=== PATIENT | male | born 1940 | race Caucasian/White ===

== ENCOUNTER 2023-04-16 10:44 | Outpatient (OUT) | payer MEDICARE, BC, SELFPAY ==
[2023-04-16 11:09] LABS: Basophils Absolute Auto 0.1 10^3/uL (0.0-0.1); Basophils Percent Auto 0.6 % (0.2-2.0); Eosinophils Absolute Auto 0.4 10^3/uL (0.0-0.7); Eosinophils Percent Auto 4.4 % (0.9-7.0); Hematocrit 34.5 % (42.0-54.0); Hemoglobin 11.3 g/dL (14.0-18.0); Immature Granulocytes Abs Auto 0.05 10^3/uL (0.00-0.03); Immature Granulocytes Pct Auto 0.5 % (0.0-0.5); Lymphocytes Absolute Auto 3.1 10^3/uL (1.2-3.8); Lymphocytes Percent Auto 30.6 % (20.5-60.0); Mean Corpuscular HGB Conc 32.8 g/dL (29.9-35.2); Mean Corpuscular Hemoglobin 31.2 pg (25.9-34.0); Mean Corpuscular Volume 95.3 fL (80.0-94.0); Mean Platelet Volume 9.3 fL (9.5-13.5); Monocytes Absolute Auto 0.6 10^3/uL (0.3-0.8); Monocytes Percent Auto 6.1 % (1.7-12.0); Neutrophils Absolute Auto 5.8 10^3/uL (1.4-6.5); Neutrophils Percent Auto 57.8 % (43.0-75.0); Platelet Count 235 10^3/uL (150-450); Red Blood Count 3.62 10^6/uL (4.70-6.10); Red Cell Distribution Width 14.6 % (11.0-15.0)
[2023-04-16 11:54] LABS: Alanine Aminotransferase 18 U/L (16-63); Albumin Globulin Ratio 0.7; Albumin Level 3.2 g/dL (3.4-5.0); Alkaline Phosphatase 63 U/L (46-116); Anion Gap 15.6; Aspartate Amino Transferase 12 U/L (15-37); BUN Creatinine Ratio 27.9; Bilirubin Total 0.1 mg/dL (0.2-1.0); Calcium 9.8 mg/dL (8.5-10.1); Carbon Dioxide 23.5 mmol/L (21.0-32.0); Chloride 106 mmol/L (98-107); Estimated GFR (African America 48 (>=60); Estimated GFR (Non-African Ame 40 (>=60); Globulin 4.8 g/dL; Glucose 153 mg/dL (74-106); Potassium 5.1 mmol/L (3.5-5.1); Sodium 140 mmol/L (136-145)
== END 2023-04-16 10:45 | disposition home or self-care (01) ==
LOC: LAB 10:50
PROVIDERS: PCP Family Medicine
DX: I95.89 Other hypotension (principal)
CPT/HCPCS: 36415; 80053; 85025

== ENCOUNTER 2023-06-11 11:27 | Outpatient (OUT) | payer MEDICARE, BC, SELFPAY ==
[2023-06-11 15:12] LABS: Prostate Specific Antigen Dx 0.69 ng/mL (<=4.00)
== END 2023-06-11 11:28 | disposition home or self-care (01) ==
LOC: LAB 11:31
PROVIDERS: PCP Family Medicine; Visit Provider Urology
DX: Z85.46 Personal history of malignant neoplasm of prostate (principal)
CPT/HCPCS: 36415; 84153

== ENCOUNTER 2023-06-11 11:34 | Outpatient (OUT) | payer MEDICARE, BC, SELFPAY ==
[2023-06-11 12:07] LABS: Basophils Absolute Auto 0.1 10^3/uL (0.0-0.1); Basophils Percent Auto 0.6 % (0.2-2.0); Eosinophils Absolute Auto 0.5 10^3/uL (0.0-0.7); Eosinophils Percent Auto 6.5 % (0.9-7.0); Hemoglobin 11.6 g/dL (14.0-18.0); Immature Granulocytes Abs Auto 0.03 10^3/uL (0.00-0.03); Immature Granulocytes Pct Auto 0.4 % (0.0-0.5); Lymphocytes Absolute Auto 2.7 10^3/uL (1.2-3.8); Lymphocytes Percent Auto 33.7 % (20.5-60.0); Mean Corpuscular HGB Conc 31.4 g/dL (29.9-35.2); Mean Corpuscular Hemoglobin 30.9 pg (25.9-34.0); Mean Corpuscular Volume 98.7 fL (80.0-94.0); Monocytes Absolute Auto 0.6 10^3/uL (0.3-0.8); Monocytes Percent Auto 7.7 % (1.7-12.0); Neutrophils Absolute Auto 4.1 10^3/uL (1.4-6.5); Neutrophils Percent Auto 51.1 % (43.0-75.0); Platelet Count 217 10^3/uL (150-450); Red Blood Count 3.75 10^6/uL (4.70-6.10); Red Cell Distribution Width 14.6 % (11.0-15.0)
[2023-06-11 12:38] LABS: Alanine Aminotransferase 21 U/L (16-63); Albumin Globulin Ratio 0.8; Albumin Level 3.6 g/dL (3.4-5.0); Alkaline Phosphatase 59 U/L (46-116); Anion Gap 14.2; Aspartate Amino Transferase 18 U/L (15-37); BUN Creatinine Ratio 29.3; Bilirubin Total 0.1 mg/dL (0.2-1.0); Calcium 9.7 mg/dL (8.5-10.1); Carbon Dioxide 26.1 mmol/L (21.0-32.0); Chloride 103 mmol/L (98-107); Estimated GFR (African America 42 (>=60); Estimated GFR (Non-African Ame 34 (>=60); Globulin 4.3 g/dL; Glucose 143 mg/dL (74-106); Potassium 5.3 mmol/L (3.5-5.1); Sodium 138 mmol/L (136-145); Total Protein 7.9 g/dL (6.4-8.2)
== END 2023-06-11 11:35 | disposition home or self-care (01) ==
PROVIDERS: PCP Family Medicine; Visit Provider Nurse Practitioner Acute Care
DX: I95.89 Other hypotension (principal); Z85.46 Personal history of malignant neoplasm of prostate
CPT/HCPCS: 36415; 80053; 84153; 85025

== ENCOUNTER 2023-08-21 09:57 | Outpatient (OUT) | payer MEDICARE, BC, SELFPAY ==
--- NOTE | 2023-08-21 10:06 | ECG_ITS ---
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
[2023-08-21 11:22] LABS: Basophils Percent Auto 0.5 % (0.2-2.0); Eosinophils Absolute Auto 0.4 10^3/uL (0.0-0.7); Eosinophils Percent Auto 5.1 % (0.9-7.0); Hematocrit 41.8 % (42.0-54.0); Hemoglobin 13.4 g/dL (14.0-18.0); Immature Granulocytes Abs Auto 0.02 10^3/uL (0.00-0.03); Immature Granulocytes Pct Auto 0.3 % (0.0-0.5); Lymphocytes Absolute Auto 2.5 10^3/uL (1.2-3.8); Lymphocytes Percent Auto 33.3 % (20.5-60.0); Mean Corpuscular HGB Conc 32.1 g/dL (29.9-35.2); Mean Corpuscular Hemoglobin 32.3 pg (25.9-34.0); Mean Corpuscular Volume 100.7 fL (80.0-94.0); Mean Platelet Volume 9.9 fL (9.5-13.5); Monocytes Absolute Auto 0.5 10^3/uL (0.3-0.8); Monocytes Percent Auto 6.2 % (1.7-12.0); Neutrophils Percent Auto 54.6 % (43.0-75.0); Platelet Count 191 10^3/uL (150-450); Red Blood Count 4.15 10^6/uL (4.70-6.10); Red Cell Distribution Width 13.3 % (11.0-15.0); White Blood Count 7.4 10^3/uL (4.0-11.0)
[2023-08-21 11:44] LABS: INR 0.99; Partial Thromboplastin Time 24.9 sec (22.3-36.2); Prothrombin Time 10.5 sec (9.0-11.6)
[2023-08-21 12:20] LABS: Anion Gap 14.3; BUN Creatinine Ratio 27.8; Calcium 9.9 mg/dL (8.5-10.1); Carbon Dioxide 24.9 mmol/L (21.0-32.0); Chloride 103 mmol/L (98-107); Estimated GFR (African America 37 (>=60); Estimated GFR (Non-African Ame 30 (>=60); Glucose 204 mg/dL (74-106); Potassium 5.2 mmol/L (3.5-5.1); Sodium 137 mmol/L (136-145)
== END 2023-08-21 09:58 | disposition home or self-care (01) ==
LOC: PST 09:59
PROVIDERS: PCP Family Medicine; Visit Provider Urology
DX: Z01.810 Encounter for preprocedural cardiovascular examination (principal); Z01.812 Encounter for preprocedural laboratory examination; Z85.46 Personal history of malignant neoplasm of prostate; K21.9 Gastro-esophageal reflux disease without esophagitis; E78.5 Hyperlipidemia, unspecified; N39.46 Mixed incontinence; I10 Essential (primary) hypertension; E11.9 Type 2 diabetes mellitus without complications; Z79.01 Long term (current) use of anticoagulants; I48.91 Unspecified atrial fibrillation; Z95.0 Presence of cardiac pacemaker
CPT/HCPCS: 80048; 84153; 85025; 85610; 85730; 93005

== ENCOUNTER 2023-08-21 10:20 | Outpatient (OUT) | payer MEDICARE, BC, SELFPAY ==
[2023-08-21 12:36] LABS: Prostate Specific Antigen Dx 0.98 ng/mL (<=4.00)
== END 2023-08-21 10:21 | disposition home or self-care (01) ==
LOC: LAB 10:22
PROVIDERS: PCP Family Medicine; Visit Provider Family Medicine
DX: Z85.46 Personal history of malignant neoplasm of prostate (principal)
CPT/HCPCS: 84153

== ENCOUNTER 2023-08-30 10:33 | Day surgery (SDC) | payer MEDICARE, BC, SELFPAY ==
[2023-08-21 10:59] VITALS: BP 128/81; PULSE 82; RESP 20; TEMP 36.2; O2SAT 97; BMI 25.2
[2023-08-30 11:14] LABS: Glucometer 308 mg/dL (74-106)
[2023-08-30 11:15] VITALS: BP 173/91; PULSE 85; RESP 18; TEMP 36.3; O2SAT 96
[2023-08-30] MEDS: INSULIN ASPART 300 UNIT/3 ML PEN SUBQ (11:43)
[2023-08-30] MEDS: LACTATED RINGER'S SOLUTION 1,000 ML 50 ML IV (11:50)
[2023-08-30 12:28] LABS: Glucometer 217 mg/dL (74-106)
[2023-08-30] MEDS: GENTAMICIN SULFATE 80 MG in 0.9 % SODIUM CHLORIDE 100 ML 204 MG IV (12:48)
[2023-08-30] MEDS: LIDOCAINE HCL 2% 400 MG/20 ML MDV 10 ML INJ (13:38)
[2023-08-30 13:58] VITALS: BP 200/105; PULSE 82; RESP 16; TEMP 36.3; O2SAT 97
--- NOTE | 2023-08-30 14:03 | P.URON_ITS ---
Urology Surgery Operative Note Operative Note Procedure Date: 08/30/23 Time Out Performed: yes Pre-op Diagnosis: total urinary incontinence Post-op Diagnosis: same as pre-op Procedures performed: #1. Cystoscopy. #2. Percutaneous placement of [address] [place] suprapubic tube#3. Urethral meatal dilation to [address] [place]. Anesthesia: MAC and local Primary Surgeon: Ozzy Webster Complications: non- Estimated blood loss (mL): 10 Findings: meatal stenosis. Specimens: none Drains: [address] [place] suprapubic tube Indications for Procedures: this gentleman has had a radical prostatectomy and radiation therapy. He has had total urinary incontinence for many years. He has had a chronic urethral Bland catheter. He then switched to a condom catheter. He is desirous for a suprapubic tube. All risks have been explained to him and he signed an informed consent for cystoscopy and percutaneous placement of suprapubic tube. Detailed description of Procedure: The patient was brought to the operating room and placed on the operating room table in the supine position. SCDs were placed on the lower extremities and turned on and functioning during the entire case. Timeout was done by all parties in the room. We all agreed upon the patient's identification and the planned procedures for this patient. Genn. anesthesia was then administered. The patient was then repositioned into the modified dorsal lithotomy position. All pressure points were satisfactorily padded. Genitalia and abdomen were sterilely prepped and draped in usual fashion.I started by attempting to pass a flexible cystoscope per urethra but was unable due to meatal stenosis. I then used Mary Grace sounds and dilated him up to 24 [address] [place]. I then passed the flexible cystoscope per urethra and into the bladder. The urethra was fairly unremarkable. Panendoscopy in the bladder showed no evidence of any tumors stones or foreign bodies or mucosal lesions. While the bladder was fully distended I palpated suprapubically retirement between the umbilicus and the pubic bone. This was right at the dome of the bladder. It was also right along his radical prostatectomy incision scar. I then injected 1 percent plain lidocaine in the skin creating a wheal and then deeper in the subcutaneous tissues. I then passed a spinal needle through the wheal and then deeply into the dome of the bladder while viewing this endoscopically. The needle was removed.I then used a 15 blade scalpel and made a 2 cm incision over this area. I then used a hemostat to bluntly dissect through the incision down to the bladder. I then removed the cystoscope and then passed a [place] tractor through the urethra and into the bladder. the jaws were then pushed anteriorly to the incision and I was able to palpate the [place] while placing an index finger through the suprapubic incision. I then used the Bovie cautery and cut down onto the [place]. The [place] then was protruding out of the bladder and out of the incision suprapubically. I then gained a purchase on the [address] [place] Bland catheter in the [place] jaws. I then brought the catheter into the bladder and released it in the bladder and then put 30 mL of fluid in the balloon and then removed the [place] tractor. I then passed the cystoscope back in the bladder and could see that the balloon of the suprapubic tube was r ight at the dome of the bladder as desired. The scope was then removed. I then turned my attention to the incision suprapubically. 3-0 Vicryl was used in an interruptted fashion to close the subcutaneous. 5-0 nylon was used in an interrupted fashion to close the skin. The tube was taped to the abdomen in a curvilinear fashion with silk tape. A sterile dressing was placed over the incision. The tube was connected to a leg bag and this was strapped to his thigh. He was then transferred to a [facility] bed and wheeled to PACU in stable condition.
[2023-08-30 14:04] LABS: Glucometer 182 mg/dL (74-106)
[2023-08-30 14:13] VITALS: BP 196/107; PULSE 79; RESP 16; O2SAT 96
--- NOTE | 2023-08-30 14:15 | PC.NURSE ---
DR RODRIGUEZ IS AWARE THAT THE BLOOD PRESSURE OF THIS PATINET IS ELEVATED. HE STATES IT HAS BEEN ELEVATED THROUGHOUT THE ENTIRE CASE.
== END 2023-08-30 14:41 | disposition home or self-care (01) ==
PROVIDERS: PCP Family Medicine; Visit Provider Urology
PROC: (CPT 51102; principal; 2023-08-30 11:40)
DX: N39.498 Other specified urinary incontinence (principal); Z90.79 Acquired absence of other genital organ(s); N35.911 Unspecified urethral stricture, male, meatal; I48.91 Unspecified atrial fibrillation; Z85.46 Personal history of malignant neoplasm of prostate; I10 Essential (primary) hypertension; E78.5 Hyperlipidemia, unspecified; E11.9 Type 2 diabetes mellitus without complications; K21.9 Gastro-esophageal reflux disease without esophagitis; Z87.442 Personal history of urinary calculi; Z87.440 Personal history of urinary (tract) infections; N39.46 Mixed incontinence; Z79.4 Long term (current) use of insulin; Z79.84 Long term (current) use of oral hypoglycemic drugs; Z79.899 Other long term (current) drug therapy
CPT/HCPCS: 51102; 52281; 36415; 82948; J2704

== ENCOUNTER 2023-09-06 13:42 | Observation (INO) | payer MEDICARE, BC, SELFPAY ==
[2023-09-06] VITALS (24 sets, daily range): BP systolic 109–164; BP diastolic 60–95; PULSE 79–106; RESP 13–27; TEMP 36.5–37.1; O2SAT 88–97; BMI 28.4; BMI 26.3
--- NOTE | 2023-09-06 13:56 | ED.ABDPAIN1 ---
HPI - Abdominal Pain General Chief Complaint: Abdominal Pain Stated Complaint: GENERAL WEAKNESS Time Seen by Provider: 09/06/23 13:47 Source: patient Mode of arrival: ambulance History of Present Illness HPI narrative: Patient BIBS from home for evaluation after he complained of abdominal pain for the last two days. He had a suprapubic catheter placed by Dr Webster on 08/30/23 and the dalton is draining yellow urine without clots or blood. No fever or vomiting. The patient was given Xanax before EMS brought him to our ED. According to the family, the patient is at his baseline mentation, with limited ability to answer questions. Related Data Home Medications Medication Instructions Recorded Confirmed alprazolam 1 mg tablet 1 mg PO TID 08/21/23 08/30/23 aspirin 81 mg tablet,delayed 81 mg PO DAILY 08/21/23 08/30/23 release (Adult Aspirin Regimen) calcium carbonate 600 mg-vitamin 1 tab PO DAILY 08/21/23 08/30/23 D3 5 mcg (200 unit) tablet cetirizine 10 mg tablet (All Day 10 mg PO DAILY PRN allergy symptoms 08/21/23 08/30/23 Allergy (cetirizine)) cilostazol 50 mg tablet 50 mg PO BID 08/21/23 08/30/23 citalopram 10 mg tablet 10 mg PO DAILY 08/21/23 08/30/23 diphenhydramine-acetaminophen 2 tab PO QPM 08/21/23 08/30/23 diphenoxylate-atropine 2.5 1 tab PO Q6H PRN diarrhea 08/21/23 08/30/23 mg-0.025 mg tablet (Lomotil) ferrous sulfate 325 mg (65 mg 325 mg PO BID 08/21/23 08/30/23 iron) tablet (Feosol) fluticasone propionate 50 2 spray intranasal Q12H 08/21/23 08/30/23 mcg/actuation nasal spray,suspension gabapentin 100 mg capsule 100 mg PO TID 08/21/23 08/30/23 insulin glargine 100 unit/mL (3 25 unit subcut DAILY 08/21/23 08/30/23 mL) subcutaneous pen (Lantus Solostar U-100 Insulin) insulin lispro 100 unit/mL 1 sliding scale dose subcut TID 08/21/23 08/30/23 subcutaneous pen (Humalog KwikPen (U-100) Insulin) lovastatin 40 mg tablet 40 mg PO DAILY 08/21/23 08/30/23 magnesium 250 mg tablet 250 mg PO BID 08/21/23 08/30/23 metformin 500 mg tablet,extended 1,000 mg PO DAILY 08/21/23 08/30/23 release 24 hr metoprolol succinate 25 mg 25 mg PO DAILY 08/21/23 08/21/23 tablet,extended release 24 hr midodrine 10 mg tablet 10 mg PO BID 08/21/23 08/30/23 mirtazapine 45 mg tablet 45 mg PO QPM 08/21/23 08/30/23 montelukast 10 mg tablet 10 mg PO DAILY 08/21/23 08/30/23 multivitamin (Daily Multi-Vitamin 1 tab PO DAILY 08/21/23 08/30/23 tablet) omeprazole 40 mg capsule,delayed 40 mg PO DAILY 08/21/23 08/30/23 release sodium zirconium cyclosilicate 5 g PO .Three times a week 08/21/23 gram oral powder packet (Evomail) Previous Rx's Medication Instructions Recorded nitrofurantoin 100 mg PO BID 5 days #10 caps 08/30/23 monohydrate/macrocrystals 100 mg capsule (Macrobid) Allergies Allergy/AdvReac Type Severity Reaction Status Date / Time amoxicillin [From Augmentin] Allergy Diarrhea Verified 08/21/23 10:27 canagliflozin [From Invokana] Allergy Unknown Verified 08/21/23 10:27 clavulanic acid Allergy Diarrhea Verified 08/21/23 10:27 [From Augmentin] hydroxyzine Allergy Anxiety Verified 08/21/23 10:27 levofloxacin Allergy joint pain Verified 08/21/23 10:27 mirabegron [From Myrbetriq] Allergy Unknown Verified 08/21/23 10:27 pioglitazone [From Actos] Allergy Abdominal Verified 08/21/23 10:27 Pain PFSH PFS Medical History (Updated 09/06/23 @ 15:07 by Akil White) Abnormal TRUS (transrectal ultrasound), prostate ?R93.89 - Abnormal findings on diagnostic imaging of other specified body structures (ICD-10) Amputation toe ?S98.139A - Complete traumatic amputation of one unspecified lesser toe, initial encounter (ICD-10) Anemia ?D64.9 - Anemia, unspecified (ICD-10) Arthritis ?M19.90 - Unspecified osteoarthritis, unspecified site (ICD-10) Asthma ?J45.909 - Unspecified asthma, uncomplicated (ICD-10) Atrial fibrillation ?I48.91 - Unspecified atrial fibrillation (ICD-10) Diabetes ?E11.9 - Type 2 diabetes mellitus without complications (ICD-10) Elevated PSA ?R97.20 - Elevated prostate specific antigen [PSA] (ICD-10) Glucosuria ?R81 - Glycosuria (ICD-10) H/O esophageal reflux ?Z87.19 - Personal history of other diseases of the digestive system (ICD-10) History of blood transfusion ?Z92.89 - Personal history of other medical treatment (ICD-10) Kidney stones ?N20.0 - Calculus of kidney (ICD-10) Mixed incontinence ?N39.46 - Mixed incontinence (ICD-10) Pacemaker ?Z95.0 - Presence of cardiac pacemaker (ICD-10) Pneumonia ?J18.9 - Pneumonia, unspecified organism (ICD-10) Prostate cancer ?C61 - Malignant neoplasm of prostate (ICD-10) Seasonal allergic rhinitis ?J30.2 - Other seasonal allergic rhinitis (ICD-10) Tremor ?R25.1 - Tremor, unspecified (ICD-10) Ulcer of gastric fundus ?K25.9 - Gastric ulcer, unspecified as acute or chronic, without hemorrhage or perforation (ICD-10) Urinary tract infection ?N39.0 - Urinary tract infection, site not specified (ICD-10) Surgical History (Updated 08/30/23 @ 11:53 by Gracie Cabral) H/O cataract extraction ?Z98.49 - Cataract extraction status, unspecified eye (ICD-10) H/O hand surgery ?Z98.890 - Other specified postprocedural states (ICD-10) H/O lithotripsy ?Z98.890 - Other specified postprocedural states (ICD-10) H/O prostate biopsy ?Z98.890 - Other specified postprocedural states (ICD-10) H/O radical prostatectomy ?Z90.79 - Acquired absence of other genital organ(s) (ICD-10) H/O wrist surgery ?Z98.890 - Other specified postprocedural states (ICD-10) History of arthroscopy of knee ?Z98.890 - Other specified postprocedural states (ICD-10) History of colonoscopy ?Z98.890 - Other specified postprocedural states (ICD-10) History of ear surgery ?Z98.890 - Other specified postprocedural states (ICD-10) History of esophagogastroduodenoscopy ?Z98.890 - Other specified postprocedural states (ICD-10) Family History (Updated 08/21/23 @ 10:37 by Le Mata NP) Other Alcoholism Family history of lung cancer Social History (Updated 08/21/23 @ 10:29 by Le Mata NP) Within the past year, how often did you have a drink containing alcohol: never Score interpretation: A score less than 4 is consistent with normal alcohol consumption. Smoking status: Never smoker Highest level of school completed/degree received: high school graduate Exam Constitutional Vital Signs, click to edit/add: Last Vital Signs Temp 98.8 F 09/06/23 13:45 Pulse 83 09/06/23 15:01 Resp 24 09/06/23 15:01 BP 137/85 09/06/23 15:01 Pulse Ox 97 09/06/23 15:01 O2 Del Method Room Air 09/06/23 13:45 Course Vital Signs Vital signs: Vital Signs Temperature 98.8 F 09/06/23 13:45 Pulse Rate 90 09/06/23 13:45 Respiratory Rate 14 09/06/23 13:45 Blood Pressure 137/86 09/06/23 13:45 Pulse Oximetry 94 L 09/06/23 13:45 Oxygen Delivery Method Room Air 09/06/23 13:45 Temperature 98.8 F 09/06/23 13:45 Pulse Rate 83 09/06/23 15:01 Respiratory Rate 24 09/06/23 15:01 Blood Pressure 137/85 09/06/23 15:01 Pulse Oximetry 97 09/06/23 15:01 Oxygen Delivery Method Room Air 09/06/23 13:45 MDM - Abdominal Pain MDM Narrative Medical decision making narrative: Peripheral IV established. Blood drawn and sent for testing. Urine also sent for testing. CT abd/pelvis obtained without IVC due to the patient's increased BUN/Cr and low GFR. During the patient's ED visits, his BUn and Cr have been steadily increasing. 04/16 = 46, 1.65. 06/11 = 55, 1.88. 08/21 = 58, 2.09. 09/06 = 63, 2.12. UA shows Leuk Est, large bacteria and marked WBC = acute UTI. Normal WBC and no left shift noted. Electrolytes normal. Patient given IV Rocephin and 1L NS IVF. UCx pending and his antibiotic therapy can be adjusted accordingly. CT abd/pelvis revealed left hydronephrosis and hydroureter with what could be either a recently passed stone or distal left ureteral inflammation, per radiologist. Case discussed with Dr Finney and due to the patient's worsening renal function, UTI and ureteral changes, the patient will be admitted on obs basis, [facility], Dr Finney's service.. Medical Records Attestation: I reviewed the patient's medical records. Lab Data Attestation: I reviewed the patient's lab results. Labs: Lab Results 09/06/23 Range/Units 14:02 WBC 9.8 (4.0-11.0) 10^3/uL RBC 3.70 L (4.70-6.10) 10^6/uL Hgb 11.7 L (14.0-18.0) g/dL Hct 37.1 L (42.0-54.0) % MCV 100.3 H (80.0-94.0) fL MCH 31.6 (25.9-34.0) pg MCHC 31.5 (29.9-35.2) g/dL RDW 13.4 (11.0-15.0) % Plt Count 208 (150-450) 10^3/uL MPV 9.8 (9.5-13.5) fL Neut % (Auto) 66.6 (43.0-75.0) % Lymph % (Auto) 21.6 (20.5-60.0) % [place] % (Auto) 5.0 (1.7-12.0) % Eos % (Auto) 5.9 (0.9-7.0) % Baso % (Auto) 0.6 (0.2-2.0) % Neut # (Auto) 6.5 (1.4-6.5) 10^3/uL Lymph # (Auto) 2.1 (1.2-3.8) 10^3/uL [place] # (Auto) 0.5 (0.3-0.8) 10^3/uL Eos # (Auto) 0.6 (0.0-0.7) 10^3/uL Baso # (Auto) 0.1 (0.0-0.1) 10^3/uL Abs Immat Gran (auto) 0.03 (0.00-0.03) 10^3/uL Imm/Tot Granulo (auto) 0.3 (0.0-0.5) % Sodium 139 (136-145) mmol/L Potassium 5.2 H (3.5-5.1) mmol/L Chloride 104 (98-107) mmol/L Carbon Dioxide 25.4 (21.0-32.0) mmol/L Anion Gap 14.8 BUN 63.0 H (7.0-18.0) mg/dL Creatinine 2.12 H (0.70-1.30) mg/dL Est GFR ( Amer) 36 L (>=60) Est GFR (Non-Af Amer) 30 L (>=60) BUN/Creatinine Ratio 29.7 Glucose 282 H (74-106) mg/dL Calcium 9.2 (8.5-10.1) mg/dL Total Bilirubin 0.2 (0.2-1.0) mg/dL AST 10 L (15-37) U/L ALT 17 (16-63) U/L Alkaline Phosphatase 57 (46-116) U/L Total Protein 7.3 (6.4-8.2) g/dL Albumin 3.0 L (3.4-5.0) g/dL Globulin 4.3 g/dL Albumin/Globulin Ratio 0.7 Urine Color Lt. yellow (YELLOW) Urine Clarity Sl cloudy (CLEAR) Urine pH 6.0 (5.0-9.0) Ur Specific [place] 1.015 (1.005-1.025) Urine Protein 30 A (NEG/TRACE) mg/dL Urine Glucose (UA) >=1000 A (NEGATIVE) mg/dL Urine Ketones Negative (NEGATIVE) mg/dL Urine Occult Blood Large A (NEGATIVE) Urine Nitrite Negative (NEGATIVE) Urine Bilirubin Negative (NEGATIVE) Urine Urobilinogen 0.2 (0.2-1.0) EU/dL Ur Leukocyte Esterase Moderate A (NEGATIVE) Urine RBC 50-75 A (0-2) #/HPF Urine WBC 20-50 A (NONE SEEN) #/HPF Ur Squamous Epith Cells Rare (NONE/RARE) #/LPF Urine Crystals None seen (None Seen) #/HPF Urine Bacteria Large A (NONE SEEN) #/HPF Urine Casts None seen (NONE SEEN) #/LPF Urine Mucus None seen (NONE SEEN) Ur Culture Indicated? Yes Imaging Data CT scan - abdomen: Radiologist's impression: Patient Name: RALPH GARG MRN: [facility]:[id number] date: 1940 Sex: M Assigned Patient Location: ER Current Patient Location: ER Accession/Order Number: [id number] Exam Date: 09/06/2023 14:15 Report Date: 09/06/2023 14:48 At the request of: AKIL WHITE Procedure: CT abdomen pelvis wo con EXAM: CT ABDOMEN AND PELVIS WITHOUT CONTRAST HISTORY: generalized abdominal pain abdominal pain for one week. COMPARISON: None. TECHNIQUE: Computed tomography of the abdomen and pelvis was performed without intravenous contrast with a renal stone protocol. Coronal and sagittal reformations were obtained. Dose reduction: mA and/or kV are adjusted by automated exposure control software based on patient size. FINDINGS: There is diffuse cortical thinning and scarring of both kidneys. There are renal cysts bilaterally, largest is a predominantly exophytic cyst off the lower pole left kidney at 6.2 cm. There is a hyperdense cyst at the lateral right kidney interpolar region measuring 1.8 cm. Smaller hyperdense and simple cysts are noted. There are 2 nonobstructing stones in the left kidney, the larger stone at the lower pole measuring 8 x 6 mm. There is mild left hydroureteronephrosis, with dilated ureter to the ureterovesicular junction, without ureteral calculus seen. There is no hydronephrosis on the right. There is a suprapubic catheter decompressing the diffusely thick-walled and mildly inflamed bladder. There is no stones seen within the bladder lumen. Prostate gland is atrophic or surgically absent. Soft tissue structures are suboptimally evaluated without intravenous contrast. Liver and spleen size are normal. Minimal wall thickening with possible minimal stranding of the nondistended gallbladder. No radiopaque gallstones or biliary ductal dilatation. Mildly atrophic pancreas, otherwise normal. Adrenal glands are normal. There is a small amount of oral contrast, fluid, and gas within the stomach. There is a small periampullary duodenal diverticulum. Small bowel is normal. There is a moderate to large volume of stool throughout the colon, with large stool ball in the rectum measuring approximately 6 cm. No significant diverticular disease. There is a normal appendix (image 94 series 3). There is no free fluid. No mesenteric inflammation or free air. There is atherosclerosis of the abdominal aorta and branch vessels. No abdominal aortic aneurysm. Tiny fat-containing bilateral inguinal hernias. There are degenerative changes throughout the spine, with slight retrolisthesis of L3 on L4 and minimal grade 1 anterolisthesis of L4 on L5. No compression fracture or acute osseous abnormality. IMPRESSION: 1. Normal appendix. 2. Negative for bowel obstruction. Large stool ball in the rectum, with moderate to large stool burden; correlate for any symptoms of constipation. No focal bowel inflammation or significant diverticular disease. 3. Suprapubic catheter decompressing the bladder with bladder wall thickening and inflammation reflecting cystitis/bladder infection. No bladder stone identified. 4. Atrophic kidneys with scarring and bilateral renal simple cysts and complicated/hemorrhagic cysts. There is mild left hydroureteronephrosis with dilated ureters seen to the left ureterovesicular junction. No ureteral calculus visualized, and findings could be due to recent passage of a stone from the left side or inflammatory stricture at the left ureterovesicular junction given appearance of the bladder. No hydronephrosis or ureteral calculus on the right. 5. Nondistended gallbladder with subtle gallbladder wall thickening and possible minimal stranding that could be artifactual from lack of distention but correlate for any right upper quadrant symptoms. Follow-up gallbladder ultrasound if clinically indicated. No biliary ductal dilatation. Mildly atrophic pancreas otherwise normal. 6. No free fluid, mesenteric inflammation, or free air. Electronically authenticated by: MARIBEL TRAVIS Date: 09/06/2023 14:48 ECG Data Attestation: ?I have reviewed the pertinent ECG results. Interpretation: EKG interpretation: Emergency Department physician interpretation. wide qrs with what appear to be pacer spikes in leads I, III, aVR, aVL, aVF. Rate 99bpm, regular rhythm. Discharge Plan Discharge Chief Complaint: Abdominal Pain Clinical Impression: Acute renal injury, Hydroureteronephrosis, Acute UTI Patient Disposition: Admitted as Observation Time of Disposition Decision: 15:06 Prescriptions / Home Meds: No Action alprazolam 1 mg tablet 1 mg PO TID cilostazol 50 mg tablet 50 mg PO BID citalopram 10 mg tablet 10 mg PO DAILY fluticasone propionate 50 mcg/actuation spray,suspension 2 spray INTRANASAL Q12H gabapentin 100 mg capsule 100 mg PO TID insulin glargine [Lantus Solostar U-100 Insulin] 100 unit/mL (3 mL) insulin pen 25 unit SUBCUT DAILY insulin lispro [Humalog KwikPen Insulin] 100 unit/mL insulin pen 1 sliding scale dose SUBCUT TID lovastatin 40 mg tablet 40 mg PO DAILY metformin 500 mg tablet extended release 24 hr 1,000 mg PO DAILY metoprolol succinate 25 mg tablet extended release 24 hr 25 mg PO DAILY midodrine 10 mg tablet 10 mg PO BID mirtazapine 45 mg tablet 45 mg PO QPM montelukast 10 mg tablet 10 mg PO DAILY omeprazole 40 mg capsule,delayed release(DR/EC) 40 mg PO DAILY Lokelma 5 gram powder in packet PO .Three times a week ferrous sulfate [Feosol] 325 mg (65 mg iron) tablet 325 mg PO BID aspirin [Adult Aspirin Regimen] 81 mg tablet,delayed release (DR/EC) 81 mg PO DAILY calcium carbonate-vitamin D3 600 mg-5 mcg (200 unit) tablet 1 tab PO DAILY cetirizine [All Day Allergy (cetirizine)] 10 mg tablet 10 mg PO DAILY PRN (Reason: allergy symptoms) magnesium 250 mg tablet 250 mg PO BID multivitamin [Daily Multi-Vitamin] Tablet 1 tab PO DAILY diphenhydramine-acetaminophen [Tylenol PM Extra Strength] 2 tab PO QPM diphenoxylate-atropine [Lomotil] 2.5-0.025 mg tablet 1 tab PO Q6H PRN (Reason: diarrhea) nitrofurantoin monohyd/m-cryst [Macrobid] 100 mg capsule 100 mg PO BID 5 Days Qty: 10 0RF Rx Instructions: must administer with a meal/food Additional Instructions: dr finney, obs, medsurg Referrals: Seb Finney MD [Primary Care Provider] - 1 week
[2023-09-06 14:08] LABS: Basophils Absolute Auto 0.1 10^3/uL (0.0-0.1); Basophils Percent Auto 0.6 % (0.2-2.0); Eosinophils Absolute Auto 0.6 10^3/uL (0.0-0.7); Eosinophils Percent Auto 5.9 % (0.9-7.0); Hematocrit 37.1 % (42.0-54.0); Hemoglobin 11.7 g/dL (14.0-18.0); Immature Granulocytes Abs Auto 0.03 10^3/uL (0.00-0.03); Immature Granulocytes Pct Auto 0.3 % (0.0-0.5); Lymphocytes Absolute Auto 2.1 10^3/uL (1.2-3.8); Lymphocytes Percent Auto 21.6 % (20.5-60.0); Mean Corpuscular HGB Conc 31.5 g/dL (29.9-35.2); Mean Corpuscular Hemoglobin 31.6 pg (25.9-34.0); Mean Corpuscular Volume 100.3 fL (80.0-94.0); Mean Platelet Volume 9.8 fL (9.5-13.5); Monocytes Absolute Auto 0.5 10^3/uL (0.3-0.8); Neutrophils Absolute Auto 6.5 10^3/uL (1.4-6.5); Neutrophils Percent Auto 66.6 % (43.0-75.0); Platelet Count 208 10^3/uL (150-450); Red Cell Distribution Width 13.4 % (11.0-15.0); White Blood Count 9.8 10^3/uL (4.0-11.0)
--- NOTE | 2023-09-06 14:13 | ECG_ITS ---
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: : 1940 Requested By: FARZAD DODSON Order Number: [id number] Reading MD: FARZAD DODSON Measurements Intervals [place] Rate: 99 P: 43 CA: 132 QRS: -83 QRSD: 128 T: 61 QT: 396 QTc: 452 Interpretive Statements 1100 Sinus rhythm 1470 with occasional supraventricular premature complexes 3332 Anterolateral myocardial infarction, probably recent 3434 Septal myocardial infarction, age undetermined 3634 Inferior myocardial infarction, age undetermined 9150 abnormal ECG Compared to ECG 08/21/2023 10:50:31 Myocardial infarct finding now present Ventricular-paced complex(es) or rhythm no longer present Electronically Signed On 09-08-2023 6:56:23 EST by FARZAD DODSON
[2023-09-06 14:17] LABS: Bilirubin Urine NEGATIVE (NEGATIVE); Blood Urine LARGE (NEGATIVE); Clarity Urine SL CLOUDY (CLEAR); Color Urine LT. YELLOW (YELLOW); Glucose Urine UA >=1000 mg/dL (NEGATIVE); Ketones Urine NEGATIVE (NEGATIVE); Leukocyte Esterase Urine MODERATE (NEGATIVE); Nitrite Urine NEGATIVE (NEGATIVE); Protein Urine 30 mg/dL (NEG/TRACE); Specific Gravity Urine 1.015 (1.005-1.025); Urobilinogen Urine 0.2 EU/dL (0.2-1.0)
[2023-09-06 14:19] LABS: Urine Microscopic Indicated YES
[2023-09-06 14:28] LABS: Alanine Aminotransferase 17 U/L (16-63); Albumin Globulin Ratio 0.7; Alkaline Phosphatase 57 U/L (46-116); Anion Gap 14.8; Aspartate Amino Transferase 10 U/L (15-37); BUN Creatinine Ratio 29.7; Bilirubin Total 0.2 mg/dL (0.2-1.0); Calcium 9.2 mg/dL (8.5-10.1); Carbon Dioxide 25.4 mmol/L (21.0-32.0); Chloride 104 mmol/L (98-107); Estimated GFR (African America 36 (>=60); Estimated GFR (Non-African Ame 30 (>=60); Globulin 4.3 g/dL; Glucose 282 mg/dL (74-106); Potassium 5.2 mmol/L (3.5-5.1); Sodium 139 mmol/L (136-145); Total Protein 7.3 g/dL (6.4-8.2)
[2023-09-06 14:29] LABS: Bacteria Urine LARGE #/HPF (NONE SEEN); Cast Seen? NONE SEEN #/LPF (NONE SEEN); Crystals Seen? None Seen #/HPF (None Seen); Mucus Urine NONE SEEN (NONE SEEN); RBC Urine 50-75 #/HPF (0-2); Squamous Epithelial Cell Urine RARE #/LPF (NONE/RARE); Urine Culture Indicated YES; WBC Urine 20-50 #/HPF (NONE SEEN)
[2023-09-06] MEDS: 0.9 % SODIUM CHLORIDE 1,000 ML 1000 ML IV (14:49)
[2023-09-06] MEDS: CEFTRIAXONE 1,000 MG in 0.9 % SODIUM CHLORIDE 50 ML 100 MG IV (14:49)
[2023-09-06] MEDS: HYDROMORPHONE HCL 0.5 MG/0.5 ML SYRINGE IV (17:17)
[2023-09-06 17:50] LABS: Lactate/Lactic Acid 1.8 mmol/L (0.4-2.0)
[2023-09-06 17:55] LABS: Basophils Absolute Auto 0.1 10^3/uL (0.0-0.1); Basophils Percent Auto 0.5 % (0.2-2.0); Eosinophils Absolute Auto 0.8 10^3/uL (0.0-0.7); Eosinophils Percent Auto 7.4 % (0.9-7.0); Hemoglobin 11.3 g/dL (14.0-18.0); Immature Granulocytes Abs Auto 0.03 10^3/uL (0.00-0.03); Immature Granulocytes Pct Auto 0.3 % (0.0-0.5); Lymphocytes Absolute Auto 2.5 10^3/uL (1.2-3.8); Lymphocytes Percent Auto 24.8 % (20.5-60.0); Mean Corpuscular HGB Conc 31.4 g/dL (29.9-35.2); Mean Corpuscular Hemoglobin 31.4 pg (25.9-34.0); Mean Platelet Volume 9.9 fL (9.5-13.5); Monocytes Absolute Auto 0.6 10^3/uL (0.3-0.8); Monocytes Percent Auto 5.9 % (1.7-12.0); Neutrophils Absolute Auto 6.2 10^3/uL (1.4-6.5); Neutrophils Percent Auto 61.1 % (43.0-75.0); Platelet Count 205 10^3/uL (150-450); Red Cell Distribution Width 13.2 % (11.0-15.0); White Blood Count 10.2 10^3/uL (4.0-11.0)
[2023-09-06 18:03] LABS: Alanine Aminotransferase 15 U/L (16-63); Albumin Globulin Ratio 0.7; Albumin Level 2.9 g/dL (3.4-5.0); Alkaline Phosphatase 57 U/L (46-116); Anion Gap 14.2; Aspartate Amino Transferase 10 U/L (15-37); BUN Creatinine Ratio 30.1; Bilirubin Total 0.2 mg/dL (0.2-1.0); Carbon Dioxide 27.1 mmol/L (21.0-32.0); Chloride 106 mmol/L (98-107); Estimated GFR (African America 40 (>=60); Estimated GFR (Non-African Ame 33 (>=60); Globulin 4.2 g/dL; Glucose 206 mg/dL (74-106); Potassium 5.3 mmol/L (3.5-5.1); Sodium 142 mmol/L (136-145); Total Protein 7.1 g/dL (6.4-8.2)
[2023-09-06] MEDS: LACTATED RINGER'S SOLUTION 1,000 ML 100 ML IV (18:17)
[2023-09-06] MEDS: CIPROFLOXACIN IN 5 % DEXTROSE 400 MG/200 ML PIGGYBACK 200 MG IV (20:22)
[2023-09-06] MEDS: FERROUS SULFATE 325 MG TABLET PO (20:22)
[2023-09-06] MEDS: MAGNESIUM OXIDE 400 MG TABLET PO (20:23)
[2023-09-06] MEDS: CILOSTAZOL 100 MG TABLET 50 MG PO (20:23)
[2023-09-06] MEDS: MIRTAZAPINE 15 MG TABLET 45 MG PO (20:23)
[2023-09-06 20:31] LABS: Glucometer 331 mg/dL (74-106)
[2023-09-06] MEDS: GABAPENTIN 100 MG CAPSULE PO (22:19)
[2023-09-06] MEDS: ATORVASTATIN CALCIUM 20 MG TABLET PO (22:19)
[2023-09-06] MEDS: ALPRAZOLAM 1 MG TABLET 2 MG PO (22:19)
[2023-09-06] MEDS: INSULIN ASPART 300 UNIT/3 ML PEN SUBQ (22:27)
[2023-09-07] VITALS (13 sets, daily range): BP systolic 99–161; BP diastolic 62–90; PULSE 86–97; RESP 18; TEMP 36.6–36.7; O2SAT 90–95
[2023-09-07] MEDS: LACTATED RINGER'S SOLUTION 1,000 ML 100 ML IV ×2 (04:19→14:18)
[2023-09-07] MEDS: ALPRAZOLAM 1 MG TABLET 2 MG PO ×3 (05:25→20:54)
[2023-09-07] MEDS: GABAPENTIN 100 MG CAPSULE PO ×3 (05:26→20:49)
[2023-09-07 07:22] LABS: Basophils Percent Auto 0.5 % (0.2-2.0); Eosinophils Absolute Auto 0.7 10^3/uL (0.0-0.7); Eosinophils Percent Auto 8.2 % (0.9-7.0); Hematocrit 31.7 % (42.0-54.0); Hemoglobin 10.3 g/dL (14.0-18.0); Immature Granulocytes Abs Auto 0.02 10^3/uL (0.00-0.03); Immature Granulocytes Pct Auto 0.2 % (0.0-0.5); Lymphocytes Absolute Auto 2.4 10^3/uL (1.2-3.8); Lymphocytes Percent Auto 28.9 % (20.5-60.0); Mean Corpuscular HGB Conc 32.5 g/dL (29.9-35.2); Mean Corpuscular Hemoglobin 32.5 pg (25.9-34.0); Mean Platelet Volume 9.4 fL (9.5-13.5); Monocytes Absolute Auto 0.6 10^3/uL (0.3-0.8); Monocytes Percent Auto 7.6 % (1.7-12.0); Neutrophils Absolute Auto 4.5 10^3/uL (1.4-6.5); Neutrophils Percent Auto 54.6 % (43.0-75.0); Platelet Count 168 10^3/uL (150-450); Red Blood Count 3.17 10^6/uL (4.70-6.10); Red Cell Distribution Width 13.3 % (11.0-15.0); White Blood Count 8.2 10^3/uL (4.0-11.0)
--- NOTE | 2023-09-07 07:24 | P.HP_ITS ---
H&P: HPI History of Present Illness Chief complaint: GENERAL WEAKNESS Renal Injury UTI Hydronephesis Narrative: Patient with recent suprapubic catheter placement had increasing abdominal pain. In ER found to have acute UTI. CT scan did not show any significant abnormality. With leukocytosis and acute kidney injury and uncontrolled hypertension patient was admitted to the hospital in observation status Review of Systems ROS Constitutional Denies: fever or chills Ears, nose, mouth, and throat Denies: throat pain Cardiovascular Denies: chest pain Respiratory Denies: shortness of breath Gastrointestinal Reports: abdominal pain and nausea Musculoskeletal Reports: back pain Neurological Denies: headache [facility] Medical History (Updated 09/06/23 @ 15:07 by Kel Ya) Abnormal TRUS (transrectal ultrasound), prostate ?R93.89 - Abnormal findings on diagnostic imaging of other specified body structures (ICD-10) Amputation toe ?S98.139A - Complete traumatic amputation of one unspecified lesser toe, initial encounter (ICD-10) Anemia ?D64.9 - Anemia, unspecified (ICD-10) Arthritis ?M19.90 - Unspecified osteoarthritis, unspecified site (ICD-10) Asthma ?J45.909 - Unspecified asthma, uncomplicated (ICD-10) Atrial fibrillation ?I48.91 - Unspecified atrial fibrillation (ICD-10) Diabetes ?E11.9 - Type 2 diabetes mellitus without complications (ICD-10) Elevated PSA ?R97.20 - Elevated prostate specific antigen [PSA] (ICD-10) Glucosuria ?R81 - Glycosuria (ICD-10) H/O esophageal reflux ?Z87.19 - Personal history of other diseases of the digestive system (ICD-10) History of blood transfusion ?Z92.89 - Personal history of other medical treatment (ICD-10) Kidney stones ?N20.0 - Calculus of kidney (ICD-10) Mixed incontinence ?N39.46 - Mixed incontinence (ICD-10) Pacemaker ?Z95.0 - Presence of cardiac pacemaker (ICD-10) Pneumonia ?J18.9 - Pneumonia, unspecified organism (ICD-10) Prostate cancer ?C61 - Malignant neoplasm of prostate (ICD-10) Seasonal allergic rhinitis ?J30.2 - Other seasonal allergic rhinitis (ICD-10) Tremor ?R25.1 - Tremor, unspecified (ICD-10) Ulcer of gastric fundus ?K25.9 - Gastric ulcer, unspecified as acute or chronic, without hemorrhage or perforation (ICD-10) Urinary tract infection ?N39.0 - Urinary tract infection, site not specified (ICD-10) Surgical History (Updated 08/30/23 @ 11:53 by Gracie Cabral) H/O cataract extraction ?Z98.49 - Cataract extraction status, unspecified eye (ICD-10) H/O hand surgery ?Z98.890 - Other specified postprocedural states (ICD-10) H/O lithotripsy ?Z98.890 - Other specified postprocedural states (ICD-10) H/O prostate biopsy ?Z98.890 - Other specified postprocedural states (ICD-10) H/O radical prostatectomy ?Z90.79 - Acquired absence of other genital organ(s) (ICD-10) H/O wrist surgery ?Z98.890 - Other specified postprocedural states (ICD-10) History of arthroscopy of knee ?Z98.890 - Other specified postprocedural states (ICD-10) History of colonoscopy ?Z98.890 - Other specified postprocedural states (ICD-10) History of ear surgery ?Z98.890 - Other specified postprocedural states (ICD-10) History of esophagogastroduodenoscopy ?Z98.890 - Other specified postprocedural states (ICD-10) Family History (Updated 08/21/23 @ 10:37 by Le Mata NP) Other Alcoholism Family history of lung cancer Social History (Updated 08/21/23 @ 10:29 by Le Mata NP) Within the past year, how often did you have a drink containing alcohol: never Score interpretation: A score less than 4 is consistent with normal alcohol consumption. Smoking status: Never smoker Highest level of school completed/degree received: high school graduate Do you think of yourself as: straight/heterosexual Gender Identity: male Meds Home Medications and Allergies Home Medications Medication Instructions Recorded Confirmed Type alprazolam 1 mg tablet 2 mg PO TID 08/21/23 09/06/23 History aspirin 81 mg tablet,delayed 81 mg PO DAILY 08/21/23 09/06/23 History release (Adult Aspirin Regimen) calcium carbonate 600 mg-vitamin 2 tab PO DAILY 08/21/23 09/06/23 History D3 5 mcg (200 unit) tablet cetirizine 10 mg tablet (All Day 10 mg PO DAILY PRN allergy symptoms 08/21/23 09/06/23 History Allergy (cetirizine)) cilostazol 50 mg tablet 50 mg PO BID 08/21/23 09/06/23 History diphenhydramine-acetaminophen 2 tab PO QPM 08/21/23 09/06/23 History diphenoxylate-atropine 2.5 1 tab PO Q6H PRN diarrhea 08/21/23 09/06/23 History mg-0.025 mg tablet (Lomotil) ferrous sulfate 325 mg (65 mg 325 mg PO BID 08/21/23 09/06/23 History iron) tablet (Feosol) fluticasone propionate 50 2 spray intranasal Q12H 08/21/23 09/06/23 History mcg/actuation nasal spray,suspension gabapentin 100 mg capsule 100 mg PO TID 08/21/23 09/06/23 History insulin glargine 100 unit/mL (3 25 unit subcut DAILY 08/21/23 09/06/23 History mL) subcutaneous pen (Lantus Solostar U-100 Insulin) insulin lispro 100 unit/mL 1 sliding scale dose subcut TID 08/21/23 09/06/23 History subcutaneous pen (Humalog KwikPen (U-100) Insulin) lovastatin 40 mg tablet 80 mg PO DAILY 08/21/23 09/06/23 History magnesium 250 mg tablet 250 mg PO BID 08/21/23 09/06/23 History metformin 500 mg tablet,extended 1,000 mg PO DAILY 08/21/23 09/06/23 History release 24 hr metoprolol succinate 25 mg 25 mg PO DAILY 08/21/23 09/06/23 History tablet,extended release 24 hr midodrine 10 mg tablet 10 mg PO BID 08/21/23 09/06/23 History mirtazapine 45 mg tablet 45 mg PO QPM 08/21/23 09/06/23 History montelukast 10 mg tablet 10 mg PO DAILY 08/21/23 09/06/23 History multivitamin (Daily Multi-Vitamin 1 tab PO DAILY 08/21/23 09/06/23 History tablet) omeprazole 40 mg capsule,delayed 40 mg PO DAILY 08/21/23 09/06/23 History release sodium zirconium cyclosilicate 5 5 g PO .4 times weekly 08/21/23 09/06/23 History gram oral powder packet (Lokelma) citalopram 20 mg tablet (Celexa) 20 mg PO DAILY 09/06/23 09/06/23 History Allergies Allergy/AdvReac Type Severity Reaction Status Date / Time amoxicillin [From Augmentin] Allergy Diarrhea Verified 08/21/23 10:27 canagliflozin [From Invokana] Allergy Unknown Verified 08/21/23 10:27 clavulanic acid Allergy Diarrhea Verified 08/21/23 10:27 [From Augmentin] hydroxyzine Allergy Anxiety Verified 08/21/23 10:27 levofloxacin Allergy joint pain Verified 08/21/23 10:27 mirabegron [From Myrbetriq] Allergy Unknown Verified 08/21/23 10:27 pioglitazone [From Actos] Allergy Abdominal Verified 08/21/23 10:27 Pain Exam Constitutional Vital Signs, click to edit/add: Last Vital Signs Temp 98.1 F 09/07/23 05:50 Pulse 97 H 09/07/23 05:50 Resp 18 09/07/23 05:50 BP 114/68 09/07/23 05:50 Pulse Ox 94 L 09/07/23 06:21 O2 Del Method Nasal Cannula 09/07/23 06:21 O2 Flow Rate 1 09/07/23 06:21 Documenting provider has reviewed patient's vital signs: yes Common normals: no apparent distress HENMT Common normals: normocephalic and head/scalp atraumatic Chest Common normals: inspection of chest normal Respiratory Common normals: normal respiratory effort, no use of accessory muscles and clear to auscultation bilaterally (Distant breath sounds) Cardio Rate: tachycardic Rhythm: abnormal rhythm GI Common normals: Normal to inspection, nondistended, normoactive bowel sounds present (Abdomen soft, nontender, did not palpate near surgical site ) Results Labs Labs: Short CBC 09/06/23 09/06/23 09/07/23 Range/Units 14:02 17:41 07:15 WBC 9.8 10.2 8.2 (4.0-11.0) 10^3/uL Hgb 11.7 L 11.3 L 10.3 L (14.0-18.0) g/dL Hct 37.1 L 36.0 L 31.7 L (42.0-54.0) % Plt Count 208 205 168 (150-450) 10^3/uL BMP 09/06/23 09/06/23 14:02 17:41 Sodium 139 142 Potassium 5.2 H 5.3 H Chloride 104 106 Carbon Dioxide 25.4 27.1 BUN 63.0 H 59.0 H Creatinine 2.12 H 1.96 H Glucose 282 H 206 H Calcium 9.2 9.0 Liver Function 09/06/23 09/06/23 Range/Units 14:02 17:41 Total Bilirubin 0.2 0.2 (0.2-1.0) mg/dL AST 10 L 10 L (15-37) U/L ALT 17 15 L (16-63) U/L Alkaline Phosphatase 57 57 (46-116) U/L Albumin 3.0 L 2.9 L (3.4-5.0) g/dL Urine 09/06/23 Range/Units 14:02 Urine Color Lt. yellow (YELLOW) Urine Clarity Sl cloudy (CLEAR) Urine pH 6.0 (5.0-9.0) Ur Specific [place] 1.015 (1.005-1.025) Urine Protein 30 A (NEG/TRACE) mg/dL Urine Glucose (UA) >=1000 A (NEGATIVE) mg/dL Assessment and Plan Assessment and Plan (1) Acute renal injury: (2) Hydroureteronephrosis: (3) Acute UTI: (4) Atrial fibrillation: (5) Diabetes: Plan Severe abdominal pain requiring narcotic administration IV to control pain. Secondary to acute UTI and recent suprapubic catheter placement. Labs from this morning are still pending. Culture will return tomorrow. Maintain current IV antibiotics Acute kidney injury-continue with fluid resuscitation. Check on labs later this morning. Hyperkalemia-patient not taking supplemental potassium is likely related to his acute kidney injury. Serial labs pending Constipation noted on CT scan-try MiraLAX Acute hypoxia-possibly related to narcotic medications, will check chest x-ray for possible fluid overload Atrial fibrillation-rate fairly well controlled with metoprolol Diabetes mellitus-continue with home medications plus insulin sliding scale. GERD-continue his home medications Depression with anxiety-continue with home medications Hypomagnesemia-check levels continue supplementation Low back pain with peripheral neuropathy-continue with home medications Patient currently observation status-May need inpatient status depending on lab results from this morning. Discussed possible rehab. We will have physical therapy evaluate patient's ability to be rehabed, consult to social welfare administrator. May benefit from more intensive home medical care
--- NOTE | 2023-09-07 07:36 | XR_ITS ---
[address] [address] Patient Name: RALPH GARG MRN: [id number] date: 1940 Sex: M Assigned Patient Location: [place] Current Patient Location: [place] Accession/Order Number: [id number] Exam Date: 09/07/2023 07:54 Report Date: 09/07/2023 08:46 At the request of: FARZAD DODSON Procedure: XR chest 1V EXAMINATION: XR chest 1V HISTORY: acute hypoxia COMPARISON: 02/09/2023 TECHNIQUE: AP portable erect FINDINGS: LUNGS: Low lung volumes. Mild left basilar infiltrate obscuring the hemidiaphragm. Mild right midlung infiltrate with thickening of minor fissure VASCULATURE: No increased pulmonary vasculature. PLEURA: No pneumothorax, effusion, or pleural thickening. CARDIAC: No cardiomegaly or cardiac silhouette abnormality. MEDIASTINUM: No visible mass or adenopathy. Left bipolar pacemaker BONES: No fracture or visible bone lesion. Degenerative changes of the shoulders OTHER: Negative. XR/XR chest 1V IMPRESSION: Mild right mid lung and left basilar infiltrates Electronically authenticated by: KORI KERR Date: 09/07/2023 08:46
[2023-09-07 07:37] LABS: Anion Gap 13.4; BUN Creatinine Ratio 27.4; Calcium 8.8 mg/dL (8.5-10.1); Carbon Dioxide 26.7 mmol/L (21.0-32.0); Chloride 107 mmol/L (98-107); Estimated GFR (African America 41 (>=60); Estimated GFR (Non-African Ame 34 (>=60); Glucose 197 mg/dL (74-106); Potassium 5.1 mmol/L (3.5-5.1); Sodium 142 mmol/L (136-145)
[2023-09-07 07:58] LABS: Magnesium 1.8 mg/dL (1.8-2.4)
[2023-09-07] MEDS: CIPROFLOXACIN IN 5 % DEXTROSE 400 MG/200 ML PIGGYBACK 200 MG IV (09:36)
[2023-09-07] MEDS: FLUTICASONE PROPIONATE 50 MCG NASAL SPRAY 2 SPRAY NS (09:37)
[2023-09-07] MEDS: POLYETHYLENE GLYCOL 3350 17 GM POWDER PACKET PO (09:37)
[2023-09-07] MEDS: INSULIN DETEMIR 300 UNIT/3 ML INSULN.PEN 25 UNIT SUBQ (09:37)
[2023-09-07] MEDS: METOPROLOL SUCCINATE 25 MG TAB.ER.24H PO (09:38)
[2023-09-07] MEDS: ASPIRIN 81 MG TABLET.DR PO (09:38)
[2023-09-07] MEDS: CALCIUM CARBONATE 600 MG/VITAMIN D3 400 IU TABLET 1 TAB PO (09:38)
[2023-09-07] MEDS: MAGNESIUM OXIDE 400 MG TABLET PO ×2 (09:38→20:51)
[2023-09-07] MEDS: CITALOPRAM HYDROBROMIDE 20 MG TABLET PO ×2 (09:38→09:39)
[2023-09-07] MEDS: FERROUS SULFATE 325 MG TABLET PO ×2 (09:38→20:51)
[2023-09-07] MEDS: OMEPRAZOLE 40 MG CAPSULE.DR PO (09:38)
[2023-09-07] MEDS: MONTELUKAST SODIUM 10 MG TABLET PO (09:38)
[2023-09-07] MEDS: HYOSCYAMINE SULFATE 0.125 MG TAB.SUBL SL (09:38)
[2023-09-07] MEDS: CILOSTAZOL 100 MG TABLET 50 MG PO ×2 (09:38→20:50)
[2023-09-07] MEDS: MULTIVITAMIN TABLET 1 TAB PO (09:39)
[2023-09-07] MEDS: MIDODRINE HCL 5 MG TABLET 10 MG PO (09:40)
--- NOTE | 2023-09-07 09:41 | CM.NOTE ---
Discussed with pt and family regarding discharge planning. Pt is Medicare and does not meet for 3 day inpt stay. Pt and family verbalize understanding of out of pocket costs. Pt and family interested in looking into alf. Pt and family requesting [facility] for AL or intermediate project manager. Called and spoke with Pamela and referral sent. Hu will meet with family to discuss options. Family will update Case Management after meeting with Hu.
--- NOTE | 2023-09-07 09:46 | CM.NOTE ---
Medicare Outpatient Observation Notice discussed with pt and family, both verbalize understanding and sign paper. Original given to pt and copy placed on chart.
[2023-09-07 11:11] LABS: Glucometer 357 mg/dL (74-106)
[2023-09-07] MEDS: SODIUM ZIRCONIUM CYCLOSILICATE 10 GM POWD.PACK 5 GM PO (11:32)
[2023-09-07] MEDS: INSULIN ASPART 300 UNIT/3 ML PEN SUBQ ×2 (11:33→21:26)
--- NOTE | 2023-09-07 12:02 | CM.NOTE ---
Family are meeting with Hu for tour of [facility] today around 4:00 regarding discharge planning.
--- NOTE | 2023-09-07 13:52 | CM.NOTE ---
Messaged Dr. Walton regarding family plan and possible [place] at discharge.
--- NOTE | 2023-09-07 15:34 | NUTR.NU ---
Pt w/MST score of 1 d/t diminished appetite. He ordered a light breakfast of cereal, milk, toast, and applesauce; lunch of fish, potatoes, green beans, milk, and fruit. Appetite appears to be improving; will continue to follow PRN.
[2023-09-07 17:37] LABS: Glucometer 117 mg/dL (74-106)
[2023-09-07] MEDS: CIPROFLOXACIN IN 5 % DEXTROSE 400 MG/200 ML PIGGYBACK 150 MG IV (20:48)
[2023-09-07] MEDS: DIPHENHYDRAMINE HCL 25 MG CAPSULE PO (20:49)
[2023-09-07] MEDS: MIRTAZAPINE 15 MG TABLET 45 MG PO (20:49)
[2023-09-07] MEDS: ATORVASTATIN CALCIUM 20 MG TABLET PO (20:50)
[2023-09-07 21:09] LABS: Glucometer 359 mg/dL (74-106)
[2023-09-08] MEDS: LACTATED RINGER'S SOLUTION 1,000 ML 100 ML IV (00:18)
[2023-09-08 04:15] VITALS: BP 123/76; PULSE 100; RESP 18; TEMP 36.7; O2SAT 90
[2023-09-08 04:45] VITALS: O2SAT 91
[2023-09-08] MEDS: ALPRAZOLAM 1 MG TABLET 2 MG PO (04:48)
[2023-09-08] MEDS: GABAPENTIN 100 MG CAPSULE PO (04:49)
[2023-09-08 05:02] LABS: Basophils Absolute Auto 0.1 10^3/uL (0.0-0.1); Basophils Percent Auto 0.6 % (0.2-2.0); Eosinophils Absolute Auto 0.6 10^3/uL (0.0-0.7); Eosinophils Percent Auto 6.8 % (0.9-7.0); Hematocrit 32.9 % (42.0-54.0); Hemoglobin 10.2 g/dL (14.0-18.0); Immature Granulocytes Abs Auto 0.04 10^3/uL (0.00-0.03); Immature Granulocytes Pct Auto 0.5 % (0.0-0.5); Lymphocytes Absolute Auto 2.6 10^3/uL (1.2-3.8); Lymphocytes Percent Auto 32.3 % (20.5-60.0); Mean Corpuscular Hemoglobin 31.3 pg (25.9-34.0); Mean Corpuscular Volume 100.9 fL (80.0-94.0); Mean Platelet Volume 9.9 fL (9.5-13.5); Monocytes Absolute Auto 0.7 10^3/uL (0.3-0.8); Monocytes Percent Auto 8.3 % (1.7-12.0); Neutrophils Absolute Auto 4.1 10^3/uL (1.4-6.5); Neutrophils Percent Auto 51.5 % (43.0-75.0); Platelet Count 187 10^3/uL (150-450); Red Blood Count 3.26 10^6/uL (4.70-6.10); Red Cell Distribution Width 13.3 % (11.0-15.0); White Blood Count 8.1 10^3/uL (4.0-11.0)
[2023-09-08 05:57] LABS: Anion Gap 11.9; BUN Creatinine Ratio 23.6; Calcium 9.2 mg/dL (8.5-10.1); Carbon Dioxide 27.8 mmol/L (21.0-32.0); Chloride 107 mmol/L (98-107); Estimated GFR (African America 45 (>=60); Estimated GFR (Non-African Ame 37 (>=60); Glucose 125 mg/dL (74-106); Potassium 4.7 mmol/L (3.5-5.1); Sodium 142 mmol/L (136-145)
[2023-09-08 06:14] LABS: Magnesium 1.7 mg/dL (1.8-2.4)
[2023-09-08] MEDS: MULTIVITAMIN TABLET 1 TAB PO (08:42)
[2023-09-08] MEDS: MAGNESIUM OXIDE 400 MG TABLET PO (08:42)
[2023-09-08] MEDS: CITALOPRAM HYDROBROMIDE 20 MG TABLET PO (08:42)
[2023-09-08] MEDS: HYOSCYAMINE SULFATE 0.125 MG TAB.SUBL SL (08:42)
[2023-09-08] MEDS: ASPIRIN 81 MG TABLET.DR PO (08:42)
[2023-09-08] MEDS: CALCIUM CARBONATE 600 MG/VITAMIN D3 400 IU TABLET 1 TAB PO (08:42)
[2023-09-08] MEDS: METOPROLOL SUCCINATE 25 MG TAB.ER.24H PO (08:42)
[2023-09-08] MEDS: OMEPRAZOLE 40 MG CAPSULE.DR PO (08:42)
[2023-09-08] MEDS: MONTELUKAST SODIUM 10 MG TABLET PO (08:42)
[2023-09-08] MEDS: CILOSTAZOL 100 MG TABLET 50 MG PO (08:42)
[2023-09-08] MEDS: FERROUS SULFATE 325 MG TABLET PO (08:42)
[2023-09-08] MEDS: CIPROFLOXACIN IN 5 % DEXTROSE 400 MG/200 ML PIGGYBACK 200 MG IV (08:42)
[2023-09-08] MEDS: MIDODRINE HCL 5 MG TABLET 10 MG PO (08:44)
[2023-09-08] MEDS: FLUTICASONE PROPIONATE 50 MCG NASAL SPRAY 2 SPRAY NS (08:45)
[2023-09-08] MEDS: INSULIN DETEMIR 300 UNIT/3 ML INSULN.PEN 25 UNIT SUBQ (08:45)
--- NOTE | 2023-09-08 09:56 | P.DS_ITS ---
DS: Providers Provider Date of admission: 09/06/23 15:51 Primary care physician: Seb Dodson MD Consults: 09/06/23 17:18 Occupational Therapy Eval and Treat Routine Reason for consultation: Only if needed for Rehab Has provider been notified: No Physical Therapy Eval and Treat Routine Reason for consultation: Eval and Treat Has provider been notified: No 09/07/23 07:16 Consult to Service Technician Copier Routine Reason for consult:: Senior Living Other reason:: Did explain to him is harder to get into rehab since needs to be rehabable DS: Diagnosis Discharge Diagnosis (1) Acute renal injury: (2) Hydroureteronephrosis: (3) Acute UTI: (4) Atrial fibrillation: (5) Diabetes: Plan Severe abdominal pain requiring narcotic administration IV to control pain. Acute kidney injury-continue with fluid resuscitation. Hyperkalemia Constipation noted on CT scan Acute hypoxia-possibly related to narcotic medications, Atrial fibrillation- Diabetes mellitus GERD Depression with anxiety Hypomagnesemia Low back pain with peripheral neuropathy DS: Summary Hospital Course Hospital Course: Pt admitted with severe abd pain posgt suprapubic catherterplacment -= CT without issue except possible recent passed stone . Work up found to have pseudomonas uTI - sensitivities pending - he feels improved today. Back to his baseline pain., Pt still weak, could benefit from rehab, family willing to continue to work iwht him at home. Follow up on cx results tomorrow. do not need to see in office as is difficult to get out of the house. [email or web address] seed list, d/c condition stable Status at Discharge Overall status at discharge: patient is not back to baseline Time Spent with Patient Time attestation: Total time spent providing and/or coordinating discharge services: Exam Constitutional Vital Signs, click to edit/add: Last Vital Signs Temp 98.0 F 09/08/23 04:15 Pulse 100 H 09/08/23 04:15 Resp 18 09/08/23 04:15 BP 123/76 09/08/23 04:15 Pulse Ox 91 L 09/08/23 04:45 O2 Del Method Room Air 09/08/23 04:45 O2 Flow Rate 1 09/07/23 06:21 Documenting provider has reviewed patient's vital signs: yes Common normals: no apparent distress [facility] Common normals: normocephalic and head/scalp atraumatic Chest Common normals: inspection of chest normal Respiratory Common normals: normal respiratory effort, no use of accessory muscles and clear to auscultation bilaterally (Distant breath sounds) Cardio Rate: tachycardic Rhythm: abnormal rhythm GI Common normals: Normal to inspection, nondistended, normoactive bowel sounds present (Abdomen soft, nontender, did not palpate near surgical site ) DS: Data Data Completed and Pending Labs on day of discharge: Labs from last 24 hours 09/08/23 09/07/23 09/07/23 04:33 21:07 17:35 WBC 8.1 RBC 3.26 L Hgb 10.2 L Hct 32.9 L MCV 100.9 H MCH 31.3 MCHC 31.0 RDW 13.3 Plt Count 187 MPV 9.9 Neut % (Auto) 51.5 Lymph % (Auto) 32.3 [place] % (Auto) 8.3 Eos % (Auto) 6.8 Baso % (Auto) 0.6 Neut # (Auto) 4.1 Lymph # (Auto) 2.6 [place] # (Auto) 0.7 Eos # (Auto) 0.6 Baso # (Auto) 0.1 Abs Immat Gran (auto) 0.04 H Imm/Tot Granulo (auto) 0.5 Sodium 142 Potassium 4.7 Chloride 107 Carbon Dioxide 27.8 Anion Gap 11.9 BUN 41.0 H Creatinine 1.74 H Est GFR ( Amer) 45 L Est GFR (Non-Af Amer) 37 L BUN/Creatinine Ratio 23.6 Glucose 125 H Calcium 9.2 Magnesium 1.7 L NT-Pro-B Natriuret Pep 1357.0 POC Glucose 359 H 117 H 09/07/23 11:10 WBC RBC Hgb Hct MCV MCH MCHC RDW Plt Count MPV Neut % (Auto) Lymph % (Auto) [place] % (Auto) Eos % (Auto) Baso % (Auto) Neut # (Auto) Lymph # (Auto) [place] # (Auto) Eos # (Auto) Baso # (Auto) Abs Immat Gran (auto) Imm/Tot Granulo (auto) Sodium Potassium Chloride Carbon Dioxide Anion Gap BUN Creatinine Est GFR ( Amer) Est GFR (Non-Af Amer) BUN/Creatinine Ratio Glucose Calcium Magnesium NT-Pro-B Natriuret Pep POC Glucose 357 H Discharge Plan Discharge Disposition: Home, Self-Care Discharge Medications: New citalopram 20 mg Tablet 20 mg PO DAILY Qty: 60 11RF ciprofloxacin HCl [Cipro] 500 mg tablet 500 mg PO BID Qty: 20 1RF Continued alprazolam 1 mg tablet 2 mg PO TID Patient Comments: Medication has been increased to 2mg per family by DR DODSON cilostazol 50 mg tablet 50 mg PO BID fluticasone propionate 50 mcg/actuation spray,suspension 2 spray INTRANASAL Q12H gabapentin 100 mg capsule 100 mg PO TID insulin glargine [Lantus Solostar U-100 Insulin] 100 unit/mL (3 mL) insulin pen 25 unit SUBCUT DAILY insulin lispro [Humalog KwikPen Insulin] 100 unit/mL insulin pen 1 sliding scale dose SUBCUT TID lovastatin 40 mg tablet 80 mg PO DAILY Rx Instructions: PER RETAIL FILL HX LAST FILLED 07/18/23 #180 FOR A 90 DAY SUPPLY metformin 500 mg tablet extended release 24 hr 1,000 mg PO DAILY metoprolol succinate 25 mg tablet extended release 24 hr 25 mg PO DAILY midodrine 10 mg tablet 10 mg PO BID mirtazapine 45 mg tablet 45 mg PO QPM montelukast 10 mg tablet 10 mg PO DAILY omeprazole 40 mg capsule,delayed release(DR/EC) 40 mg PO DAILY Lokelma 5 gram powder in packet 5 g PO .4 times weekly Patient Comments: Sunday ferrous sulfate [Feosol] 325 mg (65 mg iron) tablet 325 mg PO BID aspirin [Adult Aspirin Regimen] 81 mg tablet,delayed release (DR/EC) 81 mg PO DAILY Patient Comments: Patient states he takes 325 coated ASA calcium carbonate-vitamin D3 600 mg-5 mcg (200 unit) tablet 2 tab PO DAILY cetirizine [All Day Allergy (cetirizine)] 10 mg tablet 10 mg PO DAILY PRN (Reason: allergy symptoms) magnesium 250 mg tablet 250 mg PO BID multivitamin [Daily Multi-Vitamin] Tablet 1 tab PO DAILY diphenhydramine-acetaminophen [Tylenol PM Extra Strength] 2 tab PO QPM diphenoxylate-atropine [Lomotil] 2.5-0.025 mg tablet 1 tab PO Q6H PRN (Reason: diarrhea) citalopram [Celexa] 20 mg tablet 20 mg PO DAILY Activity: increase activity as tolerated Diet: advance to your usual diet Patient Instructions: Ciprofloxacin (By mouth), Citalopram (By mouth), Acute Kidney Injury (DC), Urinary Tract Infection in Men (DC) Forms: Portal Instructions Referrals: Seb Dodson MD [Primary Care Provider] - 1 week Follow Up Appointments: Please schedule follow up with Dr. Dodson for within one week [phone]
--- NOTE | 2023-09-08 10:24 | PT.DAILY ---
Physical Therapy Daily Note PT Daily Note/Assess Start: 09/08/23 10:21 Freq: Status: Active Protocol: Document 09/08/23 10:21 MAZIN (Rec: 09/08/23 10:24 MAZIN [id number]) Physical Therapy Daily Note/Assessment Time In/Time Out Time In 09:42 Time Out 09:55 Pain In Pain N/A Pain Out Pain N/A Subjective Subjective Pt supine upon arrival. Agrees to PT. Denies pain currently. Therapeutic Exercise Time Therapeutic Exercise Minutes (minutes) 3 Therapeutic Exercise Units 0 Therapeutic Exercise Treatment Therapeutic Exercise Treatment Seated AP, LAQ, marches and add squeezes 10x ea to improve LE strength/mobility. Therapeutic Activity Time Therapeutic Activity Minutes (minutes) 8 Therapeutic Activity Units 1 Therapeutic Activity Treatment Bed Mobility Ability Minimum Assist Chair Transfer Ability Contact Guard Assist Therapeutic Activity Comments Supine>sit Ke to advance upper body to sit EOB. Sit> stand to RW CGA. Pt amb 116' with RW, SBA with short step length noticed. Pt returned to room to BS chair upon completion. Seated ex complete in BS chair - increased time to complete seated ex as pt is apprehensive about catheter moving with ex. Pt remains in BS chair with call light in reach and needs met. Total Physical Therapy Time Total Therapy Minutes 11 Total Physical Therapy Units 1 Summary Daily Note Summary Increased distance with gait today using RW. Pt reports min fatigue upon completion and denies pain.
[2023-09-08 11:13] LABS: Glucometer 334 mg/dL (74-106)
--- NOTE | 2023-09-10 14:53 | CM.DCFOLLOWU ---
Person spoke with: Ockeezyn-n-cit pt's caregiver How are you feeling? He is doing much better How is your pain? No pain Did you understand your discharge instructions? Yes Do you have any questions about your discharge instructions? No Were you given any prescriptions at discharge? Yes Were you able to get your prescriptions filled? Yes Do you understand how to take your medications as ordered? Yes Do you have any questions about your follow up appointment and do you plan to keep your follow up appointment? We see Dr. Tim's on Wed Is there anything else that you would like to discuss? Not at this time Questions/Comments/Concerns/Other:
== END 2023-09-08 11:57 | disposition home or self-care (01) ==
LOC: ER 15:07 → MS 15:57
PROVIDERS: Admitting Provider Family Medicine; Emergency Provider Emergency Medicine; PCP Family Medicine; Visit Provider Family Medicine
DX: N13.6 Pyonephrosis (principal); N17.9 Acute kidney failure, unspecified; J45.909 Unspecified asthma, uncomplicated; I48.91 Unspecified atrial fibrillation; N39.46 Mixed incontinence; Z87.442 Personal history of urinary calculi; Z87.01 Personal history of pneumonia (recurrent); C61 Malignant neoplasm of prostate; Z79.82 Long term (current) use of aspirin; Z79.4 Long term (current) use of insulin; Z79.84 Long term (current) use of oral hypoglycemic drugs; R10.9 Unspecified abdominal pain; E87.5 Hyperkalemia; K59.00 Constipation, unspecified; R09.02 Hypoxemia; K21.9 Gastro-esophageal reflux disease without esophagitis; F41.8 Other specified anxiety disorders; E83.42 Hypomagnesemia; E11.42 Type 2 diabetes mellitus with diabetic polyneuropathy; M54.50 Low back pain, unspecified; N99.89 Other postprocedural complications and disorders of genitourinary system; B96.5 Pseudomonas (aeruginosa) (mallei) (pseudomallei) as the cause of diseases classified elsewhere
CPT/HCPCS: 36415; 71045; 74176; 80048; 80053; 81001; 82948; 83605; 83735; 83880; 85025; 87086; 87186; 93005; 94667; 94761; 96365; 96366; 96367; 96375; 97161; 97165; 97530; 99285; G0378; J1170

== ENCOUNTER 2023-09-11 11:57 | Inpatient (IN) | payer MEDICARE, BC, SELFPAY ==
[2023-09-11] VITALS (25 sets, daily range): BP systolic 108–170; BP diastolic 69–94; PULSE 93–105; RESP 13–23; TEMP 36.4–36.7; O2SAT 93–100; BMI 24.4; BMI 25.5
--- NOTE | 2023-09-11 12:15 | XR_ITS ---
The [address] [address] Patient Name: RALPH GARG MRN: [id number] date: 1940 Sex: M Assigned Patient Location: ER Current Patient Location: ER Accession/Order Number: [id number] Exam Date: 09/11/2023 12:22 Report Date: 09/11/2023 12:52 At the request of: AKIL WHITE Procedure: XR chest 1V EXAM: XR chest 1V HISTORY: Tachycardia. COMPARISON: Portable chest radiograph dated 09/07/2023. TECHNIQUE: AP erect portable chest radiograph performed. FINDINGS: Stable left subclavian pacemaker with leads overlying the right atrium and the right ventricle. The trachea is midline. The cardiac silhouette is upper limits normal size and stable. There is stable mild atheromatous calcification at the aortic arch. There are low lung volumes. There is mild elevation of the right hemidiaphragm which is stable compared to the previous examination. There is no consolidation or infiltrates. There is no pleural effusion or pulmonary vascular congestion. There is no pneumothorax. There is no acute osseous abnormality. The bony structures are osteopenic. Stable narrowing of the right acromiohumeral interval suggesting rotator cuff degeneration and/or tearing. There are stable degenerative changes at the right shoulder. XR/XR chest 1V IMPRESSION: There is no acute cardiopulmonary process. Electronically authenticated by: INDIGO ROSE Date: 09/11/2023 12:52
--- NOTE | 2023-09-11 12:15 | ECG_ITS ---
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
[2023-09-11 12:39] LABS: Basophils Absolute Auto 0.1 10^3/uL (0.0-0.1); Basophils Percent Auto 0.5 % (0.2-2.0); Eosinophils Absolute Auto 0.4 10^3/uL (0.0-0.7); Eosinophils Percent Auto 3.8 % (0.9-7.0); Hematocrit 35.5 % (42.0-54.0); Hemoglobin 11.5 g/dL (14.0-18.0); Immature Granulocytes Abs Auto 0.04 10^3/uL (0.00-0.03); Immature Granulocytes Pct Auto 0.4 % (0.0-0.5); Lymphocytes Absolute Auto 2.1 10^3/uL (1.2-3.8); Lymphocytes Percent Auto 19.3 % (20.5-60.0); Mean Corpuscular HGB Conc 32.4 g/dL (29.9-35.2); Mean Corpuscular Hemoglobin 31.7 pg (25.9-34.0); Mean Corpuscular Volume 97.8 fL (80.0-94.0); Mean Platelet Volume 9.6 fL (9.5-13.5); Monocytes Absolute Auto 0.5 10^3/uL (0.3-0.8); Monocytes Percent Auto 4.1 % (1.7-12.0); Neutrophils Percent Auto 71.9 % (43.0-75.0); Platelet Count 230 10^3/uL (150-450); Red Blood Count 3.63 10^6/uL (4.70-6.10); Red Cell Distribution Width 13.4 % (11.0-15.0); White Blood Count 11.1 10^3/uL (4.0-11.0)
[2023-09-11] MEDS: 0.9 % SODIUM CHLORIDE 1,000 ML 999 ML IV (12:39)
[2023-09-11 12:55] LABS: D Dimer 2.27 mg/L FEU (<=0.59)
[2023-09-11 13:09] LABS: Alanine Aminotransferase 25 U/L (16-63); Albumin Globulin Ratio 0.7; Albumin Level 2.9 g/dL (3.4-5.0); Alkaline Phosphatase 56 U/L (46-116); Anion Gap 12.8; Aspartate Amino Transferase 19 U/L (15-37); BUN Creatinine Ratio 23.2; Bilirubin Total 0.2 mg/dL (0.2-1.0); Calcium 9.4 mg/dL (8.5-10.1); Carbon Dioxide 26.9 mmol/L (21.0-32.0); Chloride 102 mmol/L (98-107); Estimated GFR (African America 35 (>=60); Estimated GFR (Non-African Ame 29 (>=60); Globulin 4.3 g/dL; Glucose 244 mg/dL (74-106); Potassium 4.7 mmol/L (3.5-5.1); Sodium 137 mmol/L (136-145); Total Protein 7.2 g/dL (6.4-8.2); Troponin I High Sensitivity 9.6 pg/mL (4.0-76.1)
--- NOTE | 2023-09-11 13:57 | ED_ITS ---
HPI - General Adult General Chief complaint: Arrhythmia/Palpitations Stated complaint: FAST HEART RATE Time Seen by Provider: 09/11/23 12:05 Source: family Mode of arrival: Wheelchair History of Present Illness HPI narrative: Patient sent in from Dr. Walton's office after Dr. Walton from the patient to be tachycardic with a heart rate in the 120s and hypotensive in his office today. On August 30 the patient underwent suprapubic catheter placement by the urology group at [facility]. He then return to the emergency department about a week later complaining of pain at the site and discolored urine from his suprapubic catheter. He was found to have acute urinary tract infection and started on ciprofloxacin. Urine culture showed pseudomonas which was pansensitive and the patient was continued on Cipro. He now presents with decreased appetite, decreased oral intake for the last several days, continue to complain of pain at the catheter site. He is supposed to see urology tomorrow about his catheter. Dr. Walton would like the patient admitted after initial evaluation is completed. Related Data Home Medications Medication Instructions Recorded Confirmed alprazolam 1 mg tablet 2 mg PO TID 08/21/23 09/11/23 aspirin 81 mg tablet,delayed 81 mg PO DAILY 08/21/23 09/11/23 release (Adult Aspirin Regimen) calcium carbonate 600 mg-vitamin 2 tab PO DAILY 08/21/23 09/11/23 D3 5 mcg (200 unit) tablet cetirizine 10 mg tablet (All Day 10 mg PO DAILY PRN allergy symptoms 08/21/23 09/11/23 Allergy (cetirizine)) cilostazol 50 mg tablet 50 mg PO BID 08/21/23 09/11/23 diphenhydramine-acetaminophen 2 tab PO QPM 08/21/23 09/11/23 diphenoxylate-atropine 2.5 1 tab PO Q6H PRN diarrhea 08/21/23 09/11/23 mg-0.025 mg tablet (Lomotil) ferrous sulfate 325 mg (65 mg 325 mg PO BID 08/21/23 09/11/23 iron) tablet (Feosol) fluticasone propionate 50 2 spray intranasal Q12H 08/21/23 09/11/23 mcg/actuation nasal spray,suspension gabapentin 100 mg capsule 100 mg PO TID 08/21/23 09/11/23 insulin glargine 100 unit/mL (3 25 unit subcut DAILY 08/21/23 09/11/23 mL) subcutaneous pen (Lantus Solostar U-100 Insulin) insulin lispro 100 unit/mL 1 sliding scale dose subcut TID 08/21/23 09/11/23 subcutaneous pen (Humalog KwikPen (U-100) Insulin) lovastatin 40 mg tablet 80 mg PO DAILY 08/21/23 09/11/23 magnesium 250 mg tablet 250 mg PO BID 08/21/23 09/11/23 metformin 500 mg tablet,extended 1,000 mg PO DAILY 08/21/23 09/11/23 release 24 hr metoprolol succinate 25 mg 25 mg PO DAILY 08/21/23 09/11/23 tablet,extended release 24 hr midodrine 10 mg tablet 10 mg PO BID 08/21/23 09/11/23 mirtazapine 45 mg tablet 45 mg PO QPM 08/21/23 09/11/23 montelukast 10 mg tablet 10 mg PO DAILY 08/21/23 09/11/23 multivitamin (Daily Multi-Vitamin 1 tab PO DAILY 08/21/23 09/11/23 tablet) omeprazole 40 mg capsule,delayed 40 mg PO DAILY 08/21/23 09/11/23 release sodium zirconium cyclosilicate 5 5 g PO .4 times weekly 08/21/23 09/11/23 gram oral powder packet (kelnm) citalopram 20 mg tablet (Celexa) 20 mg PO DAILY 09/06/23 09/11/23 Previous Rx's Medication Instructions Recorded ciprofloxacin HCl 500 mg tablet 500 mg PO BID #20 tabs 09/08/23 (Cipro) citalopram 20 mg tablet 20 mg PO DAILY #60 tabs 09/08/23 Allergies Allergy/AdvReac Type Severity Reaction Status Date / Time amoxicillin [From Augmentin] Allergy Diarrhea Verified 08/21/23 10:27 canagliflozin [From Invokana] Allergy Unknown Verified 08/21/23 10:27 clavulanic acid Allergy Diarrhea Verified 08/21/23 10:27 [From Augmentin] hydroxyzine Allergy Anxiety Verified 08/21/23 10:27 levofloxacin Allergy joint pain Verified 08/21/23 10:27 mirabegron [From Myrbetriq] Allergy Unknown Verified 08/21/23 10:27 pioglitazone [From Actos] Allergy Abdominal Verified 08/21/23 10:27 Pain PFSH PFS Medical History (Updated 09/11/23 @ 14:08 by Kel Ya) Abnormal TRUS (transrectal ultrasound), prostate ?R93.89 - Abnormal findings on diagnostic imaging of other specified body structures (ICD-10) Amputation toe ?S98.139A - Complete traumatic amputation of one unspecified lesser toe, initial encounter (ICD-10) Anemia ?D64.9 - Anemia, unspecified (ICD-10) Arthritis ?M19.90 - Unspecified osteoarthritis, unspecified site (ICD-10) Asthma ?J45.909 - Unspecified asthma, uncomplicated (ICD-10) Atrial fibrillation ?I48.91 - Unspecified atrial fibrillation (ICD-10) Diabetes ?E11.9 - Type 2 diabetes mellitus without complications (ICD-10) Elevated PSA ?R97.20 - Elevated prostate specific antigen [PSA] (ICD-10) Glucosuria ?R81 - Glycosuria (ICD-10) H/O esophageal reflux ?Z87.19 - Personal history of other diseases of the digestive system (ICD-10) History of blood transfusion ?Z92.89 - Personal history of other medical treatment (ICD-10) Kidney stones ?N20.0 - Calculus of kidney (ICD-10) Mixed incontinence ?N39.46 - Mixed incontinence (ICD-10) Pacemaker ?Z95.0 - Presence of cardiac pacemaker (ICD-10) Pneumonia ?J18.9 - Pneumonia, unspecified organism (ICD-10) Prostate cancer ?C61 - Malignant neoplasm of prostate (ICD-10) Seasonal allergic rhinitis ?J30.2 - Other seasonal allergic rhinitis (ICD-10) Tremor ?R25.1 - Tremor, unspecified (ICD-10) Ulcer of gastric fundus ?K25.9 - Gastric ulcer, unspecified as acute or chronic, without hemorrhage or perforation (ICD-10) Urinary tract infection ?N39.0 - Urinary tract infection, site not specified (ICD-10) Surgical History (Updated 08/30/23 @ 11:53 by Gracie Cabral) H/O cataract extraction ?Z98.49 - Cataract extraction status, unspecified eye (ICD-10) H/O hand surgery ?Z98.890 - Other specified postprocedural states (ICD-10) H/O lithotripsy ?Z98.890 - Other specified postprocedural states (ICD-10) H/O prostate biopsy ?Z98.890 - Other specified postprocedural states (ICD-10) H/O radical prostatectomy ?Z90.79 - Acquired absence of other genital organ(s) (ICD-10) H/O wrist surgery ?Z98.890 - Other specified postprocedural states (ICD-10) History of arthroscopy of knee ?Z98.890 - Other specified postprocedural states (ICD-10) History of colonoscopy ?Z98.890 - Other specified postprocedural states (ICD-10) History of ear surgery ?Z98.890 - Other specified postprocedural states (ICD-10) History of esophagogastroduodenoscopy ?Z98.890 - Other specified postprocedural states (ICD-10) Family History (Updated 08/21/23 @ 10:37 by Le Mata NP) Other Alcoholism Family history of lung cancer Social History (Updated 08/21/23 @ 10:29 by Le Mata NP) Within the past year, how often did you have a drink containing alcohol: never Score interpretation: A score less than 4 is consistent with normal alcohol consumption. Smoking status: Never smoker Highest level of school completed/degree received: high school graduate Do you think of yourself as: straight/heterosexual Gender Identity: male Exam Narrative Exam Narrative: Nurses notes and vital signs reviewed and patient is not hypoxic. afebrile General: Well-appearing and in no apparent distress. Skin: Warm, dry, no pallor noted. Head: Normocephalic, atraumatic. Neck: Supple, non-tender. no meningismuss Eye: Pupils are equal, round and EOMI. No scleral icterus. Ears, Nose, Mouth, and Throat: Oral mucosa is dry Cardiovascular: tachycardia. Respiratory: No accessory muscle use or respiratory distress. Lungs are clear to auscultation, no wheezing, rales or rhonchi Back: No CVA tenderness Musculoskeletal: normal ROM, no calf or popliteal tenderness, no lower extremity edema/swelling. there are two areas of skin break in the anterior right lower leg that are erythematous. Size of erythema has increased since onset two days ago - family member showed me pictures of what look like before. GI: Abdomen is soft, non-distended. Normal bowel sounds. the suprapubic catheter site has some erythema and tenderness. I do not see any purulent discharge. No additional abdominal tenderness to palpation. No rebound, guarding, or rigidity noted. the urine draining from the catheter is cloudy Neurological: A&O x4. No cranial nerve dysfunction observed. Moves all extremities but does so weakly. Sensation intact. Psychiatric: Cooperative and interactive. Constitutional Vital Signs, click to edit/add: Last Vital Signs Temp 97.7 F 09/11/23 12:10 Pulse 93 H 09/11/23 13:30 Resp 14 09/11/23 13:30 BP 157/94 H 09/11/23 13:45 Pulse Ox 97 09/11/23 13:41 O2 Del Method Room Air 09/11/23 12:10 Course Vital Signs Vital signs: Vital Signs Temperature 97.7 F 09/11/23 12:10 Pulse Rate 101 H 09/11/23 12:10 Respiratory Rate 20 09/11/23 12:10 Blood Pressure 111/76 09/11/23 12:10 Pulse Oximetry 100 09/11/23 12:10 Oxygen Delivery Method Room Air 09/11/23 12:10 Temperature 97.7 F 09/11/23 12:10 Pulse Rate 93 H 09/11/23 13:30 Respiratory Rate 14 09/11/23 13:30 Blood Pressure 157/94 H 09/11/23 13:45 Pulse Oximetry 97 09/11/23 13:41 Oxygen Delivery Method Room Air 09/11/23 12:10 Medical Decision Making [facility] Narrative Medical decision making narrative: white blood cell count is minimally elevated at 11.1. No left shift is noted. Flexion electrolytes are normal. Urine creatinine are elevated just slightly above the patient's baseline at 51 & 2.2. Covid swab negative. Urine once again checked and culture is pending. Talked with the patient and family. The patient is not able to perform a ctivities of daily living at home. He is not eating and drinking appropriately. I have concerns he may not be taking his medicine as prescribed including his antibiotic. I talked to the patient's primary care provider. Dr. Walton will admit this patient for further evaluation, treatment and testing. He did receive normal saline IV fluid in the emergency department and talked with Dr. Walton about possibly adding another antibiotic. He will determine that when the patient gets to the floor. I expect urology would also be consulted since the patient is complaining of pain associated with the suprapubic catheter site. Medical Records Medical records reviewed: Yes I reviewed the patient's medical records Medical records narrative: I saw the patient last week and reviewed the urine culture result, as detailed above. Lab Data Lab results reviewed: Yes I reviewed the patient's lab results Labs: Lab Results 09/11/23 Range/Units 12:31 WBC 11.1 H (4.0-11.0) 10^3/uL RBC 3.63 L (4.70-6.10) 10^6/uL Hgb 11.5 L (14.0-18.0) g/dL Hct 35.5 L (42.0-54.0) % MCV 97.8 H (80.0-94.0) fL MCH 31.7 (25.9-34.0) pg MCHC 32.4 (29.9-35.2) g/dL RDW 13.4 (11.0-15.0) % Plt Count 230 (150-450) 10^3/uL MPV 9.6 (9.5-13.5) fL Neut % (Auto) 71.9 (43.0-75.0) % Lymph % (Auto) 19.3 L (20.5-60.0) % [place] % (Auto) 4.1 (1.7-12.0) % Eos % (Auto) 3.8 (0.9-7.0) % Baso % (Auto) 0.5 (0.2-2.0) % Neut # (Auto) 8.0 H (1.4-6.5) 10^3/uL Lymph # (Auto) 2.1 (1.2-3.8) 10^3/uL [place] # (Auto) 0.5 (0.3-0.8) 10^3/uL Eos # (Auto) 0.4 (0.0-0.7) 10^3/uL Baso # (Auto) 0.1 (0.0-0.1) 10^3/uL Abs Immat Gran (auto) 0.04 H (0.00-0.03) 10^3/uL Imm/Tot Granulo (auto) 0.4 (0.0-0.5) % D-Dimer 2.27 H* (<=0.59) mg/L FEU Sodium 137 (136-145) mmol/L Potassium 4.7 (3.5-5.1) mmol/L Chloride 102 (98-107) mmol/L Carbon Dioxide 26.9 (21.0-32.0) mmol/L Anion Gap 12.8 BUN 51.0 H (7.0-18.0) mg/dL Creatinine 2.20 H (0.70-1.30) mg/dL Est GFR ( Amer) 35 L (>=60) Est GFR (Non-Af Amer) 29 L (>=60) BUN/Creatinine Ratio 23.2 Glucose 244 H (74-106) mg/dL Calcium 9.4 (8.5-10.1) mg/dL Total Bilirubin 0.2 (0.2-1.0) mg/dL AST 19 (15-37) U/L ALT 25 (16-63) U/L Alkaline Phosphatase 56 (46-116) U/L Troponin I High Sens 9.6 (4.0-76.1) pg/mL NT-Pro-B Natriuret Pep 1169.0 (<=1800.0) pg/mL Total Protein 7.2 (6.4-8.2) g/dL Albumin 2.9 L (3.4-5.0) g/dL Globulin 4.3 g/dL Albumin/Globulin Ratio 0.7 ECG Data Attestation: I personally reviewed and interpreted this ECG as follows: Interpretation: EKG interpretation: Emergency Department physician interpretation. Wide complex tachycardia at 104bpm. Non-specific ST-T changes with widened QRS complex & pacer spikes. Discharge Plan Discharge Chief Complaint: Arrhythmia/Palpitations Clinical Impression: Acute renal injury, Adult failure to thrive, Dehydration Patient Disposition: Admitted As Inpatient Time of Disposition Decision: 14:08
[2023-09-11 14:00] LABS: SARS-CoV-2 Ag NEGATIVE (NEGATIVE)
[2023-09-11 14:14] LABS: Bilirubin Urine NEGATIVE (NEGATIVE); Blood Urine LARGE (NEGATIVE); Color Urine LT. YELLOW (YELLOW); Glucose Urine UA 250 mg/dL (NEGATIVE); Ketones Urine NEGATIVE (NEGATIVE); Leukocyte Esterase Urine TRACE (NEGATIVE); Nitrite Urine NEGATIVE (NEGATIVE); Protein Urine 100 mg/dL (NEG/TRACE); Specific Gravity Urine 1.015 (1.005-1.025); Urine Microscopic Indicated YES; Urobilinogen Urine 0.2 EU/dL (0.2-1.0); pH Urine 6.5 (5.0-9.0)
[2023-09-11 14:20] LABS: Bacteria Urine NONE SEEN #/HPF (NONE SEEN); Cast Seen? NONE SEEN #/LPF (NONE SEEN); Clarity Urine SLIGHTLY CLOUDY (CLEAR); Crystals Seen? None Seen #/HPF (None Seen); Mucus Urine NONE SEEN (NONE SEEN); Squamous Epithelial Cell Urine NONE SEEN #/LPF (NONE/RARE); Urine Culture Indicated NO; WBC Urine 0-2 #/HPF (NONE SEEN)
--- NOTE | 2023-09-11 15:00 | P.HP_ITS ---
H&P: HPI History of Present Illness Chief complaint: FAST HEART RATE Narrative: Patient was seen and evaluated in the office. In office very difficult to ambulate secondary to weakness. Tachycardia in the 120s. Not eating well recently. Recommended transfer to ER for further evaluation. In ER found to have significant dehydration. Elevation has been in creatinine from his baseline. Leukocytosis as well. Recent diagnosis of acute UTI. Patient was admitted for workup and treatment of same. That being failed outpatient treatment of acute UTI secondary to suprapubic catheter placement complicated by diabetes Review of Systems ROS Status of ROS 10 or more systems reviewed and unremarkable except as noted in history and below [facility] Medical History (Updated 09/12/23 @ 00:00 by ) Abnormal TRUS (transrectal ultrasound), prostate ?R93.89 - Abnormal findings on diagnostic imaging of other specified body structures (ICD-10) Acute renal injury ?N17.9 - Acute kidney failure, unspecified (ICD-10) Acute UTI ?N39.0 - Urinary tract infection, site not specified (ICD-10) Amputation toe ?S98.139A - Complete traumatic amputation of one unspecified lesser toe, initial encounter (ICD-10) Anemia ?D64.9 - Anemia, unspecified (ICD-10) Arthritis ?M19.90 - Unspecified osteoarthritis, unspecified site (ICD-10) Asthma ?J45.909 - Unspecified asthma, uncomplicated (ICD-10) Atrial fibrillation ?I48.91 - Unspecified atrial fibrillation (ICD-10) Diabetes ?E11.9 - Type 2 diabetes mellitus without complications (ICD-10) Elevated PSA ?R97.20 - Elevated prostate specific antigen [PSA] (ICD-10) Glucosuria ?R81 - Glycosuria (ICD-10) H/O esophageal reflux ?Z87.19 - Personal history of other diseases of the digestive system (ICD-10) History of blood transfusion ?Z92.89 - Personal history of other medical treatment (ICD-10) Hydroureteronephrosis ?N13.30 - Unspecified hydronephrosis (ICD-10) Kidney stones ?N20.0 - Calculus of kidney (ICD-10) Mixed incontinence ?N39.46 - Mixed incontinence (ICD-10) Pacemaker ?Z95.0 - Presence of cardiac pacemaker (ICD-10) Pneumonia ?J18.9 - Pneumonia, unspecified organism (ICD-10) Prostate cancer ?C61 - Malignant neoplasm of prostate (ICD-10) Seasonal allergic rhinitis ?J30.2 - Other seasonal allergic rhinitis (ICD-10) Tremor ?R25.1 - Tremor, unspecified (ICD-10) Ulcer of gastric fundus ?K25.9 - Gastric ulcer, unspecified as acute or chronic, without hemorrhage or perforation (ICD-10) Urinary tract infection ?N39.0 - Urinary tract infection, site not specified (ICD-10) Surgical History (Updated 08/30/23 @ 11:53 by Gracie Cabral) H/O cataract extraction ?Z98.49 - Cataract extraction status, unspecified eye (ICD-10) H/O hand surgery ?Z98.890 - Other specified postprocedural states (ICD-10) H/O lithotripsy ?Z98.890 - Other specified postprocedural states (ICD-10) H/O prostate biopsy ?Z98.890 - Other specified postprocedural states (ICD-10) H/O radical prostatectomy ?Z90.79 - Acquired absence of other genital organ(s) (ICD-10) H/O wrist surgery ?Z98.890 - Other specified postprocedural states (ICD-10) History of arthroscopy of knee ?Z98.890 - Other specified postprocedural states (ICD-10) History of colonoscopy ?Z98.890 - Other specified postprocedural states (ICD-10) History of ear surgery ?Z98.890 - Other specified postprocedural states (ICD-10) History of esophagogastroduodenoscopy ?Z98.890 - Other specified postprocedural states (ICD-10) Family History (Updated 08/21/23 @ 10:37 by Le Mata NP) Other Alcoholism Family history of lung cancer Social History (Updated 09/11/23 @ 14:56 by Renetta Brewster) Within the past year, how often did you have a drink containing alcohol: never Score interpretation: A score less than 4 is consistent with normal alcohol consumption. Smoking status: Never smoker Non-prescribed substance use: denies use Highest level of school completed/degree received: high school graduate Are you now , , , , never or living with a partner: living with partner Do you think of yourself as: straight/heterosexual Gender Identity: male Meds Home Medications and Allergies Home Medications Medication Instructions Recorded Confirmed Type alprazolam 1 mg tablet 2 mg PO TID 08/21/23 09/11/23 History calcium carbonate 600 mg-vitamin 2 tab PO DAILY 08/21/23 09/11/23 History D3 5 mcg (200 unit) tablet cetirizine 10 mg tablet (All Day 10 mg PO .lunch PRN allergy 08/21/23 09/11/23 History Allergy (cetirizine)) symptoms cilostazol 50 mg tablet 50 mg PO BID 08/21/23 09/11/23 History diphenhydramine-acetaminophen 2 tab PO QPM 08/21/23 09/11/23 History diphenoxylate-atropine 2.5 1 tab PO Q6H PRN diarrhea 08/21/23 09/11/23 History mg-0.025 mg tablet (Lomotil) ferrous sulfate 325 mg (65 mg 325 mg PO BID 08/21/23 09/11/23 History iron) tablet (Feosol) fluticasone propionate 50 2 spray intranasal Q12H 08/21/23 09/11/23 History mcg/actuation nasal spray,suspension gabapentin 100 mg capsule 100 mg PO TID 08/21/23 09/11/23 History insulin glargine 100 unit/mL (3 25 unit subcut DAILY 08/21/23 09/11/23 History mL) subcutaneous pen (Lantus Solostar U-100 Insulin) insulin lispro 100 unit/mL 1 sliding scale dose subcut TID 08/21/23 09/11/23 History subcutaneous pen (Humalog KwikPen (U-100) Insulin) lovastatin 40 mg tablet 80 mg PO DAILY 08/21/23 09/11/23 History magnesium 250 mg tablet 250 mg PO BID 08/21/23 09/11/23 History metformin 500 mg tablet,extended 1,000 mg PO DAILY 08/21/23 09/11/23 History release 24 hr metoprolol succinate 25 mg 25 mg PO DAILY 08/21/23 09/11/23 History tablet,extended release 24 hr midodrine 10 mg tablet 10 mg PO BID 08/21/23 09/11/23 History mirtazapine 45 mg tablet 45 mg PO QPM 08/21/23 09/11/23 History montelukast 10 mg tablet 10 mg PO DAILY 08/21/23 09/11/23 History multivitamin (Daily Multi-Vitamin 1 tab PO DAILY 08/21/23 09/11/23 History tablet) omeprazole 40 mg capsule,delayed 40 mg PO DAILY 08/21/23 09/11/23 History release sodium zirconium cyclosilicate 5 5 g PO .4 times weekly 08/21/23 09/11/23 History gram oral powder packet (Lokelma) citalopram 20 mg tablet (Celexa) 20 mg PO DAILY 09/06/23 09/11/23 History ciprofloxacin HCl 500 mg tablet 500 mg PO BID #20 tabs 09/08/23 09/11/23 Rx (Cipro) aspirin 325 mg tablet,delayed 325 mg PO DAILY 09/11/23 09/11/23 History release colesevelam 625 mg tablet 1,250 mg PO DAILY 09/11/23 09/11/23 History furosemide 20 mg tablet 20 mg PO DAILY PRN edema 09/11/23 09/11/23 History tramadol 100 mg tablet 100 mg PO Q6H PRN pain 09/11/23 09/11/23 History Allergies Allergy/AdvReac Type Severity Reaction Status Date / Time amoxicillin [From Augmentin] Allergy Diarrhea Verified 08/21/23 10:27 canagliflozin [From Invokana] Allergy Unknown Verified 08/21/23 10:27 clavulanic acid Allergy Diarrhea Verified 08/21/23 10:27 [From Augmentin] hydroxyzine Allergy Anxiety Verified 08/21/23 10:27 levofloxacin Allergy joint pain Verified 08/21/23 10:27 mirabegron [From Myrbetriq] Allergy Unknown Verified 08/21/23 10:27 pioglitazone [From Actos] Allergy Abdominal Verified 08/21/23 10:27 Pain Exam Constitutional Vital Signs, click to edit/add: Last Vital Signs Temp 97.7 F 09/12/23 04:08 Pulse 93 H 09/12/23 07:59 Resp 16 09/12/23 04:08 BP 111/71 09/12/23 04:08 Pulse Ox 93 L 09/12/23 04:17 O2 Del Method Room Air 09/12/23 04:17 Documenting provider has reviewed patient's vital signs: yes Common normals: apparent distress General appearance: in distress, lethargic and frail appearing [facility] Common normals: oral mucous membranes not moist (Very dry mucous membranes) Respiratory Common normals: normal respiratory effort Cardio Common normals: regular rhythm Rate: tachycardic GI Common normals: Normal to inspection, nondistended, normoactive bowel sounds present (Prepubic catheter stitch in place.) Neuro Common normals: oriented x3; gait abnormal (EXTR weakness with severe difficulty ambulating) Results Labs Labs: Short CBC 09/11/23 09/12/23 Range/Units 12:31 05:04 WBC 11.1 H 8.0 (4.0-11.0) 10^3/uL Hgb 11.5 L 9.9 L (14.0-18.0) g/dL Hct 35.5 L 31.2 L (42.0-54.0) % Plt Count 230 207 (150-450) 10^3/uL BMP 09/11/23 09/12/23 12:31 05:04 Sodium 137 141 Potassium 4.7 4.4 Chloride 102 107 Carbon Dioxide 26.9 26.4 BUN 51.0 H 41.0 H Creatinine 2.20 H 1.82 H Glucose 244 H 92 Calcium 9.4 8.8 Liver Function 09/11/23 09/12/23 Range/Units 12:31 05:04 Total Bilirubin 0.2 0.2 (0.2-1.0) mg/dL AST 19 17 (15-37) U/L ALT 25 23 (16-63) U/L Alkaline Phosphatase 56 47 (46-116) U/L Albumin 2.9 L 2.4 L (3.4-5.0) g/dL Urine 09/11/23 Range/Units 14:10 Urine Color Lt. yellow (YELLOW) Urine Clarity Slightly cloudy A (CLEAR) Urine pH 6.5 (5.0-9.0) Ur Specific [place] 1.015 (1.005-1.025) Urine Protein 100 A (NEG/TRACE) mg/dL Urine Glucose (UA) 250 A (NEGATIVE) mg/dL Assessment and Plan Assessment and Plan (1) Dehydration: (2) Acute UTI: Plan Sinus tachycardia, uncontrolled hypertension, leukocytosis, acute kidney injury secondary to acute UTI with failed outpatient treatment. Significant dehydration. This is resulted in sepsis. Gentle IV hydration. History of heart failure. IV antibiotics based on previous urine culture. Will repeat urine culture as well. Blood cultures pending. Acute kidney injury-secondary to dehydration-secondary to above-continue with IV hydration. Diabetes mellitus complicating the above picture. Insulin sliding scale. Suprapubic catheter placed secondary to obstruction-suprapubic catheter likely because of the infection. Diabetic peripheral neuropathy continue with home medication Hypomagnesemia check on levels Orthostatic hypotension continue with medication Depression with anxiety-continue with medication With recurrence of his symptoms patient could benefit from a rehabilitation stay. Will see how the next 3 to 4 days goes. Likely that length of time to resolve this infection. Unable to improve it as an outpatient.
[2023-09-11 16:04] LABS: SARS-CoV-2 NAA NOT DETECTED (NOT DETECTE)
[2023-09-11 17:47] LABS: Glucometer 153 mg/dL (74-106)
[2023-09-11] MEDS: 0.9 % SODIUM CHLORIDE 1,000 ML 1000 ML IV (18:46)
--- NOTE | 2023-09-11 19:35 | PC.NURSE ---
dressing changed to suprapubic catheter. sutures intact. small amount of drainage noted. last dressing change was dated for 09/08
[2023-09-11 20:28] LABS: Glucometer 212 mg/dL (74-106)
[2023-09-11] MEDS: LACTATED RINGER'S SOLUTION 1,000 ML 100 ML IV (21:39)
[2023-09-11] MEDS: INSULIN ASPART 300 UNIT/3 ML PEN SUBQ (21:40)
[2023-09-11] MEDS: L. ACIDOPHILUS/L.BULGARICUS 1 PACKET GRAN.PACK PO (21:40)
[2023-09-11] MEDS: FLUTICASONE PROPIONATE 50 MCG NASAL SPRAY 2 SPRAY NS (21:40)
[2023-09-11] MEDS: GLUCERNA 1.5 CAL 237 ML LIQUID PO (21:40)
[2023-09-11] MEDS: PROSTAT 15 GM PROTEIN/100 CAL 30 ML LIQUID PACKET PO (21:41)
[2023-09-11] MEDS: MAGNESIUM OXIDE 400 MG TABLET PO (21:42)
[2023-09-11] MEDS: MIRTAZAPINE 15 MG TABLET 45 MG PO (21:42)
[2023-09-11] MEDS: CILOSTAZOL 100 MG TABLET 50 MG PO (21:42)
[2023-09-11] MEDS: LEVOFLOXACIN IN DEXTROSE 5 % 750 MG/150 ML IV.SOLN 100 MG IV (21:42)
[2023-09-11] MEDS: FERROUS SULFATE 325 MG TABLET PO (21:42)
[2023-09-11] MEDS: DIPHENHYDRAMINE HCL 25 MG CAPSULE 50 MG PO (21:43)
[2023-09-11] MEDS: GABAPENTIN 100 MG CAPSULE PO (21:43)
[2023-09-11] MEDS: ACETAMINOPHEN 325 MG TABLET 650 MG PO (21:43)
[2023-09-11] MEDS: ALPRAZOLAM 1 MG TABLET 2 MG PO (21:49)
[2023-09-12] VITALS (18 sets, daily range): BP systolic 111–155; BP diastolic 71–92; PULSE 92–106; RESP 16–20; TEMP 36.5–36.8; O2SAT 90–94; BMI 25.5
[2023-09-12] MEDS: MIDODRINE HCL 5 MG TABLET 10 MG PO (05:33)
[2023-09-12] MEDS: GABAPENTIN 100 MG CAPSULE PO ×3 (05:33→21:18)
[2023-09-12] MEDS: OMEPRAZOLE 40 MG CAPSULE.DR PO (05:34)
[2023-09-12] MEDS: ALPRAZOLAM 1 MG TABLET 2 MG PO ×3 (05:34→21:17)
[2023-09-12 05:39] LABS: Basophils Percent Auto 0.5 % (0.2-2.0); Eosinophils Absolute Auto 0.6 10^3/uL (0.0-0.7); Eosinophils Percent Auto 7.6 % (0.9-7.0); Hematocrit 31.2 % (42.0-54.0); Hemoglobin 9.9 g/dL (14.0-18.0); Immature Granulocytes Abs Auto 0.02 10^3/uL (0.00-0.03); Immature Granulocytes Pct Auto 0.3 % (0.0-0.5); Lymphocytes Absolute Auto 2.6 10^3/uL (1.2-3.8); Lymphocytes Percent Auto 32.2 % (20.5-60.0); Mean Corpuscular HGB Conc 31.7 g/dL (29.9-35.2); Mean Corpuscular Hemoglobin 31.3 pg (25.9-34.0); Mean Corpuscular Volume 98.7 fL (80.0-94.0); Mean Platelet Volume 9.7 fL (9.5-13.5); Monocytes Absolute Auto 0.6 10^3/uL (0.3-0.8); Monocytes Percent Auto 6.9 % (1.7-12.0); Neutrophils Absolute Auto 4.2 10^3/uL (1.4-6.5); Neutrophils Percent Auto 52.5 % (43.0-75.0); Platelet Count 207 10^3/uL (150-450); Red Blood Count 3.16 10^6/uL (4.70-6.10); Red Cell Distribution Width 13.4 % (11.0-15.0)
[2023-09-12 06:16] LABS: Alanine Aminotransferase 23 U/L (16-63); Albumin Globulin Ratio 0.6; Albumin Level 2.4 g/dL (3.4-5.0); Alkaline Phosphatase 47 U/L (46-116); Aspartate Amino Transferase 17 U/L (15-37); BUN Creatinine Ratio 22.5; Bilirubin Total 0.2 mg/dL (0.2-1.0); Calcium 8.8 mg/dL (8.5-10.1); Carbon Dioxide 26.4 mmol/L (21.0-32.0); Chloride 107 mmol/L (98-107); Estimated GFR (African America 43 (>=60); Estimated GFR (Non-African Ame 36 (>=60); Globulin 3.8 g/dL; Glucose 92 mg/dL (74-106); Magnesium 1.6 mg/dL (1.8-2.4); Potassium 4.4 mmol/L (3.5-5.1); Sodium 141 mmol/L (136-145); Total Protein 6.2 g/dL (6.4-8.2)
--- NOTE | 2023-09-12 08:56 | P.PN_ITS ---
Exam Constitutional Vital Signs, click to edit/add: Last Vital Signs Temp 97.7 F 09/12/23 04:08 Pulse 93 H 09/12/23 07:59 Resp 16 09/12/23 04:08 BP 111/71 09/12/23 04:08 Pulse Ox 93 L 09/12/23 04:17 O2 Del Method Room Air 09/12/23 04:17 Progress Note: Objective Labs Labs: Short CBC 09/11/23 09/12/23 Range/Units 12:31 05:04 WBC 11.1 H 8.0 (4.0-11.0) 10^3/uL Hgb 11.5 L 9.9 L (14.0-18.0) g/dL Hct 35.5 L 31.2 L (42.0-54.0) % Plt Count 230 207 (150-450) 10^3/uL BMP 09/11/23 09/12/23 12:31 05:04 Sodium 137 141 Potassium 4.7 4.4 Chloride 102 107 Carbon Dioxide 26.9 26.4 BUN 51.0 H 41.0 H Creatinine 2.20 H 1.82 H Glucose 244 H 92 Calcium 9.4 8.8 Liver Function 09/11/23 09/12/23 Range/Units 12:31 05:04 Total Bilirubin 0.2 0.2 (0.2-1.0) mg/dL AST 19 17 (15-37) U/L ALT 25 23 (16-63) U/L Alkaline Phosphatase 56 47 (46-116) U/L Albumin 2.9 L 2.4 L (3.4-5.0) g/dL Urine 09/11/23 Range/Units 14:10 Urine Color Lt. yellow (YELLOW) Urine Clarity Slightly cloudy A (CLEAR) Urine pH 6.5 (5.0-9.0) Ur Specific [place] 1.015 (1.005-1.025) Urine Protein 100 A (NEG/TRACE) mg/dL Urine Glucose (UA) 250 A (NEGATIVE) mg/dL Progress Note: A&P Assessment and Plan (1) Acute UTI: (2) Dehydration: Plan Sinus tachycardia, uncontrolled hypertension, leukocytosis, acute kidney injury secondary to acute UTI with failed outpatient treatment. Significant dehydration. This is resulted in sepsis (tachycardica, leukocytosis, known source of infection). Cut back on fluids somewhat. Check in cultures later today, likely not return until tomorrow. Acute kidney injury-secondary to dehydration-improved Diabetes mellitus complicating the above picture. Insulin sliding scale. Continue to adjust as necessary Suprapubic catheter placed secondary to obstruction-suprapubic catheter the cause of the infection. Diabetic peripheral neuropathy continue with home medication Iron deficiency anemia secondary to poor p.o. intake-continue to monitor daily. Check occult blood if hemoglobin drops Hypomagnesemia check on levels Orthostatic hypotension continue with medication Depression with anxiety-continue with medication With recurrence of his symptoms patient could benefit from a rehabilitation stay. Will see how the next 3 to 4 days goes. Likely that length of time to resolve this infection. Unable to improve it as an outpatient.
--- NOTE | 2023-09-12 09:20 | CM.NOTE ---
Rounds made with Dr. Walton. No plan for discharge today.
--- NOTE | 2023-09-12 09:21 | CM.NOTE ---
Important Message from Medicare reviewed with Ester [id number]. Signed copy to Mr. Ferreira and copy to chart.
[2023-09-12] MEDS: LACTATED RINGER'S SOLUTION 1,000 ML 60 ML IV (10:10)
[2023-09-12] MEDS: POLYETHYLENE GLYCOL 3350 17 GM POWDER PACKET PO (10:11)
[2023-09-12] MEDS: PROSTAT 15 GM PROTEIN/100 CAL 30 ML LIQUID PACKET PO ×2 (10:11→21:19)
[2023-09-12] MEDS: GLUCERNA 1.5 CAL 237 ML LIQUID PO (10:11)
[2023-09-12] MEDS: SODIUM ZIRCONIUM CYCLOSILICATE 10 GM POWD.PACK 5 GM PO (10:12)
[2023-09-12] MEDS: FLUTICASONE PROPIONATE 50 MCG NASAL SPRAY 2 SPRAY NS ×2 (10:14→21:19)
[2023-09-12] MEDS: MONTELUKAST SODIUM 10 MG TABLET PO (10:15)
[2023-09-12] MEDS: METOPROLOL SUCCINATE 25 MG TAB.ER.24H PO (10:15)
[2023-09-12] MEDS: MULTIVITAMIN TABLET 1 TAB PO (10:15)
[2023-09-12] MEDS: METFORMIN HCL 500 MG TAB.ER.24H 1000 MG PO (10:16)
[2023-09-12] MEDS: MAGNESIUM OXIDE 400 MG TABLET PO ×2 (10:16→21:17)
[2023-09-12] MEDS: FERROUS SULFATE 325 MG TABLET PO ×2 (10:16→21:18)
[2023-09-12] MEDS: CALCIUM CARBONATE 600 MG/VITAMIN D3 400 IU TABLET 2 TAB PO (10:17)
[2023-09-12] MEDS: CILOSTAZOL 100 MG TABLET 50 MG PO ×2 (10:17→21:17)
[2023-09-12] MEDS: ASPIRIN 325 MG TABLET.DR PO (10:18)
[2023-09-12] MEDS: ATORVASTATIN CALCIUM 20 MG TABLET PO (10:18)
[2023-09-12] MEDS: CITALOPRAM HYDROBROMIDE 20 MG TABLET PO (10:18)
[2023-09-12] MEDS: INSULIN DETEMIR 300 UNIT/3 ML INSULN.PEN 25 UNIT SUBQ (10:26)
[2023-09-12 11:09] LABS: Glucometer 248 mg/dL (74-106)
[2023-09-12] MEDS: INSULIN ASPART 300 UNIT/3 ML PEN SUBQ ×3 (12:31→21:20)
--- NOTE | 2023-09-12 14:29 | PC.NURSE ---
sutures x 3 removed from suprapubic catheter insertion site. Area around site reddened with scant purulent drng noted prior to removal of sutures. Drain sponge appiled around catheter, with 2x2 applied at suture removal site due to small bleeding noted. pt tolerates well with no complaints of discomfort
--- NOTE | 2023-09-12 15:30 | CM.NOTE ---
Discussed with pt regarding PT recommendations for skilled therapy. Pt in agreement and requests [facility]. Spoke with Hu at [facility] and they are able to accept pt. Talked with pt and daughter to update.
--- NOTE | 2023-09-12 15:36 | CM.NOTE ---
Clinical has been faxed to [facility].
[2023-09-12 16:23] LABS: Glucometer 202 mg/dL (74-106)
[2023-09-12 18:43] LABS: Occult Blood Negative
[2023-09-12 20:12] LABS: Glucometer 148 mg/dL (74-106)
[2023-09-12] MEDS: MIRTAZAPINE 15 MG TABLET 45 MG PO (21:17)
[2023-09-12] MEDS: L. ACIDOPHILUS/L.BULGARICUS 1 PACKET GRAN.PACK PO (21:17)
[2023-09-12] MEDS: DIPHENHYDRAMINE HCL 25 MG CAPSULE 50 MG PO (21:18)
[2023-09-12] MEDS: ACETAMINOPHEN 325 MG TABLET 650 MG PO (21:18)
[2023-09-13] VITALS (17 sets, daily range): BP systolic 125–147; BP diastolic 71–82; PULSE 79–105; RESP 16–18; TEMP 36.3–36.6; O2SAT 90–94
[2023-09-13] MEDS: LACTATED RINGER'S SOLUTION 1,000 ML 60 ML IV (01:54)
[2023-09-13 05:11] LABS: Basophils Absolute Auto 0.1 10^3/uL (0.0-0.1); Basophils Percent Auto 0.8 % (0.2-2.0); Eosinophils Absolute Auto 0.7 10^3/uL (0.0-0.7); Hemoglobin 10.2 g/dL (14.0-18.0); Immature Granulocytes Abs Auto 0.03 10^3/uL (0.00-0.03); Immature Granulocytes Pct Auto 0.4 % (0.0-0.5); Lymphocytes Absolute Auto 2.7 10^3/uL (1.2-3.8); Lymphocytes Percent Auto 33.3 % (20.5-60.0); Mean Corpuscular HGB Conc 31.9 g/dL (29.9-35.2); Mean Corpuscular Hemoglobin 31.8 pg (25.9-34.0); Mean Corpuscular Volume 99.7 fL (80.0-94.0); Mean Platelet Volume 9.7 fL (9.5-13.5); Monocytes Absolute Auto 0.6 10^3/uL (0.3-0.8); Monocytes Percent Auto 7.1 % (1.7-12.0); Neutrophils Percent Auto 49.4 % (43.0-75.0); Platelet Count 200 10^3/uL (150-450); Red Blood Count 3.21 10^6/uL (4.70-6.10); Red Cell Distribution Width 13.4 % (11.0-15.0)
[2023-09-13 05:42] LABS: Alanine Aminotransferase 22 U/L (16-63); Albumin Globulin Ratio 0.7; Albumin Level 2.5 g/dL (3.4-5.0); Alkaline Phosphatase 48 U/L (46-116); Anion Gap 8.9; Aspartate Amino Transferase 20 U/L (15-37); BUN Creatinine Ratio 24.3; Bilirubin Total 0.2 mg/dL (0.2-1.0); Calcium 9.5 mg/dL (8.5-10.1); Chloride 108 mmol/L (98-107); Estimated GFR (African America 45 (>=60); Estimated GFR (Non-African Ame 37 (>=60); Globulin 3.8 g/dL; Glucose 140 mg/dL (74-106); Magnesium 1.8 mg/dL (1.8-2.4); Potassium 4.9 mmol/L (3.5-5.1); Sodium 141 mmol/L (136-145); Total Protein 6.3 g/dL (6.4-8.2)
[2023-09-13] MEDS: OMEPRAZOLE 40 MG CAPSULE.DR PO (05:51)
[2023-09-13] MEDS: GABAPENTIN 100 MG CAPSULE PO ×3 (05:51→21:43)
[2023-09-13] MEDS: ALPRAZOLAM 1 MG TABLET 2 MG PO ×3 (05:51→21:42)
[2023-09-13] MEDS: ASPIRIN 325 MG TABLET.DR PO (09:35)
[2023-09-13] MEDS: MONTELUKAST SODIUM 10 MG TABLET PO (09:35)
[2023-09-13] MEDS: CILOSTAZOL 100 MG TABLET 50 MG PO ×2 (09:35→20:32)
[2023-09-13] MEDS: PROSTAT 15 GM PROTEIN/100 CAL 30 ML LIQUID PACKET PO ×2 (09:35→20:33)
[2023-09-13] MEDS: CALCIUM CARBONATE 600 MG/VITAMIN D3 400 IU TABLET 2 TAB PO (09:35)
[2023-09-13] MEDS: POLYETHYLENE GLYCOL 3350 17 GM POWDER PACKET PO (09:35)
[2023-09-13] MEDS: GLUCERNA 1.5 CAL 237 ML LIQUID PO (09:36)
[2023-09-13] MEDS: CITALOPRAM HYDROBROMIDE 20 MG TABLET PO (09:36)
[2023-09-13] MEDS: MULTIVITAMIN TABLET 1 TAB PO (09:36)
[2023-09-13] MEDS: METFORMIN HCL 500 MG TAB.ER.24H 1000 MG PO (09:36)
[2023-09-13] MEDS: METOPROLOL SUCCINATE 25 MG TAB.ER.24H PO (09:36)
[2023-09-13] MEDS: MAGNESIUM OXIDE 400 MG TABLET PO ×2 (09:36→20:32)
[2023-09-13] MEDS: ATORVASTATIN CALCIUM 20 MG TABLET PO (09:36)
[2023-09-13] MEDS: FERROUS SULFATE 325 MG TABLET PO ×2 (09:36→20:33)
[2023-09-13] MEDS: L. ACIDOPHILUS/L.BULGARICUS 1 PACKET GRAN.PACK PO ×2 (09:36→20:32)
[2023-09-13] MEDS: INSULIN DETEMIR 300 UNIT/3 ML INSULN.PEN 25 UNIT SUBQ (09:37)
[2023-09-13] MEDS: FLUTICASONE PROPIONATE 50 MCG NASAL SPRAY 2 SPRAY NS ×2 (09:37→20:33)
[2023-09-13 11:11] LABS: Glucometer 281 mg/dL (74-106)
--- NOTE | 2023-09-13 11:13 | P.PN_ITS ---
Progress Note: Subjective Subjective Interval history: In chair eating breakfast. Looks improved from previous day Exam Constitutional Vital Signs, click to edit/add: Last Vital Signs Temp 97.5 F L 09/13/23 04:39 Pulse 105 H 09/13/23 09:56 Resp 16 09/13/23 04:39 BP 140/75 09/13/23 05:31 Pulse Ox 90 L 09/13/23 05:37 O2 Del Method Room Air 09/13/23 05:37 Documenting provider has reviewed patient's vital signs: yes Common normals: apparent distress General appearance: in distress, lethargic and frail appearing [facility] Common normals: oral mucous membranes not moist (Very dry mucous membranes) Respiratory Common normals: normal respiratory effort Cardio Common normals: regular rhythm Rate: tachycardic GI Common normals: Normal to inspection, nondistended, normoactive bowel sounds present (Prepubic catheter stitch in place.) Neuro Common normals: oriented x3; gait abnormal (EXTR weakness with severe difficulty ambulating) Progress Note: Objective Labs Labs: Short CBC 09/13/23 Range/Units 04:40 WBC 8.0 (4.0-11.0) 10^3/uL Hgb 10.2 L (14.0-18.0) g/dL Hct 32.0 L (42.0-54.0) % Plt Count 200 (150-450) 10^3/uL BMP 09/13/23 04:40 Sodium 141 Potassium 4.9 Chloride 108 H Carbon Dioxide 29.0 BUN 43.0 H Creatinine 1.77 H Glucose 140 H Calcium 9.5 Liver Function 09/13/23 Range/Units 04:40 Total Bilirubin 0.2 (0.2-1.0) mg/dL AST 20 (15-37) U/L ALT 22 (16-63) U/L Alkaline Phosphatase 48 (46-116) U/L Albumin 2.5 L (3.4-5.0) g/dL Progress Note: A&P Assessment and Plan (1) Acute UTI: (2) Dehydration: Plan On admission with sinus tachycardia, uncontrolled hypertension, leukocytosis, acute kidney injury secondary to acute UTI with failed outpatient treatment. Significant dehydration. This is resulted in sepsis (tachycardica, leukocytosis, known source of infection). Continue with current antibiotics based on sensitivities. Saline lock is his increased p.o. intake Acute kidney injury-secondary to dehydration-improved Diabetes mellitus complicating the above picture. Insulin sliding scale. Continue to adjust as necessary Suprapubic catheter placed secondary to obstruction-suprapubic catheter the cause of the infection. Diabetic peripheral neuropathy continue with home medication Iron deficiency anemia secondary to poor p.o. intake-continue to monitor daily. Check occult blood if hemoglobin drops negative occult blood Hypomagnesemia-stable Orthostatic hypotension continue with medication Depression with anxiety-continue with medication With recurrence of his symptoms patient could benefit from a rehabilitation stay. Will see how the next 3 to 4 days goes. Likely that length of time to resolve this infection. Unable to improve it as an outpatient.
[2023-09-13] MEDS: INSULIN ASPART 300 UNIT/3 ML PEN SUBQ ×3 (12:15→21:45)
[2023-09-13 16:47] LABS: Glucometer 213 mg/dL (74-106)
[2023-09-13] MEDS: LEVOFLOXACIN IN DEXTROSE 5 % 750 MG/150 ML IV.SOLN 100 MG IV (20:34)
[2023-09-13 21:40] LABS: Glucometer 225 mg/dL (74-106)
[2023-09-13] MEDS: DIPHENHYDRAMINE HCL 25 MG CAPSULE 50 MG PO (21:42)
[2023-09-13] MEDS: ACETAMINOPHEN 325 MG TABLET 650 MG PO (21:43)
[2023-09-13] MEDS: MIRTAZAPINE 15 MG TABLET 45 MG PO (21:43)
[2023-09-14] VITALS (12 sets, daily range): BP systolic 148; BP diastolic 80; PULSE 82–101; RESP 16–18; TEMP 36.8; O2SAT 92
[2023-09-14 05:11] LABS: Basophils Absolute Auto 0.1 10^3/uL (0.0-0.1); Basophils Percent Auto 0.6 % (0.2-2.0); Eosinophils Absolute Auto 0.8 10^3/uL (0.0-0.7); Eosinophils Percent Auto 7.8 % (0.9-7.0); Hematocrit 34.1 % (42.0-54.0); Hemoglobin 10.7 g/dL (14.0-18.0); Immature Granulocytes Abs Auto 0.04 10^3/uL (0.00-0.03); Immature Granulocytes Pct Auto 0.4 % (0.0-0.5); Lymphocytes Absolute Auto 2.3 10^3/uL (1.2-3.8); Lymphocytes Percent Auto 23.5 % (20.5-60.0); Mean Corpuscular HGB Conc 31.4 g/dL (29.9-35.2); Mean Corpuscular Hemoglobin 31.5 pg (25.9-34.0); Mean Corpuscular Volume 100.3 fL (80.0-94.0); Mean Platelet Volume 9.7 fL (9.5-13.5); Monocytes Absolute Auto 0.7 10^3/uL (0.3-0.8); Neutrophils Absolute Auto 5.9 10^3/uL (1.4-6.5); Neutrophils Percent Auto 60.7 % (43.0-75.0); Platelet Count 207 10^3/uL (150-450); Red Cell Distribution Width 13.4 % (11.0-15.0); White Blood Count 9.7 10^3/uL (4.0-11.0)
[2023-09-14 05:37] LABS: Alanine Aminotransferase 25 U/L (16-63); Albumin Level 2.6 g/dL (3.4-5.0); Alkaline Phosphatase 50 U/L (46-116); Anion Gap 10.8; Aspartate Amino Transferase 19 U/L (15-37); BUN Creatinine Ratio 26.5; Bilirubin Total 0.1 mg/dL (0.2-1.0); Calcium 9.6 mg/dL (8.5-10.1); Carbon Dioxide 30.2 mmol/L (21.0-32.0); Chloride 105 mmol/L (98-107); Estimated GFR (African America 47 (>=60); Estimated GFR (Non-African Ame 38 (>=60); Glucose 124 mg/dL (74-106); Magnesium 1.7 mg/dL (1.8-2.4); Sodium 141 mmol/L (136-145); Total Protein 6.6 g/dL (6.4-8.2)
[2023-09-14 05:38] LABS: Albumin Globulin Ratio 0.7
[2023-09-14] MEDS: OMEPRAZOLE 40 MG CAPSULE.DR PO (05:49)
[2023-09-14] MEDS: GABAPENTIN 100 MG CAPSULE PO (05:49)
[2023-09-14] MEDS: ALPRAZOLAM 1 MG TABLET 2 MG PO (05:49)
--- NOTE | 2023-09-14 08:13 | CM.NOTE ---
Rounds made with Dr. Walton. Plan for discharge to [facility]. Mr. Ferreira in agreement.
--- NOTE | 2023-09-14 08:21 | P.DS_ITS ---
DS: Providers Provider Date of admission: 09/11/23 13:30 Primary care physician: Seb Dodson MD Consults: 09/11/23 Consult to Dietitian Routine Reason For Exam: poor appetite/oral intake Reason for consultation: poor appetite/oral intake 09/11/23 17:28 Consult to Publication Manager Routine Has provider been notified: No Reason for consult:: [facility] 09/11/23 17:29 Occupational Therapy Eval and Treat Routine Reason for consultation: Only if needed for Rehab Has provider been notified: No Physical Therapy Eval and Treat Routine Reason for consultation: Eval and Treat Has provider been notified: No DS: Diagnosis Discharge Diagnosis (1) Acute UTI: (2) Dehydration: (3) Arthritis: (4) Anxiety: Plan On admission with sinus tachycardia, uncontrolled hypertension, leukocytosis, acute kidney injury secondary to acute UTI with failed outpatient treatment. Significant dehydration. This is resulted in sepsis (tachycardica, leukocytosis, known source of infection). Continue with current antibiotics based on sensitivities. Saline lock is his increased p.o. intake Acute kidney injury-secondary to dehydration-improved Diabetes mellitus complicating the above picture. Insulin sliding scale. C ontinue to adjust as necessary Suprapubic catheter placed secondary to obstruction-suprapubic catheter the cause of the infection. Diabetic peripheral neuropathy continue with home medication Iron deficiency anemia secondary to poor p.o. intake-continue to monitor daily. Check occult blood if hemoglobin drops negative occult blood Hypomagnesemia-stable Orthostatic hypotension continue with medication Depression with anxiety-continue with medication With recurrence of his symptoms patient could benefit from a rehabilitation stay. Will see how the next 3 to 4 days goes. Likely that length of time to resolve this infection. Unable to improve it as an outpatient. DS: Summary Hospital Course Hospital Course: On admission with sinus tachycardia, uncontrolled hypertension, leukocytosis, acute kidney injury secondary to acute UTI with failed outpatient treatment. Si gnificant dehydration. This is resulted in sepsis (tachycardica, leukocytosis, known source of infection). Continue with current antibiotics based on sensitivities. Patient given IV antibiotics and IV fluids. His BUN and creatinine are improving. Probably back to baseline creatinine of 1.7. Still with significant weakness. Recommended rehab. Repeat sensitivities on the repeat culture should be back later today or tomorrow. I will follow-up on those. Medications see list. Transfer patient to rehab facility today. Where I will continue to monitor patient Time Spent with Patient Time attestation: Total time spent providing and/or coordinating discharge services: Exam Constitutional Vital Signs, click to edit/add: Last Vital Signs Temp 98.2 F 09/14/23 05:54 Pulse 84 09/14/23 07:58 Resp 18 09/14/23 05:54 BP 148/80 H 09/14/23 05:54 Pulse Ox 92 L 09/14/23 05:54 O2 Del Method Room Air 09/14/23 05:54 Documenting provider has reviewed patient's vital signs: yes Common normals: apparent distress General appearance: in distress, lethargic and frail appearing [facility] Common normals: oral mucous membranes not moist (Very dry mucous membranes) Respiratory Common normals: normal respiratory effort Cardio Common normals: regular rhythm Rate: tachycardic GI Common normals: Normal to inspection, nondistended, normoactive bowel sounds present (Prepubic catheter stitch in place.) Neuro Common normals: oriented x3; gait abnormal (EXTR weakness with severe difficulty ambulating) DS: Data Data Completed and Pending Labs on day of discharge: Labs from last 24 hours 09/14/23 09/13/23 09/13/23 04:43 21:39 16:46 WBC 9.7 RBC 3.40 L Hgb 10.7 L Hct 34.1 L MCV 100.3 H MCH 31.5 MCHC 31.4 RDW 13.4 Plt Count 207 MPV 9.7 Neut % (Auto) 60.7 Lymph % (Auto) 23.5 [place] % (Auto) 7.0 Eos % (Auto) 7.8 H Baso % (Auto) 0.6 Neut # (Auto) 5.9 Lymph # (Auto) 2.3 [place] # (Auto) 0.7 Eos # (Auto) 0.8 H Baso # (Auto) 0.1 Abs Immat Gran (auto) 0.04 H Imm/Tot Granulo (auto) 0.4 Sodium 141 Potassium 5.0 Chloride 105 Carbon Dioxide 30.2 Anion Gap 10.8 BUN 45.0 H Creatinine 1.70 H Est GFR ( Amer) 47 L Est GFR (Non-Af Amer) 38 L BUN/Creatinine Ratio 26.5 Glucose 124 H Calcium 9.6 Magnesium 1.7 L Total Bilirubin 0.1 L AST 19 ALT 25 Alkaline Phosphatase 50 NT-Pro-B Natriuret Pep 1384.0 Total Protein 6.6 Albumin 2.6 L Globulin 4.0 Albumin/Globulin Ratio 0.7 POC Glucose 225 H 213 H 09/13/23 11:10 WBC RBC Hgb Hct MCV MCH MCHC RDW Plt Count MPV Neut % (Auto) Lymph % (Auto) [place] % (Auto) Eos % (Auto) Baso % (Auto) Neut # (Auto) Lymph # (Auto) [place] # (Auto) Eos # (Auto) Baso # (Auto) Abs Immat Gran (auto) Imm/Tot Granulo (auto) Sodium Potassium Chloride Carbon Dioxide Anion Gap BUN Creatinine Est GFR ( Amer) Est GFR (Non-Af Amer) BUN/Creatinine Ratio Glucose Calcium Magnesium Total Bilirubin AST ALT Alkaline Phosphatase NT-Pro-B Natriuret Pep Total Protein Albumin Globulin Albumin/Globulin Ratio POC Glucose 281 H Discharge Plan Discharge Disposition: Xfer SNF Discharge Medications: New tramadol 100 mg tablet 100 mg PO Q6H PRN (Reason: pain) Qty: 120 0RF gabapentin 100 mg capsule 100 mg PO Q8H Qty: 90 3RF alprazolam 2 mg tablet 2 mg PO TID PRN (Reason: anxiety) Qty: 90 3RF Continued cilostazol 50 mg tablet 50 mg PO BID fluticasone propionate 50 mcg/actuation spray,suspension 2 spray INTRANASAL Q12H insulin glargine [Lantus Solostar U-100 Insulin] 100 unit/mL (3 mL) insulin pen 25 unit SUBCUT DAILY insulin lispro [Humalog KwikPen Insulin] 100 unit/mL insulin pen 1 sliding scale dose SUBCUT TID lovastatin 40 mg tablet 80 mg PO DAILY Patient Comments: takes at supper Rx Instructions: PER RETAIL FILL HX LAST FILLED 07/18/23 #180 FOR A 90 DAY SUPPLY metformin 500 mg tablet extended release 24 hr 1,000 mg PO DAILY metoprolol succinate 25 mg tablet extended release 24 hr 25 mg PO DAILY Patient Comments: takes at supper midodrine 10 mg tablet 10 mg PO BID mirtazapine 45 mg tablet 45 mg PO QPM montelukast 10 mg tablet 10 mg PO DAILY Patient Comments: takes at lunch omeprazole 40 mg capsule,delayed release(DR/EC) 40 mg PO DAILY Lokelma 5 gram powder in packet 5 g PO .4 times weekly Patient Comments: Sunday ferrous sulfate [Feosol] 325 mg (65 mg iron) tablet 325 mg PO BID calcium carbonate-vitamin D3 600 mg-5 mcg (200 unit) tablet 2 tab PO DAILY cetirizine [All Day Allergy (cetirizine)] 10 mg tablet 10 mg PO .lunch PRN (Reason: allergy symptoms) magnesium 250 mg tablet 250 mg PO BID multivitamin [Daily Multi-Vitamin] Tablet 1 tab PO DAILY Patient Comments: takes at lunch diphenhydramine-acetaminophen [Tylenol PM Extra Strength] 2 tab PO QPM diphenoxylate-atropine [Lomotil] 2.5-0.025 mg tablet 1 tab PO Q6H PRN (Reason: diarrhea) colesevelam 625 mg tablet 1,250 mg PO DAILY Patient Comments: takes 1250 at breakfast, 625 at lunch and 625 at supper Rx Instructions: breakfast aspirin 325 mg tablet,delayed release (DR/EC) 325 mg PO DAILY citalopram [Celexa] 20 mg tablet 20 mg PO DAILY ciprofloxacin HCl [Cipro] 500 mg tablet 500 mg PO BID Qty: 20 1RF Patient Comments: started 09/08/23 for 10 days Discontinued alprazolam 1 mg tablet 2 mg PO TID Patient Comments: Medication has been increased to 2mg per family by DR DODSON gabapentin 100 mg capsule 100 mg PO TID furosemide 20 mg tablet 20 mg PO DAILY PRN (Reason: edema) tramadol 100 mg tablet 100 mg PO Q6H PRN (Reason: pain) Forms: Portal Instructions
[2023-09-14] MEDS: PROSTAT 15 GM PROTEIN/100 CAL 30 ML LIQUID PACKET PO (09:11)
[2023-09-14] MEDS: L. ACIDOPHILUS/L.BULGARICUS 1 PACKET GRAN.PACK PO (09:11)
[2023-09-14] MEDS: POLYETHYLENE GLYCOL 3350 17 GM POWDER PACKET PO (09:11)
--- NOTE | 2023-09-14 09:11 | CM.NOTE ---
Faxed discharge summary and medication list to [facility], called pt's family (Ester). Ester will transport pt at 1:00 to [facility]. Called Pamela for update and notified
[2023-09-14] MEDS: FLUTICASONE PROPIONATE 50 MCG NASAL SPRAY 2 SPRAY NS (09:12)
[2023-09-14] MEDS: GLUCERNA 1.5 CAL 237 ML LIQUID PO (09:12)
[2023-09-14] MEDS: INSULIN DETEMIR 300 UNIT/3 ML INSULN.PEN 25 UNIT SUBQ (09:12)
[2023-09-14] MEDS: MAGNESIUM OXIDE 400 MG TABLET PO (09:15)
[2023-09-14] MEDS: METFORMIN HCL 500 MG TAB.ER.24H 1000 MG PO (09:17)
[2023-09-14] MEDS: METOPROLOL SUCCINATE 25 MG TAB.ER.24H PO (09:18)
[2023-09-14] MEDS: MULTIVITAMIN TABLET 1 TAB PO (09:18)
[2023-09-14] MEDS: MONTELUKAST SODIUM 10 MG TABLET PO (09:18)
[2023-09-14] MEDS: CITALOPRAM HYDROBROMIDE 20 MG TABLET PO (09:19)
[2023-09-14] MEDS: ASPIRIN 325 MG TABLET.DR PO (09:19)
[2023-09-14] MEDS: FERROUS SULFATE 325 MG TABLET PO (09:19)
[2023-09-14] MEDS: CALCIUM CARBONATE 600 MG/VITAMIN D3 400 IU TABLET 2 TAB PO (09:19)
[2023-09-14] MEDS: ATORVASTATIN CALCIUM 20 MG TABLET PO (09:19)
[2023-09-14] MEDS: CILOSTAZOL 100 MG TABLET 50 MG PO (09:19)
[2023-09-14] MEDS: SODIUM ZIRCONIUM CYCLOSILICATE 10 GM POWD.PACK 5 GM PO (09:28)
--- NOTE | 2023-09-14 10:07 | CM.NOTE ---
Pt updated that daughter will transport him to [place] around 1:00.
--- NOTE | 2023-09-14 11:38 | CM.NOTE ---
2nd Notice for Important Message From Medicare discussed with pt, pt verbalizes understanding and denies any questions or concerns.
--- NOTE | 2023-09-19 16:40 | OT.DAILY ---
Occupational Therapy Daily Note OT Inpatient Daily Visit Note Start: 09/12/23 10:14 Freq: Status: Discharge Protocol: Document 09/14/23 12:48 [id number] (Rec: 09/14/23 13:52 [id number]) OT Visit Details Time In/Time Out Time In 12:48 Time Out 01:11 Pain In Pain Level 3 Pain Out Pain Level 3 Medical History Review Changes in medical history since last No visit Changes in medication since last visit No OT Treatment Plan Subjective Subjective Pt states he is feeling tired and had not eaten lunch before visit. Pt was agreeable to order his lunch. AAOx4. Objective Objective STS transfer from chair to standard walker, Min A. 3-5 VCs for hand placement and posture during transfer. No SOB, weakness, or fatigue after transfer. Ambulated to bathroom with CGA for LOB. Able to sit on commode with appropriate use of grab bars. Required 1-3 VCs for hand placement. Max A for donning LB garments. With prompting Pt demonstrates appropriate meal management with a normal thought process. Assessment Assessment Pt tolerated treatment well. He was talkative with appropriate social behaviors. Pt was willing to participate in ADL tasks. Denies change in pain. Pt was agreeable and cooperative with all tasks. Patient Education Patient Education Pt educated on safety during transfers. OT Billing Total Treatment Time Total treatment minutes 23 Total timed treatment Minutes 23 Die Maintenance Timed Codes Self-Detention Management minutes ( 23 minutes) Self-Detention Management units 2
--- NOTE | 2023-09-19 16:41 | OT.DAILY ---
Occupational Therapy Daily Note OT Inpatient Daily Visit Note Start: 09/12/23 10:14 Freq: Status: Discharge Protocol: Document 09/14/23 12:48 [id number] (Rec: 09/14/23 13:52 [id number]) OT Visit Details Time In/Time Out Time In 12:48 Time Out 01:11 Pain In Pain Level 3 Pain Out Pain Level 3 Medical History Review Changes in medical history since last No visit Changes in medication since last visit No OT Treatment Plan Subjective Subjective Pt states he is feeling tired and had not eaten lunch before visit. Pt was agreeable to order his lunch. AAOx4. Objective Objective STS transfer from chair to standard walker, Min A. 3-5 VCs for hand placement and posture during transfer. No SOB, weakness, or fatigue after transfer. Ambulated to bathroom with CGA for LOB. Able to sit on commode with appropriate use of grab bars. Required 1-3 VCs for hand placement. Max A for donning LB garments. With prompting Pt demonstrates appropriate meal management with a normal thought process. Assessment Assessment Pt tolerated treatment well. He was talkative with appropriate social behaviors. Pt was willing to participate in ADL tasks. Denies change in pain. Pt was agreeable and cooperative with all tasks. Patient Education Patient Education Pt educated on safety during transfers. OT Billing Total Treatment Time Total treatment minutes 23 Total timed treatment Minutes 23 Welt Rander Timed Codes Self-Assisted Management minutes ( 23 minutes) Self-Assisted Management units 2
== END 2023-09-14 13:28 | DRG 698 ==
LOC: ER 13:39 → MS 13:43
PROVIDERS: Admitting Provider Family Medicine; Emergency Provider Emergency Medicine; PCP Family Medicine; Visit Provider Family Medicine
DX: T83.518A Infection and inflammatory reaction due to other urinary catheter, initial encounter (principal); A41.9 Sepsis, unspecified organism; R65.20 Severe sepsis without septic shock; N17.9 Acute kidney failure, unspecified; N39.0 Urinary tract infection, site not specified; E86.0 Dehydration; J45.909 Unspecified asthma, uncomplicated; I48.91 Unspecified atrial fibrillation; N39.46 Mixed incontinence; Z87.442 Personal history of urinary calculi; Z87.01 Personal history of pneumonia (recurrent); C61 Malignant neoplasm of prostate; Z79.82 Long term (current) use of aspirin; Z79.4 Long term (current) use of insulin; Z79.84 Long term (current) use of oral hypoglycemic drugs; R10.9 Unspecified abdominal pain; E87.5 Hyperkalemia; K59.00 Constipation, unspecified; R09.02 Hypoxemia; K21.9 Gastro-esophageal reflux disease without esophagitis; F41.8 Other specified anxiety disorders; E83.42 Hypomagnesemia; E11.42 Type 2 diabetes mellitus with diabetic polyneuropathy; M54.50 Low back pain, unspecified; N99.89 Other postprocedural complications and disorders of genitourinary system; B96.5 Pseudomonas (aeruginosa) (mallei) (pseudomallei) as the cause of diseases classified elsewhere; R62.7 Adult failure to thrive; Z68.25 Body mass index [BMI] 25.0-25.9, adult; I95.1 Orthostatic hypotension; D50.9 Iron deficiency anemia, unspecified; M19.90 Unspecified osteoarthritis, unspecified site; Z95.0 Presence of cardiac pacemaker; Z90.79 Acquired absence of other genital organ(s); T83.84XA Pain due to genitourinary prosthetic devices, implants and grafts, initial encounter; Z79.899 Other long term (current) drug therapy
CPT/HCPCS: 36415; 71045; 74176; 80048; 80053; 81001; 82948; 83605; 83735; 83880; 84484; 85025; 85378; 87086; 87186; 87635; 87811; 93005; 94667; 94668; 94761; 96361; 96365; 96366; 96367; 96375; 97110; 97116; 97161; 97162; 97165; 97530; 97535; 99285; G0328; G0378; J1170

== ENCOUNTER 2023-10-06 18:52 | Observation (INO) | payer MEDICARE, BC, SELFPAY ==
[2023-10-06 18:55] VITALS: BP 99/65; PULSE 85; RESP 18; TEMP 36.5; O2SAT 96; BMI 25.1
[2023-10-06 19:06] VITALS: BP 102/64; PULSE 76; RESP 18; O2SAT 95
--- NOTE | 2023-10-06 19:15 | PC.NURSE ---
Skin tear to right elbow, area cleansed and covered with adaptic, telfa and kerlex.
--- NOTE | 2023-10-06 19:17 | CT_ITS ---
The [address] [address] Patient Name: RALPH GARG MRN: [id number] date: 1940 Sex: M Assigned Patient Location: ER Current Patient Location: ER Accession/Order Number: [id number] Exam Date: 10/06/2023 19:36 Report Date: 10/06/2023 20:14 At the request of: DANYA MOISE Procedure: CT cervical spine wo con EXAM: CT cervical spine wo con HISTORY: FALL, PAIN COMPARISON: Cervical spine CT 01/05/2023 TECHNIQUE: Axial CT imaging is performed. Sagittal and coronal reformatted/reconstructed sequencing was additionally performed. FINDINGS: Maintenance of the normal cervical lordosis. Vertebral body heights and alignments exhibit no fracture or listhesis. The dens and lateral masses of C1 are symmetric. Multilevel intervertebral disc space narrowing, endplate, uncovertebral and facet arthrosis. No prevertebral soft tissue edema. The visualized osseous skull base, mastoid air cells, airway and thoracic inlet are unremarkable. Atherosclerosis of the vascular structures. CT/CT cervical spine wo con IMPRESSION: No visualized acute abnormality Electronically authenticated by: KORI CASTILLO Date: 10/06/2023 20:14
--- NOTE | 2023-10-06 19:17 | ECG_ITS ---
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
--- NOTE | 2023-10-06 19:17 | CT_ITS ---
The [address] [address] Patient Name: RALPH GARG MRN: [id number] date: 1940 Sex: M Assigned Patient Location: ER Current Patient Location: ER Accession/Order Number: [id number] Exam Date: 10/06/2023 19:36 Report Date: 10/06/2023 20:30 At the request of: DANYA MOISE Procedure: CT head/brain wo con EXAM: CT head/brain wo con HISTORY: FALL, HEAD INJURY COMPARISON: CT brain 01/05/2023. TECHNIQUE: Axial CT scans through the head were obtained without IV contrast administration. Dose reduction techniques were achieved by using: automated exposure control and/or adjustment of mA and /or kV according to patient size and/or use of iterative reconstruction technique. FINDINGS: There is no evidence of acute intracranial hemorrhage or abnormal extra-axial fluid collection. No mass effect or midline shift is seen. There is no evidence of large acute territorial infarction. There is no hydrocephalus. Mild enlarged ventricles and sulci, consistent with age appropriate cerebral atrophy. Mild low-attenuation areas are present in supratentorial white matter, likely represents chronic microvascular ischemia. To the limit of CT, the posterior fossa appears unremarkable. No definite acute fracture is identified. Soft tissues are unremarkable. The visualized orbits show no abnormality. There is small air-fluid level within the right maxillary sinus, near complete opacification of bilateral frontal sinus, frontal recess and polypoid soft tissue filling the right ostiomeatal unit. There is complete opacification of right mastoid air cells. These findings have slightly improved since 01/05/2023. CT/CT head/brain wo con IMPRESSION: No CT evidence of acute intracranial abnormality. Mild chronic microvascular ischemia and involutional changes. Incidental note of small air-fluid level within the right maxillary sinus, consistent with acute sinusitis. Chronic sinusitis, as described. Complete opacification of right mastoid air cells, may represent mastoid effusion and/or mastoiditis. Electronically authenticated by: DIANA LANGU Date: 10/06/2023 20:30
--- NOTE | 2023-10-06 19:34 | ED.GENADUL1 ---
HPI - General Adult General Chief complaint: Fall Stated complaint: FALL Time Seen by Provider: 10/06/23 19:17 Source: patient Mode of arrival: ambulance History of Present Illness HPI narrative: 83-year-old male to the emergency department with chief complaint fall. He is reported in his mental status baseline. He ambulates with assistance devices. Today while transitioning he fell backwards and struck his head on the ground. No loss consciousness. She is not on any blood thinners. He sent to the emergency department for evaluation for fall. He denies any pain or injuries. He has no complaints and did not intend to seek care today. Related Data Home Medications Medication Instructions Recorded Confirmed calcium carbonate 600 mg-vitamin 2 tab PO DAILY 08/21/23 10/06/23 D3 5 mcg (200 unit) tablet cetirizine 10 mg tablet (All Day 10 mg PO .lunch PRN allergy 08/21/23 10/06/23 Allergy (cetirizine)) symptoms cilostazol 50 mg tablet 50 mg PO BID 08/21/23 10/06/23 diphenhydramine-acetaminophen 2 tab PO QPM 08/21/23 09/11/23 diphenoxylate-atropine 2.5 1 tab PO Q6H PRN diarrhea 08/21/23 09/11/23 mg-0.025 mg tablet (Lomotil) ferrous sulfate 325 mg (65 mg 325 mg PO BID 08/21/23 10/06/23 iron) tablet (Feosol) fluticasone propionate 50 2 spray intranasal Q12H 08/21/23 10/06/23 mcg/actuation nasal spray,suspension insulin glargine 100 unit/mL (3 25 unit subcut DAILY 08/21/23 10/06/23 mL) subcutaneous pen (Lantus Solostar U-100 Insulin) insulin lispro 100 unit/mL 1 sliding scale dose subcut TID 08/21/23 10/06/23 subcutaneous pen (Humalog KwikPen (U-100) Insulin) lovastatin 40 mg tablet 80 mg PO DAILY 08/21/23 10/06/23 magnesium 250 mg tablet 250 mg PO BID 08/21/23 09/11/23 metformin 500 mg tablet,extended 1,000 mg PO DAILY 08/21/23 10/06/23 release 24 hr metoprolol succinate 25 mg 25 mg PO DAILY 08/21/23 10/06/23 tablet,extended release 24 hr midodrine 10 mg tablet 10 mg PO BID 08/21/23 10/06/23 mirtazapine 45 mg tablet 45 mg PO QPM 08/21/23 10/06/23 montelukast 10 mg tablet 10 mg PO DAILY 08/21/23 10/06/23 multivitamin (Daily Multi-Vitamin 1 tab PO DAILY 08/21/23 10/06/23 tablet) omeprazole 40 mg capsule,delayed 40 mg PO DAILY 08/21/23 10/06/23 release sodium zirconium cyclosilicate 5 5 g PO .4 times weekly 08/21/23 10/06/23 gram oral powder packet (Lokelma) citalopram 20 mg tablet (Celexa) 20 mg PO DAILY 09/06/23 10/06/23 aspirin 325 mg tablet,delayed 325 mg PO DAILY 09/11/23 10/06/23 release colesevelam 625 mg tablet 1,250 mg PO DAILY 09/11/23 10/06/23 alprazolam 0.5 mg tablet mg 10/06/23 alprazolam 1 mg tablet 2 mg PO TID 10/06/23 10/06/23 Previous Rx's Medication Instructions Recorded ciprofloxacin HCl 500 mg tablet 500 mg PO BID #20 tabs 09/08/23 (Cipro) alprazolam 2 mg tablet 2 mg PO TID PRN anxiety #90 tabs 09/14/23 gabapentin 100 mg capsule 100 mg PO Q8H #90 caps 09/14/23 tramadol 100 mg tablet 100 mg PO Q6H PRN pain #120 tabs 09/14/23 Allergies Allergy/AdvReac Type Severity Reaction Status Date / Time amoxicillin [From Augmentin] Allergy Diarrhea Verified 10/06/23 19:37 canagliflozin [From Invokana] Allergy Unknown Verified 10/06/23 19:37 clavulanic acid Allergy Diarrhea Verified 10/06/23 19:37 [From Augmentin] hydroxyzine Allergy Anxiety Verified 10/06/23 19:37 levofloxacin Allergy joint pain Verified 10/06/23 19:37 mirabegron [From Myrbetriq] Allergy Unknown Verified 10/06/23 19:37 pioglitazone [From Actos] Allergy Abdominal Verified 10/06/23 19:37 Pain Review of Systems ROS Status of ROS 10 or more systems reviewed and unremarkable except as noted in history and below [facility] Medical History (Updated 10/06/23 @ 21:09 by Nicolas Camacho MD) Dehydration ?E86.0 - Dehydration (ICD-10) Adult failure to thrive ?R62.7 - Adult failure to thrive (ICD-10) Acute UTI ?N39.0 - Urinary tract infection, site not specified (ICD-10) Hydroureteronephrosis ?N13.30 - Unspecified hydronephrosis (ICD-10) Acute renal injury ?N17.9 - Acute kidney failure, unspecified (ICD-10) History of blood transfusion ?Z92.89 - Personal history of other medical treatment (ICD-10) Anemia ?D64.9 - Anemia, unspecified (ICD-10) Arthritis ?M19.90 - Unspecified osteoarthritis, unspecified site (ICD-10) Asthma ?J45.909 - Unspecified asthma, uncomplicated (ICD-10) Pneumonia ?J18.9 - Pneumonia, unspecified organism (ICD-10) Tremor ?R25.1 - Tremor, unspecified (ICD-10) Amputation toe ?S98.139A - Complete traumatic amputation of one unspecified lesser toe, initial encounter (ICD-10) Abnormal TRUS (transrectal ultrasound), prostate ?R93.89 - Abnormal findings on diagnostic imaging of other specified body structures (ICD-10) Elevated PSA ?R97.20 - Elevated prostate specific antigen [PSA] (ICD-10) Urinary tract infection ?N39.0 - Urinary tract infection, site not specified (ICD-10) Ulcer of gastric fundus ?K25.9 - Gastric ulcer, unspecified as acute or chronic, without hemorrhage or perforation (ICD-10) Seasonal allergic rhinitis ?J30.2 - Other seasonal allergic rhinitis (ICD-10) Kidney stones ?N20.0 - Calculus of kidney (ICD-10) Glucosuria ?R81 - Glycosuria (ICD-10) H/O esophageal reflux ?Z87.19 - Personal history of other diseases of the digestive system (ICD-10) Diabetes ?E11.9 - Type 2 diabetes mellitus without complications (ICD-10) Atrial fibrillation ?I48.91 - Unspecified atrial fibrillation (ICD-10) Mixed incontinence ?N39.46 - Mixed incontinence (ICD-10) Prostate cancer ?C61 - Malignant neoplasm of prostate (ICD-10) Pacemaker ?Z95.0 - Presence of cardiac pacemaker (ICD-10) Surgical History (Updated 08/30/23 @ 11:53 by Gracie Cabral) History of esophagogastroduodenoscopy ?Z98.890 - Other specified postprocedural states (ICD-10) History of colonoscopy ?Z98.890 - Other specified postprocedural states (ICD-10) History of arthroscopy of knee ?Z98.890 - Other specified postprocedural states (ICD-10) History of ear surgery ?Z98.890 - Other specified postprocedural states (ICD-10) H/O hand surgery ?Z98.890 - Other specified postprocedural states (ICD-10) H/O wrist surgery ?Z98.890 - Other specified postprocedural states (ICD-10) H/O cataract extraction ?Z98.49 - Cataract extraction status, unspecified eye (ICD-10) H/O prostate biopsy ?Z98.890 - Other specified postprocedural states (ICD-10) H/O lithotripsy ?Z98.890 - Other specified postprocedural states (ICD-10) H/O radical prostatectomy ?Z90.79 - Acquired absence of other genital organ(s) (ICD-10) Family History (Updated 08/21/23 @ 10:37 by Le Mata NP) Other Alcoholism Family history of lung cancer Social History (Updated 09/11/23 @ 14:56 by Renetta Brewster) Within the past year, how often did you have a drink containing alcohol: never Score interpretation: A score less than 4 is consistent with normal alcohol consumption. Smoking status: Never smoker Non-prescribed substance use: denies use Highest level of school completed/degree received: high school graduate Are you now , , , , never or living with a partner: living with partner Do you think of yourself as: straight/heterosexual Gender Identity: male Exam Narrative Exam Narrative: Primary Survey Airway Intact Lung sounds clear and equal bilaterally Pulses full and equal to femoral, radial, and dorsalis pedis bilaterally Heart regular rate and rhythm Skin warm, dry, pink GCS 14 CONFUSED Movement and sensation intact to all extremities Patient Fully Exposed. Skin tear to right elbow, no traumatic injuries otherwise. Secondary Survey General: GCS 14; Alert, SITUATIONAL CONFUSION HEENT: Head atraumatic; Facial bones stable; Eyes normal inspection, Pupils round, 4-2mm blt; No evidence of oropharyngeal trauma; No blood in the nares or septal hematoma; Tympanic Membranes intact, no hemotympanum or drainage Neck: Normal inspection; C-collar in place; No tracheal deviation; No JVD Resp: Normal breath sounds, no wheeze or crackles; No chest wall tenderness, crepitus, or subcutaneous emphysema; No visible evidence of chest wall trauma; Chest rise symmetric; No respiratory distress Heart: Heart rate and rhythm regular; Carotid, radial, femoral, dorsalis pedis pulses +2 and equal bilaterally; No Murmurs Abdomen: Soft; Non-tender No ecchymosis or visible wounds to abdominal wall; No distention, guarding, rigidity, or rebound; Pelvis stable, no pain on compression MSK: All major joints with normal ROM. No deformities. No bony tenderness. No tenderness or step-offs to palpation of thoracic or lumbar spine; No ecchymosis or wounds to upper or lower back. Neuro: Alert and oriented; Sensation intact and symmetric bilaterally; muscle strengths symmetric bilaterally in the upper and lower extremities. Skin: Color normal; No rash; Warm; Dry Constitutional Vital Signs, click to edit/add: Last Vital Signs Temp 97.7 F 10/06/23 18:55 Pulse 84 10/06/23 20:12 Resp 18 10/06/23 20:12 BP 134/81 10/06/23 20:12 Pulse Ox 96 10/06/23 20:12 Course Vital Signs Vital signs: Vital Signs Temperature 97.7 F 10/06/23 18:55 Pulse Rate 85 10/06/23 18:55 Respiratory Rate 18 10/06/23 18:55 Blood Pressure 99/65 10/06/23 18:55 Pulse Oximetry 96 10/06/23 18:55 Temperature 97.7 F 10/06/23 18:55 Pulse Rate 84 10/06/23 20:12 Respiratory Rate 18 10/06/23 20:12 Blood Pressure 134/81 10/06/23 20:12 Pulse Oximetry 96 10/06/23 20:12 Medical Decision Making MDM Narrative Medical decision making narrative: Well-appearing 83-year-old male to the emergency Department chief complaint fall. Vital stable, the patient is afebrile. He is at his stated mental status baseline from halfway. Skin tear to the right elbow otherwise no evidence traumatic injuries. CT head and cervical spine are ordered as he cannot be ruled out by clinical decision rules alone. Basic labs. Patient agrees with this plan. CT head: Negative CT C-spine: Negative Labwork reviewed and noted. He does have acute kidney injury today with a creatinine of 3.01, baseline appears to be 1.7. BUN/creatinine ratio suggests dehydration which correlates with his clinical appearance. He also has a mild hyperkalemia. He is hyperglycemic in the snow nonfasting diabetic although severely at three seventy-seven. Does not appear to be in DKA With normal CO2 and no ketones in the urine. Urinalysis is consistent with urinary tract infection. Fluids were given for his dehydration/THOMAS. Rocephin is given for his urinary tract infection. He has mild hyperkalemia at 5.7. Lokelma is given. There are no EKG changes. Case will be discussed with the hospitalist for admission. Medical Records Medical records reviewed: Yes I reviewed the patient's medical records Lab Data Lab results reviewed: Yes I reviewed the patient's lab results Labs: Lab Results 10/06/23 10/06/23 Range/Units 19:30 19:32 WBC 7.7 (4.0-11.0) 10^3/uL RBC 3.57 L (4.70-6.10) 10^6/uL Hgb 11.3 L (14.0-18.0) g/dL Hct 35.6 L (42.0-54.0) % MCV 99.7 H (80.0-94.0) fL MCH 31.7 (25.9-34.0) pg MCHC 31.7 (29.9-35.2) g/dL RDW 13.5 (11.0-15.0) % Plt Count 225 (150-450) 10^3/uL MPV 9.9 (9.5-13.5) fL Neut % (Auto) 87.5 H (43.0-75.0) % Lymph % (Auto) 7.1 L (20.5-60.0) % [place] % (Auto) 4.5 (1.7-12.0) % Eos % (Auto) 0.0 L (0.9-7.0) % Baso % (Auto) 0.1 L (0.2-2.0) % Neut # (Auto) 6.8 H (1.4-6.5) 10^3/uL Lymph # (Auto) 0.6 L (1.2-3.8) 10^3/uL [place] # (Auto) 0.4 (0.3-0.8) 10^3/uL Eos # (Auto) 0.0 (0.0-0.7) 10^3/uL Baso # (Auto) 0.0 (0.0-0.1) 10^3/uL Abs Immat Gran (auto) 0.06 H (0.00-0.03) 10^3/uL Imm/Tot Granulo (auto) 0.8 H (0.0-0.5) % Sodium 133 L (136-145) mmol/L Potassium 5.7 H (3.5-5.1) mmol/L Chloride 100 (98-107) mmol/L Carbon Dioxide 26.0 (21.0-32.0) mmol/L Anion Gap 12.7 BUN 95.0 H* (7.0-18.0) mg/dL Creatinine 3.01 H (0.70-1.30) mg/dL Est GFR ( Amer) 24 L (>=60) Est GFR (Non-Af Amer) 20 L (>=60) BUN/Creatinine Ratio 31.6 Glucose 377 H (74-106) mg/dL Calcium 8.5 (8.5-10.1) mg/dL Total Bilirubin 0.2 (0.2-1.0) mg/dL AST 10 L (15-37) U/L ALT 18 (16-63) U/L Alkaline Phosphatase 50 (46-116) U/L Total Protein 7.1 (6.4-8.2) g/dL Albumin 3.0 L (3.4-5.0) g/dL Globulin 4.1 g/dL Albumin/Globulin Ratio 0.7 Urine Color Lt. yellow (YELLOW) Urine Clarity Clear (CLEAR) Urine pH 6.0 (5.0-9.0) Ur Specific [place] 1.015 (1.005-1.025) Urine Protein 30 A (NEG/TRACE) mg/dL Urine Glucose (UA) >=1000 A (NEGATIVE) mg/dL Urine Ketones Negative (NEGATIVE) mg/dL Urine Occult Blood Small A (NEGATIVE) Urine Nitrite Negative (NEGATIVE) Urine Bilirubin Negative (NEGATIVE) Urine Urobilinogen 0.2 (0.2-1.0) EU/dL Ur Leukocyte Esterase Small A (NEGATIVE) Urine RBC 0-2 (0-2) #/HPF Urine WBC 2-5 A (NONE SEEN) #/HPF Ur Squamous Epith Cells Few A (NONE/RARE) #/LPF Urine Crystals Seen A (None Seen) #/HPF Uric Acid Crystals Rare Urine Bacteria Large A (NONE SEEN) #/HPF Urine Casts None seen (NONE SEEN) #/LPF Urine Mucus None seen (NONE SEEN) Urine Yeast Seen A (NONE SEEN) Ur Culture Indicated? Yes ECG Data Attestation: I personally reviewed and interpreted this ECG as follows: (Normal sinus rhythm at a rate of seventy-six. QTc four sixty-two. No ischemic pattern.) Critical Care Time Critical Care Time Attestation: Critical Care Procedure Note Authorized and Performed by: Nicolas Camacho DO Total critical care time: 32 min Due to a high probability of clinically significant, life threatening deterioration, the patient required my highest level of preparedness to intervene emergently and I personally spent this critical care time directly and personally managing the patient. This critical care time included obtaining a history; examining the patient; pulse oximetry; ordering and review of studies; arranging urgent treatment with development of a management plan; evaluation of patient's response to treatment; frequent reassessment; and, discussions with other providers. This critical care time was performed to assess and manage the high probability of imminent, life-threatening deterioration that could result in multi-organ failure. It was exclusive of separately billable procedures and treating other patients and teaching time. Please see MDM section and the rest of the note for further information on patient assessment and treatment. Discharge Plan Discharge Chief Complaint: Fall Clinical Impression: THOMAS (acute kidney injury), Acute hyperglycemia, Weakness, Acute UTI, Acute hyperkalemia Fall Qualifiers: Encounter type: initial encounter Qualified Code(s): W19.XXXA - Unspecified fall, initial encounter Patient Disposition: Admitted As Inpatient Time of Disposition Decision: 21:09 Condition: Fair Prescriptions / Home Meds: No Action cilostazol 50 mg tablet 50 mg PO BID fluticasone propionate 50 mcg/actuation spray,suspension 2 spray INTRANASAL Q12H insulin glargine [Lantus Solostar U-100 Insulin] 100 unit/mL (3 mL) insulin pen 25 unit SUBCUT DAILY insulin lispro [Humalog KwikPen Insulin] 100 unit/mL insulin pen 1 sliding scale dose SUBCUT TID lovastatin 40 mg tablet 80 mg PO DAILY Patient Comments: takes at supper Rx Instructions: PER RETAIL FILL HX LAST FILLED 07/18/23 #180 FOR A 90 DAY SUPPLY metformin 500 mg tablet extended release 24 hr 1,000 mg PO DAILY metoprolol succinate 25 mg tablet extended release 24 hr 25 mg PO DAILY Patient Comments: takes at supper midodrine 10 mg tablet 10 mg PO BID mirtazapine 45 mg tablet 45 mg PO QPM montelukast 10 mg tablet 10 mg PO DAILY Patient Comments: takes at lunch omeprazole 40 mg capsule,delayed release(DR/EC) 40 mg PO DAILY Lokelma 5 gram powder in packet 5 g PO .4 times weekly Patient Comments: Sunday ferrous sulfate [Feosol] 325 mg (65 mg iron) tablet 325 mg PO BID calcium carbonate-vitamin D3 600 mg-5 mcg (200 unit) tablet 2 tab PO DAILY cetirizine [All Day Allergy (cetirizine)] 10 mg tablet 10 mg PO .lunch PRN (Reason: allergy symptoms) magnesium 250 mg tablet 250 mg PO BID multivitamin [Daily Multi-Vitamin] Tablet 1 tab PO DAILY Patient Comments: takes at lunch diphenhydramine-acetaminophen [Tylenol PM Extra Strength] 2 tab PO QPM diphenoxylate-atropine [Lomotil] 2.5-0.025 mg tablet 1 tab PO Q6H PRN (Reason: diarrhea) colesevelam 625 mg tablet 1,250 mg PO DAILY Patient Comments: takes 1250 at breakfast, 625 at lunch and 625 at supper Rx Instructions: breakfast aspirin 325 mg tablet,delayed release (DR/EC) 325 mg PO DAILY tramadol 100 mg tablet 100 mg PO Q6H PRN (Reason: pain) Qty: 120 0RF gabapentin 100 mg capsule 100 mg PO Q8H Qty: 90 3RF alprazolam 2 mg tablet 2 mg PO TID PRN (Reason: anxiety) Qty: 90 3RF citalopram [Celexa] 20 mg tablet 20 mg PO DAILY ciprofloxacin HCl [Cipro] 500 mg tablet 500 mg PO BID Qty: 20 1RF Patient Comments: started 09/08/23 for 10 days alprazolam 1 mg tablet 2 mg PO TID alprazolam 0.5 mg tablet Referrals: Seb Walton MD [Primary Care Provider] - 1 week
[2023-10-06 19:41] LABS: Bilirubin Urine NEGATIVE (NEGATIVE); Blood Urine SMALL (NEGATIVE); Clarity Urine CLEAR (CLEAR); Color Urine LT. YELLOW (YELLOW); Glucose Urine UA >=1000 mg/dL (NEGATIVE); Ketones Urine NEGATIVE (NEGATIVE); Leukocyte Esterase Urine SMALL (NEGATIVE); Nitrite Urine NEGATIVE (NEGATIVE); Protein Urine 30 mg/dL (NEG/TRACE); Specific Gravity Urine 1.015 (1.005-1.025); Urine Microscopic Indicated YES; Urobilinogen Urine 0.2 EU/dL (0.2-1.0)
[2023-10-06 19:42] LABS: Basophils Percent Auto 0.1 % (0.2-2.0); Hematocrit 35.6 % (42.0-54.0); Hemoglobin 11.3 g/dL (14.0-18.0); Immature Granulocytes Abs Auto 0.06 10^3/uL (0.00-0.03); Immature Granulocytes Pct Auto 0.8 % (0.0-0.5); Lymphocytes Absolute Auto 0.6 10^3/uL (1.2-3.8); Lymphocytes Percent Auto 7.1 % (20.5-60.0); Mean Corpuscular HGB Conc 31.7 g/dL (29.9-35.2); Mean Corpuscular Hemoglobin 31.7 pg (25.9-34.0); Mean Corpuscular Volume 99.7 fL (80.0-94.0); Mean Platelet Volume 9.9 fL (9.5-13.5); Monocytes Absolute Auto 0.4 10^3/uL (0.3-0.8); Monocytes Percent Auto 4.5 % (1.7-12.0); Neutrophils Absolute Auto 6.8 10^3/uL (1.4-6.5); Neutrophils Percent Auto 87.5 % (43.0-75.0); Platelet Count 225 10^3/uL (150-450); Red Blood Count 3.57 10^6/uL (4.70-6.10); Red Cell Distribution Width 13.5 % (11.0-15.0); White Blood Count 7.7 10^3/uL (4.0-11.0)
[2023-10-06 19:52] LABS: Bacteria Urine LARGE #/HPF (NONE SEEN); Mucus Urine NONE SEEN (NONE SEEN); RBC Urine 0-2 #/HPF (0-2); Squamous Epithelial Cell Urine FEW #/LPF (NONE/RARE)
[2023-10-06 19:53] LABS: Cast Seen? NONE SEEN #/LPF (NONE SEEN); Crystals Seen? Seen #/HPF (None Seen); Uric Acid Crystals Urine RARE; Urine Culture Indicated YES
[2023-10-06 19:57] LABS: Alanine Aminotransferase 18 U/L (16-63); Albumin Globulin Ratio 0.7; Alkaline Phosphatase 50 U/L (46-116); Anion Gap 12.7; Aspartate Amino Transferase 10 U/L (15-37); BUN Creatinine Ratio 31.6; Bilirubin Total 0.2 mg/dL (0.2-1.0); Calcium 8.5 mg/dL (8.5-10.1); Chloride 100 mmol/L (98-107); Estimated GFR (African America 24 (>=60); Estimated GFR (Non-African Ame 20 (>=60); Globulin 4.1 g/dL; Glucose 377 mg/dL (74-106); Potassium 5.7 mmol/L (3.5-5.1); Sodium 133 mmol/L (136-145); Total Protein 7.1 g/dL (6.4-8.2)
[2023-10-06 20:12] VITALS: BP 134/81; PULSE 84; RESP 18; O2SAT 96
[2023-10-06] MEDS: 0.9 % SODIUM CHLORIDE 1,000 ML 999 ML IV (20:35)
[2023-10-06] MEDS: INSULIN REGULAR 300 UNITS/3 ML 10 UNIT SUBQ (21:11)
[2023-10-06] MEDS: CEFTRIAXONE 1,000 MG in 0.9 % SODIUM CHLORIDE 50 ML 100 MG IV (22:22)
[2023-10-06 23:01] VITALS: BP 151/103; BP 152/103; PULSE 70; PULSE 85; RESP 18; RESP 20; TEMP 36.8; O2SAT 94; O2SAT 95; BMI 23.9
--- NOTE | 2023-10-07 03:24 | PC.NURSE ---
pt has repeatedly pulled out multiple IVs at this time that were ultrasound started. pt uncooperative with restart at this time, will attempt again once pt agreeable
[2023-10-07] MEDS: SODIUM ZIRCONIUM CYCLOSILICATE 10 GM POWD.PACK PO ×2 (05:10→09:08)
[2023-10-07 05:37] LABS: Alanine Aminotransferase <6 U/L (16-63); Albumin Globulin Ratio 0.7; Albumin Level 3.1 g/dL (3.4-5.0); Alkaline Phosphatase 49 U/L (46-116); Anion Gap 12.8; Aspartate Amino Transferase 9 U/L (15-37); BUN Creatinine Ratio 35.2; Bilirubin Total 0.2 mg/dL (0.2-1.0); Calcium 8.7 mg/dL (8.5-10.1); Carbon Dioxide 26.5 mmol/L (21.0-32.0); Chloride 103 mmol/L (98-107); Estimated GFR (African America 33 (>=60); Estimated GFR (Non-African Ame 28 (>=60); Globulin 4.2 g/dL; Glucose 119 mg/dL (74-106); Magnesium 2.8 mg/dL (1.8-2.4); Potassium 5.3 mmol/L (3.5-5.1); Sodium 137 mmol/L (136-145); Total Protein 7.3 g/dL (6.4-8.2)
--- NOTE | 2023-10-07 05:41 | W.PM.TELEPN ---
Progress Note: Subjective Subjective Interval history: CC: Fall HPI: 83 y/o Male who presents from [facility] for evaluation of fall. patient with baseline memory issues limiting history intake.he had about 3 falls this year he reports, he ambulates with a walker, and yesterday while transitioning he fell backwards and per reports struck his head to the ground. he denies any headaches, or focal weakness, denies seizures, denies LOC, sent to the ER for evaluation. reports he has a suprapubic catheter and occasional UTI's, denies fevers, but reports chills. in the ER, he is afebrile, labs remarkable for bacteruria and elevated Creatinine from baseline. rocephin and fluids given. Past medical/surgical history: limited due to underlying memory impairment ( CKD, DM type II, HTN, PVD, IBS-D) Social history: no smoking or ethanol use. FHx: N/A ROS: negative except for HPI Home medications: reviewed and reconciled, in chart Allergies: Multiple (likely side effects than true allergies) Physical Exam: Gen: lying in bed, in no distress, AO x 2 HEENT: NC/AT, EOMI, neck tilted right CVS: no edema, distant heart sounds Lungs: bilateral air entry, normal respiratory effort Ext: right elbow skin tear, Left upper extremity immobilized Neuro: moves all extremities, follows simple commands Exam Constitutional Vital Signs, click to edit/add: Last Vital Signs Temp 98.2 F 10/06/23 23:01 Pulse 85 10/06/23 23:01 Resp 18 10/06/23 23:01 BP 151/103 H 10/06/23 23:01 Pulse Ox 94 L 10/06/23 23:01 O2 Del Method Room Air 10/06/23 23:01 Progress Note: Objective Labs Labs: Short CBC 10/06/23 Range/Units 19:32 WBC 7.7 (4.0-11.0) 10^3/uL Hgb 11.3 L (14.0-18.0) g/dL Hct 35.6 L (42.0-54.0) % Plt Count 225 (150-450) 10^3/uL BMP 10/06/23 19:32 Sodium 133 L Potassium 5.7 H Chloride 100 Carbon Dioxide 26.0 BUN 95.0 H* Creatinine 3.01 H Glucose 377 H Calcium 8.5 Liver Function 10/06/23 Range/Units 19:32 Total Bilirubin 0.2 (0.2-1.0) mg/dL AST 10 L (15-37) U/L ALT 18 (16-63) U/L Alkaline Phosphatase 50 (46-116) U/L Albumin 3.0 L (3.4-5.0) g/dL Urine 10/06/23 Range/Units 19:30 Urine Color Lt. yellow (YELLOW) Urine Clarity Clear (CLEAR) Urine pH 6.0 (5.0-9.0) Ur Specific [place] 1.015 (1.005-1.025) Urine Protein 30 A (NEG/TRACE) mg/dL Urine Glucose (UA) >=1000 A (NEGATIVE) mg/dL Progress Note: A&P Assessment and Plan (1) Acute hyperkalemia: Assessment and Plan: - schedule lokelma, low K diet - Recheck K level - telemetry (2) Fall: Assessment and Plan: - PT/OT evaluation - fall precautions Qualifiers: Encounter type: initial encounter Qualified Code(s): W19.XXXA - Unspecified fall, initial encounter (3) Acute UTI: Assessment and Plan: - previous culture, pansensitive pseudomonas - DC Rocephin, Give zosyn, - check urine culture - attempt to exchange catheter (4) Weakness: Assessment and Plan: -likely due to above - check TSH, B12, folate - optimize nutritional status (5) Acute hyperglycemia: Assessment and Plan: order home insulin regimen, A1c level, SSI coverage (6) THOMAS (acute kidney injury): Assessment and Plan: IVF's, check REnal US, avoid nephrotoxic agents, renally dose medications Plan per above DVT ppx- Lovenox Full Code Discussed with ER doctor, bedside nurse Disposition- back to [facility] when medically stable As the provider of this telehealth evaluation, requested by the evaluating physician, I attest that i introduced myself to the patient, provided my credentials, and determined that telemedicine via a real time 2 way interactive audio and video platform is an appropriate and effective means of the patients treatment team. I reviewed the patient chart, and discussed with patient treatment team. the virtual encounter took place from [place]. approximately 25 minutes. Telemedicine Attestation Telemedicine Attestation I conducted this encounter from [[place]] via secure live, [id number] video conference with the patient, located at [facility] with [nursing staff team]. Prior to the interview, the risks and benefits of telemedicine were discussed with the patient and verbal consent was obtained.
[2023-10-07 06:00] VITALS: BP 167/83; PULSE 69; RESP 16; TEMP 36.6; O2SAT 98
[2023-10-07 06:25] LABS: Creatine Kinase 25 U/L (39-308)
[2023-10-07] MEDS: ALPRAZOLAM 1 MG TABLET 2 MG PO (06:42)
--- NOTE | 2023-10-07 07:04 | PC.NURSE ---
tele-hospitalist placed transfer order; however the patient is not transferring. The RN talked to the telehospitalist on the phone to clarify the order. Tele-hospitalist said the patient is not transferring, but he could not delete the order because it would delete all the orders. He placed a miscellaneous order to cancel the transfer order.
[2023-10-07] MEDS: METOPROLOL SUCCINATE 25 MG TAB.ER.24H PO (09:07)
[2023-10-07] MEDS: CILOSTAZOL 100 MG TABLET 50 MG PO (09:07)
[2023-10-07] MEDS: ATORVASTATIN CALCIUM 20 MG TABLET PO (09:07)
[2023-10-07] MEDS: ASPIRIN 325 MG TABLET.DR PO (09:07)
[2023-10-07] MEDS: MIDODRINE HCL 5 MG TABLET 10 MG PO (09:07)
[2023-10-07] MEDS: CITALOPRAM HYDROBROMIDE 20 MG TABLET PO (09:07)
--- NOTE | 2023-10-07 09:16 | P.HP_ITS ---
H&P: HPI History of Present Illness Chief complaint: FALL Narrative: Patient well-known to me from office care as well as following him at the nursing. [facility]. Was sent out to ER secondary to swelling, ER evaluation showed nothing remarkable other than acute kidney injury secondary to dehydration. Secondary to hyperglycemia. Patient was admitted to observation for workup and treatment of same Review of Systems ROS Status of ROS 10 or more systems reviewed and unremark able except as noted in history and below [facility] Medical History (Updated 10/06/23 @ 21:09 by Nicolas Camacho MD) Dehydration ?E86.0 - Dehydration (ICD-10) Adult failure to thrive ?R62.7 - Adult failure to thrive (ICD-10) Acute UTI ?N39.0 - Urinary tract infection, site not specified (ICD-10) Hydroureteronephrosis ?N13.30 - Unspecified hydronephrosis (ICD-10) Acute renal injury ?N17.9 - Acute kidney failure, unspecified (ICD-10) History of blood transfusion ?Z92.89 - Personal history of other medical treatment (ICD-10) Anemia ?D64.9 - Anemia, unspecified (ICD-10) Arthritis ?M19.90 - Unspecified osteoarthritis, unspecified site (ICD-10) Asthma ?J45.909 - Unspecified asthma, uncomplicated (ICD-10) Pneumonia ?J18.9 - Pneumonia, unspecified organism (ICD-10) Tremor ?R25.1 - Tremor, unspecified (ICD-10) Amputation toe ?S98.139A - Complete traumatic amputation of one unspecified lesser toe, initial encounter (ICD-10) Abnormal TRUS (transrectal ultrasound), prostate ?R93.89 - Abnormal findings on diagnostic imaging of other specified body structures (ICD-10) Elevated PSA ?R97.20 - Elevated prostate specific antigen [PSA] (ICD-10) Urinary tract infection ?N39.0 - Urinary tract infection, site not specified (ICD-10) Ulcer of gastric fundus ?K25.9 - Gastric ulcer, unspecified as acute or chronic, without hemorrhage or perforation (ICD-10) Seasonal allergic rhinitis ?J30.2 - Other seasonal allergic rhinitis (ICD-10) Kidney stones ?N20.0 - Calculus of kidney (ICD-10) Glucosuria ?R81 - Glycosuria (ICD-10) H/O esophageal reflux ?Z87.19 - Personal history of other diseases of the digestive system (ICD-10) Diabetes ?E11.9 - Type 2 diabetes mellitus without complications (ICD-10) Atrial fibrillation ?I48.91 - Unspecified atrial fibrillation (ICD-10) Mixed incontinence ?N39.46 - Mixed incontinence (ICD-10) Prostate cancer ?C61 - Malignant neoplasm of prostate (ICD-10) Pacemaker ?Z95.0 - Presence of cardiac pacemaker (ICD-10) Surgical History (Updated 08/30/23 @ 11:53 by Gracie Cabral) History of esophagogastroduodenoscopy ?Z98.890 - Other specified postprocedural states (ICD-10) History of colonoscopy ?Z98.890 - Other specified postprocedural states (ICD-10) History of arthroscopy of knee ?Z98.890 - Other specified postprocedural states (ICD-10) History of ear surgery ?Z98.890 - Other specified postprocedural states (ICD-10) H/O hand surgery ?Z98.890 - Other specified postprocedural states (ICD-10) H/O wrist surgery ?Z98.890 - Other specified postprocedural states (ICD-10) H/O cataract extraction ?Z98.49 - Cataract extraction status, unspecified eye (ICD-10) H/O prostate biopsy ?Z98.890 - Other specified postprocedural states (ICD-10) H/O lithotripsy ?Z98.890 - Other specified postprocedural states (ICD-10) H/O radical prostatectomy ?Z90.79 - Acquired absence of other genital organ(s) (ICD-10) Family History (Updated 08/21/23 @ 10:37 by Le Mata NP) Other Alcoholism Family history of lung cancer Social History (Updated 09/11/23 @ 14:56 by Renetta Brewster) Within the past year, how often did you have a drink containing alcohol: never Score interpretation: A score less than 4 is consistent with normal alcohol consumption. Smoking status: Never smoker Non-prescribed substance use: denies use Highest level of school completed/degree received: high school graduate Are you now , , , , never or living with a partner: living with partner Do you think of yourself as: straight/heterosexual Gender Identity: male Meds Home Medications and Allergies Home Medications Medication Instructions Recorded Confirmed Type calcium carbonate 600 mg-vitamin 2 tab PO DAILY 08/21/23 10/06/23 History D3 5 mcg (200 unit) tablet cetirizine 10 mg tablet (All Day 10 mg PO .lunch PRN allergy 08/21/23 10/06/23 History Allergy (cetirizine)) symptoms cilostazol 50 mg tablet 50 mg PO BID 08/21/23 10/06/23 History diphenhydramine-acetaminophen 2 tab PO QPM PRN sleep 08/21/23 10/07/23 History ferrous sulfate 325 mg (65 mg 325 mg PO BID 08/21/23 10/06/23 History iron) tablet (Feosol) fluticasone propionate 50 2 spray intranasal Q12H 08/21/23 10/06/23 History mcg/actuation nasal spray,suspension insulin glargine 100 unit/mL (3 25 unit subcut DAILY 08/21/23 10/06/23 History mL) subcutaneous pen (Lantus Solostar U-100 Insulin) insulin lispro 100 unit/mL 1 sliding scale dose subcut TID 08/21/23 10/06/23 History subcutaneous pen (Humalog KwikPen (U-100) Insulin) lovastatin 40 mg tablet 80 mg PO DAILY 08/21/23 10/06/23 History magnesium 250 mg tablet 250 mg PO BID 08/21/23 10/06/23 History metformin 500 mg tablet,extended 1,000 mg PO DAILY 08/21/23 10/06/23 History release 24 hr metoprolol succinate 25 mg 25 mg PO DAILY 08/21/23 10/06/23 History tablet,extended release 24 hr midodrine 10 mg tablet 10 mg PO BID 08/21/23 10/06/23 History mirtazapine 45 mg tablet 45 mg PO QPM 08/21/23 10/06/23 History montelukast 10 mg tablet 10 mg PO DAILY 08/21/23 10/06/23 History multivitamin (Daily Multi-Vitamin 1 tab PO DAILY 08/21/23 10/06/23 History tablet) omeprazole 40 mg capsule,delayed 40 mg PO DAILY 08/21/23 10/06/23 History release sodium zirconium cyclosilicate 5 5 g PO .4 times weekly 08/21/23 10/06/23 History gram oral powder packet (Lokelma) citalopram 20 mg tablet (Celexa) 20 mg PO DAILY 09/06/23 10/06/23 History aspirin 325 mg tablet,delayed 325 mg PO DAILY 09/11/23 10/06/23 History release colesevelam 625 mg tablet 1,250 mg PO DAILY 09/11/23 10/06/23 History gabapentin 100 mg capsule 100 mg PO Q8H #90 caps 09/14/23 10/06/23 Rx tramadol 100 mg tablet 100 mg PO Q6H PRN pain #120 tabs 09/14/23 10/06/23 Rx alprazolam 1 mg tablet 1 mg PO TID 10/06/23 10/07/23 History nirmatrelvir 150 mg-ritonavir 100 See Rx Instructions PO .COMPLEX 10/06/23 10/06/23 History mg tablets in a dose pack (Paxlovid) colesevelam 625 mg tablet 625 mg PO BID 10/07/23 10/07/23 History Allergies Allergy/AdvReac Type Severity Reaction Status Date / Time amoxicillin [From Augmentin] Allergy Diarrhea Verified 10/06/23 19:37 canagliflozin [From Invokana] Allergy Unknown Verified 10/06/23 19:37 clavulanic acid Allergy Diarrhea Verified 10/06/23 19:37 [From Augmentin] hydroxyzine Allergy Anxiety Verified 10/06/23 19:37 levofloxacin Allergy joint pain Verified 10/06/23 19:37 mirabegron [From Myrbetriq] Allergy Unknown Verified 10/06/23 19:37 pioglitazone [From Actos] Allergy Abdominal Verified 10/06/23 19:37 Pain Exam Constitutional Vital Signs, click to edit/add: Last Vital Signs Temp 97.8 F 10/07/23 06:00 Pulse 69 10/07/23 06:00 Resp 16 10/07/23 06:00 BP 167/83 H 10/07/23 06:00 Pulse Ox 98 10/07/23 06:00 O2 Del Method Room Air 10/07/23 06:00 HENMT Common normals: oral mucous membranes not moist Chest Common normals: inspection of chest normal Respiratory Common normals: normal respiratory effort and no use of accessory muscles Cardio Common normals: regular rate and regular rhythm GI Common normals: Normal to inspection, nondistended, normoactive bowel sounds present (Suprapubic catheter) Results Labs Labs: Short CBC 10/06/23 Range/Units 19:32 WBC 7.7 (4.0-11.0) 10^3/uL Hgb 11.3 L (14.0-18.0) g/dL Hct 35.6 L (42.0-54.0) % Plt Count 225 (150-450) 10^3/uL BMP 10/06/23 10/07/23 19:32 04:00 Sodium 133 L 137 Potassium 5.7 H 5.3 H Chloride 100 103 Carbon Dioxide 26.0 26.5 BUN 95.0 H* 80.0 H* Creatinine 3.01 H 2.27 H Glucose 377 H 119 H Calcium 8.5 8.7 Cardiac Enzymes 10/07/23 Range/Units 04:00 Total Creatine Kinase 25 L (39-308) U/L Liver Function 10/06/23 10/07/23 Range/Units 19:32 04:00 Total Bilirubin 0.2 0.2 (0.2-1.0) mg/dL AST 10 L 9 L (15-37) U/L ALT 18 <6 L (16-63) U/L Alkaline Phosphatase 50 49 (46-116) U/L Albumin 3.0 L 3.1 L (3.4-5.0) g/dL Urine 10/06/23 Range/Units 19:30 Urine Color Lt. yellow (YELLOW) Urine Clarity Clear (CLEAR) Urine pH 6.0 (5.0-9.0) Ur Specific Adrian 1.015 (1.005-1.025) Urine Protein 30 A (NEG/TRACE) mg/dL Urine Glucose (UA) >=1000 A (NEGATIVE) mg/dL Assessment and Plan Assessment and Plan (1) Acute hyperkalemia: (2) Fall: Qualifiers: Encounter type: initial encounter Qualified Code(s): W19.XXXA - Unspecified fall, initial encounter (3) Acute UTI: (4) Weakness: (5) Acute hyperglycemia: (6) THOMAS (acute kidney injury): Plan Status post fall secondary to acute kidney injury and dehydration with resulting hyper tension uncontrolled as well as tachycardia, hyperkalemia, hypermagnesemia, uncontrolled diabetes mellitus-IV fluids, in the past fluid bolus seems to resolve his issue. Just does not take in enough fluids at [facility]. If improved later today assuming IV access can be obtained he could [facility]. Possible acute UTI-based on previous sensitivities will change antibiotics, Pseudomonas on previous Acute kidney injury-this is 2 times normal-IV fluids as outlined above Iron deficiency anemia monitor daily Hyperkalemia-improving, continue to monitor fluid resuscitation likely to improve Uncontrolled diabetes mellitus-insulin sliding scale Hypomagnesemia-DC supplementation and monitor daily Maintain patient observation, if able to be obtain IV access and can give IV fluids he can be transferred back to the rehab facility today. Otherwise may meet inpatient criteria secondary to all the above Urinary Catheter Management Urinary Catheter Management Suprapubic: Cath placed during this visit: no
[2023-10-07] MEDS: OMEPRAZOLE 40 MG CAPSULE.DR PO (10:43)
[2023-10-07] MEDS: FLUTICASONE PROPIONATE 50 MCG NASAL SPRAY 2 SPRAY NS (10:43)
[2023-10-07] MEDS: GABAPENTIN 100 MG CAPSULE PO ×2 (10:44→14:43)
[2023-10-07] MEDS: METFORMIN HCL 500 MG TAB.ER.24H 1000 MG PO (10:44)
[2023-10-07 11:03] LABS: Glucometer 321 mg/dL (74-106)
[2023-10-07] MEDS: CIPROFLOXACIN IN 5 % DEXTROSE 400 MG/200 ML PIGGYBACK 200 MG IV (11:15)
[2023-10-07] MEDS: 0.9 % SODIUM CHLORIDE 1,000 ML 1000 ML IV (11:16)
[2023-10-07] MEDS: INSULIN ASPART 300 UNIT/3 ML PEN SUBQ (12:16)
[2023-10-07 14:00] VITALS: BP 129/76; PULSE 80; RESP 18; TEMP 35.8; O2SAT 96
[2023-10-07] MEDS: ALPRAZOLAM 1 MG TABLET PO (14:43)
== END 2023-10-07 14:25 ==
LOC: ER 22:50 → MS 10-07 12:41
PROVIDERS: Internal Medicine; Admitting Provider Family Medicine; Emergency Provider Student in an Organized Health Care Education/Training Program; PCP Family Medicine; Visit Provider Family Medicine
DX: N17.9 Acute kidney failure, unspecified (principal); E86.0 Dehydration; E11.65 Type 2 diabetes mellitus with hyperglycemia; T83.510A Infection and inflammatory reaction due to cystostomy catheter, initial encounter; N39.0 Urinary tract infection, site not specified; E87.5 Hyperkalemia; D50.9 Iron deficiency anemia, unspecified; R53.1 Weakness; E83.42 Hypomagnesemia; I48.91 Unspecified atrial fibrillation; I13.0 Hypertensive heart and chronic kidney disease with heart failure and stage 1 through stage 4 chronic kidney disease, or unspecified chronic kidney disease; E11.22 Type 2 diabetes mellitus with diabetic chronic kidney disease; N18.30 Chronic kidney disease, stage 3 unspecified; E11.40 Type 2 diabetes mellitus with diabetic neuropathy, unspecified; I73.9 Peripheral vascular disease, unspecified; K21.9 Gastro-esophageal reflux disease without esophagitis; I50.9 Heart failure, unspecified; S51.011A Laceration without foreign body of right elbow, initial encounter; W19.XXXA Unspecified fall, initial encounter; J45.909 Unspecified asthma, uncomplicated; M47.812 Spondylosis without myelopathy or radiculopathy, cervical region; K58.0 Irritable bowel syndrome with diarrhea; B96.5 Pseudomonas (aeruginosa) (mallei) (pseudomallei) as the cause of diseases classified elsewhere; B95.2 Enterococcus as the cause of diseases classified elsewhere; Z87.01 Personal history of pneumonia (recurrent); Z89.429 Acquired absence of other toe(s), unspecified side; Z87.442 Personal history of urinary calculi; Z95.0 Presence of cardiac pacemaker; Z85.46 Personal history of malignant neoplasm of prostate; Z90.79 Acquired absence of other genital organ(s); Z98.49 Cataract extraction status, unspecified eye; Z98.890 Other specified postprocedural states; Z79.899 Other long term (current) drug therapy; Z96.0 Presence of urogenital implants; Z79.4 Long term (current) use of insulin; Z79.84 Long term (current) use of oral hypoglycemic drugs; Z79.82 Long term (current) use of aspirin; Z86.16 Personal history of COVID-19
CPT/HCPCS: 36415; 70450; 72125; 80053; 81001; 82306; 82550; 82607; 82746; 82948; 83735; 85025; 87086; 87150; 87186; 93005; 96365; 96366; 99285; G0378; Q3014

== ENCOUNTER 2023-10-10 10:05 | Inpatient (IN) | payer MEDICARE, BC, SELFPAY ==
[2023-10-10] VITALS (126 sets, daily range): BP systolic 49–198; BP diastolic 33–172; PULSE 80–121; RESP 14–34; TEMP 36.6–37.3; O2SAT 75–100; BMI 29.9; BMI 23.3
--- NOTE | 2023-10-10 10:08 | ED_ITS ---
HPI - General Adult General Chief complaint: Altered Mental Status Stated complaint: UTI, CONFUSION, COVID+ Time Seen by Provider: 10/10/23 10:07 History of Present Illness HPI narrative: Patient is a 83-year-old male who is presenting to the Emergency Room with chief complaint of shortness of breath, difficulty breathing, change in mental status, dehydration, low blood pressure. Patient has his eyes closed but will open them to name. Patient will answer in one or 2 word answers, patient is following commands. GCS of 13, 1 for eyes closed, 1 for speech ( which could be secondary to dry mouth) patient is moaning when IV is trying to be established and ABG. Patient has a suprapubic catheter. Per PCP, Dr. Walton, patient has a very resistant urinary tract infection. Patient is a full code. Patient blood sugar was normal. Patient arrives hypotensive. Minimal information was obtained from the patient, a lot of the review of systems is obtained from EMS along with report from nursing facility. Patient has a pacemaker/defibrillator. Through chart review, patient's PCP is Dr. Walton, patient has past medical history of chronic urinary tract infection with suprapubic catheter, chronic kidney disease, congestive heart failure, type 2 diabetes, spinal stenosis, . All systems are negative except as noted/marked. All systems reviewed and otherwise negative. . Nurses note and vital signs reviewed and patient is not hypoxic. General: The patient appears Moderate distress secondary to probable sepsis, hypoxia.. Patient is resting uncomfortably on cart. Patient is toxic, lethargic. Skin: Warm, dry, no pallor noted. There is no rash noted. No petechiae, purpura. Head: Normocephalic, atraumatic Eye: Normal conjunctiva, no drainage, EOMI. PERRL Ears, Nose, Mouth, and Throat: oral mucosa is Very dry. Cardiovascular: tachycardia paced Rate and Rhythm, no murmur, gallop, rub. Respiratory: Patient is in Mild distress, no accessory muscle use, lungs are clear to auscultation, no wheezing, rales or rhonchi Back: non-tender, no CVA tenderness bilaterally to percussion. No CT LS midline pain GI: soft, no tenderness to palpation, no masses appreciated. No rebound, guarding, or rigidity noted. No flank pain bilateral, No distention Musculoskeletal: Patient has full range of motion of all of the extremities, no motor, sensory, or focal neurological deficits, Patient is sluggish secondary to difficulty breathing, lethargic, probably toxic. Patient has a leg bag to his left leg, urine looks clear. Nursing staff sitting at smells foul. Neurological: A&O x1, Patient is speaking in one or 2 words; GCS Psychiatric: Cooperative, Patient is following commands. Related Data Home Medications Medication Instructions Recorded Confirmed calcium carbonate 600 mg-vitamin 2 tab PO DAILY 08/21/23 10/10/23 D3 5 mcg (200 unit) tablet cetirizine 10 mg tablet (All Day 10 mg PO .lunch PRN allergy 08/21/23 10/10/23 Allergy (cetirizine)) symptoms cilostazol 50 mg tablet 50 mg PO BID 08/21/23 10/10/23 diphenhydramine-acetaminophen 2 tab PO QPM PRN sleep 08/21/23 10/10/23 ferrous sulfate 325 mg (65 mg 325 mg PO BID 08/21/23 10/10/23 iron) tablet (Feosol) fluticasone propionate 50 2 spray intranasal Q12H 08/21/23 10/10/23 mcg/actuation nasal spray,suspension insulin glargine 100 unit/mL (3 25 unit subcut DAILY 08/21/23 10/10/23 mL) subcutaneous pen (Lantus Solostar U-100 Insulin) insulin lispro 100 unit/mL 1 sliding scale dose subcut TID 08/21/23 10/10/23 subcutaneous pen (Humalog KwikPen (U-100) Insulin) lovastatin 40 mg tablet 80 mg PO DAILY 08/21/23 10/10/23 metformin 500 mg tablet,extended 1,000 mg PO DAILY 08/21/23 10/10/23 release 24 hr metoprolol succinate 25 mg 25 mg PO DAILY 08/21/23 10/10/23 tablet,extended release 24 hr midodrine 10 mg tablet 10 mg PO BID 08/21/23 10/10/23 mirtazapine 45 mg tablet 45 mg PO QPM 08/21/23 10/10/23 montelukast 10 mg tablet 10 mg PO DAILY 08/21/23 10/10/23 multivitamin (Daily Multi-Vitamin 1 tab PO DAILY 10/31/23 12/20/23 tablet) omeprazole 40 mg capsule,delayed 40 mg PO DAILY 08/21/23 10/10/23 release sodium zirconium cyclosilicate 5 5 g PO .4 times weekly 08/21/23 10/10/23 gram oral powder packet (Lokelma) citalopram 20 mg tablet (Celexa) 20 mg PO DAILY 09/06/23 10/10/23 aspirin 325 mg tablet,delayed 325 mg PO DAILY 09/11/23 10/10/23 release colesevelam 625 mg tablet 1,250 mg PO DAILY 09/11/23 10/10/23 alprazolam 1 mg tablet 1 mg PO TID 10/06/23 10/10/23 nirmatrelvir 150 mg-ritonavir 100 See Rx Instructions PO .COMPLEX 10/06/23 10/10/23 mg tablets in a dose pack (Paxlovid) ondansetron 4 mg disintegrating 4 mg translingual Q6H 10/10/23 10/10/23 tablet Previous Rx's Medication Instructions Recorded gabapentin 100 mg capsule 100 mg PO Q8H #90 caps 09/14/23 tramadol 100 mg tablet 100 mg PO Q6H PRN pain #120 tabs 09/14/23 Allergies Allergy/AdvReac Type Severity Reaction Status Date / Time amoxicillin [From Augmentin] Allergy Diarrhea Verified 10/06/23 19:37 canagliflozin [From Invokana] Allergy Unknown Verified 10/06/23 19:37 clavulanic acid Allergy Diarrhea Verified 10/06/23 19:37 [From Augmentin] hydroxyzine Allergy Anxiety Verified 10/06/23 19:37 levofloxacin Allergy joint pain Verified 10/06/23 19:37 mirabegron [From Myrbetriq] Allergy Unknown Verified 10/06/23 19:37 pioglitazone [From Actos] Allergy Abdominal Verified 10/06/23 19:37 Pain PFSH PFSH Medical History (Updated 10/10/23 @ 13:53 by Jose Aguilar MD) Dehydration ?E86.0 - Dehydration (ICD-10) Adult failure to thrive ?R62.7 - Adult failure to thrive (ICD-10) Acute UTI ?N39.0 - Urinary tract infection, site not specified (ICD-10) Hydroureteronephrosis ?N13.30 - Unspecified hydronephrosis (ICD-10) Acute renal injury ?N17.9 - Acute kidney failure, unspecified (ICD-10) History of blood transfusion ?Z92.89 - Personal history of other medical treatment (ICD-10) Anemia ?D64.9 - Anemia, unspecified (ICD-10) Arthritis ?M19.90 - Unspecified osteoarthritis, unspecified site (ICD-10) Asthma ?J45.909 - Unspecified asthma, uncomplicated (ICD-10) Pneumonia ?J18.9 - Pneumonia, unspecified organism (ICD-10) Tremor ?R25.1 - Tremor, unspecified (ICD-10) Amputation toe ?S98.139A - Complete traumatic amputation of one unspecified lesser toe, initial encounter (ICD-10) Abnormal TRUS (transrectal ultrasound), prostate ?R93.89 - Abnormal findings on diagnostic imaging of other specified body structures (ICD-10) Elevated PSA ?R97.20 - Elevated prostate specific antigen [PSA] (ICD-10) Urinary tract infection ?N39.0 - Urinary tract infection, site not specified (ICD-10) Ulcer of gastric fundus ?K25.9 - Gastric ulcer, unspecified as acute or chronic, without hemorrhage or perforation (ICD-10) Seasonal allergic rhinitis ?J30.2 - Other seasonal allergic rhinitis (ICD-10) Kidney stones ?N20.0 - Calculus of kidney (ICD-10) Glucosuria ?R81 - Glycosuria (ICD-10) H/O esophageal reflux ?Z87.19 - Personal history of other diseases of the digestive system (ICD-10) Diabetes ?E11.9 - Type 2 diabetes mellitus without complications (ICD-10) Atrial fibrillation ?I48.91 - Unspecified atrial fibrillation (ICD-10) Mixed incontinence ?N39.46 - Mixed incontinence (ICD-10) Prostate cancer ?C61 - Malignant neoplasm of prostate (ICD-10) Pacemaker ?Z95.0 - Presence of cardiac pacemaker (ICD-10) Surgical History (Updated 08/30/23 @ 11:53 by Gracie Cabral) History of esophagogastroduodenoscopy ?Z98.890 - Other specified postprocedural states (ICD-10) History of colonoscopy ?Z98.890 - Other specified postprocedural states (ICD-10) History of arthroscopy of knee ?Z98.890 - Other specified postprocedural states (ICD-10) History of ear surgery ?Z98.890 - Other specified postprocedural states (ICD-10) H/O hand surgery ?Z98.890 - Other specified postprocedural states (ICD-10) H/O wrist surgery ?Z98.890 - Other specified postprocedural states (ICD-10) H/O cataract extraction ?Z98.49 - Cataract extraction status, unspecified eye (ICD-10) H/O prostate biopsy ?Z98.890 - Other specified postprocedural states (ICD-10) H/O lithotripsy ?Z98.890 - Other specified postprocedural states (ICD-10) H/O radical prostatectomy ?Z90.79 - Acquired absence of other genital organ(s) (ICD-10) Family History (Updated 08/21/23 @ 10:37 by Le Mata NP) Other Alcoholism Family history of lung cancer Social History (Updated 09/11/23 @ 14:56 by Renetta Brewster) Within the past year, how often did you have a drink containing alcohol: never Score interpretation: A score less than 4 is consistent with normal alcohol consumption. Smoking status: Former smoker Non-prescribed substance use: denies use Highest level of school completed/degree received: high school graduate Are you now , , , , never or living with a partner: living with partner Do you think of yourself as: straight/heterosexual Gender Identity: male Exam Constitutional Vital Signs, click to edit/add: Last Vital Signs Temp 99.1 F 10/10/23 10:15 Pulse 104 H 10/10/23 13:00 Resp 17 10/10/23 13:00 BP 122/60 10/10/23 13:02 Pulse Ox 92 L 10/10/23 13:00 O2 Del Method Nonrebreather 10/10/23 12:33 O2 Flow Rate 6 10/10/23 10:57 Course Vital Signs Vital signs: Vital Signs Temperature 99.1 F 10/10/23 10:15 Pulse Rate 120 H 10/10/23 10:15 Respiratory Rate 26 H 10/10/23 10:15 Blood Pressure 92/60 10/10/23 10:15 Pulse Oximetry 91 L 10/10/23 10:15 Oxygen Delivery Method Nasal Cannula, Nonrebreather 10/10/23 10:15 Oxygen Delivery Flow Rate 15 10/10/23 10:15 Temperature 99.1 F 10/10/23 10:15 Pulse Rate 104 H 10/10/23 13:00 Respiratory Rate 17 10/10/23 13:00 Blood Pressure 122/60 10/10/23 13:02 Pulse Oximetry 92 L 10/10/23 13:00 Oxygen Delivery Method Nonrebreather 10/10/23 12:33 Oxygen Delivery Flow Rate 6 10/10/23 10:57 Medical Decision Making MDM Narrative Medical decision making narrative: Patient was admitted to the hospital on October 06, 2023 and patient was discharged on summer. There is been a significant amount of time spent with this patient And family. Patient initial chest x-ray showed some haziness to the right lower lobe, no significant effusion, no significant infiltrate noted. Patient's EKG was tachycardic, paced rhythm. Patient's Was initially given 2 DuoNeb breathing treatments along with an ABG. Patient's ABG was within normal limits. Patient was given 2 L of lactated Ringer's which helped significantly with patient's mentation, and initially was helping with his blood pressure as well. Sepsis workup has been initiated. Patient has chronic kidney disease, patient's BUN and creatinine were 77/3.2. Patient has been given IV fluids for this. Patient troponin showed no acute findings. A copy of the CTA of the chest was given to patient and family. Patient and family understand his lab testing, CTA testing, IV antibiotics, IV pressors, and vapotherm. 1230 Patient was on a 15 L nonrebreather,Patient was becoming more hypoxic in the low to mid 80s. The vapotherm has been started. I had a 10 minute discussion with patient's son and at bedside, along with Ester who is patient's [id number] who is the power of civil attorney. Ultimately patient does not want to be intubated, but they do want CPR, defibrillation and IV medication to help if needed. I had a lengthy conversation with them stating that typically if somebody is in cardiac arrest, they would need to be intubated or have aggressive breathing measures done with this as well. Patient is agreeing to BiPAP or CPAP, [id number] if needed during resuscitative efforts. This was agreed upon by patient, power of civil attorney [id number] Ester, and son. Dr. Walton is aware of this discussion. Family is not ready to say no to any type of effort of chest compressions, IV medication or defibrillation. They also mention the patient blood pressure normally runs low With systolic in the 90s/50s over 100s/60s. Patient is currently on IV Levophed, along with Zyvox, Zosyn, and IV fluids are being given. Patient is critical, family is aware of this. Patient does not want to be on a ventilator. Critical care time 55 minutes exclusive from separate billable procedures that were performed. The following was considered in the determination of critical care but not limited to the level of medical decision making, intensive cardiac and/or respiratory monitoring, frequent vital sign monitoring, evaluation of laboratory studies, evaluation of radiographic studies, oxygen monitoring, and constant monitoring and speaking to family at bedside. For discussions of the telephone with Dr. Walton, lengthy conversation with family at bedside. Lab Data Labs: Lab Results 10/10/23 10/10/23 10/10/23 Range/Units 10:11 10:20 10:33 WBC 9.9 (4.0-11.0) 10^3/uL RBC 3.63 L (4.70-6.10) 10^6/uL Hgb 11.4 L (14.0-18.0) g/dL Hct 35.8 L (42.0-54.0) % MCV 98.6 H (80.0-94.0) fL MCH 31.4 (25.9-34.0) pg MCHC 31.8 (29.9-35.2) g/dL RDW 13.6 (11.0-15.0) % Plt Count 185 (150-450) 10^3/uL MPV 11.2 (9.5-13.5) fL Neut % (Auto) 87.1 H (43.0-75.0) % Lymph % (Auto) 9.0 L (20.5-60.0) % [place] % (Auto) 3.3 (1.7-12.0) % Eos % (Auto) 0.0 L (0.9-7.0) % Baso % (Auto) 0.1 L (0.2-2.0) % Neut # (Auto) 8.7 H (1.4-6.5) 10^3/uL Lymph # (Auto) 0.9 L (1.2-3.8) 10^3/uL [place] # (Auto) 0.3 (0.3-0.8) 10^3/uL Eos # (Auto) 0.0 (0.0-0.7) 10^3/uL Baso # (Auto) 0.0 (0.0-0.1) 10^3/uL Abs Immat Gran (auto) 0.05 H (0.00-0.03) 10^3/uL Imm/Tot Granulo (auto) 0.5 (0.0-0.5) % PT 10.9 (9.0-11.6) sec INR 1.03 ABG pH (7.350-7.450) ABG pCO2 (35.0-45.0) mmHg ABG pO2 (80.0-100.0) mmHg ABG HCO3 (22.0-26.0) mmol/L ABG O2 Saturation % ABG Base Excess (-2.0-2.0) mmol/L Ronald Test (POSITIVE) O2 Liters/Min FiO2 % Sodium 139 (136-145) mmol/L Potassium 5.0 (3.5-5.1) mmol/L Chloride 104 (98-107) mmol/L Carbon Dioxide 23.9 (21.0-32.0) mmol/L Anion Gap 16.1 BUN 76.0 H* (7.0-18.0) mg/dL Creatinine 3.27 H (0.70-1.30) mg/dL Est GFR ( Amer) 22 L (>=60) Est GFR (Non-Af Amer) 18 L (>=60) BUN/Creatinine Ratio 23.2 Glucose 176 H (74-106) mg/dL Lactate 1.6 (0.4-2.0) mmol/L Calcium 8.8 (8.5-10.1) mg/dL Magnesium 2.0 (1.8-2.4) mg/dL Total Bilirubin 0.3 (0.2-1.0) mg/dL AST 14 L (15-37) U/L ALT 13 L (16-63) U/L Alkaline Phosphatase 51 (46-116) U/L Troponin I High Sens 17.1 (4.0-76.1) pg/mL NT-Pro-B Natriuret Pep 3200.0 H* (<=1800.0) pg/mL Total Protein 6.1 L (6.4-8.2) g/dL Albumin 2.0 L (3.4-5.0) g/dL Globulin 4.1 g/dL Albumin/Globulin Ratio 0.5 Procalcitonin 2.95 H (0.00-0.50) ng/mL Urine Color Yellow (YELLOW) Urine Clarity Cloudy A (CLEAR) Urine pH 5.5 (5.0-9.0) Ur Specific [place] 1.025 (1.005-1.025) Urine Protein 30 A (NEG/TRACE) mg/dL Urine Glucose (UA) Negative (NEGATIVE) mg/dL Urine Ketones Trace A (NEGATIVE) mg/dL Urine Occult Blood Large A (NEGATIVE) Urine Nitrite Negative (NEGATIVE) Urine Bilirubin Negative (NEGATIVE) Urine Urobilinogen 0.2 (0.2-1.0) EU/dL Ur Leukocyte Esterase Small A (NEGATIVE) Urine RBC 2-5 A (0-2) #/HPF Urine WBC 2-5 A (NONE SEEN) #/HPF Ur Squamous Epith Cells Rare (NONE/RARE) #/LPF Urine Crystals Seen A (None Seen) #/HPF Amorphous Sediment Few Urine Bacteria Large A (NONE SEEN) #/HPF Urine Casts None seen (NONE SEEN) #/LPF Urine Mucus None seen (NONE SEEN) Urine Yeast Seen A (NONE SEEN) POC Glucose 183 H (74-106) mg/dL 10/10/23 Range/Units 10:51 WBC (4.0-11.0) 10^3/uL RBC (4.70-6.10) 10^6/uL Hgb (14.0-18.0) g/dL Hct (42.0-54.0) % MCV (80.0-94.0) fL MCH (25.9-34.0) pg MCHC (29.9-35.2) g/dL RDW (11.0-15.0) % Plt Count (150-450) 10^3/uL MPV (9.5-13.5) fL Neut % (Auto) (43.0-75.0) % Lymph % (Auto) (20.5-60.0) % [place] % (Auto) (1.7-12.0) % Eos % (Auto) (0.9-7.0) % Baso % (Auto) (0.2-2.0) % Neut # (Auto) (1.4-6.5) 10^3/uL Lymph # (Auto) (1.2-3.8) 10^3/uL [place] # (Auto) (0.3-0.8) 10^3/uL Eos # (Auto) (0.0-0.7) 10^3/uL Baso # (Auto) (0.0-0.1) 10^3/uL Abs Immat Gran (auto) (0.00-0.03) 10^3/uL Imm/Tot Granulo (auto) (0.0-0.5) % PT (9.0-11.6) sec INR ABG pH 7.353 (7.350-7.450) ABG pCO2 39.6 (35.0-45.0) mmHg ABG pO2 82.8 (80.0-100.0) mmHg ABG HCO3 22.0 (22.0-26.0) mmol/L ABG O2 Saturation 96.9 % ABG Base Excess -3.6 L (-2.0-2.0) mmol/L Ronald Test Pos (POSITIVE) O2 Liters/Min 15 FiO2 100 % Sodium (136-145) mmol/L Potassium (3.5-5.1) mmol/L Chloride (98-107) mmol/L Carbon Dioxide (21.0-32.0) mmol/L Anion Gap BUN (7.0-18.0) mg/dL Creatinine (0.70-1.30) mg/dL Est GFR ( Amer) (>=60) Est GFR (Non-Af Amer) (>=60) BUN/Creatinine Ratio Glucose (74-106) mg/dL Lactate (0.4-2.0) mmol/L Calcium (8.5-10.1) mg/dL Magnesium (1.8-2.4) mg/dL Total Bilirubin (0.2-1.0) mg/dL AST (15-37) U/L ALT (16-63) U/L Alkaline Phosphatase (46-116) U/L Troponin I High Sens (4.0-76.1) pg/mL NT-Pro-B Natriuret Pep (<=1800.0) pg/mL Total Protein (6.4-8.2) g/dL Albumin (3.4-5.0) g/dL Globulin g/dL Albumin/Globulin Ratio Procalcitonin (0.00-0.50) ng/mL Urine Color (YELLOW) Urine Clarity (CLEAR) Urine pH (5.0-9.0) Ur Specific [place] (1.005-1.025) Urine Protein (NEG/TRACE) mg/dL Urine Glucose (UA) (NEGATIVE) mg/dL Urine Ketones (NEGATIVE) mg/dL Urine Occult Blood (NEGATIVE) Urine Nitrite (NEGATIVE) Urine Bilirubin (NEGATIVE) Urine Urobilinogen (0.2-1.0) EU/dL Ur Leukocyte Esterase (NEGATIVE) Urine RBC (0-2) #/HPF Urine WBC (NONE SEEN) #/HPF Ur Squamous Epith Cells (NONE/RARE) #/LPF Urine Crystals (None Seen) #/HPF Amorphous Sediment Urine Bacteria (NONE SEEN) #/HPF Urine Casts (NONE SEEN) #/LPF Urine Mucus (NONE SEEN) Urine Yeast (NONE SEEN) POC Glucose (74-106) mg/dL ECG Data Attestation: I personally reviewed and interpreted this ECG as follows: (EKG interpretation. Paced rhythm at 120 beats a minute. Left axis deviation. When compared to EKG on 10/06/2023, patient has similar EKG changes today when compared to EKG on 10/06/2023) Discharge Plan Discharge Chief Complaint: Altered Mental Status Clinical Impression: Hypoxia, Weakness, Hypotension, Acute respiratory distress, Bilateral pneumonia, Pulmonary edema, Counseling regarding end of life decision making, De hydration, Chronic kidney disease, Chronic UTI Patient Disposition: Admitted As Inpatient Discharge Date/Time: 10/10/23 13:32
--- NOTE | 2023-10-10 10:11 | ECG_ITS ---
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
--- NOTE | 2023-10-10 10:13 | CT_ITS ---
[address] [address] Patient Name: RALPH GARG MRN: [id number] date: 1940 Sex: M Assigned Patient Location: ER Current Patient Location: ER Accession/Order Number: [id number] Exam Date: 10/10/2023 11:20 Report Date: 10/10/2023 11:55 At the request of: SUDHIR RAINES Procedure: CT angio chest EXAM: CT angio chest HISTORY: sob COMPARISON: 10/10/2023 TECHNIQUE: Axial CT images were obtained of the chest with intravenous contrast in the pulmonary arterial phase. Multiplanar, MIP and 3D reconstructions were performed. CHEST FINDINGS: Lungs/Pleura: Large consolidative opacities present dependently in the lung turner bilaterally. Debris/mucus is present in the distal airways. No pleural effusion or pneumothorax. Pulmonary Arteries: No evidence of pulmonary embolus. Cardiovascular: The heart is enlarged. There is a left chest ICD with leads in the right atrium and ventricle. The aorta is unremarkable. Pericardium: No effusion. Mediastinum: Unremarkable. Lymph Nodes: No lymph node enlargement by CT size criteria. Bones: No acute osseous abnormality. Soft tissues: Unremarkable. Upper Abdomen: Unremarkable. CT/CT angio chest IMPRESSION: 1. No pulmonary embolus identified. 2. Large consolidative opacities dependently in both lung turner, possibly due to pneumonia or aspiration. 3. Cardiomegaly with a left chest ICD. Electronically authenticated by: JANET EDMONDSON Date: 10/10/2023 11:55
--- OUTSIDE RECORDS SUMMARY | 2023-10-10 10:30 | XMS_ITS | CCD ---
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 Name Role Phone ILEANA RIMA Referring Unavailable HOY, FARZAD M Primary Care Unavailable ILEANA, RIMA Referring Unavailable HOY, FARZAD M Primary Care Unavailable NASH OMALLEY Referring Unavailable HOY, FARZAD M Primary Care Unavailable ILEANA, RIMA Referring Unavailable HOY, FARZAD M Primary Care Unavailable NASH OMALLEY Referring Unavailable HOY, FARZAD M Primary Care Unavailable VIDAL, KHASE A Referring Unavailable HOY, FARZAD M Primary Care Unavailable VIDAL, KHASE A Referring Unavailable HOY, FARZAD M Primary Care Unavailable VIDAL, KHASE A Referring Unavailable HOY, FARZAD M Primary Care Unavailable VIDAL, KHASE A Referring Unavailable HOY, FARZAD M Primary Care Unavailable VIDAL, KHASE A Referring Unavailable HOY, FARZAD M Primary Care Unavailable VIDAL, KHASE A Referring Unavailable HOY, FARZAD M Primary Care Unavailable VIDAL, KHASE A Referring Unavailable HOY, FARZAD M Primary Care Unavailable VIDAL, KHASE A Referring Unavailable HOY, FARZAD M Primary Care Unavailable VIDAL, KHASE A Referring Unavailable HOY, FARZAD M Primary Care Unavailable VIDAL, KHASE A Referring Unavailable HOY, FARZAD M Primary Care Unavailable VIDAL, KHASE A Referring Unavailable HOY, FARZAD M Primary Care Unavailable VIDAL, KHASE A Referring Unavailable HOY, FARZAD M Primary Care Unavailable VIDAL, KHASE A Referring Unavailable HOY, FARZAD M Primary Care Unavailable VIDAL, KHASE A Referring Unavailable HOY, FARZAD M Primary Care Unavailable VIDAL, KHASE A Referring Unavailable HOY, FARZAD M Primary Care Unavailable VIDAL, KHASE A Referring Unavailable HOY, FARZAD M Primary Care Unavailable VIDAL, KHASE A Referring Unavailable HOY, FARZAD M Primary Care Unavailable VIDAL, KHASE A Referring Unavailable HOY, FARZAD M Primary Care Unavailable VIDAL, KHASE A Referring Unavailable HOY, FARZAD M Primary Care Unavailable VIDAL, KHASE A Referring Unavailable HOY, FARZAD M Primary Care Unavailable Johnathany, Farzad Primary Care Physician WEST ., DR PANDA Attending Unavailable HOY ., DR PANDA Admitting Unavailable HOY ., DR PANDA Primary Care Unavailable HOY ., DR PANDA Consulting Unavailable KENT, DR KORI Murrell Consulting Unavailable NILA ., FARIDA Consulting Unavailable ROLANDA SHIELDS Consulting Unavailable LALA FERRERA Consulting Unavailable HOY ., DR PANDA Primary Care Unavailable NIA ROACH Consulting Unavailable MARKRAISA MCCULLOUGHINDA C Attending Unavailable MARK, NIA C Admitting Unavailable HOY ., DR PANDA Attending Unavailable HOY ., DR PANDA Admitting Unavailable HOY ., DR PANDA Primary Care Unavailable HOY ., DR PANDA Consulting Unavailable ZIEBER, DR VALENTÍN Velasquez Consulting Unavailable HOY ., DR PANDA Attending Unavailable HOY ., DR PANDA Admitting Unavailable HOY ., DR PANDA Primary Care Unavailable HOY ., DR PANDA Consulting Unavailable HOY ., DR PANDA Primary Care Unavailable MARK, NIA C Consulting Unavailable MARK, NIA C Attending Unavailable MARK, NIA C Admitting Unavailable ZIEBER, DR VALENTÍN Velasquez Consulting Unavailable HOY ., DR PANDA Primary Care Unavailable PAY ., DR PEGUERO Attending Unavailable PAY ., DR PEGUERO Admitting Unavailable PAY ., DR PEGUERO Consulting Unavailable DEBO, JANET Consulting Unavailable HOY ., DR PANDA Attending Unavailable HOY ., DR PANDA Admcadence Unavailable HOY ., DR PANDA Primary Care Unavailable HOY ., DR PANDA Consulting Unavailable HAY ., DR BARNARD Consulting Unavailable INDIGO MONTANO Consulting Unavailable HOY ., DR PANDA Attending Unavailable HOY ., DR PANDA Admcadence Unavailable HOY ., DR PANDA Primary Care Unavailable VIDAL, KHASE A Referring Unavailable HOY, FARZAD M Primary Care Unavailable VALENCIA WALSH Attending Unavailable Ozzy CONTEH Attending Unavailable Ozzy CONTEH Attending Unavailable CONTEH, Ozzy Velasquez Attending Unavailable CONTEHOzzy R Admitting Unavailable Ozzy CONTEH Attending Unavailable CONTEH, Ozzy R Referring Unavailable CONTEH, Ozzy R Attending Unavailable CONTEH, Ozzy R Attending Unavailable CONTEH, Ozzy R Attending Unavailable APLINGGINNY Attending Unavailable ALEXANDER, GEORGIE Attending Unavailable FELIX SOTO Attending Unavailable NIA ROACH Attending Unavailable UDAY CASTRO Referring Unavailable UDAY CASTRO Referring Unavailable ELYSE DENSON Attending Unavailable NIA ROACH Attending Unavailable MOELYSE MCCULLOUGH Attending Unavailable GEORGIE MUNOZ Attending Unavailable UDAY CASTRO Referring Unavailable Allergies Allergy Classification Reported Allergen(s) Allergy Type Date of Onset Reaction(s) Facility (7 sources) Amoxicillin; Translations: [amoxicillin] Drug Allergy Mild (qualifier value) [facility] (7 sources) Amoxicillin / Clavulanate; Translations: [amoxicillin-cla vulanate] Drug Allergy Diarrhea (finding) [facility] (8 sources) levoFLOXacin; Translations: [levofloxacin] Drug Allergy 8 Mild (qualifier value) [facility] (8 sources) pioglitazone; Translations: [pioglitazone] Drug Allergy 8 Mild (qualifier value) [facility] (1 source) Amoxicillin / Clavulanate Drug Allergy [facility] (2 sources) levoFLOXacin Drug Allergy 4 [facility] (1 source) pioglitazone Drug Allergy [facility] (1 source) hydrOXYzine; Translations: [HYDROXYZINE] Drug Allergy 3 [facility] (1 source) AMOXICILLIN-POT CLAVULANATE; Translations: [AMOXICILLIN-POT CLAVULANATE] Propensity to adverse reactions to drug (disorder) 8 [facility] Medications Current Medications Medication Drug Class(es) Dates Sig (Normalized) Sig (Original) Albuterol (5 sources) beta2-Adrenergic Agonist Start: 12-18-2022 albuterol Refills(s) 0 Start Date: 12/18/22 Status: Ordered ALPRAZolam 1 mg oral tablet (5 sources) Benzodiazepine Start: 12-18-2022 alprazolam 1 mg Tab Refills(s) 0 Start Date: 12/18/22 Status: Ordered aspirin 325 mg oral tablet (6 sources) Platelet Aggregation Inhibitor, Nonsteroidal Anti-inflammatory Drug Start: 12-12-2019 take 1 mg by mouth every four hours aspirin 325 mg Tab mg tab(s), Oral, q4hr, Refills(s) 0 Start Date: 12/12/19 Status: Ordered Lomotil (2 sources) Anticholinergic, Cholinergic Muscarinic Antagonist, Antidiarrheal Start: 12-11-2019 Lomotil Oral, QID, Refill(s) 0 Start Date: 12/11/19 Status: Ordered cilostazol 50 mg oral tablet (5 sources) Phosphodiesterase 3 Inhibitor Start: 12-18-2022 cilostazol 50 mg Tab Refills(s) 0 Start Date: 12/18/22 Status: Ordered citalopram 10 mg oral tablet (4 sources) Serotonin Reuptake Inhibitor Start: 06-18-2023 citalopram 10 mg Tab Refills(s) 0 Start Date: 06/18/23 Status: Ordered Welchol (6 sources) Bile Acid Sequestrant Start: 12-11-2019 Welchol Oral, Refills(s) 0 Start Date: 12/11/19 Status: Ordered fluticasone propionate 0.05 mg/actuat metered dose nasal spray (1 source) Corticosteroid Start: 12-11-2019 fluticasone 0.05 mg/inh Nasal Beatrice Nasal, Daily, Refill(s) 0 Start Date: 12/11/19 Status: Ordered fluticasone 0.05 mg/inh Nasal Beatrice (5 sources) Start: 12-11-2019 fluticasone 0.05 mg/inh Nasal Beatrice Nasal, Daily, Refill(s) 0 Start Date: 12/11/19 Status: Ordered furosemide 20 mg oral tablet (6 sources) Loop Diuretic Start: 12-11-2019 take 2 tablets by mouth once daily furosemide 20 mg Tab 40 mg = 2 tab(s), Oral, Daily, Refills(s) 0 Start Date: 12/11/19 Status: Ordered Start: 12-11-2019 take 1 mg by mouth once daily furosemide 20 mg Tab mg tab(s), Oral, Daily, Refills(s) 0 Start Date: 12/11/19 Status: Ordered gabapentin 100 mg oral capsule (5 sources) Anti-epileptic Agent Start: 12-18-2022 gabapentin 100 mg Cap Refills(s) 0 Start Date: 12/18/22 Status: Ordered Lantus (6 sources) Insulin Analog Start: 01-28-2021 Lantus SubCutaneous, Daily, Refills(s) 0 Start Date: 01/28/21 Status: Ordered Humalog (6 sources) Insulin Analog Start: 01-28-2021 Humalog SubCutaneous, Refills(s) 0 Start Date: 01/28/21 Status: Ordered Lovastatin (6 sources) HMG-CoA Reductase Inhibitor Start: 12-11-2019 lovastatin Oral, Refills(s) 0 Start Date: 12/11/19 Status: Ordered Magnesium Aspartate (6 sources) Start: 12-11-2019 take 1 mg by mouth twice daily magnesium aspartate mg, Oral, BID, Refills(s) 0 Start Date: 12/11/19 Status: Ordered metFORMIN (6 sources) Biguanide Start: 12-11-2019 metformin Oral, Refills(s) 0 Start Date: 12/11/19 Status: Ordered 24 hr metoprolol succinate 25 mg extended release oral tablet (6 sources) beta-Adrenergic Vilma Start: 12-11-2019 take 1 mg by mouth once daily metoprolol 25 mg ER Tab mg tab(s), Oral, Daily, Refills(s) 0 Start Date: 12/11/19 Status: Ordered midodrine hydrochloride 10 mg oral tablet (4 sources) alpha-Adrenergic Agonist Start: 06-18-2023 midodrine 10 mg oral tablet Refills(s) 0 Start Date: 06/18/23 Status: Ordered mirtazapine 45 mg oral tablet (5 sources) Start: 12-18-2022 mirtazapine 45 mg oral tablet Refills(s) 0 Start Date: 12/18/22 Status: Ordered montelukast 10 mg oral tablet (4 sources) Leukotriene Receptor Antagonist Start: 06-18-2023 montelukast 10 mg Tab Refills(s) 0 Start Date: 06/18/23 Status: Ordered Omeprazole (6 sources) Proton Pump Inhibitor Start: 12-11-2019 omeprazole Oral, Daily, Refills(s) 0 Start Date: 12/11/19 Status: Ordered Yupelri (1 source) Start: 12-18-2022 take 1 ug by inhalation once daily Yupelri mcg, Inhalation, Daily, Refills(s) 0 Start Date: 12/18/22 Status: Ordered Lokelma (5 sources) Start: 12-18-2022 Lokelma Oral, Refills(s) 0 Start Date: 12/18/22 Status: Ordered Super Calcium 600 + D3 400 (6 sources) Start: 12-12-2019 Super Calcium 600 + D3 400 Oral, BID, Refill(s) 0 Start Date: 12/12/19 Status: Ordered Tramadol (2 sources) Opioid Agonist Start: 12-11-2019 tramadol Oral, Refills(s) 0 Start Date: 12/11/19 Status: Ordered Vitamin D3 (2 sources) Start: 12-12-2019 Vitamin D3 Refills(s) 0 Start Date: 12/12/19 Status: Ordered Problems Active Problems Problem Classification Problem Date Documented Da te Episodic/Chronic Acute and unspecified renal failure (1 source) Acute kidney failure, unspecified; Translations: [ACUTE KIDNEY FAILURE UNSPECIFIED] Onset: 3 Episodic Calculus of urinary tract (20 sources) History of calculus of kidney; Translations: [Kidney stone] Onset: 3 08-06-2020 Episodic Cancer of prostate (6 sources) Malignant tumor of prostate 12-12-2019 Chronic Cancer of prostate (10 sources) History of malignant neoplasm of prostate; Translations: [Personal history of malignant neoplasm of prostate] Onset: 3 12-12-2019 Episodic Cardiac dysrhythmias (9 sources) Atrial fibrillation; Translations: [Unspecified atrial fibrillation] Onset: 3 12-11-2019 Chronic Chronic kidney disease (2 sources) Chronic kidney disease; Translations: [Chronic kidney disease, stage 3b] Onset: 3 Chronic ulcer of skin (2 sources) Non-pressure chronic ulcer of left heel and midfoot with unspecified severity; Translations: [Non-pressure chronic ulcer of other part of right foot with unspecified severity] Onset: 3 Chronic Conduction disorders (3 sources) Presence of cardiac pacemaker; Translations: [Encounter for adjustment and management of automatic implantable cardiac defibrillator] Onset: 3 Chronic Congestive heart failure; nonhypertensive (7 sources) Heart failure, unspecified; Translations: [Chronic systolic (congestive) heart failure] Onset: 3 Chronic Coronary atherosclerosis and other heart disease (2 sources) Atherosclerotic heart disease of eagle coronary artery without angina pectoris; Translations: [Atherosclerotic heart disease of eagle coronary artery without angina pectoris] Onset: 3 Chronic Deficiency and other anemia (1 source) Anemia in chronic kidney disease; Translations: [ANEMIA IN CHRONIC KIDNEY DISEASE] Onset: 3 Chronic Diabetes mellitus with complications (4 sources) Type 2 diabetes mellitus with diabetic chronic kidney disease; Translations: [Type 2 diabetes mellitus with diabetic polyneuropathy] Onset: 3 Chronic Diabetes mellitus without complication (7 sources) Type 2 diabetes mellitus; Translations: [Type 2 diabetes mellitus without complications] Onset: 3 12-11-2019 Chronic Diabetes mellitus without complication (6 sources) Glycosuria 12-11-2019 Episodic Disorders of lipid metabolism (9 sources) Hyperlipidemia; Translations: [Pure hypercholesterolemia, unspecified] Onset: 3 12-11-2019 Chronic E Codes: Fall (1 source) Fall on same level, unspecified, initial encounter; Translations: [FALL SAME LEVEL UNSPECIFIED INITIAL] Onset: 3 Episodic Esophageal disorders (6 sources) Gastroesophageal reflux disease 12-11-2019 Chronic Essential hypertension (7 sources) Hypertensive disorder; Translations: [Essential (primary) hypertension] Onset: 3 12-11-2019 Chronic Gastroduodenal ulcer (except hemorrhage) (6 sources) Gastric ulcer 12-11-2019 Chronic Genitourinary symptoms and ill-defined conditions (14 sources) Incontinence; Translations: [Male urinary stress incontinence] Onset: 3 08-06-2020 Chronic Genitourinary symptoms and ill-defined conditions (2 sources) Retention of urine; Translations: [Retention of urine, unspecified] Onset: 3 Episodic Hypertension with complications and secondary hypertension (1 source) Hypertensive heart and chronic kidney disease with heart failure and stage 1 through stage 4 chronic kidney disease, or unspecified chronic kidney disease; Translations: [HTN HRT CKD W/HF STAGE 1-4/UNS CKD] Onset: 3 Chronic Immunizations and screening for infectious disease (1 source) Encounter for immunization; Translations: [ENCOUNTER FOR IMMUNIZATION] Onset: 3 Episodic Malaise and fatigue (1 source) Weakness; Translations: [WEAKNESS] Onset: 3 Episodic Open wounds of extremities (1 source) Laceration without foreign body of left upper arm, initial encounter; Translations: [LACERATION W/O FB LT UP ARM INITIAL] Onset: 3 Episodic Other aftercare (1 source) terminal supervisor (current) use of aspirin; Translations: [DETENTION CURRENT USE OF ASPIRIN] Onset: 3 Episodic Other aftercare (1 source) terminal supervisor (current) use of insulin; Translations: [DETENTION CURRENT USE OF INSULIN] Onset: 3 Episodic Other aftercare (1 source) terminal supervisor (current) use of oral hypoglycemic drugs; Translations: [JAVA MANAGER USE ORAL HYPOGLYCEMIC DX] Onset: 3 Episodic Other aftercare (1 source) Other long term care social worker (current) drug therapy; Translations: [OTH JAVA MANAGER CURRENT DRUG THERAPY] Onset: 3 Episodic Other bone disease and musculoskeletal deformities (1 source) Acquired absence of other right toe(s); Translations: [ACQUIRED ABSENCE OTHER RIGHT TOES] Onset: 3 Episodic Other gastrointestinal disorders (2 sources) Personal history of other diseases of the digestive system; Translations: [Personal history of other diseases of the digestive system] Onset: 3 Episodic Other injuries and conditions due to external causes (1 source) Other specified injuries of head, initial encounter; Translations: [OTH SPEC INJURIES HEAD INITIAL ENC] Onset: 3 Episodic Other injuries and conditions due to external causes (1 source) History of falling; Translations: [HISTORY OF FALLING] Onset: 3 Episodic Other lower respiratory disease (1 source) Hypoxemia; Translations: [HYPOXEMIA] Onset: 3 Episodic Other lower respiratory disease (1 source) Wheezing; Translations: [WHEEZING] Onset: 3 Episodic Other lower respiratory disease (1 source) Shortness of breath; Translations: [SHORTNESS OF BREATH] Onset: 3 Episodic Other nervous system disorders (1 source) Other chronic pain; Translations: [OTHER CHRONIC PAIN] Onset: 3 Chronic Other nervous system disorders (2 sources) Other abnormalities of gait and mobility; Translations: [Other abnormalities of gait and mobility] Onset: 3 Episodic Other screening for suspected conditions (not mental disorders or infectious disease) (7 sources) Raised prostate specific antigen; Translations: [Other specified abnormal findings of blood chemistry] Onset: 3 12-12-2019 Episodic Other upper respiratory disease (6 sources) Rhinitis 12-11-2019 Chronic Pneumonia (except that caused by tuberculosis or sexually transmitted disease) (5 sources) Pneumonia, unspecified organism; Translations: [PNEUMONIA UNSPECIFIED ORGANISM] Onset: 3 Episodic Residual codes; unclassified (1 source) Acquired absence of other genital organ(s); Translations: [ACQUIRED ABSENCE OTH GENITAL ORGANS] Onset: 3 Episodic Septicemia (except in labor) (9 sources) Sepsis, unspecified organism; Translations: [Sepsis due to Methicillin susceptible Staphylococcus aureus] Onset: 3 Episodic Spondylosis; intervertebral disc disorders; other back problems (1 source) Cervicalgia; Translations: [CERVICALGIA] Onset: 3 Episodic Superficial injury; contusion (6 sources) Abrasion of lower back and pelvis, initial encounter; Translations: [Abrasion of nose, initial encounter] Onset: 3 Episodic Unclassified (1 source) CHRN KIDNEY DISEASE STG 3 UNSP; Translations: [CHRN KIDNEY DISEASE STG 3 UNSP] Onset: 3 Unclassified (1 source) CONTACT W/AND (SUSP) EXPOS COVID-19; Translations: [CONTACT W/AND (SUSP) EXPOS COVID-19] Onset: 3 Unclassified (3 sources) COUGH, UNSPECIFIED; Translations: [COUGH, UNSPECIFIED] Onset: 3 Urinary tract infections (7 sources) Urinary tract infectious disease; Translations: [Urinary tract infection, site not specified] Onset: 3 12-12-2019 Episodic Past or Other Problems Problem Classification Problem Date Documented Da te Episodic/Chronic Complications of surgical procedures or medical care (2 sources) Hypotension due to drugs; Translations: [Hypotension due to drugs] Onset: 04-16-2023 Episodic Other circulatory disease (2 sources) Other hypotension; Translations: [Other hypotension] Onset: 04-04-2023 Episodic Other circulatory disease (2 sources) Hypotension, unspecified; Translations: [Hypotension, unspecified] Onset: 03-28-2023 Episodic Other lower respiratory disease (4 sources) Other forms of dyspnea; Translations: [OTHER FORMS OF DYSPNEA] Onset: 05-09-2022 Episodic Syncope (2 sources) Syncope and collapse; Translations: [Syncope and collapse] Onset: 11-01-2022 Episodic Unclassified (1 source) COUGH, UNSPECIFIED; Translations: [COUGH, UNSPECIFIED] Onset: 12-05-2022 Results Test Name Value Interpretation Reference Range Facil ity Office Visiton 09-28-2023 Follow-up visit [id number] Kd Ferreira 1940 M Date Provider Department Center 09/28/2023 RodELYSE DENSON CARD [facility] Family History Problem Relation Age of Onset Cancer Father Alcohol abuse Father Family Status - Relation Status Age at Father Level of Service:67240 [place] OFFICE/OUTPATIENT ESTABLISHED HIGH MDM 40-54 MIN Normal [facility] Lab Reportson 09-25-2023 Lab Reports [id number] IFF Normal [facility] Ambulatory Visit Summaryon 1 11-25-2022 Ambulatory Visit Summary JOSE FERREIRA :1940 Visit Date:09/24/2023 Ambulatory Visit Instructions Your Diagnosis H/O prostate cancer Urinary retention History of kidney stones Your Care Team Attending Physician - Ozzy CONTEH MD Primary Care Physician - Farzad Dodson MD This Is Your Medications List Contact prescribing physician if questions or concerns albuterol alprazolam (alprazolam 1 mg Tab) aspirin (aspirin 325 mg Tab) calcium-vitamin D (Super Calcium 600 + D3 400) cilostazol (cilostazol 50 mg Tab) citalopram (citalopram 10 mg Tab) colesevelam (Welchol) fluticasone nasal (fluticasone 0.05 mg/inh Nasal Beatrice) furosemide (furosemide 20 mg Tab) gabapentin (gabapentin 100 mg Cap) insulin glargine (Lantus) insulin lispro (Humalog) lovastatin magnesium aspartate metformin metoprolol (metoprolol 25 mg ER Tab) midodrine (midodrine 10 mg oral tablet) mirtazapine (mirtazapine 45 mg oral tablet) montelukast (montelukast 10 mg Tab) omeprazole sodium zirconium cyclosilicate (Lokelma) Procedures Performed Cystostomy and insertion of suprapubic tube (08/30/2023), TRUS/BX (01/19/1999), CYSTO (11/15/1998), RADICAL RETROPUBIC PROSTATECTOMY W/ BPLND (11/15/1998), right ESWL (11/12/1998), right ESWL (10/01/1998), TRUS/BX (09/23/1996), Amputation of toe, Cardiac pacemaker, Cataract surgery, left ESWL, Procedure on wrist, Release of trigger finger, repair of eardrum, Trigger finger. Discharge Vitals Heart Rate (Peripheral) 60 Respiratory Rate 16 Blood Pressure 95/66 Height 185 cm Height 73 in Weight 81 kg Weight 178.2 lb BMI 23.67 What to do next You Need to Schedule the Following Appointments Follow Up with YADY SALCIDO, JUSTUS Shukla When: Where: [facility] [address] [place] [address] [phone] Medications What How Much When Instructions Unchanged albuterol Contact prescribing physician if questions or concerns Unchanged alprazolam (alprazolam 1 mg Tab) Contact prescribing physician if questions or concerns Unchanged aspirin (aspirin 325 mg Tab) By Mouth Every 4 hours Contact prescribing physician if questions or concerns Unchanged calcium-vitamin D (Super Calcium 600 + D3 400) By Mouth 2 times a day Contact prescribing physician if questions or concerns Unchanged cilostazol (cilostazol 50 mg Tab) Contact prescribing physician if questions or concerns Unchanged citalopram (citalopram 10 mg Tab) Contact prescribing physician if questions or concerns Unchanged colesevelam (Welchol) By Mouth Contact prescribing physician if questions or concerns Unchanged fluticasone nasal (fluticasone 0.05 mg/ inh Nasal Beatrice) Nasal Inhalation Every day Contact prescribing physician if questions or concerns Unchanged furosemide (furosemide 20 mg Tab) 2 Tablets By Mouth Every day Contact prescribing physician if questions or concerns Unchanged gabapentin (gabapentin 100 mg Cap) Contact prescribing physician if questions or concerns Unchanged insulin glargine (Lantus) Subcutaneous Every day Contact prescribing physician if questions or concerns Unchanged insulin lispro (Humalog) Subcutaneous Contact prescribing physician if questions or concerns Unchanged lovastatin By Mouth Contact prescribing physician if questions or concerns Unchanged magnesium aspartate By Mouth 2 times a day Contact prescribing physician if questions or concerns Unchanged metformin By Mouth Contact prescribing physician if questions or concerns Unchanged metoprolol (metoprolol 25 mg ER Tab) By Mouth Every day Contact prescribing physician if questions or concerns Unchanged midodrine (midodrine 10 mg oral tablet) Contact prescribing physician if questions or concerns Unchanged mirtazapine (mirtazapine 45 mg oral tablet) Contact prescribing physician if questions or concerns Unchanged montelukast (montelukast 10 mg Tab) Contact prescribing physician if questions or concerns Unchanged omeprazole By Mouth Every day Contact prescribing physician if questions or concerns Unchanged sodium zirconium cyclosilicate (Lokelma) By Mouth Contact prescribing physician if questions or concerns Medications and Immunizations Administered Given Lupron Depot 45 mg/6 months intramuscular injection, extended release, 45 mg, IntraMuscular. For: H/O prostate cancer Allergies Augmentin (Diarrhea) Pioglitazone Hydrochloride (Mild) amoxicillin (Mild) levoFLOXacin (Mild) Problems Ongoing - Any problem that you are currently receiving treatment for. Atrial fibrillation Diabetes type 2, controlled Esophageal reflux Glucosuria H/O prostate cancer History of kidney stones Hyperlipidemia Hypertension Kidney stone Kidney stones Mixed incontinence Rhinitis Stress incontinence, male Ulcer of gastric fundus Urinary retention Urinary tract infection Historical - Any problem that you are no longer receiving treatment for. Elevated PSA Prostat (more content not included)... Normal [facility] Home Recordson 09-24 [facility] Records [id number] Normal [facility] Patient Educationon 09-24-20 Patient Education Urology Suprapubic Catheter Replacement Suprapubic catheter replacement is a procedure to remove an old catheter and insert a new, clean catheter. A suprapubic catheter is a rubber tube that drains urine from the bladder into a collection bag outside the body. The catheter is inserted into the bladder through a small opening in the lower abdomen, near the center of the body, above the pubic bone (suprapubicarea). There is a tiny balloon filled with germ-free (sterile) water on the end of the catheter that is in the bladder. The balloon helps to keep the catheter in place. If you need to wear a catheter for a long period of time, you may be instructed to replace the catheter yourself. Usually, suprapubic catheters need to be replaced every 4?6 weeks, or as often as told by your health care provider. What are the risks? Generally, this is a safe procedure. However, problems may occur, including failure to get the catheter into the bladder. What happens before the procedure? ? You may have an exam or testing, including a blood or urine sample. ? Ask your health care provider what steps will be taken to help prevent infection. What happens during the procedure? ? You will lie on your back. ? The water from the balloon will be removed using a syringe. ? The catheter will be slowly removed. ? Lubricant will be applied to the end of the new catheter that will go into your bladder. ? The new catheter will be inserted through the opening in your abdomen. Your health care provider will slide the catheter into your bladder. ? Your health care provider will wait for some urine to start flowing through the catheter. When this happens, a syringe will be used to fill the balloon with sterile water. ? A collection bag will be attached to the end of the catheter. The procedure may vary among health care providers and hospitals. What can I expect after procedure? After the procedure, it is common to have: ? Some discomfort around the opening in your abdomen. Follow these instructions at home: Caring for the skin around the catheter Use a clean washcloth and soapy water to clean the skin around your catheter every day. Pat the area dry with a clean towel. ? Do not pull on the catheter. ? Do not use ointment or lotion on this area unless told by your health care provider. ? Check the skin around the catheter every day for signs of infection. Check for: ? Redness, swelling, or pain. ? Fluid or blood. ? Warmth. ? Pus or a bad smell. Caring for the catheter ? Clean the catheter with soap and water as often as told by your health care provider. ? Always make sure there are no twists or curls (kinks) in the catheter. ? As soon as you are able to move, you may use a leg bag to collect the urine. ? Make sure that the tubing is straight and without kinks. ? Wrap an ro bandage gently over the tubing and around your leg to minimize the risk of the bag getting pulled out. Emptying the collection bag Empty the large collection bag every 8 hours. Empty the small collection bag when it is about ? full. To empty your large or small collection bag, take the following steps: ? Always keep the bag below the level of the catheter. This keeps urine from flowing backward into the catheter. ? Hold the bag over the toilet or another container. Turn the valve (spigot) at the bottom of the bag to empty the urine. ? Do not touch the opening of the spigot. ? Do not let the opening touch the toilet or container. ? Close the spigot tightly when the bag is empty. Cleaning the collection bag ? Wash your hands with soap and water. If soap and water are not available, use hand cutter barrel drum. ? Disconnect the bag from the catheter and immediately attach a new bag to the catheter. ? Empty the used bag completely. ? Clean the used bag according to the customer marketing manager's instructions, or as told by your health care provider. ? Let the bag dry completely, and put it in a clean plastic bag before storing it. General instructions ? Always wash your hands before and after caring for your catheter and collection bag. Use soap and water. If soap and water are not available, use hand cutter barrel drum. ? Always make sure there are no leaks in the catheter or collection bag. ? Drink enough fluid to keep your urine pale yellow. ? If you were prescribed an antibiotic medicine, take it as told by your health care provider. Do not stop taking the antibiotic even if you start to feel better. ? Do not take baths, swim, or use a hot tub. ? Keep all follow-up visits as told by your health care provider. This is important. Contact a health care provider if: ? You leak urine. ? You have redness, swelling, or pain around your catheter opening. ? You have fluid or blood coming from your catheter opening. ? Your catheter opening feels warm to the touch. ? You have (more content not included)... Normal [facility] Urology Office/Clinic Noteon 09-24-2023 Urology Office/Clinic Note Chief Complaint hx of prostate cancer, SP tube change HPI Staff S/P Suprapubic Tube Placement done 08/30/23 Pt is here today for 6m PSA & Lupron Injection, as well as first S/P tube change. Last Lupron 07/2018 Authorization is not needed prior to Lupron due to pt having Traditional Medicare. DX: Hx of Prostate Cancer, Mixed Incontinence & Hx of Kidney Stones. PSA 08/21/23- 0.98 Pt was admitted to [facility] 09/11/23 due to Tachycardia. Post Op sutures removed at that time. History of Present Illness Tests reviewed: reviewed PSA I have reviewed the previous health record information and history for this patient from Dr. Conteh. I have reviewed and verified the staff HPI to be accurate for this encounter. Review of Systems PHQ Score Initial Depression Screen Score: 0 SCORE ROS - Provider Constitutional: denies weight loss, denies hot flashes. Eyes: denies eye problems. Gastrointestinal: denies nausea, denies vomiting. Cardiovascular: denies chest pain or angina. Integumentary: no dryness Musculoskeletal: denies musculoskeletal symptoms. ENMT: denies otolaryngeal symptoms. Respiratory: no shortness of breath. Heme/Lymph: denies easy bleeding tendency, denies easy bruising tendency. Psychiatric: no confusion, no anxiety. Genitourinary: See HPI. Physical Exam Vitals & Measurements HR: 60(Peripheral) RR: 16 BP: 95/66 HT: 73 in HT: 185 cm WT: 81 kg WT: 178.2 lb BMI: 23.67 General Appearance: alert, no distress, well nourished, well developed male. Genitourinary: normal scrotum, normal testes, normal urethra, normal epididymis, normal vas deferens/spermatic cord. Flank Pain: none. Bladder: nonpalpable. Assessment/Plan 1. H/O prostate cancer (Z85.46: Personal history of malignant neoplasm of prostate) PSA: 01/24/21 - 0.23 07/30/21 - 0.38 01/31/22 - 0.35 12/18/22 - 0.5 06/11/23 - 0.69 08/21/23 - 0.98 S/p radical prostatectomy 1998. Last Lupron 07/2018. Discussed recent PSA level which remains low. Has been increasing slightly over the last 2 yrs. Lupron 45 mgIM injection given today with no complications. Left glute. Pt. denies side effects at this time. 2. Urinary retention (R33.9: Retention of urine, unspecified) S/p SP tube placement 08/30/23. Had sutures removed 09/12/23 while inpatient at [facility] ER. Pt had SP tube 24FR changed IO today wo complications. Advised pt to leave tube taped to abdomen or secured underneath his briefs to help with drainage and to prevent from having tension on insertion site. States he drains his bag q1hr. Reports his nurse assists him with maintenance of his tube. 3. History of kidney stones (Z87.442: Personal history of urinary calculi) Denies any recent stone episodes. Follow-up With When Contact Information YADY SALCIDO, Ozzy Velasquez, [facility] [address], [place] [address] [phone] Additional Instructions: 3 wks Patient Education Suprapubic Catheter Replacement IAnne-Marie, personally scribed for Valencia Walsh PA-C on 09/24/2023 12:14:31. . Documentation recorded by the scribe, Anne-Marie Quinonez, accurately reflects the services(s) I performed and decisions made by me. Authenticated by Dr. Conteh on 09/24/2023 12:17:48. Problem List/Past Medical History Ongoing Atrial fibrillation Diabetes type 2, controlled Esophageal reflux Glucosuria H/O prostate cancer History of kidney stones Hyperlipidemia Hypertension Kidney stone Kidney stones Mixed incontinence Rhinitis Stress incontinence, male Ulcer of gastric fundus Urinary retention Urinary tract infection Historical Elevated PSA Prostate cancer Procedure/Surgical History Cystostomy and insertion of suprapubic tube (08/30/2023), TRUS/BX (01/19/1999), CYSTO (11/15/1998), RADICAL RETROPUBIC PROSTATECTOMY W/ BPLND (11/15/1998), right ESWL (11/12/1998), right ESWL (10/01/1998), TRUS/BX (09/23/1996), Amputation of toe, Cardiac pacemaker, Cataract surgery, left ESWL, Procedure on wrist, Release of trigger finger, repair of eardrum, Trigger finger. Medications albuterol alprazolam 1 mg Tab aspirin 325 mg Tab, Oral, q4hr cilostazol 50 mg Tab citalopram 10 mg Tab fluticasone 0.05 mg/inh Nasal Beatrice, Nasal, Daily furosemide 20 mg Tab, 40 mg= 2 tab(s), Oral, Daily gabapentin 100 mg Cap Humalog, SubCutaneous Lantus, SubCutaneous, Daily Lokelma, Oral lovastatin, Oral magnesium aspartate, Oral, BID metformin, Oral metoprolol 25 mg ER Tab, Oral, Daily midodrine 10 mg oral tablet mirtazapine 45 mg oral tablet montelukast 10 mg Tab omeprazole, Oral, Daily Super Calcium 600 + D3 400, Oral, BID Welchol, Oral Allergies Augmentin (Diarrhea) Pioglitazone Hydrochloride (Mild) amoxicillin (Mild) levoFLOXacin (Mild) Social History Tobacco Never (less than 100 in lifetime) Tobacco Use:. Never Smokeless Tobacco Use:. Household tobacco concerns: No. Yes, 11/ (more content not included)... Normal [facility] Comment on above: Result Comment: Elec tronically Signed By: Ozzy CONTEH MD\.br\Date and Time Signed: 09/24/23 12:17 EST\.br\Electronically Co-Signed By: Anne-Marie Quinonez\.br\Date and Time Co-Signed: 09/24/23 12:14 EST Operative Reporton Operative Report [id number] [facility] Lab Reportson 08-31-2023 Lab Reports [id number] IFF [facility] Lab Reports [id number] IFF [facility] Patient Educationon 08-27-20 Patient Education Urology Suprapubic Catheter Replacement Suprapubic catheter replacement is a procedure to remove an old catheter and insert a new, clean catheter. A suprapubic catheter is a rubber tube that drains urine from the bladder into a collection bag outside the body. The catheter is inserted into the bladder through a small opening in the lower abdomen, near the center of the body, above the pubic bone (suprapubicarea). There is a tiny balloon filled with germ-free (sterile) water on the end of the catheter that is in the bladder. The balloon helps to keep the catheter in place. If you need to wear a catheter for a long period of time, you may be instructed to replace the catheter yourself. Usually, suprapubic catheters need to be replaced every 4?6 weeks, or as often as told by your health care provider. What are the risks? Generally, this is a safe procedure. However, problems may occur, including failure to get the catheter into the bladder. What happens before the procedure? ? You may have an exam or testing, including a blood or urine sample. ? Ask your health care provider what steps will be taken to help prevent infection. What happens during the procedure? ? You will lie on your back. ? The water from the balloon will be removed using a syringe. ? The catheter will be slowly removed. ? Lubricant will be applied to the end of the new catheter that will go into your bladder. ? The new catheter will be inserted through the opening in your abdomen. Your health care provider will slide the catheter into your bladder. ? Your health care provider will wait for some urine to start flowing through the catheter. When this happens, a syringe will be used to fill the balloon with sterile water. ? A collection bag will be attached to the end of the catheter. The procedure may vary among health care providers and hospitals. What can I expect after procedure? After the procedure, it is common to have: ? Some discomfort around the opening in your abdomen. Follow these instructions at home: Caring for the skin around the catheter Use a clean washcloth and soapy water to clean the skin around your catheter every day. Pat the area dry with a clean towel. ? Do not pull on the catheter. ? Do not use ointment or lotion on this area unless told by your health care provider. ? Check the skin around the catheter every day for signs of infection. Check for: ? Redness, swelling, or pain. ? Fluid or blood. ? Warmth. ? Pus or a bad smell. Caring for the catheter ? Clean the catheter with soap and water as often as told by your health care provider. ? Always make sure there are no twists or curls (kinks) in the catheter. ? As soon as you are able to move, you may use a leg bag to collect the urine. ? Make sure that the tubing is straight and without kinks. ? Wrap an ro bandage gently over the tubing and around your leg to minimize the risk of the bag getting pulled out. Emptying the collection bag Empty the large collection bag every 8 hours. Empty the small collection bag when it is about ? full. To empty your large or small collection bag, take the following steps: ? Always keep the bag below the level of the catheter. This keeps urine from flowing backward into the catheter. ? Hold the bag over the toilet or another container. Turn the valve (spigot) at the bottom of the bag to empty the urine. ? Do not touch the opening of the spigot. ? Do not let the opening touch the toilet or container. ? Close the spigot tightly when the bag is empty. Cleaning the collection bag ? Wash your hands with soap and water. If soap and water are not available, use hand cutter barrel drum. ? Disconnect the bag from the catheter and immediately attach a new bag to the catheter. ? Empty the used bag completely. ? Clean the used bag according to the customer marketing manager's instructions, or as told by your health care provider. ? Let the bag dry completely, and put it in a clean plastic bag before storing it. General instructions ? Always wash your hands before and after caring for your catheter and collection bag. Use soap and water. If soap and water are not available, use hand cutter barrel drum. ? Always make sure there are no leaks in the catheter or collection bag. ? Drink enough fluid to keep your urine pale yellow. ? If you were prescribed an antibiotic medicine, take it as told by your health care provider. Do not stop taking the antibiotic even if you start to feel better. ? Do not take baths, swim, or use a hot tub. ? Keep all follow-up visits as told by your health care provider. This is important. Contact a health care provider if: ? You leak urine. ? You have redness, swelling, or pain around your catheter opening. ? You have fluid or blood coming from your catheter opening. ? Your catheter opening feels warm to the touch. ? You have (more content not included)... Normal [facility] Urology Office/Clinic Noteon 08-27-2023 Urology Office/Clinic Note Chief Complaint Discuss Upcoming S/P Tube Placement HPI Staff Pt is here today with his and daughter in law (POA) discuss upcoming SP tube placement 08/30/23. Previous dx of H/O prostate cancer (radical prostatectomy 1998), mixed incontinence and hx of kidney stone. PST's & Cardiac Clearance have been obtained. Pt is also scheduled for 3m PSA & possible Lupron 09/24/23. Last Lupron 07/2018 Authorization is not needed prior to Lupron due to pt having Traditional Medicare PSA already obtained 08/21/23- 0.98 PT is concerned with ongoing constipation/diarrhea. As well as if he will need bigger bags after S/P tube States without catheter he gets no urge to void. With catheter he wakes up 2-3x/night due to the sensation of needing to urinate. Wonders if he will have to stay over night in the hospital. Concerned with amount of pain History of Present Illness Tests reviewed: none. I have reviewed the previous health record information and history for this patient from . I have reviewed and verified the staff HPI to be accurate for this encounter. There have been no associated fever, chills, flank pain, or blood in the urine. Denies any urinary infections since last encounter. Review of Systems PHQ Score Initial Depression Screen Score: 0 ROS - Provider Constitutional: denies weight loss, denies hot flashes. Eyes: denies eye problems. Gastrointestinal: denies nausea, denies vomiting. Cardiovascular: denies chest pain or angina. Integumentary: no dryness Musculoskeletal: denies musculoskeletal symptoms. ENMT: denies otolaryngeal symptoms. Respiratory: no shortness of breath. Heme/Lymph: denies easy bleeding tendency, denies easy bruising tendency. Psychiatric: no confusion, no anxiety. Genitourinary: See HPI. Physical Exam Vitals & Measurements HR: 97(Peripheral) BP: 111/77 HT: 73 in HT: 185 cm WT: 82 kg WT: 180.4 lb BMI: 23.96 General Appearance: alert, no distress, well nourished, well developed male. Assessment/Plan Pt is here today with his and daughter in law (POA) discuss upcoming SP tube placement 08/30/23. 1. H/O prostate cancer (Z85.46: Personal history of malignant neoplasm of prostate) S/p radical prostatectomy 1998. PSA: 01/24/21 - 0.23 07/30/21 - 0.38 01/31/22 - 0.35 12/18/22 - 0.5 06/11/23 - 0.69 08/21/23 - 0.98 Pt is already scheduled for 3m PSA & possible Lupron 09/24/23. Last Lupron 07/2018 Authorization is not needed prior to Lupron due to pt having Traditional Medicare. 2. Mixed incontinence (N39.46: Mixed incontinence) No sample provided for UA today, pt has indwelling catheter. Pt states he is losing fine mobility in his hands and would like to discuss having an S/P tube placed. PST's & Cardiac Clearance have been obtained. Pt has multiple questions about his upcoming S/p tube tube placement 08/30/23. Pt is concerned with ongoing constipation/diarrhea. As well as if he will need bigger bags after S/P tube. States without catheter he gets no urge to void. With catheter he wakes up 2-3x/night due to the sensation of needing to urinate. Wonders if he will have to stay over night in the hospital. Concerned with amount of pain. Counseled pt on the risks and benefits to having an S/P tube placed. Advised pt that nothing will change other than getting a different type of catheter. Advised pt to have the bag placed above the knee. Advised pt that if he would like to have the procedure done, he could reschedule his appt. Pt states that he does not want to reschedule his procedure. Follow up with SP Placement Procedure on 08/30/23 and his appt already scheduled for 09/24/23. All questions/concerns were discussed. Pt to call the office if he encounters any issues prior. Pt acknowledges understanding. 3. History of kidney stones (Z87.442: Personal history of urinary calculi) Denies any recent stone episodes. Follow-up With When Contact Information YADY SACLIDO, Ozzy Velasquez URL [facility] [address], [place] [address]- Additional Instructions: f/u appt already scheduled Patient Education Suprapubic Catheter Replacement I, Cordelia Donato , personally scribed for Dr. Conteh on 08/27/2023 13:45:05. . Documentation recorded by the scribe, Cordelia Donato, accurately reflects the services(s) I performed and decisions made by me. Problem List/Past Medical History Ongoing Atrial fibrillation Diabetes type 2, controlled Esophageal reflux Glucosuria H/O prostate cancer History of kidney stones Hyperlipidemia Hypertension Kidney stone Kidney stones Mixed incontinence Rhinitis Stress incontinence, male Ulcer of gastric fundus Urinary tract infection Historical Elevated PSA Prostate cancer Procedure/Surgical History TRUS/BX (01/19/1999), CYSTO (11/15/1998), RADICAL RETROPUBIC PROSTATECTOMY W/ BPLND (11/15/1998), right ESWL (11/12/1998), right (more content not included)... Normal [facility] Comment on above: Result Comment: Elec tronically Signed By: YADY SALCIDO, Ozzy Velasquez\.br\Date and Time Signed: 08/27/23 13:47 EST\.br\Electronically Co-Signed By: Cordelia Donato\.br\Date and Time Co-Signed: 08/27/23 13:45 EST Patient Correspondenceon Patient Correspondence [id number] Normal [facility] Documentationon 08-22-2023 Documentation [id number] Kd Ferreira 1940 M Date Provider Department Center 08/22/2023 [facility]. Family History Problem Relation Age of Onset Cancer Father Alcohol abuse Father Family Status - Relation Status Age at Father Normal [facility] Lab Reportson 08-22-2023 Lab Reports [id number] IFF Normal [facility] Lab Reports [id number] IFF Normal [facility] 36on 08-21-2023 36 You saw this patient 2 weeks ago in clinic. He now needs clearance to hold aspirin 325mg for 7 days for a cystoscopy and suprapubic catheter placement with Dr. Conteh. This is scheduled on 08/30/2023. He had pre-surgery testing done today at [facility] ([facility], labs) and I have scanned them into his social media content manager for your review. Please advise. Thanks. Normal [facility] Office Visiton 08-06-2023 Follow-up visit [id number] Kd Ferreira 1940 M Date Provider Department Center 08/06/2023 [facility] Family History Problem Relation Age of Onset Cancer Father Alcohol abuse Father Family Status - Relation Status Age at Father Level of Service:16836 [place] OFFICE/OUTPATIENT ESTABLISHED LOW MDM 20-29 MIN [facility] Consent for Procedure/Surger yon 08-02-2023 Consent for Procedure/Surgery [id number] [facility] Formson 08-02-2023 Forms [id number] FF [facility] Physician Orderon 08-02-2023 Physician Order [id number] [facility] Retail - Clinical Noteon Retail - Clinical Note [id number]:127 [facility] Ambulatory Visit Summaryon 0 06-18-2023 Ambulatory Visit Summary JOSE FERREIRA :1940 Visit Date:06/18/2023 Ambulatory Visit Instructions Your Diagnosis H/O prostate cancer Mixed incontinence History of kidney stones Your Care Team Attending Physician - YADY SALCIDO, Ozzy Velasquez Primary Care Physician - Farzad Dodson MD This Is Your Medications List Contact prescribing physician if questions or concerns albuterol alprazolam (alprazolam 1 mg Tab) aspirin (aspirin 325 mg Tab) calcium-vitamin D (Super Calcium 600 + D3 400) cilostazol (cilostazol 50 mg Tab) citalopram (citalopram 10 mg Tab) colesevelam (Welchol) fluticasone nasal (fluticasone 0.05 mg/inh Nasal Beatrice) furosemide (furosemide 20 mg Tab) gabapentin (gabapentin 100 mg Cap) insulin glargine (Lantus) insulin lispro (Humalog) lovastatin magnesium aspartate metformin metoprolol (metoprolol 25 mg ER Tab) midodrine (midodrine 10 mg oral tablet) mirtazapine (mirtazapine 45 mg oral tablet) montelukast (montelukast 10 mg Tab) omeprazole sodium zirconium cyclosilicate (Lokelma) Procedures Performed TRUS/BX (01/19/1999), CYSTO (11/15/1998), RADICAL RETROPUBIC PROSTATECTOMY W/ BPLND (11/15/1998), right ESWL (11/12/1998), right ESWL (10/01/1998), TRUS/BX (09/23/1996), Amputation of toe, Cardiac pacemaker, Cataract surgery, left ESWL, Procedure on wrist, Release of trigger finger, repair of eardrum. Discharge Vitals Height 185 cm Height 73 in Weight 82 kg Weight 180.4 lb BMI 23.96 What to do next Scheduled Follow-Up Appointments Sunday 10:45 AM EST With: YADY SALCIDO, Ozzy Velasquez Where: [facility] Patient Educationon 06-18-20 23 Patient Education Oncology Prostate Cancer The prostate is a small gland that produces fluid that makes up semen (seminal fluid). It is located below the bladder in men, in front of the rectum. Prostate cancer is the abnormal growth of cells in the prostate gland. What are the causes? The exact cause of this condition is not known. What increases the risk? You are more likely to develop this condition if: ? You are 65 years of age or older. ? You have a family history of prostate cancer. ? You have a family history of breast and ovarian cancer. ? You have genes that are passed from parent to child (inherited), such as BRCA1 and BRCA2. ? You have High syndrome. men and men of descent are diagnosed with prostate cancer at higher rates than other men. The reasons for this are not well understood and are likely due to a combination of genetic and environmental factors. What are the signs or symptoms? Symptoms of this condition include: ? Problems with urination. This may include: ? A weak or interrupted flow of urine. ? Trouble starting or stopping urination. ? Trouble emptying the bladder all the way. ? The need to urinate more often, especially at night. ? Blood in urine or semen. ? Persistent pain or discomfort in the lower back, lower abdomen, or hips. ? Trouble getting an erection. ? Weakness or numbness in the legs or feet. How is this diagnosed? This condition can be diagnosed with: ? A digital rectal exam. For this exam, a health care provider inserts a gloved finger into the rectum to feel the prostate gland. ? A blood test called a prostate-specific antigen (PSA) test. ? A procedure in which a sample of tissue is taken from the prostate and checked under a microscope (prostate biopsy). ? An imaging test called transrectal ultrasonography. Once the condition is diagnosed, tests will be done to determine how far the cancer has spread. This is called staging the cancer. Staging may involve imaging tests, such as a bone scan, CT scan, PET scan, or MRI. Stages of prostate cancer The stages of prostate cancer are as follows: ? Stage 1 (I). At this stage, the cancer is found in the prostate only. The cancer is not visible on imaging tests, and it is usually found by accident, such as during prostate surgery. ? Stage 2 (II). At this stage, the cancer is more advanced than it is in stage 1, but the cancer has not spread outside the prostate. ? Stage 3 (III). At this stage, the cancer has spread beyond the outer layer of the prostate to nearby tissues. The cancer may be found in the seminal vesicles, which are near the bladder and the prostate. ? Stage 4 (IV). At this stage, the cancer has spread to other parts of the body, such as the lymph nodes, bones, bladder, rectum, liver, or lungs. Prostate cancer grading Prostate cancer is also graded according to how the cancer cells look under a microscope. This is called the Esmond score and the total score can range from 6?10, indicating how likely it is that the cancer will spread (metastasize) to other parts of the body. The higher the score, the greater the likelihood that the cancer will spread. ? Esmond 6 or lower: This indicates that the cancer cells look similar to normal prostate cells (well differentiated). ? Esmond 7: This indicates that the cancer cells look somewhat similar to normal prostate cells (moderately differentiated). ? Lisy 8, 9, or 10: This indicates that the cancer cells look very different than normal prostate cells (poorly differentiated). How is this treated? Treatment for this condition depends on several factors, including the stage of the cancer, your age, personal preferences, and your overall health. Talk with your health care provider about treatment options that are recommended for you. Common treatments include: ? Observation for early stage prostate cancer (active surveillance). This involves having exams, blood tests, and in some cases, more biopsies. For some men, this is the only treatment needed. ? Surgery. Types of surgeries include: ? Open surgery (radical prostatectomy). In this surgery, a larger incision is made to remove the prostate. ? A laparoscopic radical prostatectomy. This is a surgery to remove the prostate and lymph nodes through several small incisions. It is often referred to as a minimally invasive surgery. ? A robotic radical prostatectomy. This is laparoscopic surgery to remove the prostate and lymph nodes with the help of robotic arms that are controlled by the surgeon. ? Cryoablation. This is surgery to freeze and destroy cancer cells. ? Radiation treatment. Types of radiation treatment include: ? External beam radiation. This type aims beams of radiation from outside the body at the prostate to destroy cancerous cells. ? Brachytherapy. This type uses radioactive needles, seeds, wires, or tubes that are implanted into the prostate gland. Like external be (more content not included)... Normal [facility] Reminderson 06-18-2023 Reminders - From: Anne-Marie Quinonez To: EU - Recalls Yady; Sent: 06/18/2023 18:05:27 EDT Show up: 08/18/2023 18:05:00 EDT Subject: PSA prior to appt Reminder Message Please Remember to:_have pt get PSA done prior to appt in 3 months. Normal [facility] Urology Office/Clinic Noteon 06-18-2023 Urology Office/Clinic Note Chief Complaint 6m PSA HPI Staff 6m PSA DX: Hx of Prostate Cancer, Mixed Incontinence & Kidney Stone S/P Radical Prostatectomy in 1998. PSA drawn at time of last encounter 12/18/22- 0.5 [place] 06/11/23- 0.69 ([place]) Pt has condom catheter. Changes himself QOD. Pt has been experiencing increase in shakiness of hands. Not sure how much longer he will be able to change himself. Denies flank pain. Denies urinary leaking, only when catheter slips off. History of Present Illness Tests reviewed: reviewed UA, PSA I have reviewed the previous health record information and history for this patient from Dr. Conteh. I have reviewed and verified the staff HPI to be accurate for this encounter. There have been no associated fever, chills, flank pain, or blood in the urine. Denies any urinary infections since last encounter. Review of Systems PHQ Score Initial Depression Screen Score: 0 ROS - Provider Constitutional: denies weight loss, denies hot flashes. Eyes: denies eye problems. Gastrointestinal: denies nausea, denies vomiting. Cardiovascular: denies chest pain or angina. Integumentary: no dryness Musculoskeletal: denies musculoskeletal symptoms. ENMT: denies otolaryngeal symptoms. Respiratory: no shortness of breath. Heme/Lymph: denies easy bleeding tendency, denies easy bruising tendency. Psychiatric: no confusion, no anxiety. Genitourinary: See HPI. Physical Exam Vitals & Measurements HT: 73 in HT: 185 cm WT: 82 kg WT: 180.4 lb BMI: 23.96 General Appearance: alert, no distress, well nourished, well developed male. Genitourinary: normal scrotum, normal testes, normal urethra, normal epididymis, normal vas deferens/spermatic cord. Flank Pain: none. Bladder: nonpalpable. Assessment/Plan Pt is here with and daughter today due to limited hear ability. 1. H/O prostate cancer (Z85.46: Personal history of malignant neoplasm of prostate) S/p radical prostatectomy 1998. Last Lupron inj. given in 07/2018 [1] PSA: 01/24/21 - 0.23 07/30/21 - 0.38 01/31/22 - 0.35 12/18/22 - 0.5 06/11/23 - 0.69 Discussed repeating Lupron injection at next visit due to recent elevation in PSA. Follow up with PSA in 3 months or sooner if needed. Pt to get Lupron inj at that time if PSA remains elevated. All questions/concerns were discussed. Pt to call the office if he encounters any issues prior. Pt acknowledges understanding. 2. Mixed incontinence (N39.46: Mixed incontinence) No sample provided for UA today, pt has indwelling catheter. Pt states he is losing fine mobility in his hands so he might not be able to change catheter on his own in the near future. Discussed possibility of surgical intervention. Pt to decide when he feels this is necessary. 3. History of kidney stones (Z87.442: Personal history of urinary calculi) Denies any recent stone episodes. Follow-up With When Contact Information YADY SALCIDO, Ozzy Velasquez, JUSTUS In 3 months [facility] [address], [place] [address]- [phone] Additional Instructions: PSA (and possible Lupron inj) Patient Education Prostate Cancer I, Anne-Marie Quinonez, personally scribed for Dr. Conteh on 06/18/2023 13:14:35. . Documentation recorded by the scribe, Anne-Marie Quinonez, accurately reflects the services(s) I performed and decisions made by me. Authenticated by Dr. Conteh on 06/18/2023 13:15:58. Problem List/Past Medical History Ongoing Atrial fibrillation Diabetes type 2, controlled Esophageal reflux Glucosuria H/O prostate cancer History of kidney stones Hyperlipidemia Hypertension Kidney stone Kidney stones Mixed incontinence Rhinitis Stress incontinence, male Ulcer of gastric fundus Urinary tract infection Historical Elevated PSA Prostate cancer Procedure/Surgical History TRUS/BX (01/19/1999), CYSTO (11/15/1998), RADICAL RETROPUBIC PROSTATECTOMY W/ BPLND (11/15/1998), right ESWL (11/12/1998), right ESWL (10/01/1998), TRUS/BX (09/23/1996), Amputation of toe, Cardiac pacemaker, Cataract surgery, left ESWL, Procedure on wrist, Release of trigger finger, repair of eardrum. Medications albuterol alprazolam 1 mg Tab aspirin 325 mg Tab, Oral, q4hr cilostazol 50 mg Tab citalopram 10 mg Tab fluticasone 0.05 mg/inh Nasal Beatrice, Nasal, Daily furosemide 20 mg Tab, 40 mg= 2 tab(s), Oral, Daily gabapentin 100 mg Cap Humalog, SubCutaneous Lantus, SubCutaneous, Daily Lokelma, Oral lovastatin, Oral magnesium aspartate, Oral, BID metformin, Oral metoprolol 25 mg ER Tab, Oral, Daily midodrine 10 mg oral tablet mirtazapine 45 mg oral tablet montelukast 10 mg Tab omeprazole, Oral, Daily Super Calcium 600 + D3 400, Oral, BID Welchol, Oral Allergies Augmentin (Diarrhea) Pioglitazone Hydrochloride (Mild) amoxicillin (Mild) levoFLOXacin (Mild) Social History Tobacco Never (less than 100 in lifetime) Tobacco Use:. Never Smokeless To (more content not included)... [facility] Comment on above: Result Comment: Elec tronically Signed By: Ozzy CONTEH MD\.br\Date and Time Signed: 06/18/23 13:16 EDT\.br\Electronically Co-Signed By: Anne-Marie Quinonez\.br\Date and Time Co-Signed: 06/18/23 13:14 EDT Lab Reportson 06-15-2023 Lab Reports [id number] CD:127 Normal [facility] Office Visiton 04-16-2023 Follow-up visit [id number] Kd Ferreira eph D 1940 M Date Provider Department Center 04/16/2023 120-GEORGIE MUNOZ BELEN [facility] Family History Problem Relation Age of Onset Cancer Father Alcohol abuse Father Family Status - Relation Status Age at Father Level of Service:72226 [place] OFFICE/OUTPATIENT ESTABLISHED LOW MDM 20-29 MIN [facility] Office Visiton 04-04-2023 Follow-up visit [id number] Kd Ferreira eph D 1940 M Date Provider Department Center 04/04/2023 [id number] SOTO BELEN [place] Family History Problem Relation Age of Onset Cancer Father Alcohol abuse Father Family Status - Relation Status Age at Father Level of Service:25822 [place] OFFICE/OUTPATIENT ESTABLISHED LOW MDM 20-29 MIN [facility] Office Visiton 03-28-2023 Follow-up visit [id number] Kd Ferreira 1940 M Date Provider Department Center 03/28/2023 NIA PORTILLO [facility] [facility] Family History Problem Relation Age of Onset Cancer Father Alcohol abuse Father Family Status - Relation Status Age at Father Level of Service:[id number] [place] OFFICE/OUTPATIENT ESTABLISHED MOD MDM 30-39 MIN Reason for Visit and Comments: Atrial Fibrillation [80] Coronary Artery Disease [187] Congestive Heart Failure [127] Normal [facility] XR CHEST 2 Von 02-09-2023 XR CHEST 2 V EXAMINATION: XR CHES T 2 V HISTORY: Pneumonia COMPARISON: XR chest 01/09/2023 FINDINGS: LUNGS: Mild chronic interstitial changes. Opacities are convincing infiltrates. Mild opacity within lateral left lung base favors a pericardial fat pad. VASCULATURE: No increased pulmonary vasculature. PLEURA: No pneumothorax, effusion, or pleural thickening. CARDIAC: No cardiomegaly or cardiac silhouette abnormality. MEDIASTINUM: No visible mass or adenopathy. BONES: No fracture or visible bone lesion. OTHER: Stable cardiac pacer. IMPRESSION: 1. No convincing acute infiltrates. Clearing of previously seen mild basilar infiltrates. Electronically authenticated by: VALENTÍN ZIMMERMAN Date: 2023-02-09 16:00 Normal [facility] CULTURE SPUTUMon 01-12-2023 CULTURE SPUTUM Culture Observations : METHICILLIN RESISTANT STAPH AUREUS ISOLATED. PLEASE FOLLOW APPROPRIATE ISOLATION PROCEDURES. Isolate 1 Staphylococcus aureus Light growth of Isolate 2 Pseudomonas aeruginosa Light growth of ORGANISM 2 Pseudomonas aeruginosa ANTIBIOTIC M.I.C RX STATUS Piperacillin/Tazobactam <=4 S F Ceftazidime 2 S F Imipenem 1 S F Amikacin <=2 S F Gentamicin <=1 S F Tobramycin <=1 S F Ciprofloxacin <=0.25 S F Levofloxacin <=0.12 S F ORGANISM 1 Staphylococcus aureus ANTIBIOTIC M.I.C RX STATUS Beta-Lactamase Pos POS F Cefoxitin Screen Pos POS F Benzylpenicillin 0.06 R F Oxacillin 1 R F Ciprofloxacin >=8 R F Levofloxacin >=8 R F Inducible Clindamycin Resistance Pos POS F Erythromycin >=8 R F Clindamycin <=0.25 R F Quinupristin/Dalfopristin <=0.25 S F Linezolid 2 S F Vancomycin <=0.5 S F Tetracycline <=1 S F Rifampicin <=0.5 S F Trimethoprim/Sulfamethoxazole <=10 S F Normal [facility] Comment on above: Performed By: #### B PATIENT TRANSPORTER, CMP #### [facility] [address] [place] [address] Dr. Norbert Polk BNPon 01-11-2023 Natriuretic peptide B (Bld) [Mass/Vol] 1177.0 pg/mL Normal <=1,800.0 [facility] Comment on above: Performed By: #### B PATIENT TRANSPORTER, CMP #### [facility] [address] [place] [address] Dr. Norbert Polk CBC AUTO DIFFon 01-11-2023 BASO # 0.1 103/ul Normal 0.0-0.1 [facility] Comment on above: Performed By: #### P OCGLUC #### [facility] [address] [place] [address] Dr. Norbert Polk Basophils/100 WBC (Bld) 0.5 % Normal 0.2-2.0 [facility] Comment on above: Performed By: #### P OCGLUC #### [facility] [address] [place] [address] Dr. Norbert Polk EO # 0.7 103/ul Normal 0.0-0.7 [facility] ostal Comment on above: Performed By: #### P OCGLUC #### [facility] [address] [place] [address] Dr. Norbert Polk Eosinophils/100 WBC (Bld) 7.0 % Normal 0.9-7.0 [facility] Comment on above: Performed By: #### P OCGLUC #### [facility] [address] [place] [address] Dr. Norbert Polk Erythrocyte distribution wid th (RBC) [Ratio] 14.5 % Normal 11.0-15.0 [facility] Comment on above: Performed By: #### P OCGLUC #### [facility] [address] [place] [address] Dr. Norbert Polk Hematocrit (Bld) [Volume fraction] 29.2 % Critically low 42.0-54.0 [facility] pital Comment on above: Performed By: #### P OCGLUC #### [facility] [address] [place] [address] Dr. Norbert Polk Hemoglobin (Bld) [Mass/Vol] 8.9 g/dL Critically low 14.0 -18.0 [facility] Comment on above: Performed By: #### P OCGLUC #### [facility] [address] [place] [address] Dr. Norbert Polk IG # 0.05 10e3/ul Critically high 0.00-0.03 [facility] Comment on above: Performed By: #### P OCGLUC #### [facility] [address] [place] [address] Dr. Norbert Polk IG % 0.5 % Normal 0.0-0.5 [facility] Comment on above: Performed By: #### P OCGLUC #### [facility] [address] [place] [address] Dr. Norbert Polk LYMPH # 2.5 103/ul Normal 1.2-3.8 [facility] Comment on above: Performed By: #### P OCGLUC #### [facility] [address] [place] [address] Dr. Norbert Polk Lymphocytes/100 WBC (Bld) 25.7 % Normal 20.5-60.0 [facility] Comment on above: Performed By: #### P OCGLUC #### [facility] [address] [place] [address] Dr. Norbert Polk MANUAL DIFF REQ NO Normal [facility] Comment on above: Performed By: #### P OCGLUC #### [facility] [address] [place] [address] Dr. Norbert Polk MCH (RBC) [Entitic mass] 29.9 pg Normal 25.9-34.0 [facility] Comment on above: Performed By: #### P OCGLUC #### [facility] [address] [place] [address] Dr. Norbert Polk MCHC (RBC) [Mass/Vol] 30.5 g/dL Normal 29.9-35.2 [facility] Comment on above: Performed By: #### P OCGLUC #### [facility] [address] [place] [address] Dr. Norbert Polk MCV (RBC) [Entitic vol] 98.0 fL Critically high 80.0-94 .0 [facility] Comment on above: Performed By: #### P OCGLUC #### [facility] [address] [place] [address] Dr. Norbert Polk MONO # 0.6 103/ul Normal 0.3-0.8 [facility] ospital Comment on above: Performed By: #### P OCGLUC #### [facility] [address] [place] [address] Dr. Norbert Polk Monocytes/100 WBC (Bld) 6.7 % Normal 1.7-12.0 [facility] Comment on above: Performed By: #### P OCGLUC #### [facility] [address] [place] [address] Dr. Norbert Polk NEUT # 5.7 103/ul Normal 1.4-6.5 [facility] Comment on above: Performed By: #### P OCGLUC #### [facility] [address] [place] [address] Dr. Norbert Polk Neutrophils/100 WBC (Bld) 59.6 % Normal 43.0-75.0 [facility] Comment on above: Performed By: #### P OCGLUC #### [facility] [address] [place] [address] Dr. Norbert Polk Platelet mean volume (Bld) [Entitic vol] 9.5 fL Normal 9.5-13.5 [facility] Comment on above: Performed By: #### P OCGLUC #### [facility] [address] [place] [address] Dr. Norbert Polk PLT 245 103/ul Normal 150-450 [facility] Comment on above: Performed By: #### P OCGLUC #### [facility] [address] [place], [place] [id number] Dr. Norbert Polk RBC 2.98 106/ul Critically low 4.70-6.10 [facility] Comment on above: Performed By: #### P OCGLUC #### [facility] [address] [address] [address] Norbert Polk WBC 9.6 103/ul Normal 4.0-11.0 [facility] Comment on above: Performed By: #### P OCGLUC #### [facility] [address] [place] [address] Dr. Norbert Polk OCC BLD IMMUNOASSAYon 2022 OCCULT BLOOD Positive Abnormal NEGATIVE [facility] Comment on above: Performed By: #### P OCGLUC #### [facility] [address] [place] [address] Dr. Norbert Polk POINT OF CARE GLUCOSEon 12-21 Glucose [Mass/Vol] 305 mg/dL Critically high 74-106 [facility] Comment on above: Performed By: #### C MP, CMADM, BNP #### [facility] [address] [place] [address] Dr. Norbert Polk PROF 14(COMP METB)on 023 Albumin [Mass/Vol] 2.6 g/dL Critically low 3.4-5.0 [facility] Comment on above: Performed By: #### B PATIENT TRANSPORTER, CMP #### [facility] [address] [place] [address] Dr. Norbert Polk Albumin/Globulin [Mass ratio] 0.7 {ratio} Normal [facility] Comment on above: Performed By: #### B PATIENT TRANSPORTER, CMP #### [facility] [address] [place] [address] Dr. Norbert Polk ALP [Catalytic activity/Vol] 61 U/L Normal 46-116 [facility] Comment on above: Performed By: #### B PATIENT TRANSPORTER, CMP #### [facility] [address] [place] [address] Dr. Norbert Polk ALT [Catalytic activity/Vol] 19 U/L Normal 16-63 [facility] Comment on above: Performed By: #### B PATIENT TRANSPORTER, CMP #### [facility] [address] [address] [address] Norbert Polk Anion gap [Moles/Vol] 12.8 mmol/L Normal [facility] Comment on above: Performed By: #### B PATIENT TRANSPORTER, CMP #### [facility] [address] [address] [address] Norbert Polk AST [Catalytic activity/Vol] 21 U/L Normal 15-37 [facility] Comment on above: Performed By: #### B PATIENT TRANSPORTER, CMP #### [facility] [address] [place] [address] Dr. Norbert Polk Bilirubin [Mass/Vol] 0.1 mg/dL Critically low 0.2-1.0 [facility] Comment on above: Performed By: #### B PATIENT TRANSPORTER, CMP #### [facility] [address] [place] [address] Dr. Norbert Polk Calcium [Mass/Vol] 9.1 mg/dL Normal 8.5-10.1 [facility] Comment on above: Performed By: #### B PATIENT TRANSPORTER, CMP #### [facility] [address] [place] [address] Dr. Norbert Polk Chloride [Moles/Vol] 105 mmol/L Normal 98-107 [facility] Comment on above: Performed By: #### B PATIENT TRANSPORTER, CMP #### [facility] [address] [place] [address] Dr. Norbert Polk CO2 [Moles/Vol] 26.4 mmol/L Normal 21.0-32.0 [facility] Comment on above: Performed By: #### B PATIENT TRANSPORTER, CMP #### [facility] [address] [place] [address] Dr. Norbert Polk Creatinine [Mass/Vol] 1.83 mg/dL Critically high 0.70-1.30 [facility] Comment on above: Performed By: #### B PATIENT TRANSPORTER, CMP #### [facility] [address] [place] [address] Dr. Norbert Polk EGFR-AF INDONESIAN 43 mL/min/1.73m2 Critically low >=60 [facility] Comment on above: Performed By: #### B PATIENT TRANSPORTER, CMP #### [facility] [address] [address] [address] Norbert Polk EGFR-NON AF INDONESIAN 35 mL/min/1.73m2 Critically low >=60 [facility] Comment on above: Performed By: #### B PATIENT TRANSPORTER, CMP #### [facility] [address] [address] [address] Norbert Polk Globulin (S) [Mass/Vol] 3.9 g/dL Normal [facility] Comment on above: Performed By: #### B PATIENT TRANSPORTER, CMP #### [facility] [address] [address] [address] Norbert Polk Glucose [Mass/Vol] 176 mg/dL Critically high 74-106 [facility] Comment on above: Performed By: #### B PATIENT TRANSPORTER, CMP #### [facility] [address] [address] [address] Norbert Polk Potassium [Moles/Vol] 5.2 mmol/L Critically high 3.5-5.1 [facility] Comment on above: Performed By: #### B PATIENT TRANSPORTER, CMP #### [facility] [address] [address] [address] Norbert Polk Protein [Mass/Vol] 6.5 g/dL Normal 6.4-8.2 [facility] Comment on above: Performed By: #### B PATIENT TRANSPORTER, CMP #### [facility] [address] [address] [address] Norbert Polk Sodium [Moles/Vol] 139 mmol/L Normal 136-145 [facility] Comment on above: Performed By: #### B PATIENT TRANSPORTER, CMP #### [facility] [address] [address] [address] Norbert Polk Urea nitrogen [Mass/Vol] 38.0 mg/dL Critically high 7.0-18 .0 [facility] Comment on above: Performed By: #### B PATIENT TRANSPORTER, CMP #### [facility] [address] [address] [address] Norbert Polk Urea nitrogen/Creatinine [Mass ratio] 20.8 mg/mg Normal [facility] Comment on above: Performed By: #### B PATIENT TRANSPORTER, CMP #### [facility] [address] [place] [address] Dr. Norbert Polk XR KUB 1 VIEWon 01-11-2023 XR KUB 1 VIEW EXAM: XR KUB 1 VIEW HISTORY: Abdominal pain COMPARISON: X-ray performed 07/27/2018. TECHNIQUE: Single supine view of the abdomen is obtained. FINDINGS: The bowel gas pattern is nonobstructive. No abnormally dilated loops of small bowel are evident. Gas is seen throughout the colon. No visceromegaly or suspicious calcifications. Pelvic surgical clips are present bilaterally. The osseous structures are grossly intact. IMPRESSION: Nonobstructive bowel gas pattern. Electronically authenticated by: ROLANDA SHIELDS Date: 2023-01-11 06:08 Normal [facility] l BNPon 01-10-2023 Natriuretic peptide B (Bld) [Mass/Vol] 881.0 pg/mL Normal <=1,800.0 The [facility] pital Comment on above: Performed By: #### P OCGLUC #### [facility] [address] [place] [address] Dr. Norbert Polk CBC AUTO DIFFon 01-10-2023 BASO # 0.0 103/ul Normal 0.0-0.1 The [facility] ospital Comment on above: Performed By: #### C MP, CMADM, BNP #### [facility] [address] [address] [address] Norbert Polk Basophils/100 WBC (Bld) 0.4 % Normal 0.2-2.0 [facility] Comment on above: Performed By: #### C MP, CMADM, BNP #### [facility] [address] [address] [address] Norbert Polk EO # 0.5 103/ul Normal 0.0-0.7 [facility] ospital Comment on above: Performed By: #### C MP, CMADM, BNP #### [facility] [address] [address] [address] Norbert Polk Eosinophils/100 WBC (Bld) 5.2 % Normal 0.9-7.0 [facility] Comment on above: Performed By: #### C MP, CMADM, BNP #### [facility] [address] [place] [address] Dr. Norbert Polk Erythrocyte distribution wid th (RBC) [Ratio] 14.5 % Normal 11.0-15.0 The [facility] Comment on above: Performed By: #### C MP, CMADM, BNP #### [facility] [address] [place] [address] Dr. Norbert Polk Hematocrit (Bld) [Volume fraction] 27.4 % Critically low 42.0-54.0 [facility] Comment on above: Performed By: #### C MP, CMADM, BNP #### [facility] [address] [place] [address] Dr. Norbert Polk Hemoglobin (Bld) [Mass/Vol] 8.6 g/dL Critically low 14.0 -18.0 [facility] Comment on above: Performed By: #### C MP, CMADM, BNP #### [facility] [address] [place] [address] Dr. Norbert Polk IG # 0.06 10e3/ul Critically high 0.00-0.03 The [facility] Comment on above: Performed By: #### C MP, CMADM, BNP #### [facility] [address] [place] [address] Dr. Norbert Polk IG % 0.7 % Critically high 0.0-0.5 The [facility] Comment on above: Performed By: #### C MP, CMADM, BNP #### [facility] [address] [place] [address] Dr. Norbert Polk LYMPH # 2.5 103/ul Normal 1.2-3.8 [facility] Comment on above: Performed By: #### C MP, CMADM, BNP #### [facility] [address] [place] [address] Dr. Norbert Polk Lymphocytes/100 WBC (Bld) 27.2 % Normal 20.5-60.0 [facility] Comment on above: Performed By: #### C MP, CMADM, BNP #### [facility] [address] [place] [address] Dr. Norbert Polk MANUAL DIFF REQ NO Normal [facility] Comment on above: Performed By: #### C MP, CMADM, BNP #### [facility] [address] [place] [address] Dr. Norbert Polk MCH (RBC) [Entitic mass] 30.9 pg Normal 25.9-34.0 [facility] Comment on above: Performed By: #### C MP, CMADM, BNP #### [facility] [address] [place] [address] Dr. Norbert Polk MCHC (RBC) [Mass/Vol] 31.4 g/dL Normal 29.9-35.2 [facility] Comment on above: Performed By: #### C MP, CMADM, BNP #### [facility] [address] [place] [address] Dr. Norbert Polk MCV (RBC) [Entitic vol] 98.6 fL Critically high 80.0-94 .0 [facility] Comment on above: Performed By: #### C MP, CMADM, BNP #### [facility] [address] [place] [address] Dr. Norbert Polk MONO # 0.6 103/ul Normal 0.3-0.8 [facility] Comment on above: Performed By: #### C MP, CMADM, BNP #### [facility] [address] [place] [address] Dr. Norbert Polk Monocytes/100 WBC (Bld) 6.4 % Normal 1.7-12.0 [facility] Comment on above: Performed By: #### C MP, CMADM, BNP #### [facility] [address] [place] [address] Dr. Norbert Polk NEUT # 5.5 103/ul Normal 1.4-6.5 [facility] ostal Comment on above: Performed By: #### C MP, CMADM, BNP #### [facility] [address] [place] [address] Dr. Norbert Polk Neutrophils/100 WBC (Bld) 60.1 % Normal 43.0-75.0 [facility] Comment on above: Performed By: #### C MINISTERIO HILL, BNP #### [facility] [address] [place] [address] Dr. Norbert Polk Platelet mean volume (Bld) [Entitic vol] 9.3 fL Critically low 9.5-13.5 [facility] pital Comment on above: Performed By: #### C JANELL HILLDM, BNP #### [facility] [address] [place] [address] Dr. Norbert Polk PLT 219 103/ul Normal 150-450 [facility] ospital Comment on above: Performed By: #### C MINISTERIO HILL, BNP #### [facility] [address] [place] [address] Dr. Norbert Polk RBC 2.78 106/ul Critically low 4.70-6.10 [facility] Comment on above: Performed By: #### C JANELL HILLDM, BNP #### [facility] [address] [place] [address] Dr. Norbert Polk WBC 9.2 103/ul Normal 4.0-11.0 [facility]spital Comment on above: Performed By: #### C JANELL HILLDM, BNP #### [facility] [address] [place] [address] Dr. Norbert Polk BASO # 0.0 103/ul Normal 0.0-0.1 [facility] ospital Comment on above: Performed By: #### B PATIENT TRANSPORTER, CMP #### [facility] [address] [place] [address] Dr. Norbert Polk Basophils/100 WBC (Bld) 0.3 % Normal 0.2-2.0 [facility] Comment on above: Performed By: #### B PATIENT TRANSPORTER, CMP #### [facility] [address] [place] [address] Dr. Norbert Polk EO # 0.5 103/ul Normal 0.0-0.7 [facility]ital Comment on above: Performed By: #### B PATIENT TRANSPORTER, CMP #### [facility] [address] [place] [address] Dr. Norbert Polk Eosinophils/100 WBC (Bld) 5.9 % Normal 0.9-7.0 [facility] Comment on above: Performed By: #### B PATIENT TRANSPORTER, CMP #### [facility] [address] [place] [address] Dr. Norbert Polk Erythrocyte distribution wid th (RBC) [Ratio] 14.3 % Normal 11.0-15.0 [facility] Comment on above: Performed By: #### B PATIENT TRANSPORTER, CMP #### [facility] [address] [place] [address] Dr. Norbert Polk Hematocrit (Bld) [Volume fraction] 27.2 % Critically low 42.0-54.0 [facility] Comment on above: Performed By: #### B PATIENT TRANSPORTER, CMP #### [facility] [address] [place] [address] Dr. Norbert Polk Hemoglobin (Bld) [Mass/Vol] 8.5 g/dL Critically low 14.0 -18.0 [facility] Comment on above: Performed By: #### B PATIENT TRANSPORTER, CMP #### [facility] [address] [place] [address] Dr. Norbert Polk IG # 0.08 10e3/ul Critically high 0.00-0.03 [facility] Comment on above: Performed By: #### B PATIENT TRANSPORTER, CMP #### [facility] [address] [place] [address] Dr. Norbert Polk IG % 0.9 % Critically high 0.0-0.5 [facility] Comment on above: Performed By: #### B PATIENT TRANSPORTER, CMP #### [facility] [address] [place] [address] Dr. Norbert Polk LYMPH # 2.4 103/ul Normal 1.2-3.8 [facility] Comment on above: Performed By: #### B PATIENT TRANSPORTER, CMP #### [facility] [address] [place] [address] Dr. Norbert Polk Lymphocytes/100 WBC (Bld) 27.6 % Normal 20.5-60.0 [facility] Comment on above: Performed By: #### B PATIENT TRANSPORTER, CMP #### [facility] [address] [place] [address] Dr. Norbert Polk MANUAL DIFF REQ NO Normal [facility] Comment on above: Performed By: #### B PATIENT TRANSPORTER, CMP #### [facility] [address] [place] [address] Dr. Norbert Polk MCH (RBC) [Entitic mass] 30.6 pg Normal 25.9-34.0 [facility] Comment on above: Performed By: #### B PATIENT TRANSPORTER, CMP #### [facility] [address] [place] [address] Dr. Norbert Polk MCHC (RBC) [Mass/Vol] 31.3 g/dL Normal 29.9-35.2 [facility] Comment on above: Performed By: #### B PATIENT TRANSPORTER, CMP #### [facility] [address] [place] [address] Dr. Norbert Polk MCV (RBC) [Entitic vol] 97.8 fL Critically high 80.0-94 .0 [facility] Comment on above: Performed By: #### B PATIENT TRANSPORTER, CMP #### [facility] [address] [place] [address] Dr. Norbert Polk MONO # 0.7 103/ul Normal 0.3-0.8 [facility]ital Comment on above: Performed By: #### B PATIENT TRANSPORTER, CMP #### [facility] [address] [place] [address] Dr. Norbert Polk Monocytes/100 WBC (Bld) 7.7 % Normal 1.7-12.0 [facility] Comment on above: Performed By: #### B PATIENT TRANSPORTER, CMP #### [facility] [address] [place] [address] Dr. Norbert Polk NEUT # 4.9 103/ul Normal 1.4-6.5 [facility] Comment on above: Performed By: #### B PATIENT TRANSPORTER, CMP #### [facility] [address] [place] [address] Dr. Norbert Polk Neutrophils/100 WBC (Bld) 57.6 % Normal 43.0-75.0 [facility] Comment on above: Performed By: #### B PATIENT TRANSPORTER, CMP #### [facility] [address] [address] [address] Norbert Polk Platelet mean volume (Bld) [Entitic vol] 9.5 fL Normal 9.5-13.5 [facility] Comment on above: Performed By: #### B PATIENT TRANSPORTER, CMP #### [facility] [address] [address] [address] Norbert Polk PLT 243 103/ul Normal 150-450 [facility] Comment on above: Performed By: #### B PATIENT TRANSPORTER, CMP #### [facility] [address] [place] [address] Dr. Norbert Polk RBC 2.78 106/ul Critically low 4.70-6.10 [facility] Comment on above: Performed By: #### B PATIENT TRANSPORTER, CMP #### [facility] [address] [place] [address] Dr. Norbert Polk WBC 8.6 103/ul Normal 4.0-11.0 [facility] Comment on above: Performed By: #### B PATIENT TRANSPORTER, CMP #### [facility] [address] [place] [address] Dr. Norbert Polk POINT OF CARE GLUCOSEon 12-21 Glucose [Mass/Vol] 176 mg/dL Critically high 74-106 [facility] Comment on above: Performed By: #### B PATIENT TRANSPORTER, CMP #### [facility] [address] [place] [address] Dr. Norbert Polk Glucose [Mass/Vol] 181 mg/dL Critically high 74-106 [facility] Comment on above: Performed By: #### P OCGLUC #### [facility] [address] [place] [address] Dr. Norbert Polk Glucose [Mass/Vol] 309 mg/dL Critically high 74-106 [facility] Comment on above: Performed By: #### B PATIENT TRANSPORTER, CMP #### [facility] [address] [place] [address] Dr. Norbert Polk PROF 14(COMP METB)on 023 Albumin [Mass/Vol] 2.4 g/dL Critically low 3.4-5.0 [facility] Comment on above: Performed By: #### B PATIENT TRANSPORTER, CMP #### [facility] [address] [place] [address] Dr. Norbert Polk Albumin/Globulin [Mass ratio] 0.6 {ratio} Normal [facility] Comment on above: Performed By: #### B PATIENT TRANSPORTER, CMP #### [facility] [address] [place] [address] Dr. Norbert Polk ALP [Catalytic activity/Vol] 57 U/L Normal 46-116 [facility] Comment on above: Performed By: #### B PATIENT TRANSPORTER, CMP #### [facility] [address] [place] [address] Dr. Norbert Polk ALT [Catalytic activity/Vol] 17 U/L Normal 16-63 [facility] Comment on above: Performed By: #### B PATIENT TRANSPORTER, CMP #### [facility] [address] [place] [address] Dr. Norbert Polk Anion gap [Moles/Vol] 11.1 mmol/L Normal [facility] Comment on above: Performed By: #### B PATIENT TRANSPORTER, CMP #### [facility] [address] [place] [address] Dr. Norbert Polk AST [Catalytic activity/Vol] 13 U/L Critically low 15- 37 [facility] Comment on above: Performed By: #### B PATIENT TRANSPORTER, CMP #### [facility] [address] [place] [address] Dr. Norbert Polk Bilirubin [Mass/Vol] 0.1 mg/dL Critically low 0.2-1.0 [facility] Comment on above: Performed By: #### B PATIENT TRANSPORTER, CMP #### [facility] [address] [place] [address] Dr. Norbert Polk Calcium [Mass/Vol] 8.8 mg/dL Normal 8.5-10.1 [facility] Comment on above: Performed By: #### B PATIENT TRANSPORTER, CMP #### [facility] [address] [address] [address] Norbert Polk Chloride [Moles/Vol] 112 mmol/L Critically high 98-107 [facility] Comment on above: Performed By: #### B PATIENT TRANSPORTER, CMP #### [facility] [address] [address] [address] Norbert Polk CO2 [Moles/Vol] 25.9 mmol/L Normal 21.0-32.0 [facility] Comment on above: Performed By: #### B PATIENT TRANSPORTER, CMP #### [facility] [address] [address] [address] Norbert Polk Creatinine [Mass/Vol] 1.94 mg/dL Critically high 0.70-1.30 [facility] Comment on above: Performed By: #### B PATIENT TRANSPORTER, CMP #### [facility] [address] [place] [address] Dr. Norbert Polk EGFR-AF INDONESIAN 40 mL/min/1.73m2 Critically low >=60 [facility] Comment on above: Performed By: #### B PATIENT TRANSPORTER, CMP #### [facility] [address] [place] [address] Dr. Norbert Polk EGFR-NON AF INDONESIAN 33 mL/min/1.73m2 Critically low >=60 [facility] Comment on above: Performed By: #### B PATIENT TRANSPORTER, CMP #### [facility] [address] [place] [address] Dr. Norbert Polk Globulin (S) [Mass/Vol] 3.7 g/dL Normal [facility] Comment on above: Performed By: #### B PATIENT TRANSPORTER, CMP #### [facility] [address] [place] [address] Dr. Norbert Polk Glucose [Mass/Vol] 91 mg/dL Normal 74-106 [facility] Comment on above: Performed By: #### B PATIENT TRANSPORTER, CMP #### [facility] [address] [address] [address] Norbert Polk Potassium [Moles/Vol] 5.0 mmol/L Normal 3.5-5.1 [facility] Comment on above: Performed By: #### B PATIENT TRANSPORTER, CMP #### [facility] [address] [place] [address] Dr. Norbert Polk Protein [Mass/Vol] 6.1 g/dL Critically low 6.4-8.2 [facility] Comment on above: Performed By: #### B PATIENT TRANSPORTER, CMP #### [facility] [address] [place] [address] Dr. Norbert Polk Sodium [Moles/Vol] 144 mmol/L Normal 136-145 [facility] Comment on above: Performed By: #### B PATIENT TRANSPORTER, CMP #### [facility] [address] [place] [address] Dr. Norbert Polk Urea nitrogen [Mass/Vol] 48.0 mg/dL Critically high 7.0-18 .0 [facility] Comment on above: Performed By: #### B PATIENT TRANSPORTER, CMP #### [facility] [address] [place] [address] Dr. Norbert Polk Urea nitrogen/Creatinine [Mass ratio] 24.7 mg/mg Normal [facility] Comment on above: Performed By: #### B PATIENT TRANSPORTER, CMP #### [facility] [address] [place] [address] Dr. Norbert Polk BNPon 01-09-2023 Natriuretic peptide B (Bld) [Mass/Vol] 1067.0 pg/mL Normal <=1,800.0 [facility] Comment on above: Performed By: #### C MP, CMADM, BNP #### [facility] [address] [place] [address] Dr. Norbert Polk CARDIAC JENNA ADMITon 023 CK [Catalytic activity/Vol] 50 U/L Normal 39-308 [facility] Comment on above: Performed By: #### C MP, CMADM, BNP #### [facility] [address] [place] [address] Dr. Norbert Polk CK.MB [Mass/Vol] 2.37 ng/mL Normal <=3.60 [facility] Comment on above: Performed By: #### C MP, CMADM, BNP #### [facility] [address] [place] [address] Dr. Norbert Polk HSTROP 10.4 pg/mL Normal 4.0-76.1 [facility] Comment on above: Result Comment: CUT- OFF POINTS HAVE BEEN ESTABLISHED BASED ON THE FOURTH UNIVERSAL DEFINITIONS OF MYOCARDIAL INFARCTION. THE UPPER REFERENCE LIMIT (URL) OF TROPONIN, DEFINED THE 99TH PERCENTILE OF cTnI DISTRIBUTION IN A REFERENCE POPULATION, HAS BEEN CONFIRMED THE DECISION THRESHOLD FOR [place] DIAGNOSIS. Performed By: #### C MP, CMADM, BNP #### [facility] [address] [place] [address] Dr. Norbert Polk SILVIO 257 ng/mL Critically high 16-96 [facility] Comment on above: Performed By: #### C MP, CMADM, BNP #### [facility] [address] [place] [address] Dr. Norbert Polk CBC AUTO DIFFon 01-09-2023 BASO # 0.1 103/ul Normal 0.0-0.1 [facility] Comment on above: Performed By: #### B PATIENT TRANSPORTER, CMP #### [facility] [address] [place] [address] Dr. Norbert Polk Basophils/100 WBC (Bld) 0.4 % Normal 0.2-2.0 [facility] Comment on above: Performed By: #### B PATIENT TRANSPORTER, CMP #### [facility] [address] [place] [address] Dr. Norbert Polk EO # 0.7 103/ul Normal 0.0-0.7 [facility] Comment on above: Performed By: #### B PATIENT TRANSPORTER, CMP #### [facility] [address] [place] [address] Dr. Norbert Polk Eosinophils/100 WBC (Bld) 6.3 % Normal 0.9-7.0 [facility] Comment on above: Performed By: #### B PATIENT TRANSPORTER, CMP #### [facility] [address] [place] [address] Dr. Norbert Polk Erythrocyte distribution wid th (RBC) [Ratio] 14.1 % Normal 11.0-15.0 [facility] Comment on above: Performed By: #### B PATIENT TRANSPORTER, CMP #### [facility] [address] [place] [address] Dr. Norbert Polk Hematocrit (Bld) [Volume fraction] 33.2 % Critically low 42.0-54.0 [facility] Comment on above: Performed By: #### B PATIENT TRANSPORTER, CMP #### [facility] [address] [place] [address] Dr. Norbert Polk Hemoglobin (Bld) [Mass/Vol] 10.4 g/dL Critically low 14.0 -18.0 [facility] Comment on above: Performed By: #### B PATIENT TRANSPORTER, CMP #### [facility] [address] [place] [address] Dr. Norbert Polk IG # 0.08 10e3/ul Critically high 0.00-0.03 [facility] Comment on above: Performed By: #### B PATIENT TRANSPORTER, CMP #### [facility] [address] [place] [address] Dr. Norbert Polk IG % 0.7 % Critically high 0.0-0.5 [facility] Comment on above: Performed By: #### B PATIENT TRANSPORTER, CMP #### [facility] [address] [place] [address] Dr. Norbert Polk LYMPH # 2.7 103/ul Normal 1.2-3.8 [facility] Comment on above: Performed By: #### B PATIENT TRANSPORTER, CMP #### [facility] [address] [place] [address] Dr. Norbert Polk Lymphocytes/100 WBC (Bld) 24.1 % Normal 20.5-60.0 [facility] Comment on above: Performed By: #### B PATIENT TRANSPORTER, CMP #### [facility] [address] [place] [address] Dr. Norbert Polk MANUAL DIFF REQ NO Normal [facility] Comment on above: Performed By: #### B PATIENT TRANSPORTER, CMP #### [facility] [address] [place] [address] Dr. Norbert Polk MCH (RBC) [Entitic mass] 30.4 pg Normal 25.9-34.0 [facility] Comment on above: Performed By: #### B PATIENT TRANSPORTER, CMP #### [facility] [address] [place] [address] Dr. Norbert Polk MCHC (RBC) [Mass/Vol] 31.3 g/dL Normal 29.9-35.2 [facility] Comment on above: Performed By: #### B PATIENT TRANSPORTER, CMP #### [facility] [address] [place] [address] Dr. Norbert Polk MCV (RBC) [Entitic vol] 97.1 fL Critically high 80.0-94 .0 [facility] Comment on above: Performed By: #### B PATIENT TRANSPORTER, CMP #### [facility] [address] [place] [address] Dr. Norbert Polk MONO # 0.8 103/ul Normal 0.3-0.8 [facility] Comment on above: Performed By: #### B PATIENT TRANSPORTER, CMP #### [facility] [address] [place] [address] Dr. Norbert Polk Monocytes/100 WBC (Bld) 7.2 % Normal 1.7-12.0 [facility] Comment on above: Performed By: #### B PATIENT TRANSPORTER, CMP #### [facility] [address] [place] [address] Dr. Norbert Polk NEUT # 7.0 103/ul Critically high 1.4-6.5 [facility] Comment on above: Performed By: #### B PATIENT TRANSPORTER, CMP #### [facility] [address] [place] [address] Dr. Norbert Polk Neutrophils/100 WBC (Bld) 61.3 % Normal 43.0-75.0 [facility] Comment on above: Performed By: #### B PATIENT TRANSPORTER, CMP #### [facility] [address] [place] [address] Dr. Norbert Polk Platelet mean volume (Bld) [Entitic vol] 9.4 fL Critically low 9.5-13.5 [facility] Comment on above: Performed By: #### B PATIENT TRANSPORTER, CMP #### [facility] [address] [address] [address] Norbert Polk PLT 287 103/ul Normal 150-450 [facility] Comment on above: Performed By: #### B PATIENT TRANSPORTER, CMP #### [facility] [address] [place], [place] [address] Dr. Norbert Polk RBC 3.42 106/ul Critically low 4.70-6.10 [facility] Comment on above: Performed By: #### B PATIENT TRANSPORTER, CMP #### [facility] [address] [address] [address] Norbert Polk WBC 11.4 103/ul Critically high 4.0-11.[address] [facility] Comment on above: Performed By: #### B PATIENT TRANSPORTER, CMP #### [facility] [address] [place] [address] Dr. Norbert Polk CULTURE BLOODon 01-09-2023 Microscopic examination of blood, culture Culture Observations: NO GROWTH AT 5 DAYS. Normal [facility] on above: Performed By: #### B PATIENT TRANSPORTER, CMP #### [facility] [address] [place] [address] Dr. Norbert Polk [facility]21 SARS-CoV-2 (COVID-19) RNA KAYLIN+probe Ql (Unsp spec) Not detected Normal NOT DETECTED [facility] Comment on above: Result Comment: When diagnostic testing is negative, the possibility of a false negative should be considered in the context of a patient's recent exposures and the presence of clinical signs and symptoms consistent with SARS-CoV-2. This test is not yet approved or cleared by the [place] FDA. When there are no FDA-approved or cleared tests available, and other criteria are met, FDA can make tests available under an emergency access mechanism called an Emergency Use Authorization (EUA). The EUA for this test is supported by the Hand [employer] of Health and Human Service's declaration that circumstances exist to justify the emergency use of in vitro diagnostics for the detection and/or diagnosis of the virus that causes COVID-19. This EUA will remain in effect for the duration of the COVID-19 declaration justifying emergency of IVDs, unless it is terminated or revoked by the FDA (after which the test may no longer be used). Performed By: #### C MP, CMADM, BNP #### [facility] [address] [place] [address] Dr. Norbert NAVARRO URINE PROFILEon 3 Bilirubin Ql (U) Negative Normal NEGATIVE [facility] Comment on above: Performed By: #### B PATIENT TRANSPORTER, CMP #### [facility] [address] [place] [address] Dr. Norbert Polk Clarity (U) CLEAR Normal CLEAR [facility] Comment on above: Performed By: #### B PATIENT TRANSPORTER, CMP #### [facility] [address] [place] [address] Dr. Norbert Polk Color (U) LT. YELLOW Normal YELLOW [facility] Comment on above: Performed By: #### B PATIENT TRANSPORTER, CMP #### [facility] [address] [place] [address] Dr. Norbert Polk ERUAHD A micrscopic examina tion will be performed if indicated. Normal [facility] Comment on above: Performed By: #### B PATIENT TRANSPORTER, CMP #### [facility] [address] [place] [address] Dr. Norbert Polk Glucose Ql (U) Negative Normal NEGATIVE [facility] Comment on above: Performed By: #### B PATIENT TRANSPORTER, CMP #### [facility] [address] [place] [address] Dr. Norbert Polk Hemoglobin Ql (U) Negative Normal NEGATIVE [facility] Comment on above: Performed By: #### B PATIENT TRANSPORTER, CMP #### [facility] [address] [place] [address] Dr. Norbert Polk Ketones Ql (U) Negative Normal NEGATIVE [facility] Comment on above: Performed By: #### B PATIENT TRANSPORTER, CMP #### [facility] [address] [place] [address] Dr. Norbert Polk LEUKOCYTES Negative Normal NEGATIVE [facility] Comment on above: Performed By: #### B PATIENT TRANSPORTER, CMP #### [facility] [address] [place] [address] Dr. Norbert Polk Nitrite Ql (U) Negative Normal NEGATIVE [facility] Comment on above: Performed By: #### B PATIENT TRANSPORTER, CMP #### [facility] [address] [place] [address] Dr. Norbert Polk pH (U) 6.0 [pH] Normal 5-9 [facility] Comment on above: Performed By: #### B PATIENT TRANSPORTER, CMP #### [facility] [address] [place] [address] Dr. Norbert Polk SPEC GRAVITY 1.010 Normal 1.005-<=1.025 [facility] Comment on above: Performed By: #### B PATIENT TRANSPORTER, CMP #### [facility] [address] [place] [address] Dr. Norbert Polk UA PROTEIN Negative Normal NEGATIVE/ TRACE [facility] Comment on above: Performed By: #### B PATIENT TRANSPORTER, CMP #### [facility] [address] [place] [address] Dr. Norbert Polk UR MICRO IND NOT INDICATED Normal [facility] Comment on above: Performed By: #### B PATIENT TRANSPORTER, CMP #### [facility] [address] [place] [address] Dr. Norbert Polk Urobilinogen Qn (U) 0.2 {Karan'U}/dL Normal 0.2 - 1. 0 [facility] Comment on above: Performed By: #### B PATIENT TRANSPORTER, CMP #### [facility] [address] [place] [address] Dr. Norbert Polk LACTATE/LACTIC ACIDon 2022 Lactate [Moles/Vol] 2.5 mmol/L Critically high 0.4-2.0 [facility] Comment on above: Performed By: #### C MP, CMADM, BNP #### [facility] [address] [place] [address] Dr. Norbert Polk Lactate [Moles/Vol] 3.8 mmol/L Critically high 0.4-2.0 [facility] Comment on above: Performed By: #### P OCGLUC #### [facility] [address] [place] [address] Dr. Norbert Polk POINT OF CARE GLUCOSEon 12-21 Glucose [Mass/Vol] 197 mg/dL Critically high 74-106 [facility] Comment on above: Performed By: #### B PATIENT TRANSPORTER, CMP #### [facility] [address] [address] [address] Norbert Polk PROF 14(COMP METB)on 023 Albumin [Mass/Vol] 3.0 g/dL Critically low 3.4-5.0 [facility] Comment on above: Performed By: #### C MP, CMADM, BNP #### [facility] [address] [address] [address] Norbert Polk Albumin/Globulin [Mass ratio] 0.7 {ratio} Normal [facility] Comment on above: Performed By: #### C MP, CMADM, BNP #### [facility] [address] [address] [address] Norbert Polk ALP [Catalytic activity/Vol] 70 U/L Normal 46-116 [facility] Comment on above: Performed By: #### C MP, CMADM, BNP #### [facility] [address] [address] [address] Norbert Polk ALT [Catalytic activity/Vol] 22 U/L Normal 16-63 [facility] Comment on above: Performed By: #### C MP, CMADM, BNP #### [facility] [address] [address] [address] Norbert Polk Anion gap [Moles/Vol] 15.3 mmol/L Normal [facility] Comment on above: Performed By: #### C MP, CMADM, BNP #### [facility] [address] [address] [address] Norbert Polk AST [Catalytic activity/Vol] 16 U/L Normal 15-37 [facility] Comment on above: Performed By: #### C MP, CMADM, BNP #### [facility] [address] [address] [address] Norbert Polk Bilirubin [Mass/Vol] 0.2 mg/dL Normal 0.2-1.0 [facility] Comment on above: Performed By: #### C MP, CMADM, BNP #### [facility] [address] [address] [address] Norbert Polk Calcium [Mass/Vol] 10.1 mg/dL Normal 8.5-10.1 [facility] Comment on above: Performed By: #### C MP, CMADM, BNP #### [facility] [address] [place] [address] Dr. Norbert Polk Chloride [Moles/Vol] 106 mmol/L Normal 98-107 [facility] Comment on above: Performed By: #### C MP, CMADM, BNP #### [facility] [address] [place] [address] Dr. Norbert Polk CO2 [Moles/Vol] 24.6 mmol/L Normal 21.0-32.0 [facility] Comment on above: Performed By: #### C MP, CMADM, BNP #### [facility] [address] [place] [address] Dr. Norbert Polk Creatinine [Mass/Vol] 2.40 mg/dL Critically high 0.70-1.30 [facility] Comment on above: Performed By: #### C MP, CMADM, BNP #### [facility] [address] [place] [address] Dr. Norbert Polk EGFR-AF INDONESIAN 31 mL/min/1.73m2 Critically low >=60 [facility] Comment on above: Performed By: #### C MP, CMADM, BNP #### [facility] [address] [place] [address] Dr. Norbert Polk EGFR-NON AF INDONESIAN 26 mL/min/1.73m2 Critically low >=60 [facility] Comment on above: Performed By: #### C MP, CMADM, BNP #### [facility] [address] [place] [address] Dr. Norbert Polk Globulin (S) [Mass/Vol] 4.5 g/dL Normal [facility] Comment on above: Performed By: #### C MP, CMADM, BNP #### [facility] [address] [address] [address] Norbert Polk Glucose [Mass/Vol] 174 mg/dL Critically high 74-106 [facility] Comment on above: Performed By: #### C MP, CMADM, BNP #### [facility] [address] [address] [address] Norbert Polk Potassium [Moles/Vol] 4.9 mmol/L Normal 3.5-5.1 [facility] Comment on above: Performed By: #### C MP, CMADM, BNP #### [facility] [address] [address] [address] Norbert Polk Protein [Mass/Vol] 7.5 g/dL Normal 6.4-8.2 [facility] Comment on above: Performed By: #### C MP, CMADM, BNP #### [facility] [address] [address] [address] Norbert Polk Sodium [Moles/Vol] 141 mmol/L Normal 136-145 [facility] Comment on above: Performed By: #### C MP, CMADM, BNP #### [facility] [address] [address] [address] Norbert Polk Urea nitrogen [Mass/Vol] 60.0 mg/dL Critically high 7.0-18 .0 [facility] Comment on above: Performed By: #### C MP, CMADM, BNP #### [facility] [address] [address] [address] Norbert Polk Urea nitrogen/Creatinine [Mass ratio] 25.0 mg/mg Normal [facility] Comment on above: Performed By: #### C MP, CMADM, BNP #### [facility] [address] [address] [address] Norbert Polk PROTIMEon 01-09-2023 INR Coag (PPP) [Relative time] 1.02 {INR} Normal [facility] Comment on above: Performed By: #### P OCGLUC #### [facility] [address] [address] [address] Norbert Polk INR GUIDELINES SEE BELOW Normal [facility] Comment on above: Result Comment: BECKIE RED INR: 2.0 - 3.0 CONDITIONS NOT LISTED BELOW 2.5 - 3.5 FOR PROSTHETIC HEART VALVE REPLACEMENT 2.5 - 3.5 RECURRENT THROMBOSIS Performed By: #### P OCGLUC #### [facility] [address] [place] [address] Dr. Norbert Polk PT Coag (PPP) [Time] 10.8 s Normal 9.0-11.6 [facility] Comment on above: Performed By: #### P OCGLUC #### [facility] [address] [place] [address] Dr. Norbert Polk PTTon 01-09-2023 aPTT Coag (Bld) [Time] 25.2 s Normal 22.3-36.2 [facility] Comment on above: Performed By: #### P OCGLUC #### [facility] [address] [place] [address] Dr. Norbert Polk SPUTUM GRAM STAINon 01-10-20 23 COMMENTS NO ORGANISMS OBSERVED Normal [facility] Comment on above: Performed By: #### B PATIENT TRANSPORTER, CMP #### [facility] [address] [place] [address] Dr. Norbert Polk DIPHTHEROIDS Normal [facility] Comment on above: Performed By: #### B PATIENT TRANSPORTER, CMP #### [facility] [address] [place] [address] Dr. Norbert Polk EPITHELIALS <25 Normal [facility] Comment on above: Performed By: #### B PATIENT TRANSPORTER, CMP #### [facility] [address] [place] [address] Dr. Norbert Polk FUNGAL ELEMENTS Normal [facility] Comment on above: Performed By: #### B PATIENT TRANSPORTER, CMP #### [facility] [address] [place] [address] Dr. Norbert SHAW NEG BACILLI Normal [facility] Comment on above: Performed By: #### B PATIENT TRANSPORTER, CMP #### [facility] [address] [place] [address] Dr. Norbert SHAW NEG DIPPLOCOCCI Normal [facility] Comment on above: Performed By: #### B PATIENT TRANSPORTER, CMP #### [facility] [address] [address] [address] Norbert Polk GRAM POS BACILLI Normal [facility] Comment on above: Performed By: #### B PATIENT TRANSPORTER, CMP #### [facility] [address] [address] [address] Norbert Polk GRAM POSITIVE COCCI Normal [facility] Comment on above: Performed By: #### B PATIENT TRANSPORTER, CMP #### [facility] [address] [address] [address] Norbert Polk WBC (Bld) [#/Vol] 10*3/uL Normal [facility] Comment on above: Performed By: #### B PATIENT TRANSPORTER, CMP #### [facility] [address] [address] [address] Norbert Polk XR CHEST 1 Von 01-09-2023 XR CHEST 1 V EXAMINATION: XR CHES T 1 V HISTORY: SHORTNESS OF BREATH COMPARISON: 11/29/2022 TECHNIQUE: AP portable erect FINDINGS: LUNGS: Low lung volumes. Mild bibasilar infiltrates left greater than right. VASCULATURE: No increased pulmonary vasculature. PLEURA: No pneumothorax, effusion, or pleural thickening. CARDIAC: No cardiomegaly or cardiac silhouette abnormality. MEDIASTINUM: No visible mass or adenopathy. Left bipolar pacemaker BONES: No fracture or visible bone lesion. OTHER: Negative. IMPRESSION: Low volume exam. Mild bibasilar infiltrates Electronically authenticated by: KORI KERR Date: 2023-01-09 15:12 Normal [facility] CT CSPINE WO CONon 3 CT CSPINE WO CON EXAMINATION: CT CSPI NE WO CON HISTORY: HEADACHE COMPARISON: None. TECHNIQUE: CT Cervical spine without IV contrast. Coronal and sagittal reformations were performed. Dose reduction techniques were achieved by using automated exposure control and/or adjustment of mA and/or kV according to patient size and/or use of iterative reconstruction technique. FINDINGS: No acute fracture or malalignment. Mild to moderate multilevel degenerative changes are present in the cervical spine. There is moderate right-sided neural foraminal stenosis at the C3-C4 and C4-C5 levels, otherwise, mild multilevel degenerative stenoses are present at multiple levels. Unremarkable appearance of the paraspinal soft tissues. IMPRESSION: 1. No acute abnormality. 2. Mild to moderate multilevel degenerative changes. Electronically authenticated by: JANET EDMONDSON Date: 2023-01-05 11:50 Normal [facility] CT STROKE HEAD WOon 01-06-20 CT STROKE HEAD WO EXAMINATION: CT STRO KE HEAD WO HISTORY: Clouded consciousness (finding) ; fall, asymmetric pupils COMPARISON: No relevant comparison available. TECHNIQUE: Axial CT images were obtained without IV contrast. Dose reduction techniques were achieved by using automated exposure control and/or adjustment of mA and/or kV according to patient size and/or use of iterative reconstruction technique. FINDINGS: BRAIN: No edema, hemorrhage, mass, acute infarction, or inappropriate atrophy. CSF SPACES: No hydrocephalus, subarachnoid hemorrhage, or mass. Appropriate for age. SKULL: No fracture, mass, or other significant visible lesion. SINUSES: Multiple mucoceles and areas of mucosal thickening within the paranasal sinuses. Fluid level within the right maxillary sinus. Complete opacification of the right mastoid air cells and suspected fluid within the right middle ear. ORBITS: No appreciable abnormality on the limited views. OTHER: Negative IMPRESSION: 1. No intracranial hemorrhage, hydrocephalus, or mass. 2. Chronic sinusitis, with possible acute right maxillary sinusitis. 3. Right mastoiditis and possibly otitis media. Findings discussed with Kaity in the emergency department to be relayed to Dr. Aguilar. Electronically authenticated by: VALENTÍN ZIMMERMAN Date: 2023-01-05 11:51 Normal [facility] Office Visiton 01-01-2023 Follow-up visit [id number] Kd Ferreira 1940 M Date Provider Department Center 01/01/2023 ELYSE PATEL [facility] Family History Problem Relation Age of Onset Cancer Father Alcohol abuse Father Family Status - Relation Status Age at Father Level of Service:[address] [place] OFFICE/OUTPATIENT ESTABLISHED HIGH [facility] 40-54 MIN Reason for Visit and Comments: Atrial Fibrillation [80] Coronary Artery Disease [187] Congestive Heart Failure [127] history of GI bleed [Other] Normal [facility] Coding Summary.on 12-23-2022 Coding Summary. [id number] [file] bGFw (more content not included)... Normal [facility] Living Will/POAon 12-19-2022 Living Will/POA [id number] Normal [facility] Ambulatory Visit Summaryon 0 12-18-2022 Ambulatory Visit Summary JOSE FERREIRA :1940 Visit Date:12/18/2022 Ambulatory Visit Instructions Your Diagnosis H/O prostate cancer Mixed incontinence Kidney stone Your Care Team Attending Physician - YADY SALCIDO, Ozzy Velasquez Primary Care Physician - Farzad Dodson MD This Is Your Medications List Contact prescribing physician if questions or concerns albuterol alprazolam (alprazolam 1 mg Tab) aspirin (aspirin 325 mg Tab) atropine-diphenoxylate (Lomotil) calcium-vitamin D (Super Calcium 600 + D3 400) cholecalciferol (Vitamin D3) cilostazol (cilostazol 50 mg Tab) colesevelam (Welchol) fluticasone nasal (fluticasone 0.05 mg/inh Nasal Beatrice) furosemide (furosemide 20 mg Tab) gabapentin (gabapentin 100 mg Cap) insulin glargine (Lantus) insulin lispro (Humalog) lovastatin magnesium aspartate metformin metoprolol (metoprolol 25 mg ER Tab) mirtazapine (mirtazapine 45 mg oral tablet) omeprazole revefenacin (Yupelri) sodium zirconium cyclosilicate (Lokelma) tramadol Procedures Performed TRUS/BX (01/19/1999), CYSTO (11/15/1998), RADICAL RETROPUBIC PROSTATECTOMY W/ BPLND (11/15/1998), right ESWL (11/12/1998), right ESWL (10/01/1998), TRUS/BX (09/23/1996), Amputation of toe, Cardiac pacemaker, Cataract surgery, left ESWL, Procedure on wrist, Release of trigger finger, repair of eardrum. Discharge Vitals Heart Rate (Peripheral) 80 Respiratory Rate 16 Blood Pressure 121/74 Height 185 cm Height 73 in Weight 81.2 kg Weight 178.64 lb BMI 23.73 What to do next Scheduled Follow-Up Appointments Sunday 11:15 AM EDT With: YADY SALCIDO, Ozzy Velasquez Where: [facility] Shakir Comer [facility] CHEMISTRYOrdered By: SYSTEM SYSTEM on 12-18-2022 Prostate specific Ag [Mass/Vol] 0.5 ng/mL Normal 0.1 - 3.5 ng/mL [facility] Remisol PSA Totalon 12-18-2022 Prostate specific Ag [Mass/Vol] 0.5 ng/mL Normal 0.1- 3.5 [facility] Comment on above: Result Comment: The concentration of PSA determined by different manufacturers can vary due to differences in assay methods and reagent specificity. Values obtained from different assay methods cannot be used interchangeably. The methodology used for this result was chemiluminescence using [employer]'s Access [employer] PSA reagent. Performed By: #### 1 [id number] ####[facility] [id number] [place] [address] Patient Educationon 12-18-19 Patient Education Urology Dietary Guidelines to Help Prevent Kidney Stones Kidney stones are deposits of minerals and salts that form inside your kidneys. Your risk of developing kidney stones may be greater depending on your diet, your lifestyle, the medicines you take, and whether you have certain medical conditions. Most people can reduce their chances of developing kidney stones by following the instructions below. Depending on your overall health and the type of kidney stones you tend to develop, your dietitian may give you more specific instructions. What are tips for following this plan? Reading food labels ? Choose foods with no salt added or low-salt labels. Limit your sodium intake to less than 1500 mg per day. ? Choose foods with calcium for each meal and snack. Try to eat about 300 mg of calcium at each meal. Foods that contain 200?500 mg of calcium per serving include: ? 8 oz (237 ml) of milk, fortified nondairy milk, and fortified fruit juice. ? 8 oz (237 ml) of kefir, yogurt, and soy yogurt. ? 4 oz (118 ml) of tofu. ? 1 oz of cheese. ? 1 cup (300 g) of dried figs. ? 1 cup (91 g) of cooked broccoli. ? 1?3 oz can of sardines or mackerel. ? Most people need 1000 to 1500 mg of calcium each day. Talk to your dietitian about how much calcium is recommended for you. Shopping ? Buy plenty of fresh fruits and vegetables. Most people do not need to avoid fruits and vegetables, even if they contain nutrients that may contribute to kidney stones. ? When shopping for convenience foods, choose: ? Whole pieces of fruit. ? Premade salads with dressing on the side. ? Low-fat fruit and yogurt smoothies. ? Avoid buying frozen meals or prepared deli foods. ? Look for foods with live cultures, such as yogurt and kefir. Cooking ? Do not add salt to food when cooking. Place a salt shaker on the table and allow each person to add his or her own salt to taste. ? Use vegetable protein, such as beans, textured vegetable protein (TVP), or tofu instead of meat in pasta, casseroles, and soups. Meal planning ? Eat less salt, if told by your dietitian. To do this: ? Avoid eating processed or premade food. ? Avoid eating fast food. ? Eat less animal protein, including cheese, meat, poultry, or fish, if told by your dietitian. To do this: ? Limit the number of times you have meat, poultry, fish, or cheese each week. Eat a diet free of meat at least 2 days a week. ? Eat only one serving each day of meat, poultry, fish, or seafood. ? When you prepare animal protein, cut pieces into small portion sizes. For most meat and fish, one serving is about the size of one deck of cards. ? Eat at least 5 servings of fresh fruits and vegetables each day. To do this: ? Keep fruits and vegetables on hand for snacks. ? Eat 1 piece of fruit or a handful of berries with breakfast. ? Have a salad and fruit at lunch. ? Have two kinds of vegetables at dinner. ? Limit foods that are high in a substance called oxalate. These include: ? Spinach. ? Rhubarb. ? Beets. ? Potato chips and lithuanian fries. ? Nuts. ? If you regularly take a diuretic medicine, make sure to eat at least 1?2 fruits or vegetables high in potassium each day. These include: ? Avocado. ? Banana. ? Cavalier, prune, carrot, or tomato juice. ? Baked potato. ? Cabbage. ? Beans and split peas. General instructions ? Drink enough fluid to keep your urine clear or pale yellow. This is the most important thing you can do. ? Talk to your health care provider and dietitian about taking daily supplements. Depending on your health and the cause of your kidney stones, you may be advised: ? Not to take supplements with vitamin C. ? To take a calcium supplement. ? To take a daily probiotic supplement. ? To take other supplements such as magnesium, fish oil, or vitamin B6. ? Take all medicines and supplements as told by your health care provider. ? Limit alcohol intake to no more than 1 drink a day for non women and 2 drinks a day for men. One drink equals 12 oz of beer, 5 oz of wine, or 1? oz of hard liquor. ? Lose weight if told by your health care provider. Work with your dietitian to find strategies and an eating plan that works best for you. What foods are not recommended? Limit your intake of the following foods, or as told by your dietitian. Talk to your dietitian about specific foods you should avoid based on the type of kidney stones and your overall health. Grains Breads. Bagels. Rolls. Baked goods. Salted crackers. Cereal. Pasta. Vegetables Spinach. Rhubarb. Beets. Canned vegetables. Pickles. Olives. Meats and other protein foods Nuts. Nut butters. Large portions of meat, poultry, or fish. Salted or cured meats. Deli meats. Hot dogs. Sausages. Dairy Cheese. Beverages Regular soft drinks. Regular vegetable juice. Seasonings and other foods Seasoning blends with salt. Baudilio hussein (more content not included)... Normal [facility] Urology Office/Clinic Noteon 12-18-2022 Urology Office/Clinic Note Chief Complaint f/u with PSA HPI Staff Pt is here for 1 year u/p with PSA. Previous dx of hx of prostate cancer (Radical prostatectomy 1998), mixed incontinence and kidney stone. No current PSA drawn. Most recent was done on 01/31/22 @ 0.35 and previous done 07/30/21 was 0.38. Pt has an indwelling catheter. Pt states that he passed a stone into his dalton bag about a year ago but has had no issues since. Incomplete bladder emptying: pt has an indwelling catheter Hematuria: no Leaking: no Abdominal pain: no Flank pain: no History of Present Illness Tests reviewed: reviewed UA, PSA. I have reviewed the previous health record information and history for this patient from Dr. Conteh. I have reviewed and verified the staff HPI to be accurate for this encounter. There have been no associated fever, chills, flank pain, or blood in the urine. Denies any urinary infections since last encounter. Review of Systems PHQ Score Initial Depression Screen Score: 0 ROS - Provider Constitutional: denies weight loss, denies hot flashes. Eyes: denies eye problems. Gastrointestinal: denies nausea, denies vomiting. Cardiovascular: denies chest pain or angina. Integumentary: no dryness Musculoskeletal: denies musculoskeletal symptoms. ENMT: denies otolaryngeal symptoms. Respiratory: no shortness of breath. Heme/Lymph: denies easy bleeding tendency, denies easy bruising tendency. Psychiatric: no confusion, no anxiety. Genitourinary: See HPI. Physical Exam Vitals & Measurements HR: 80(Peripheral) RR: 16 BP: 121/74 HT: 73 in HT: 185 cm WT: 81.2 kg WT: 178.64 lb BMI: 23.73 General Appearance: alert, no distress, well nourished, well developed male. Genitourinary: normal scrotum, normal testes, normal urethra, normal epididymis, normal vas deferens/spermatic cord. Flank Pain: none. Bladder: nonpalpable. Assessment/Plan 1. H/O prostate cancer (Z85.46: Personal history of malignant neoplasm of prostate) PSA: 01/24/21 - 0.23 07/30/21 - 0.38 01/31/22 - 0.35 S/p radical prostatectomy 1998. No current PSA level for this visit, will have blood drawn IO today. Follow up 6 mos with PSA or sooner if needed. Pt understands and agrees with plan. 2. Mixed incontinence (N39.46: Mixed incontinence) No sample provided for UA today, pt has an indwelling catheter. Using [employer] based in [place]. 3. Kidney stone (N20.0: Calculus of kidney) Pt states that he passed a stone into his dalton bag about a year ago but has had no issues since. Follow-up With When Contact Information YADY SALCIDO, Ozzy Velasquez, URL [facility] [address], [place] [address]- Additional Instructions: 6 mos with PSA Patient Education Dietary Guidelines to Help Prevent Kidney Stones I, Kelsey Shirley, personally scribed for Dr. Conteh on 12/18/2022 13:36:27. . Documentation recorded by the scribe, Kelsey Shirley, accurately reflects the services(s) I performed and decisions made by me. Authenticated by Dr. Conteh on 12/18/2022 13:42:35. Problem List/Past Medical History Ongoing Atrial fibrillation Diabetes type 2, controlled Esophageal reflux Glucosuria H/O prostate cancer History of kidney stones Hyperlipidemia Hypertension Kidney stone Kidney stones Mixed incontinence Rhinitis Stress incontinence, male Ulcer of gastric fundus Urinary tract infection Historical Elevated PSA Prostate cancer Procedure/Surgical History TRUS/BX (01/19/1999), CYSTO (11/15/1998), RADICAL RETROPUBIC PROSTATECTOMY W/ BPLND (11/15/1998), right ESWL (11/12/1998), right ESWL (10/01/1998), TRUS/BX (09/23/1996), Amputation of toe, Cardiac pacemaker, Cataract surgery, left ESWL, Procedure on wrist, Release of trigger finger, repair of eardrum. Medications albuterol alprazolam 1 mg Tab aspirin 325 mg Tab, Oral, q4hr cilostazol 50 mg Tab fluticasone 0.05 mg/inh Nasal Beatrice, Nasal, Daily furosemide 20 mg Tab, 40 mg= 2 tab(s), Oral, Daily gabapentin 100 mg Cap Humalog, SubCutaneous Lantus, SubCutaneous, Daily Lokelma, Oral Lomotil, Oral, QID lovastatin, Oral magnesium aspartate, Oral, BID metformin, Oral metoprolol 25 mg ER Tab, Oral, Daily mirtazapine 45 mg oral tablet omeprazole, Oral, Daily Super Calcium 600 + D3 400, Oral, BID tramadol, Oral Vitamin D3 Welchol, Oral Yupelri, Inhalation, Daily Allergies Augmentin (Diarrhea) Pioglitazone Hydrochloride (Mild) amoxicillin (Mild) levoFLOXacin (Mild) Social History Tobacco Former smoker, quit more than 30 days ago Tobacco Use:., 08/01/2021 Former smoker, quit more than 30 days ago Tobacco Use:., 12/12/2019 Former smoker, quit more than 30 days ago Tobacco Use:., 12/11/2019 Family History Family history is unknown Immunizations Vaccine Date Status Comments SARS-CoV-2 (COVID-19) mRNA BNT-162b2 vax 11/15/2020 Recorded second dose given 12/08/2020 Lab Results Te (more content not included)... Normal [facility] Comment on above: Result Comment: Elec tronically Signed By: Ozzy CONTEH MD\.br\Date and Time Signed: 12/18/22 13:42 EST\.br\Electronically Co-Signed By: Kelsey Shirley\.br\Date and Time Co-Signed: 12/18/22 13:41 EST CULTURE SPUTUMon 12-05-2022 CULTURE SPUTUM Isolate 1 Lida albicans Light growth of Normal [facility] l Comment on above: Performed By: #### B PATIENT TRANSPORTER, CMP #### [facility] [address] [address] [address] Norbert Polk SPUTUM GRAM STAINon 12-05-19 COMMENTS Normal [facility] Comment on above: Performed By: #### B PATIENT TRANSPORTER, CMP #### [facility] [address] [address] [address] Nobrert Polk DIPHTHEROIDS Normal [facility] Comment on above: Performed By: #### B PATIENT TRANSPORTER, CMP #### [facility] [address] [address] [address] Norbert Polk EPITHELIALS >25 Normal [facility] Comment on above: Performed By: #### B PATIENT TRANSPORTER, CMP #### [facility] [address] [address] [address] Norbert Polk FUNGAL ELEMENTS Normal [facility] Comment on above: Performed By: #### B PATIENT TRANSPORTER, CMP #### [facility] [address] [address] [address] Norbert Polk GRAM NEG BACILLI Normal [facility] Comment on above: Performed By: #### B PATIENT TRANSPORTER, CMP #### [facility] [address] [address] [address] Norbert Polk GRAM NEG DIPPLOCOCCI Normal [facility] Comment on above: Performed By: #### B PATIENT TRANSPORTER, CMP #### [facility] [address] [address] [address] Norbert Polk GRAM POS BACILLI FEW Normal [facility] Comment on above: Performed By: #### B PATIENT TRANSPORTER, CMP #### [facility] [address] [address] [address] Norbert SHAW POSITIVE COCCI FEW Normal [facility] Comment on above: Performed By: #### B PATIENT TRANSPORTER, CMP #### [facility] [address] [address] [address] Norbert Polk WBC (Bld) [#/Vol] 10*3/uL Normal [facility] Comment on above: Performed By: #### B PATIENT TRANSPORTER, CMP #### [facility] [address] [address] [address] Norbert Polk CULTURE URINEon 12-03-2022 CULTURE URINE Isolate 1 Klebsiella oxytoca >100,000 cfu/mL of Isolate 2 Pseudomonas aeruginosa >100,000 cfu/mL of Isolate 3 Enterococcus faecalis >100,000 cfu/mL of ORGANISM 2 Pseudomonas aeruginosa ANTIBIOTIC M.I.C RX STATUS Piperacillin/Tazobactam <=4 S F Ceftazidime <=1 S F Imipenem 0.5 S F Amikacin <=2 S F Gentamicin <=1 S F Tobramycin 2 S F Ciprofloxacin <=0.25 S F Levofloxacin 0.5 S F ORGANISM 1 Klebsiella oxytoca ANTIBIOTIC M.I.C RX STATUS Ampicillin >=32 R F Ampicillin/Sulbactam 8 S F Piperacillin/Tazobactam <=4 S F Cefazolin <=4 S F Ceftazidime <=1 S F Ceftriaxone <=1 S F Ertapenem <=0.5 S F Imipenem <=0.25 S F Amikacin <=2 S F Gentamicin <=1 S F Tobramycin <=1 S F Ciprofloxacin <=0.25 S F Levofloxacin <=0.12 S F Nitrofurantoin <=16 S F Trimethoprim/Sulfamethoxazole <=20 S F ORGANISM 3 Enterococcus faecalis ANTIBIOTIC M.I.C RX STATUS Beta-Lactamase Neg NEG F Benzylpenicillin 1 S F Ampicillin <=2 S F Gentamicin High Level (synergy) SYN-S S F Streptomycin High Level (synergy) SYN-S S F Ciprofloxacin <=0.5 S F Levofloxacin 1 S F Quinupristin/Dalfopristin 2 R F Linezolid 2 S F Vancomycin 1 S F Tetracycline >=16 R F Nitrofurantoin <=16 S F Normal [facility] Comment on above: Performed By: #### B PATIENT TRANSPORTER, CMP #### [facility] [address] [place] [address] Dr. Norbert Polk BNPon 11-30-2022 Natriuretic peptide B (Bld) [Mass/Vol] 1921.0 pg/mL Critically high <=1,800.0 [facility] Comment on above: Performed By: #### B PATIENT TRANSPORTER, CMP #### [facility] [address] [place] [address] Dr. Norbert Polk CBC AUTO DIFFon 11-30-2022 BASO # 0.1 103/ul Normal 0.0-0.1 [facility] Comment on above: Performed By: #### C MINISTERIO HILL, BNP #### [facility] [address] [place] [address] Dr. Norbert Polk Basophils/100 WBC (Bld) 0.5 % Normal 0.2-2.0 [facility] Comment on above: Performed By: #### C MINISTERIO HILL, BNP #### [facility] [address] [place] [address] Dr. Norbert Polk EO # 0.9 103/ul Critically high 0.0-0.7 [facility] Comment on above: Performed By: #### C MINISTERIO HILL, BNP #### [facility] [address] [place] [address] Dr. Norbert Polk Eosinophils/100 WBC (Bld) 8.9 % Critically high 0.9-7 .0 [facility] Comment on above: Performed By: #### C MP, CMADM, BNP #### [facility] [address] [place] [address] Dr. Norbert Polk Erythrocyte distribution wid th (RBC) [Ratio] 14.6 % Normal 11.0-15.0 [facility] Comment on above: Performed By: #### C MP, CMADM, BNP #### [facility] [address] [place] [address] Dr. Norbert Polk Hematocrit (Bld) [Volume fraction] 29.8 % Critically low 42.0-54.0 [facility] Comment on above: Performed By: #### C MP, CMADM, BNP #### [facility] [address] [place] [address] Dr. Norbert Polk Hemoglobin (Bld) [Mass/Vol] 9.5 g/dL Critically low 14.0 -18.0 [facility] Comment on above: Performed By: #### C MP, CMADM, BNP #### [facility] [address] [place] [address] Dr. Norbert Polk IG # 0.04 10e3/ul Critically high 0.00-0.03 [facility] Comment on above: Performed By: #### C MP, CMADM, BNP #### [facility] [address] [place] [address] Dr. Norbert Polk IG % 0.4 % Normal 0.0-0.5 [facility] Comment on above: Performed By: #### C MP, CMADM, BNP #### [facility] [address] [place] [address] Dr. Norbert Polk LYMPH # 3.1 103/ul Normal 1.2-3.8 [facility] Comment on above: Performed By: #### C MP, CMADM, BNP #### [facility] [address] [place] [address] Dr. Norbert Polk Lymphocytes/100 WBC (Bld) 30.9 % Normal 20.5-60.0 [facility] Comment on above: Performed By: #### C MP, CMADM, BNP #### [facility] [address] [place] [address] Dr. Norbert Polk MANUAL DIFF REQ NO Normal [facility] Comment on above: Performed By: #### C MP, CMADM, BNP #### [facility] [address] [place] [address] Dr. Norbert Polk MCH (RBC) [Entitic mass] 30.8 pg Normal 25.9-34.0 [facility] Comment on above: Performed By: #### C MP, CMADM, BNP #### [facility] [address] [place] [address] Dr. Norbert Polk MCHC (RBC) [Mass/Vol] 31.9 g/dL Normal 29.9-35.2 [facility] Comment on above: Performed By: #### C MP, CMADM, BNP #### [facility] [address] [place] [address] Dr. Norbert Polk MCV (RBC) [Entitic vol] 96.8 fL Critically high 80.0-94 .0 [facility] Comment on above: Performed By: #### C MP, CMADM, BNP #### [facility] [address] [place] [address] Dr. Norbert Polk MONO # 0.7 103/ul Normal 0.3-0.8 [facility] Comment on above: Performed By: #### C MP, CMADM, BNP #### [facility] [address] [place] [address] Dr. Norbert Polk Monocytes/100 WBC (Bld) 7.1 % Normal 1.7-12.0 [facility] Comment on above: Performed By: #### C MP, CMADM, BNP #### [facility] [address] [place] [address] Dr. Norbert Polk NEUT # 5.3 103/ul Normal 1.4-6.5 [facility] Comment on above: Performed By: #### C MP, CMADM, BNP #### [facility] [address] [place] [address] Dr. Norbert Polk Neutrophils/100 WBC (Bld) 52.2 % Normal 43.0-75.0 [facility] Comment on above: Performed By: #### C MP, CMADM, BNP #### [facility] [address] [address] [address] Norbert Polk Platelet mean volume (Bld) [ Entitic vol] 10.0 fL Normal 9.5-13.5 [facility] Comment on above: Performed By: #### C MP, CMADM, BNP #### [facility] [address] [address] [address] Norbert Polk PLT 195 103/ul Normal 150-450 [facility] Comment on above: Performed By: #### C MP, CMADM, BNP #### [facility] [address] [address] [address] Norbert Polk RBC 3.08 106/ul Critically low 4.70-6.10 [facility] Comment on above: Performed By: #### C MP, CMADM, BNP #### [facility] [address] [address] [address] Norbert Polk WBC 10.1 103/ul Normal 4.0-11.0 [facility] Comment on above: Performed By: #### C MP, CMADM, BNP #### [facility] [address] [place] [address] Dr. Norbert Polk ECHOCARDIO M/2D COMPLETEon 0 11-30-2022 ECHOCARDIO M/2D COMPLETE Patient: JOSE EVANS Exam Date: 11/30/2022 : 1940 Gender:M Ordering : DR FARZAD DODSON . Admission #: [id number] Family : DR DES MCALLISTER M.D. Order #: [id number] CLICK HERE TO VIEW EXAM ECHOCARDIOGRAM REPORT PROCEDURE: CARDIO PULMONARY ECHOCARDIO M/2D COMP INDICATIONS: Elevated BNP and CKMB, sepsis, pacemaker, hypertension, diabetes COMPARISON: None. DESCRIPTION: COMPLETE ECHOCARDIOGRAM Real-time transthoracic echocardiography with 2D, M-mode, spectral and color flow Doppler performed. QUALITY: Technically difficult due to patients condition. 71 180# BP 127/62 LEFT VENTRICLE: Normal chamber size. Thickened septal wall. Hyperdynamic systolic function. LV EF: Normal left ventricular ejection fraction, (>55%). DIASTOLIC: ATRIAL SEPTUM: LEFT ATRIUM: Normal chamber size. RIGHT ATRIUM: Normal chamber size. RIGHT VENTRICLE: Normal chamber size. Normal systolic function. TRICUSPID VALVE: Normal mobility and thickness. No stenosis with mild regurgitation. No evidence of pulmonary hypertension. RVSP 33 mmHg MITRAL VALVE: Normal mobility and thickness. No evidence of mitral valve stenosis. There is no mitral annular calcification. No mitral regurgitation. AORTIC VALVE: Normal trileaflet appearance. No visible sclerosis. Normal leaflet mobility. No evidence of aortic valve stenosis. No aortic regurgitation. AORTIC ROOT: Normal diameter and appearance. PULMONIC VALVE: Normal thickness and mobility. No stenosis. No regurgitation. PERICARDIUM: No evidence of pericardial effusion. IVC: Not well visualized. PLEURA: CONCLUSION: 1. Hyperdynamic ventricular systolic function. LVEF is 70 to 75%. 2. No significant valvular dysfunction. 3. Normal right-sided pressures. 4. No pericardial effusion. Adult Echocardiography Procedure Report Left Ventricle LVEDD (3.7 - 5.6 cm): 4.89 cm LVESD (2.2 - 4.0 cm): 3.25 cm LVIVS thickness (0.6 - 1.2 cm): 1.26 cm LVPW thickness (0.5 - 1.0 cm): 0.86 cm e': 0.09 m/s E - e': 5.85 LVOT Max Gradient: 2.29 mm[Hg] Peak Velocity (LVOT): 0.76 m/s LVOT Diameter 2.54 cm Left Ventricular Ejection Fraction: 70-75 % Left Atrium Left Atrium Systolic Dimension: 3.05 cm Mitral Valve MV E to A Ratio: 0.92, 1.03 Mitral Valve A-Wave Peak Velocity: 0.61 m/s, 0.48 m/s Mitral Valve E-Wave Peak Velocity: 0.56 m/s, 0.50 m/s Right Ventricle Aorta AO Root Diam: 3.86 cm Aortic Valve AoV Area (Peak Anoop): 3.39 cm2, 3.39 cm2 Peak Velocity(Antegrade Flow): 1.13 m/s Peak Gradient(Antegrade Flow): 5.10 mm[Hg] Tricuspid Valve Peak Velocity (Regurgitant Flow): 2.72 m/s, 2.78 m/s, 2.74 m/s Peak Velocity: 0.47 m/s Pulmonic Valve Peak Velocity: 1.48 m/s, 1.42 m/s Peak Gradient: 8.71 mm[Hg], 8.05 mm[Hg] Right Atrium Dictated by: Elyse Denson M.D. on 11/30/2022 at 19:29 Approved by: Elyse Denson M.D. on 11/30/2022 at 19:32 Normal [facility] INFLUENZA A AND B [facility] 11-30 INFLUANEGH SEE BELOW Normal [facility] Comment on above: Result Comment: Nega tive for Flu A protein angiten. Infection due to Flu A cannot be ruled out. Flu A angiten in the sample may be below the detection limit of the test. Performed By: #### C JANELL HILLDM, BNP #### [facility] [address] [place] [address] Dr. Norbert Polk [facility] SEE BELOW Normal [facility] Comment on above: Result Comment: Nega tive for Flu B protein antigen. Infection due to Flu B cannot be ruled out. Flu B antigen in the sample may be below the detection limit of the test. Performed By: #### C MP, CMADM, BNP #### [facility] [address] [place] [address] Dr. Norbert Polk INFLUENZA A AG Negative Normal NEGATIVE SEE COMMENT [facility] Comment on above: Performed By: #### C LIZ CMADM, BNP #### [facility] [address] [place] [address] Dr. Norbert Polk INFLUENZA B AG Negative Normal NEGATIVE SEE COMMENT [facility] Comment on above: Performed By: #### C MP, CMADM, BNP #### [facility] [address] [place] [address] Dr. Norbert Polk POINT OF CARE GLUCOSEon Glucose [Mass/Vol] 325 mg/dL Critically high [address] [place] [address] Comment on above: Performed By: #### P OCGLUC #### [facility] [address] [place] [address] Dr. Norbert Polk Glucose [Mass/Vol] 236 mg/dL Critically high -106 [facility] Comment on above: Performed By: #### P OCGLUC #### [facility] [address] [address] [address] Norbert Polk PROF 14(COMP METB)on 023 Albumin [Mass/Vol] 2.9 g/dL Critically low 3.4-5.0 [facility] Comment on above: Performed By: #### B PATIENT TRANSPORTER, CMP #### [facility] [address] [address] [address] Norbert Polk Albumin/Globulin [Mass ratio] 0.9 {ratio} Normal [facility] Comment on above: Performed By: #### B PATIENT TRANSPORTER, CMP #### [facility] [address] [place] [address] Dr. Norbert Polk ALP [Catalytic activity/Vol] 51 U/L Normal 46-116 [facility] Comment on above: Performed By: #### B PATIENT TRANSPORTER, CMP #### [facility] [address] [place] [address] Dr. Norbert Polk ALT [Catalytic activity/Vol] 14 U/L Critically low 16- 63 [facility] Comment on above: Performed By: #### B PATIENT TRANSPORTER, CMP #### [facility] [address] [place] [address] Dr. Norbert Polk Anion gap [Moles/Vol] 12.7 mmol/L Normal [facility] Comment on above: Performed By: #### B PATIENT TRANSPORTER, CMP #### [facility] [address] [address] [address] Norbert Polk AST [Catalytic activity/Vol] 14 U/L Critically low 15- 37 [facility] Comment on above: Performed By: #### B PATIENT TRANSPORTER, CMP #### [facility] [address] [place] [address] Dr. Norbert Polk Bilirubin [Mass/Vol] 0.1 mg/dL Critically low 0.2-1.0 [facility] Comment on above: Performed By: #### B PATIENT TRANSPORTER, CMP #### [facility] [address] [place] [address] Dr. Norbert Polk Calcium [Mass/Vol] 9.3 mg/dL Normal 8.5-10.1 [facility] Comment on above: Performed By: #### B PATIENT TRANSPORTER, CMP #### [facility] [address] [place] [address] Dr. Norbert Polk Chloride [Moles/Vol] 106 mmol/L Normal 98-107 [facility] Comment on above: Performed By: #### B PATIENT TRANSPORTER, CMP #### [facility] [address] [place] [address] Dr. Norbert Polk CO2 [Moles/Vol] 26.2 mmol/L Normal 21.0-32.0 [facility] Comment on above: Performed By: #### B PATIENT TRANSPORTER, CMP #### [facility] [address] [place] [address] Dr. Norbert Polk Creatinine [Mass/Vol] 2.16 mg/dL Critically high 0.70-1.30 [facility] Comment on above: Performed By: #### B PATIENT TRANSPORTER, CMP #### [facility] [address] [place] [address] Dr. Norbert Polk EGFR-AF INDONESIAN 35 mL/min/1.73m2 Critically low >=60 [facility] Comment on above: Performed By: #### B PATIENT TRANSPORTER, CMP #### [facility] [address] [place] [address] Dr. Norbert Polk EGFR-NON AF INDONESIAN 29 mL/min/1.73m2 Critically low >=60 [facility] Comment on above: Performed By: #### B PATIENT TRANSPORTER, CMP #### [facility] [address] [place] [address] Dr. Norbert Polk Globulin (S) [Mass/Vol] 3.4 g/dL Normal [facility] Comment on above: Performed By: #### B PATIENT TRANSPORTER, CMP #### [facility] [address] [place] [address] Dr. Norbert Polk Glucose [Mass/Vol] 185 mg/dL Critically high 74-106 [facility] Comment on above: Performed By: #### B PATIENT TRANSPORTER, CMP #### [facility] [address] [place] [address] Dr. Norbert Polk Potassium [Moles/Vol] 4.9 mmol/L Normal 3.5-5.1 [facility] Comment on above: Performed By: #### B PATIENT TRANSPORTER, CMP #### [facility] [address] [place] [address] Dr. Norbert Polk Protein [Mass/Vol] 6.3 g/dL Critically low 6.4-8.2 [facility] Comment on above: Performed By: #### B PATIENT TRANSPORTER, CMP #### [facility] [address] [place] [address] Dr. Norbert Polk Sodium [Moles/Vol] 140 mmol/L Normal 136-145 [facility] Comment on above: Performed By: #### B PATIENT TRANSPORTER, CMP #### [facility] [address] [place] [address] Dr. Norbert Polk Urea nitrogen [Mass/Vol] 53.0 mg/dL Critically high 7.0-18 .0 [facility] Comment on above: Performed By: #### B PATIENT TRANSPORTER, CMP #### [facility] [address] [place] [address] Dr. Norbert Polk Urea nitrogen/Creatinine [Mass ratio] 24.5 mg/mg Normal [facility] Comment on above: Performed By: #### B PATIENT TRANSPORTER, CMP #### [facility] [address] [place] [address] Dr. Norbert Polk BNPon 11-29-2022 Natriuretic peptide B (Bld) [Mass/Vol] 2119.0 pg/mL Critically high <=1,800.0 [facility] Comment on above: Performed By: #### C MP, CMADM, BNP #### [facility] [address] [place] [address] Dr. Norbert Polk CARDIAC JENNA 3-6on 3 CK [Catalytic activity/Vol] 54 U/L Normal 39-308 [facility] Comment on above: Performed By: #### C MP, CMADM, BNP #### [facility] [address] [place] [address] Dr. Norbert Polk CK.MB [Mass/Vol] 3.42 ng/mL Normal <=3.60 [facility] Comment on above: Performed By: #### C MP, CMADM, BNP #### [facility] [address] [address] [address] Norbetr Polk HSTROP 11.0 pg/mL Normal 4.0-76.1 [facility] Comment on above: Result Comment: CUT- OFF POINTS HAVE BEEN ESTABLISHED BASED ON THE FOURTH UNIVERSAL DEFINITIONS OF MYOCARDIAL INFARCTION. THE UPPER REFERENCE LIMIT (URL) OF TROPONIN, DEFINED THE 99TH PERCENTILE OF cTnI DISTRIBUTION IN A REFERENCE POPULATION, HAS BEEN CONFIRMED THE DECISION THRESHOLD FOR [place] DIAGNOSIS. Performed By: #### C MP, CMADM, BNP #### [facility] [address] [address] [address] Norbert Polk CK [Catalytic activity/Vol] 59 U/L Normal 39-308 [facility] Comment on above: Performed By: #### C MREP #### [facility] [address] [address] [address] Norbert Plok CK.MB [Mass/Vol] 4.64 ng/mL Critically high <=3.60 [facility] Comment on above: Performed By: #### C MREP #### [facility] [address] [place] [address] Dr. Norbert Polk HSTROP 11.5 pg/mL Normal 4.0-76.1 [facility] Comment on above: Result Comment: CUT- OFF POINTS HAVE BEEN ESTABLISHED BASED ON THE FOURTH UNIVERSAL DEFINITIONS OF MYOCARDIAL INFARCTION. THE UPPER REFERENCE LIMIT (URL) OF TROPONIN, DEFINED THE 99TH PERCENTILE OF cTnI DISTRIBUTION IN A REFERENCE POPULATION, HAS BEEN CONFIRMED THE DECISION THRESHOLD FOR [place] DIAGNOSIS. Performed By: #### C MREP #### [facility] [address] [address] [address] Norbert Polk CBC AUTO DIFFon 11-29-2022 BASO # 0.1 103/ul Normal 0.0-0.1 [facility] Comment on above: Performed By: #### B PATIENT TRANSPORTER, CMP #### [facility] [address] [address] [address] Norbert Polk Basophils/100 WBC (Bld) 0.8 % Normal 0.2-2.0 [facility] Comment on above: Performed By: #### B PATIENT TRANSPORTER, CMP #### [facility] [address] [place] [address] Dr. Norbert Polk EO # 1.4 103/ul Critically high 0.0-0.7 [facility] Comment on above: Performed By: #### B PATIENT TRANSPORTER, CMP #### [facility] [address] [place] [address] Dr. Norbert Polk Eosinophils/100 WBC (Bld) 13.6 % Critically high 0.9-7 .0 [facility] Comment on above: Performed By: #### B PATIENT TRANSPORTER, CMP #### [facility] [address] [place] [address] Dr. Norbert Polk Erythrocyte distribution wid th (RBC) [Ratio] 14.6 % Normal 11.0-15.0 [facility] Comment on above: Performed By: #### B PATIENT TRANSPORTER, CMP #### [facility] [address] [place] [address] Dr. Norbert Polk Hematocrit (Bld) [Volume fraction] 34.3 % Critically low 42.0-54.0 [facility] Comment on above: Performed By: #### B PATIENT TRANSPORTER, CMP #### [facility] [address] [place] [address] Dr. Norbert Polk Hemoglobin (Bld) [Mass/Vol] 10.9 g/dL Critically low 14.0 -18.0 [facility] Comment on above: Performed By: #### B PATIENT TRANSPORTER, CMP #### [facility] [address] [place] [address] Dr. Norbert Polk IG # 0.05 10e3/ul Critically high 0.00-0.03 [facility] Comment on above: Performed By: #### B PATIENT TRANSPORTER, CMP #### [facility] [address] [place] [address] Dr. Norbert Polk IG % 0.5 % Normal 0.0-0.5 [facility] Comment on above: Performed By: #### B PATIENT TRANSPORTER, CMP #### [facility] [address] [address] [address] Norbert Polk LYMPH # 3.1 103/ul Normal 1.2-3.8 [facility] Comment on above: Performed By: #### B PATIENT TRANSPORTER, CMP #### [facility] [address] [address] [address] Norbert Polk Lymphocytes/100 WBC (Bld) 29.9 % Normal 20.5-60.0 [facility] Comment on above: Performed By: #### B PATIENT TRANSPORTER, CMP #### [facility] [address] [address] [address] Norbert Polk MANUAL DIFF REQ NO Normal [facility] Comment on above: Performed By: #### B PATIENT TRANSPORTER, CMP #### [facility] [address] [place] [address] Dr. Norbert Polk MCH (RBC) [Entitic mass] 31.1 pg Normal 25.9-34.0 [facility] Comment on above: Performed By: #### B PATIENT TRANSPORTER, CMP #### [facility] [address] [place] [address] Dr. Norbert Polk MCHC (RBC) [Mass/Vol] 31.8 g/dL Normal 29.9-35.2 [facility] Comment on above: Performed By: #### B PATIENT TRANSPORTER, CMP #### [facility] [address] [place] [address] Dr. Norbert Polk MCV (RBC) [Entitic vol] 97.7 fL Critically high 80.0-94 .0 [facility] Comment on above: Performed By: #### B PATIENT TRANSPORTER, CMP #### [facility] [address] [place] [address] Dr. Norbert Polk MONO # 0.7 103/ul Normal 0.3-0.8 [facility] Comment on above: Performed By: #### B PATIENT TRANSPORTER, CMP #### [facility] [address] [place] [address] Dr. Norbert Polk Monocytes/100 WBC (Bld) 6.3 % Normal 1.7-12.0 [facility] Comment on above: Performed By: #### B PATIENT TRANSPORTER, CMP #### [facility] [address] [place] [address] Dr. Norbert Polk NEUT # 5.0 103/ul Normal 1.4-6.5 [facility] Comment on above: Performed By: #### B PATIENT TRANSPORTER, CMP #### [facility] [address] [place] [address] Dr. Norbert Polk Neutrophils/100 WBC (Bld) 48.9 % Normal 43.0-75.0 [facility] Comment on above: Performed By: #### B PATIENT TRANSPORTER, CMP #### [facility] [address] [place] [address] Dr. Norbert Polk Platelet mean volume (Bld) [ Entitic vol] 10.1 fL Normal 9.5-13.5 [facility] Comment on above: Performed By: #### B PATIENT TRANSPORTER, CMP #### [facility] [address] [place] [address] Dr. Norbert Polk PLT 218 103/ul Normal 150-450 [facility] Comment on above: Performed By: #### B PATIENT TRANSPORTER, CMP #### [facility] [address] [place] [address] Dr. Norbert Polk RBC 3.51 106/ul Critically low 4.70-6.10 [facility] Comment on above: Performed By: #### B PATIENT TRANSPORTER, CMP #### [facility] [address] [place] [address] Dr. Norbert Polk WBC 10.3 103/ul Normal 4.0-11.0 [facility] Comment on above: Performed By: #### B PATIENT TRANSPORTER, CMP #### [facility] [address] [place] [address] Dr. Norbert Polk CULTURE BLOODon 11-29-2022 Microscopic examination of blood, culture Culture Observations: NO GROWTH AT 5 DAYS. Normal The [facility] Comment on above: Performed By: #### B LDCX1 #### [facility] [address] [place] [address] Dr. Norbert Polk Microscopic examination of blood, culture Culture Observations: NO GROWTH AT 5 DAYS. Normal [facility] Comment on above: Performed By: #### B LDCX2 #### [facility] [address] [place] [address] Dr. Norbert Polk Covid-19 PCR ([facility])on SARS-CoV-2 (COVID-19) RNA KAYLIN+probe Ql (Unsp spec) Not detected Normal NOT DETECTED [facility] Comment on above: Result Comment: When diagnostic testing is negative, the possibility of a false negative should be considered in the context of a patient's recent exposures and the presence of clinical signs and symptoms consistent with SARS-CoV-2. This test is not yet approved or cleared by the [place] FDA. When there are no FDA-approved or cleared tests available, and other criteria are met, FDA can make tests available under an emergency access mechanism called an Emergency Use Authorization (EUA). The EUA for this test is supported by the [employer] of Health and Human Service's declaration that circumstances exist to justify the emergency use of in vitro diagnostics for the detection and/or diagnosis of the virus that causes COVID-19. This EUA will remain in effect for the duration of the COVID-19 declaration justifying emergency of IVDs, unless it is terminated or revoked by the FDA (after which the test may no longer be used). Performed By: #### C MP, CMADM, BNP #### [facility] [address] [place] [address] Dr. Norbert Polk ER URINE PROFILEon 3 Bilirubin Ql (U) Negative Normal NEGATIVE [facility] Comment on above: Performed By: #### B PATIENT TRANSPORTER, CMP #### [facility] [address] [place] [address] Dr. Norbert Polk Clarity (U) CLEAR Normal CLEAR [facility] Comment on above: Performed By: #### B PATIENT TRANSPORTER, CMP #### [facility] [address] [place] [address] Dr. Norbert Polk Color (U) LT. YELLOW Normal YELLOW [facility] Comment on above: Performed By: #### B PATIENT TRANSPORTER, CMP #### [facility] [address] [place] [address] Dr. Norbert ROMAN A micrscopic examina tion will be performed if indicated. Normal [facility] Comment on above: Performed By: #### B PATIENT TRANSPORTER, CMP #### [facility] [address] [address] [address] Norbert Polk Glucose Ql (U) Negative Normal NEGATIVE [facility] Comment on above: Performed By: #### B PATIENT TRANSPORTER, CMP #### [facility] [address] [address] [address] Norbert Polk Hemoglobin Ql (U) Negative Normal NEGATIVE [facility] Comment on above: Performed By: #### B PATIENT TRANSPORTER, CMP #### [facility] [address] [address] [address] Norbert Polk Ketones Ql (U) Negative Normal NEGATIVE [facility] Comment on above: Performed By: #### B PATIENT TRANSPORTER, CMP #### [facility] [address] [place] [address] Dr. Norbert Polk LEUKOCYTES SMALL Abnormal NEGATIVE [facility] Comment on above: Performed By: #### B PATIENT TRANSPORTER, CMP #### [facility] [address] [place] [address] Dr. Norbert Polk Nitrite Ql (U) Negative Normal NEGATIVE [facility] Comment on above: Performed By: #### B PATIENT TRANSPORTER, CMP #### [facility] [address] [place] [address] Dr. Norbert Polk pH (U) 7.0 [pH] Normal 5-9 [facility] Comment on above: Performed By: #### B PATIENT TRANSPORTER, CMP #### [facility] [address] [place] [address] Dr. Norbert Polk SPEC GRAVITY <=1.005 Abnormal 1.005-<=1.025 [facility] Comment on above: Performed By: #### B PATIENT TRANSPORTER, CMP #### [facility] [address] [place] [address] Dr. Norbert Polk UA PROTEIN Negative Normal NEGATIVE/ TRACE [facility] Comment on above: Performed By: #### B PATIENT TRANSPORTER, CMP #### [facility] [address] [place] [address] Dr. Norbert Polk UR MICRO IND INDICATED Normal [facility] Comment on above: Performed By: #### B PATIENT TRANSPORTER, CMP #### [facility] [address] [place] [address] Dr. Norbert Polk Urobilinogen Qn (U) 0.2 {Karan'U}/dL Normal 0.2 - 1. 0 [facility] Comment on above: Performed By: #### B PATIENT TRANSPORTER, CMP #### [facility] [address] [place] [address] Dr. Norbert Polk LACTATE/LACTIC ACIDon 2022 Lactate [Moles/Vol] 2.5 mmol/L Critically high 0.4-1.9 [facility] Comment on above: Performed By: #### P OCGLUC #### [facility] [address] [place] [address] Dr. Norbert Polk Lactate [Moles/Vol] 2.5 mmol/L Critically high 0.4-1.9 [facility] Comment on above: Performed By: #### C MP, CMADM, BNP #### [facility] [address] [place] [address] Dr. Norbert Polk POINT OF CARE GLUCOSEon Glucose [Mass/Vol] 113 mg/dL Critically high 74-106 [facility] Comment on above: Performed By: #### C MP, CMADM, BNP #### [facility] [address] [place] [address] Dr. Norbert Polk PROF 14(COMP METB)on 023 Albumin [Mass/Vol] 3.3 g/dL Critically low 3.4-5.0 [facility] Comment on above: Performed By: #### C MP, CMADM, BNP #### [facility] [address] [place] [address] Dr. Norbert Polk Albumin/Globulin [Mass ratio] 0.9 {ratio} Normal [facility] Comment on above: Performed By: #### C MP, CMADM, BNP #### [facility] [address] [place] [address] Dr. Norbert Polk ALP [Catalytic activity/Vol] 54 U/L Normal 46-116 [facility] Comment on above: Performed By: #### C MP, CMADM, BNP #### [facility] [address] [address] [address] Norbert Polk ALT [Catalytic activity/Vol] 16 U/L Normal 16-63 [facility] Comment on above: Performed By: #### C MP, CMADM, BNP #### [facility] [address] [address] [address] Norbert Polk Anion gap [Moles/Vol] 13.7 mmol/L Normal [facility] Comment on above: Performed By: #### C MP, CMADM, BNP #### [facility] [address] [place] [address] Dr. Norbert Polk AST [Catalytic activity/Vol] 16 U/L Normal 15-37 [facility] Comment on above: Performed By: #### C MP, CMADM, BNP #### [facility] [address] [place] [address] Dr. Norbert Polk Bilirubin [Mass/Vol] 0.2 mg/dL Normal 0.2-1.0 [facility] Comment on above: Performed By: #### C MP CMADM, BNP #### [facility] [address] [place] [address] Dr. Norbert Polk Calcium [Mass/Vol] 9.8 mg/dL Normal 8.5-10.1 [facility] Comment on above: Performed By: #### C MP, CMADM, BNP #### [facility] [address] [place] [address] Dr. Norbert Polk Chloride [Moles/Vol] 105 mmol/L Normal 98-107 [facility] Comment on above: Performed By: #### C MP, CMADM, BNP #### [facility] [address] [place] [address] Dr. Norbert Polk CO2 [Moles/Vol] 27.0 mmol/L Normal 21.0-32.0 [facility] Comment on above: Performed By: #### C MP, CMADM, BNP #### [facility] [address] [place] [address] Dr. Norbert Polk Creatinine [Mass/Vol] 2.08 mg/dL Critically high 0.70-1.30 [facility] Comment on above: Performed By: #### C MP, CMADM, BNP #### [facility] [address] [place] [address] Dr. Norbert Polk EGFR-AF INDONESIAN 37 mL/min/1.73m2 Critically low >=60 [facility] Comment on above: Performed By: #### C MP, CMADM, BNP #### [facility] [address] [place] [address] Dr. Norbert Polk EGFR-NON AF INDONESIAN 31 mL/min/1.73m2 Critically low >=60 [facility] Comment on above: Performed By: #### C MP, CMADM, BNP #### [facility] [address] [place] [address] Dr. Norbert Polk Globulin (S) [Mass/Vol] 3.7 g/dL Normal [facility] Comment on above: Performed By: #### C MP, CMADM, BNP #### [facility] [address] [place] [address] Dr. Norbert Polk Glucose [Mass/Vol] 136 mg/dL Critically high 74-106 [facility] Comment on above: Performed By: #### C MP, CMADM, BNP #### [facility] [address] [place] [address] Dr. Norbert Polk Potassium [Moles/Vol] 4.7 mmol/L Normal 3.5-5.1 [facility] Comment on above: Performed By: #### C MP, CMADM, BNP #### [facility] [address] [place] [address] Dr. Norbert Polk Protein [Mass/Vol] 7.0 g/dL Normal 6.4-8.2 [facility] Comment on above: Performed By: #### C MP, CMADM, BNP #### [facility] [address] [place] [address] Dr. Norbert Polk Sodium [Moles/Vol] 141 mmol/L Normal 136-145 [facility] Comment on above: Performed By: #### C JANELL HILLDM, BNP #### [facility] [address] [place] [address] Dr. Norbert Polk Urea nitrogen [Mass/Vol] 62.0 mg/dL Critically high 7.0-18 .0 [facility] Comment on above: Performed By: #### C JANELL HILLDM, BNP #### [facility] [address] [place] [address] Dr. Norbert Polk Urea nitrogen/Creatinine [Mass ratio] 29.8 mg/mg Normal [facility] Comment on above: Performed By: #### C MINISTERIO HILL, BNP #### [facility] [address] [place] [address] Dr. Norbert Polk TROPONIN, HIGH SENSITIVITYon 11-29-2022 HSTROP 10.9 pg/mL Normal 4.0-76.1 [facility] Comment on above: Result Comment: CUT- OFF POINTS HAVE BEEN ESTABLISHED BASED ON THE FOURTH UNIVERSAL DEFINITIONS OF MYOCARDIAL INFARCTION. THE UPPER REFERENCE LIMIT (URL) OF TROPONIN, DEFINED THE 99TH PERCENTILE OF cTnI DISTRIBUTION IN A REFERENCE POPULATION, HAS BEEN CONFIRMED THE DECISION THRESHOLD FOR [place] DIAGNOSIS. Performed By: #### C MINISTERIO HILL, BNP #### [facility] [address] [place] [address] Dr. Norbert Polk URINE MICROSCOPIC ONLYon BACTERIA NONE SEEN Normal NONE SEEN [facility] Comment on above: Performed By: #### B PATIENT TRANSPORTER, CMP #### [facility] [address] [place] [address] Dr. Norbert Polk Bacteria identified Cx Nom (U) NOT INDICATED Normal [facility] Comment on above: Performed By: #### B PATIENT TRANSPORTER, CMP #### [facility] [address] [place] [address] Dr. Norbert Polk CAST NONE SEEN Normal NONE SEEN [facility] Comment on above: Performed By: #### B PATIENT TRANSPORTER, CMP #### [facility] [address] [place] [address] Dr. Norbert Polk Crystals LM Nom (Urine sed) NONE SEEN Normal NONE SEE N [facility] Comment on above: Performed By: #### B PATIENT TRANSPORTER, CMP #### [facility] [address] [place] [address] Dr. Norbert Polk Epithelial cells LM Ql (Urin e sed) NONE SEEN Normal NONE SEEN /RARE [facility]ital Comment on above: Performed By: #### B PATIENT TRANSPORTER, CMP #### [facility] [address] [place] [address] Dr. Norbert Polk MUCOUS NONE SEEN Normal NONE SEEN [facility] Comment on above: Performed By: #### B PATIENT TRANSPORTER, CMP #### [facility] [address] [place] [address] Dr. Norbert Polk RBC 0-2 Normal 0-2 [facility] Comment on above: Performed By: #### B PATIENT TRANSPORTER, CMP #### [facility] [address] [place] [address] Dr. Norbert Polk WBC 0-2 Abnormal NONE SEEN [facility] Comment on above: Performed By: #### B PATIENT TRANSPORTER, CMP #### [facility] [address] [place] [address] Dr. Norbetr Polk XR CHEST 1 Von 11-29-2022 XR CHEST 1 V EXAM: XR CHEST 1 V a t 1612 hours HISTORY: Low blood pressure COMPARISON: 12/02/2021 TECHNIQUE: AP upright portable chest x-ray FINDINGS: The study is limited by shallow inspiration. The heart is not grossly enlarged and the vasculature is not distended. No acute infiltrate, effusion or pneumothorax is identified. There has been improved aeration at the lung bases since the prior study. 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 The osseous structures are grossly intact. IMPRESSION: No apparent acute infiltrate or evidence of cardiac decompensation. There is been interval clearing of the lung bases since the prior study. Electronically authenticated by: INDIGO MONTANO Date: 2022-11-29 17:08 Normal [facility] BNP[facility] 10-31-2022 Natriuretic peptide B (Bld) [Mass/Vol] 729.0 pg/mL Normal <=1,800.0 [facility] Comment on above: Performed By: #### P OCGLUC #### [facility] [address] [place] [address] Dr. Norbert Polk CBC AUTO DIFFon 10-31-2022 BASO # 0.1 103/ul Normal 0.0-0.1 [facility] Comment on above: Performed By: #### P OCGLUC #### [facility] [address] [place] [address] Dr. Norbert Polk Basophils/100 WBC (Bld) 0.8 % Normal 0.2-2.0 [facility] Comment on above: Performed By: #### P OCGLUC #### [facility] [address] [place] [address] Dr. Norbert Polk EO # 0.7 103/ul Normal 0.0-0.7 [facility] Comment on above: Performed By: #### P OCGLUC #### [facility] [address] [place] [address] Dr. Norbert Polk Eosinophils/100 WBC (Bld) 8.1 % Critically high 0.9-7 .0 [facility] Comment on above: Performed By: #### P OCGLUC #### [facility] [address] [place] [address] Dr. Norbert Polk Erythrocyte distribution wid th (RBC) [Ratio] 14.7 % Normal 11.0-15.0 [facility] Comment on above: Performed By: #### P OCGLUC #### [facility] [address] [place] [address] Dr. Norbert Polk Hematocrit (Bld) [Volume fraction] 34.8 % Critically low 42.0-54.0 [facility] Comment on above: Performed By: #### P OCGLUC #### [facility] [address] [place] [address] Dr. Norbert Polk Hemoglobin (Bld) [Mass/Vol] 11.1 g/dL Critically low 14.0 -18.0 [facility] Comment on above: Performed By: #### P OCGLUC #### [facility] [address] [place] [address] Dr. Norbert Polk IG # 0.03 10e3/ul Normal 0.00-0.03 [facility] Comment on above: Performed By: #### P OCGLUC #### [facility] [address] [address] [address] Norbert Polk IG % 0.3 % Normal 0.0-0.5 [facility] Comment on above: Performed By: #### P OCGLUC #### [facility] [address] [address] [address] Norbert Polk LYMPH # 3.4 103/ul Normal 1.2-3.8 [facility] Comment on above: Performed By: #### P OCGLUC #### [facility] [address] [address] [address] Norbert Polk Lymphocytes/100 WBC (Bld) 37.4 % Normal 20.5-60.0 [facility] Comment on above: Performed By: #### P OCGLUC #### [facility] [address] [address] [address] Norbert Polk MANUAL DIFF REQ NO Normal [facility] Comment on above: Performed By: #### P OCGLUC #### [facility] [address] [address] [address] Norbert Polk MCH (RBC) [Entitic mass] 30.1 pg Normal 25.9-34.0 [facility] Comment on above: Performed By: #### P OCGLUC #### [facility] [address] [address] [address] Norbert Polk MCHC (RBC) [Mass/Vol] 31.9 g/dL Normal 29.9-35.2 [facility] Comment on above: Performed By: #### P OCGLUC #### [facility] [address] [address] [address] Norbert Polk MCV (RBC) [Entitic vol] 94.3 fL Critically high 80.0-94 .0 [facility] Comment on above: Performed By: #### P OCGLUC #### [facility] [address] [address] [address] Norbert Polk MONO # 0.6 103/ul Normal 0.3-0.8 [facility] Comment on above: Performed By: #### P OCGLUC #### [facility] [address] [place] [address] Dr. Norbert Polk Monocytes/100 WBC (Bld) 6.9 % Normal 1.7-12.0 [facility] Comment on above: Performed By: #### P OCGLUC #### [facility] [address] [place] [address] Dr. Norbert Polk NEUT # 4.3 103/ul Normal 1.4-6.5 [facility] Comment on above: Performed By: #### P OCGLUC #### [facility] [address] [place] [address] Dr. Norbert Polk Neutrophils/100 WBC (Bld) 46.5 % Normal 43.0-75.0 [facility] Comment on above: Performed By: #### P OCGLUC #### [facility] [address] [place] [address] Dr. Norbert Polk Platelet mean volume (Bld) [Entitic vol] 9.5 fL Normal 9.5-13.5 [facility] Comment on above: Performed By: #### P OCGLUC #### [facility] [address] [place] [address] Dr. Norbert Polk PLT 228 103/ul Normal 150-450 [facility] ostal Comment on above: Performed By: #### P OCGLUC #### [facility] [address] [place] [address] Dr. Norbert Polk RBC 3.69 106/ul Critically low 4.70-6.10 [facility] Comment on above: Performed By: #### P OCGLUC #### [facility] [address] [place] [address] Dr. Norbert Polk WBC 9.2 103/ul Normal 4.0-11.0 [facility] Comment on above: Performed By: #### P OCGLUC #### [facility] [address] [place], [place] [id number] Dr. Norbert Polk MAGNESIUMon 10-31-2022 Magnesium [Mass/Vol] 1.6 mg/dL Critically low 1.8-2.4 [facility] Comment on above: Performed By: #### C MP, CMADM, BNP #### [facility] [address] [address] [address] Norbert Polk Office Visiton 10-31-2022 Follow-up visit [id number] Kd Ferreira 1940 M Date Provider Department Center 10/31/2022 NIA PORTILLO CARD [facility] Family History Problem Relation Age of Onset Cancer Father Alcohol abuse Father Family Status - Relation Status Age at Father Level of Service:14434 [place] OFFICE/OUTPATIENT ESTABLISHED MOD MDM 30-39 MIN Reason for Visit and Comments: Atrial Fibrillation [80] Congestive Heart Failure [127] Hypertension [465389] Normal [facility] PROF CHEM 8 (BAS METB)on Anion gap [Moles/Vol] 13.5 mmol/L Normal [facility] Comment on above: Performed By: #### C MP, CMADM, BNP #### [facility] [address] [address] [address] Norbert Polk Calcium [Mass/Vol] 10.5 mg/dL Critically high 8.5-10.1 [facility] Comment on above: Performed By: #### C MP, CMADM, BNP #### [facility] [address] [address] [address] Norbert Polk Chloride [Moles/Vol] 105 mmol/L Normal 98-107 [facility] Comment on above: Performed By: #### C MP, CMADM, BNP #### [facility] [address] [address] [address] Norbert Polk CO2 [Moles/Vol] 26.9 mmol/L Normal 21.0-32.0 [facility] Comment on above: Performed By: #### C MP, CMADM, BNP #### [facility] [address] [address] [address] Norbert Polk Creatinine [Mass/Vol] 1.93 mg/dL Critically high 0.70-1.30 [facility] Comment on above: Performed By: #### C MP, CMADM, BNP #### [facility] [address] [place] [address] Dr. Norbert Polk EGFR-AF INDONESIAN 40 mL/min/1.73m2 Critically low >=60 [facility] Comment on above: Performed By: #### C MP, CMADM, BNP #### [facility] [address] [address] [address] Norbert Polk EGFR-NON AF INDONESIAN 33 mL/min/1.73m2 Critically low >=60 [facility] Comment on above: Performed By: #### C MP, CMADM, BNP #### [facility] [address] [place] [address] Dr. Norbert Polk Glucose [Mass/Vol] 111 mg/dL Critically high 74-106 [facility] Comment on above: Performed By: #### C MP, CMADM, BNP #### [facility] [address] [place] [address] Dr. Norbert Polk Potassium [Moles/Vol] 5.4 mmol/L Critically high 3.5-5.1 [facility] Comment on above: Performed By: #### C MP CMADM, BNP #### [facility] [address] [place] [address] Dr. Norbert Polk Sodium [Moles/Vol] 140 mmol/L Normal 136-145 [facility] Comment on above: Performed By: #### C MP, CMADM, BNP #### [facility] [address] [place] [address] Dr. Norbert Polk Urea nitrogen [Mass/Vol] 65.0 mg/dL Critically high 7.0-18 .0 [facility] Comment on above: Performed By: #### C MP, CMADM, BNP #### [facility] [address] [place] [address] Dr. Norbert Polk Urea nitrogen/Creatinine [Mass ratio] 33.7 mg/mg Normal [facility] Comment on above: Performed By: #### C MP, CMADM, BNP #### [facility] [address] [place], [place] [address] Dr. Norbert Polk HEMOGLOBINon 05-09-2022 Hemoglobin (Bld) [Mass/Vol] 10.7 g/dL Critically low 14.0 -18.0 [facility] Comment on above: Performed By: #### C MP, CMADM, BNP #### [facility] [address] [address] [address] Norbert Polk BASIC METABOLIC PANELon 11-22 Calcium [Mass/Vol] 8.7 mg/dL Normal 8.6-10.3 [facility] Comment on above: Order Comment: No: D o not add to previous draw Nurse draw Ronak Moseley Performed By: #### 0 0071, 03862 #### [facility] [address] [place] [address], [facility] Chloride [Moles/Vol] 105 mmol/L Normal 98-107 [facility] Comment on above: Order Comment: No: D o not add to previous draw Nurse draw Ronak Moseley Performed By: #### 0 0071, 04633 #### [facility] [address] [place] [address], [place] CO2 [Moles/Vol] 24 mmol/L Normal 21-31 [facility] Comment on above: Order Comment: No: D o not add to previous draw Nurse draw Rn Lorelei Performed By: #### 0 0071, 62070 #### [facility] [address] [place] [address], [place] Creatinine [Mass/Vol] 1.22 mg/dL Normal 0.70-1.30 [facility] Comment on above: Order Comment: No: D o not add to previous draw Nurse draw Rn Lorelei Performed By: #### 0 0071, 48367 #### [facility] [address] [place] [address], [place] eGFR- non- 57 ml/min/1.73sq m Abnormal > 60 [facility] Comment on above: Order Comment: No: D o not add to previous draw Nurse draw Rn Lorelei Result Comment: Calc ulation may not be valid for patients over 70 years Performed By: #### 0 0071, 02309 #### [facility] [address] [place] [address], [place] GFR/1.73 sq M.predicted rosa maria g blacks MDRD (S/P/Bld) [Vol rate/Area] mL/min/{1.73_m2} Normal >60 [facility] Comment on above: Order Comment: No: D o not add to previous draw Nurse draw Rn Lorelei Result Comment: Calc ulation may not be valid for patients over 70 years Performed By: #### 0 0071, 77377 #### [facility] [address] [place] [address], [place] Glucose [Mass/Vol] 156 mg/dL High 70-100 [facility] Comment on above: Order Comment: No: D o not add to previous draw Nurse draw Rn Lorelei Performed By: #### 0 0071, 16273 #### [facility] [address] [place] [address], [place] Potassium [Moles/Vol] 3.9 mmol/L Normal 3.5-5.1 [facility] Comment on above: Order Comment: No: D o not add to previous draw Nurse draw Rn Lorelei Performed By: #### 0 0071, 74175 #### [facility] [address] [place] [address], [place] Sodium [Moles/Vol] 136 mmol/L Normal 136-145 [facility] Comment on above: Order Comment: No: D o not add to previous draw Nurse draw Rn Lorelei Performed By: #### 0 0071, 29346 #### [facility] [address] [place] [address], [place] Urea nitrogen [Mass/Vol] 36 mg/dL High 7-25 [facility] Comment on above: Order Comment: No: D o not add to previous draw Nurse draw Rn Lorelei Performed By: #### 0 0071, 92640 #### [facility] [address] [place] [address], [facility] CBC COMPLETE BLOOD COUNTon 0 12-05-2021 Erythrocyte distribution wid th (RBC) [Ratio] 15.7 % High 11.5-15.0 [facility] Comment on above: Order Comment: No: D o not add to previous draw Performed By: #### 0 0121, 43349, 26957 #### [facility] [address] [place] [address], [facility] Hematocrit (Bld) [Volume fraction] 28.4 % Low 39.0-50.0 [facility] Comment on above: Order Comment: No: D o not add to previous draw Performed By: #### 0 0121, 16035, 15843 #### [facility] [address] [place] [address], [facility] Hemoglobin (Bld) [Mass/Vol] 9.0 g/dL Low 13.0-17. 0 [facility] Comment on above: Order Comment: No: D o not add to previous draw Performed By: #### 0 0121, 46996, 08156 #### [facility] [address] [place] [address], [facility] MCH (RBC) [Entitic mass] 28.8 pg Normal 27.0-33.0 [facility] Comment on above: Order Comment: No: D o not add to previous draw Performed By: #### 0 0121, 20896, 80023 #### [facility] [address] [place] [address], [facility] MCHC (RBC) [Mass/Vol] 31.7 g/dL Low 32.0-35.0 [facility] Comment on above: Order Comment: No: D o not add to previous draw Performed By: #### 0 0121, 31521, 83039 #### [facility] [address] [place] [address], [facility] MCV (RBC) [Entitic vol] 91.0 fL Normal 82.0-98.0 [facility] Comment on above: Order Comment: No: D o not add to previous draw Performed By: #### 0 0121, 49859, 54210 #### [facility] [address] [place] [address], [facility] Nucleated RBC/100 WBC (Bld) [Ratio] 0 % Normal 0-0 [facility] Comment on above: Order Comment: No: D o not add to previous draw Performed By: #### 0 0121, 27719, 70279 #### [facility] [address] [facility] [place] [address], [facility] PLAT CNT 319 10*3/uL Normal 150-400 [facility] Comment on above: Order Comment: No: D o not add to previous draw Performed By: #### 0 0121, 88627, 61610 #### [facility] [address] [facility] [place] [address], [facility] RBC (Bld) [#/Vol] 3.12 10*6/uL Low 4.20-5.70 [facility] Comment on above: Order Comment: No: D o not add to previous draw Performed By: #### 0 0121, 33404, 25132 #### [facility] [address] [facility] [place] [address], [facility] WBC (Bld) [#/Vol] 9.06 10*3/uL Normal 4.00-10.60 [facility] Comment on above: Order Comment: No: D o not add to previous draw Performed By: #### 0 0121, 99693, 97933 #### [facility] [address] [place] [id number], [facility] LIVER BATTERYon 12-05-2021 Albumin [Mass/Vol] 2.7 g/dL Low 3.5-5.7 [facility] Comment on above: Performed By: #### 0 0071, 48213 #### [facility] [address] [place] [address], [facility] ALKALINE PHOSPH 107 IU/L High 34-104 [facility] Comment on above: Performed By: #### 0 0071, 40228 #### [facility] [address] [place] [address], [place] ALT [Catalytic activity/Vol] 107 U/L High 7-52 [facility] Comment on above: Performed By: #### 0 0071, 48990 #### [facility] [address] [place] [address], [facility] AST [Catalytic activity/Vol] 97 U/L High 13-39 [facility] Comment on above: Performed By: #### 0 0071, 26993 #### [facility] [address] [place] [address], [facility] Bilirubin [Mass/Vol] 0.2 mg/dL Low 0.3-1.0 [facility] Comment on above: Performed By: #### 0 0071, 78158 #### [facility] [address] [place] [address], [facility] Bilirubin.direct [Mass/Vol] 0.0 mg/dL Normal 0.0-0.2 [facility] Comment on above: Performed By: #### 0 0071, 77811 #### [facility] [address] [place] [address], [place] Protein [Mass/Vol] 6.2 g/dL Normal 6.0-8.3 [facility] Comment on above: Performed By: #### 0 0071, 23470 #### [facility] [address] [place] [address], [facility] POC GLUCOSE LABon 12-05-2021 Glucose [Mass/Vol] 433 mg/dL High 70-100 [facility] Comment on above: Performed By: #### 3 5200, 76885 #### [facility] [address] [place] [address], [place] Glucose [Mass/Vol] 191 mg/dL High 70-100 [facility] Comment on above: Performed By: #### 3 5200, 64541 #### [facility] [address] [place] [address], [place] BASIC METABOLIC PANELon 11-22 Calcium [Mass/Vol] 8.6 mg/dL Normal 8.6-10.3 [facility] Comment on above: Order Comment: No: D o not add to previous draw Performed By: #### 0 0121, 95410, 02497 #### [facility] [address] [place] [address], [place] Chloride [Moles/Vol] 104 mmol/L Normal 98-107 [facility] Comment on above: Order Comment: No: D o not add to previous draw Performed By: #### 0 0121, 32684, 22115 #### [facility] [address] [place] [address], [place] CO2 [Moles/Vol] 22 mmol/L Normal 21-31 [facility] Comment on above: Order Comment: No: D o not add to previous draw Performed By: #### 0 0121, 38951, 32487 #### [facility] [address] [place] [address], [place] Creatinine [Mass/Vol] 1.48 mg/dL High 0.70-1.30 [facility] Comment on above: Order Comment: No: D o not add to previous draw Performed By: #### 0 0121, 13721, 52814 #### [facility] [address] [place] [address], [place] eGFR- 55 ml/min/1.73sq m Abnormal >60 [facility] Comment on above: Order Comment: No: D o not add to previous draw Result Comment: Calc ulation may not be valid for patients over 70 years Performed By: #### 0 0121, 26519, 60999 #### [facility] [address] [place] [address], [facility] eGFR- non- 45 ml/min/1.73sq m Abnormal > 60 [facility] Comment on above: Order Comment: No: D o not add to previous draw Result Comment: Calc ulation may not be valid for patients over 70 years Performed By: #### 0 0121, 59642, 01160 #### [facility] [address] [place] [address], [place] Glucose [Mass/Vol] 112 mg/dL High 70-100 [facility] Comment on above: Order Comment: No: D o not add to previous draw Performed By: #### 0 0121, 02209, 08614 #### [facility] [address] [place] [address], [place] Potassium [Moles/Vol] 3.8 mmol/L Normal 3.5-5.1 [facility] Comment on above: Order Comment: No: D o not add to previous draw Performed By: #### 0 0121, 34174, 05890 #### [facility] [address] [place] [address], [place] Sodium [Moles/Vol] 135 mmol/L Low 136-145 [facility] Comment on above: Order Comment: No: D o not add to previous draw Performed By: #### 0 0121, 36010, 14487 #### [facility] [address] [place] [address], [place] Urea nitrogen [Mass/Vol] 32 mg/dL High 7-25 [facility] Comment on above: Order Comment: No: D o not add to previous draw Performed By: #### 0 0121, 77737, 27861 #### [facility] [address] CBC COMPLETE BLOOD COUNTon 0 - Erythrocyte distribution wid th (RBC) [Ratio] 15.9 % High 11.5-15.0 [facility] Comment on above: Order Comment: No: D o not add to previous draw Performed By: #### 0 0121, 48847, 23414 #### [facility] [address] [place] [address], [facility] Hematocrit (Bld) [Volume fraction] 28.5 % Low 39.0-50.0 [facility] Comment on above: Order Comment: No: D o not add to previous draw Performed By: #### 0 0121, 49276, 99764 #### [facility] [address] [place] [address], [facility] Hemoglobin (Bld) [Mass/Vol] 9.2 g/dL Low 13.0-17. 0 [facility] Comment on above: Order Comment: No: D o not add to previous draw Performed By: #### 0 0121, 55532, 94036 #### [facility] [address] [place] [address], [facility] MCH (RBC) [Entitic mass] 28.5 pg Normal 27.0-33.0 [facility] Comment on above: Order Comment: No: D o not add to previous draw Performed By: #### 0 0121, 57801, 62142 #### [facility] [address] [place] [address], [facility] MCHC (RBC) [Mass/Vol] 32.3 g/dL Normal 32.0-35.0 [facility] Comment on above: Order Comment: No: D o not add to previous draw Performed By: #### 0 0121, 62645, 58604 #### [facility] [address] [facility] [place] [address], [facility] MCV (RBC) [Entitic vol] 88.2 fL Normal 82.0-98.0 [facility] Comment on above: Order Comment: No: D o not add to previous draw Performed By: #### 0 0121, 15982, 48122 #### [facility] [address] [place] [address], [place] Nucleated RBC/100 WBC (Bld) [Ratio] 0 % Normal 0-0 [facility] Comment on above: Order Comment: No: D o not add to previous draw Performed By: #### 0 0121, 50730, 74397 #### [facility] [address] [place] [address], [place] PLAT CNT 308 10*3/uL Normal 150-400 [facility] Comment on above: Order Comment: No: D o not add to previous draw Performed By: #### 0 0121, 26765, 58040 #### [facility] [address] [place] [address], [place] RBC (Bld) [#/Vol] 3.23 10*6/uL Low 4.20-5.70 [facility] Comment on above: Order Comment: No: D o not add to previous draw Performed By: #### 0 0121, 89684, 63024 #### [facility] [address] [place] [address], [place] WBC (Bld) [#/Vol] 11.47 10*3/uL High 4.00-10.60 [facility] Comment on above: Order Comment: No: D o not add to previous draw Performed By: #### 0 0121, 76779, 41020 #### [facility] [address] [place] [address], [place] POC GLUCOSE LABon 12-04-2021 Glucose [Mass/Vol] 198 mg/dL High 70-100 [facility] Comment on above: Performed By: #### 3 5200, 43996 #### [facility] [address] [place] [address], [place] Glucose [Mass/Vol] 326 mg/dL High 70-100 [facility] Comment on above: Performed By: #### 3 5200, 67717 #### [facility] [address] [address], [facility] Glucose [Mass/Vol] 424 mg/dL High 70-100 [facility] Comment on above: Performed By: #### 3 5200, 29888 #### [facility] [address] [facility] [place] [address], [facility] Glucose [Mass/Vol] 158 mg/dL High 70-100 [facility] Comment on above: Performed By: #### 3 5200, 40073 #### [facility] [address] [facility]. [address] *SARS-CoV-2 COVID-19on 12-03 SARS-CoV-2 (COVID-19) RNA KAYLIN+probe Ql (Unsp spec) Not detected Normal Not Detected The [facility] Comment on above: Order Comment: No: D o not add to previous draw Performed By: #### 3 9910, 20660 #### [facility] [address] [facility]. [address] APTTon 12-03-2021 aPTT Coag (Bld) [Time] 35.5 s High 25.0-35.0 Th e [facility] Comment on above: Order Comment: No: D o not add to previous draw Result Comment: ALL RESULTS MUST BE INTERPRETED WITH RESPECT TO BLOOD DRAWING ARTIFACT OR DILUTION ERROR OF ANTICOAGULANT AT THE TIME OF SAMPLING. THE APTT SHOULD NOT BE USED TO MONITOR UNFRACTIONATED HEPARIN THERAPY, THIS LABORATORY NO LONGER HAS AN ESTABLISHED THERAPEUTIC RANGE BASED ON THE APTT. IT IS RECOMMENDED THAT THE [facility] - HEPARIN ASSAY (ANTI-XA ACTIVITY) BE USED FOR THIS PURPOSE. Performed By: #### 3 2440, 88610 #### [facility] [address] [facility]. [address] BASIC METABOLIC PANELon 11-22 Calcium [Mass/Vol] 8.6 mg/dL Normal 8.6-10.3 [facility] Comment on above: Order Comment: No: D o not add to previous draw Performed By: #### 0 0121, 14591, 48110 #### [facility] [address] [place] [address], [place] Chloride [Moles/Vol] 103 mmol/L Normal 98-107 [facility] Comment on above: Order Comment: No: D o not add to previous draw Performed By: #### 0 0121, 44931, 96169 #### [facility] [address] [place] [address], [place] CO2 [Moles/Vol] 22 mmol/L Normal 21-31 [facility] [place] Comment on above: Order Comment: No: D o not add to previous draw Performed By: #### 0 0121, 51310, 34233 #### [facility] [address] [place] [address], [place] Creatinine [Mass/Vol] 1.52 mg/dL High 0.70-1.30 [facility] Comment on above: Order Comment: No: D o not add to previous draw Performed By: #### 0 0121, 60105, 57995 #### [facility] [address] [place] [address], [facility] eGFR- 53 ml/min/1.73sq m Abnormal >60 [facility] Comment on above: Order Comment: No: D o not add to previous draw Result Comment: Calc ulation may not be valid for patients over 70 years Performed By: #### 0 0121, 88826, 58899 #### [facility] [address] [place] [address], [facility] eGFR- non- 44 ml/min/1.73sq m Abnormal > 60 [facility] Comment on above: Order Comment: No: D o not add to previous draw Result Comment: Calc ulation may not be valid for patients over 70 years Performed By: #### 0 0121, 36468, 79162 #### [facility] [address] [place] [address], [place] Glucose [Mass/Vol] 214 mg/dL High 70-100 [facility] Comment on above: Order Comment: No: D o not add to previous draw Performed By: #### 0 0121, 23318, 42971 #### [facility] [address] [place] [address], [place] Potassium [Moles/Vol] 4.3 mmol/L Normal 3.5-5.1 [facility] Comment on above: Order Comment: No: D o not add to previous draw Performed By: #### 0 0121, 20722, 13442 #### [facility] [address] [place] [address], [place] Sodium [Moles/Vol] 132 mmol/L Low 136-145 [facility] Comment on above: Order Comment: No: D o not add to previous draw Performed By: #### 0 0121, 85314, 61618 #### [facility] [address] [place] [address], [facility] Urea nitrogen [Mass/Vol] 35 mg/dL High 7-25 [facility] Comment on above: Order Comment: No: D o not add to previous draw Performed By: #### 0 0121, 21591, 09095 #### [facility] [address] [place] [address], [place] C REACTIVE PROTEINon 022 CRP [Mass/Vol] 156.0 mg/L High 0.0-7.0 [facility] Comment on above: Order Comment: No: D o not add to previous draw Performed By: #### 3 9390, 79322 #### [facility] [address] [place] [address], [place] CBC COMPLETE BLOOD COUNTon 0 12-03-2021 Erythrocyte distribution wid th (RBC) [Ratio] 15.7 % High 11.5-15.0 [facility] Comment on above: Order Comment: No: D o not add to previous draw Performed By: #### 3 5199, 56295 #### [facility] [address] [place] [id number], [facility] Hematocrit (Bld) [Volume fraction] 27.6 % Low 39.0-50.0 [facility] Comment on above: Order Comment: No: D o not add to previous draw Performed By: #### 3 5199, 89568 #### [facility] [address] [place] [address], [facility] Hemoglobin (Bld) [Mass/Vol] 8.8 g/dL Low 13.0-17. 0 [facility] Comment on above: Order Comment: No: D o not add to previous draw Performed By: #### 3 5199, 88624 #### [facility] [address] [place] [address], [facility] MCH (RBC) [Entitic mass] 29.2 pg Normal 27.0-33.0 [facility] Comment on above: Order Comment: No: D o not add to previous draw Performed By: #### 3 5199, 92002 #### [facility] [address] [place] [address], [facility] MCHC (RBC) [Mass/Vol] 31.9 g/dL Low 32.0-35.0 [facility] Comment on above: Order Comment: No: D o not add to previous draw Performed By: #### 3 5199, 23308 #### [facility] [address] [place] [address], [place] MCV (RBC) [Entitic vol] 91.7 fL Normal 82.0-98.0 [facility] Comment on above: Order Comment: No: D o not add to previous draw Performed By: #### 3 5199, 73310 #### [facility] [address] [place] [address], [facility] Nucleated RBC/100 WBC (Bld) [Ratio] 0 % Normal 0-0 [facility] Comment on above: Order Comment: No: D o not add to previous draw Performed By: #### 3 5200, 92094 #### [facility] [address] [place] [id number], [facility] PLAT CNT 269 10*3/uL Normal 150-400 [facility] Comment on above: Order Comment: No: D o not add to previous draw Performed By: #### 3 5200, 64292 #### [facility] [address] [facility] [place] [address], [facility] RBC (Bld) [#/Vol] 3.01 10*6/uL Low 4.20-5.70 The [facility] Comment on above: Order Comment: No: D o not add to previous draw Performed By: #### 3 5200, 85748 #### [facility] [address] [facility] [place] [address], [facility] WBC (Bld) [#/Vol] 10.88 10*3/uL High 4.00-10.60 [facility] Comment on above: Order Comment: No: D o not add to previous draw Performed By: #### 3 5200, 80938 #### [facility] [address] [facility] [place] [address], [facility] CPKon 12-03-2021 CK [Catalytic activity/Vol] 24 U/L Low 30-223 [facility] Comment on above: Performed By: #### 0 0121, 11259, 26997 #### [facility] [address] [facility] [place] [address], [facility] MAGNESIUM BLOODon 12-03-2021 Magnesium [Mass/Vol] 2.4 mg/dL Normal 1.9-2.7 [facility] Comment on above: Order Comment: No: D o not add to previous draw Performed By: #### 0 0121, 80329, 44224 #### [facility] [address] [place] [address], [place] PHOSPHORUS BLOODon 2 Phosphate [Mass/Vol] 2.3 mg/dL Low 2.5-5.0 [facility] Comment on above: Order Comment: No: D o not add to previous draw Performed By: #### 0 0121, 78587, 30551 #### [facility] [address] [place] [address], [place] POC GLUCOSE LABon 12-03-2021 Glucose [Mass/Vol] 275 mg/dL High 70-100 [facility] Comment on above: Performed By: #### 3 5200, 15781 #### [facility] [address] [place] [address], [place] Glucose [Mass/Vol] 325 mg/dL High 70-100 [facility] Comment on above: Performed By: #### 3 5200, 83946 #### [facility] [address] [place] [address], [place] Glucose [Mass/Vol] 312 mg/dL High 70-100 [facility] Comment on above: Performed By: #### 3 5200, 73388 #### [facility] [address] [place] [address], [place] Glucose [Mass/Vol] 202 mg/dL High 70-100 [facility] Comment on above: Performed By: #### 3 5200, 74158 #### [facility] [address] [place] [address], [place] TROPONIN-Ion 12-03-2021 Troponin I.cardiac [Mass/Vol] 0.03 ng/mL Normal 0.00-0 .04 [facility] Comment on above: Order Comment: No: D o not add to previous draw Result Comment: REFE RENCE RANGES: 0.00 - 0.04 ng/ml NORMAL 0.05 - 0.50 ng/ml INDETERMINATE > 0.50 ng/ml CONSISTENT WITH AN M.I. Performed By: #### 3 5200 #### [facility] [address] [facility]. [address] Troponin I.cardiac [Mass/Vol] 0.07 ng/mL High 0.00-0 .04 [facility] Comment on above: Order Comment: No: D o not add to previous draw Result Comment: REFE RENCE RANGES: 0.00 - 0.04 ng/ml NORMAL 0.05 - 0.50 ng/ml INDETERMINATE > 0.50 ng/ml CONSISTENT WITH AN M.I. Performed By: #### 3 5200, 70645 #### [facility] [address] TSH3 WITH REFLEX FT4on 12-03 TSH 3RD GENERATION 0.64 uIU/mL Normal 0.34-5.60 [facility] Comment on above: Order Comment: Yes: Add to Previous draw if able Performed By: #### 3 5200, 13870 #### [facility] [address] UFH HEPARIN ASSAYon 12-03-19 22 UNFRACTIONATED HEPARIN <0.10 Critically low 0.30-0.70 [facility] Comment on above: Result Comment: Resu lt checked and called. Accurately read back by JADE JO ON 12/03/2021 AT 12:35 Rivaroxaban and Apixaban will interfere with the anti Xa assay used to monitor UFH and LMWH. Performed By: #### 3 5200, 06737 #### [facility] [address] *BLOOD CULTUREon 12-02-2021 *BLOOD CULTURE Clinical Report: (D) Specimen: BLOOD CULTURE Collected: 12/02/2021 20:10 Status: Final Last Updated: 12/08/2021 07:52 (1) RH 2010 CULT RES (Final) No Growth Day 5 Normal The [facility] Comment on above: Order Comment: No: D o not add to previous draw Performed By: #### 3 5200, 56888 #### [facility] [address] *BLOOD CULTURE Clinical Report: (D) Specimen: BLOOD CULTURE Collected: 12/02/2021 20:05 Status: Final Last Updated: 12/08/2021 07:52 (1) LH 2005 CULT RES (Final) No Growth Day 5 Normal [facility] Comment on above: Order Comment: Yes: Add to Previous draw if able Performed By: #### 3 5200, 60209 #### [facility] [address] BNP (B-TYPE NATRIURETIC PEPT KARRIE)on 12-02-2021 Natriuretic peptide B (Bld) [Mass/Vol] 115 pg/mL High 0-100 [facility] Comment on above: Order Comment: No: D o not add to previous draw Result Comment: Give n the appropriate clinical setting a BNP result of >100 pg/mL indicates congestive heart failure. Performed By: #### 0 0121, 86176, 48178 #### [facility] [address] CBC W/DIFFon 12-02-2021 ABS IMM GRANS 0.1 10*3/uL Normal 0.0-0.2 [facility] Comment on above: Order Comment: No: D o not add to previous draw Performed By: #### 0 0121, 89419, 68851 #### [facility] [address] ABS NEUTROPHILS 7.5 10*3/uL Normal 1.6-7.6 [facility] Comment on above: Order Comment: No: D o not add to previous draw Performed By: #### 0 0121, 99944, 06620 #### [facility] [address] [place] [address], [facility] Basophils (Bld) [#/Vol] 0.1 10*3/uL Normal 0.0-0.2 [facility] Comment on above: Order Comment: No: D o not add to previous draw Performed By: #### 0 0121, 25935, 50957 #### [facility] [address] [place] [address], [facility] Basophils/100 WBC (Bld) 0.7 % Normal 0.0-1.0 T [facility] Comment on above: Order Comment: No: D o not add to previous draw Performed By: #### 0 0121, 75796, 74257 #### [facility] [address] [facility] [place] [address], [facility] Eosinophils (Bld) [#/Vol] 1.3 10*3/uL High 0.0-0.5 [facility] Comment on above: Order Comment: No: D o not add to previous draw Performed By: #### 0 0121, 86332, 80122 #### [facility] [address] [place] [address], [facility] Eosinophils/100 WBC (Bld) 10.2 % High 0.0-6.0 [facility] Comment on above: Order Comment: No: D o not add to previous draw Performed By: #### 0 0121, 58336, 21553 #### [facility] [address] [place] [address], [facility] Erythrocyte distribution wid th (RBC) [Ratio] 15.9 % High 11.5-15.0 [facility] Comment on above: Order Comment: No: D o not add to previous draw Performed By: #### 0 0121, 71809, 45958 #### [facility] [address] [place] [address], [facility] Hematocrit (Bld) [Volume fraction] 31.1 % Low 39.0-50.0 [facility] Comment on above: Order Comment: No: D o not add to previous draw Performed By: #### 0 0121, 45874, 72333 #### [facility] [address] [facility] [place] [address], [facility] Hemoglobin (Bld) [Mass/Vol] 9.7 g/dL Low 13.0-17. 0 [facility] Comment on above: Order Comment: No: D o not add to previous draw Performed By: #### 0 0121, 37369, 20607 #### [facility] [address] [place] [address], [facility] IMMATURE GRANS 0.4 % Normal 0.0-1.0 [facility] Comment on above: Order Comment: No: D o not add to previous draw Performed By: #### 0 0121, 67627, 71428 #### [facility] [address] [place] [address], [facility] Lymphocytes (Bld) [#/Vol] 2.5 10*3/uL Normal 1.2-4.0 [facility] Comment on above: Order Comment: No: D o not add to previous draw Performed By: #### 0 0121, 33256, 85653 #### [facility] [address] [place] [address], [facility] Lymphocytes/100 WBC (Bld) 20.6 % Normal 20.0-45.0 [facility] Comment on above: Order Comment: No: D o not add to previous draw Performed By: #### 0 0121, 85519, 76162 #### [facility] [address] [facility] [place] [address], [facility] MCH (RBC) [Entitic mass] 29.0 pg Normal 27.0-33.0 [facility] Comment on above: Order Comment: No: D o not add to previous draw Performed By: #### 0 0121, 29843, 59146 #### [facility] [address] [place] [address], [facility] MCHC (RBC) [Mass/Vol] 31.2 g/dL Low 32.0-35.0 [facility] Comment on above: Order Comment: No: D o not add to previous draw Performed By: #### 0 0121, 14239, 76641 #### [facility] [address] [facility] [address], [facility] MCV (RBC) [Entitic vol] 93.1 fL Normal 82.0-98.0 T mario [facility] Comment on above: Order Comment: No: D o not add to previous draw Performed By: #### 0 0121, 76176, 64529 #### [facility] [address] [place] [address], [facility] Monocytes (Bld) [#/Vol] 0.9 10*3/uL Normal 0.1-1.0 [facility] Comment on above: Order Comment: No: D o not add to previous draw Performed By: #### 0 0121, 19531, 71960 #### [facility] [address] [facility]. [address] MONOS 7.0 % Normal 5.0-12.0 [facility] Comment on above: Order Comment: No: D o not add to previous draw Performed By: #### 0 0121, 83051, 75867 #### [facility] [address] [facility] [place] [address], [facility] Neutrophils/100 WBC (Bld) 61.1 % Normal 40.0-72.0 [facility] Comment on above: Order Comment: No: D o not add to previous draw Performed By: #### 0 0121, 43503, 04056 #### [facility] [address] [facility] [place] [address], [facility] Nucleated RBC/100 WBC (Bld) [Ratio] 0 % Normal 0-0 [facility] Comment on above: Order Comment: No: D o not add to previous draw Performed By: #### 0 0121, 41498, 14128 #### [facility] [address] [place] [id number], [facility] PLAT CNT 280 10*3/uL Normal 150-400 [facility] Comment on above: Order Comment: No: D o not add to previous draw Performed By: #### 0 0121, 66696, 02464 #### [facility] [address] [place] [address], [facility] RBC (Bld) [#/Vol] 3.34 10*6/uL Low 4.20-5.70 [facility] Comment on above: Order Comment: No: D o not add to previous draw Performed By: #### 0 0121, 07899, 72545 #### [facility] [address] [place] [address], [facility] WBC (Bld) [#/Vol] 12.30 10*3/uL High 4.00-10.60 [facility] Comment on above: Order Comment: No: D o not add to previous draw Performed By: #### 0 0121, 30690, 51983 #### [facility] [address] [facility] [address] COMP METABOLIC PANELon 12-02 Albumin [Mass/Vol] 2.9 g/dL Low 3.5-5.7 [facility] Comment on above: Order Comment: No: D o not add to previous draw Performed By: #### 0 0121, 12055, 27976 #### [facility] [address] [facility] [place] [address], [facility] ALKALINE PHOSPH 96 IU/L Normal 34-104 [facility] Comment on above: Order Comment: No: D o not add to previous draw Performed By: #### 0 0121, 89130, 24564 #### [facility] [address] [facility] [place] [address], [facility] ALT [Catalytic activity/Vol] 112 U/L High 7-52 [facility] Comment on above: Order Comment: No: D o not add to previous draw Performed By: #### 0 0121, 27255, 80074 #### [facility] [address] [place] [address], [place] AST [Catalytic activity/Vol] 115 U/L High 13-39 [facility] Comment on above: Order Comment: No: D o not add to previous draw Performed By: #### 0 0121, 30538, 64850 #### [facility] [address] [place] [address], [place] Bilirubin [Mass/Vol] 0.2 mg/dL Low 0.3-1.0 [facility] Comment on above: Order Comment: No: D o not add to previous draw Performed By: #### 0 0121, 65453, 05873 #### [facility] [address] [place] [address], [place] Calcium [Mass/Vol] 8.6 mg/dL Normal 8.6-10.3 [facility] Comment on above: Order Comment: No: D o not add to previous draw Performed By: #### 0 0121, 43357, 99512 #### [facility] [address] [place] [address], [place] Chloride [Moles/Vol] 106 mmol/L Normal 98-107 [facility] Comment on above: Order Comment: No: D o not add to previous draw Performed By: #### 0 0121, 39360, 94960 #### [facility] [address] [place] [address], [place] CO2 [Moles/Vol] 20 mmol/L Low 21-31 [facility] Comment on above: Order Comment: No: D o not add to previous draw Performed By: #### 0 0121, 26178, 35257 #### [facility] [address] [place] [address], [place] Creatinine [Mass/Vol] 1.80 mg/dL High 0.70-1.30 [facility] Comment on above: Order Comment: No: D o not add to previous draw Performed By: #### 0 0121, 16685, 74404 #### [facility] [address] [place] [address], [place] eGFR- 44 ml/min/1.73sq m Abnormal >60 [facility] Comment on above: Order Comment: No: D o not add to previous draw Result Comment: Calc ulation may not be valid for patients over 70 years Performed By: #### 0 0121, 50328, 20873 #### [facility] [address] [place] [address], [place] eGFR- non- 36 ml/min/1.73sq m Abnormal > 60 [facility] Comment on above: Order Comment: No: D o not add to previous draw Result Comment: Calc ulation may not be valid for patients over 70 years Performed By: #### 0 0121, 11234, 25549 #### [facility] [address] [place] [address], [place] Glucose [Mass/Vol] 125 mg/dL High 70-100 [facility] Comment on above: Order Comment: No: D o not add to previous draw Performed By: #### 0 0121, 47010, 28591 #### [facility] [address] [place] [address], [place] Potassium [Moles/Vol] 4.2 mmol/L Normal 3.5-5.1 [facility] Comment on above: Order Comment: No: D o not add to previous draw Performed By: #### 0 0121, 86372, 81358 #### [facility] [address] [place] [address], [place] Protein [Mass/Vol] 6.3 g/dL Normal 6.0-8.3 [facility] Comment on above: Order Comment: No: D o not add to previous draw Performed By: #### 0 0121, 26142, 61754 #### [facility] [address] [place] [address], [place] Sodium [Moles/Vol] 134 mmol/L Low 136-145 [facility] Comment on above: Order Comment: No: D o not add to previous draw Performed By: #### 0 0121, 21110, 62040 #### [facility] [address] [place] [address], [facility] Urea nitrogen [Mass/Vol] 41 mg/dL High 7-25 [facility] Comment on above: Order Comment: No: D o not add to previous draw Performed By: #### 0 0121, 05581, 84940 #### [facility] [address] [place] [address], [facility] LACTATE WITH REFLEXon 2021 Lactate [Moles/Vol] 1.1 mmol/L Normal .5-2.2 [facility] Comment on above: Order Comment: No: D o not add to previous draw Performed By: #### 3 5200, 89712 #### [facility] [address] [facility] [address], [facility] MAGNESIUM BLOODon 12-02-2021 Magnesium [Mass/Vol] 1.2 mg/dL Critically low 1.9-2.7 [facility] Comment on above: Order Comment: No: D o not add to previous draw Performed By: #### 0 0121, 57430, 67884 #### [facility] [address] [facility] [address], [facility] POC GLUCOSE LABon 12-02-2021 Glucose [Mass/Vol] 179 mg/dL High 70-100 [facility] Comment on above: Performed By: #### 3 5200, 18064 #### [facility] [address] [facility] [place] [address], [facility] PORTABLE CHEST 1 VIEWon 11-22 PORTABLE CHEST 1 VIEW [facility] Department of Radiology [address] [place] [id number] Patient Name: JOSE FERREIRA : 1940 Sex: M Age: Race: White Pt. Location: [id number] Patient Status: I Ordered Date: 12/02/2021 7:35:00 PM Completed Date: 12/02/2021 09:58 PM Requesting Provider: LUIS M ZAMBRANO Attending Provider: MARGARITA AVILEZ Report Copy To: Signs & Symptoms: Post Line Placement History: Comments: Check Line Position, pic Exam: PORTABLE CHEST 1 VIEW PORTABLE CHEST 1 VIEW 12/02/2021 9:58 PM CLINICAL INDICATIONS: Post Line Placement TECHNOLOGIST COMMENTS: Post Line Placement QUESTION FOR THE RADIOLOGIST: Check Line Position, pic PROTOCOL: AP(PA) view was obtained. COMPARISON: 10/29/2018 FINDINGS: AP upright portable view of the chest. Cardiac silhouette is mildly enlarged and aorta is tortuous with vascular calcification at the aortic knob similar to prior study. Parenchymal opacities in the periphery of the right lung and posterior extent left lower lobe worrisome for multifocal pneumonia which could be Covid 19 viral pneumonia in nature. Left subclavian pacer was intact wires in the right atrium and right ventricle, unchanged. Right upper extremity PICC line with the tip in satisfactory position within the SVC. Blunting of the costophrenic angles suggesting small bilateral effusions. The mandible obscures part of the lung apex bilaterally. IMPRESSION: Multifocal parenchymal opacities possibly represent Covid 19 viral pneumonia. Satisfactory position of right upper extremity PICC line. Electronically signed: Michael Calrke. Transcribed by: [email or web address], User Resident: Electronically Signed by: MICHAEL CLARKE @ 12/02/2021 10:07 PM Normal [facility] Comment on above: Order Comment: No: D o not add to previous draw PROCALCITONINon 12-02-2021 PROCALCITONIN 1.09 ng/mL High 0.00-0.[address] [facility] Comment on above: Order Comment: No: D o not add to previous draw Result Comment: Susp ected Lower Respiratory Tract Infection: 0.1-0.25ng/mL- Low likelihood for bacterial infection;Antibiotics discouraged.* >0.25ng/mL- Increased likelihood bacterial infection;Antibiotics encouraged. Suspected Sepsis: Strongly consider initiating antibiotics in all unstable patients. 0.1-0.5ng/mL- Low likelihood for sepsis; Antibiotics discouraged.* >0.5ng/mL- Increased likelihood sepsis; Antibiotics encouraged. >2.0ng/mL- High risk of sepsis/septic shock; Antibiotics strongly encouraged. *Recommend retesting PCT within 6-12hours if clinically indicated and initial PCT<0.5ng/mL Performed By: #### 3 1488 #### [address] [place] [address], [facility] PROTHROMBIN TIMEon 2 INR Coag (PPP) [Relative time] 1.29 {INR} High 0.91-1.16 [facility] Comment on above: Order Comment: No: D o not add to previous draw Result Comment: ACCC P RECOMMENDED INR FOR WARFARIN THERAPY ------- CONDITION INR PROPHYLAXIS OF VENOUS THROMBOSIS 2-3 (HIGH-RISK SURGERY) TREATMENT OF VENOUS THROMBOSIS 2-3 TREATMENT OF PULMONARY EMBOLISM 2-3 PREVENTION OF SYSTEMIC EMBOLISM: 2-3 ACUTE MYOCARDIAL INFARCTION TISSUE HEART VALVES VALVULAR HEART DISEASE ATRIAL FIBRILLATION RECURRENT SYSTEMIC EMBOLISM MECHANICAL HEART VALVE 2.5-3.5 FROM: ORAL ANTICOAGULANTS. MECHANISM OF ACTION, CLINICAL EFFECTIVENESS, AND OPTIMAL THERAPEUTIC RANGE. CHEST 1995;108:231S-246S. Performed By: #### 0 0121, 76977, 72302 #### [facility] [address] PT Coag (PPP) [Time] 16.0 s High 12.3-14.8 [facility] Comment on above: Order Comment: No: D o not add to previous draw Result Comment: ALL RESULTS MUST BE INTERPRETED WITH RESPECT TO BLOOD DRAWING ARTIFACT OR DILUTION ERROR OF ANTICOAGULANT AT THE TIME OF SAMPLING. Performed By: #### 0 0121, 16318, 71716 #### [facility] [address] [facility]. [address] TROPONIN-Ion 12-02-2021 Troponin I.cardiac [Mass/Vol] 0.03 ng/mL Normal 0.00-0 .04 [facility] Comment on above: Order Comment: No: D o not add to previous draw Result Comment: REFE RENCE RANGES: 0.00 - 0.04 ng/ml NORMAL 0.05 - 0.50 ng/ml INDETERMINATE > 0.50 ng/ml CONSISTENT WITH AN M.I. Performed By: #### 0 0121, 36048, 70288 #### [facility] [address] [facility] [place] [address], [facility] US Venous, Unilat, Lower Ext Righton 10-20-2021 US Venous, Unilat, Lower Ext Right HISTORY: Right calf pain for 2 weeks. History of recent surgery. TECHNIQUE: Duplex sonographic evaluation was performed of the right lower extremity. COMPARISON: None available FINDINGS: Duplex sonographic evaluation of the right lower extremity from the thigh to the knee shows normal phasic flow, augmentation, and compression of the deep veins. No soft tissue mass or fluid collection. IMPRESSION: No sonographic evidence of deep venous thrombosis of the right lower extremity. Report reported and signed by Jacob Puckett on 10/20/2021 1339 Normal [facility] Cult,Aerobe/Anaerobeon 02-03 Cult,Aerobe/Anaerobe Specimen Descriptio n .WOUND .FOOT LEFT .TISSUE Special Requests NOT REPORTED Direct Exam NO NEUTROPHILS SEEN RARE GRAM POSITIVE COCCI Culture PSEUDOMONAS AERUGINOSA MODERATE GROWTH METHICILLIN RESISTANT STAPHYLOCOCCUS AUREUS MODERATE GROWTH DIPHTHEROIDS MODERATE GROWTH NO ANAEROBIC ORGANISMS ISOLATED AT 5 DAYS Report Status FINAL 02/05/2019 SUSCEPTIBILITY Organism PSEUDOMONAS AERUGINOSA Method DAT Amikacin NOT REPORTED Cefazolin NOT REPORTED Cefepime <=1 SUSCEPTIBLE Ciprofloxacin <=0.25 SUSCEPTIBLE Gentamicin <=1 SUSCEPTIBLE Meropenem NOT REPORTED Tigecycline NOT REPORTED Tobramycin <=1 SUSCEPTIBLE Piperacillin/Tazobactam 8 SUSCEPTIBLE SUSCEPTIBILITY Organism METHICILLIN RESISTANT STAPHYLOCOCCUS AUREUS Method DAT Penicillin NOT REPORTED Cefoxitin Screen NOT REPORTED Ciprofloxacin NOT REPORTED Clindamycin <=0.25 RESISTANT Erythromycin >=8 RESISTANT Gentamicin <=0.5 SUSCEPTIBLE Gentamicin is used only in combination with other active agents that test susceptible. Induced Clind Resist POSITIVE Levofloxacin >=8 RESISTANT Linezolid NOT REPORTED Moxifloxacin NOT REPORTED Nitrofurantoin NOT REPORTED Oxacillin >=4 RESISTANT Synercid NOT REPORTED Rifampin NOT REPORTED Tetracycline <=1 SUSCEPTIBLE Tigecycline NOT REPORTED Trimethoprim/Sulfa <=10 SUSCEPTIBLE Vancomycin <=0.5 SUSCEPTIBLE Normal [facility] Comment on above: Performed By: #### A ANC #### [facility] [employer] [address] [place] [id number] Herpetology Teacher: Zach Mckeon MD Cult,Aerobe/Anaerobeon 09-08 Cult,Aerobe/Anaerobe Specimen Descriptio n .WOUND LEFT FOOT Special Requests NOT REPORTED Direct Exam NO NEUTROPHILS SEEN NO BACTERIA SEEN Culture METHICILLIN RESISTANT STAPHYLOCOCCUS AUREUS HEAVY GROWTH NO ANAEROBIC ORGANISMS ISOLATED AT 5 DAYS Report Status FINAL 09/11/2018 SUSCEPTIBILITY Organism METHICILLIN RESISTANT STAPHYLOCOCCUS AUREUS Method DAT Penicillin 0.25 RESISTANT Cefoxitin Screen NOT REPORTED Ciprofloxacin NOT REPORTED Clindamycin <=0.25 RESISTANT Erythromycin >=8 RESISTANT Gentamicin <=0.5 SUSCEPTIBLE Induced Clind Resist POSITIVE Levofloxacin >=8 RESISTANT Linezolid NOT REPORTED Moxifloxacin NOT REPORTED Nitrofurantoin NOT REPORTED Oxacillin RESISTANT Synercid NOT REPORTED Rifampin NOT REPORTED Tetracycline <=1 SUSCEPTIBLE Tigecycline NOT REPORTED Trimethoprim/Sulfa <=10 SUSCEPTIBLE Vancomycin 1 SUSCEPTIBLE Normal [facility] Comment on above: Performed By: #### A ANC #### [facility] [address] [place] [address] [facility] [address] [place] [id number] Prealbuminon 08-16-2018 Prealbumin [Mass/Vol] 32.3 mg/dL Normal 20-40 [facility] Comment on above: Performed By: #### P ALB, TP #### [address] [address] Protein, Totalon 08-16-2018 Protein [Mass/Vol] 7.6 g/dL Normal 6.4-8.3 [facility] Comment on above: Performed By: #### P ALB, TP #### [address] [address] Vital Signs Date Time Vital Sign Value Performing Clinician Moises domínguez 09-24-2023 11:07-0500 Blood Pressure Location Ozzy CONTEH [facility] 09-24-2023 11:07-0500 Diastolic blood pressure 66 mm[Hg] Ozzy CONTEH [facility] 09-24-2023 11:07-0500 Heart rate 60 /min Ozzy CONTEH [facility] 09-24-2023 11:07-0500 Respiratory rate 16 /min Ozzy CONTEH [facility] 09-24-2023 11:07-0500 Systolic blood pressure 95 mm[Hg] Ozzy CONTEH [facility] 08-27-2023 12:44-0500 Blood Pressure Location Ozzy CONTEH [facility] 08-27-2023 12:44-0500 Diastolic blood pressure 77 mm[Hg] Ozzy CONTEH [facility] 08-27-2023 12:44-0500 Heart rate 97 /min Ozzy CONTEH [facility] 08-27-2023 12:44-0500 Systolic blood pressure 111 mm[Hg] Ozzy CONTEH [facility] Encounters Encounter Date Encounter Type Care Provider Facility Start: 10-19-2023 ambulatory Ozzy CONTEH Facili ty:[facility] Start: 09-28-2023 End: 09-28-2023 ambulatory [facility] Start: 09-26-2023 End: 09-26-2023 ambulatory GINNY Laura APLING Not Available Start: 09-24-2023 End: 09-25-2023 ambulatory Ozzy CONTEH Facility:[facility] Start: 09-24-2023 End: 09-24-2023 Patient encounter procedure Ozzy CONTEH [facility] Start: 09-12-2023 End: 09-13-2023 ambulatory VALENCIA WALSH Facility:[facility] Start: 09-12-2023 End: 09-12-2023 Patient encounter procedure VALENCIA WALSH [facility] Start: 08-30-2023 End: 08-31-2023 ambulatory Ozzy CONTEH Facility:[id number] Start: 08-29-2023 End: 08-29-2023 ambulatory MUSA VIDAL [facility] Start: 08-27-2023 End: 08-28-2023 ambulatory Ozzy CONTEH Facility:[facility] Start: 08-27-2023 End: 08-27-2023 Patient encounter procedure Ozzy CONTEH [facility] Start: 08-06-2023 End: 08-06-2023 ambulatory [facility] Start: 06-18-2023 End: 06-19-2023 ambulatory Ozzy CONTEH Facility:[facility] Start: 06-18-2023 End: 06-18-2023 Patient encounter procedure Ozzy CONTEH [facility] Start: 04-16-2023 End: 04-16-2023 ambulatory [facility] Start: 04-04-2023 End: 04-04-2023 ambulatory FELIX [facility] Start: 03-28-2023 End: 03-28-2023 ambulatory NIA [facility] Start: 03-27-2023 End: 03-27-2023 ambulatory [facility] Start: 02-09-2023 End: 02-10-[address] FARZAD DODSON . Facility:[facility] Start: 01-10-2023 End: 01-11-2023 Evaluation and management of inpatient DR FARZAD DODSON . Facility:[facility] Start: 01-09-2023 End: 01-09-2023 ambulatory [facility] Start: 01-05-2023 End: 01-05-[address] VALENTÍN ZIMMERMAN Facility:[facility] Start: 01-01-2023 End: 01-01-2023 ambulatory [facility] Start: 12-18-2022 End: 12-19-2022 ambulatory Ozzy CONTEH Facility[facility] Start: 12-18-2022 End: 12-18-2022 Lab Drop off Ozzy CONTEH [facility] Start: 12-18-2022 End: 12-19-2022 ambulatory Ozzy CONTEH Facility:[facility] Start: 12-05-2022 End: 12-05-[address] FARZAD DODSON . Facility:[facility] Start: 11-29-2022 End: 11-30-[address] FARZAD DODSON . Facility:[facility] Start: 11-01-2022 ambulatory [facility] Start: 10-31-2022 End: 11-01-[address] FARZAD DODSON . Facility:[facility] Start: 10-31-2022 End: 10-31-2022 ambulatory NIA [facility] Start: 05-09-2022 End: 05-10-[address] FARZAD DODSON . Facility:[facility] Start: 04-05-2022 End: 04-05-2022 Patient encounter procedure Ozzy CONTEH [facility] Start: 03-17-[address] FARZAD DODSON . Facili ty:[facility] Start: 04-22-2019 End: 04-23-2019 Patient encounter procedure [facility] Start: 04-11-2019 End: 04-12-2019 Patient encounter procedure [facility] Start: 04-04-2019 End: 04-05-2019 Patient encounter procedure [facility] Start: 03-25-2019 End: 03-26-2019 Patient encounter procedure [facility] Start: 03-21-2019 End: 03-22-2019 Patient encounter procedure KHASE A [facility] Start: 03-14-2019 End: 03-15-2019 Patient encounter procedure MUSA A [facility] Start: 03-07-2019 End: 03-08-2019 Patient encounter procedure MUSA A [facility] Start: 02-28-2019 End: 03-01-2019 Patient encounter procedure KHTARSHA A [facility] Start: 02-21-2019 End: 02-22-2019 Patient encounter procedure KHTARSHA A [facility] Start: 02-14-2019 End: 02-15-2019 Patient encounter procedure KHTARSHA A [facility] Start: 02-07-2019 End: 02-08-2019 Patient encounter procedure MUSA Thomas [facility] Start: 01-31-2019 End: 02-01-2019 Patient encounter procedure MUSA Thomas [facility] Start: 01-24-2019 End: 01-25-2019 Patient encounter procedure MUSA Thomas [facility] Start: 01-10-2019 End: 01-11-2019 Patient encounter procedure MUSA Thomas [facility] Start: 11-29-2018 End: 11-30-2018 Patient encounter procedure MUSA Thomas [facility] Start: 11-08-2018 End: 11-09-2018 Patient encounter procedure MUSA Thomas [facility] Start: 10-18-2018 End: 10-19-2018 Patient encounter procedure KHTARSHA A [facility] Start: 10-04-2018 End: 10-05-2018 Patient encounter procedure KHASE A [facility] Start: 09-27-2018 End: 09-28-2018 Patient encounter procedure KHTARSHA A [facility] Start: 09-20-2018 End: 09-21-2018 Patient encounter procedure MUSA A [facility] Start: 09-06-2018 End: 09-07-2018 Patient encounter procedure NASH OMALLEY [facility] Start: 08-30-2018 End: 08-31-2018 Patient encounter procedure RIMA RICCIHN [facility] Start: 08-23-2018 End: 08-24-2018 Patient encounter procedure NASH OMALLEY [facility] Start: 08-16-2018 End: 08-17-2018 Patient encounter procedure RIMA TEJEDA [facility] Start: 08-16-2018 End: 08-16-2018 Patient encounter procedure RIMA TEJEDA [facility] Procedures Date Procedure Procedure Detail Performing Clinician Start: 08-30-2023 Cystostomy and inser tion of suprapubic catheter Ozzy CONTEH Start: 01-31-2019 Cul prsmptv pthgnc o rganism scrn w/colony estimj RIMA TEJEDA Start: 01-10-2019 NURSING COMMUNICATION A DAYAMI TEJEDA Start: 11-29-2018 NURSING COMMUNICATION A DAYAMI TEJEDA Start: 11-08-2018 NURSING COMMUNICATION A DAYAMI TEJEDA Start: 10-04-2018 NURSING COMMUNICATION A DAYAMI TEJEDA Start: 09-27-2018 NURSING COMMUNICATION A DAYAMI TEJEDA Start: 09-20-2018 NURSING COMMUNICATION William DAYAMIWilliam TEJEDA Start: 09-06-2018 ANAEROBIC AND AEROBI C CULTURE RIMA TEJEDA Start: 08-30-2018 WOUND CARE RIMA RUIZ N Start: 08-16-2018 Prealbumin [Mass/Vol] A DAYAMI ILEANA Start: 08-16-2018 Protein xcpt refract ometry serum plasma/whl bld RIMA TEJEDA Start: 08-16-2018 WOUND CARE RIMA RUIZ N Start: 01-19-1999 TRUS/BX Ozzy MANCINI TERS Start: 11-15-1998 CYSTO 1 Ozzy TORRESS Comment on above: STENT REMOVAL, BI LA TERAL Start: 11-15-1998 RADICAL RETROPUBIC P ROSTATECTOMY W/ BPLND Ozzy CONTEH Start: 11-12-1998 right ESWL 2 Ozzy TORRESS Comment on above: Bi lateral w/ double J stents Start: 10-01-1998 right ESWL Ozzy MANCINI TERS Start: 09-23-1996 TRUS/BX Ozzy MANCINI TERS Acquired trigger finger (disorder) Ozzy CONTEH Amputation of toe Ozzy RHODES Cardiac pacemaker, d evice (physical object) Ozzy CONTEH Cataract surgery Ozzy PORTER ERS left ESWL Ozzy CONTEH Procedure on wrist Ozzy Ruiz ATEJESUS ALBERTO Release of trigger finger Cuong CONTEH repair of eardrum Ozzy RHODES Immunizations Immunization Date Immunization Notes Care Provider Vickie jamison 11-15-2020 SARS-CoV-2 (COVID-19 ) mRNA BNT-162b2 vax Ozzy CONTEH [facility] Comment on above: Result Comment: seco nd dose given 12/08/2020 Payers Date Payer Category Payer Medicare [id number] 1961 Medicare [id number] 1961 Self-pay [id number] 1961 Unknown [id number] 1938 Unknown [id number] 2.16.8 40.1.919435.3.579.2.176 1938 Unknown [id number] 2.16.8 40.1.927922.3.579.2.176 1938 Unknown [id number] 2.16.8 40.1.738456.3.579.2.176 1938 Unknown [id number] 2.16.8 40.1.477208.3.579.2.176 1938 Unknown [id number] 2.16.8 40.1.030050.3.579.2.176 1938 Unknown [id number] 2.16.8 40.1.537268.3.579.2.176 - Unknown [id number] 2.16.8 40.1.485823.3.579.2.176 - Unknown [id number] 2.16.8 40.1.799703.3.579.2.176 1938 Unknown [id number] 2.16.8 40.1.509858.3.579.2.176 - Unknown [id number] 2.16.8 40.1.291081.3.579.2.176 1938 Unknown [id number] 2.16.8 40.1.773371.3.579.2.176 - Unknown [id number] 2.16.8 40.1.207953.3.579.2.176 - Unknown [id number] 2.16.8 40.1.394931.3.579.2.176 1938 Unknown [id number] 2.16.8 40.1.188232.3.579.2.176 - Unknown [id number] 2.16.8 40.1.011919.3.579.2.176 1938 Unknown [id number] 2.16.8 40.1.114959.3.579.2.176 - Unknown [id number] 2.16.8 40.1.555665.3.579.2.176 1938 Unknown [id number] 2.16.8 40.1.888307.3.579.2.176 1938 Unknown [id number] 2.16.8 40.1.451411.3.579.2.176 1938 Unknown [id number] 2.16.8 40.1.656896.3.579.2.176 1938 Unknown [id number] 2.16.8 40.1.308765.3.579.2.176 1938 Unknown [id number] 2.16.8 40.1.449613.3.579.2.176 1938 Unknown [id number] 2.16.8 40.1.941683.3.579.2.176 1938 Unknown [id number] 2.16.8 40.1.197055.3.579.2.176 1938 Unknown [id number] 2.16.8 40.1.512472.3.579.2.176 1938 Unknown [id number] 2.16.84 0.1.594622.3.579.2.593 1938 Unknown [id number] 2.16.84 0.1.824585.3.579.2.593 1938 Unknown [id number] 2.16.84 0.1.954842.3.579.2.593 1938 Unknown [id number] 2.16.84 0.1.938636.3.579.2.593 1938 Unknown [id number] 2.16.84 0.1.435622.3.579.2.593 1938 Unknown [id number] 2.16.84 0.1.120887.3.579.2.593 1938 Unknown [id number] 2.16.84 0.1.073687.3.579.2.593 1938 Unknown [id number] 2.16.84 0.1.169010.3.579.2.593 1938 Unknown [id number] 2.16. 840.1.169168.3.579.2.175 1938 Unknown [id number] 2.16.8 40.1.982288.3.579.2.727 1938 Unknown [id number] 2.16.8 40.1.789934.3.579.2.727 1938 Unknown [id number] 2.16.8 40.1.196709.3.579.2.727 1938 Unknown [id number] 2.16.8 40.1.187237.3.579.2.727 1938 Unknown [id number] 2.16.8 40.1.228701.3.579.2.727 1938 Unknown [id number] 2.16.8 40.1.069119.3.579.2.727 1938 Unknown [id number] 2.16.8 40.1.584586.3.579.2.727 1938 Unknown [id number] 2.16.8 40.1.403916.3.579.2.727 1938 Unknown [id number] 2.16.840 .1.966890.3.579.2.1259 Social History Date Type Detail Facility Start: 08-01-2021 Tobacco smoking status Ex-smoker (fi nding) [facility] Sex Assigned At Male [facility] [employer] Start: 06-18-2023 End: 08-27-2023 Tobacco smoking status Never smoked tobacco (finding) [facility] Tobacco smoking status Never [facility] Functional Status Date Assessment Result Facility 09-24-2023 Functional Status N/A [facility] 08-27-2023 Functional Status N/A [facility] 06-18-2023 Functional Status N/A [facility] Clinical Notes 12-05-2021 to 09-28-2023 Note Date & Type Note Facility 09-28-2023 Note [facility] Subjective Jose Ferreira is a 83 y.o. year old male patient being seen to discuss LAAO. He denies chest pain, palpitations, and falls since last visit in Jul 2023. Gets SOB with PT/OT. 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) Chronic systolic heart failure (CMS/HCC) Coronary atherosclerosis Diabetic ulcer of left heel associated with type 2 diabetes mellitus, with fat layer exposed (CMS/HCC) Dry gangrene (CMS/HCC) Foot osteomyelitis (CMS/HCC) Gastroesophageal reflux disease Gastrointestinal hemorrhage Glycosuria History of malignant neoplasm of prostate History of renal calculi Hyperlipidemia Benign hypertensive cardiomyopathy with heart failure (CMS/HCC) Male urinary stress incontinence Onychomycosis Open wound Acute decompensated heart failure (CMS/HCC) Peritonitis (CMS/HCC) Psychiatric problem 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 (CMS/HCC) Type 2 diabetes mellitus with diabetic peripheral angiopathy and gangrene, with long-term current use of insulin (CMS/HCC) Type 2 diabetes mellitus, uncontrolled, with neuropathy Stage 3b chronic kidney disease (CMS/HCC) Hypotension due to drugs Mixed incontinence Septic joint (CMS/HCC) 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 I had seen him before on 01/01/2023 for that same purpose. The visit today is in the presence of his , daughter in law and son. he is an 83-year-old man with complex medical history including paroxysmal atrial fibrillation and elevated [id number] score of 6 who is not on anticoagulation therapy due to history of GI bleeding, recurrent major falls and excessive bruising. He is currently [facility] of the [facility]. Recently had issues with urinary obstruction and had suprapubic catheter placed. His blood pressure is borderline. Currently his family members tell me that he is at his baseline. Review of Systems HENT: Positive for hearing loss. Cardiovascular: Positive for dyspnea on exertion. Hematologic/Lymphatic: Bruises/bleeds easily. Musculoskeletal: Positive for back pain, muscle weakness and myalgias. Gastrointestinal: Positive for nausea. Neurological: Positive for headaches and light-headedness. All other systems reviewed and are negative. Objective Visit Vitals BP 98/58 (BP Location: Left arm, Patient Position: Sitting) Pulse 100 Ht 1.829 m (6') Wt 85.7 kg (189 lb) SpO2 96% BMI 25.63 kg/m??? Smoking Status Never BSA 2.09 m??? Physical Exam Constitutional: Appearance: He is well-developed. He is ill-appearing. HENT: Head: Normocephalic and atraumatic. Nose: Nose normal. Eyes: General: No scleral icterus. Pupils: Pupils are equal, round, and reactive to light. Neck: Thyroid: No thyromegaly. Vascular: No JVD. Cardiovascular: Rate and Rhythm: Normal rate and regular rhythm. Pulses: Radial pulses are 2+ on the right side and 2+ on the left side. Heart sounds: Normal heart sounds. No murmur heard. No friction rub. No gallop. Pulmonary: Effort: Pulmonary effort is normal. No respiratory distress. Breath sounds: Normal breath sounds. No wheezing or rales. Chest: Chest wall: No tenderness. Abdominal: General: Bowel sounds are normal. There is no distension. Palpations: Abdomen is soft. Tenderness: There is no abdominal tenderness. Musculoskeletal: General: No swelling. Cervical back: Neck supple. Comments: Uses a walker to help with ambulation Skin: General: Skin is warm and dry. Findings: Bruising present. Neurological: General: No focal deficit present. Mental Status: He is alert and oriented to person, place, and time. Psychiatric: Mood and Affect: Mood normal. Behavior: Behavior is cooperative. Judgment: Judgment normal. Allergies Allergies Allergen Reactions Levofloxacin Other Caused severe ankle pain Amoxicillin-Pot Clavulanate Diarrhea and Other Severe diarrhea Hydroxyzine Other Pioglitazone Diarrhea and Other Stomach pain Medications Current Outpatient Medications: albuterol 1.25 mg/3 mL nebulizer solution, Inhale 1.25 mg every 6 (six) hours if needed., Disp: , Rfl: aspirin 325 mg tablet, Take 325 mg by mouth in the morning., Disp: , Rfl: cilostazol (Pletal) 50 mg tablet, Take 50 mg by mouth in the morning and 50 mg in the e (more content not included)... [facility] 09-24-2023 Hospital Discharge instructions Patient Education 09/24/2023 12:01:30 Suprapubic Catheter Replacement Suprapubic Catheter Replacement Suprapubic catheter replacement is a procedure to remove an old catheter and insert a new, clean catheter. A suprapubic catheter is a rubber tube that drains urine from the bladder into a collection bag outside the body. The catheter is inserted into the bladder through a small opening in the lower abdomen, near the center of the body, above the pubic bone (suprapubicarea). There is a tiny balloon filled with germ-free (sterile) water on the end of the catheter that is in the bladder. The balloon helps to keep the catheter in place. If you need to wear a catheter for a long period of time, you may be instructed to replace the catheter yourself. Usually, suprapubic catheters need to be replaced every 4 6 weeks, or as often as told by your health care provider. What are the risks? Generally, this is a safe procedure. However, problems may occur, including failure to get the catheter into the bladder. What happens before the procedure? You may have an exam or testing, including a blood or urine sample. Ask your health care provider what steps will be taken to help prevent infection. What happens during the procedure? You will lie on your back. The water from the balloon will be removed using a syringe. The catheter will be slowly removed. Lubricant will be applied to the end of the new catheter that will go into your bladder. The new catheter will be inserted through the opening in your abdomen. Your health care provider will slide the catheter into your bladder. Your health care provider will wait for some urine to start flowing through the catheter. When this happens, a syringe will be used to fill the balloon with sterile water. A collection bag will be attached to the end of the catheter. The procedure may vary among health care providers and hospitals. What can I expect after procedure? After the procedure, it is common to have: Some discomfort around the opening in your abdomen. Follow these instructions at home: Caring for the skin around the catheter Use a clean washcloth and soapy water to clean the skin around your catheter every day. Pat the area dry with a clean towel. Do not pull on the catheter. Do not use ointment or lotion on this area unless told by your health care provider. Check the skin around the catheter every day for signs of infection. Check for: ?Redness, swelling, or pain. ?Fluid or blood. ?Warmth. ?Pus or a bad smell. Caring for the catheter Clean the catheter with soap and water as often as told by your health care provider. Always make sure there are no twists or curls (kinks) in the catheter. As soon as you are able to move, you may use a leg bag to collect the urine. ?Make sure that the tubing is straight and without kinks. ?Wrap an ro bandage gently over the tubing and around your leg to minimize the risk of the bag getting pulled out. Emptying the collection bag Empty the large collection bag every 8 hours. Empty the small collection bag when it is about ? full. To empty your large or small collection bag, take the following steps: Always keep the bag below the level of the catheter. This keeps urine from flowing backward into the catheter. Hold the bag over the toilet or another container. Turn the valve (spigot) at the bottom of the bag to empty the urine. ?Do not touch the opening of the spigot. ?Do not let the opening touch the toilet or container. Close the spigot tightly when the bag is empty. Cleaning the collection bag Wash your hands with soap and water. If soap and water are not available, use hand cutter barrel drum. Disconnect the bag from the catheter and immediately attach a new bag to the catheter. Empty the used bag completely. Clean the used bag according to the customer marketing manager's instructions, or as told by your health care provider. Let the bag dry completely, and put it in a clean plastic bag before storing it. General instructions Always wash your hands before and after caring for your catheter and collection bag. Use soap and water. If soap and water are not available, use hand cutter barrel drum. Always make sure there are no leaks in the catheter or collection bag. Drink enough fluid to keep your urine pale yellow. If you were prescribed an antibiotic medicine, take it as told by your health care provider. Do not stop taking the antibiotic even if you start to feel better. Do not take baths, swim, or use a hot tub. Keep all follow-up visits as told by your health care provider. This is important. Contact a health care provider if: You leak urine. You have redness, swelling, or pain around your catheter opening. You have fluid or blood coming from your catheter opening. Your catheter opening feels warm to the touch. You have pus or a bad smell coming from your catheter opening. You have a fever or chills. Your urine flow slows down. Your urine becomes cloudy or smelly. Get help right away if: Your catheter comes out. You feel nauseous. You have back pain. You have difficulty changing your catheter. You have blood in your urine. You have no urine flow for 1 hour. Summary Suprapubic catheter replacement is a procedure to remove an old catheter and insert a new, clean catheter. Make sure that you understand how to care for your catheter, your collection bag, and the opening in your abdomen. Always wash your hands before and after caring for your catheter and collection bag. Contact a health care provider if you leak urine or have a fever or any signs of infection around the catheter opening, or if your urine becomes cloudy or smelly. Get help right away if your catheter comes out or you have nausea, back pain, blood in your urine, no urine flow for 1 hour, or difficulty changing your catheter. This information is not intended to replace advice given to you by your health care provider. Make sure you discuss any questions you have with your health care provider. Document Revised: 08/15/2022 Document Reviewed: 08/15/2022 [employer] Patient Education 2022 [employer]. Follow Up Care 06/18/2023 13:16:11 With:Ozzy CONTEH MD, URL Address: [facility] [address] [place] [phone]- [phone] When: Unknown [facility] 08-31-2023 Hospital Discharge instructions Follow Up Care 08/31/2023 09:10:09 With:Ozzy CONTEH MD, URL Address: [facility] [address] [place] [address]- [phone] When: Unknown Comments:f/u already scheduled 09/24/23 [facility] 08-27-2023 Hospital Discharge instructions Patient Education 08/27/2023 13:27:53 Suprapubic Catheter Replacement Suprapubic Catheter Replacement Suprapubic catheter replacement is a procedure to remove an old catheter and insert a new, clean catheter. A suprapubic catheter is a rubber tube that drains urine from the bladder into a collection bag outside the body. The catheter is inserted into the bladder through a small opening in the lower abdomen, near the center of the body, above the pubic bone (suprapubicarea). There is a tiny balloon filled with germ-free (sterile) water on the end of the catheter that is in the bladder. The balloon helps to keep the catheter in place. If you need to wear a catheter for a long period of time, you may be instructed to replace the catheter yourself. Usually, suprapubic catheters need to be replaced every 4 6 weeks, or as often as told by your health care provider. What are the risks? Generally, this is a safe procedure. However, problems may occur, including failure to get the catheter into the bladder. What happens before the procedure? You may have an exam or testing, including a blood or urine sample. Ask your health care provider what steps will be taken to help prevent infection. What happens during the procedure? You will lie on your back. The water from the balloon will be removed using a syringe. The catheter will be slowly removed. Lubricant will be applied to the end of the new catheter that will go into your bladder. The new catheter will be inserted through the opening in your abdomen. Your health care provider will slide the catheter into your bladder. Your health care provider will wait for some urine to start flowing through the catheter. When this happens, a syringe will be used to fill the balloon with sterile water. A collection bag will be attached to the end of the catheter. The procedure may vary among health care providers and hospitals. What can I expect after procedure? After the procedure, it is common to have: Some discomfort around the opening in your abdomen. Follow these instructions at home: Caring for the skin around the catheter Use a clean washcloth and soapy water to clean the skin around your catheter every day. Pat the area dry with a clean towel. Do not pull on the catheter. Do not use ointment or lotion on this area unless told by your health care provider. Check the skin around the catheter every day for signs of infection. Check for: ?Redness, swelling, or pain. ?Fluid or blood. ?Warmth. ?Pus or a bad smell. Caring for the catheter Clean the catheter with soap and water as often as told by your health care provider. Always make sure there are no twists or curls (kinks) in the catheter. As soon as you are able to move, you may use a leg bag to collect the urine. ?Make sure that the tubing is straight and without kinks. ?Wrap an ro bandage gently over the tubing and around your leg to minimize the risk of the bag getting pulled out. Emptying the collection bag Empty the large collection bag every 8 hours. Empty the small collection bag when it is about ? full. To empty your large or small collection bag, take the following steps: Always keep the bag below the level of the catheter. This keeps urine from flowing backward into the catheter. Hold the bag over the toilet or another container. Turn the valve (spigot) at the bottom of the bag to empty the urine. ?Do not touch the opening of the spigot. ?Do not let the opening touch the toilet or container. Close the spigot tightly when the bag is empty. Cleaning the collection bag Wash your hands with soap and water. If soap and water are not available, use hand cutter barrel drum. Disconnect the bag from the catheter and immediately attach a new bag to the catheter. Empty the used bag completely. Clean the used bag according to the customer marketing manager's instructions, or as told by your health care provider. Let the bag dry completely, and put it in a clean plastic bag before storing it. General instructions Always wash your hands before and after caring for your catheter and collection bag. Use soap and water. If soap and water are not available, use hand cutter barrel drum. Always make sure there are no leaks in the catheter or collection bag. Drink enough fluid to keep your urine pale yellow. If you were prescribed an antibiotic medicine, take it as told by your health care provider. Do not stop taking the antibiotic even if you start to feel better. Do not take baths, swim, or use a hot tub. Keep all follow-up visits as told by your health care provider. This is important. Contact a health care provider if: You leak urine. You have redness, swelling, or pain around your catheter opening. You have fluid or blood coming from your catheter opening. Your catheter opening feels warm to the touch. You have pus or a bad smell coming from your catheter opening. You have a fever or chills. Your urine flow slows down. Your urine becomes cloudy or smelly. Get help right away if: Your catheter comes out. You feel nauseous. You have back pain. You have difficulty changing your catheter. You have blood in your urine. You have no urine flow for 1 hour. Summary Suprapubic catheter replacement is a procedure to remove an old catheter and insert a new, clean catheter. Make sure that you understand how to care for your catheter, your collection bag, and the opening in your abdomen. Always wash your hands before and after caring for your catheter and collection bag. Contact a health care provider if you leak urine or have a fever or any signs of infection around the catheter opening, or if your urine becomes cloudy or smelly. Get help right away if your catheter comes out or you have nausea, back pain, blood in your urine, no urine flow for 1 hour, or difficulty changing your catheter. This information is not intended to replace advice given to you by your health care provider. Make sure you discuss any questions you have with your health care provider. Document Revised: 08/15/2022 Document Reviewed: 08/15/2022 [employer] Patient Education 2022 Fab. Follow Up Care 08/15/2023 08:27:59 With:YADY SALCIDO, Ozzy Velasquez, URL Address: [facility] [address], [place] [address]- When: Unknown Comments:f/u appt already scheduled [facility] 08-22-2023 Note Pre Op Cardiovascula r evaluation RCRI- 3 points Class IV Risk 15.0 % 30-day risk of , [place], or cardiac arrest From a cardiology perspective pt is moderate risk for a low- moderate risk procedure cystoscopy and suprapubic catheter placement with Dr. Conteh. Pt may hold ASA and pletal for 5-7 days prior to procedure and resume all meds post op. Please monitor hemodynamics carefully and prevent any major fluid shifts. Thank You, Georgie Munoz [facility] 08-06-2023 Note Patient and family p resent today for revisit and discussion about possible watchman implantation in light he has history of GI bleeding and is not a current candidate for anticoagulation. They have had previous discussion with Dr. Denson and Anisha Roach regarding need for watchman implantation. Provider had extended d/w pt and family regarding watchman implantation, risks vs benefits, invasive procedure, and they wish to have further d/w Dr Denson or Anisha Roach PATIENT TRANSPORTER for decision making process. 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 [facility] 08-06-2023 Note [facility] CARDIOLOGY PROGR ESS NOTE HPI: Jose Ferreira is a 83 y.o. male here for routine F/U for watchman implantation discussion Patient here for 4 mo follow up CAD, afib, chronic systolic heart failure, and hypotension. Denies chest pain and falls. Has SOB w/wo exertion and intermittent LE edema. Taking lasix PRN. Daughter in law states they'd also like to discuss the Watchman/Amulet device. Patient is not anticoagulated due to history of GI bleed/ulcer. Still taking midodrine bid. Denied lightheadedness/dizziness or syncope. Family states he spends 90% of the day on a couch and very limited ambulation and no exercise at all r/t concerns about getting another foot wound and needing another amputation. Family states that he worries about everything and feels like he is going to soon, and the whole family has to have a meeting with him occasionally for support and reassurance. Review of Systems HENT: Positive for hearing loss. Cardiovascular: Positive for dyspnea on exertion and leg swelling. Respiratory: Positive for shortness of breath. Hematologic/Lymphatic: Bruises/bleeds easily. Musculoskeletal: Positive for back pain, muscle weakness and myalgias. Gastrointestinal: Positive for nausea. All other systems reviewed and are negative. Visit Vitals BP 118/79 (BP Location: Left arm, Patient Position: Sitting) Pulse 97 Ht 1.829 m (6') Wt 85.7 kg (189 lb) SpO2 96% BMI 25.63 kg/m??? Smoking Status Never BSA 2.09 m??? Allergies Allergen Reactions Levofloxacin Other Caused severe ankle pain Amoxicillin-Pot Clavulanate Diarrhea and Other Severe diarrhea Hydroxyzine Other Pioglitazone Diarrhea and Other Stomach pain Medications: Current Outpatient Medications on File Prior to Visit Medication Sig Dispense Refill ALPRAZolam (Xanax) 1 mg tablet Take 1 mg by mouth if needed in the morning, at noon, and at bedtime. aspirin 325 mg tablet Take 325 mg by mouth in the morning. cetirizine (ZyrTEC) 10 mg tablet Take 10 mg by mouth in the morning. cilostazol (Pletal) 50 mg tablet Take 50 mg by mouth in the morning and 50 mg in the evening. citalopram (CeleXA) 10 mg tablet 1 (one) time each day at the same time. colesevelam (Welchol) 625 mg tablet Take 2 tablets (1,250 mg) by mouth with breakfast and with evening meal. 360 tablet 3 ferrous sulfate 325 (65 Fe) MG EC tablet Take 325 mg by mouth. furosemide (Lasix) 20 mg tablet Take 20 mg by mouth if needed. gabapentin (Neurontin) 100 mg capsule 1 capsule every 8 (eight) hours. insulin glargine (Lantus) 100 unit/mL (3 mL) pen Lantus Solostar U-100 Insulin 100 unit/mL (3 mL) subcutaneous pen insulin lispro (HumaLOG) 100 unit/mL injection Humalog KwikPen (U-100) Insulin 100 unit/mL subcutaneous Lokelma 5 gram packet Take 1 packet by mouth 3 (three) times a week. lovastatin (Mevacor) 40 mg tablet Take 2 tablets (80 mg) by mouth at bedtime. 180 tablet 3 magnesium oxide (Mag-Ox) 400 mg (241.3 mg magnesium) tablet Take 400 mg by mouth in the morning and 400 mg in the evening. metFORMIN XR (Glucophage-XR) 500 mg 24 hr tablet Take 1,000 mg by mouth daily with evening meal. metoprolol succinate XL (Toprol-XL) 25 mg 24 hr tablet Take 1 tablet (25 mg) by mouth once daily as directed. Do not crush or chew. 90 tablet 3 midodrine (Proamatine) 10 mg tablet Take 1 tablet (10 mg) by mouth in the morning and at bedtime. 180 tablet 3 mirtazapine (Remeron) 45 mg tablet Take 45 mg by mouth at bedtime. montelukast (Singulair) 10 mg tablet 1 (one) time each day at the same time. omeprazole (PriLOSEC) [address] capsule omeprazole 40 mg capsule,delayed release ondansetron ODT (Zofran-ODT) 4 mg disintegrating tablet 1 tablet on the tongue and allow to dissolve Orally Q 6 hours PRN for 3 albuterol 1.25 mg/3 mL nebulizer solution Inhale 1.25 mg every 6 (six) hours if needed. No current facility-administered medications on file prior to visit. Physical Exam: Constitutional: Appearance: Normal appearance. Without apparent distress, chronically ill, frail, ambulatory via W/C HENT: Head: Normocephalic and atraumatic. Nose: Nose normal. Mouth/Throat: Mouth: Mucous membranes are moist. Eyes: Extraocular Movements: Extraocular movements intact. Conjunctiva/sclera: Conjunctivae normal. Neck: Vascular: No JVD. Cardiovascular: Rate and Rhythm: Normal rate and regular rhythm. Heart sounds: Normal heart sounds, S1 normal and S2 normal. Pulmonary: Effort: Pulmonary effort is normal. Breath sounds: Normal breath sounds. Abdominal: General: Bowel sounds are normal. Palpations: Abdomen is soft. Musculoskeletal: General: Normal range of motion. Cervical back: limited ROM, kyphotic Right lower leg: No edema. Left lower leg: No edema. Skin: General: Skin is warm and dry. Capillary Refill: Capillary refill takes less than 2 seconds. Neurological: General: No focal deficit present. Mental Status: he is lucila (more content not included)... [facility] 08-06-2023 Note Patient here for 4 m o follow up CAD, afib, chronic systolic heart failure, and hypotension. Denies chest pain and falls. Has SOB w/wo exertion and intermittent LE edema. Taking lasix PRN. Daughter in law states they'd also like to discuss the Watchman/Amulet device. Patient is not anticoagulated due to history of GI bleed/ulcer. Still taking midodrine bid. Review of Systems HENT: Positive for hearing loss. Cardiovascular: Positive for dyspnea on exertion and leg swelling. Respiratory: Positive for shortness of breath. Hematologic/Lymphatic: Bruises/bleeds easily. Musculoskeletal: Positive for back pain, muscle weakness and myalgias. Gastrointestinal: Positive for nausea. All other systems reviewed and are negative. [facility] 06-18-2023 Hospital Discharge instructions Patient Education 06/18/2023 13:10:54 Prostate Cancer Prostate Cancer The prostate is a small gland that produces fluid that makes up semen (seminal fluid). It is located below the bladder in men, in front of the rectum. Prostate cancer is the abnormal growth of cells in the prostate gland. What are the causes? The exact cause of this condition is not known. What increases the risk? You are more likely to develop this condition if: You are 65 years of age or older. You have a family history of prostate cancer. You have a family history of breast and ovarian cancer. You have genes that are passed from parent to child (inherited), such as BRCA1 and BRCA2. You have High syndrome. men and men of descent are diagnosed with prostate cancer at higher rates than other men. The reasons for this are not well understood and are likely due to a combination of genetic and environmental factors. What are the signs or symptoms? Symptoms of this condition include: Problems with urination. This may include: ?A weak or interrupted flow of urine. ?Trouble starting or stopping urination. ?Trouble emptying the bladder all the way. ?The need to urinate more often, especially at night. Blood in urine or semen. Persistent pain or discomfort in the lower back, lower abdomen, or hips. Trouble getting an erection. Weakness or numbness in the legs or feet. How is this diagnosed? This condition can be diagnosed with: A digital rectal exam. For this exam, a health care provider inserts a gloved finger into the rectum to feel the prostate gland. A blood test called a prostate-specific antigen (PSA) test. A procedure in which a sample of tissue is taken from the prostate and checked under a microscope (prostate biopsy). An imaging test called transrectal ultrasonography. Once the condition is diagnosed, tests will be done to determine how far the cancer has spread. This is called staging the cancer. Staging may involve imaging tests, such as a bone scan, CT scan, PET scan, or MRI. Stages of prostate cancer The stages of prostate cancer are as follows: Stage 1 (I). At this stage, the cancer is found in the prostate only. The cancer is not visible on imaging tests, and it is usually found by accident, such as during prostate surgery. Stage 2 (II). At this stage, the cancer is more advanced than it is in stage 1, but the cancer has not spread outside the prostate. Stage 3 (III). At this stage, the cancer has spread beyond the outer layer of the prostate to nearby tissues. The cancer may be found in the seminal vesicles, which are near the bladder and the prostate. Stage 4 (IV). At this stage, the cancer has spread to other parts of the body, such as the lymph nodes, bones, bladder, rectum, liver, or lungs. Prostate cancer grading Prostate cancer is also graded according to how the cancer cells look under a microscope. This is called the Lisy score and the total score can range from 6 10, indicating how likely it is that the cancer will spread (metastasize) to other parts of the body. The higher the score, the greater the likelihood that the cancer will spread. Lisy 6 or lower: This indicates that the cancer cells look similar to normal prostate cells (well differentiated). Lisy 7: This indicates that the cancer cells look somewhat similar to normal prostate cells (moderately differentiated). Lisy 8, 9, or 10: This indicates that the cancer cells look very different than normal prostate cells (poorly differentiated). How is this treated? Treatment for this condition depends on several factors, including the stage of the cancer, your age, personal preferences, and your overall health. Talk with your health care provider about treatment options that are recommended for you. Common treatments include: Observation for early stage prostate cancer (active surveillance). This involves having exams, blood tests, and in some cases, more biopsies. For some men, this is the only treatment needed. Surgery. Types of surgeries include: ?Open surgery (radical prostatectomy). In this surgery, a larger incision is made to remove the prostate. ?A laparoscopic radical prostatectomy. This is a surgery to remove the prostate and lymph nodes through several small incisions. It is often referred to as a minimally invasive surgery. ?A robotic radical prostatectomy. This is laparoscopic surgery to remove the prostate and lymph nodes with the help of robotic arms that are controlled by the surgeon. ?Cryoablation. This is surgery to freeze and destroy cancer cells. Radiation treatment. Types of radiation treatment include: ?External beam radiation. This type aims beams of radiation from outside the body at the prostate to destroy cancerous cells. ?Brachytherapy. This type uses radioactive needles, seeds, wires, or tubes that are implanted into the prostate gland. Like external beam radiation, brachytherapy destroys cancerous cells. An advantage is that this type of radiation limits the damage to surrounding tissue and has fewer side effects. Chemotherapy. This treatment kills cancer cells or stops them from multiplying. It kills both cancer cells and normal cells. Targeted therapy. This treatment uses medicines to kill cancer cells without damaging normal cells. Hormone treatment. This treatment involves taking medicines that act on testosterone, one of the male hormones, by: ?Stopping your body from producing testosterone. ?Blocking testosterone from reaching cancer cells. Follow these instructions at home: Lifestyle Do not use any products that contain nicotine or tobacco. These products include cigarettes, chewing tobacco, and vaping devices, such as e-cigarettes. If you need help quitting, ask your health care provider. Eat a healthy diet. To do this: ?Eat foods that are high in fiber. These include beans, whole grains, and fresh fruits and vegetables. ?Limit foods that are high in fat and sugar. These include fried or sweet foods. Treatment for prostate cancer may affect sexual function. If you have a partner, continue to have intimate moments. This may include touching, holding, hugging, and caressing your partner. Get plenty of sleep. Consider joining a support group for men who have prostate cancer. Meeting with a support group may help you learn to manage the stress of having cancer. General instructions Take [id number] and prescription medicines only as told by your health care provider. If you have to go to the hospital, notify your cancer specialist (oncologist). Keep all follow-up visits. This is important. Where to find more information [employer]: www.cancer.org [employer]: www.cancer.net National Cancer [place]: www.cancer.gov Contact a health care provider if: You have new or increasing trouble urinating. You have new or increasing blood in your urine. You have new or increasing pain in your hips, back, or chest. Get help right away if: You have weakness or numbness in your legs. You cannot control urination or your bowel movements (incontinence). You have chills or a fever. Summary The prostate is a small gland that is involved in the production of semen. It is located below a man's bladder, in front of the rectum. Prostate cancer is the abnormal growth of cells in the prostate gland. Treatment for this condition depends on the stage of the cancer, your age, personal preferences, and your overall health. Talk with your health care provider about treatment options that are recommended for you. Consider joining a support group for men who have prostate cancer. Meeting with a support group may help you learn to manage the stress of having cancer. This information is not intended to replace advice given to you by your health care provider. Make sure you discuss any questions you have with your health care provider. Document Revised: 01/04/2022 Document Reviewed: 01/04/2022 [employer] Patient Education 2022 Fab. Follow Up Care 12/18/2022 13:44:52 With:YADY SALCIDO, Ozzy Velasquez, URL Address: [facility] [address], [place] [phone]- [phone] When:Within 3 Month(s) Comments:PSA (and possible Lupron inj) [facility] [place] 04-16-2023 Note Much improved with h olding of lasix, currently remains euvolemic without any s/s of fluid overload Activity tolerance has greatly improved [facility] 04-16-2023 Note Continue lovastatin [facility] 04-16-2023 Note Coronary artery dise ase is Stable without any concerning symptoms Continue GDMT- ASA, toprol, lovastatin continue risk factor modifications- heart healthy diet, regular exercise as tolerated and continue all medications. [facility] 04-16-2023 Note Patient here for 2 w squaxin follow up hypotension. He was started on midodrine and lasix was stopped. Denies LE edema and SOB. With his own BP machine, the reading in the office today was 166/109. Says he feels good. Labs weren't drawn yet. Review of Systems HENT: Positive for hearing loss. Hematologic/Lymphatic: Bruises/bleeds easily. Musculoskeletal: Positive for back pain, muscle weakness and myalgias. All other systems reviewed and are negative. [facility] 04-16-2023 Note [facility] CARDIOLOGY PROGR ESS NOTE HPI: Jose Ferreira is a 82 y.o. male here for f/U for hypotension, fatigue, lightheadedness. HPI Pt here for return f/U for hypotension with medication adjustments from last visit. He has not had labs drawn as requested per Felix ROA. States that his fatigue, lightheadedness and b/P have greatly improved. states that he has been much more active since last visit. He reports that he eats breakfast and then does his therapy and exercises this last week (20 walking laps in the house, strengthening) States b/p at home has been 130-140/80 Review of Systems Constitutional: Negative. Respiratory: Negative. Cardiovascular: Negative. Neurological: Negative. All other systems reviewed and are negative. Visit Vitals BP (!) 153/91 (BP Location: Left arm, Patient Position: Sitting) Pulse 104 Ht 1.829 m (6') Wt 84.4 kg (186 lb) SpO2 92% BMI 25.23 kg/m??? Smoking Status Never BSA 2.07 m??? Allergies Allergen Reactions Levofloxacin Other Caused severe ankle pain Amoxicillin-Pot Clavulanate Diarrhea and Other Severe diarrhea Pioglitazone Diarrhea and Other Stomach pain Medications: Current Outpatient Medications on File Prior to Visit Medication Sig Dispense Refill albuterol 1.25 mg/3 mL nebulizer solution Inhale 1.25 mg every 6 (six) hours if needed. ALPRAZolam (Xanax) 1 mg tablet Take 1 mg by mouth if needed in the morning, at noon, and at bedtime. aspirin 325 mg tablet Take 325 mg by mouth in the morning. cilostazol (Pletal) 50 mg tablet Take 50 mg by mouth in the morning and 50 mg in the evening. colesevelam (Welchol) 625 mg tablet Take 2 tablets (1,250 mg) by mouth with breakfast and with evening meal. 360 tablet 3 ferrous sulfate 325 (65 Fe) MG EC tablet Take 325 mg by mouth. insulin glargine (Lantus) 100 unit/mL (3 mL) pen Lantus Solostar U-100 Insulin 100 unit/mL (3 mL) subcutaneous pen insulin lispro (HumaLOG) 100 unit/mL injection Humalog KwikPen (U-100) Insulin 100 unit/mL subcutaneous Lokelma 5 gram packet lovastatin (Mevacor) 40 mg tablet Take 2 tablets (80 mg) by mouth at bedtime. 180 tablet 3 magnesium oxide (Mag-Ox) 400 mg (241.3 mg magnesium) tablet Take 400 mg by mouth in the morning and 400 mg in the evening. metFORMIN XR (Glucophage-XR) 500 mg 24 hr tablet Take 1,000 mg by mouth daily with evening meal. metoprolol succinate XL (Toprol-XL) 25 mg 24 hr tablet Take 1 tablet (25 mg) by mouth once daily as directed. Do not crush or chew. (Patient taking differently: Take 12.5 mg by mouth once daily as directed. Do not crush or chew.) 90 tablet 3 midodrine (Proamatine) 10 mg tablet Take 1 tablet (10 mg) by mouth with breakfast and with evening meal. 60 tablet 1 mirtazapine (Remeron) 45 mg tablet Take 45 mg by mouth at bedtime. omeprazole (PriLOSEC) [address] capsule omeprazole 40 mg capsule,delayed release [DISCONTINUED] furosemide (Lasix) 20 mg tablet Take 20 mg by mouth in the morning. No current facility-administered medications on file prior to visit. Physical Exam: Constitutional: Appearance: Normal appearance. Without apparent distress, chroncially ill. Ambulates with walker HENT: Head: Normocephalic and atraumatic. Nose: Nose normal. Mouth/Throat: Mouth: Mucous membranes are moist. Eyes: Extraocular Movements: Extraocular movements intact. Conjunctiva/sclera: Conjunctivae normal. Neck: Vascular: No JVD. Cardiovascular: Rate and Rhythm: Normal rate and regular rhythm. Pulses: Dorsalis pedis pulses are 3 on the right side and 3on the left side. Posterior tibial pulses are 3 on the right side and 3 on the left side. Heart sounds: Normal heart sounds, S1 normal and S2 normal. Pulmonary: Effort: Pulmonary effort is normal. Breath sounds: Normal breath sounds. Abdominal: General: Bowel sounds are normal. Palpations: Abdomen is soft. Musculoskeletal: General: Normal range of motion. Right lower leg: No edema. Left lower leg: No edema. Skin: General: Skin is warm and dry. Capillary Refill: Capillary refill takes less than 2 seconds. Neurological: General: No focal deficit present. Mental Status: alert and oriented to person, place, and time. Psychiatric: Mood and Affect: Mood normal. Behavior: Behavior normal. Thought Content: Thought content normal. Judgment: Judgment normal. Labs: Sent pt to lab after this visit to drawn previously ordered CBC and CMP Today reviewed- CBC stable Renal function stable- BUN 46, CR 1.65- this is typical for this pt and improved from December K+ 5.1 Liver function normal Last lab values have been reviewed CV Testing: ECHO 11/30/2022 Hyperdynamic ventricular systolic function, LVEF 70-75% No significant valvular dysfunction Normal right sided pressures No pericardial effusion Nuclear medicine stress test 02/07/2022 1. No acute or reversible ischemia 2. Dyskinesis of the apex of uncertain etiology. No abno (more content not included)... [facility] 04-04-2023 Note Patient here for 1 w squaxin follow up hypotension and midodrine increase to 10mg bid. BP log from home looks good. Still denies chest pain and lightheadedness. Review of Systems HENT: Positive for hearing loss. Cardiovascular: Positive for dyspnea on exertion and leg swelling. Hematologic/Lymphatic: Bruises/bleeds easily. Musculoskeletal: Positive for back pain, muscle weakness and myalgias. All other systems reviewed and are negative. [facility] 04-04-2023 Note Cardiology Clinic No te Subjective Jose Ferreira is a 82 y.o. year old male patient being seen in follow-up for a problem focused visit of hypotension. 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) Chronic systolic heart failure (CMS/HCC) Coronary atherosclerosis Diabetic ulcer of left heel associated with type 2 diabetes mellitus, with fat layer exposed (CMS/HCC) Dry gangrene (CMS/HCC) Foot osteomyelitis (CMS/HCC) Gastroesophageal reflux disease Gastrointestinal hemorrhage Glycosuria History of malignant neoplasm of prostate History of renal calculi Hyperlipidemia Hypertension Male urinary stress incontinence Onychomycosis Open wound Acute decompensated heart failure (CMS/HCC) Peritonitis (CMS/HCC) Psychiatric problem 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 He is currently NWB to [facility]. Patient needed to lay down during visit d/t significant upper back/neck pain. Patient was resting with his eyes closed during majority of the visit today. History obtained from his daughter and his . Family states that patient often sleeps all day. Known history of DEIRDRE that they did not pursue treatment for. He continues to have significant dyspnea on exertion with mild exertion. He has some lightheadedness if he stands too quickly. Denies CP, orthopnea, PND, LE edema, palpitations, syncope, bleeding issues. 10/31/2022 He is feeling better today since I last saw him. His back/neck pain have improved. We had referred him to pulmonary for his dyspnea. Dr. Cook started him on nebulizing treatments. His breathing is much improved. Unfortunately he developed a wound on the bottom of his left heel recently while at therapy and this has become infected with staph. He is currently taking PO antibiotics and following with wound care. He will be seeing vascular next week to assess if they can revascularize his leg. His daughter notes she thinks his leg swelling has worsened. Patient thinks swelling is okay. He denies any weight gain, orthopnea, dyspnea, PND. He denies c/o CP, dizziness/LH, palpitations, bleeding issues. He ambulates with a walker. 03/28/2023 He denies any changes since last seen except for that he has been having issues with low BP. His dimension specification inspector started him on midodrine. He has been taking midodrine intermittently but not routinely. BP at home running 90s/60s per his home health nurse. His BP is low in clinic today. He initially denied c/o dizziness but as the visit went on he started to feel a little light headed. He denies c/o CP, worsening dyspnea, palpitations, weight gain. His leg swelling has been stable. Update: He was seen last week by Albina Roach CNP and recommended follow-up in 1 week for reevaluation of BP after increasing his Midodrine to 10 mg BID. He has been increasing his fluid intake as recommended, drinking 1/2 gallon of water a day. He additionally has been monitoring his blood pressure twice a day with systolic readings as high as the 150s. His lowest home systolic BP reading has been 99. He endorses mild lightheadedness, denies chest pain or syncope. Review of Systems Cardiovascular: Positive for leg swelling. Negative for chest pain, dyspnea on exertion, irregular heartbeat, near-syncope, orthopnea, palpitations, paroxysmal nocturnal dyspnea and syncope. Objective Visit Vitals BP (!) 67/41 (BP Location: Left arm, Patient Position: Standing) Pulse 99 Ht 1.829 m (6') Wt 82.6 kg (182 lb) SpO2 96% BMI 24.68 kg/m??? Smoking Status Never BSA 2.05 m??? Physical Exam General: Awake, alert, NAD Pulm: Breath sounds clear to ascultation bilaterally with no wheeze, crackles or rhonchi Cards: Regular rate and rhythm, S1, S2. No S3 or S4 gallop. Murmur: none Abd: Soft, Nontender, physiologic bowel sounds are present Extr: Lower extremity edema: trace. Skin: warm, dry, well perfused Neuro: A&Ox3, No gross deficits Allergies Allergies Allergen Reactions Levofloxacin Other Caused severe ankle pain Amoxicillin-Pot Clavulanate Diarrhea and Other Severe diarrhea Pioglitazone Diarrhea and Other Stomach pain Medications Current Outpatient Medications: albuterol 1.25 mg/3 mL nebulizer solution, I (more content not included)... [facility] 03-28-2023 Note Cardiovascular Medic [facility] SUBJECTIVE Chief Complaint Patient presents with Atrial Fibrillation Coronary Artery Disease Congestive Heart Failure Jose Ferreira is a 82 y.o. male here for follow-up and to discuss the Watchman device. He is accompanied by his daughter, Ester. HPI 03/10/2022 He's had multiple foot surgeries since last seen. He is currently NWB to [facility]. Patient needed to lay down during visit d/t significant upper back/neck pain. Patient was resting with his eyes closed during majority of the visit today. History obtained from his daughter and his . Family states that patient often sleeps all day. Known history of DEIRDRE that they did not pursue treatment for. He continues to have significant dyspnea on exertion with mild exertion. He has some lightheadedness if he stands too quickly. Denies CP, orthopnea, PND, LE edema, palpitations, syncope, bleeding issues. 10/31/2022 He is feeling better today since I last saw him. His back/neck pain have improved. We had referred him to pulmonary for his dyspnea. Dr. Cook started him on nebulizing treatments. His breathing is much improved. Unfortunately he developed a wound on the bottom of his left heel recently while at therapy and this has become infected with staph. He is currently taking PO antibiotics and following with wound care. He will be seeing vascular next week to assess if they can revascularize his leg. His daughter notes she thinks his leg swelling has worsened. Patient thinks swelling is okay. He denies any weight gain, orthopnea, dyspnea, PND. He denies c/o CP, dizziness/LH, palpitations, bleeding issues. He ambulates with a walker. 03/28/2023 He denies any changes since last seen except for that he has been having issues with low BP. His dimension specification inspector started him on midodrine. He has been taking midodrine intermittently but not routinely. BP at home running 90s/60s per his home health nurse. His BP is low in clinic today. He initially denied c/o dizziness but as the visit went on he started to feel a little light headed. He denies c/o CP, worsening dyspnea, palpitations, weight gain. His leg swelling has been stable. 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 ([facility]) Chronic systolic heart failure ([facility]) Coronary atherosclerosis Diabetic ulcer of left heel associated with type 2 diabetes mellitus, with fat layer exposed ([facility]) Dry gangrene ([facility]) Foot osteomyelitis ([facility]) Gastroesophageal reflux disease Gastrointestinal hemorrhage Glycosuria History of malignant neoplasm of prostate History of renal calculi Hyperlipidemia Hypertension Male urinary stress incontinence Onychomycosis Open wound Acute decompensated heart failure ([facility]) Peritonitis ([facility]) Psychiatric problem 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 ([facility]) Type 2 diabetes mellitus with diabetic peripheral angiopathy and gangrene, with long-term current use of insulin ([facility]) Type 2 diabetes mellitus, uncontrolled, with neuropathy Stage 3b chronic kidney disease ([facility]) Past Medical History: Diagnosis Date Atrial fibrillation ([facility]/HCC) CHF (congestive heart failure) ([facility]) Coronary artery disease Diabetes mellitus ([facility]) GI bleed Hyperlipidemia Hypertension Second degree AV block Sinus tachycardia Family History Problem Relation Name Age of Onset Cancer Father Alcohol abuse Father Social History Tobacco Use Smoking status: Never Smokeless tobacco: Never Substance Use Topics Alcohol use: Not Currently Allergies Allergen Reactions Levofloxacin Other Caused severe ankle pain Amoxicillin-Pot Clavulanate Diarrhea and Other Severe diarrhea Pioglitazone Diarrhea and Other Stomach pain ROS HENT: Positive for hearing loss. Cardiovascular: Positive for dyspnea on exertion and leg swelling. Hematologic/Lymphatic: Bruises/bleeds easily. Musculoskeletal: Positive for back pain, muscle weakness and myalgias. All other systems reviewed and are negative. OBJECTIVE Visit Vitals BP 82/56 (BP Location: Left arm, Patient Position: Sitting) Pulse 85 Ht 1.829 m (6') Wt 80.7 kg (178 lb) SpO2 99% BMI 24.14 kg/m??? Smoking Status Never BSA 2.02 m??? Medications: Current Outpatient Medications: albuterol 1.25 mg/3 mL nebulizer solution, Inhale 1.25 mg every 6 (six) hours if needed., Disp: , Rfl: ALPRAZolam (Xanax) 1 mg tablet, Take 1 mg by mouth if needed in the morning, at noon, and at bedtime., Disp: , Rfl: aspirin 325 mg tablet, Take 325 mg by mouth in the morning., Disp: , Rfl: cilostazol (Pletal) 50 mg tablet, Take 50 mg by mouth in the morning and 50 mg in the evening., Disp: , Rfl: colesevelam (Welchol) 625 mg (more content not included)... [facility] 03-28-2023 Note Patient here for 3 m o follow up PAF and CAD. His device was interrogated in the office yesterday. Daughter in law states nephrology started him on midodrine for hypotension. Had SURINDER's last week at [facility] but report still pending. Review of Systems HENT: Positive for hearing loss. Cardiovascular: Positive for dyspnea on exertion and leg swelling. Hematologic/Lymphatic: Bruises/bleeds easily. Musculoskeletal: Positive for back pain, muscle weakness and myalgias. All other systems reviewed and are negative. [facility] 01-01-2023 Note [place] [facility] - [facility] Subjective Jose Ferreira is a 82 y.o. year old male patient being seen to discuss the Watchman device. He has history of GI bleed. Daughter in law states his BP has been low lately and he does get lightheaded at times. His superficial skin infection has cleared up. Daughter in law states the small wounds are healing. Per vascular surgery, they're ok with him stopping Pletal, but would like him to take a replacement. 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) Chronic systolic heart failure (CMS/HCC) Coronary atherosclerosis Diabetic ulcer of left heel associated with type 2 diabetes mellitus, with fat layer exposed (CMS/HCC) Dry gangrene (CMS/HCC) Foot osteomyelitis (CMS/HCC) Gastroesophageal reflux disease Gastrointestinal hemorrhage Glycosuria History of malignant neoplasm of prostate History of renal calculi Hyperlipidemia Hypertension Male urinary stress incontinence Onychomycosis Open wound Acute decompensated heart failure (CMS/HCC) Peritonitis (CMS/HCC) Psychiatric problem 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 Past medical history includes atrial fibrillation, CAD and CHF. Coronary Artery Disease Symptoms include leg swelling, muscle weakness and shortness of breath. His past medical history is significant for CHF. Congestive Heart Failure Associated symptoms include muscle weakness and shortness of breath. His past medical history is significant for CAD. Review of Systems Cardiovascular: Positive for dyspnea on exertion and leg swelling. Respiratory: Positive for cough and shortness of breath. Hematologic/Lymphatic: Bruises/bleeds easily. Musculoskeletal: Positive for muscle weakness. Neurological: Positive for light-headedness. All other systems reviewed and are negative. Objective Visit Vitals BP 105/68 (BP Location: Left arm, Patient Position: Sitting) Pulse 98 Ht 1.829 m (6') Wt 82.1 kg (181 lb) SpO2 94% BMI 24.55 kg/m??? Smoking Status Never BSA 2.04 m??? Physical Exam Constitutional: Appearance: He is well-developed. He is ill-appearing. HENT: Head: Normocephalic and atraumatic. Nose: Nose normal. Eyes: General: No scleral icterus. Pupils: Pupils are equal, round, and reactive to light. Neck: Thyroid: No thyromegaly. Vascular: No JVD. Cardiovascular: Rate and Rhythm: Normal rate and regular rhythm. Pulses: Radial pulses are 2+ on the right side and 2+ on the left side. Heart sounds: Normal heart sounds. No murmur heard. No friction rub. No gallop. Pulmonary: Effort: Pulmonary effort is normal. No respiratory distress. Breath sounds: Normal breath sounds. No wheezing or rales. Chest: Chest wall: No tenderness. Abdominal: General: Bowel sounds are normal. There is no distension. Palpations: Abdomen is soft. Tenderness: There is no abdominal tenderness. Musculoskeletal: General: No swelling. Cervical back: Neck supple. Comments: Uses a walker to help with ambulation Skin: General: Skin is warm and dry. Findings: Bruising present. Neurological: General: No focal deficit present. Mental Status: He is alert and oriented to person, place, and time. Psychiatric: Mood and Affect: Mood normal. Behavior: Behavior is cooperative. Judgment: Judgment normal. Allergies Allergies Allergen Reactions Levofloxacin Other Caused severe ankle pain Amoxicillin-Pot Clavulanate Diarrhea and Other Severe diarrhea Pioglitazone Diarrhea and Other Stomach pain Medications Current Outpatient Medications: albuterol 1.25 mg/3 mL nebulizer solution, Inhale 1.25 mg every 6 (six) hours if needed., Disp: , Rfl: ALPRAZolam (Xanax) 1 mg tablet, Take 1 mg by mouth if needed in the morning, at noon, and at bedtime., Disp: , Rfl: aspirin 325 mg tablet, Take 325 mg by mouth in the morning., Disp: , Rfl: cilostazol (Pletal) 50 mg tablet, Take 50 mg by mouth in the morning and 50 mg in the evening., Disp: , Rfl: ferrous sulfate 325 (65 Fe) MG EC tablet, Take 325 mg by mouth., Disp: , Rfl: insulin glargine (Lantus) 100 unit/mL (3 mL) pen, Lantus Solostar U-100 Insulin 100 unit/mL (3 mL) subcutaneous pen, Disp: , Rfl: insulin lispro (HumaL (more content not included)... [facility] 10-31-2022 Note Patient here to jonny [employer] Watchman device implant. Seeing wound care for his foot again. Daughter in law states he's been having a lot of edema in his feet and ankles. They cut off his salt intake and this has not helped. He sees [facility] vascular surgery, and has apt next week per daughter in law. Denies chest pain and SOB. Says sometimes at home his SPB gets a little high but isn't able to tell me the values. He does say his takes his BP before morning meds. Review of Systems HENT: Positive for hearing loss. Cardiovascular: Positive for dyspnea on exertion and leg swelling. Hematologic/Lymphatic: Bruises/bleeds easily. Musculoskeletal: Positive for back pain, muscle weakness and myalgias. All other systems reviewed and are negative. [facility] 10-31-2022 Note Cardiovascular Medic [facility] SUBJECTIVE Chief Complaint Patient presents with Atrial Fibrillation Congestive Heart Failure Hypertension Jose Ferreira is a 82 y.o. male here for follow-up and to discuss the Watchman device. He is accompanied by his daughter, Ester. HPI 03/10/2022 He's had multiple foot surgeries since last seen. He is currently NWB to [facility]. Patient needed to lay down during visit d/t significant upper back/neck pain. Patient was resting with his eyes closed during majority of the visit today. History obtained from his daughter and his . Family states that patient often sleeps all day. Known history of DEIRDRE that they did not pursue treatment for. He continues to have significant dyspnea on exertion with mild exertion. He has some lightheadedness if he stands too quickly. Denies CP, orthopnea, PND, LE edema, palpitations, syncope, bleeding issues. 10/31/2022 He is feeling better today since I last saw him. His back/neck pain have improved. We had referred him to pulmonary for his dyspnea. Dr. Cook started him on nebulizing treatments. His breathing is much improved. Unfortunately he developed a wound on the bottom of his left heel recently while at therapy and this has become infected with staph. He is currently taking PO antibiotics and following with wound care. He will be seeing vascular next week to assess if they can revascularize his leg. His daughter notes she thinks his leg swelling has worsened. Patient thinks swelling is okay. He denies any weight gain, orthopnea, dyspnea, PND. He denies c/o CP, dizziness/LH, palpitations, bleeding issues. He ambulates with a walker. 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 ([facility]) Chronic systolic heart failure ([facility]) Coronary atherosclerosis Diabetic ulcer of left heel associated with type 2 diabetes mellitus, with fat layer exposed ([facility]) Dry gangrene ([facility]) Foot osteomyelitis ([facility]) Gastroesophageal reflux disease Gastrointestinal hemorrhage Glycosuria History of malignant neoplasm of prostate History of renal calculi Hyperlipidemia Hypertension Male urinary stress incontinence Onychomycosis Open wound Acute decompensated heart failure ([facility]) Peritonitis ([facility]) Psychiatric problem 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 ([facility]) Type 2 diabetes mellitus with diabetic peripheral angiopathy and gangrene, with long-term current use of insulin ([facility] [facility]) Type 2 diabetes mellitus, uncontrolled, with neuropathy Past Medical History: Diagnosis Date Atrial fibrillation ([facility]) CHF (congestive heart failure) ([facility]) Coronary artery disease Diabetes mellitus ([facility]) GI bleed Hypertension Second degree AV block Sinus tachycardia Family History Problem Relation Name Age of Onset Cancer Father Alcohol abuse Father Social History Tobacco Use Smoking status: Never Smokeless tobacco: Never Substance Use Topics Alcohol use: Not Currently Allergies Allergen Reactions Levofloxacin Other Caused severe ankle pain Amoxicillin-Pot Clavulanate Diarrhea and Other Severe diarrhea Pioglitazone Diarrhea and Other Stomach pain ROS HENT: Positive for hearing loss. Cardiovascular: Positive for dyspnea on exertion and leg swelling. Hematologic/Lymphatic: Bruises/bleeds easily. Musculoskeletal: Positive for back pain, muscle weakness and myalgias. All other systems reviewed and are negative. OBJECTIVE Visit Vitals BP 121/76 (BP Location: Left arm, Patient Position: Sitting) Pulse 88 Ht 1.829 m (6') Wt 81.6 kg (180 lb) SpO2 97% BMI 24.41 kg/m??? Smoking Status Never BSA 2.04 m??? Medications: Current Outpatient Medications: ALPRAZolam (Xanax) 1 mg tablet, Take 1 mg by mouth if needed in the morning, at noon, and at bedtime., Disp: , Rfl: aspirin 325 mg tablet, Take 325 mg by mouth in the morning., Disp: , Rfl: cilostazol (Pletal) 50 mg tablet, Take 50 mg by mouth in the morning and 50 mg in the evening., Disp: , Rfl: colesevelam (Welchol) 625 mg tablet, colesevelam 625 mg tablet, Disp: , Rfl: ferrous sulfate 325 (65 Fe) MG EC tablet, Take 325 mg by mouth., Disp: , Rfl: furosemide (Lasix) 40 mg tablet, Take 40 mg by mouth in the morning., Disp: , Rfl: insulin glargine (Lantus) 100 unit/mL (3 mL) pen, Lantus Solostar U-100 Insulin 100 unit/mL (3 mL) subcutaneous pen, Disp: , Rfl: insulin lispro (HumaLOG) 100 unit/mL injection, Humalog KwikPen (U-100) Insulin 100 unit/mL subcutaneous, Disp: , Rfl: lovastatin (Mevacor) 40 mg tablet, Take 80 mg by mouth at bedtime., Disp: , Rfl: magnesium oxide (Mag-Ox) 400 mg (241.3 mg magnesium) tablet, Take 400 mg by mouth in the morning and 400 mg in the evening., Di (more content not included)... [facility] 12-05-2021 Note MR#: [id number] [facility] Pt. Name: Jose Ferreira Admitted: 12/02/2021 Discharged: 12/05/2021 Date of : 1940 Physician: Margarita Avilez MD DISCHARGE SUMMARY PRIMARY DIAGNOSES: 1. Atrial fibrillation with RVR, resolved. 2. Bilateral lower extremity wounds and ulcers. Vascular Surgery following along. 3. Electrolyte imbalance, repleted. 4. Elevated AST, ALT. Daptomycin has been discontinued by ID. 5. Acute kidney injury, resolved. 6. Hyperlipidemia. 7. History of MRSA of the right ID team. Stop daptomycin. 8. History of prostate cancer. 9. Type 2 diabetes mellitus. 10. History of duodenal perforation and with the massive GI bleed recently. 11. History of gastric cancer. 12. Anxiety. CONSULTATION: 1. Cardiology. 2. Vascular Surgery. 3. Infectious Disease. HOSPITAL COURSE: The patient is an 81-year-old male, who initially presented to [facility] with complaint of chest pain and shortness of breath. Initially, chest pain was intermittent and midsternal and sharp. It was noted during his stay at [facility] that he also having intermittent runs of ventricular tachycardia with potential atrial fibrillation as well. Pacemaker was interrogated at the [facility] facility. EKG from [facility] noted atrial fibrillation with RVR and the patient was started on amiodarone infusion with amiodarone bolus prior to the infusion. On arrival, the patient no longer on amiodarone infusion. [facility] showed atrial fibrillation with RVR with right bundle branch block, which was noted on previous EKG. At that time, the patient was denying any shortness of breath, any chest pain, fever, chills. [facility] facility lab included creatinine was 2.4. WBCs of 14,000. Troponin was negative. The patient was initially started on heparin infusion. Cardiology team evaluated the patient, recommend against any anticoagulation due to recent history of GI bleed. Despite having elevated CHADS-VASc, the patient was initially started on aspirin 325 daily that was switched to 81 mg daily per Cardiology recommendation. Echocardiogram showed improved in ejection fraction to 50%. Cardiology team recommend to start the patient on 2.5 mg daily and Aldactone 25 mg daily and as the blood pressure tolerated. The patient's symptoms significantly improved. Hemoglobin was continuously stable during the hospitalization. Vascular Surgery evaluated the patient for regarding bilateral lower extremity wound and history of osteomyelitis. With previous history of osteomyelitis, the patient was discharged home on IV daptomycin. The patient was found to have elevated liver enzyme at time of admission. ID team evaluate the patient, recommended to stop daptomycin and the daptomycin was discontinued. The patient was started back on atorvastatin. PHYSICAL EXAMINATION: VITAL SIGNS: At time of discharge, the patient's vitals stable. GENERAL: The patient alert, oriented x4. No visible distress noted. HEAD AND NECK: Atraumatic, normocephalic. EYES: EOMI, PERRLA. CHEST: No sign of labored breathing. MUSCULOSKELETAL: Intact. NEUROLOGIC: Nonfocal. PSYCH: Mood stable. DISCHARGE MEDICATIONS: As per reconcile in the computer. DISCHARGE DISPOSITION: The patient is going home in stable condition. TOTAL TIME: 45 minutes evaluating the patient, reviewed chart, coordinating care with nursing staff. Electronically Signed by: Margarita Avilez MD 12/08/2021 11:19 A ____ Margarita Avilez MD Date Dict: 12/05/2021/01:51 P/Margarita Avilez MD Date Trans: 12/05/2021 02:41 P/mmo [id number] cc: Farzad Dodson M.D. [address], [facility] [id number] Elyse Denson M.D. Heart Failure/ Transplant Mailstop [id number] [facility] [id number] [facility] Evaluation + Plan note No data available for this section [facility] Evaluation + Plan note Future Appointments Appointment Date:06/18/2023 11:15:00 AM Scheduled Provider:Ozzy CONTEH MD Location:[facility] Appointment Type:URO Office Visit [facility] Evaluation + Plan note Future Appointments Appointment Date:09/24/2023 10:45:00 AM Scheduled Provider:Ozzy CONTEH MD Location:[facility] Appointment Type:URO Office Visit Diagnostic Tests PendingPSA Total 06/18/23 [facility] Evaluation + Plan note Future Appointments Appointment Date:09/24/2023 10:45:00 AM Scheduled Provider:Ozzy CONTEH MD Location:[facility] Appointment Type:URO Office Visit [facility] Evaluation + Plan note Future Appointments Appointment Date:10/19/2023 10:30:00 AM Scheduled Provider: Location:[facility] Appointment Type:URO Nurse Visit [facility] Discharge instructions No data available for this section [facility] Progress note No data available for this section [facility] Summary Purpose Family History No Family History Records FoundNo Family History Records FoundNo Family History Records FoundNo Family History Records Found No data available for this section No Family History Records Found No data available for this section No data available for this section No Family History Records FoundNo Family History Records FoundNo Family History Records Found Advance Directives No Advanced Directives Records FoundNo Advanced Directives Records FoundNo Advanced Directives Records FoundNo Advanced Directives Records FoundNo Advanced Directives Records FoundNo Advanced Directives Records FoundNo Advanced Directives Records FoundNo Advanced Directives Records Found Additional Source Comments (unrecognized sect ion and content) No Status Records FoundNo Status Records FoundNo Status Records FoundNo Status Records FoundNo Status Records FoundNo Status Records FoundNo Status Records FoundNo Status Records Found INFORMATION SOURCE (unrecogn ized section and content) DATE CREATED AUTHOR 04/23/2019 [facility] DATE CREATED AUTHOR AUTHOR'S ORGANIZ ATION 10/21/2021 [facility] DATE CREATED AUTHOR AUTHOR'S ORGANIZ ATION 02/28/2022 [facility] DATE CREATED AUTHOR AUTHOR'S ORGANIZ ATION 02/16/2023 [facility] DATE CREATED AUTHOR AUTHOR'S ORGANIZ ATION 08/31/2023 [facility] DATE CREATED AUTHOR AUTHOR'S ORGANIZ ATION 09/26/2023 [facility] DATE CREATED AUTHOR AUTHOR'S ORGANIZ ATION 09/28/2023 [facility] DATE CREATED AUTHOR AUTHOR'S ORGANIZ ATION 09/30/2023 [facility] Team (unrecognized sect ion and content) Personnel Name: Farzad Dodson MD Address: [address] [place] [address] Personnel Name: Farzad Dodson MD Address: Address: [address] [place] [address] Personnel Name: Farzad Dodson MD Address: Address: [address] [place] [address] Personnel Name: Farzad Dodson MD Address: Address: [address] [place] [address] [place] [id number]- Personnel Name: Farzad Dodson MD Address: Address: [address] [place] [address] [place] [address]- Personnel Name: Farzad Dodson MD Address: Address: [address] [place] [address]- FOR RECORDS PERTAINING TO PATIENTS WHO ARE OR HAVE BEEN ENROLLED IN A CHEMICAL DEPENDENCY/SUBSTANCEABUSE PROGRAM, SOME INFORMATION MAY BE OMITTED. This clinical summary was aggregated from multiple sources. Caution should be exercised in using it in the provision of clinical care. This summary normalizes information from multiple sources, and as a consequence, information in this document may materially change the coding, format and clinical context of patient data. In addition, data may be omitted in some cases. CLINICAL DECISIONS SHOULD BE BASED ON THE PRIMARY CLINICAL RECORDS. [facility]. provides no warranty or guarantee of the accuracy or completeness of information in this document.
[2023-10-10 10:31] LABS: Glucometer 183 mg/dL (74-106)
[2023-10-10] MEDS: LACTATED RINGER'S SOLUTION 1,000 ML 1000 ML IV ×2 (10:32→10:52)
[2023-10-10 10:44] LABS: Bilirubin Urine NEGATIVE (NEGATIVE); Blood Urine LARGE (NEGATIVE); Clarity Urine CLOUDY (CLEAR); Color Urine YELLOW (YELLOW); Glucose Urine UA NEGATIVE (NEGATIVE); Ketones Urine TRACE mg/dL (NEGATIVE); Leukocyte Esterase Urine SMALL (NEGATIVE); Nitrite Urine NEGATIVE (NEGATIVE); Protein Urine 30 mg/dL (NEG/TRACE); Specific Gravity Urine 1.025 (1.005-1.025); Urobilinogen Urine 0.2 EU/dL (0.2-1.0); pH Urine 5.5 (5.0-9.0)
[2023-10-10 10:52] LABS: Basophils Percent Auto 0.1 % (0.2-2.0); Hematocrit 35.8 % (42.0-54.0); Hemoglobin 11.4 g/dL (14.0-18.0); Immature Granulocytes Abs Auto 0.05 10^3/uL (0.00-0.03); Immature Granulocytes Pct Auto 0.5 % (0.0-0.5); Lymphocytes Absolute Auto 0.9 10^3/uL (1.2-3.8); Mean Corpuscular HGB Conc 31.8 g/dL (29.9-35.2); Mean Corpuscular Hemoglobin 31.4 pg (25.9-34.0); Mean Corpuscular Volume 98.6 fL (80.0-94.0); Mean Platelet Volume 11.2 fL (9.5-13.5); Monocytes Absolute Auto 0.3 10^3/uL (0.3-0.8); Monocytes Percent Auto 3.3 % (1.7-12.0); Neutrophils Absolute Auto 8.7 10^3/uL (1.4-6.5); Neutrophils Percent Auto 87.1 % (43.0-75.0); Platelet Count 185 10^3/uL (150-450); Red Blood Count 3.63 10^6/uL (4.70-6.10); Red Cell Distribution Width 13.6 % (11.0-15.0); White Blood Count 9.9 10^3/uL (4.0-11.0)
[2023-10-10 10:55] LABS: Amorphous Sediment Urine FEW; Bacteria Urine LARGE #/HPF (NONE SEEN); Cast Seen? NONE SEEN #/LPF (NONE SEEN); Crystals Seen? Seen #/HPF (None Seen); Mucus Urine NONE SEEN (NONE SEEN); Squamous Epithelial Cell Urine RARE #/LPF (NONE/RARE)
[2023-10-10 10:58] LABS: ABG PCO2 39.6 mmHg (35.0-45.0); Allen Test POS (POSITIVE); Base Excess ABG -3.6 mmol/L (-2.0-2.0); Oxygen Saturation ABG 96.9 %; PO2 ABG 82.8 mmHg (80.0-100.0); pH ABG 7.353 (7.350-7.450)
--- NOTE | 2023-10-10 10:58 | RESP.RT ---
patient was on NRBM, placed on 6 LPM NC along with the aerogen at 5 LPM for breathing treatment
[2023-10-10 10:59] LABS: Fractionated Inspired Oxygen 100 %; Liters per Minute 15; O2 Mode NONREBREATHER MASK
[2023-10-10 10:59] LABS: Lactate/Lactic Acid 1.6 mmol/L (0.4-2.0)
[2023-10-10] MEDS: IPRATROPIUM/ALBUTEROL SULFATE 3 ML AMPUL.NEB 6 ML IH (11:01)
[2023-10-10 11:05] LABS: Troponin I High Sensitivity 17.1 pg/mL (4.0-76.1)
[2023-10-10 11:06] LABS: Alanine Aminotransferase 13 U/L (16-63); Albumin Globulin Ratio 0.5; Alkaline Phosphatase 51 U/L (46-116); Anion Gap 16.1; Aspartate Amino Transferase 14 U/L (15-37); BUN Creatinine Ratio 23.2; Bilirubin Total 0.3 mg/dL (0.2-1.0); Calcium 8.8 mg/dL (8.5-10.1); Carbon Dioxide 23.9 mmol/L (21.0-32.0); Chloride 104 mmol/L (98-107); Estimated GFR (African America 22 (>=60); Estimated GFR (Non-African Ame 18 (>=60); Globulin 4.1 g/dL; Glucose 176 mg/dL (74-106); Sodium 139 mmol/L (136-145); Total Protein 6.1 g/dL (6.4-8.2)
[2023-10-10 11:08] LABS: INR 1.03; Prothrombin Time 10.9 sec (9.0-11.6)
[2023-10-10 11:31] LABS: PROCALCITONIN 2.95 ng/mL (0.00-0.50)
[2023-10-10] MEDS: PIPERACILLIN SODIUM/TAZOBACTAM 4.5 GM in 0.9 % SODIUM CHLORIDE 50 ML IV (12:30)
[2023-10-10] MEDS: NOREPINEPHRINE BITARTRATE 4 MG in DEXTROSE 5 % IN WATER 250 ML 30.48 MG IV (12:37)
--- NOTE | 2023-10-10 12:40 | PC.NURSE ---
PT BP LOWERING AT THIS TIME, MANUAL TAKEN WITH SYSTOLIC 78. RT AT BEDSIDE PLACING PT ON VAPOTHERM WELL. PT REMAINS ALERT AND ORIENTED -- STATES HE DOESN'T FEEL SHORT OF BREATH. SPO2 87-90% ON VAPOTHERM AT THIS TIME (60% SETTING). DR RAINES AT BEDSIDE. LEVOPHED STARTED PER DR ORDER. VS RUNNING EVERY 5 MINS.
[2023-10-10] MEDS: LINEZOLID IN DEXTROSE 5% 600 MG/300 ML PIGGYBACK 300 MG IV (13:08)
--- NOTE | 2023-10-10 13:28 | CA_ITS ---
Patient Name: RALPH GARG MR#: [id number] : 1940 Exam Date: 10/10/2023 Ordering Doctor: DR FARZAD DODSON . ECHOCARDIOGRAM REPORT PROCEDURE: CA ECHO DOPPLER COMPLETE INDICATIONS: Dyspnea COMPARISON: None. DESCRIPTION: COMPLETE ECHOCARDIOGRAM Real-time transthoracic echocardiography with 2D, M-mode, spectral and color flow Doppler performed. QUALITY: Technical quality was limited due to patient condition. LEFT VENTRICLE: Small chamber size. Thickened septal wall. Global left ventricular systolic function is normal. LV EF: Visual estimation of left ventricular ejection fraction is 70-75%. DIASTOLIC: ATRIAL SEPTUM: LEFT ATRIUM: Moderate dilatation. RIGHT ATRIUM: Mild dilatation. RIGHT VENTRICLE: Moderate dilatation. Normal right ventricular systolic function. TRICUSPID VALVE: Normal mobility and thickness. No stenosis with Mild pulmonary hypertension. RVSP 42 mmHg MITRAL VALVE: Normal mobility and thickness. No evidence of mitral valve stenosis. There is no mitral annular calcification. Trivial mitral regurgitation. AORTIC VALVE: Normal trileaflet appearance. Thickened aortic valve. Normal leaflet mobility. No evidence of aortic valve stenosis. No aortic regurgitation. AORTIC ROOT: Normal diameter and appearance. PULMONIC VALVE: Normal thickness and mobility. No stenosis. Trivial regurgitation. PERICARDIUM: No evidence of pericardial effusion. IVC: Collapses with inspirations. Normal size. PLEURA: CONCLUSION: 1. The left ventricular cavity appears small and underfilled. Hyperdynamic ventricular systolic function. LVEF is 70 to 75%. 2. Moderately dilated right ventricle with normal systolic function. 3. Mild to moderate biatrial dilatation. 4. No significant valvular dysfunction. 5. Mildly elevated right-sided pressures. 6. No pericardial effusion. 7. The patient is tachycardic during the exam. Adult Echocardiography Procedure Report Left Ventricle LVEDD (3.7 - 5.6 cm): 3.42 cm LVESD (2.2 - 4.0 cm): 2.31 cm LVIVS thickness (0.6 - 1.2 cm): 1.62 cm LVPW thickness (0.5 - 1.0 cm): 1.18 cm LVOT Max Gradient: 3 mm[Hg] Peak Velocity (LVOT): 87.20 cm/s Mean Velocity (LVOT): 55.30 cm/s LVOT Diameter 1.90 cm Left Ventricular Ejection Fraction: 70-75 % Left Atrium LA Volume Index (2D A2C): 35233 mm3 Left Atrium Systolic Dimension: 2.40 cm Mitral Valve MV E to A Ratio: 0.80 Mitral Valve A-Wave Peak Velocity: 64.20 cm/s Mitral Valve E-Wave Peak Velocity: 54.30 cm/s Right Ventricle Aorta AO Root Diam: 3.50 cm Aortic Valve AoV Area (Peak Anoop): 1.93 cm2 AoV Area (VTI): 2.23 cm2 Peak Velocity(Antegrade Flow): 128.00 cm/s Peak Gradient(Antegrade Flow): 7 mm[Hg] Mean Velocity(Antegrade Flow): 82.80 cm/s Mean Gradient(Antegrade Flow): 3 mm[Hg] Velocity Time Integral: 20.50 cm Tricuspid Valve Peak Velocity (Regurgitant Flow): 312.00 cm/s Peak Velocity: 62.70 cm/s Pulmonic Valve Peak Velocity: 132.00 cm/s, 106.00 cm/s Peak Gradient: 6 mm[Hg] Right Atrium Dictated by: Russell Denson M.D. on 10/10/2023 at 15:59 Approved by: Russell Denson M.D. on 10/10/2023 at 16:03
[2023-10-10 14:08] LABS: Troponin I High Sensitivity 22.3 pg/mL (4.0-76.1)
[2023-10-10 15:15] LABS: SARS-CoV-2 Ag NEGATIVE (NEGATIVE)
[2023-10-10] MEDS: PANTOPRAZOLE SODIUM 40 MG VIAL IV (15:25)
[2023-10-10] MEDS: LACTATED RINGER'S SOLUTION 1,000 ML 100 ML IV (15:25)
[2023-10-10] MEDS: ALBUMIN HUMAN 25 GM/100 ML PREMIX IV ×2 (15:25→16:12)
[2023-10-10] MEDS: DEXAMETHASONE SOD PHOS 10 MG/ML VIAL IV (16:12)
--- NOTE | 2023-10-10 16:55 | P.PLCN_ITS ---
History of Present Illness History of Present Illness Consult date: 10/10/23 Requesting physician: Seb Walton Reason for consult: hypoxemia Chief complaint: UTI, CONFUSION, COVID+ Narrative: 83yo male presents to [facility] with weakness. He has had several admissions in the past 2 months after having a suprapubic catheter placed. Developed recurrent Pseudomonas infection vs. colonization. Upon arrival today. he was found to be hypoxic and hypotensive. He was placed on a NRB and then Vapotherm. He did not respond to fluid bolus and norepinephrine was started. He was transferred to the ICU and a right PICC was placed. Norepinephrine was able to be weaned off with borderline MAP ~68mmHg. He had COVID-19 10 days ago, but tested negative today. CTA shows infiltrates in dependent portions of lung - the patient denies any choking or aspiration, or any vomiting. I personally see the patient outpatient for mild asthm - he was doing well at his last appointment on 06/11/2023. Review of Systems ROS Status of ROS 10 or more systems reviewed and unremark able except as noted in history and below Constitutional Reports: chills, fatigue and malaise Respiratory Reports: shortness of breath and cough Gastrointestinal Reports: nausea; Denies: vomiting or difficulty swallowing [facility] Medical History (Updated 10/10/23 @ 17:03 by Joey Cook DO) Dehydration ?E86.0 - Dehydration (ICD-10) Adult failure to thrive ?R62.7 - Adult failure to thrive (ICD-10) Acute UTI ?N39.0 - Urinary tract infection, site not specified (ICD-10) Hydroureteronephrosis ?N13.30 - Unspecified hydronephrosis (ICD-10) Acute renal injury ?N17.9 - Acute kidney failure, unspecified (ICD-10) History of blood transfusion ?Z92.89 - Personal history of other medical treatment (ICD-10) Anemia ?D64.9 - Anemia, unspecified (ICD-10) Arthritis ?M19.90 - Unspecified osteoarthritis, unspecified site (ICD-10) Asthma ?J45.909 - Unspecified asthma, uncomplicated (ICD-10) Pneumonia ?J18.9 - Pneumonia, unspecified organism (ICD-10) Tremor ?R25.1 - Tremor, unspecified (ICD-10) Amputation toe ?S98.139A - Complete traumatic amputation of one unspecified lesser toe, initial encounter (ICD-10) Abnormal TRUS (transrectal ultrasound), prostate ?R93.89 - Abnormal findings on diagnostic imaging of other specified body structures (ICD-10) Elevated PSA ?R97.20 - Elevated prostate specific antigen [PSA] (ICD-10) Urinary tract infection ?N39.0 - Urinary tract infection, site not specified (ICD-10) Ulcer of gastric fundus ?K25.9 - Gastric ulcer, unspecified as acute or chronic, without hemorrhage or perforation (ICD-10) Seasonal allergic rhinitis ?J30.2 - Other seasonal allergic rhinitis (ICD-10) Kidney stones ?N20.0 - Calculus of kidney (ICD-10) Glucosuria ?R81 - Glycosuria (ICD-10) H/O esophageal reflux ?Z87.19 - Personal history of other diseases of the digestive system (ICD-10) Diabetes ?E11.9 - Type 2 diabetes mellitus without complications (ICD-10) Atrial fibrillation ?I48.91 - Unspecified atrial fibrillation (ICD-10) Mixed incontinence ?N39.46 - Mixed incontinence (ICD-10) Prostate cancer ?C61 - Malignant neoplasm of prostate (ICD-10) Pacemaker ?Z95.0 - Presence of cardiac pacemaker (ICD-10) Surgical History (Updated 08/30/23 @ 11:53 by Gracie Cabral) History of esophagogastroduodenoscopy ?Z98.890 - Other specified postprocedural states (ICD-10) History of colonoscopy ?Z98.890 - Other specified postprocedural states (ICD-10) History of arthroscopy of knee ?Z98.890 - Other specified postprocedural states (ICD-10) History of ear surgery ?Z98.890 - Other specified postprocedural states (ICD-10) H/O hand surgery ?Z98.890 - Other specified postprocedural states (ICD-10) H/O wrist surgery ?Z98.890 - Other specified postprocedural states (ICD-10) H/O cataract extraction ?Z98.49 - Cataract extraction status, unspecified eye (ICD-10) H/O prostate biopsy ?Z98.890 - Other specified postprocedural states (ICD-10) H/O lithotripsy ?Z98.890 - Other specified postprocedural states (ICD-10) H/O radical prostatectomy ?Z90.79 - Acquired absence of other genital organ(s) (ICD-10) Family History (Updated 08/21/23 @ 10:37 by Le Mata NP) Other Alcoholism Family history of lung cancer Social History (Updated 09/11/23 @ 14:56 by Renetta Brewster) Within the past year, how often did you have a drink containing alcohol: never Score interpretation: A score less than 4 is consistent with normal alcohol consumption. Smoking status: Former smoker Non-prescribed substance use: denies use Highest level of school completed/degree received: high school graduate Are you now , , , , never or living with a partner: living with partner Do you think of yourself as: straight/heterosexual Gender Identity: male Meds Home Medications and Allergies Home Medications Medication Instructions Recorded Confirmed Type calcium carbonate 600 mg-vitamin 2 tab PO DAILY 08/21/23 10/10/23 History D3 5 mcg (200 unit) tablet cetirizine 10 mg tablet (All Day 10 mg PO .lunch PRN allergy 08/21/23 10/10/23 History Allergy (cetirizine)) symptoms cilostazol 50 mg tablet 50 mg PO BID 08/21/23 10/10/23 History diphenhydramine-acetaminophen 2 tab PO QPM PRN sleep 08/21/23 10/10/23 History ferrous sulfate 325 mg (65 mg 325 mg PO BID 08/21/23 10/10/23 History iron) tablet (Feosol) fluticasone propionate 50 2 spray intranasal Q12H 08/21/23 10/10/23 History mcg/actuation nasal spray,suspension insulin glargine 100 unit/mL (3 25 unit subcut DAILY 08/21/23 10/10/23 History mL) subcutaneous pen (Lantus Solostar U-100 Insulin) insulin lispro 100 unit/mL 1 sliding scale dose subcut TID 08/21/23 10/10/23 History subcutaneous pen (Humalog KwikPen (U-100) Insulin) lovastatin 40 mg tablet 80 mg PO DAILY 08/21/23 10/10/23 History metformin 500 mg tablet,extended 1,000 mg PO DAILY 08/21/23 10/10/23 History release 24 hr metoprolol succinate 25 mg 25 mg PO DAILY 08/21/23 10/10/23 History tablet,extended release 24 hr midodrine 10 mg tablet 10 mg PO BID 08/21/23 10/10/23 History mirtazapine 45 mg tablet 45 mg PO QPM 08/21/23 10/10/23 History montelukast 10 mg tablet 10 mg PO DAILY 08/21/23 10/10/23 History multivitamin (Daily Multi-Vitamin 1 tab PO DAILY 08/21/23 10/10/23 History tablet) omeprazole 40 mg capsule,delayed 40 mg PO DAILY 08/21/23 10/10/23 History release sodium zirconium cyclosilicate 5 5 g PO .4 times weekly 08/21/23 10/10/23 History gram oral powder packet (Lokelma) citalopram 20 mg tablet (Celexa) 20 mg PO DAILY 09/06/23 10/10/23 History aspirin 325 mg tablet,delayed 325 mg PO DAILY 09/11/23 10/10/23 History release colesevelam 625 mg tablet 1,250 mg PO DAILY 09/11/23 10/10/23 History gabapentin 100 mg capsule 100 mg PO Q8H #90 caps 09/14/23 10/10/23 Rx tramadol 100 mg tablet 100 mg PO Q6H PRN pain #120 tabs 09/14/23 10/10/23 Rx alprazolam 1 mg tablet 1 mg PO TID 10/06/23 10/10/23 History nirmatrelvir 150 mg-ritonavir 100 See Rx Instructions PO .COMPLEX 10/06/23 10/10/23 History mg tablets in a dose pack (Paxlovid) ondansetron 4 mg disintegrating 4 mg translingual Q6H 10/10/23 10/10/23 History tablet Allergies Allergy/AdvReac Type Severity Reaction Status Date / Time amoxicillin [From Augmentin] Allergy Diarrhea Verified 10/06/23 19:37 canagliflozin [From Invokana] Allergy Unknown Verified 10/06/23 19:37 clavulanic acid Allergy Diarrhea Verified 10/06/23 19:37 [From Augmentin] hydroxyzine Allergy Anxiety Verified 10/06/23 19:37 levofloxacin Allergy joint pain Verified 10/06/23 19:37 mirabegron [From Myrbetriq] Allergy Unknown Verified 10/06/23 19:37 pioglitazone [From Actos] Allergy Abdominal Verified 10/06/23 19:37 Pain Exam Constitutional Vital Signs, click to edit/add: Last Vital Signs Temp 99.1 F 10/10/23 10:15 Pulse 103 H 10/10/23 16:15 Resp 16 10/10/23 16:15 BP 101/72 10/10/23 16:15 Pulse Ox 99 10/10/23 16:15 O2 Del Method Vapotherm 10/10/23 14:11 O2 Flow Rate 40 10/10/23 14:00 FiO2 70 10/10/23 14:00 Documenting provider has reviewed patient's vital signs: yes Common normals: no apparent distress General appearance: cooperative and comfortable HENMT Other: Wearing Vapotherm nasal cannula Eye Common normals: PERRL Chest Common normals: inspection of chest normal Chest: symmetrical chest wall rise Respiratory Other: Diminished breath sounds anteriorly without wheezes, rhonchi posteriorly. Breathing is not labored, no accessory muscle use. Cardio Rate: tachycardic (100's) Rhythm: regular rhythm Peripheral pulses: posterior tibial pulses present bilateral 1+ Other: ~3 second capillary refill on fingers GI Common normals: Normal to inspection, nondistended, normoactive bowel sounds present Bladder/kidney exam: catheter in place Catheter type (Male): suprapubic Extremity Common normals: no clubbing, cyanosis or edema Neuro Sensorium/orientation: awake and alert Speech: speech normal Psych Common normals: mental status grossly normal Speech: normal speech Results Laboratory Findings ABG, PT/INR, D-dimer: ABG ABG pH 7.353 (7.350-7.450) 10/10/23 10:51 ABG pCO2 39.6 mmHg (35.0-45.0) 10/10/23 10:51 ABG pO2 82.8 mmHg (80.0-100.0) 10/10/23 10:51 ABG O2 Saturation 96.9 % 10/10/23 10:51 PT/INR, D-dimer PT 10.9 sec (9.0-11.6) 10/10/23 10:20 INR 1.03 10/10/23 10:20 Abnormal lab findings: Abnormal Labs 10/10/23 10/10/23 10/10/23 10:11 10:20 10:33 RBC 3.63 L Hgb 11.4 L Hct 35.8 L MCV 98.6 H Neut % (Auto) 87.1 H Lymph % (Auto) 9.0 L Eos % (Auto) 0.0 L Baso % (Auto) 0.1 L Neut # (Auto) 8.7 H Lymph # (Auto) 0.9 L Abs Immat Gran (auto) 0.05 H ABG Base Excess BUN 76.0 H* Creatinine 3.27 H Est GFR ( Amer) 22 L Est GFR (Non-Af Amer) 18 L Glucose 176 H AST 14 L ALT 13 L NT-Pro-B Natriuret Pep 3200.0 H* Total Protein 6.1 L Albumin 2.0 L Procalcitonin 2.95 H Urine Clarity Cloudy A Urine Protein 30 A Urine Ketones Trace A Urine Occult Blood Large A Ur Leukocyte Esterase Small A Urine RBC 2-5 A Urine WBC 2-5 A Urine Crystals Seen A Urine Bacteria Large A Urine Yeast Seen A POC Glucose 183 H 10/10/23 10:51 RBC Hgb Hct MCV Neut % (Auto) Lymph % (Auto) Eos % (Auto) Baso % (Auto) Neut # (Auto) Lymph # (Auto) Abs Immat Gran (auto) ABG Base Excess -3.6 L BUN Creatinine Est GFR ( Amer) Est GFR (Non-Af Amer) Glucose AST ALT NT-Pro-B Natriuret Pep Total Protein Albumin Procalcitonin Urine Clarity Urine Protein Urine Ketones Urine Occult Blood Ur Leukocyte Esterase Urine RBC Urine WBC Urine Crystals Urine Bacteria Urine Yeast POC Glucose Diagnostic Findings Chest x-ray: report reviewed CT scan - chest: report reviewed Assessment and Plan Assessment and Plan (1) Septic shock: Assessment and Plan: 1. Septic shock, present on admission. Secondary to bacterial infection - source either urine (Pseudomonas) and/or pulmonary (secondary bacterial healthcare-acquired pneumonia [HCAP] post acute viral pneumonia secondary to COVID-19). Procalcitonin elevated. Failed fluid bolus, required norepinephrine for several hours. MAP currently >65. Hypoalbuminemia - agree with albumin currently. Add Solu-Cortef. Monitor BP - goal MAP >65mmHg. 2. HCAP, present on admission. Suspect secondary bacterial pneumonia which developed after COVID-19 diagnosed 10 days ago. Patient denies any aspiration or choking. Continue Zosyn for now (good Gram negative and anaerobic coverage). 3. Pseudomonas aeruginosa UTI, associated with chronic suprapubic catheter. Present past several admissions - question actual active infection vs. development of colonization. Developing resistance based on last C&S. 4. Acute hypoxic respiratory failure. Secondary to #1 & #2. Not on O2 @ baseline. Continue supportive care, on Vapotherm. Does not want intubated, can use BiPAP/NIPPV if needed. 5. 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 Continue fluid resuscitation, monitor BUN/creatinine. 6. Hypoalbuminemia. Associated with protein calorie malnutrition. Giving albumin in septic shock can decrease ICU stay by 1 day based on literature - okay to give today. Signal Apprentice evaluation, increase healthy protein calories. 7. Mild intermittent asthma, uncompensated. Patient does not sound grossly bronchospastic. He was well-controlled outpatient on Singulair. Have albuterol available PRN. 8. Diabetes mellitus type 1. On chronic insulin. Monitor for any steroid- induced hyperglycemia. 9. Paroxysmal atrial fibrillation. Currently tachycardic, regular rhythm. @ risk of afib with RVR secondary to acute illness. Plan Patient is critically ill requiring intensive care unit management. Tenuous blood pressures, just weaned off norepinephrine with MAP hovering around 65mmHg. Also acute hypoxic respiratory failure on Vapotherm. Needs continued ICU care. 40 minutes critical care time.
[2023-10-10] MEDS: MIDODRINE HCL 5 MG TABLET 10 MG PO (16:59)
[2023-10-10] MEDS: INSULIN ASPART 300 UNIT/3 ML PEN SUBQ ×2 (17:03→21:21)
[2023-10-10] MEDS: HYDROCORTISONE SODIUM SUCC PF 100 MG/2 ML VIAL IVP (17:08)
[2023-10-10 17:12] LABS: Glucometer 493 mg/dL (74-106)
[2023-10-10 17:12] LABS: Troponin I High Sensitivity 23.4 pg/mL (4.0-76.1)
[2023-10-10] MEDS: IPRATROPIUM/ALBUTEROL SULFATE 3 ML AMPUL.NEB IH ×2 (17:15→23:20)
--- NOTE | 2023-10-10 17:18 | RESP.RT ---
titrated O2 down to 50%
--- NOTE | 2023-10-10 18:32 | P.HP_ITS ---
H&P: HPI History of Present Illness Chief complaint: UTI, CONFUSION, COVID+ Narrative: Patient present to the emergency room with increasing weakness and altered mental status. Found to have severe hypotension, had acute hypoxia, tachycardia. Patient with on x-ray. I have bilateral pneumonia-nosocomial acquired pneumonia with sepsis with septic shock. In ER patient required to be placed on Levophed. Despite boluses. Patient transferred to ICU [facility] Medical History (Updated 10/10/23 @ 17:03 by Joey Cook DO) Dehydration ?E86.0 - Dehydration (ICD-10) Adult failure to thrive ?R62.7 - Adult failure to thrive (ICD-10) Acute UTI ?N39.0 - Urinary tract infection, site not specified (ICD-10) Hydroureteronephrosis ?N13.30 - Unspecified hydronephrosis (ICD-10) Acute renal injury ?N17.9 - Acute kidney failure, unspecified (ICD-10) History of blood transfusion ?Z92.89 - Personal history of other medical treatment (ICD-10) Anemia ?D64.9 - Anemia, unspecified (ICD-10) Arthritis ?M19.90 - Unspecified osteoarthritis, unspecified site (ICD-10) Asthma ?J45.909 - Unspecified asthma, uncomplicated (ICD-10) Pneumonia ?J18.9 - Pneumonia, unspecified organism (ICD-10) Tremor ?R25.1 - Tremor, unspecified (ICD-10) Amputation toe ?S98.139A - Complete traumatic amputation of one unspecified lesser toe, initial encounter (ICD-10) Abnormal TRUS (transrectal ultrasound), prostate ?R93.89 - Abnormal findings on diagnostic imaging of other specified body structures (ICD-10) Elevated PSA ?R97.20 - Elevated prostate specific antigen [PSA] (ICD-10) Urinary tract infection ?N39.0 - Urinary tract infection, site not specified (ICD-10) Ulcer of gastric fundus ?K25.9 - Gastric ulcer, unspecified as acute or chronic, without hemorrhage or perforation (ICD-10) Seasonal allergic rhinitis ?J30.2 - Other seasonal allergic rhinitis (ICD-10) Kidney stones ?N20.0 - Calculus of kidney (ICD-10) Glucosuria ?R81 - Glycosuria (ICD-10) H/O esophageal reflux ?Z87.19 - Personal history of other diseases of the digestive system (ICD-10) Diabetes ?E11.9 - Type 2 diabetes mellitus without complications (ICD-10) Atrial fibrillation ?I48.91 - Unspecified atrial fibrillation (ICD-10) Mixed incontinence ?N39.46 - Mixed incontinence (ICD-10) Prostate cancer ?C61 - Malignant neoplasm of prostate (ICD-10) Pacemaker ?Z95.0 - Presence of cardiac pacemaker (ICD-10) Surgical History (Updated 08/30/23 @ 11:53 by Gracie Cabral) History of esophagogastroduodenoscopy ?Z98.890 - Other specified postprocedural states (ICD-10) History of colonoscopy ?Z98.890 - Other specified postprocedural states (ICD-10) History of arthroscopy of knee ?Z98.890 - Other specified postprocedural states (ICD-10) History of ear surgery ?Z98.890 - Other specified postprocedural states (ICD-10) H/O hand surgery ?Z98.890 - Other specified postprocedural states (ICD-10) H/O wrist surgery ?Z98.890 - Other specified postprocedural states (ICD-10) H/O cataract extraction ?Z98.49 - Cataract extraction status, unspecified eye (ICD-10) H/O prostate biopsy ?Z98.890 - Other specified postprocedural states (ICD-10) H/O lithotripsy ?Z98.890 - Other specified postprocedural states (ICD-10) H/O radical prostatectomy ?Z90.79 - Acquired absence of other genital organ(s) (ICD-10) Family History (Updated 08/21/23 @ 10:37 by Le Mata NP) Other Alcoholism Family history of lung cancer Social History (Updated 09/11/23 @ 14:56 by Renetta Brewster) Within the past year, how often did you have a drink containing alcohol: never Score interpretation: A score less than 4 is consistent with normal alcohol consumption. Smoking status: Former smoker Non-prescribed substance use: denies use Highest level of school completed/degree received: high school graduate Are you now , , , , never or living with a partner: living with partner Do you think of yourself as: straight/heterosexual Gender Identity: male Meds Home Medications and Allergies Home Medications Medication Instructions Recorded Confirmed Type calcium carbonate 600 mg-vitamin 2 tab PO DAILY 08/21/23 10/10/23 History D3 5 mcg (200 unit) tablet cetirizine 10 mg tablet (All Day 10 mg PO .lunch PRN allergy 08/21/23 10/10/23 History Allergy (cetirizine)) symptoms cilostazol 50 mg tablet 50 mg PO BID 08/21/23 10/10/23 History diphenhydramine-acetaminophen 2 tab PO QPM PRN sleep 08/21/23 10/10/23 History ferrous sulfate 325 mg (65 mg 325 mg PO BID 08/21/23 10/10/23 History iron) tablet (Feosol) fluticasone propionate 50 2 spray intranasal Q12H 08/21/23 10/10/23 History mcg/actuation nasal spray,suspension insulin glargine 100 unit/mL (3 25 unit subcut DAILY 08/21/23 10/10/23 History mL) subcutaneous pen (Lantus Solostar U-100 Insulin) insulin lispro 100 unit/mL 1 sliding scale dose subcut TID 08/21/23 10/10/23 History subcutaneous pen (Humalog KwikPen (U-100) Insulin) lovastatin 40 mg tablet 80 mg PO DAILY 08/21/23 10/10/23 History metformin 500 mg tablet,extended 1,000 mg PO DAILY 08/21/23 10/10/23 History release 24 hr metoprolol succinate 25 mg 25 mg PO DAILY 08/21/23 10/10/23 History tablet,extended release 24 hr midodrine 10 mg tablet 10 mg PO BID 08/21/23 10/10/23 History mirtazapine 45 mg tablet 45 mg PO QPM 08/21/23 10/10/23 History montelukast 10 mg tablet 10 mg PO DAILY 08/21/23 10/10/23 History multivitamin (Daily Multi-Vitamin 1 tab PO DAILY 08/21/23 10/10/23 History tablet) omeprazole 40 mg capsule,delayed 40 mg PO DAILY 08/21/23 10/10/23 History release sodium zirconium cyclosilicate 5 5 g PO .4 times weekly 08/21/23 10/10/23 History gram oral powder packet (Lokelma) citalopram 20 mg tablet (Celexa) 20 mg PO DAILY 09/06/23 10/10/23 History aspirin 325 mg tablet,delayed 325 mg PO DAILY 09/11/23 10/10/23 History release colesevelam 625 mg tablet 1,250 mg PO DAILY 09/11/23 10/10/23 History gabapentin 100 mg capsule 100 mg PO Q8H #90 caps 09/14/23 10/10/23 Rx tramadol 100 mg tablet 100 mg PO Q6H PRN pain #120 tabs 09/14/23 10/10/23 Rx alprazolam 1 mg tablet 1 mg PO TID 10/06/23 10/10/23 History nirmatrelvir 150 mg-ritonavir 100 See Rx Instructions PO .COMPLEX 10/06/23 10/10/23 History mg tablets in a dose pack (Paxlovid) ondansetron 4 mg disintegrating 4 mg translingual Q6H 10/10/23 10/10/23 History tablet Allergies Allergy/AdvReac Type Severity Reaction Status Date / Time amoxicillin [From Augmentin] Allergy Diarrhea Verified 10/06/23 19:37 canagliflozin [From Invokana] Allergy Unknown Verified 10/06/23 19:37 clavulanic acid Allergy Diarrhea Verified 10/06/23 19:37 [From Augmentin] hydroxyzine Allergy Anxiety Verified 10/06/23 19:37 levofloxacin Allergy joint pain Verified 10/06/23 19:37 mirabegron [From Myrbetriq] Allergy Unknown Verified 10/06/23 19:37 pioglitazone [From Actos] Allergy Abdominal Verified 10/06/23 19:37 Pain Exam Constitutional Vital Signs, click to edit/add: Last Vital Signs Temp 99.1 F 10/10/23 10:15 Pulse 93 H 10/10/23 17:17 Resp 16 10/10/23 16:15 BP 101/72 10/10/23 16:15 Pulse Ox 99 10/10/23 17:17 O2 Del Method Vapotherm 10/10/23 17:17 O2 Flow Rate 40 10/10/23 17:17 FiO2 70 10/10/23 17:17 Documenting provider has reviewed patient's vital signs: yes Common normals: no apparent distress Respiratory Auscultation: rhonchi and diminished lung sounds Cardio Common normals: regular rhythm; irregular rate Rate: tachycardic GI Common normals: negative for Normal to inspection, nondistended, normoactive bowel sounds present (Suprapubic catheter in place) Neuro Common normals: not oriented x3 Sensorium/orientation: not awake (Patient exhausted, hard to arouse. Likely secondary to all of the above) Results Labs Labs: Short CBC 10/10/23 Range/Units 10:20 WBC 9.9 (4.0-11.0) 10^3/uL Hgb 11.4 L (14.0-18.0) g/dL Hct 35.8 L (42.0-54.0) % Plt Count 185 (150-450) 10^3/uL BMP 10/10/23 10:20 Sodium 139 Potassium 5.0 Chloride 104 Carbon Dioxide 23.9 BUN 76.0 H* Creatinine 3.27 H Glucose 176 H Calcium 8.8 Liver Function 10/10/23 Range/Units 10:20 Total Bilirubin 0.3 (0.2-1.0) mg/dL AST 14 L (15-37) U/L ALT 13 L (16-63) U/L Alkaline Phosphatase 51 (46-116) U/L Albumin 2.0 L (3.4-5.0) g/dL Urine 10/10/23 Range/Units 10:33 Urine Color Yellow (YELLOW) Urine Clarity Cloudy A (CLEAR) Urine pH 5.5 (5.0-9.0) Ur Specific [place] 1.025 (1.005-1.025) Urine Protein 30 A (NEG/TRACE) mg/dL Urine Glucose (UA) Negative (NEGATIVE) mg/dL ABG ABG results: 10/10/23 10:51 ABG pH 7.353 ABG pCO2 39.6 ABG pO2 82.8 ABG HCO3 22.0 ABG O2 Saturation 96.9 ABG Base Excess -3.6 L Assessment and Plan Assessment and Plan (1) Septic shock: Plan Severe hypotension, tachycardia, respiratory distress with acute hypoxic respiratory failure requiring Vapotherm, positive procalcitonin, acute renal failure,, altered mental status resulting in multisystem organ failure(Brain, kidney, cardiac) - in the sepsis with septic shock secondary to healthcare acquired pneumonia, also possible sources UTI has been treated as an outpatient for Pseudomonas in his urine. Blood cultures pending, urine culture pending, will try to obtain sputum culture, pressor support with Levophed and try to wean that. Will dose albumin. Consult to pulmonology for recommendations Hyponatremia and acute kidney injury secondary to dehydration secondary to the above-monitor daily Sepsis with septic shock-secondary to the above-on Levophed but have been able to wean that off currently. Will keep as a as needed overnight. Maintain fluid resuscitation. Patient blood pressure normal from his 90s to 100 systolic. Multifocal pneumonia secondary to healthcare acquired pneumonia-obtain sputum culture. IV antibiotics. Will base her IV antibiotics based on the resistance pattern from his UTI which should cover pulmonary as well. Acute UTI-Pseudomonas on previous culture-will repeat cultures and treat appropriately Elevated BNP-possible demand ischemia resulting in heart failure-repeat lab in a.m., the repeat echocardiogram. Hyperglycemia-monitor daily, insulin-dependent diabetic-placed on just insulin sliding scale will hold off on long-acting insulin currently not sure if patient is going to be eating-likely sugar elevation based on stress reaction from the above and steroid use. Iron deficient anemia as well as anemia of chronic kidney disease-monitor daily Poor IV access-has been very difficult to obtain IVs in the past. Will place PICC line. Severe protein calorie malnutrition-we will add diet supplements. With severity of illness is outlined above and intensity of service patient is admitted to the intensive care unit as an inpatient Urinary Catheter Management Urinary Catheter Management Suprapubic: Cath placed during this visit: no
[2023-10-10 21:32] LABS: Glucometer 417 mg/dL (74-106)
[2023-10-11] VITALS (67 sets, daily range): BP systolic 99–154; BP diastolic 54–82; PULSE 77–111; RESP 14–26; TEMP 36.3–37.1; O2SAT 83–99
[2023-10-11] MEDS: PIPERACILLIN SODIUM/TAZOBACTAM 3.375 GM in 0.9 % SODIUM CHLORIDE 50 ML IV ×2 (01:10→13:07)
[2023-10-11] MEDS: LACTATED RINGER'S SOLUTION 1,000 ML 100 ML IV ×3 (01:11→21:32)
[2023-10-11] MEDS: HYDROCORTISONE SODIUM SUCC PF 100 MG/2 ML VIAL IVP (01:11)
[2023-10-11] MEDS: IPRATROPIUM/ALBUTEROL SULFATE 3 ML AMPUL.NEB IH ×4 (04:04→22:45)
--- NOTE | 2023-10-11 04:04 | RESP.RT ---
decreased down to 1L
[2023-10-11 05:38] LABS: Hemoglobin 7.3 g/dL (14.0-18.0); Mean Corpuscular HGB Conc 31.6 g/dL (29.9-35.2); Mean Corpuscular Hemoglobin 31.6 pg (25.9-34.0); Mean Platelet Volume 10.7 fL (9.5-13.5); Platelet Count 117 10^3/uL (150-450); Red Blood Count 2.31 10^6/uL (4.70-6.10); Red Cell Distribution Width 13.7 % (11.0-15.0); White Blood Count 10.2 10^3/uL (4.0-11.0)
[2023-10-11 05:46] LABS: Hematocrit 23.1 % (42.0-54.0)
[2023-10-11 06:17] LABS: Alanine Aminotransferase 13 U/L (16-63); Albumin Globulin Ratio 0.6; Alkaline Phosphatase 38 U/L (46-116); Aspartate Amino Transferase 9 U/L (15-37); BUN Creatinine Ratio 24.7; Bilirubin Total 0.3 mg/dL (0.2-1.0); Calcium 8.2 mg/dL (8.5-10.1); Carbon Dioxide 20.4 mmol/L (21.0-32.0); Chloride 103 mmol/L (98-107); Estimated GFR (African America 32 (>=60); Estimated GFR (Non-African Ame 26 (>=60); Globulin 3.3 g/dL; Glucose 344 mg/dL (74-106); Magnesium 1.6 mg/dL (1.8-2.4); Potassium 4.4 mmol/L (3.5-5.1); Sodium 137 mmol/L (136-145); Total Protein 5.3 g/dL (6.4-8.2)
--- NOTE | 2023-10-11 07:36 | P.PN_ITS ---
Progress Note: Subjective Subjective Interval history: Patient much more awake this morning. Answers questions appropriately. No complaints. Denies chest pain or shortness of breath does have protracted coughing episodes. Exam Constitutional Vital Signs, click to edit/add: Last Vital Signs Temp 98.7 F 10/11/23 00:00 Pulse 84 10/11/23 06:00 Resp 18 10/11/23 04:16 BP 123/78 10/11/23 00:00 Pulse Ox 97 10/11/23 06:00 O2 Del Method Nasal Cannula 10/11/23 04:16 O2 Flow Rate 1 10/11/23 04:16 FiO2 40 10/10/23 22:30 Documenting provider has reviewed patient's vital signs: yes Common normals: no apparent distress Respiratory Auscultation: rhonchi and diminished lung sounds Cardio Common normals: regular rhythm; irregular rate Rate: tachycardic GI Common normals: negative for Normal to inspection, nondistended, normoactive bowel sounds present (Suprapubic catheter in place) Neuro Common normals: not oriented x3 Sensorium/orientation: not awake (Patient exhausted, hard to arouse. Likely secondary to all of the above) Progress Note: Objective Labs Labs: Short CBC 10/10/23 10/11/23 Range/Units 10:20 05:25 WBC 9.9 10.2 (4.0-11.0) 10^3/uL Hgb 11.4 L 7.3 L (14.0-18.0) g/dL Hct 35.8 L 23.1 L* (42.0-54.0) % Plt Count 185 117 L (150-450) 10^3/uL BMP 10/10/23 10/11/23 10:20 05:25 Sodium 139 137 Potassium 5.0 4.4 Chloride 104 103 Carbon Dioxide 23.9 20.4 L BUN 76.0 H* 58.0 H Creatinine 3.27 H 2.35 H Glucose 176 H 344 H Calcium 8.8 8.2 L Liver Function 10/10/23 10/11/23 Range/Units 10:20 05:25 Total Bilirubin 0.3 0.3 (0.2-1.0) mg/dL AST 14 L 9 L (15-37) U/L ALT 13 L 13 L (16-63) U/L Alkaline Phosphatase 51 38 L (46-116) U/L Albumin 2.0 L 2.0 L (3.4-5.0) g/dL Urine // Range/Units 10:33 Urine Color Yellow (YELLOW) Urine Clarity Cloudy A (CLEAR) Urine pH 5.5 (5.0-9.0) Ur Specific Thornton 1.025 (1.005-1.025) Urine Protein 30 A (NEG/TRACE) mg/dL Urine Glucose (UA) Negative (NEGATIVE) mg/dL Progress Note: A&P Assessment and Plan (1) Septic shock: Plan Severe hypotension, tachycardia, respiratory distress with acute hypoxic respiratory failure requiring Vapotherm, positive procalcitonin, acute renal failure, altered mental status resulting in multisystem organ failure(Brain, kidney, cardiac) - in the sepsis with septic shock secondary to healthcare acquired pneumonia, also possible sources UTI has been treated as an outpatient for Pseudomonas in his urine. Blood cultures pending, urine culture pending, will try to obtain sputum culture, able to be weaned off of blood pressure support. Continue with IV hydration due to acute renal failure. Try to obtain sputum culture. Overall much improved from previous day Hyponatremia and acute kidney injury secondary to dehydration secondary to the above-improving Sepsis with septic shock-secondary to the above-off blood pressure support. Will DC the hydrocortisone. Multifocal pneumonia secondary to healthcare acquired pneumonia-obtain sputum culture. Continue with current treatment plan as outlined above, greatly appreciate pulmonary input Acute UTI-Pseudomonas on previous culture-will repeat cultures and treat appropriately Elevated BNP with a history of LVH-possible demand ischemia resulting in heart failure-check on echocardiogram today. BNP is higher. Will check HST Hyperglycemia-monitor daily, insulin-dependent diabetic-continue sliding scale will add long-acting insulin today. Iron deficient anemia as well as anemia of chronic kidney disease-monitor daily Poor IV access-has been very difficult to obtain IVs in the past. Will place PICC line. Severe protein calorie malnutrition-we will add diet supplements. Sacral decubitus-consult to wound therapy Thrombocytopenia-likely due to stress reaction from the above-monitor daily. Acute blood loss anemia with a 5 g drop in hemoglobin. Will transfuse 1 unit. Repeat CBC posttransfusion. Hypomagnesemia-supplement With severity of illness is outlined above and intensity of service patient is admitted to the intensive care unit as an inpatient-patient likely here 2-3 more days although has made great progress in the first 24 hours Urinary Catheter Management Urinary Catheter Management Suprapubic: Cath placed during this visit: no
[2023-10-11] MEDS: PANTOPRAZOLE SODIUM 40 MG VIAL IV ×2 (08:15→17:45)
[2023-10-11] MEDS: MAGNESIUM OXIDE 400 MG TABLET PO (08:18)
[2023-10-11] MEDS: PROSTAT 15 GM PROTEIN/100 CAL 30 ML LIQUID PACKET PO ×2 (08:18→21:32)
[2023-10-11] MEDS: CITALOPRAM HYDROBROMIDE 20 MG TABLET PO (08:18)
[2023-10-11] MEDS: MIDODRINE HCL 5 MG TABLET 10 MG PO ×2 (08:18→16:45)
[2023-10-11] MEDS: INSULIN DETEMIR 300 UNIT/3 ML INSULN.PEN 20 UNIT SUBQ (08:19)
[2023-10-11] MEDS: ENSURE HP 237 ML LIQUID PO ×2 (08:19→21:32)
[2023-10-11] MEDS: INSULIN ASPART 300 UNIT/3 ML PEN SUBQ ×4 (08:24→22:48)
[2023-10-11 08:33] LABS: Glucometer 427 mg/dL (74-106)
--- NOTE | 2023-10-11 08:41 | CM.NOTE ---
Rounds made with Dr. Walton, no discharge today. Pt does plan on returning to [place] at discharge.
[2023-10-11 08:56] LABS: Troponin I High Sensitivity 22.8 pg/mL (4.0-76.1)
[2023-10-11 09:02] LABS: Segmented Neut Absolute Manual 9.58 10^3/uL (1.4-6.5)
[2023-10-11] MEDS: 0.9 % SODIUM CHLORIDE 250 ML IV.SOLN IV (10:20)
[2023-10-11 11:24] LABS: Glucometer 494 mg/dL (74-106)
[2023-10-11 12:22] LABS: Basophils Percent Auto 0.2 % (0.2-2.0); Immature Granulocytes Abs Auto 0.14 10^3/uL (0.00-0.03); Immature Granulocytes Pct Auto 1.2 % (0.0-0.5); Lymphocytes Absolute Auto 0.1 10^3/uL (1.2-3.8); Lymphocytes Percent Auto 1.1 % (20.5-60.0); Mean Corpuscular HGB Conc 31.9 g/dL (29.9-35.2); Mean Corpuscular Hemoglobin 31.3 pg (25.9-34.0); Mean Corpuscular Volume 98.1 fL (80.0-94.0); Monocytes Absolute Auto 0.5 10^3/uL (0.3-0.8); Monocytes Percent Auto 4.3 % (1.7-12.0); Neutrophils Absolute Auto 10.6 10^3/uL (1.4-6.5); Neutrophils Percent Auto 93.2 % (43.0-75.0); Platelet Count 124 10^3/uL (150-450); Red Blood Count 2.65 10^6/uL (4.70-6.10); Red Cell Distribution Width 14.4 % (11.0-15.0); White Blood Count 11.4 10^3/uL (4.0-11.0)
[2023-10-11 12:23] LABS: Hemoglobin 8.3 g/dL (14.0-18.0)
--- NOTE | 2023-10-11 13:02 | PM.PLPN ---
Progress Note: A&P Assessment and Plan (1) Septic shock: Assessment and Plan: 1. Septic shock, present on admission. Secondary to bacterial infection - source either urine (Pseudomonas & Enterococcus) and/or pulmonary (secondary bacterial healthcare-acquired pneumonia [HCAP] post acute viral pneumonia secondary to COVID-19). Improvement from yesterday - off norepinephrine, maintaing good MAP. D/C Solu-Cortef, continue supportive care. 2. HCAP, present on admission. Suspect secondary bacterial pneumonia which developed after COVID-19 diagnosed 10 days ago. Awaiting cultures. Continue Zosyn. 3. Pseudomonas aeruginosa and Enterococcus faecalis UTI, associated with chronic suprapubic catheter. Reviewed urine from 10/06/2023 - now positive for Enterococcus. Pseudomonas susceptible to Zosyn and Enterococcus susceptible to Zyvox. Awaiting any further cultures. 4. Acute hypoxic respiratory failure. Secondary to #1 & #2. Improving well, weaned down to nasal cannula. Not on O2 @ baseline. 5. 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 Improving with fluids. 6. Anemia, unspecified. Hb dropped to 7.3g/dL today - likely more of a true level after fluid resuscitation. PRBC were ordered. Defer any further w/up to hospitalist/PCP. 7. Hypoalbuminemia. Associated with protein calorie malnutrition. 8. Mild intermittent asthma, uncompensated. Improved. Continue Singulair. 9. Diabetes mellitus type 1. Continue insulin. 10. Paroxysmal atrial fibrillation. PACs noted, but baseline is NSR. Plan Patient is recovering very well, especially regarding his pulmonary status. Subjective Subjective Interval history: Discussed with RN. Patient appears much better this AM. He is off norepinephrine and O2 has been weaned down to traditional nasal cannula. Patient himself states he feels much better. Labs are improving with exception of Hb dropping to 7.3g/dL. Patient continues to have a relatively non-productive cough. Exam Constitutional Vital Signs, click to edit/add: Last Vital Signs Temp 97.8 F 10/11/23 11:07 Pulse 96 H 10/11/23 11:56 Resp 25 H 10/11/23 11:23 BP 99/54 10/11/23 11:07 Pulse Ox 91 L 10/11/23 11:56 O2 Del Method Room Air 10/11/23 11:07 O2 Flow Rate 1 10/11/23 04:16 FiO2 40 10/10/23 22:30 Documenting provider has reviewed patient's vital signs: yes Common normals: no apparent distress HENMT Other: No oral candidiasis. Wearing nasal cannula. Chest Common normals: inspection of chest normal Chest: symmetrical chest wall rise Respiratory Other: More rhonchi today R > L - increased air movement. No wheezes. No pursed lip breathing, no conversational dyspnea. Cardio Rate: regular rate Rhythm: regular rhythm Other: Occasional PACs GI Common normals: Normal to inspection, nondistended, normoactive bowel sounds present Bladder/kidney exam: catheter in place Catheter type (Male): suprapubic Extremity Other: Right PICC. 2 second capillary refill. Neuro Sensorium/orientation: awake and alert Psych Common normals: mental status grossly normal Speech: normal speech Urinary Catheter Management Urinary Catheter Management Suprapubic: Cath placed during this visit: no
[2023-10-11] MEDS: ALPRAZOLAM 1 MG TABLET PO ×2 (13:07→21:32)
--- NOTE | 2023-10-11 13:15 | W.PM.WC ---
Wound Consult Note Assessment and Plan (1) Septic shock: Plan Patient seen today for assessment of skin integrity on coccyx/buttocks. Patient currently laying in bed. Patient is hard of hearing but is agreeable to turning on side to allow assessment of buttocks skin. Overall skin is intact, nonblanching pink/red tissue to bilateral buttocks and sacral/coccyx area. Patient does have a linear open area to the gluteal crease that measures 2cmx0.1cmx0.1cm. This is most likely due to incontinence or moisture, along with friction in bed. Nonblanching erythema is stage 1 pressure injury. Recommend: Triad cream - thin layer to any open skin to coccyx/buttocks daily and as needed after incontinence episodes. Allevyn sacral dressing to protect skin from incontinence and moisture. Change as needed. Reposition frequently off sacral area. Air mattress overlay. Unable to take photos due to technical problem. Bedside RN to take photos. Please call [phone] with any questions or concerns.
--- NOTE | 2023-10-11 15:09 | CM.NOTE ---
Updates faxed to [facility].
--- NOTE | 2023-10-11 15:40 | CM.NOTE ---
Reviewed important message of medicare with the patient and patient voiced understanding of his Medicare rights and signed the form. Original copy given to patient and copy placed on the chart.
[2023-10-11 16:04] LABS: SARS-CoV-2 NAA NOT DETECTED (NOT DETECTE)
[2023-10-11 16:08] LABS: Glucose 537 mg/dL (74-106)
[2023-10-11 22:48] LABS: Glucometer 407 mg/dL (74-106)
[2023-10-12] VITALS (44 sets, daily range): BP systolic 103–169; BP diastolic 66–96; PULSE 78–114; RESP 15–30; TEMP 36.7–37.1; O2SAT 86–97; BMI 23.3
[2023-10-12] MEDS: PIPERACILLIN SODIUM/TAZOBACTAM 3.375 GM in 0.9 % SODIUM CHLORIDE 50 ML IV ×2 (01:33→12:47)
[2023-10-12] MEDS: IPRATROPIUM/ALBUTEROL SULFATE 3 ML AMPUL.NEB IH ×4 (04:53→21:58)
[2023-10-12] MEDS: ALPRAZOLAM 1 MG TABLET PO ×2 (05:01→22:31)
[2023-10-12 05:34] LABS: Basophils Percent Auto 0.1 % (0.2-2.0); Hematocrit 29.2 % (42.0-54.0); Hemoglobin 9.6 g/dL (14.0-18.0); Immature Granulocytes Abs Auto 0.22 10^3/uL (0.00-0.03); Immature Granulocytes Pct Auto 1.8 % (0.0-0.5); Lymphocytes Absolute Auto 0.4 10^3/uL (1.2-3.8); Lymphocytes Percent Auto 3.1 % (20.5-60.0); Mean Corpuscular HGB Conc 32.9 g/dL (29.9-35.2); Mean Corpuscular Hemoglobin 31.3 pg (25.9-34.0); Mean Corpuscular Volume 95.1 fL (80.0-94.0); Mean Platelet Volume 11.2 fL (9.5-13.5); Monocytes Absolute Auto 0.7 10^3/uL (0.3-0.8); Monocytes Percent Auto 5.5 % (1.7-12.0); Neutrophils Absolute Auto 10.9 10^3/uL (1.4-6.5); Neutrophils Percent Auto 89.5 % (43.0-75.0); Platelet Count 144 10^3/uL (150-450); Red Blood Count 3.07 10^6/uL (4.70-6.10); Red Cell Distribution Width 15.1 % (11.0-15.0); White Blood Count 12.1 10^3/uL (4.0-11.0)
[2023-10-12 05:55] LABS: Alanine Aminotransferase 28 U/L (16-63); Albumin Globulin Ratio 0.6; Albumin Level 2.3 g/dL (3.4-5.0); Alkaline Phosphatase 51 U/L (46-116); Aspartate Amino Transferase 20 U/L (15-37); Bilirubin Total 0.3 mg/dL (0.2-1.0); Calcium 9.2 mg/dL (8.5-10.1); Carbon Dioxide 30.3 mmol/L (21.0-32.0); Chloride 105 mmol/L (98-107); Estimated GFR (African America 39 (>=60); Estimated GFR (Non-African Ame 32 (>=60); Globulin 4.1 g/dL; Glucose 238 mg/dL (74-106); Magnesium 1.8 mg/dL (1.8-2.4); Potassium 4.3 mmol/L (3.5-5.1); Sodium 139 mmol/L (136-145); Total Protein 6.4 g/dL (6.4-8.2)
[2023-10-12] MEDS: PANTOPRAZOLE SODIUM 40 MG VIAL IV ×2 (06:13→22:31)
--- NOTE | 2023-10-12 07:38 | CM.NOTE ---
Rounds made with Dr. Walton, no discharge today. Discharge plan is to discharge back to [place].
[2023-10-12] MEDS: BUMETANIDE 10 MG in 0.9 % SODIUM CHLORIDE 160 ML 20 MG IV (07:46)
--- NOTE | 2023-10-12 07:51 | P.PN_ITS ---
Progress Note: Subjective Subjective Interval history: Patient more awake this morning. Does answer questions appropriately. Is still having confusion at times which would be expected for being in the ICU and his advancing age. Exam Constitutional Vital Signs, click to edit/add: Last Vital Signs Temp 98.7 F 10/12/23 07:36 Pulse 90 10/12/23 07:36 Resp 18 10/12/23 07:36 BP 163/96 H 10/12/23 07:36 Pulse Ox 94 L 10/12/23 07:36 O2 Del Method Room Air 10/12/23 07:36 O2 Flow Rate 1 10/11/23 04:16 FiO2 40 10/10/23 22:30 Documenting provider has reviewed patient's vital signs: yes Common normals: no apparent distress Respiratory Auscultation: rales (Bases), rhonchi and diminished lung sounds Cardio Common normals: regular rhythm; irregular rate Rate: tachycardic GI Common normals: negative for Normal to inspection, nondistended, normoactive bowel sounds present (Suprapubic catheter in place) Extremity Common normals: normal to inspection (1 + edema) Neuro Common normals: not oriented x3 Sensorium/orientation: not awake (Patient exhausted, hard to arouse. Likely secondary to all of the above) Progress Note: Objective Labs Labs: Short CBC 10/11/23 10/12/23 Range/Units 12:14 05:00 WBC 11.4 H 12.1 H (4.0-11.0) 10^3/uL Hgb 8.3 L 9.6 L (14.0-18.0) g/dL Hct 26.0 L 29.2 L (42.0-54.0) % Plt Count 124 L 144 L (150-450) 10^3/uL BMP 10/11/23 10/12/23 15:40 05:00 Sodium 139 Potassium 4.3 Chloride 105 Carbon Dioxide 30.3 BUN 48.0 H Creatinine 2.00 H Glucose 537 H* 238 H Calcium 9.2 Liver Function 10/12/23 Range/Units 05:00 Total Bilirubin 0.3 (0.2-1.0) mg/dL AST 20 (15-37) U/L ALT 28 (16-63) U/L Alkaline Phosphatase 51 (46-116) U/L Albumin 2.3 L (3.4-5.0) g/dL Progress Note: A&P Assessment and Plan (1) Septic shock: Plan Severe hypotension, tachycardia, respiratory distress with acute hypoxic respiratory failure requiring Vapotherm, positive procalcitonin, acute renal failure, altered mental status resulting in multisystem organ failure(Brain, kidney, cardiac) - in the sepsis with septic shock secondary to healthcare acquired pneumonia, also possible sources UTI has been treated as an outpatient for Pseudomonas in his urine. Will check in cultures later today-overall from an infectious standpoint is much improved. Fluid overload secondary to fluid resuscitation from the above(edema, rales in bases and significantly elevated BNP)-kidney function slowly improving to baseline so we will use Bumex drip to try to improve her diuresis without stressing the kidneys. Hyponatremia and acute kidney injury secondary to dehydration secondary to the above-improving Sepsis with septic shock-secondary to the above-off blood pressure support. Continue current antibiotic regime Multifocal pneumonia secondary to healthcare acquired pneumonia-unable to obtain sputum culture but so far from an infection standpoint which is overall improved. White blood cell count is slightly elevated but we will maintain cur rent treatment plan Acute UTI-Pseudomonas on previous culture-culture should return later today Elevated BNP with a history of LVH-possible demand ischemia resulting in heart failure-check on echocardiogram today. BNP significantly higher-see above Hyperglycemia-monitor daily, insulin-dependent diabetic-adjust insulin sliding scale Iron deficient anemia as well as anemia of chronic kidney disease-monitor daily Poor IV access-has been very difficult to obtain IVs in the past. Will place PICC line. Severe protein calorie malnutrition-we will add diet supplements. Sacral decubitus-consult to wound therapy Thrombocytopenia-likely due to stress reaction from the above-monitor daily.- Slightly improved Acute blood loss anemia with a 5 g drop in hemoglobin. Will transfuse 1 unit. Repeat CBC posttransfusion. Hypomagnesemia-supplement With severity of illness is outlined above and intensity of service patient is admitted to the intensive care unit as an inpatient-patient likely here 2-3 more days although has made great progress in the first 24 hours Urinary Catheter Management Urinary Catheter Management Suprapubic: Cath placed during this visit: no
[2023-10-12] MEDS: INSULIN ASPART 300 UNIT/3 ML PEN SUBQ ×4 (08:26→23:25)
[2023-10-12] MEDS: INSULIN DETEMIR 300 UNIT/3 ML INSULN.PEN 30 UNIT SUBQ (08:27)
[2023-10-12] MEDS: MAGNESIUM OXIDE 400 MG TABLET PO (08:28)
[2023-10-12] MEDS: ENSURE HP 237 ML LIQUID PO ×2 (08:28→22:31)
[2023-10-12] MEDS: PROSTAT 15 GM PROTEIN/100 CAL 30 ML LIQUID PACKET PO ×2 (08:28→22:31)
[2023-10-12] MEDS: CITALOPRAM HYDROBROMIDE 20 MG TABLET PO (08:28)
[2023-10-12] MEDS: MIDODRINE HCL 5 MG TABLET 10 MG PO (08:28)
[2023-10-12 11:03] LABS: Glucometer 311 mg/dL (74-106)
--- NOTE | 2023-10-12 11:23 | CM.NOTE ---
Updates sent to [facility].
--- NOTE | 2023-10-12 13:59 | PT.DAILY ---
Physical Therapy Daily Note PT Daily Note/Assess Start: 10/11/23 13:39 Freq: Status: Active Protocol: Document 10/12/23 09:00 HARRIS (Rec: 10/12/23 13:59 [email or web address] [id number]) Physical Therapy Daily Note/Assessment Time In/Time Out Time In 09:00 Time Out 09:15 Subjective Subjective Patient is argumentative with getting up into chair, but does follow commands and participate. Therapeutic Activity Time Therapeutic Activity Minutes (minutes) 15 Therapeutic Activity Units 1 Therapeutic Activity Treatment Bed Mobility Ability Minimum Assist Chair Transfer Ability Minimum Assist Therapeutic Activity Comments Nursing assist with getting patient up. Does well but 2 assist as patient argumentative throughout RX. Does follow commands, brings feet off bed self with supine to sit even while yelling that he can't do it, he does villaseñor it. Min assist to push upper body up into sitting. EOB sitting x 2 min without LOB. Sit to stand at RW min assist x2, again reports that he can not do this while completing the task. Gait 7 steps from bed to chair with min assist x2. Total Physical Therapy Time Total Therapy Minutes 15 Total Physical Therapy Units 1 Summary Daily Note Summary Patient argues throughout RX, and several times states he can not do something while he is doing it. Overall improved ability with EOB sitting, and ability to stand and ambulate to chair with RW and 2 assist for safety. Recommend SNF [facility] to continue to build strength and safety awareness with gait and transfers.
[2023-10-12 16:48] LABS: Glucometer 152 mg/dL (74-106)
--- NOTE | 2023-10-12 19:01 | PM.PLPN ---
Progress Note: A&P Assessment and Plan (1) Septic shock: Assessment and Plan: 1. Septic shock, present on admission. Secondary to bacterial infection - source either urine (Pseudomonas & Enterococcus) and/or pulmonary (secondary bacterial healthcare-acquired pneumonia [HCAP] post acute viral pneumonia secondary to COVID-19). Shock resolved. 2. HCAP, present on admission. Suspect secondary bacterial pneumonia which developed after COVID-19 diagnosed 10 days ago. Blood cultures negative. Continue Zosyn. Pulmonary status improved - need to optimize pulmonary toilet. Add saline nebs on top of DuoNeb. Continue PEP. 3. Pseudomonas aeruginosa and Enterococcus faecalis UTI, associated with chronic suprapubic catheter. Reviewed urine from 10/06/2023 - now positive for Enterococcus. Pseudomonas susceptible to Zosyn and Enterococcus susceptible to Zyvox. Current urine cultures very similar if not the same as from 10/06/2023 with same susceptibilities. Continue Zosyn & Zyvox. 4. Acute hypoxic respiratory failure. Secondary to #1 & #2. Continues to improve. Been able to go to [facility]. 5. 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 6. Anemia, unspecified. s/p PRBC transfusion. Source/cause unclear. 7. Hypoalbuminemia. Associated with protein calorie malnutrition. 8. Mild intermittent asthma, uncompensated. Continue Singulair. 9. Diabetes mellitus type 1. Continue insulin. 10. Paroxysmal atrial fibrillation. Subjective Subjective Interval history: Doing okay. Has loose rhonchorous cough but difficult to expectorate. Oxygenation is improving. No new complaints. Exam Constitutional Vital Signs, click to edit/add: Last Vital Signs Temp 98.3 F 10/12/23 16:39 Pulse 87 10/12/23 16:39 Resp 16 10/12/23 16:39 BP 145/90 H 10/12/23 16:39 Pulse Ox 93 L 10/12/23 16:45 O2 Del Method Room Air 10/12/23 16:45 O2 Flow Rate 1 10/11/23 04:16 FiO2 40 10/10/23 22:30 Documenting provider has reviewed patient's vital signs: yes Common normals: no apparent distress HENMT Face and sinus: normal facial exam Nose: external nose normal Chest Common normals: inspection of chest normal Chest: symmetrical chest wall rise Respiratory Other: Rhonchorous cough. Rhonchi bilaterally. No wheezes. No accessory muscle use. Not labored breathing. Cardio Rate: regular rate Rhythm: regular rhythm Other: PVCs noted GI Inspection: normal to inspection Bladder/kidney exam: catheter in place Catheter type (Male): suprapubic Extremity Common normals: normal to inspection and no clubbing, cyanosis or edema Neuro Sensorium/orientation: awake and alert Psych Attitude: calm Urinary Catheter Management Urinary Catheter Management Suprapubic: Cath placed during this visit: no
[2023-10-12] MEDS: SODIUM CHLORIDE 3% INHALATION 15 ML NEB 3 ML IH (21:58)
[2023-10-12 23:10] LABS: Glucometer 273 mg/dL (74-106)
[2023-10-13] VITALS (130 sets, daily range): BP systolic 82–151; BP diastolic 46–86; PULSE 0–108; RESP 8–32; TEMP 36.8–37.3; O2SAT 84–98
[2023-10-13] MEDS: PIPERACILLIN SODIUM/TAZOBACTAM 3.375 GM in 0.9 % SODIUM CHLORIDE 50 ML IV (01:56)
[2023-10-13] MEDS: IPRATROPIUM/ALBUTEROL SULFATE 3 ML AMPUL.NEB IH ×4 (04:32→20:18)
[2023-10-13] MEDS: SODIUM CHLORIDE 3% INHALATION 15 ML NEB 3 ML IH ×4 (04:32→20:18)
[2023-10-13 04:38] LABS: A. calcoaceticus-baumannii Cpx NOT DETECTED (NOT DETECTE); Bacteroides fragilis NOT DETECTED (NOT DETECTE); Candida albicans NOT DETECTED (NOT DETECTE); Candida auris NOT DETECTED (NOT DETECTE); Candida glabrata NOT DETECTED (NOT DETECTE); Candida krusei NOT DETECTED (NOT DETECTE); Candida parapsilosis NOT DETECTED (NOT DETECTE); Candida tropicalis NOT DETECTED (NOT DETECTE); Cryptococcus neoformans/gattii NOT DETECTED (NOT DETECTE); Enterobacter cloacae complex NOT DETECTED (NOT DETECTE); Enterobacterales NOT DETECTED (NOT DETECTE); Enterococcus faecalis NOT DETECTED (NOT DETECTE); Enterococcus faecium NOT DETECTED (NOT DETECTE); Haemophilus influenzae NOT DETECTED (NOT DETECTE); Klebsiella aerogenes NOT DETECTED (NOT DETECTE); Klebsiella pneumoniae group NOT DETECTED (NOT DETECTE); Listeria monocytogenes NOT DETECTED (NOT DETECTE); Neisseria meningitidis NOT DETECTED (NOT DETECTE); Proteus spp. NOT DETECTED (NOT DETECTE); Pseudomonas aeruginosa NOT DETECTED (NOT DETECTE); Salmonella spp. NOT DETECTED (NOT DETECTE); Serratia marcescens NOT DETECTED (NOT DETECTE); Staphylococcus epidermidis NOT DETECTED (NOT DETECTE); Staphylococcus lugdunensis NOT DETECTED (NOT DETECTE); Stenotrophomonas maltophilia NOT DETECTED (NOT DETECTE); Streptococcus agalactiae NOT DETECTED (NOT DETECTE); Streptococcus pneumoniae NOT DETECTED (NOT DETECTE); Streptococcus pyogenes NOT DETECTED (NOT DETECTE); Streptococcus spp. NOT DETECTED (NOT DETECTE)
[2023-10-13 05:52] LABS: Basophils Percent Auto 0.2 % (0.2-2.0); Eosinophils Percent Auto 0.1 % (0.9-7.0); Hematocrit 34.3 % (42.0-54.0); Hemoglobin 11.1 g/dL (14.0-18.0); Immature Granulocytes Abs Auto 0.17 10^3/uL (0.00-0.03); Immature Granulocytes Pct Auto 1.1 % (0.0-0.5); Lymphocytes Absolute Auto 1.3 10^3/uL (1.2-3.8); Lymphocytes Percent Auto 8.4 % (20.5-60.0); Mean Corpuscular HGB Conc 32.4 g/dL (29.9-35.2); Mean Corpuscular Hemoglobin 30.8 pg (25.9-34.0); Mean Corpuscular Volume 95.3 fL (80.0-94.0); Mean Platelet Volume 11.2 fL (9.5-13.5); Monocytes Absolute Auto 1.1 10^3/uL (0.3-0.8); Monocytes Percent Auto 6.8 % (1.7-12.0); Neutrophils Absolute Auto 13.2 10^3/uL (1.4-6.5); Neutrophils Percent Auto 83.4 % (43.0-75.0); Platelet Count 172 10^3/uL (150-450); Red Cell Distribution Width 14.9 % (11.0-15.0); White Blood Count 15.8 10^3/uL (4.0-11.0)
[2023-10-13 05:54] LABS: Source L ARM; Staphylococcus spp. DETECTED (NOT DETECTE); mecA/C and MREJ (MRSA) DETECTED (NOT DETECTE)
[2023-10-13 06:37] LABS: Alanine Aminotransferase 50 U/L (16-63); Albumin Globulin Ratio 0.5; Albumin Level 2.5 g/dL (3.4-5.0); Alkaline Phosphatase 62 U/L (46-116); Anion Gap 14.5; Aspartate Amino Transferase 39 U/L (15-37); BUN Creatinine Ratio 23.2; Bilirubin Total 0.5 mg/dL (0.2-1.0); Calcium 9.3 mg/dL (8.5-10.1); Carbon Dioxide 32.5 mmol/L (21.0-32.0); Chloride 101 mmol/L (98-107); Estimated GFR (African America 32 (>=60); Estimated GFR (Non-African Ame 26 (>=60); Globulin 4.7 g/dL; Glucose 111 mg/dL (74-106); Magnesium 1.8 mg/dL (1.8-2.4); Sodium 144 mmol/L (136-145); Total Protein 7.2 g/dL (6.4-8.2)
[2023-10-13] MEDS: PANTOPRAZOLE SODIUM 40 MG VIAL IV ×2 (07:03→18:02)
[2023-10-13 07:37] LABS: Glucometer 150 mg/dL (74-106)
[2023-10-13] MEDS: CITALOPRAM HYDROBROMIDE 20 MG TABLET PO (08:08)
[2023-10-13] MEDS: INSULIN ASPART 300 UNIT/3 ML PEN SUBQ ×4 (08:08→21:11)
[2023-10-13] MEDS: PROSTAT 15 GM PROTEIN/100 CAL 30 ML LIQUID PACKET PO ×2 (08:08→21:10)
[2023-10-13] MEDS: MAGNESIUM OXIDE 400 MG TABLET PO (08:08)
[2023-10-13] MEDS: ENSURE HP 237 ML LIQUID PO ×2 (08:08→21:10)
[2023-10-13] MEDS: MIDODRINE HCL 5 MG TABLET 10 MG PO ×2 (08:08→16:15)
[2023-10-13] MEDS: INSULIN DETEMIR 300 UNIT/3 ML INSULN.PEN 30 UNIT SUBQ (08:09)
--- NOTE | 2023-10-13 10:42 | P.PN_ITS ---
Progress Note: Subjective Subjective Interval history: Still with significant sounding cough, breathing seems to be pretty steady though. Patient up in chair. Seems tired but no other specific complaints Exam Constitutional Vital Signs, click to edit/add: Last Vital Signs Temp 99.1 F 10/13/23 07:45 Pulse 82 10/13/23 10:00 Resp 19 10/13/23 07:40 BP 89/69 10/13/23 07:26 Pulse Ox 93 L 10/13/23 07:40 O2 Del Method Nasal Cannula 10/13/23 10:17 O2 Flow Rate 3 10/13/23 10:17 FiO2 35 10/13/23 04:32 Documenting provider has reviewed patient's vital signs: yes Common normals: no apparent distress Chest Common normals: inspection of chest normal Respiratory Common normals: normal respiratory effort and no retractions Auscultation: rales (mimally in bases - much improved), rhonchi and diminished lung sounds Cardio Common normals: regular rhythm; irregular rate Rate: tachycardic GI Common normals: negative for Normal to inspection, nondistended, normoactive bowel sounds present (Suprapubic catheter in place) Extremity Common normals: normal to inspection (1 + edema) Neuro Common normals: not oriented x3 Sensorium/orientation: not awake (Patient exhausted, hard to arouse. Likely secondary to all of the above) Progress Note: Objective Labs Labs: Short CBC 10/13/23 Range/Units 05:20 WBC 15.8 H (4.0-11.0) 10^3/uL Hgb 11.1 L (14.0-18.0) g/dL Hct 34.3 L (42.0-54.0) % Plt Count 172 (150-450) 10^3/uL BMP 10/13/23 05:20 Sodium 144 Potassium 4.0 Chloride 101 Carbon Dioxide 32.5 H BUN 55.0 H Creatinine 2.37 H Glucose 111 H Calcium 9.3 Liver Function 10/13/23 Range/Units 05:20 Total Bilirubin 0.5 (0.2-1.0) mg/dL AST 39 H (15-37) U/L ALT 50 (16-63) U/L Alkaline Phosphatase 62 (46-116) U/L Albumin 2.5 L (3.4-5.0) g/dL Progress Note: A&P Assessment and Plan (1) Septic shock: Plan Severe hypotension, tachycardia, respiratory distress with acute hypoxic respiratory failure requiring Vapotherm, positive procalcitonin, acute renal failure, altered mental status resulting in multisystem organ failure(Brain, kidney, cardiac) - in the sepsis with septic shock secondary to healthcare acquired pneumonia, also possible sources UTI has been treated as an outpatient for Pseudomonas-enerococcus in his urine. Urine cultures with a similar sensitivity pattern, will change IV antibiotics based on elevated white blood cell count today. Fluid overload secondary to fluid resuscitation from the above -diuresed well, down 5 l. Hold off on further diuretics today. Blood pressure somewhat low Hyponatremia and acute kidney injury secondary to dehydration secondary to the above-stable Sepsis with septic shock-secondary to the above-off blood pressure support. Adjusting antibiotic regime based on sensitivities from urine and the fact that white blood cell count is creeping back up, no fevers but patient is unlikely to mount a fever or Multifocal pneumonia secondary to healthcare acquired pneumonia-trying to obtain sputum culture-consider repeat chest x-ray, did have troponin back on oxygen, while sleeping. Acute PPN-[id number]-[id number] on previous culture-adjusting antibiotics as above Elevated BNP with a history of LVH-possible demand ischemia resulting in heart failure-echocardiogram was good, diuresed well, BNP still elevated today but suspect slow response secondary to increasing BUN/creatinine, will repeat in a.m., no further diuretics Hyperglycemia-monitor daily, insulin-dependent diabetic-adjust insulin sliding scale Iron deficient anemia as well as anemia of chronic kidney disease-monitor daily Poor IV access-has been very difficult to obtain IVs in the past. Will place PICC line. Severe protein calorie malnutrition-we will add diet supplements. Sacral decubitus-consult to wound therapy Thrombocytopenia-likely due to stress reaction from the above-monitor daily.- Slightly improved Acute blood loss anemia with a 5 g drop in hemoglobin. Will transfuse 1 unit. Repeat CBC posttransfusion. Hypomagnesemia-supplement With severity of illness is outlined above and intensity of service patient is admitted to the intensive care unit as an inpatient-patient likely here 2-3 more days although has made great progress in the first 24 hours Urinary Catheter Management Urinary Catheter Management Suprapubic: Cath placed during this visit: no
[2023-10-13] MEDS: LINEZOLID IN DEXTROSE 5% 600 MG/300 ML PIGGYBACK 300 MG IV ×2 (11:13→22:26)
[2023-10-13 11:17] LABS: Glucometer 310 mg/dL (74-106)
--- NOTE | 2023-10-13 11:56 | PT.DAILY ---
Physical Therapy Daily Note PT Daily Note/Assess Start: 10/11/23 13:39 Freq: Status: Active Protocol: Document 10/13/23 09:25 HARRIS (Rec: 10/13/23 11:56 HARRIS [id number]) Physical Therapy Daily Note/Assessment Time In/Time Out Time In 09:26 Time Out 09:44 Subjective Subjective Patient is less argumentative today, but doubtful he can do anything. With lots of encouraging and motivation agrees to participate. Therapeutic Activity Time Therapeutic Activity Minutes (minutes) 18 Therapeutic Activity Units 1 Therapeutic Activity Treatment Therapeutic Activity Comments Supine to sit min assist with verbal cues as well. Once sitting EOB patient can maintain unsupported sitting 3 -4 min without LOB or lean. Is very talkative, and unsure if he can go to the chair. Encouraged patient that he can do it. Sit to stand at RW min assist x2. Gait 8 steps from bed to chair with min assist x2. Total Physical Therapy Time Total Therapy Minutes 18 Total Physical Therapy Units 1 Summary Daily Note Summary Patient continues to progress with bed mobility, and transfers. Patient is doubtful of his own ability and requires lost of encouragement on how well he is doing. Would recommend SNF at [facility] to continue to build strength and promote safe transfers and ambulation.
[2023-10-13] MEDS: CEFTAZIDIME 2,000 MG in 0.9 % SODIUM CHLORIDE 100 ML 200 MG IV (12:15)
[2023-10-13] MEDS: ALPRAZOLAM 1 MG TABLET PO ×2 (13:24→21:10)
[2023-10-13 16:18] LABS: Glucometer 199 mg/dL (74-106)
[2023-10-13 21:13] LABS: Glucometer 162 mg/dL (74-106)
[2023-10-14] VITALS (121 sets, daily range): BP systolic 94–138; BP diastolic 57–93; PULSE 71–107; RESP 13–32; TEMP 36.6–37.2; O2SAT 83–100
[2023-10-14] MEDS: SODIUM CHLORIDE 3% INHALATION 15 ML NEB 3 ML IH ×4 (04:30→20:32)
[2023-10-14] MEDS: IPRATROPIUM/ALBUTEROL SULFATE 3 ML AMPUL.NEB IH ×4 (04:30→20:32)
[2023-10-14 05:24] LABS: Basophils Absolute Auto 0.1 10^3/uL (0.0-0.1); Basophils Percent Auto 0.3 % (0.2-2.0); Eosinophils Absolute Auto 0.1 10^3/uL (0.0-0.7); Eosinophils Percent Auto 0.5 % (0.9-7.0); Hematocrit 36.5 % (42.0-54.0); Immature Granulocytes Abs Auto 0.22 10^3/uL (0.00-0.03); Immature Granulocytes Pct Auto 1.3 % (0.0-0.5); Lymphocytes Absolute Auto 1.3 10^3/uL (1.2-3.8); Lymphocytes Percent Auto 7.5 % (20.5-60.0); Mean Corpuscular HGB Conc 32.9 g/dL (29.9-35.2); Mean Corpuscular Hemoglobin 31.1 pg (25.9-34.0); Mean Corpuscular Volume 94.6 fL (80.0-94.0); Mean Platelet Volume 11.4 fL (9.5-13.5); Monocytes Absolute Auto 1.4 10^3/uL (0.3-0.8); Monocytes Percent Auto 8.3 % (1.7-12.0); Neutrophils Absolute Auto 13.8 10^3/uL (1.4-6.5); Neutrophils Percent Auto 82.1 % (43.0-75.0); Platelet Count 161 10^3/uL (150-450); Red Blood Count 3.86 10^6/uL (4.70-6.10); Red Cell Distribution Width 14.6 % (11.0-15.0); White Blood Count 16.8 10^3/uL (4.0-11.0)
[2023-10-14 06:00] LABS: Alanine Aminotransferase 50 U/L (16-63); Albumin Globulin Ratio 0.5; Albumin Level 2.2 g/dL (3.4-5.0); Alkaline Phosphatase 62 U/L (46-116); Anion Gap 13.9; Aspartate Amino Transferase 25 U/L (15-37); BUN Creatinine Ratio 28.9; Bilirubin Total 0.5 mg/dL (0.2-1.0); Calcium 9.3 mg/dL (8.5-10.1); Carbon Dioxide 30.4 mmol/L (21.0-32.0); Chloride 96 mmol/L (98-107); Estimated GFR (African America 34 (>=60); Estimated GFR (Non-African Ame 28 (>=60); Globulin 4.5 g/dL; Glucose 221 mg/dL (74-106); Magnesium 1.6 mg/dL (1.8-2.4); Potassium 4.3 mmol/L (3.5-5.1); Sodium 136 mmol/L (136-145); Total Protein 6.7 g/dL (6.4-8.2)
[2023-10-14] MEDS: ALPRAZOLAM 1 MG TABLET PO ×2 (06:06→21:05)
[2023-10-14] MEDS: PANTOPRAZOLE SODIUM 40 MG VIAL IV ×2 (06:07→18:18)
[2023-10-14 07:17] LABS: Glucometer 283 mg/dL (74-106)
[2023-10-14] MEDS: MAGNESIUM OXIDE 400 MG TABLET PO ×2 (08:12→21:05)
[2023-10-14] MEDS: ENSURE HP 237 ML LIQUID PO ×2 (08:13→21:05)
[2023-10-14] MEDS: PROSTAT 15 GM PROTEIN/100 CAL 30 ML LIQUID PACKET PO ×2 (08:13→21:05)
[2023-10-14] MEDS: MIDODRINE HCL 5 MG TABLET 10 MG PO ×2 (08:13→16:49)
[2023-10-14] MEDS: INSULIN DETEMIR 300 UNIT/3 ML INSULN.PEN 20 UNIT SUBQ ×2 (08:13→22:28)
[2023-10-14] MEDS: INSULIN ASPART 300 UNIT/3 ML PEN SUBQ ×3 (08:14→22:29)
--- NOTE | 2023-10-14 08:33 | PM.PN ---
Progress Note: Subjective Subjective Interval history: Patient is sleeping when I arrived, awakens easily, answers questions appropriately. Still with significant severe cough. Dyspnea with any movement. Somewhat better strength quiroga was able to sit up in the chair for 3 to 4 hours. Exam Constitutional Vital Signs, click to edit/add: Last Vital Signs Temp 98.7 F 10/14/23 07:20 Pulse 105 H 10/14/23 07:20 Resp 22 10/14/23 07:20 BP 109/57 10/14/23 07:16 Pulse Ox 91 L 10/14/23 07:20 O2 Del Method Nasal Cannula 10/14/23 07:20 O2 Flow Rate 3 10/14/23 07:20 FiO2 35 10/14/23 00:00 Documenting provider has reviewed patient's vital signs: yes Common normals: no apparent distress Chest Common normals: inspection of chest normal Respiratory Common normals: normal respiratory effort and no retractions Auscultation: rales (mimally in bases - much improved from previous), rhonchi and diminished lung sounds Cardio Common normals: regular rhythm; irregular rate Rate: tachycardic GI Common normals: negative for Normal to inspection, nondistended, normoactive bowel sounds present (Suprapubic catheter in place) Extremity Common normals: normal to inspection (1 + edema) Neuro Common normals: not oriented x3 Sensorium/orientation: not awake (Patient exhausted, hard to arouse. Likely secondary to all of the above) Progress Note: Objective Labs Labs: Short CBC 10/14/23 Range/Units 04:13 WBC 16.8 H (4.0-11.0) 10^3/uL Hgb 12.0 L (14.0-18.0) g/dL Hct 36.5 L (42.0-54.0) % Plt Count 161 (150-450) 10^3/uL BMP 10/14/23 04:13 Sodium 136 Potassium 4.3 Chloride 96 L Carbon Dioxide 30.4 BUN 65.0 H Creatinine 2.25 H Glucose 221 H Calcium 9.3 Liver Function 10/14/23 Range/Units 04:13 Total Bilirubin 0.5 (0.2-1.0) mg/dL AST 25 (15-37) U/L ALT 50 (16-63) U/L Alkaline Phosphatase 62 (46-116) U/L Albumin 2.2 L (3.4-5.0) g/dL Progress Note: A&P Assessment and Plan (1) Septic shock: Urinary Catheter Management Urinary Catheter Management Suprapubic: Cath placed during this visit: no
[2023-10-14] MEDS: LINEZOLID IN DEXTROSE 5% 600 MG/300 ML PIGGYBACK 300 MG IV ×2 (11:10→22:27)
[2023-10-14 11:16] LABS: Glucometer 178 mg/dL (74-106)
[2023-10-14] MEDS: CEFTAZIDIME 2,000 MG in 0.9 % SODIUM CHLORIDE 100 ML 200 MG IV (12:15)
[2023-10-14 16:52] LABS: Glucometer 136 mg/dL (74-106)
[2023-10-14 21:10] LABS: Glucometer 187 mg/dL (74-106)
[2023-10-15] VITALS (123 sets, daily range): BP systolic 104–117; BP diastolic 62–69; PULSE 50–125; RESP 14–34; TEMP 36.6–36.7; O2SAT 85–100
[2023-10-15 03:55] LABS: Glucometer 212 mg/dL (74-106)
[2023-10-15] MEDS: SODIUM CHLORIDE 3% INHALATION 15 ML NEB 3 ML IH ×4 (04:34→20:06)
[2023-10-15] MEDS: IPRATROPIUM/ALBUTEROL SULFATE 3 ML AMPUL.NEB IH ×4 (04:34→20:06)
[2023-10-15 04:48] LABS: Basophils Percent Auto 0.2 % (0.2-2.0); Eosinophils Absolute Auto 0.2 10^3/uL (0.0-0.7); Hemoglobin 11.3 g/dL (14.0-18.0); Immature Granulocytes Abs Auto 0.18 10^3/uL (0.00-0.03); Immature Granulocytes Pct Auto 1.1 % (0.0-0.5); Lymphocytes Absolute Auto 1.3 10^3/uL (1.2-3.8); Lymphocytes Percent Auto 8.2 % (20.5-60.0); Mean Corpuscular HGB Conc 32.3 g/dL (29.9-35.2); Mean Corpuscular Hemoglobin 30.9 pg (25.9-34.0); Mean Corpuscular Volume 95.6 fL (80.0-94.0); Mean Platelet Volume 11.3 fL (9.5-13.5); Neutrophils Absolute Auto 13.1 10^3/uL (1.4-6.5); Neutrophils Percent Auto 83.5 % (43.0-75.0); Platelet Count 179 10^3/uL (150-450); Red Blood Count 3.66 10^6/uL (4.70-6.10); Red Cell Distribution Width 14.5 % (11.0-15.0); White Blood Count 15.7 10^3/uL (4.0-11.0)
[2023-10-15 05:38] LABS: Alanine Aminotransferase 45 U/L (16-63); Albumin Globulin Ratio 0.4; Alkaline Phosphatase 71 U/L (46-116); Anion Gap 10.1; Aspartate Amino Transferase 23 U/L (15-37); BUN Creatinine Ratio 26.8; Bilirubin Total 0.5 mg/dL (0.2-1.0); Calcium 9.6 mg/dL (8.5-10.1); Carbon Dioxide 31.9 mmol/L (21.0-32.0); Chloride 96 mmol/L (98-107); Estimated GFR (African America 34 (>=60); Estimated GFR (Non-African Ame 28 (>=60); Globulin 4.9 g/dL; Glucose 213 mg/dL (74-106); Magnesium 1.9 mg/dL (1.8-2.4); Sodium 134 mmol/L (136-145); Total Protein 6.9 g/dL (6.4-8.2)
[2023-10-15] MEDS: PANTOPRAZOLE SODIUM 40 MG VIAL IV ×2 (06:20→18:02)
[2023-10-15 07:22] LABS: Glucometer 254 mg/dL (74-106)
[2023-10-15] MEDS: INSULIN DETEMIR 300 UNIT/3 ML INSULN.PEN 20 UNIT SUBQ ×2 (08:45→21:13)
[2023-10-15] MEDS: INSULIN ASPART 300 UNIT/3 ML PEN SUBQ ×3 (08:46→21:11)
[2023-10-15] MEDS: MIDODRINE HCL 5 MG TABLET 10 MG PO ×2 (08:47→17:32)
[2023-10-15] MEDS: PROSTAT 15 GM PROTEIN/100 CAL 30 ML LIQUID PACKET PO ×2 (08:47→20:49)
[2023-10-15] MEDS: ENSURE HP 237 ML LIQUID PO ×2 (08:47→20:49)
[2023-10-15] MEDS: MAGNESIUM OXIDE 400 MG TABLET PO ×2 (08:47→20:49)
[2023-10-15] MEDS: LINEZOLID IN DEXTROSE 5% 600 MG/300 ML PIGGYBACK 300 MG IV ×2 (10:23→23:03)
[2023-10-15 11:53] LABS: Glucometer 284 mg/dL (74-106)
--- NOTE | 2023-10-15 13:04 | P.IMPN_ITS ---
Progress Note: A&P Assessment and Plan (1) Septic shock: Assessment and Plan: BP stable now. Due to Pseudomonas/e.feacalsis UTI and MRSA/pseudominas Pneumonia. Repeat Sputum cx on 10/13 growing MRSA and Pseudomonas. Patient was on zyvox and ceftazdime. Ceftadizime d/c (intermediate sensitivity) Added aztroenam for pseudomonas in sputum based on C&S C/w zyvox. (2) Chronic UTI: Assessment and Plan: On zyvox. Switched to Aztreonam. Urine cx positive for pseudomonas and e.fecalis. (3) Chronic kidney disease: Assessment and Plan: CKD 4, baseline cr is about 1.9 Monitor renal function closely. Has mild THOMAS today, started on gently IVF alina because he has very little PO intake. (4) Bilateral pneumonia: Assessment and Plan: Due to MRSA and pseudomonas. Likely has recurrent aspiration. Abx switched today. No resp distress, on 3 L (5) Acute respiratory distress: Assessment and Plan: Comfortable today on 3 L. Abx changed. (6) Adult failure to thrive: Assessment and Plan: Poor PO intake, multiple comorbidities. There is a need for discussed for tube feeding to ensure adequate nutrition for the patient. Will defer to patients PCP for goals of care discussion. (7) Diabetes: Assessment and Plan: On basal/bolus insulin,. FSBS more or less at goal (8) THOMAS (acute kidney injury): Assessment and Plan: started on gentle IVF. Internal Medicine - PN: Subj Subjective Interval history: Seen and examined. Doing well. No overnight events. On 3 L O2. Poor PO intake and not eating much. Exam Constitutional Vital Signs, click to edit/add: Last Vital Signs Temp 98.1 F 10/15/23 09:00 Pulse 85 10/15/23 12:00 Resp 20 10/15/23 09:20 BP 105/62 10/15/23 08:47 Pulse Ox 95 10/15/23 12:00 O2 Del Method Nasal Cannula 10/15/23 10:55 O2 Flow Rate 3 10/15/23 10:55 FiO2 35 10/14/23 00:00 Documenting provider has reviewed patient's vital signs: yes Common normals: no apparent distress General appearance: comfortable, ill appearing and frail appearing Respiratory Common normals: normal respiratory effort Effort & inspection: decreased respiratory effort Auscultation: clear to auscultation bilaterally and diminished lung sounds Cardio Common normals: regular rate, S1 normal heart sound and S2 normal heart sound GI Common normals: Normal to inspection, nondistended, normoactive bowel sounds present Internal Medicine - PN: Obj Da Labs Labs: Laboratory Results - last 24 hr 10/11/23 10/14/23 10/14/23 06:54 16:51 21:09 WBC RBC Hgb Hct MCV MCH MCHC RDW Plt Count MPV Neut % (Auto) Lymph % (Auto) [place] % (Auto) Eos % (Auto) Baso % (Auto) Neut # (Auto) Lymph # (Auto) [place] # (Auto) Eos # (Auto) Baso # (Auto) Abs Immat Gran (auto) Imm/Tot Granulo (auto) Sodium Potassium Chloride Carbon Dioxide Anion Gap BUN Creatinine Est GFR ( Amer) Est GFR (Non-Af Amer) BUN/Creatinine Ratio Glucose Calcium Magnesium Total Bilirubin AST ALT Alkaline Phosphatase NT-Pro-B Natriuret Pep Total Protein Albumin Globulin Albumin/Globulin Ratio POC Glucose 136 H 187 H Crossmatch See Detail 10/15/23 10/15/23 10/15/23 03:53 03:55 07:15 WBC 15.7 H RBC 3.66 L Hgb 11.3 L Hct 35.0 L MCV 95.6 H MCH 30.9 MCHC 32.3 RDW 14.5 Plt Count 179 MPV 11.3 Neut % (Auto) 83.5 H Lymph % (Auto) 8.2 L [place] % (Auto) 6.0 Eos % (Auto) 1.0 Baso % (Auto) 0.2 Neut # (Auto) 13.1 H Lymph # (Auto) 1.3 [place] # (Auto) 1.0 H Eos # (Auto) 0.2 Baso # (Auto) 0.0 Abs Immat Gran (auto) 0.18 H Imm/Tot Granulo (auto) 1.1 H Sodium 134 L Potassium 4.0 Chloride 96 L Carbon Dioxide 31.9 Anion Gap 10.1 BUN 60.0 H Creatinine 2.24 H Est GFR ( Amer) 34 L Est GFR (Non-Af Amer) 28 L BUN/Creatinine Ratio 26.8 Glucose 213 H Calcium 9.6 Magnesium 1.9 Total Bilirubin 0.5 AST 23 ALT 45 Alkaline Phosphatase 71 NT-Pro-B Natriuret Pep 3246.0 H* Total Protein 6.9 Albumin 2.0 L Globulin 4.9 Albumin/Globulin Ratio 0.4 POC Glucose 212 H 254 H Crossmatch 10/15/23 11:47 WBC RBC Hgb Hct MCV MCH MCHC RDW Plt Count MPV Neut % (Auto) Lymph % (Auto) [place] % (Auto) Eos % (Auto) Baso % (Auto) Neut # (Auto) Lymph # (Auto) [place] # (Auto) Eos # (Auto) Baso # (Auto) Abs Immat Gran (auto) Imm/Tot Granulo (auto) Sodium Potassium Chloride Carbon Dioxide Anion Gap BUN Creatinine Est GFR ( Amer) Est GFR (Non-Af Amer) BUN/Creatinine Ratio Glucose Calcium Magnesium Total Bilirubin AST ALT Alkaline Phosphatase NT-Pro-B Natriuret Pep Total Protein Albumin Globulin Albumin/Globulin Ratio POC Glucose 284 H Crossmatch Urinary Catheter Management Urinary Catheter Management Suprapubic: Cath placed during this visit: no
[2023-10-15] MEDS: LACTATED RINGER'S SOLUTION 1,000 ML 75 ML IV (13:55)
[2023-10-15] MEDS: ALPRAZOLAM 1 MG TABLET PO (13:55)
[2023-10-15 15:19] LABS: Glucometer 76 mg/dL (74-106)
[2023-10-15 16:00] LABS: Glucometer 83 mg/dL (74-106)
[2023-10-15 17:00] LABS: Occult Blood Positive
[2023-10-15] MEDS: DEXTROSE 50 %-WATER 25 GM/50 ML SYRINGE IV (17:27)
[2023-10-15 17:35] LABS: Glucometer 69 mg/dL (74-106)
[2023-10-15 17:50] LABS: C. Difficile PCR NEGATIVE (NEGATIVE)
[2023-10-15 18:10] LABS: Glucometer 242 mg/dL (74-106)
[2023-10-15 21:06] LABS: Glucometer 270 mg/dL (74-106)
[2023-10-16] VITALS (17 sets, daily range): BP systolic 88–148; BP diastolic 69–83; PULSE 79–101; RESP 19–26; TEMP 36.3–37; O2SAT 90–97
[2023-10-16] MEDS: LACTATED RINGER'S SOLUTION 1,000 ML 75 ML IV (03:58)
[2023-10-16] MEDS: SODIUM CHLORIDE 3% INHALATION 15 ML NEB 3 ML IH ×2 (04:08→10:17)
[2023-10-16] MEDS: IPRATROPIUM/ALBUTEROL SULFATE 3 ML AMPUL.NEB IH ×2 (04:08→10:17)
[2023-10-16 05:28] LABS: Basophils Percent Auto 0.2 % (0.2-2.0); Eosinophils Absolute Auto 0.2 10^3/uL (0.0-0.7); Eosinophils Percent Auto 1.6 % (0.9-7.0); Hematocrit 31.5 % (42.0-54.0); Hemoglobin 10.2 g/dL (14.0-18.0); Immature Granulocytes Pct Auto 0.8 % (0.0-0.5); Lymphocytes Absolute Auto 1.5 10^3/uL (1.2-3.8); Lymphocytes Percent Auto 11.3 % (20.5-60.0); Mean Corpuscular HGB Conc 32.4 g/dL (29.9-35.2); Mean Corpuscular Hemoglobin 31.3 pg (25.9-34.0); Mean Corpuscular Volume 96.6 fL (80.0-94.0); Mean Platelet Volume 11.1 fL (9.5-13.5); Monocytes Absolute Auto 0.6 10^3/uL (0.3-0.8); Monocytes Percent Auto 4.2 % (1.7-12.0); Neutrophils Absolute Auto 10.7 10^3/uL (1.4-6.5); Neutrophils Percent Auto 81.9 % (43.0-75.0); Platelet Count 150 10^3/uL (150-450); Red Blood Count 3.26 10^6/uL (4.70-6.10); Red Cell Distribution Width 14.2 % (11.0-15.0); White Blood Count 13.1 10^3/uL (4.0-11.0)
[2023-10-16 05:49] LABS: Alanine Aminotransferase 43 U/L (16-63); Albumin Globulin Ratio 0.4; Albumin Level 1.6 g/dL (3.4-5.0); Alkaline Phosphatase 71 U/L (46-116); Anion Gap 12.6; Aspartate Amino Transferase 28 U/L (15-37); BUN Creatinine Ratio 27.5; Bilirubin Total 0.5 mg/dL (0.2-1.0); Carbon Dioxide 26.6 mmol/L (21.0-32.0); Chloride 97 mmol/L (98-107); Estimated GFR (African America 43 (>=60); Estimated GFR (Non-African Ame 36 (>=60); Globulin 4.3 g/dL; Glucose 281 mg/dL (74-106); Magnesium 1.5 mg/dL (1.8-2.4); Potassium 4.2 mmol/L (3.5-5.1); Sodium 132 mmol/L (136-145); Total Protein 5.9 g/dL (6.4-8.2)
[2023-10-16] MEDS: PANTOPRAZOLE SODIUM 40 MG VIAL IV (06:40)
[2023-10-16] MEDS: INSULIN ASPART 300 UNIT/3 ML PEN SUBQ (07:39)
[2023-10-16 07:43] LABS: Glucometer 350 mg/dL (74-106)
[2023-10-16] MEDS: MIDODRINE HCL 5 MG TABLET 10 MG PO (07:59)
[2023-10-16] MEDS: MAGNESIUM OXIDE 400 MG TABLET PO (08:00)
[2023-10-16] MEDS: PROSTAT 15 GM PROTEIN/100 CAL 30 ML LIQUID PACKET PO (08:00)
[2023-10-16] MEDS: INSULIN DETEMIR 300 UNIT/3 ML INSULN.PEN 20 UNIT SUBQ (08:00)
[2023-10-16] MEDS: ENSURE HP 237 ML LIQUID PO (08:00)
--- NOTE | 2023-10-16 09:07 | XR_ITS ---
The [address] [address] Patient Name: RALPH GARG MRN: [id number] date: 1940 Sex: M Assigned Patient Location: ICU Current Patient Location: ICU Accession/Order Number: [id number] Exam Date: 10/16/2023 09:20 Report Date: 10/16/2023 09:52 At the request of: FARZAD DODSON Procedure: XR chest 1V EXAMINATION: XR chest 1V HISTORY: pneumonia follow up COMPARISON: XR chest 10/10/2023 FINDINGS: LUNGS: Underexpanded lungs with moderate strandy and patchy opacities within left midlung and left lung base. VASCULATURE: No increased pulmonary vasculature. PLEURA: No pneumothorax, effusion, or pleural thickening. CARDIAC: No cardiomegaly or cardiac silhouette abnormality. MEDIASTINUM: No visible mass or adenopathy. BONES: No fracture or visible bone lesion. OTHER: Stable cardiac pacer. Right PICC line with tip near cavoatrial junction. XR/XR chest 1V IMPRESSION: 1. Low lung volume examination with slight increase in moderate multifocal infiltrates/pneumonia. Electronically authenticated by: VALENTÍN ZIMMERMAN Date: 10/16/2023 09:52
--- NOTE | 2023-10-16 09:22 | P.DS_ITS ---
DS: Providers Provider Date of admission: 10/10/23 13:28 Primary care physician: Seb Walton MD Consults: 10/10/23 13:24 Consult to Pulmonology Routine Consulting Provider: Joey Cook Reason for consultation: Sepsis Has provider been notified: No 10/10/23 13:28 Occupational Therapy Eval and Treat Routine Reason for consultation: Only if needed for Rehab Has provider been notified: No Physical Therapy Eval and Treat Routine Reason for consultation: Eval and Treat Has provider been notified: No 10/11/23 07:50 Consult to Wound Care Routine Consulting Provider: Hu Lynn Reason for consultation: sacral Has provider been notified: No DS: Diagnosis Discharge Diagnosis (1) Septic shock: (2) Chronic UTI: (3) Chronic kidney disease: (4) Bilateral pneumonia: (5) Acute respiratory distress: (6) Adult failure to thrive: (7) Diabetes: (8) THOMAS (acute kidney injury): Plan Severe hypotension, tachycardia, respiratory distress with acute hypoxic respiratory failure requiring Vapotherm, positive procalcitonin, acute renal failure, altered mental status resulting in multisystem organ failure(Brain, kidney, cardiac) - in the sepsis with septic shock secondary to healthcare acquired pneumonia, also possible sources UTI has been treated as an outpatient for Pseudomonas-enerococcus in his urine. Fluid overload secondary to fluid resuscitation from the above Hyponatremia and acute kidney injury secondary to dehydration secondary to the above Sepsis with septic shock-secondary to the above Multifocal pneumonia secondary to healthcare acquired pneumonia -due to staphylococcal aureus and Pseudomonas aeruginosa and Lida albicans Acute XVQ-Byynivldtgs-Kcehbneqtpoz Elevated BNP with a history of LVH Insulin-dependent diabetes mellitus with diabetic neuropathy Iron deficient anemia as well as anemia of chronic kidney disease Poor IV access Severe protein calorie malnutrition Sacral decubitus stage I Thrombocytopenia Acute blood loss anemia with a 5 g drop in hemoglobin Hypomagnesemia Chronic hypotension History of atrial fibrillation DS: Summary Hospital Course Hospital Course: Patient presented from the shelter with Severe hypotension, tachycardia, respiratory distress with acute hypoxic respiratory failure requiring Vapotherm, positive procalcitonin, acute renal failure, altered mental status resulting in multisystem organ failure(Brain, kidney, cardiac) - in the sepsis with septic shock secondary to healthcare acquired pneumonia, also possible sources UTI has been treated as an outpatient for Pseudomonas-enerococcus in his urine. Transferred to the intensive care unit, consult to pulmonology as patient condition deteriorated fairly quickly and suspected he was going need to be placed on a ventilator. However he did recover without needing ventilator support. Been a slow steady improvement daily. Sputum cultures did come back yesterday is positive for Staphylococcus aureus, Pseudomonas aeruginosa and Lida albicans. Antibiotics were adjusted yesterday. Also still has the Pseudomonas and Enterococcus in his urine. Based on sensitivity pattern on linezolid and aztreonam would cover all 3 infections with addition of Diflucan for the fungal infection. Discussed with patient today and he indicated with the nurse present in the room that he would prefer to be DNR-cc-A. Paperwork completed for that. Labs are overall improving. At this point he can be stable for discharge to shelter if shelter able to accept patient with IV antibiotics at the twice daily dosing. Medications see list. I will follow patient in shelter. Time Spent with Patient Time attestation: Total time spent providing and/or coordinating discharge services: Exam Constitutional Vital Signs, click to edit/add: Last Vital Signs Temp 97.7 F 10/16/23 07:45 Pulse 91 H 10/16/23 08:00 Resp 21 10/16/23 07:40 BP 88/69 L 10/16/23 07:36 Pulse Ox 94 L 10/16/23 07:40 O2 Del Method Nasal Cannula 10/16/23 07:45 O2 Flow Rate 2 10/16/23 07:45 FiO2 35 10/14/23 00:00 Documenting provider has reviewed patient's vital signs: yes Common normals: no apparent distress Chest Common normals: inspection of chest normal Respiratory Common normals: normal respiratory effort and no retractions Auscultation: rales (mimally in bases - much improved from previous), rhonchi and diminished lung sounds Cardio Common normals: regular rhythm; irregular rate Rate: tachycardic GI Common normals: negative for Normal to inspection, nondistended, normoactive bowel sounds present (Suprapubic catheter in place) Extremity Common normals: normal to inspection (1 + edema) Neuro Common normals: not oriented x3 Sensorium/orientation: not awake (Patient exhausted, hard to arouse. Likely secondary to all of the above) DS: Data Data Completed and Pending Labs on day of discharge: Labs from last 24 hours 10/16/23 10/16/23 10/15/23 07:36 05:00 20:56 WBC 13.1 H RBC 3.26 L Hgb 10.2 L Hct 31.5 L MCV 96.6 H MCH 31.3 MCHC 32.4 RDW 14.2 Plt Count 150 MPV 11.1 Neut % (Auto) 81.9 H Lymph % (Auto) 11.3 L [place] % (Auto) 4.2 Eos % (Auto) 1.6 Baso % (Auto) 0.2 Neut # (Auto) 10.7 H Lymph # (Auto) 1.5 [place] # (Auto) 0.6 Eos # (Auto) 0.2 Baso # (Auto) 0.0 Abs Immat Gran (auto) 0.10 H Imm/Tot Granulo (auto) 0.8 H Sodium 132 L Potassium 4.2 Chloride 97 L Carbon Dioxide 26.6 Anion Gap 12.6 BUN 50.0 H Creatinine 1.82 H Est GFR ( Amer) 43 L Est GFR (Non-Af Amer) 36 L BUN/Creatinine Ratio 27.5 Glucose 281 H Calcium 9.0 Magnesium 1.5 L Total Bilirubin 0.5 AST 28 ALT 43 Alkaline Phosphatase 71 NT-Pro-B Natriuret Pep 1803.0 H* Total Protein 5.9 L Albumin 1.6 L Globulin 4.3 Albumin/Globulin Ratio 0.4 Stool Occult Blood C. difficile Toxin PCR POC Glucose 350 H 270 H 10/15/23 10/15/23 10/15/23 18:05 17:24 16:35 WBC RBC Hgb Hct MCV MCH MCHC RDW Plt Count MPV Neut % (Auto) Lymph % (Auto) [place] % (Auto) Eos % (Auto) Baso % (Auto) Neut # (Auto) Lymph # (Auto) [place] # (Auto) Eos # (Auto) Baso # (Auto) Abs Immat Gran (auto) Imm/Tot Granulo (auto) Sodium Potassium Chloride Carbon Dioxide Anion Gap BUN Creatinine Est GFR ( Amer) Est GFR (Non-Af Amer) BUN/Creatinine Ratio Glucose Calcium Magnesium Total Bilirubin AST ALT Alkaline Phosphatase NT-Pro-B Natriuret Pep Total Protein Albumin Globulin Albumin/Globulin Ratio Stool Occult Blood Positive A C. difficile Toxin PCR Negative POC Glucose 242 H 69 L 10/15/23 10/15/23 10/15/23 15:57 15:16 11:47 WBC RBC Hgb Hct MCV MCH MCHC RDW Plt Count MPV Neut % (Auto) Lymph % (Auto) [place] % (Auto) Eos % (Auto) Baso % (Auto) Neut # (Auto) Lymph # (Auto) [place] # (Auto) Eos # (Auto) Baso # (Auto) Abs Immat Gran (auto) Imm/Tot Granulo (auto) Sodium Potassium Chloride Carbon Dioxide Anion Gap BUN Creatinine Est GFR ( Amer) Est GFR (Non-Af Amer) BUN/Creatinine Ratio Glucose Calcium Magnesium Total Bilirubin AST ALT Alkaline Phosphatase NT-Pro-B Natriuret Pep Total Protein Albumin Globulin Albumin/Globulin Ratio Stool Occult Blood C. difficile Toxin PCR POC Glucose 83 76 284 H Discharge Plan Discharge Disposition: Xfer SNF Discharge Medications: New Pro-Stat Sugar Free 15 gram- 100 kcal/30 mL Liquid In Packet 1 ea PO BID Qty: 2880 11RF aztreonam 1 gram recon soln 1 g IV Q12H Qty: 28 0RF Aztreonam [Azactam 1000 mg Vial] 1 MG 0.9 % Sodium Chloride [Sodium Chloride 0.9% 50 ml] 50 ML 100 mls/hr IV Q12H Ordered By: Seb Walton MD Last Taken: 10/16/23 04:02 100 mls/hr magnesium oxide 400 mg (241.3 mg magnesium) Tablet 400 mg PO BID Qty: 60 11RF Ensure Active Protein-Muscle Liquid 1 ea PO BID Qty: 5688 11RF linezolid in dextrose 5% 600 mg/300 mL Piggyback 600 mg IV Q12H Qty: 8400 0RF Rx Instructions: 14 days Levemir FlexPen 100 unit/mL (3 mL) Insulin Pen 24 unit subcut BID Qty: 15 11RF fluconazole [Diflucan] 200 mg tablet 200 mg PO DAILY Qty: 14 0RF Continued cilostazol 50 mg tablet 50 mg PO BID fluticasone propionate 50 mcg/actuation spray,suspension 2 spray INTRANASAL Q12H insulin lispro [Humalog KwikPen Insulin] 100 unit/mL insulin pen 1 sliding scale dose SUBCUT TID lovastatin 40 mg tablet 80 mg PO DAILY Patient Comments: takes at supper Rx Instructions: PER RETAIL FILL HX LAST FILLED 07/18/23 #180 FOR A 90 DAY SUPPLY midodrine 10 mg tablet 10 mg PO BID montelukast 10 mg tablet 10 mg PO DAILY Patient Comments: takes at lunch omeprazole 40 mg capsule,delayed release(DR/EC) 40 mg PO DAILY ferrous sulfate [Feosol] 325 mg (65 mg iron) tablet 325 mg PO BID calcium carbonate-vitamin D3 600 mg-5 mcg (200 unit) tablet 2 tab PO DAILY cetirizine [All Day Allergy (cetirizine)] 10 mg tablet 10 mg PO .lunch PRN (Reason: allergy symptoms) multivitamin [Daily Multi-Vitamin] Tablet 1 tab PO DAILY Patient Comments: takes at lunch diphenhydramine-acetaminophen [Tylenol PM Extra Strength] 2 tab PO QPM PRN (Reason: sleep) colesevelam 625 mg tablet 1,250 mg PO DAILY Patient Comments: takes 1250 at breakfast, 625 at lunch and 625 at supper Rx Instructions: breakfast aspirin 325 mg tablet,delayed release (DR/EC) 325 mg PO DAILY tramadol 100 mg tablet 100 mg PO Q6H PRN (Reason: pain) Qty: 120 0RF gabapentin 100 mg capsule 100 mg PO Q8H Qty: 90 3RF ondansetron 4 mg tablet,disintegrating 4 mg translingual Q6H citalopram [Celexa] 20 mg tablet 20 mg PO DAILY alprazolam 1 mg tablet 1 mg PO TID Discontinued insulin glargine [Lantus Solostar U-100 Insulin] 100 unit/mL (3 mL) insulin pen 25 unit SUBCUT DAILY metformin 500 mg tablet extended release 24 hr 1,000 mg PO DAILY metoprolol succinate 25 mg tablet extended release 24 hr 25 mg PO DAILY Patient Comments: takes at supper mirtazapine 45 mg tablet 45 mg PO QPM Lokelma 5 gram powder in packet 5 g PO .4 times weekly Patient Comments: Sunday Forms: Portal Instructions
--- NOTE | 2023-10-16 09:52 | CM.NOTE ---
Pamela called from [facility], update given that pt will need IV antibiotics x 10 days. Pamela will call back if able to get antibiotics today for pt to discharge to [facility].
[2023-10-16] MEDS: LINEZOLID IN DEXTROSE 5% 600 MG/300 ML PIGGYBACK 300 MG IV (10:00)
--- NOTE | 2023-10-16 10:05 | CM.NOTE ---
2nd Important Message From Medicare discussed with pt, pt verbalizes understanding and denies any questions or concerns.
[2023-10-16] MEDS: ACETAMINOPHEN 500 MG TABLET 1000 MG PO (11:39)
[2023-10-16] MEDS: AZTREONAM 1,000 MG in 0.9 % SODIUM CHLORIDE 50 ML 100 MG IV (11:39)
--- NOTE | 2023-10-16 11:39 | CM.NOTE ---
Pt will discharge to [facility] today, IV antibiotics BID and will be available. Notified Dr. Walton and pt's RN. Faxed discharge summary, CRF, and med-list to [facility]. [facility] will pick pt up at 1:00 for transport.
[2023-10-16 11:53] LABS: Glucometer 273 mg/dL (74-106)
--- NOTE | 2023-10-16 13:55 | CM.NOTE ---
Completed online HENS for discharge to [facility].
== END 2023-10-16 13:30 | DRG 871 ==
LOC: ER 10:26 → ICU 13:41
PROVIDERS: Internal Medicine; Admitting Provider Family Medicine; Emergency Provider Emergency Medicine; PCP Family Medicine; Visit Provider Family Medicine
DX: A41.9 Sepsis, unspecified organism (principal); B37.1 Pulmonary candidiasis; E43 Unspecified severe protein-calorie malnutrition; R65.21 Severe sepsis with septic shock; J96.01 Acute respiratory failure with hypoxia; J15.1 Pneumonia due to Pseudomonas; J15.212 Pneumonia due to Methicillin resistant Staphylococcus aureus; N17.9 Acute kidney failure, unspecified; E87.1 Hypo-osmolality and hyponatremia; D62 Acute posthemorrhagic anemia; K92.2 Gastrointestinal hemorrhage, unspecified; N39.0 Urinary tract infection, site not specified; T83.510A Infection and inflammatory reaction due to cystostomy catheter, initial encounter; N18.4 Chronic kidney disease, stage 4 (severe); Y73.8 Miscellaneous gastroenterology and urology devices associated with adverse incidents, not elsewhere classified; Y95 Nosocomial condition; Z66 Do not resuscitate; D69.6 Thrombocytopenia, unspecified; E83.42 Hypomagnesemia; E86.0 Dehydration; E11.22 Type 2 diabetes mellitus with diabetic chronic kidney disease; E11.40 Type 2 diabetes mellitus with diabetic neuropathy, unspecified; N39.46 Mixed incontinence; I12.9 Hypertensive chronic kidney disease with stage 1 through stage 4 chronic kidney disease, or unspecified chronic kidney disease; E11.65 Type 2 diabetes mellitus with hyperglycemia; D63.1 Anemia in chronic kidney disease; Z68.23 Body mass index [BMI] 23.0-23.9, adult; I95.89 Other hypotension; I48.0 Paroxysmal atrial fibrillation; J45.20 Mild intermittent asthma, uncomplicated; L89.151 Pressure ulcer of sacral region, stage 1; E87.70 Fluid overload, unspecified; B95.2 Enterococcus as the cause of diseases classified elsewhere; B96.5 Pseudomonas (aeruginosa) (mallei) (pseudomallei) as the cause of diseases classified elsewhere; Z79.4 Long term (current) use of insulin; Z79.84 Long term (current) use of oral hypoglycemic drugs; Z79.899 Other long term (current) drug therapy; Z81.1 Family history of alcohol abuse and dependence; Z80.1 Family history of malignant neoplasm of trachea, bronchus and lung; Z79.82 Long term (current) use of aspirin; Z88.1 Allergy status to other antibiotic agents; Z88.8 Allergy status to other drugs, medicaments and biological substances; Z87.440 Personal history of urinary (tract) infections; Z86.16 Personal history of COVID-19; Z87.01 Personal history of pneumonia (recurrent); Z95.0 Presence of cardiac pacemaker; Z85.46 Personal history of malignant neoplasm of prostate; Z90.79 Acquired absence of other genital organ(s); Z89.429 Acquired absence of other toe(s), unspecified side
CPT/HCPCS: 36415; 36430; 36569; 36592; 36600; 70450; 71045; 71275; 72125; 80053; 81001; 82306; 82550; 82607; 82746; 82805; 82947; 82948; 83605; 83735; 83880; 84145; 84484; 85007; 85025; 85027; 85610; 86850; 86900; 86901; 87040; 87070; 87086; 87106; 87150; 87186; 87205; 87493; 87635; 87811; 93005; 93306; 94640; 94667; 94668; 94761; 94799; 96361; 96365; 96366; 96367; 96368; 96375; 96376; 97110; 97161; 97165; 97530; 99285; C1887; G0328; G0378; J1100; J1720; J2020; P9016; P9047; Q3014; Q9966

== ENCOUNTER 2023-10-18 22:26 | Observation (INO) | payer MEDICARE, BC, SELFPAY ==
[2023-10-18] VITALS (11 sets, daily range): BP systolic 71–142; BP diastolic 37–96; PULSE 78; RESP 18; TEMP 35.7–35.9; O2SAT 92–93
--- NOTE | 2023-10-18 22:37 | ECG_ITS ---
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: : 1940 Requested By: FARZAD DODSON Order Number: [id number] Reading MD: FARZAD DODSON Measurements Intervals [place] Rate: 69 P: 20 OR: 196 QRS: -74 QRSD: 140 T: 72 QT: 468 QTc: 487 Interpretive Statements 1100 Sinus rhythm 2330 Nonspecific intraventricular conduction block 3332 Anterolateral myocardial infarction, probably recent 3434 Septal myocardial infarction, age undetermined 3631 Inferior myocardial infarction, possibly acute 9150 abnormal ECG Compared to ECG 10/10/2023 10:15:57 ST (T wave) deviation no longer present Myocardial infarct finding still present Electronically Signed On 10-19-2023 6:30:29 EST by FARZAD DODSON
--- NOTE | 2023-10-18 22:37 | XR_ITS ---
The [address] [address] Patient Name: RALPH GARG MRN: [id number] date: 1940 Sex: M Assigned Patient Location: ER Current Patient Location: ER Accession/Order Number: [id number] Exam Date: 10/18/2023 23:05 Report Date: 10/18/2023 23:42 At the request of: AIDEN AVILEZ Procedure: XR chest 1V EXAM: CXR HISTORY: Shortness of breath COMPARISON: 10/16/2023 chest x-ray TECHNIQUE: 1 view chest submitted for review. FINDINGS: Lines and tubes: Right-sided PICC line is seen with tip overlying the SVC. Cardiac pacer is present. Lung volumes are low. The cardiac silhouette measures within normal. Pulmonary vascularity is prominent. Osseous structures are within normal limits for age. XR/XR chest 1V IMPRESSION: Hypoinflation/low lung volumes which can cause secondary accentuation of the lung markings. Electronically authenticated by: COLLIN FRYE Date: 10/18/2023 23:42
--- NOTE | 2023-10-18 22:38 | ED.GENADUL1 ---
HPI - General Adult General Chief complaint: Altered Mental Status Stated complaint: Extreme Weakness/CVA Symptoms Time Seen by Provider: 10/18/23 22:34 History of Present Illness HPI narrative: 83-year-old male presents to the emergency department for being unresponsive and low blood pressure. He is nonverbal and is unable to give any history. He had been discharged from this hospital two days ago and had been diagnosed with sepsis and is on IV antibiotics through PICC line in his right arm. He was recently made DNR [facility]. Initially no further history is obtainable. Related Data Home Medications Medication Instructions Recorded Confirmed calcium carbonate 600 mg-vitamin 2 tab PO DAILY 08/21/23 10/10/23 D3 5 mcg (200 unit) tablet cetirizine 10 mg tablet (All Day 10 mg PO .lunch PRN allergy 08/21/23 10/10/23 Allergy (cetirizine)) symptoms cilostazol 50 mg tablet 50 mg PO BID 08/21/23 10/10/23 diphenhydramine-acetaminophen 2 tab PO QPM PRN sleep 08/21/23 10/10/23 ferrous sulfate 325 mg (65 mg 325 mg PO BID 08/21/23 10/10/23 iron) tablet (Feosol) fluticasone propionate 50 2 spray intranasal Q12H 08/21/23 10/10/23 mcg/actuation nasal spray,suspension insulin lispro 100 unit/mL 1 sliding scale dose subcut TID 08/21/23 10/10/23 subcutaneous pen (Humalog KwikPen (U-100) Insulin) lovastatin 40 mg tablet 80 mg PO DAILY 08/21/23 10/10/23 midodrine 10 mg tablet 10 mg PO BID 08/21/23 10/10/23 montelukast 10 mg tablet 10 mg PO DAILY 08/21/23 10/10/23 multivitamin (Daily Multi-Vitamin 1 tab PO DAILY 08/21/23 10/10/23 tablet) omeprazole 40 mg capsule,delayed 40 mg PO DAILY 08/21/23 10/10/23 release citalopram 20 mg tablet (Celexa) 20 mg PO DAILY 09/06/23 10/10/23 aspirin 325 mg tablet,delayed 325 mg PO DAILY 09/11/23 10/10/23 release colesevelam 625 mg tablet 1,250 mg PO DAILY 09/11/23 10/10/23 alprazolam 1 mg tablet 1 mg PO TID 10/06/23 10/10/23 ondansetron 4 mg disintegrating 4 mg translingual Q6H 10/10/23 10/10/23 tablet Previous Rx's Medication Instructions Recorded gabapentin 100 mg capsule 100 mg PO Q8H #90 caps 09/14/23 tramadol 100 mg tablet 100 mg PO Q6H PRN pain #120 tabs 09/14/23 Aztreonam [Azactam 1000 mg Vial] 1 100 mls/hr IV Q12H 10/16/23 mg amino acids-protein hydrolysate 15 1 ea PO BID #2,880 mL 10/16/23 gram-100 kcal/30 mL oral liquid pkt (Pro-Stat Sugar Free) aztreonam 1 gram solution for 1 g IV Q12H #28 ea 10/16/23 injection fluconazole 200 mg tablet 200 mg PO DAILY #14 tabs 10/16/23 (Diflucan) food supplemt, lactose-reduced 1 ea PO BID #5,688 mL 10/16/23 (Ensure Active Protein-Muscle oral liquid) insulin detemir U-100 100 unit/mL 24 unit (0.24 mL) subcut BID #15 mL 10/16/23 (3 mL) subcutaneous pen (Levemir FlexPen) linezolid in 5% dextrose in water 600 mg IV Q12H #8,400 mL 10/16/23 600 mg/300 mL intravenous piggyback magnesium oxide 400 mg (241.3 mg 400 mg PO BID #60 tabs 10/16/23 magnesium) tablet Allergies Allergy/AdvReac Type Severity Reaction Status Date / Time amoxicillin [From Augmentin] Allergy Diarrhea Verified 10/06/23 19:37 canagliflozin [From Invokana] Allergy Unknown Verified 10/06/23 19:37 clavulanic acid Allergy Diarrhea Verified 10/06/23 19:37 [From Augmentin] hydroxyzine Allergy Anxiety Verified 10/06/23 19:37 levofloxacin Allergy joint pain Verified 10/06/23 19:37 mirabegron [From Myrbetriq] Allergy Unknown Verified 10/06/23 19:37 pioglitazone [From Actos] Allergy Abdominal Verified 10/06/23 19:37 Pain Review of Systems ROS Narrative unobtainable, nonverbal PFSH PFSH Medical History (Updated 10/19/23 @ 00:15 by Dmitry Edward MD) Acute hyperkalemia ?E87.5 - Hyperkalemia (ICD-10) Fall ?W19.XXXA - Unspecified fall, initial encounter (ICD-10) Acute UTI ?N39.0 - Urinary tract infection, site not specified (ICD-10) Weakness ?R53.1 - Weakness (ICD-10) Acute hyperglycemia ?R73.9 - Hyperglycemia, unspecified (ICD-10) Dehydration ?E86.0 - Dehydration (ICD-10) Adult failure to thrive ?R62.7 - Adult failure to thrive (ICD-10) Acute UTI ?N39.0 - Urinary tract infection, site not specified (ICD-10) Hydroureteronephrosis ?N13.30 - Unspecified hydronephrosis (ICD-10) Acute renal injury ?N17.9 - Acute kidney failure, unspecified (ICD-10) History of blood transfusion ?Z92.89 - Personal history of other medical treatment (ICD-10) Anemia ?D64.9 - Anemia, unspecified (ICD-10) Arthritis ?M19.90 - Unspecified osteoarthritis, unspecified site (ICD-10) Asthma ?J45.909 - Unspecified asthma, uncomplicated (ICD-10) Pneumonia ?J18.9 - Pneumonia, unspecified organism (ICD-10) Tremor ?R25.1 - Tremor, unspecified (ICD-10) Amputation toe ?S98.139A - Complete traumatic amputation of one unspecified lesser toe, initial encounter (ICD-10) Abnormal TRUS (transrectal ultrasound), prostate ?R93.89 - Abnormal findings on diagnostic imaging of other specified body structures (ICD-10) Elevated PSA ?R97.20 - Elevated prostate specific antigen [PSA] (ICD-10) Urinary tract infection ?N39.0 - Urinary tract infection, site not specified (ICD-10) Ulcer of gastric fundus ?K25.9 - Gastric ulcer, unspecified as acute or chronic, without hemorrhage or perforation (ICD-10) Seasonal allergic rhinitis ?J30.2 - Other seasonal allergic rhinitis (ICD-10) Kidney stones ?N20.0 - Calculus of kidney (ICD-10) Glucosuria ?R81 - Glycosuria (ICD-10) H/O esophageal reflux ?Z87.19 - Personal history of other diseases of the digestive system (ICD-10) Diabetes ?E11.9 - Type 2 diabetes mellitus without complications (ICD-10) Atrial fibrillation ?I48.91 - Unspecified atrial fibrillation (ICD-10) Mixed incontinence ?N39.46 - Mixed incontinence (ICD-10) Prostate cancer ?C61 - Malignant neoplasm of prostate (ICD-10) Pacemaker ?Z95.0 - Presence of cardiac pacemaker (ICD-10) Surgical History (Updated 08/30/23 @ 11:53 by Gracie Cabral) History of esophagogastroduodenoscopy ?Z98.890 - Other specified postprocedural states (ICD-10) History of colonoscopy ?Z98.890 - Other specified postprocedural states (ICD-10) History of arthroscopy of knee ?Z98.890 - Other specified postprocedural states (ICD-10) History of ear surgery ?Z98.890 - Other specified postprocedural states (ICD-10) H/O hand surgery ?Z98.890 - Other specified postprocedural states (ICD-10) H/O wrist surgery ?Z98.890 - Other specified postprocedural states (ICD-10) H/O cataract extraction ?Z98.49 - Cataract extraction status, unspecified eye (ICD-10) H/O prostate biopsy ?Z98.890 - Other specified postprocedural states (ICD-10) H/O lithotripsy ?Z98.890 - Other specified postprocedural states (ICD-10) H/O radical prostatectomy ?Z90.79 - Acquired absence of other genital organ(s) (ICD-10) Family History (Updated 08/21/23 @ 10:37 by Le Mata NP) Other Alcoholism Family history of lung cancer Social History (Updated 09/11/23 @ 14:56 by Renetta Brewster) Within the past year, how often did you have a drink containing alcohol: never Score interpretation: A score less than 4 is consistent with normal alcohol consumption. Smoking status: Former smoker Non-prescribed substance use: denies use Highest level of school completed/degree received: high school graduate Are you now , , , , never or living with a partner: living with partner Do you think of yourself as: straight/heterosexual Gender Identity: male Exam Narrative Exam Narrative: Nurses note and vital signs reviewed and patient is not hypoxic. General: The patient is nonverbal. He is laying recumbent with his eyes closed and his mouth open. Skin: Warm, dry, no pallor noted. There is no rash noted. Head: Normocephalic, atraumatic Eye: Normal conjunctiva, no drainage Ears, Nose, Mouth, and Throat: oral mucosa is dry. Nares patent. Cardiovascular: Regular Rate and Rhythm Respiratory: the patient is not taking deep breaths. Breath sounds are equal GI: nontender Musculoskeletal: no obvious deformity. PICC line present in right upper arm. Neurological: nonverbal, does not follow commands Psychiatric: and cannot be tested Constitutional Vital Signs, click to edit/add: Last Vital Signs Temp 96.2 F L 10/18/23 22:29 Pulse 78 10/18/23 22:29 Resp 18 10/18/23 22:29 BP 120/56 10/18/23 23:50 Pulse Ox 92 L 10/18/23 22:40 O2 Del Method Nasal Cannula 10/18/23 22:40 O2 Flow Rate 2 10/18/23 22:40 Course Vital Signs Vital signs: Vital Signs Temperature 96.2 F L 10/18/23 22:29 Pulse Rate 78 10/18/23 22:29 Respiratory Rate 18 10/18/23 22:29 Blood Pressure 71/43 L 10/18/23 22:29 Pulse Oximetry 93 L 10/18/23 22:29 Oxygen Delivery Method Nasal Cannula 10/18/23 22:29 Oxygen Delivery Flow Rate 4 10/18/23 22:29 Temperature 96.2 F L 10/18/23 22:29 Pulse Rate 78 10/18/23 22:29 Respiratory Rate 18 10/18/23 22:29 Blood Pressure 120/56 10/18/23 23:50 Pulse Oximetry 92 L 10/18/23 22:40 Oxygen Delivery Method Nasal Cannula 10/18/23 22:40 Oxygen Delivery Flow Rate 2 10/18/23 22:40 Medical Decision Making MDM Narrative Medical decision making narrative: the patient was found to be hypoglycemic and was given D50. Subsequently became awake and was speaking with us and was essentially back to his baseline. He was also found to be mildly hypothermic with a rectal temperature of 96.6. Warm blankets were applied and the rest of his workup is negative. I discussed with the family discharged back to [facility]CF versus observation here and they prefer observation here and I've spoken to the admitting physician and the patient is being admitted for observation. Differential Diagnosis Differential Diagnosis: hypothermia, hypoglycemia, dehydration Medical Records Medical records reviewed: Yes I reviewed the patient's medical records Lab Data Lab results reviewed: Yes I reviewed the patient's lab results Labs: Lab Results 10/18/23 10/18/23 10/18/23 Range/Units 23:00 23:03 23:14 WBC 14.0 H (4.0-11.0) 10^3/uL RBC 3.14 L (4.70-6.10) 10^6/uL Hgb 9.7 L (14.0-18.0) g/dL Hct 32.2 L (42.0-54.0) % MCV 102.5 H (80.0-94.0) fL MCH 30.9 (25.9-34.0) pg MCHC 30.1 (29.9-35.2) g/dL RDW 14.3 (11.0-15.0) % Plt Count 150 (150-450) 10^3/uL MPV 10.5 (9.5-13.5) fL Neut % (Auto) 89.7 H (43.0-75.0) % Lymph % (Auto) 5.2 L (20.5-60.0) % [place] % (Auto) 3.2 (1.7-12.0) % Eos % (Auto) 1.0 (0.9-7.0) % Baso % (Auto) 0.3 (0.2-2.0) % Neut # (Auto) 12.5 H (1.4-6.5) 10^3/uL Lymph # (Auto) 0.7 L (1.2-3.8) 10^3/uL [place] # (Auto) 0.5 (0.3-0.8) 10^3/uL Eos # (Auto) 0.1 (0.0-0.7) 10^3/uL Baso # (Auto) 0.0 (0.0-0.1) 10^3/uL Abs Immat Gran (auto) 0.09 H (0.00-0.03) 10^3/uL Imm/Tot Granulo (auto) 0.6 H (0.0-0.5) % Sodium 136 (136-145) mmol/L Potassium 3.9 (3.5-5.1) mmol/L Chloride 101 (98-107) mmol/L Carbon Dioxide 25.9 (21.0-32.0) mmol/L Anion Gap 13.0 BUN 52.0 H (7.0-18.0) mg/dL Creatinine 2.30 H (0.70-1.30) mg/dL Est GFR ( Amer) 33 L (>=60) Est GFR (Non-Af Amer) 27 L (>=60) BUN/Creatinine Ratio 22.6 Glucose 150 H (74-106) mg/dL Calcium 9.1 (8.5-10.1) mg/dL Urine Color Yellow (YELLOW) Urine Clarity Clear (CLEAR) Urine pH 5.0 (5.0-9.0) Ur Specific [place] >=1.030 A (1.005-1.025) Urine Protein 30 A (NEG/TRACE) mg/dL Urine Glucose (UA) Negative (NEGATIVE) mg/dL Urine Ketones Trace A (NEGATIVE) mg/dL Urine Occult Blood Large A (NEGATIVE) Urine Nitrite Negative (NEGATIVE) Urine Bilirubin Negative (NEGATIVE) Urine Urobilinogen 0.2 (0.2-1.0) EU/dL Ur Leukocyte Esterase Moderate A (NEGATIVE) Urine RBC 0-2 (0-2) #/HPF Urine WBC 5-10 A (NONE SEEN) #/HPF Ur Squamous Epith Cells Rare (NONE/RARE) #/LPF Urine Crystals None seen (None Seen) #/HPF Urine Bacteria Moderate A (NONE SEEN) #/HPF Urine Casts None seen (NONE SEEN) #/LPF Urine Mucus None seen (NONE SEEN) Urine Yeast Seen A (NONE SEEN) POC Glucose 153 H (74-106) mg/dL 10/19/23 Range/Units 00:10 WBC (4.0-11.0) 10^3/uL RBC (4.70-6.10) 10^6/uL Hgb (14.0-18.0) g/dL Hct (42.0-54.0) % MCV (80.0-94.0) fL MCH (25.9-34.0) pg MCHC (29.9-35.2) g/dL RDW (11.0-15.0) % Plt Count (150-450) 10^3/uL MPV (9.5-13.5) fL Neut % (Auto) (43.0-75.0) % Lymph % (Auto) (20.5-60.0) % [place] % (Auto) (1.7-12.0) % Eos % (Auto) (0.9-7.0) % Baso % (Auto) (0.2-2.0) % Neut # (Auto) (1.4-6.5) 10^3/uL Lymph # (Auto) (1.2-3.8) 10^3/uL [place] # (Auto) (0.3-0.8) 10^3/uL Eos # (Auto) (0.0-0.7) 10^3/uL Baso # (Auto) (0.0-0.1) 10^3/uL Abs Immat Gran (auto) (0.00-0.03) 10^3/uL Imm/Tot Granulo (auto) (0.0-0.5) % Sodium (136-145) mmol/L Potassium (3.5-5.1) mmol/L Chloride (98-107) mmol/L Carbon Dioxide (21.0-32.0) mmol/L Anion Gap BUN (7.0-18.0) mg/dL Creatinine (0.70-1.30) mg/dL Est GFR ( Amer) (>=60) Est GFR (Non-Af Amer) (>=60) BUN/Creatinine Ratio Glucose (74-106) mg/dL Calcium (8.5-10.1) mg/dL Urine Color (YELLOW) Urine Clarity (CLEAR) Urine pH (5.0-9.0) Ur Specific [place] (1.005-1.025) Urine Protein (NEG/TRACE) mg/dL Urine Glucose (UA) (NEGATIVE) mg/dL Urine Ketones (NEGATIVE) mg/dL Urine Occult Blood (NEGATIVE) Urine Nitrite (NEGATIVE) Urine Bilirubin (NEGATIVE) Urine Urobilinogen (0.2-1.0) EU/dL Ur Leukocyte Esterase (NEGATIVE) Urine RBC (0-2) #/HPF Urine WBC (NONE SEEN) #/HPF Ur Squamous Epith Cells (NONE/RARE) #/LPF Urine Crystals (None Seen) #/HPF Urine Bacteria (NONE SEEN) #/HPF Urine Casts (NONE SEEN) #/LPF Urine Mucus (NONE SEEN) Urine Yeast (NONE SEEN) POC Glucose 120 H (74-106) mg/dL Imaging Data Chest x-ray: Radiologist's impression: Procedure: XR chest 1V EXAM: CXR HISTORY: Shortness of breath COMPARISON: 10/16/2023 chest x-ray TECHNIQUE: 1 view chest submitted for review. FINDINGS: Lines and tubes: Right-sided PICC line is seen with tip overlying the SVC. Cardiac pacer is present. Lung volumes are low. The cardiac silhouette measures within normal. Pulmonary vascularity is prominent. Osseous structures are within normal limits for age. IMPRESSION: Hypoinflation/low lung volumes which can cause secondary accentuation of the lung markings. Electronically authenticated by: COLLIN FRYE Date: 10/18/2023 23:42 ECG Data Attestation: I personally reviewed and interpreted this ECG as follows: (EKG on my interpretation shows sinus rhythm without acute change) Discharge Plan Discharge Chief Complaint: Altered Mental Status Clinical Impression: Hypoglycemia, Hypothermia Patient Disposition: Admitted as Observation Time of Disposition Decision: 00:14 Condition: Fair Prescriptions / Home Meds: No Action cilostazol 50 mg tablet 50 mg PO BID fluticasone propionate 50 mcg/actuation spray,suspension 2 spray INTRANASAL Q12H insulin lispro [Humalog KwikPen Insulin] 100 unit/mL insulin pen 1 sliding scale dose SUBCUT TID lovastatin 40 mg tablet 80 mg PO DAILY Patient Comments: takes at supper Rx Instructions: PER RETAIL FILL HX LAST FILLED 07/18/23 #180 FOR A 90 DAY SUPPLY midodrine 10 mg tablet 10 mg PO BID montelukast 10 mg tablet 10 mg PO DAILY Patient Comments: takes at lunch omeprazole 40 mg capsule,delayed release(DR/EC) 40 mg PO DAILY ferrous sulfate [Feosol] 325 mg (65 mg iron) tablet 325 mg PO BID calcium carbonate-vitamin D3 600 mg-5 mcg (200 unit) tablet 2 tab PO DAILY cetirizine [All Day Allergy (cetirizine)] 10 mg tablet 10 mg PO .lunch PRN (Reason: allergy symptoms) multivitamin [Daily Multi-Vitamin] Tablet 1 tab PO DAILY Patient Comments: takes at lunch diphenhydramine-acetaminophen [Tylenol PM Extra Strength] 2 tab PO QPM PRN (Reason: sleep) colesevelam 625 mg tablet 1,250 mg PO DAILY Patient Comments: takes 1250 at breakfast, 625 at lunch and 625 at supper Rx Instructions: breakfast aspirin 325 mg tablet,delayed release (DR/EC) 325 mg PO DAILY tramadol 100 mg tablet 100 mg PO Q6H PRN (Reason: pain) Qty: 120 0RF gabapentin 100 mg capsule 100 mg PO Q8H Qty: 90 3RF ondansetron 4 mg tablet,disintegrating 4 mg translingual Q6H Pro-Stat Sugar Free 15 gram- 100 kcal/30 mL Liquid In Packet 1 ea PO BID Qty: 2880 11RF aztreonam 1 gram recon soln 1 g IV Q12H Qty: 28 0RF Aztreonam [Azactam 1000 mg Vial] 1 MG 0.9 % Sodium Chloride [Sodium Chloride 0.9% 50 ml] 50 ML 100 mls/hr IV Q12H Ordered By: Seb Walton MD Last Taken: Unknown magnesium oxide 400 mg (241.3 mg magnesium) Tablet 400 mg PO BID Qty: 60 11RF Ensure Active Protein-Muscle Liquid 1 ea PO BID Qty: 5688 11RF linezolid in dextrose 5% 600 mg/300 mL Piggyback 600 mg IV Q12H Qty: 8400 0RF Rx Instructions: 14 days Levemir FlexPen 100 unit/mL (3 mL) Insulin Pen 24 unit subcut BID Qty: 15 11RF fluconazole [Diflucan] 200 mg tablet 200 mg PO DAILY Qty: 14 0RF citalopram [Celexa] 20 mg tablet 20 mg PO DAILY alprazolam 1 mg tablet 1 mg PO TID Referrals: Seb Walton MD [Primary Care Provider] - 1 week
[2023-10-18] MEDS: 0.9 % SODIUM CHLORIDE 1,000 ML 1000 ML IV (22:40)
[2023-10-18] MEDS: DEXTROSE 50 %-WATER 25 GM/50 ML SYRINGE IV (22:40)
--- OUTSIDE RECORDS SUMMARY | 2023-10-18 22:44 | XMS_ITS | CCD ---
Author Name Unknown Address [address] [facility] [address] [place] [address] Organization [facility] Care Team Providers Care Converting Operator Name Role Phone ILEANA RIMA Referring [...] Unavailable HOY ., DR PANDA Consulting Unavailable [place], DR KORI Murrell Consulting Unavailable NILA ., FARIDA Consulting Unavailable ROLANDA SHIELDS Consulting Unavailable LALA FERRERA Consulting Unavailable HOY ., DR PANDA Primary Care Unavailable NIA ROACH Consulting Unavailable NIA ROACH Attending Unavailable NIA ROACH Admitting Unavailable HOY ., DR PANDA Attending [...] HOY ., DR PANDA Primary Care Unavailable AMRK, NIA Chano Consulting Unavailable MARK, NIA C Attending Unavailable [...] Unavailable HOY, FARZAD M Primary Care Unavailable GINNY HERNANDEZ Attending Unavailable GEORGIE MUNOZ Attending Unavailable FELIX SOTO Attending Unavailable NIA ROACH Attending Unavailable UDAY CASTRO Referring Unavailable UDAY CASTRO Referring Unavailable MOITALIAEL, ELYSE Attending Unavailable NIA ROACH Attending Unavailable MOUKARHYSEL, ELYSE Attending Unavailable GEORGIE MUNOZ Attending Unavailable UDAY CASTRO Referring Unavailable CONTEH, Ozzy Velasquez Attending Unavailable VALENCIA WALSH Attending Unavailable CONTEH, Ozzy Velasquez Attending Unavailable CONTEH, Ozzy R Attending Unavailable CONTEH, Ozzy R Admitting Unavailable CONTEH, Ozzy R Referring Unavailable CONTEH, Ozzy R Attending Unavailable CONTEH, Ozzy R Attending Unavailable CONTEH, Ozzy R Attending Unavailable CONTEH, Ozzy R Attending Unavailable Allergies Allergy Classification Reported Allergen(s) Allergy Type Date of Onset Reaction(s) Facility (7 sources) Amoxicillin; Translations: [amoxicillin] Drug Allergy Mild (qualifier value) [facility] (7 sources) Amoxicillin / Clavulanate; Translations: [amoxicillin-cla vulanate] Drug Allergy Diarrhea (finding) [facility] (8 sources) levoFLOXacin; Translations: [levofloxacin] Drug Allergy 8 Mild (qualifier value) [facility] (8 sources) pioglitazone; Translations: [pioglitazone] Drug Allergy 8 Mild (qualifier value) [facility] (1 source) Amoxicillin / Clavulanate Drug Allergy [facility] (2 sources) levoFLOXacin Drug Allergy 4 [facility] (1 source) pioglitazone Drug Allergy [facility] (1 source) hydrOXYzine; Translations: [HYDROXYZINE] Drug Allergy 3 [facility] (1 source) AMOXICILLIN-POT CLAVULANATE; Translations: [AMOXICILLIN-POT CLAVULANATE] Propensity to adverse reactions to drug (disorder) 8 [facility] Medications Current Medications Medication [...] Corticosteroid Start: 12-11-2019 fluticasone 0.05 mg/inh Nasal [place] Nasal, Daily, Refill(s) 0 Start Date: 12/11/19 Status: Ordered fluticasone 0.05 mg/inh Nasal [place] (5 sources) Start: 12-11-2019 fluticasone 0.05 mg/inh Nasal [place] Nasal, Daily, Refill(s) 0 Start Date: 12/11/19 [...] disease (2 sources) Atherosclerotic heart disease of [place] coronary artery without angina pectoris; Translations: [Atherosclerotic heart disease of [place] coronary artery without angina pectoris] Onset: 3 [...] Onset: 3 Episodic Other aftercare (1 source) 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; Translations: [INTERMEDIATE CURRENT USE OF ASPIRIN] Onset: 3 Episodic Other aftercare (1 source) 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 (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) use of insulin; Translations: [INTERMEDIATE CURRENT USE OF INSULIN] Onset: 3 Episodic Other aftercare (1 source) rodent 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 (current) use of oral hypoglycemic drugs; Translations: [HIRED WORKER USE ORAL HYPOGLYCEMIC DX] Onset: 3 Episodic Other aftercare (1 source) Other extermination supervisor (current) drug therapy; Translations: [OTH HIRED WORKER CURRENT DRUG THERAPY] Onset: 3 Episodic Other [...] Results Test Name Value Interpretation Reference Range Facility Office Visiton 09-28-2023 Follow-up visit [id number] Jose Ferreira 1940 M Date Provider Department Center 09/28/2023 ELYSE PATEL CARD [place] Family History Problem Relation Age of Onset Cancer Father Alcohol abuse Father Family Status - Relation Status Age at Father Level of Service:[address] [place] OFFICE/OUTPATIENT ESTABLISHED HIGH MDM 40-54 MIN Normal [facility] Lab Reportson 09-25-2023 Lab Reports [id number] .00TIFF Normal [facility] Ambulatory Visit Summaryon 1 11-25-2022 Ambulatory [...] (Welchol) fluticasone nasal (fluticasone 0.05 mg/inh Nasal [place]) furosemide (furosemide 20 mg Tab) gabapentin (gabapentin [...] [facility] [address] [place] [address] [phone] Medications What How Much When Instructions Unchanged [...] fluticasone nasal (fluticasone 0.05 mg/ inh Nasal [place]) Nasal Inhalation Every day Contact prescribing physician [...] PSA Prostat (more content not included)... Normal [facility] Home Recordson 09-24 [facility] Records [id number] .00TIFF Normal [facility] Patient Educationon 09-24-20 23 Patient Education Urology Suprapubic Catheter Replacement Suprapubic [...] and water are not available, use hand flat grinder operator. ? Disconnect the bag from the catheter and immediately attach a new bag to the catheter. ? Empty the used bag completely. ? Clean the used bag according to the graduate engineer's instructions, or as told by your health care provider. ? Let the bag dry completely, and put it in a clean plastic bag before storing it. General instructions ? Always wash your hands before and after caring for your catheter and collection bag. Use soap and water. If soap and water are not available, use hand flat grinder operator. ? Always make sure there are no [...] have (more content not included)... Normal [facility] Urology Office/Clinic Noteon 09-24-2023 Urology Office/Clinic [...] PSA 08/21/23- 0.98 Pt was admitted to [facility] 09/11/23 due to Tachycardia. Post Op sutures [...] Had sutures removed 09/12/23 while inpatient at [facility] ER. Pt had SP tube 24FR changed [...] When Contact Information YADY SALCIDO, Ozzy Velasquez, [facility] [address], [place] [address]- [phone] Additional Instructions: 3 wks Patient Education Suprapubic [...] 10 mg Tab fluticasone 0.05 mg/inh Nasal [place], Nasal, Daily furosemide 20 mg Tab, 40 [...] No. Yes, 11/ (more content not included)... [facility] Comment on above: Result Comment: Elec tronically Signed By: Ozzy CONTEH MD\.br\Date and Time Signed: 09/24/23 12:17 EST\.br\Electronically Co-Signed By: Anne-Marie Quinonez\.br\Date and Time Co-Signed: 09/24/23 12:14 EST Operative Reporton Operative Report [id number]. 00TIFF [facility] Lab Reportson 08-31-2023 Lab Reports [id number] .00TIFF [facility] Lab Reports [id number] .00TIFF [facility] Patient Educationon 08-27-20 Patient Education Urology [...] and water are not available, use hand flat grinder operator. ? Disconnect the bag from the catheter and immediately attach a new bag to the catheter. ? Empty the used bag completely. ? Clean the used bag according to the graduate engineer's instructions, or as told by your health care provider. ? Let the bag dry completely, and put it in a clean plastic bag before storing it. General instructions ? Always wash your hands before and after caring for your catheter and collection bag. Use soap and water. If soap and water are not available, use hand flat grinder operator. ? Always make sure there are no [...] You have (more content not included)... Normal [facility] Urology Office/Clinic Noteon 08-27-2023 Urology Office/Clinic [...] 08/21/23- 0.98 PT is concerned with ongoing constipation/diarrhea . As well as if he will need [...] placement 08/30/23. Pt is concerned with ongoing constipation/diarrhea . As well as if he will need [...] [facility] [address], [place] [address]- Additional Instructions: f/u appt already scheduled Patient [...] ESWL (11/12/1998), right (more content not included)... [facility] Comment on above: Result Comment: Elec tronically Signed By: YADY SALCIDO, Ozzy Velasquez\.br\Date and Time Signed: 08/27/23 13:47 EST\.br\Electronically Co-Signed By: Cordelia Donato\.br\Date and Time Co-Signed: 08/27/23 13:45 EST Patient Correspondenceon Patient Correspondence [id number] .00TIFF [facility] Documentationon 08-22-2023 Documentation [id number] Jose Ferreira 1940 M Date Provider Department Center 08/22/2023 GEORGIE GTZ [facility] Family History Problem Relation Age of Onset Cancer Father Alcohol abuse Father Family Status - Relation Status Age at Father Normal [facility] Lab Reportson 08-22-2023 Lab Reports [id number] .00TIFF [facility] Lab Reports .[id number] .00TIFF [facility] 36on 08-21-2023 36 You saw this patient 2 weeks ago in clinic. He now needs clearance to hold aspirin 325mg for 7 days for a cystoscopy and suprapubic catheter placement with Dr. Conteh. This is scheduled on 08/30/2023. 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 Please advise. Thanks. [facility] Office Visiton 08-06-2023 Follow-up visit [id number] Jose Ferreira 1940 M Date Provider Department Center 08/06/2023 Trudy-GEORGIE MUNOZ CARD [place] Family History Problem Relation Age of Onset Cancer Father Alcohol abuse Father Family Status - Relation Status Age at Father Level of Service:42185 [place] OFFICE/OUTPATIENT ESTABLISHED LOW MDM 20-29 MIN [facility] Consent for Procedure/Surger yon 08-02-2023 Consent for Procedure/Surgery [id number] .00TIFF [facility] Formson 08-02-2023 Forms [id number] .00TIFF [facility] Physician Orderon 08-02-2023 Physician Order [id number] .00TIFF [facility] Retail - Clinical Noteon Retail - Clinical Note [id number] .00CD:127 [facility] Ambulatory Visit Summaryon 0 06-18-2023 Ambulatory [...] (Welchol) fluticasone nasal (fluticasone 0.05 mg/inh Nasal [place]) furosemide (furosemide 20 mg Tab) gabapentin (gabapentin [...] SALCIDO, Ozzy Velasquez Where: [facility] Patient Educationon 06-18-20 23 Patient Education Oncology [...] likelihood that the cancer will spread. ? Trappe 6 or lower: This indicates that the cancer cells look similar to normal prostate cells (well differentiated). ? Trappe 7: This indicates that the cancer cells [...] external be (more content not included)... Normal [facility] Reminderson 06-18-2023 Reminders - From: Anne-Marie Quinonez To: [facility] - Recalls Yady; Sent: 06/18/2023 18:05:27 EDT Show up: 08/18/2023 18:05:00 EDT Subject: PSA prior to appt Reminder Message Please Remember to:_have pt get PSA done prior to appt in 3 months. 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 PSA drawn at time of last encounter 12/18/22- 0.5 ([facility]) PSA 06/11/23- 0.69 ([place]) Pt has condom catheter. Changes himself QOD. [...] [facility] [address], [place] [phone] Additional Instructions: PSA (and possible Lupron inj) [...] 10 mg Tab fluticasone 0.05 mg/inh Nasal [place], Nasal, Daily furosemide 20 mg Tab, 40 [...] Never Smokeless To (more content not included)... [facility] Comment on above: Result Comment: Elec tronically Signed By: Ozzy CONTEH MD\.br\Date and Time Signed: 06/18/23 13:16 EDT\.br\Electronically Co-Signed By: Anne-Marie Quinonez\.br\Date and Time Co-Signed: 06/18/23 13:14 EDT Lab Reportson 06-15-2023 Lab Reports [id number] 1.00CD:127 Normal [facility] Office Visiton 04-16-2023 Follow-up visit [id number] Jose Ferreira 1940 M Date Provider Department Center 04/16/2023 120-GEORGIE MUNOZ BELEN [facility] Family History Problem Relation Age of Onset Cancer Father Alcohol abuse Father Family Status - Relation Status Age at Father Level of Service:59981 [place] OFFICE/OUTPATIENT ESTABLISHED LOW MDM 20-29 MIN [facility] Office Visiton 04-04-2023 Follow-up visit [id number] Jose Ferreira 1940 M Date Provider Department Center 04/04/2023 [id number]-VDZKHURRWFELIX SOTO BELEN [facility] Family History Problem Relation Age of Onset Cancer Father Alcohol abuse Father Family Status - Relation Status Age at Father Level of Service:52311 [place] OFFICE/OUTPATIENT ESTABLISHED LOW MDM 20-29 MIN [facility] Office Visiton 03-28-2023 Follow-up visit [id number] Jose Ferreira 1940 M Date Provider Department Center 03/28/2023 Chaparro-NIA ROACH [facility] Family History Problem Relation Age of Onset Cancer Father Alcohol abuse Father Family Status - Relation Status Age at Father Level of Service:55089 [place] OFFICE/OUTPATIENT ESTABLISHED MOD [facility] 30-39 MIN Reason for Visit and Comments: Atrial Fibrillation [80] Coronary Artery Disease [187] Congestive Heart Failure [127] Normal [facility] XR CHEST 2 Von 02-09-2023 XR CHEST [...] by: VALENTÍN ZIMMERMAN Date: 2023-02-09 16:00 Normal [facility] CULTURE SPUTUMon 01-12-2023 CULTURE SPUTUM Culture Observations : METHICILLIN RESISTANT STAPH AUREUS ISOLATED. PLEASE FOLLOW APPROPRIATE ISOLATION PROCEDURES. Isolate 1 Staphylococcus aureus Light growth of Isolate 2 Pseudomonas aeruginosa Light growth of ORGANISM 2 Pseudomonas aeruginosa ANTIBIOTIC M.I.C RX STATUS Piperacillin/Tazobact am <=4 S F Ceftazidime 2 S F [...] >=8 R F Clindamycin <=0.25 R F Quinupristin/Dalfopri stin <=0.25 S F Linezolid 2 S F Vancomycin <=0.5 S F Tetracycline <=1 S F Rifampicin <=0.5 S F Trimethoprim/Sulfamet hoxazole <=10 S F Normal [facility] Comment on above: Performed By: #### B CABLE MAKER, CMP #### [facility] [address] [place] [address] Dr. Norbert Polk BNPon 01-11-2023 Natriuretic peptide B (Bld) [Mass/Vol] 1177.0 pg/mL Normal <=1,800.0 [facility] Comment on above: Performed By: #### B CABLE MAKER, CMP #### [facility] [address] [place] [address] Dr. Norbert Polk CBC AUTO DIFFon 01-11-2023 BASO # 0.1 103/ul Normal 0.0-0.1 [facility] Comment on above: Performed By: #### P OCGLUC #### [facility] [address] [place] [address] Dr. Norbert Polk Basophils/100 WBC (Bld) 0.5 % Normal 0.2-2.0 [facility] Comment on above: Performed By: #### P OCGLUC #### [facility] [address] [place] [address] Dr. Norbert Polk EO # 0.7 103/ul Normal 0.0-0.7 [facility] Comment on above: Performed By: #### P OCGLUC #### [facility] [address] [place] [address] Dr. Norbert Polk Eosinophils/100 WBC (Bld) 7.0 % Normal 0.9-7.0 [facility] Comment on above: Performed By: #### P OCGLUC #### [facility] [address] [place] [address] Dr. Norbert Polk Erythrocyte distribution width (RBC) [Ratio] 14.5 % Normal 11.0-15.0 [facility] Comment on above: Performed By: #### P OCGLUC #### [facility] [address] [place] [address] Dr. Norbert Polk Hematocrit (Bld) [Volume fraction] 29.2 % Critically low 42.0-54.0 [facility] Comment on above: Performed By: #### P OCGLUC #### [facility] [address] [address] [address] Norbert Polk Hemoglobin (Bld) [Mass/Vol] 8.9 g/dL Critically low 14.0-18.0 [facility] Comment on above: Performed By: #### P OCGLUC #### [facility] [address] [address] [address] Norbert Polk IG # 0.05 10e3/ul Critically high 0.00-0.03 [facility] Comment on above: Performed By: #### P OCGLUC #### [facility] [address] [address] [address] Norbert Polk IG % 0.5 % Normal 0.0-0.5 [facility] Comment on above: Performed By: #### P OCGLUC #### [facility] [address] [address] [address] Norbert Polk LYMPH # 2.5 103/ul Normal 1.2-3.8 [facility] Comment on above: Performed By: #### P OCGLUC #### [facility] [address] [address] [address] Norbert Polk Lymphocytes/100 WBC (Bld) 25.7 % Normal 20.5-60.0 [facility] Comment on above: Performed By: #### P OCGLUC #### [facility] [address] [address] [address] Norbert Polk MANUAL DIFF REQ NO Normal [facility] Comment on above: Performed By: #### P OCGLUC #### [facility] [address] [address] [address] Norbert Polk MCH (RBC) [Entitic mass] 29.9 pg Normal 25.9-34.0 [facility] Comment on above: Performed By: #### P OCGLUC #### [facility] [address] [address] [address] Norbert Polk MCHC (RBC) [Mass/Vol] 30.5 g/dL Normal 29.9-35.2 [facility] Comment on above: Performed By: #### P OCGLUC #### [facility] [address] [address] [address] Norbert Polk MCV (RBC) [Entitic vol] 98.0 fL Critically high 80.0-94.0 [facility] Comment on above: Performed By: #### P OCGLUC #### [facility] [address] [address] [address] Norbert Polk MONO # 0.6 103/ul Normal 0.3-0.8 [facility] Comment on above: Performed By: #### P OCGLUC #### [facility] [address] [address] [address] Norbert Polk Monocytes/100 WBC (Bld) 6.7 % Normal 1.7-12.0 [facility] Comment on above: Performed By: #### P OCGLUC #### [facility] [address] [address] [address] Norbert Polk NEUT # 5.7 103/ul Normal 1.4-6.5 [facility] Comment on above: Performed By: #### P OCGLUC #### [facility] [address] [address] [address] Norbert Polk Neutrophils/100 WBC (Bld) 59.6 % Normal 43.0-75.0 [facility] Comment on above: Performed By: #### P OCGLUC #### [facility] [address] [address] [address] Norbert Polk Platelet mean volume (Bld) [Entitic vol] 9.5 fL Normal 9.5-13.5 [facility] Comment on above: Performed By: #### P OCGLUC #### [facility] [address] [address] [address] Norebrt Polk PLT 245 103/ul Normal 150-450 [facility] Comment on above: Performed By: #### P OCGLUC #### [facility] [address] [address] [address] Norbert Polk RBC 2.98 106/ul Critically low 4.70-6.10 [facility] Comment on above: Performed By: #### P OCGLUC #### [facility] [address] [place] [address] Dr. Norbert Polk WBC 9.6 103/ul Normal 4.0-11.0 [facility] Comment on above: Performed By: #### P OCGLUC #### [facility] [address] [address] [address] Norbert Polk OCC BLD IMMUNOASSAYon 2022 OCCULT BLOOD Positive Abnormal NEGATIVE [facility] Comment on above: Performed By: #### P OCGLUC #### [facility] [address] [address] [address] Norbert Polk POINT OF CARE GLUCOSEon 12-21 Glucose [Mass/Vol] 305 mg/dL Critically high 74-106 [facility] Comment on above: Performed By: #### C MP, CMADM, BNP #### [facility] [address] [place] [address] Dr. Norbert Polk PROF 14(COMP METB)on 023 Albumin [Mass/Vol] 2.6 g/dL Critically low 3.4-5.0 [facility] Comment on above: Performed By: #### B CABLE MAKER, CMP #### [facility] [address] [place] [address] Dr. Norbert Polk Albumin/Globulin [Mass ratio] 0.7 {ratio} Normal [facility] Comment on above: Performed By: #### B CABLE MAKER, CMP #### [facility] [address] [place] [address] Dr. Norbert Polk ALP [Catalytic activity/Vol] 61 U/L Normal 46-116 [facility] Comment on above: Performed By: #### B CABLE MAKER, CMP #### [facility] [address] [place] [address] Dr. Norbert Polk ALT [Catalytic activity/Vol] 19 U/L Normal 16-63 [facility] Comment on above: Performed By: #### B CABLE MAKER, CMP #### [facility] [address] [place] [address] Dr. Norbert Polk Anion gap [Moles/Vol] 12.8 mmol/L Normal Th e [facility] Comment on above: Performed By: #### B CABLE MAKER, CMP #### [facility] [address] [address] [address] Norbert Polk AST [Catalytic activity/Vol] 21 U/L Normal 15-37 [facility] Comment on above: Performed By: #### B CABLE MAKER, CMP #### [facility] [address] [place] [address] Dr. Norbert Polk Bilirubin [Mass/Vol] 0.1 mg/dL Critically low 0.2-1.0 [facility] Comment on above: Performed By: #### B CABLE MAKER, CMP #### [facility] [address] [place] [address] Dr. Norbert Polk Calcium [Mass/Vol] 9.1 mg/dL Normal 8.5-10.1 [facility] Comment on above: Performed By: #### B CABLE MAKER, CMP #### [facility] [address] [place] [address] Dr. Norbert Polk Chloride [Moles/Vol] 105 mmol/L Normal 98-107 [facility] Comment on above: Performed By: #### B CABLE MAKER, CMP #### [facility] [address] [place] [address] Dr. Norbert Polk CO2 [Moles/Vol] 26.4 mmol/L Normal 21.0-32.0 [facility] Comment on above: Performed By: #### B CABLE MAKER, CMP #### [facility] [address] [place] [address] Dr. Norbert Polk Creatinine [Mass/Vol] 1.83 mg/dL Critically high 0.70-1.30 [facility] Comment on above: Performed By: #### B CABLE MAKER, CMP #### [facility] [address] [place] [address] Dr. Norbert Polk EGFR-AF NICARAGUAN 43 mL/min/1.73m2 Critically low >=60 [facility] Comment on above: Performed By: #### B CABLE MAKER, CMP #### [facility] [address] [place] [address] Dr. Norbert Polk EGFR-NON AF NICARAGUAN 35 mL/min/1.73m2 Critically low >=60 [facility] Comment on above: Performed By: #### B CABLE MAKER, CMP #### [facility] [address] [place] [address] Dr. Norbert Polk Globulin (S) [Mass/Vol] 3.9 g/dL Normal [facility] Comment on above: Performed By: #### B CABLE MAKER, CMP #### [facility] [address] [place] [address] Dr. Norbert Polk Glucose [Mass/Vol] 176 mg/dL Critically high 74-106 [facility] Comment on above: Performed By: #### B CABLE MAKER, CMP #### [facility] [address] [place] [address] Dr. Norbert Polk Potassium [Moles/Vol] 5.2 mmol/L Critically high 3.5-5.1 [facility] Comment on above: Performed By: #### B CABLE MAKER, CMP #### [facility] [address] [place] [address] Dr. Norbert Polk Protein [Mass/Vol] 6.5 g/dL Normal 6.4-8.2 [facility] Comment on above: Performed By: #### B CABLE MAKER, CMP #### [facility] [address] [place] [address] Dr. Norbert Polk Sodium [Moles/Vol] 139 mmol/L Normal 136-145 [facility] Comment on above: Performed By: #### B CABLE MAKER, CMP #### [facility] [address] [place] [address] Dr. Norbert Polk Urea nitrogen [Mass/Vol] 38.0 mg/dL Critically high 7.0-18.0 [facility] Comment on above: Performed By: #### B CABLE MAKER, CMP #### [facility] [address] [place] [address] Dr. Norbert Polk Urea nitrogen/Creatinine [Mass ratio] 20.8 mg/mg Normal [facility] Comment on above: Performed By: #### B CABLE MAKER, CMP #### [facility] [address] [place] [address] Dr. Norbert Polk XR KUB 1 VIEWon [...] ROLANDA SHIELDS Date: 2023-01-11 06:08 Normal The [facility] BNPon 01-10-2023 Natriuretic peptide B (Bld) [Mass/Vol] 881.0 pg/mL Normal <=1,800.0 [facility] Comment on above: Performed By: #### P OCGLUC #### [facility] [address] [place] [address] Dr. Norbert Polk CBC AUTO DIFFon 01-10-2023 BASO # 0.0 103/ul Normal 0.0-0.1 [facility] Comment on above: Performed By: #### C MP, CMADM, BNP #### [facility] [address] [place] [address] Dr. Norebrt Polk Basophils/100 WBC (Bld) 0.4 % Normal 0.2-2.0 [facility] Comment on above: Performed By: #### C MP, CMADM, BNP #### [facility] [address] [place] [address] Dr. Norbert Polk EO # 0.5 103/ul Normal 0.0-0.7 [facility] Comment on above: Performed By: #### C MP, CMADM, BNP #### [facility] [address] [place] [address] Dr. Norbert Polk Eosinophils/100 WBC (Bld) 5.2 % Normal 0.9-7.0 [facility] Comment on above: Performed By: #### C MP, CMADM, BNP #### [facility] [address] [place] [address] Dr. Norbert Polk Erythrocyte distribution width (RBC) [Ratio] 14.5 % Normal 11.0-15.0 [facility] Comment on above: Performed By: #### C MP, CMADM, BNP #### [facility] [address] [place] [address] Dr. Norbert Polk Hematocrit (Bld) [Volume fraction] 27.4 % Critically low 42.0-54.0 [facility] Comment on above: Performed By: #### C MP, CMADM, BNP #### [facility] [address] [place] [address] Dr. Norbert Polk Hemoglobin (Bld) [Mass/Vol] 8.6 g/dL Critically low 14.0-18.0 [facility] Comment on above: Performed By: #### C MP, CMADM, BNP #### [facility] [address] [place] [address] Dr. Norbert Polk IG # 0.06 10e3/ul Critically high 0.00-0.03 [facility] Comment on above: Performed By: #### C MP, CMADM, BNP #### [facility] [address] [place] [address] Dr. Norbert Polk IG % 0.7 % Critically high 0.0-0.5 [facility] Comment on above: Performed By: #### C MP, CMADM, BNP #### [facility] [address] [place] [address] Dr. Norbert Polk LYMPH # 2.5 103/ul Normal 1.2-3.8 The [facility] Comment on above: Performed By: #### C MP, CMADM, BNP #### [facility] [address] [place] [address] Dr. Norbert Polk Lymphocytes/100 WBC (Bld) 27.2 % Normal 20.5-60.0 [facility] Comment on above: Performed By: #### C MP, CMADM, BNP #### [facility] [address] [place] [address] Dr. Norbert Polk MANUAL DIFF REQ NO Normal [facility] Comment on above: Performed By: #### C MP, CMADM, BNP #### [facility] [address] [place] [address] Dr. Norbert Polk MCH (RBC) [Entitic mass] 30.9 pg Normal 25.9-34.0 [facility] Comment on above: Performed By: #### C MP, CMADM, BNP #### [facility] [address] [place] [address] Dr. Norbert Polk MCHC (RBC) [Mass/Vol] 31.4 g/dL Normal 29.9-35.2 The [facility] Comment on above: Performed By: #### C MP, CMADM, BNP #### [facility] [address] [place] [address] Dr. Norbert Polk MCV (RBC) [Entitic vol] 98.6 fL Critically high 80.0-94.0 [facility] Comment on above: Performed By: #### C MP, CMADM, BNP #### [facility] [address] [place] [address] Dr. Norbert Polk MONO # 0.6 103/ul Normal 0.3-0.8 The [facility] Comment on above: Performed By: #### C MP, CMADM, BNP #### [facility] [address] [place] [address] Dr. Norbert Polk Monocytes/100 WBC (Bld) 6.4 % Normal 1.7-12.0 The [facility] Comment on above: Performed By: #### C MP, CMADM, BNP #### [facility] [address] [place] [address] Dr. Norbert Polk NEUT # 5.5 103/ul Normal 1.4-6.5 The [facility] Comment on above: Performed By: #### C MP, CMADM, BNP #### [facility] [address] [place] [address] Dr. Norbert Polk Neutrophils/100 WBC (Bld) 60.1 % Normal 43.0-75.0 [facility] Comment on above: Performed By: #### C MP, CMADM, BNP #### [facility] [address] [place] [address] Dr. Norbert Polk Platelet mean volume (Bld) [Entitic vol] 9.3 fL Critically low 9.5-13.5 [facility] Comment on above: Performed By: #### C MP, CMADM, BNP #### [facility] [address] [address] [address] Norbert Polk PLT 219 103/ul Normal 150-450 The [facility] Comment on above: Performed By: #### C MP, CMADM, BNP #### [facility] [address] [address] [address] Norbert Polk RBC 2.78 106/ul Critically low 4.70-6.10 [facility] Comment on above: Performed By: #### C MP, CMADM, BNP #### [facility] [address] [address] [address] Norbert Polk WBC 9.2 103/ul Normal 4.0-11.0 [facility] Comment on above: Performed By: #### C MP, CMADM, BNP #### [facility] [address] [place] [address] Dr. Norbert Polk BASO # 0.0 103/ul Normal 0.0-0.1 [facility] Comment on above: Performed By: #### B CABLE MAKER, CMP #### [facility] [address] [place] [address] Dr. Norbert Polk Basophils/100 WBC (Bld) 0.3 % Normal 0.2-2.0 [facility] Comment on above: Performed By: #### B CABLE MAKER, CMP #### [facility] [address] [place] [address] Dr. Norbert Polk EO # 0.5 103/ul Normal 0.0-0.7 The [facility] Comment on above: Performed By: #### B CABLE MAKER, CMP #### [facility] [address] [place] [address] Dr. Norbert Polk Eosinophils/100 WBC (Bld) 5.9 % Normal 0.9-7.0 The [facility] Comment on above: Performed By: #### B CABLE MAKER, CMP #### [facility] [address] [place] [address] Dr. Norbert Polk Erythrocyte distribution width (RBC) [Ratio] 14.3 % Normal 11.0-15.0 [facility] Comment on above: Performed By: #### B CABLE MAKER, CMP #### [facility] [address] [place] [address] Dr. Norbert Polk Hematocrit (Bld) [Volume fraction] 27.2 % Critically low 42.0-54.0 [facility] Comment on above: Performed By: #### B CABLE MAKER, CMP #### [facility] [address] [place] [address] Dr. Norbert Polk Hemoglobin (Bld) [Mass/Vol] 8.5 g/dL Critically low 14.0-18.0 [facility] Comment on above: Performed By: #### B CABLE MAKER, CMP #### [facility] [address] [place] [address] Dr. Norbert Polk IG # 0.08 10e3/ul Critically high 0.00-0.03 [facility] Comment on above: Performed By: #### B CABLE MAKER, CMP #### [facility] [address] [place] [address] Dr. Norbert Polk IG % 0.9 % Critically high 0.0-0.5 [facility] Comment on above: Performed By: #### B CABLE MAKER, CMP #### [facility] [address] [place] [address] Dr. Norbert Polk LYMPH # 2.4 103/ul Normal 1.2-3.8 The [facility] Comment on above: Performed By: #### B CABLE MAKER, CMP #### [facility] [address] [place] [address] Dr. Norbert Polk Lymphocytes/100 WBC (Bld) 27.6 % Normal 20.5-60.0 [facility] Comment on above: Performed By: #### B CABLE MAKER, CMP #### [facility] [address] [place] [address] Dr. Norbert Polk MANUAL DIFF REQ NO Normal [facility] Comment on above: Performed By: #### B CABLE MAKER, CMP #### [facility] [address] [place] [address] Dr. Norbert Polk MCH (RBC) [Entitic mass] 30.6 pg Normal 25.9-34.0 The [facility] Comment on above: Performed By: #### B CABLE MAKER, CMP #### [facility] [address] [place] [address] Dr. Norbert Polk MCHC (RBC) [Mass/Vol] 31.3 g/dL Normal 29.9-35.2 The [facility] Comment on above: Performed By: #### B CABLE MAKER, CMP #### [facility] [address] [place] [address] Dr. Norbert Polk MCV (RBC) [Entitic vol] 97.8 fL Critically high 80.0-94.0 The [facility] Comment on above: Performed By: #### B CABLE MAKER, CMP #### [facility] [address] [place] [address] Dr. Norbert Polk MONO # 0.7 103/ul Normal 0.3-0.8 The [facility] Comment on above: Performed By: #### B CABLE MAKER, CMP #### [facility] [address] [place] [address] Dr. Norbert Polk Monocytes/100 WBC (Bld) 7.7 % Normal 1.7-12.0 The [facility] Comment on above: Performed By: #### B CABLE MAKER, CMP #### [facility] [address] [place] [address] Dr. Norbert Polk NEUT # 4.9 103/ul Normal 1.4-6.5 The [facility] Comment on above: Performed By: #### B CABLE MAKER, CMP #### [facility] [address] [place] [address] Dr. Norbert Polk Neutrophils/100 WBC (Bld) 57.6 % Normal 43.0-75.0 The [facility] Comment on above: Performed By: #### B CABLE MAKER, CMP #### [facility] [address] [place] [address] Dr. Norbert Polk Platelet mean volume (Bld) [Entitic vol] 9.5 fL Normal 9.5-13.5 The [facility] Comment on above: Performed By: #### B CABLE MAKER, CMP #### [facility] [address] [address] [address] Norbert Polk PLT 243 103/ul Normal 150-450 [facility] Comment on above: Performed By: #### B CABLE MAKER, CMP #### [facility] [address] [address] [address] Norbert Polk RBC 2.78 106/ul Critically low 4.70-6.10 [facility] Comment on above: Performed By: #### B CABLE MAKER, CMP #### [facility] [address] [address] [address] Norbert Polk WBC 8.6 103/ul Normal 4.0-11.0 [facility] Comment on above: Performed By: #### B CABLE MAKER, CMP #### [facility] [address] [address] [address] Norbert Polk POINT OF CARE GLUCOSEon 12-21 Glucose [Mass/Vol] 176 mg/dL Critically high 74-106 [facility] Comment on above: Performed By: #### B CABLE MAKER, CMP #### [facility] [address] [address] [address] Norbert Polk Glucose [Mass/Vol] 181 mg/dL Critically high -106 [facility] Comment on above: Performed By: #### P OCGLUC #### [facility] [address] [address] [address] Norbert Polk Glucose [Mass/Vol] 309 mg/dL Critically high 74-106 [facility] Comment on above: Performed By: #### B CABLE MAKER, CMP #### [facility] [address] [address] [address] Norbert Polk PROF 14(COMP METB)on 023 Albumin [Mass/Vol] 2.4 g/dL Critically low 3.4-5.0 [facility] Comment on above: Performed By: #### B CABLE MAKER, CMP #### [facility] [address] [place] [address] Dr. Norbert Polk Albumin/Globulin [Mass ratio] 0.6 {ratio} Normal [facility] Comment on above: Performed By: #### B CABLE MAKER, CMP #### [facility] [address] [address] [address] Norbert Polk ALP [Catalytic activity/Vol] 57 U/L Normal 46-116 [facility] Comment on above: Performed By: #### B CABLE MAKER, CMP #### [facility] [address] [address] [address] Norbert Polk ALT [Catalytic activity/Vol] 17 U/L Normal 16-63 [facility] Comment on above: Performed By: #### B CABLE MAKER, CMP #### [facility] [address] [address] [address] Norbert Polk Anion gap [Moles/Vol] 11.1 mmol/L Normal [facility] Comment on above: Performed By: #### B CABLE MAKER, CMP #### [facility] [address] [address] [address] Norbert Polk AST [Catalytic activity/Vol] 13 U/L Critically low 15-37 [facility] Comment on above: Performed By: #### B CABLE MAKER, CMP #### [facility] [address] [address] [address] Norbert Polk Bilirubin [Mass/Vol] 0.1 mg/dL Critically low 0.2-1.0 [facility] Comment on above: Performed By: #### B CABLE MAKER, CMP #### [facility] [address] [address] [address] Norbert Polk Calcium [Mass/Vol] 8.8 mg/dL Normal 8.5-10.1 [facility] Comment on above: Performed By: #### B CABLE MAKER, CMP #### [facility] [address] [address] [address] Norbert Polk Chloride [Moles/Vol] 112 mmol/L Critically high 98-107 [facility] Comment on above: Performed By: #### B CABLE MAKER, CMP #### [facility] [address] [address] [address] Norbert Polk CO2 [Moles/Vol] 25.9 mmol/L Normal 21.0-32.0 [facility] Comment on above: Performed By: #### B CABLE MAKER, CMP #### [facility] [address] [place] [address] Dr. Norbert Polk Creatinine [Mass/Vol] 1.94 mg/dL Critically high 0.70-1.30 [facility] Comment on above: Performed By: #### B CABLE MAKER, CMP #### [facility] [address] [place] [address] Dr. Norbert Polk EGFR-AF NICARAGUAN 40 mL/min/1.73m2 Critically low >=60 [facility] Comment on above: Performed By: #### B CABLE MAKER, CMP #### [facility] [address] [place] [address] Dr. Norbert Polk EGFR-NON AF NICARAGUAN 33 mL/min/1.73m2 Critically low >=60 [facility] Comment on above: Performed By: #### B CABLE MAKER, CMP #### [facility] [address] [place] [address] Dr. Norbert Polk Globulin (S) [Mass/Vol] 3.7 g/dL Normal [facility] Comment on above: Performed By: #### B CABLE MAKER, CMP #### [facility] [address] [place] [address] Dr. Norbert Polk Glucose [Mass/Vol] 91 mg/dL Normal 74-106 [facility] Comment on above: Performed By: #### B CABLE MAKER, CMP #### [facility] [address] [place] [address] Dr. Norbert Polk Potassium [Moles/Vol] 5.0 mmol/L Normal 3.5-5.1 [facility] Comment on above: Performed By: #### B CABLE MAKER, CMP #### [facility] [address] [place] [address] Dr. Norbert Polk Protein [Mass/Vol] 6.1 g/dL Critically low 6.4-8.2 [facility] Comment on above: Performed By: #### B CABLE MAKER, CMP #### [facility] [address] [place] [address] Dr. Norbert Polk Sodium [Moles/Vol] 144 mmol/L Normal 136-145 [facility] Comment on above: Performed By: #### B CABLE MAKER, CMP #### [facility] [address] [place] [address] Dr. Norbert Polk Urea nitrogen [Mass/Vol] 48.0 mg/dL Critically high 7.0-18.0 [facility] Comment on above: Performed By: #### B CABLE MAKER, CMP #### [facility] [address] [place] [address] Dr. Norbert Polk Urea nitrogen/Creatinine [Mass ratio] 24.7 mg/mg Normal [facility] Comment on above: Performed By: #### B CABLE MAKER, CMP #### [facility] [address] [place] [address] Dr. Norbert Polk BNPon 01-09-2023 Natriuretic peptide B (Bld) [Mass/Vol] 1067.0 pg/mL Normal <=1,800.0 [facility] Comment on above: Performed By: #### C MP, CMADM, BNP #### [facility] [address] [place] [address] Dr. Norbert Polk CARDIAC JENNA ADMITon 023 CK [Catalytic activity/Vol] 50 U/L Normal 39-308 [facility] Comment on above: Performed By: #### C MP, CMADM, BNP #### [facility] [address] [place] [address] Dr. Norbert Polk CK.MB [Mass/Vol] 2.37 ng/mL Normal <=3.60 [facility] Comment on above: Performed By: #### C MP, CMADM, BNP #### [facility] [address] [place] [address] Dr. Norbert Polk HSTROP 10.4 pg/mL Normal 4.0-76.1 [facility] Comment on above: Result Comment: CUT- OFF POINTS HAVE BEEN ESTABLISHED BASED ON THE FOURTH UNIVERSAL DEFINITIONS OF MYOCARDIAL INFARCTION. THE UPPER REFERENCE LIMIT (URL) OF TROPONIN, DEFINED THE 99TH PERCENTILE OF cTnI DISTRIBUTION IN A REFERENCE POPULATION, HAS BEEN CONFIRMED THE DECISION THRESHOLD FOR NE DIAGNOSIS. Performed By: #### C MP, CMADM, BNP #### [facility] [address] [address] [address] Norbert Polk SILVIO 257 ng/mL Critically high 16-96 [facility] Comment on above: Performed By: #### C MP, CMADM, BNP #### [facility] [address] [address] [address] Norbert Polk CBC AUTO DIFFon 01-09-2023 BASO # 0.1 103/ul Normal 0.0-0.1 [facility] Comment on above: Performed By: #### B CABLE MAKER, CMP #### [facility] [address] [place] [address] Dr. Norbert Polk Basophils/100 WBC (Bld) 0.4 % Normal 0.2-2.0 [facility] Comment on above: Performed By: #### B CABLE MAKER, CMP #### [facility] [address] [place] [address] Dr. Norbert Polk EO # 0.7 103/ul Normal 0.0-0.7 [facility] Comment on above: Performed By: #### B CABLE MAKER, CMP #### [facility] [address] [address] [address] Norbert Polk Eosinophils/100 WBC (Bld) 6.3 % Normal 0.9-7.0 [facility] Comment on above: Performed By: #### B CABLE MAKER, CMP #### [facility] [address] [place] [address] Dr. Norbert Polk Erythrocyte distribution width (RBC) [Ratio] 14.1 % Normal 11.0-15.0 [facility] Comment on above: Performed By: #### B CABLE MAKER, CMP #### [facility] [address] [place] [address] Dr. Norbert Polk Hematocrit (Bld) [Volume fraction] 33.2 % Critically low 42.0-54.0 [facility] Comment on above: Performed By: #### B CABLE MAKER, CMP #### [facility] [address] [place] [address] Dr. Norbert Polk Hemoglobin (Bld) [Mass/Vol] 10.4 g/dL Critically low 14.0-18.0 [facility] Comment on above: Performed By: #### B CABLE MAKER, CMP #### [facility] [address] [place] [address] Dr. Norbert Polk IG # 0.08 10e3/ul Critically high 0.00-0.03 [facility] Comment on above: Performed By: #### B CABLE MAKER, CMP #### [facility] [address] [place] [address] Dr. Norbert Polk IG % 0.7 % Critically high 0.0-0.5 [facility] Comment on above: Performed By: #### B CABLE MAKER, CMP #### [facility] [address] [place] [address] Dr. Norbert Polk LYMPH # 2.7 103/ul Normal 1.2-3.8 [facility] Comment on above: Performed By: #### B CABLE MAKER, CMP #### [facility] [address] [place] [address] Dr. Norbert Polk Lymphocytes/100 WBC (Bld) 24.1 % Normal 20.5-60.0 [facility] Comment on above: Performed By: #### B CABLE MAKER, CMP #### [facility] [address] [place] [address] Dr. Norbert Polk MANUAL DIFF REQ NO Normal [facility] Comment on above: Performed By: #### B CABLE MAKER, CMP #### [facility] [address] [place] [address] Dr. Norbert Polk MCH (RBC) [Entitic mass] 30.4 pg Normal 25.9-34.0 [facility] Comment on above: Performed By: #### B CABLE MAKER, CMP #### [facility] [address] [place] [address] Dr. Norbert Polk MCHC (RBC) [Mass/Vol] 31.3 g/dL Normal 29.9-35.2 [facility] Comment on above: Performed By: #### B CABLE MAKER, CMP #### [facility] [address] [place] [address] Dr. Norbert Polk MCV (RBC) [Entitic vol] 97.1 fL Critically high 80.0-94.0 [facility] Comment on above: Performed By: #### B CABLE MAKER, CMP #### [facility] [address] [place] [address] Dr. Norbert Polk MONO # 0.8 103/ul Normal 0.3-0.8 [facility] Comment on above: Performed By: #### B CABLE MAKER, CMP #### [facility] [address] [place] [address] Dr. Norbert Polk Monocytes/100 WBC (Bld) 7.2 % Normal 1.7-12.0 The [facility] Comment on above: Performed By: #### B CABLE MAKER, CMP #### [facility] [address] [place] [address] Dr. Norbert Polk NEUT # 7.0 103/ul Critically high 1.4-6.5 [facility] Comment on above: Performed By: #### B CABLE MAKER, CMP #### [facility] [address] [place] [address] Dr. Norbert Polk Neutrophils/100 WBC (Bld) 61.3 % Normal 43.0-75.0 The [facility] Comment on above: Performed By: #### B CABLE MAKER, CMP #### [facility] [address] [place] [address] Dr. Norbert Polk Platelet mean volume (Bld) [Entitic vol] 9.4 fL Critically low 9.5-13.5 The [facility] Comment on above: Performed By: #### B CABLE MAKER, CMP #### [facility] [address] [place] [address] Dr. Norbert Polk PLT 287 103/ul Normal 150-450 The [facility] Comment on above: Performed By: #### B CABLE MAKER, CMP #### [facility] [address] [place] [address] Dr. Norbert Polk RBC 3.42 106/ul Critically low 4.70-6.10 The [facility] Comment on above: Performed By: #### B CABLE MAKER, CMP #### [facility] [address] [place] [address] Dr. Norbert Polk WBC 11.4 103/ul Critically high 4.0-11.0 The [facility] Comment on above: Performed By: #### B CABLE MAKER, CMP #### [facility] [address] [place] [address] Dr. Norbert Polk CULTURE BLOODon 01-09-2023 Microscopic examination of blood, culture Culture Observations: NO GROWTH AT 5 DAYS. Normal The [facility] Comment on above: Performed By: #### B CABLE MAKER, CMP #### [facility] [address] [place] [address] Dr. Norbert Polk Covid-19 PCR (CVDTB)on 12-21 SARS-CoV-2 (COVID-19) RNA KAYLIN+probe Ql (Unsp spec) Not detected Normal NOT DETECTED The [facility] Comment on above: Result Comment: When diagnostic [...] for this test is supported by the [employer] Worker of Health and Human Service's declaration that [...] By: #### C MP, CMADM, BNP #### [facility] [address] [place] [address] Dr. Norbert Polk ER URINE PROFILEon 3 Bilirubin Ql (U) Negative Normal NEGATIVE The [facility] Comment on above: Performed By: #### B CABLE MAKER, CMP #### [facility] [address] [place] [address] Dr. Norbert Polk Clarity (U) CLEAR Normal CLEAR The [facility] Comment on above: Performed By: #### B CABLE MAKER, CMP #### [facility] [address] [place] [address] Dr. Norbert Polk Color (U) LT. YELLOW Normal YELLOW [facility] Comment on above: Performed By: #### B CABLE MAKER, CMP #### [facility] [address] [place] [address] Dr. Norbert ROMAN A micrscopic examination will be performed if indicated. Normal The [facility] Comment on above: Performed By: #### B CABLE MAKER, CMP #### [facility] [address] [place] [address] Dr. Norbert Polk Glucose Ql (U) Negative Normal NEGATIVE [facility] Comment on above: Performed By: #### B CABLE MAKER, CMP #### [facility] [address] [place] [address] Dr. Norbert Polk Hemoglobin Ql (U) Negative Normal NEGATIVE [facility] Comment on above: Performed By: #### B CABLE MAKER, CMP #### [facility] [address] [place] [address] Dr. Norbert Polk Ketones Ql (U) Negative Normal NEGATIVE [facility] Comment on above: Performed By: #### B CABLE MAKER, CMP #### [facility] [address] [place] [address] Dr. Norbert Polk LEUKOCYTES Negative Normal NEGATIVE [facility] Comment on above: Performed By: #### B CABLE MAKER, CMP #### [facility] [address] [place] [address] Dr. Norbert Polk Nitrite Ql (U) Negative Normal NEGATIVE [facility] Comment on above: Performed By: #### B CABLE MAKER, CMP #### [facility] [address] [place] [address] Dr. Norbert Polk pH (U) 6.0 [pH] Normal 5-9 [facility] Comment on above: Performed By: #### B CABLE MAKER, CMP #### [facility] [address] [place] [address] Dr. Norbert Polk SPEC GRAVITY 1.010 Normal 1.005-<=1.025 [facility] Comment on above: Performed By: #### B CABLE MAKER, CMP #### [facility] [address] [address] [address] Norbert Polk UA PROTEIN Negative Normal NEGATIVE/ TRACE The [facility] Comment on above: Performed By: #### B CABLE MAKER, CMP #### [facility] [address] [address] [address] Norbert Polk UR MICRO IND NOT INDICATED Normal The [facility] Comment on above: Performed By: #### B CABLE MAKER, CMP #### [facility] [address] [address] [address] Norbert Polk Urobilinogen Qn (U) 0.2 {Karan'U}/dL Normal 0.2 - 1. 0 [facility] Comment on above: Performed By: #### B CABLE MAKER, CMP #### [facility] [address] [place] [address] Dr. Norbert Polk LACTATE/LACTIC ACIDon 2022 Lactate [Moles/Vol] 2.5 mmol/L Critically high 0.4-2.0 [facility] Comment on above: Performed By: #### C MP, CMADM, BNP #### [facility] [address] [place] [address] Dr. Norbert Polk Lactate [Moles/Vol] 3.8 mmol/L Critically high 0.4-2.0 [facility] Comment on above: Performed By: #### P OCGLUC #### [facility] [address] [place] [address] Dr. Norbert Polk POINT OF CARE GLUCOSEon 12-21 Glucose [Mass/Vol] 197 mg/dL Critically high 74-106 T [facility] Comment on above: Performed By: #### B CABLE MAKER, CMP #### [facility] [address] [place] [address] Dr. Norbert Polk PROF 14(COMP METB)on 023 Albumin [Mass/Vol] 3.0 g/dL Critically low 3.4-5.0 [facility] Comment on above: Performed By: #### C MP, CMADM, BNP #### [facility] [address] [place] [address] Dr. Norbert Polk Albumin/Globulin [Mass ratio] 0.7 {ratio} Normal [facility] Comment on above: Performed By: #### C MP, CMADM, BNP #### [facility] [address] [address] [address] Norbert Polk ALP [Catalytic activity/Vol] 70 U/L Normal 46-116 [facility] Comment on above: Performed By: #### C MP, CMADM, BNP #### [facility] [address] [address] [address] Norbert Polk ALT [Catalytic activity/Vol] 22 U/L Normal 16-63 [facility] Comment on above: Performed By: #### C MP, CMADM, BNP #### [facility] [address] [address] [address] Norbert Polk Anion gap [Moles/Vol] 15.3 mmol/L Normal [facility] Comment on above: Performed By: #### C MP, CMADM, BNP #### [facility] [address] [address] [address] Norbert Polk AST [Catalytic activity/Vol] 16 U/L Normal 15-37 [facility] Comment on above: Performed By: #### C MP, CMADM, BNP #### [facility] [address] [address] [address] Norbert Polk Bilirubin [Mass/Vol] 0.2 mg/dL Normal 0.2-1.0 [facility] Comment on above: Performed By: #### C MP, CMADM, BNP #### [facility] [address] [address] [address] Norbert Polk Calcium [Mass/Vol] 10.1 mg/dL Normal 8.5-10.1 [facility] Comment on above: Performed By: #### C MP, CMADM, BNP #### [facility] [address] [address] [address] Norbert Polk Chloride [Moles/Vol] 106 mmol/L Normal 98-107 [facility] Comment on above: Performed By: #### C MP, CMADM, BNP #### [facility] [address] [address] [address] Norbert Polk CO2 [Moles/Vol] 24.6 mmol/L Normal 21.0-32.0 [facility] Comment on above: Performed By: #### C MP, CMADM, BNP #### [facility] [address] [address] [address] Norbert Polk Creatinine [Mass/Vol] 2.40 mg/dL Critically high 0.70-1.30 [facility] Comment on above: Performed By: #### C MP, CMADM, BNP #### [facility] [address] [address] [address] Norbert Polk EGFR-AF NICARAGUAN 31 mL/min/1.73m2 Critically low >=60 [facility] Comment on above: Performed By: #### C MP, CMADM, BNP #### [facility] [address] [address] [address] Norbert Polk EGFR-NON AF NICARAGUAN 26 mL/min/1.73m2 Critically low >=60 [facility] Comment on above: Performed By: #### C MP, CMADM, BNP #### [facility] [address] [address] [address] Norbert Polk Globulin (S) [Mass/Vol] 4.5 g/dL Normal [facility] Comment on above: Performed By: #### C MP, CMADM, BNP #### [facility] [address] [address] [address] Norbert Polk Glucose [Mass/Vol] 174 mg/dL Critically high 74-106 T [facility] Comment on above: Performed By: #### C MP, CMADM, BNP #### [facility] [address] [address] [address] Norbert Polk Potassium [Moles/Vol] 4.9 mmol/L Normal 3.5-5.1 [facility] Comment on above: Performed By: #### C MP, CMADM, BNP #### [facility] [address] [address] [address] Norbert Polk Protein [Mass/Vol] 7.5 g/dL Normal 6.4-8.2 The [facility] Comment on above: Performed By: #### C MINISTERIO HILL, BNP #### [facility] [address] [place] [address] Dr. Norbert Polk Sodium [Moles/Vol] 141 mmol/L Normal 136-145 The [facility] Comment on above: Performed By: #### C MINISTERIO HILL, BNP #### [facility] [address] [place] [address] Dr. Norbert Polk Urea nitrogen [Mass/Vol] 60.0 mg/dL Critically high 7.0-18.0 [facility] Comment on above: Performed By: #### C MINISTERIO HILL, BNP #### [facility] [address] [place] [address] Dr. Norbert Polk Urea nitrogen/Creatinine [Mass ratio] 25.0 mg/mg Normal [facility] Comment on above: Performed By: #### C MINISTERIO HILL, BNP #### [facility] [address] [place] [address] Dr. Norbert Polk PROTIMEon 01-09-2023 INR Coag (PPP) [Relative time] 1.02 {INR} Normal The [facility] Comment on above: Performed By: #### P OCGLUC #### [facility] [address] [place] [address] Dr. Norbert Polk INR GUIDELINES SEE BELOW Normal The [facility] Comment on above: Result Comment: BECKIE RED INR: 2.0 - 3.0 CONDITIONS NOT LISTED BELOW 2.5 - 3.5 FOR PROSTHETIC HEART VALVE REPLACEMENT 2.5 - 3.5 RECURRENT THROMBOSIS Performed By: #### P OCGLUC #### [facility] [address] [place] [address] Dr. Norbert Polk PT Coag (PPP) [Time] 10.8 s Normal 9.0-11.6 [facility] Comment on above: Performed By: #### P OCGLUC #### [facility] [address] [place] [address] Dr. Norbert Polk PTTon 01-09-2023 aPTT Coag (Bld) [Time] 25.2 s Normal 22.3-36.2 [facility] Comment on above: Performed By: #### P OCGLUC #### [facility] [address] [place] [address] Dr. Norbert Polk SPUTUM GRAM STAINon 01-10-20 COMMENTS NO ORGANISMS OBSERVED Normal [facility] Comment on above: Performed By: #### B CABLE MAKER, CMP #### [facility] [address] [place] [address] Dr. Norbert Polk DIPHTHEROIDS Normal [facility] Comment on above: Performed By: #### B CABLE MAKER, CMP #### [facility] [address] [place] [address] Dr. Norbert Polk EPITHELIALS <25 Normal [facility] Comment on above: Performed By: #### B CABLE MAKER, CMP #### [facility] [address] [place] [address] Dr. Norbert Polk FUNGAL ELEMENTS Normal [facility] Comment on above: Performed By: #### B CABLE MAKER, CMP #### [facility] [address] [place] [address] Dr. Norbert Polk GRAM NEG BACILLI Normal [facility] Comment on above: Performed By: #### B CABLE MAKER, CMP #### [facility] [address] [place] [address] Dr. Norbert SHAW NEG DIPPLOCOCCI Normal [facility] Comment on above: Performed By: #### B CABLE MAKER, CMP #### [facility] [address] [place] [address] Dr. Norbert Polk GRAM POS BACILLI Normal [facility] Comment on above: Performed By: #### B CABLE MAKER, CMP #### [facility] [address] [place] [address] Dr. Norbert Polk GRAM POSITIVE COCCI Normal [facility] Comment on above: Performed By: #### B CABLE MAKER, CMP #### [facility] [address] [place] [address] Dr. Norbert Polk WBC (Bld) [#/Vol] 10*3/uL [facility] Comment on above: Performed By: #### B CABLE MAKER, CMP #### [facility] [address] [address] [address] Norbert Polk XR CHEST 1 Von [...] by: KORI KERR Date: 2023-01-09 15:12 Normal [facility] CT CSPINE WO CONon 3 CT CSPINE WO CON EXAMINATION: CT CSPINE WO CON HISTORY: HEADACHE COMPARISON: None. TECHNIQUE: [...] by: JANET EDMONDSON Date: 2023-01-05 11:50 Normal [facility] CT STROKE HEAD WOon 01-06-[address] STROKE HEAD WO EXAMINATION: CT STROKE HEAD WO HISTORY: Clouded consciousness (finding) ; [...] by: VALENTÍN ZIMMERMAN Date: 2023-01-05 11:51 Normal The [facility] Office Visiton 01-01-2023 Follow-up visit [id number] Jose Ferreira 1940 M Date Provider Department Center 01/01/2023 Rod-ELYSE DENSON [facility] Family History Problem Relation Age of Onset Cancer Father Alcohol abuse Father Family Status - Relation Status Age at Father Level of Service:05516 [place] OFFICE/OUTPATIENT ESTABLISHED HIGH [facility] 40-54 MIN Reason for Visit and Comments: Atrial Fibrillation [80] Coronary Artery Disease [187] Congestive Heart Failure [127] history of GI bleed [Other] Normal [facility] Coding Summary.on 12-23-2022 Coding Summary. CD:[id number] G h0bWw+PGhlYWQ+SX1PMCT dR85mzTDzwH7NY8bIBV2L JUSPEHWGWJ3TFZ4roZT6K PucF3FoyzSg FvwxaQYtGK60PQl0IZT4v ScvQEwaaK7iqQHfI6n2Zh RyWQ27iL33EDfgBDWoTqY 3LjZpbjsgbWFy J8wrOfUnhHGePyj+PHRhY mxlIHdpZHRoPScxMDAlJy TgqMfuZS4pHk2wQWFzGAC vbGxhcHNlOiBj a7voBWUhOZarSA1sjQzyH 3QkhRK8IWQql5t1Zd28fC I+AAVuALN7yQenFZwkx95 1VxSyn6qzZGT4 bWNpKXstUTO4Z12dj1V8O QKiILZtSZG7jGH3oM9gzT mysriqE0DijDHmOcT5GGM 3pKEcfH4ipIgm phjcrU4aIwg+X43QVH0EK RJDWJ9TZzl9L6JqMnckdX I+KQ19JAPrMC06jALtjOS rq7lthJq5CzZc YCAkWZF0vImaEDlbl3AtB XHkU85dnCYrc5C1NZMssN demRSxMeTxrKP5rW1cZIp yyerpe9hfyihq Kpxrf2epjp36nU85C51yR BkhFMWmULI3FVTiIYTxjZ qzxx3cfX5yEe2+UTjsj0r yc0funQl6CcLw BQFuxkTqjCzhDOD1j4FcG i08V7FxoTvwo6WeWhj8pd 69fYPha9W6rUI2UNjyWWI nyQ3jLKjuWmA3 XFHzGtPtdM65kYSuSUtfJ y4ybRshyXqqLG1pLFUwda suBYNgkU2hFFXftOQegHj sMK4tXIOgjasz u810WtAdHTQ7LPBdxVVaE 7WmyZ5mQrCmGPUjIVRvF3 JayXGkBMnhE357BIovPtM 6LKAisrPzQ2Lr LTOfhKkpKoT0e8J9Cf2Cc 8PrjkfiSHR5QWgyNKFxVc G8YqNfVvD0W8JvJwp4JSU ljFhwUT9xF7Ow REJkhldypgskzYQ7TZZlB OSmiQ64mSUtQLvkQk2ka6 R0g814VWUgHYCxdB90Rl8 udDogMTBwdCBU xN7jwwria4ccnersCwIdD TUxJHz7JXl9PIAphEgdZo AdQZR3WsG2UGL2dJBmgH9 pwGukhfrckX7f Oyc+S53tzA0tSCZ6UTT6j ffxXIMuwlXlPX80QB61O3 RyPjwvdGFibGU+PGRpdiB vaSbwZE7wKlWz z7erd7LeGCfgU1WgJMUfD BnmFzn0PYVeAAR7aEG7mL 9lLNJhAJptu6U8pCA1X2P xwuMcgl8iv1ax CKKmCIapU61ocXRxj7M2T AElbQG8JYNsqHzaAwXopO 93Oyc+CIYtrZmmu7AnWod ug1jjt3awqDc6 SvOiXRGmigYdpTteWMJ2t 5WkOq50I95tGSgnZNDpAE QeJQXqMCAhlJeimg1hbD5 wIi8+PGNvbCB3 fMH4hF3vCOOkDsN1MHgpG 738FrBwuUPrSajgv9mko5 amlXq5MyKkJBGdkyXdoVr gIYJ8n5ZiCm55 Q43jNOdrAWBaWSFfARZiF TWkiRufqe6rsO4eBz2+PC 8js5ymjs43jE82pCW+PHR eTSU1rTqeVOit UWCegZ5pTPbiFaH7HOPhL iDliR39fJIcGAmxTa5csI ugeFwmHF2tKMQyacvgm18 4AfBbw9ekTFTh sVVlPSvfJLS7Q77gh3Q9B CWjCPCcKTR6oVQ9uK8ayP lnbjogbGVmdDsgdmVydGl aUKyjHBrnX830 IHRvcDsnPlBhdGllbnQgT lSeFCx2C0BmYgg0ZUZkrK aeVV7trPGrOXclVq4doJt exLkgUV7ySSWp pewks344XtRae8vcNIJdj FVjVWjpMZH6O51dx5A1TT AiIPWuESX9sKO0kE7utZv nbjogbGVmdDsg feYldAskBEkbLNtrA871H HRvcDsnPkJpcnRoIERhdG D6EY69CH17fGVru6G7fST 0U3SlQVHgufps iwahlRB5WDZcSMEctC42H c7jzDjiUx4qVNFpPDF4OF UruBFyW6XgkJ2oXaGwDVH cWRUfS1AgoWRm OPnnM505VAlePbV3SCXhb hYoG5EgWXTrmVbzOgK4f7 Y9Xp9FL5O9ZS79PC74uCO ju6D2tCJ5J5Ml ZUHbpqkrguaywVM0IJJzF DKvkG73Pk8miDpjFb3uWW YeMDR1DDDkqKUsS2DvlF1 yOiAjMDAwMDAw V4SbqYPqYObwQ769YOuaQ pY0HVLvewPxN8VvPDJsiU jpTcD0z5Y6Mt8XTSc8MK1 4RR64yGFwi2C8 fLC2W5AcIIDqpkfnkowom NR1CPMzKTPpfE43Qw4gpS asGz0aRTFcXNZ8EWGosZT vU3DfoM3jJuZw GCPbMHSdL9GjqDHuLYwfT 267WUcoPrI6VZQkliLqM0 KmGCEjpUbgFzA4h1O7Ut2 PFOQhVT41UMD4 iGL2JC89YL64U5AyRrocm GFibGU+PHRhYmxlIHdpZH RoPScxMDAlJyBzdHlsZT0 wBl6rXPPlXLJe cCwhaUUlThBij1oiTEEfO PxoBH0maWhfM3BwuEL4FR Ijm4e5Wd62N10wQ5PtlVR +MSZakQD8sTB8 bO4uHwAhQqX6PUpwA493T nKuzIHxXgjov9qmw6jbzI i6YvQ1EIIzuoAdqFkrDAA 3j6RuJg68V66c IHdpZHRoPSIxNSUiIHZhb Oywmk7vrF7nVc0+PGNvbC Z5sLE2kN4cWkJxNjC8YRg vM085KbKjyJQz Akhpr9jbt7viuHm6QxVkA ROtcjCubQkjWOH1a3CcVt 10P8QkeIvrb8UmFjm7zg3 9sHQtc2A2fMJ1 A5IdKFSsbeqjnWZsmEakK M4vPCRaccxeWPPxlB8xPC DuK3d0UrXqRhC8FZfmA1C wyjA3FYPzxFPu JKahSZZ6U47lk9A0DXHcK CMrGMG7jJU2bB5mgVyzsm ogbGVmdDsgdmVydGljYWw fSNztH383XLFg wAgbRFTlgL3zNZJxcTQqt NwqEK9aRCEwlhrlGiGNXl XYJNBnDTaWW4VHJCDUCX9 1VB26uAZtr7X1 gSF5Z4KbSJDdyggbthhuq CN1OYXyBMWgdL01aLNsEC zfLk9ca1M4m986DIPpMGT tsR08Ch6jwWwb SADaaNHIuB9itqxun9wce wgzGgBqYVOuKYa6MVn0JU PntRapXkPdGNP5MoO1JKV 7lSRgdN1suYkg murbrZ1pQyf+MDcvMDQvM TkzODwvdGQ+HCQpOPK8xW hpAKdvZXPrcV3zJSWcS9d 2DfYeEkN5MRys S7GlKHBfmwqdTp19eE2gZ iBpXhF5VEcxR6FistC9KR RhnYFgRNqjKOC4G15im1A 5HLPdRXXuWKQ6 pUX2bG5lmQimxwivxWOae DsgdmVydGljYWwtYWxpZ2 95SOOhvNzrSjw0YWxvRNE sCA89ZH04mLUy t1L6qUL1P4TsESRrvpwoo hcxhVU7WBAhQRMppE26uN OeWWbyNo2vu7I2g247WPF nLAMtlE22Ws9p qDepDBXswZZUrR7kdvvpt 6gvbbirBoPwFQIpXRu7LA c5SHUujHfyTyFmEGA3DmO 8TCB4kAJcxZ7w nPgbjdwzvW0fAur+TWFsZ TwvdGQ+GEZrWMB3mAjrWQ avRNTirW9sMJAfM3u0JfV gClR7SXlcB1Xu COCzmbztXc75qA0kSbIkH zZ6RIgiX6ErjpN3TBBtkM EpDGetPUY6B45ta7U5PGG wMIOoITZ3oVZ0 dX0heDjhkcriuWLwfNicj wAnnJdvWAiiVEciA670NK BusHawAgeqYbGTdp3bUI3 mZjwvdGQ+PC90 oj52K0IwHknvJiu0TDQoW RH8pBY6hT5xWOXkMJxyl2 M0gBV7L7BqkzGmzq9lz3a kNGBgAYfnL16b xZZsr8R9KKPdtRA6DOXtp NweHqIjiJ42Rsl+PGNvbG nfo4IhNsbkr3eam7fulPe 9IjMwJSIgdmFs bUlcDBO3k3VgNx11I15yN HdpZHRoPSIzMCUiIHZhbG yohg1rkC4gSc5+PGNvbCB 3uNI6uM1hLrFd IdS8WMnhZ734UaHkrUSrS bvej5rue8knxNm0CxHpUL JaosOmsSclEXU6w9KmPx5 4Z3RyfGmbp2Jf Luh1xl16hRAup4B4jOJ3U 3BhZGRpbmctbGVmdDogMC 8cBAHqidvgZXHozS2gTYK eK0c5EyXjBlE8 QGmeB4XrgcF4EHXssBBlQ RLjtHUBrV2rsezop7qxyo wdWcTnJCKeXId8DJq7HVA saWduOiBsZWZ0 LiG3HGB4gPSiwY5hyBzyb pudgA7aIsv+PFv7u4fdxI HhRV6cfPS9LT18PS11oQG pi2J3wAW8U8Se HUKysgwyncswfIV6LHLbV OXruL88Nd0xuSaoDe1sAF EwISZ7RQFicNEaN7IjeU9 yOiAjMDAwMDAw M4YjiSLcHHhkR005MCtsP pZ7PKZcneRtY1CcCDEleG roIkJ0h5W7Sa4GRK59MR3 3KG08bCKun2W9 iTO0S6ArBXEkidpnrcjpr JI1BTCwPVQthI45Xp1chD vkEk5wNYIwBFB7QSUxoOT pG8SlmO1mHrKv TQBoHDEgD3PunMIuQAsmS 323LSzuFcC0SGCzzhLaB3 ZmYGWynTysStD2a4Q5Gm6 NNo02HB17PX41 hATas3E4rWF5N7VhVWNuk mpkvdonjPS8MBNpMJQjuX 16Ro0lfYdzGq6kAWBoMGH 9ISSjzGDdL1Ct qR5oZdElYOJzMVBpC0Vly IRbMQmxH473WKrsCgJ2GU UfqzZnP8PsTTWaaSdkDkU 4m0T3Bj0WFKxb owg1B5LoWqkkoRW+PC90Y QFpAF10jTCsdUYvs0gvlJ b7PpYsBIQyUWV3fZauPSe qp0UiMPDoO83r bGFw (more content not included)... Normal [facility] Living Will/POAon 12-19-2022 Living Will/POA [id number]:[id number] Normal [facility] Ambulatory Visit Summaryon 0 12-18-2022 Ambulatory Visit Summary JOSE FERREIRA :1940 Visit Date:12/18/2022 Ambulatory Visit Instructions Your Diagnosis H/O prostate cancer Mixed incontinence Kidney stone Your Care Team Attending Physician - YADY SALCIDOOzzy Primary Care Physician - Farzad Dodson MD This Is Your Medications List Contact prescribing physician if questions or concerns albuterol alprazolam (alprazolam 1 mg Tab) aspirin (aspirin 325 mg Tab) atropine-diphenoxylat e (Lomotil) calcium-vitamin D (Super Calcium 600 + D3 400) cholecalciferol (Vitamin D3) cilostazol (cilostazol 50 mg Tab) colesevelam (Welchol) fluticasone nasal (fluticasone 0.05 mg/inh Nasal [place]) furosemide (furosemide 20 mg Tab) gabapentin (gabapentin [...] Follow-Up Appointments Sunday 11:15 AM EDT With: Ozzy CONTEH MD Where: [facility] Normal [facility] CHEMISTRYOrdered By: SYSTEM SYSTEM on 12-18-2022 Prostate specific Ag [Mass/Vol] 0.5 ng/mL Normal 0.1 - 3.5 ng/mL [facility] [place] Remisol PSA Totalon 12-18-2022 Prostate specific Ag [Mass/Vol] 0.5 ng/mL Normal 0.1-3.5 [facility] Comment on above: Result Comment: The concentration of PSA determined by different manufacturers can vary due to differences in assay methods and reagent specificity. Values obtained from different assay methods cannot be used interchangeably. The methodology used for this result was chemiluminescence using [employer]ande Clune's Access Hybrite[employer] PSA reagent. Performed By: #### 1 [id number] ####[facility] [id number] [place] [address] Patient Educationon 12-18-19 23 Patient Education Urology Dietary Guidelines to Help [...] Rhubarb. ? Beets. ? Potato chips and setswana fries. ? Nuts. ? If you regularly take a diuretic medicine, make sure to eat at least 1?2 fruits or vegetables high in potassium each day. These include: ? Avocado. ? Banana. ? Coleman, prune, carrot, or tomato juice. ? Baked [...] Baudilio hussein (more content not included)... Normal [facility] Urology Office/Clinic Noteon 12-18-2022 Urology Office/Clinic [...] today, pt has an indwelling catheter. Using [facility] based in [place]. 3. Kidney stone (N20.0: Calculus of kidney) Pt states that he passed a stone into his dal[place] bag about a year ago but has had no issues since. Follow-up With When Contact Information YADY SALCIDO, Ozzy Velasquez, URL [facility] [address], [place] [address]- Additional Instructions: 6 mos with PSA Patient [...] 50 mg Tab fluticasone 0.05 mg/inh Nasal [place], Nasal, Daily furosemide 20 mg Tab, 40 [...] Results Te (more content not included)... Normal [facility] Comment on above: Result Comment: Elec tronically Signed By: YADY SALCIDO, Ozzy Rubi.br\Date and Time Signed: 12/18/22 13:42 EST\.br\Electronically Co-Signed By: Kelsey Shirley\.br\Date and Time Co-Signed: 12/18/22 13:41 EST CULTURE SPUTUMon 12-05-2022 CULTURE SPUTUM Isolate 1 Lida albicans Light growth of Normal The [facility] Comment on above: Performed By: #### B CABLE MAKER, CMP #### [facility] [address] [address] [address] Norbert Polk SPUTUM GRAM STAINon 12-05-19 COMMENTS Normal [facility] Comment on above: Performed By: #### B CABLE MAKER, CMP #### [facility] [address] [place] [address] Dr. Norbert Polk DIPHTHEROIDS [facility] Comment on above: Performed By: #### B CABLE MAKER, CMP #### [facility] [address] [place] [address] Dr. Norbert Polk EPITHELIALS >25 Normal The [facility] Comment on above: Performed By: #### B CABLE MAKER, CMP #### [facility] [address] [address] [address] Norbert Polk FUNGAL ELEMENTS Normal [facility] Comment on above: Performed By: #### B CABLE MAKER, CMP #### [facility] [facility] [address] [address] [address] Norbert SHAW NEG BACILLI [facility] Comment on above: Performed By: #### B CABLE MAKER, CMP #### [facility] [address] [address] [address] Norbert SHAW NEG DIPPLOCOCCI Normal [facility] Comment on above: Performed By: #### B CABLE MAKER, CMP #### [facility] [address] [address] [address] Norbert SHAW POS BACILLI FEW [facility] Comment on above: Performed By: #### B CABLE MAKER, CMP #### [facility] [address] [address] [address] Norbert Polk GRAM POSITIVE COCCI FEW Normal [facility] Comment on above: Performed By: #### B CABLE MAKER, CMP #### [facility] [address] [place] [address] Dr. Norbert Polk WBC (Bld) [#/Vol] 10*3/uL Normal [facility] Comment on above: Performed By: #### B CABLE MAKER, CMP #### [facility] [address] [place] [address] Dr. Norbert Polk CULTURE URINEon 12-03-2022 CULTURE URINE Isolate 1 Klebsiella oxytoca >100,000 cfu/mL of Isolate 2 Pseudomonas aeruginosa >100,000 cfu/mL of Isolate 3 Enterococcus faecalis >100,000 cfu/mL of ORGANISM 2 Pseudomonas aeruginosa ANTIBIOTIC M.I.C RX STATUS Piperacillin/Tazobact am <=4 S F Ceftazidime <=1 S F Imipenem 0.5 S F Amikacin <=2 S F Gentamicin <=1 S F Tobramycin 2 S F Ciprofloxacin <=0.25 S F Levofloxacin 0.5 S F ORGANISM 1 Klebsiella oxytoca ANTIBIOTIC M.I.C RX STATUS Ampicillin >=32 R F Ampicillin/Sulbactam 8 S F Piperacillin/Tazobact am <=4 S F Cefazolin <=4 S F Ceftazidime <=1 S F Ceftriaxone <=1 S F Ertapenem <=0.5 S F Imipenem <=0.25 S F Amikacin <=2 S F Gentamicin <=1 S F Tobramycin <=1 S F Ciprofloxacin <=0.25 S F Levofloxacin <=0.12 S F Nitrofurantoin <=16 S F Trimethoprim/Sulfamet hoxazole <=20 S F ORGANISM 3 Enterococcus faecalis ANTIBIOTIC M.I.C RX STATUS Beta-Lactamase Neg NEG F Benzylpenicillin 1 S F Ampicillin <=2 S F Gentamicin High Level (synergy) SYN-S S F Streptomycin High Level (synergy) SYN-S S F Ciprofloxacin <=0.5 S F Levofloxacin 1 S F Quinupristin/Dalfopri stin 2 R F Linezolid 2 S F Vancomycin 1 S F Tetracycline >=16 R F Nitrofurantoin <=16 S F Normal [facility] Comment on above: Performed By: #### B CABLE MAKER, CMP #### [facility] [address] [place] [address] Dr. Norbert Polk BNPon 11-30-2022 Natriuretic peptide B (Bld) [Mass/Vol] 1921.0 pg/mL Critically high <=1,800.0 The [facility] Comment on above: Performed By: #### B CABLE MAKER, CMP #### [facility] [address] [place] [address] Dr. Norbert Polk CBC AUTO DIFFon 11-30-2022 BASO # 0.1 103/ul Normal 0.0-0.1 [facility] Comment on above: Performed By: #### C MP, CMADM, BNP #### [facility] [address] [place] [address] Dr. Norbert Polk Basophils/100 WBC (Bld) 0.5 % Normal 0.2-2.0 [facility] Comment on above: Performed By: #### C MP, CMADM, BNP #### [facility] [address] [place] [address] Dr. Norbert Polk EO # 0.9 103/ul Critically high 0.0-0.7 The [facility] Comment on above: Performed By: #### C MP, CMADM, BNP #### [facility] [address] [place] [address] Dr. Norbert Polk Eosinophils/100 WBC (Bld) 8.9 % Critically high 0.9-7.0 [facility] Comment on above: Performed By: #### C MP, CMADM, BNP #### [facility] [address] [place] [address] Dr. Norbert Polk Erythrocyte distribution width (RBC) [Ratio] 14.6 % Normal 11.0-15.0 [facility] Comment on above: Performed By: #### C MP, CMADM, BNP #### [facility] [address] [place] [address] Dr. Norbert Polk Hematocrit (Bld) [Volume fraction] 29.8 % Critically low 42.0-54.0 [facility] Comment on above: Performed By: #### C MP, CMADM, BNP #### [facility] [address] [place] [address] Dr. Norbert Polk Hemoglobin (Bld) [Mass/Vol] 9.5 g/dL Critically low 14.0-18.0 The [facility] Comment on above: Performed By: #### C MP, CMADM, BNP #### [facility] [address] [address] [address] Norbert Polk IG # 0.04 10e3/ul Critically high 0.00-0.03 [facility] Comment on above: Performed By: #### C MP, CMADM, BNP #### [facility] [address] [address] [address] Norbert Polk IG % 0.4 % Normal 0.0-0.5 [facility] Comment on above: Performed By: #### C MP, CMADM, BNP #### [facility] [address] [place] [address] Dr. Norbert Polk LYMPH # 3.1 103/ul Normal 1.2-3.8 The [facility] Comment on above: Performed By: #### C MP, CMADM, BNP #### [facility] [address] [place] [address] Dr. Norbert Polk Lymphocytes/100 WBC (Bld) 30.9 % Normal 20.5-60.0 [facility] Comment on above: Performed By: #### C MP, CMADM, BNP #### [facility] [address] [place] [address] Dr. Norbert Polk MANUAL DIFF REQ NO Normal [facility] Comment on above: Performed By: #### C MP, CMADM, BNP #### [facility] [address] [place] [address] Dr. Norbert Polk MCH (RBC) [Entitic mass] 30.8 pg Normal 25.9-34.0 [facility] Comment on above: Performed By: #### C MP, CMADM, BNP #### [facility] [address] [place] [address] Dr. Norbert Polk MCHC (RBC) [Mass/Vol] 31.9 g/dL Normal 29.9-35.2 The [facility] Comment on above: Performed By: #### C MP, CMADM, BNP #### [facility] [address] [place] [address] Dr. Norbert Polk MCV (RBC) [Entitic vol] 96.8 fL Critically high 80.0-94.0 [facility] Comment on above: Performed By: #### C MP, CMADM, BNP #### [facility] [address] [place] [address] Dr. Norbert Polk MONO # 0.7 103/ul Normal 0.3-0.8 The [facility] Comment on above: Performed By: #### C MP, CMADM, BNP #### [facility] [address] [place] [address] Dr. Norbert Polk Monocytes/100 WBC (Bld) 7.1 % Normal 1.7-12.0 [facility] Comment on above: Performed By: #### C MP, CMADM, BNP #### [facility] [address] [place] [address] Dr. Norbert Polk NEUT # 5.3 103/ul Normal 1.4-6.5 [facility] Comment on above: Performed By: #### C MP, CMADM, BNP #### [facility] [address] [place] [address] Dr. Norbert Polk Neutrophils/100 WBC (Bld) 52.2 % Normal 43.0-75.0 [facility] Comment on above: Performed By: #### C MP, CMADM, BNP #### [facility] [address] [place] [address] Dr. Norbert Polk Platelet mean volume (Bld) [Entitic vol] 10.0 fL Normal 9.5-13.5 [facility] Comment on above: Performed By: #### C MP, CMADM, BNP #### [facility] [address] [place] [address] Dr. Norbert Polk PLT 195 103/ul Normal 150-450 The [facility] Comment on above: Performed By: #### C MP, CMADM, BNP #### [facility] [address] [place] [address] Dr. Norbert Polk RBC 3.08 106/ul Critically low 4.70-6.10 The [facility] Comment on above: Performed By: #### C MP, CMADM, BNP #### [facility] [address] [place], [place] [address] Dr. Norbert Polk WBC 10.1 103/ul Normal 4.0-11.0 [facility] Comment on above: Performed By: #### C MP, CMADM, BNP #### [facility] [address] [place], [place] [address] Dr. Norbert Polk ECHOCARDIO M/2D COMPLETEon 0 11-30-2022 ECHOCARDIO M/2D COMPLETE Patient: JOSE FERREIRA Exam Date: 11/30/2022 : 1940 Gender:M Ordering : DR FARZAD DODSON . Admission #: [id number] Family : DR DES MCALLISTER M.D. Order #: [id number] CLICK HERE TO VIEW EXAM ECHOCARDIOGRAM REPORT [...] M.D. on 11/30/2022 at 19:32 Normal The [facility] INFLUENZA A AND B AGon 11-30 INFLUANEGH SEE BELOW Normal The [facility] Comment on above: Result Comment: Nega tive for Flu A protein angiten. Infection due to Flu A cannot be ruled out. Flu A angiten in the sample may be below the detection limit of the test. Performed By: #### C MP, CMADM, BNP #### [facility] [address] [place] [address] Dr. Norbert Polk [facility] SEE BELOW Normal [facility] Comment on above: Result Comment: Nega tive for Flu B protein antigen. Infection due to Flu B cannot be ruled out. Flu B antigen in the sample may be below the detection limit of the test. Performed By: #### C LIZ CMADM, BNP #### [facility] [address] [place] [address] Dr. Norbert Polk INFLUENZA A AG Negative Normal NEGATIVE SEE COMMENT [facility] Comment on above: Performed By: #### C LIZ CMADM, BNP #### [facility] [address] [place] [address] Dr. Norbert Polk INFLUENZA B AG Negative Normal NEGATIVE SEE COMMENT [facility] Comment on above: Performed By: #### C MINISTERIO HILL, BNP #### [facility] [address] [place] [address] Dr. Norbert Polk POINT OF CARE GLUCOSEon Glucose [Mass/Vol] 325 mg/dL Critically high 74-106 [facility] Comment on above: Performed By: #### P OCGLUC #### [facility] [address] [place] [address] Dr. Norbert Polk Glucose [Mass/Vol] 236 mg/dL Critically high 74-106 [facility] Comment on above: Performed By: #### P OCGLUC #### [facility] [address] [place] [address] Dr. Norbert Polk PROF 14(COMP METB)on 023 Albumin [Mass/Vol] 2.9 g/dL Critically low 3.4-5.0 [facility] Comment on above: Performed By: #### B CABLE MAKER, CMP #### [facility] [address] [place] [address] Dr. Norbert Polk Albumin/Globulin [Mass ratio] 0.9 {ratio} Normal [facility] Comment on above: Performed By: #### B CABLE MAKER, CMP #### [facility] [address] [place] [address] Dr. Norbert Polk ALP [Catalytic activity/Vol] 51 U/L Normal 46-116 [facility] Comment on above: Performed By: #### B CABLE MAKER, CMP #### [facility] [address] [address] [address] Norbert Polk ALT [Catalytic activity/Vol] 14 U/L Critically low 16-63 [facility] Comment on above: Performed By: #### B CABLE MAKER, CMP #### [facility] [address] [address] [address] Norbert Polk Anion gap [Moles/Vol] 12.7 mmol/L Normal [facility] Comment on above: Performed By: #### B CABLE MAKER, CMP #### [facility] [address] [address] [address] Norbert Polk AST [Catalytic activity/Vol] 14 U/L Critically low 15-37 [facility] Comment on above: Performed By: #### B CABLE MAKER, CMP #### [facility] [address] [address] [address] Norbert Polk Bilirubin [Mass/Vol] 0.1 mg/dL Critically low 0.2-1.0 [facility] Comment on above: Performed By: #### B CABLE MAKER, CMP #### [facility] [address] [address] [address] Norbert Polk Calcium [Mass/Vol] 9.3 mg/dL Normal 8.5-10.1 [facility] [place] [facility] Comment on above: Performed By: #### B CABLE MAKER, CMP #### [facility] [address] [address] [address] Norbert Polk Chloride [Moles/Vol] 106 mmol/L Normal 98-107 [facility] Comment on above: Performed By: #### B CABLE MAKER, CMP #### [facility] [address] [address] [address] Norbert Polk CO2 [Moles/Vol] 26.2 mmol/L Normal 21.0-32.0 [facility] Comment on above: Performed By: #### B CABLE MAKER, CMP #### [facility] [address] [address] [address] Norbert Polk Creatinine [Mass/Vol] 2.16 mg/dL Critically high 0.70-1.30 [facility] Comment on above: Performed By: #### B CABLE MAKER, CMP #### [facility] [address] [address] [address] Norbert Polk EGFR-AF NICARAGUAN 35 mL/min/1.73m2 Critically low >=60 [facility] Comment on above: Performed By: #### B CABLE MAKER, CMP #### [facility] [address] [address] [address] Norbert Polk EGFR-NON AF NICARAGUAN 29 mL/min/1.73m2 Critically low >=60 [facility] Comment on above: Performed By: #### B CABLE MAKER, CMP #### [facility] [address] [place] [address] Dr. Norbert Polk Globulin (S) [Mass/Vol] 3.4 g/dL Normal [facility] Comment on above: Performed By: #### B CABLE MAKER, CMP #### [facility] [address] [place] [address] Dr. Norbert Polk Glucose [Mass/Vol] 185 mg/dL Critically high 74-106 [facility] Comment on above: Performed By: #### B CABLE MAKER, CMP #### [facility] [address] [place] [address] Dr. Norbert Polk Potassium [Moles/Vol] 4.9 mmol/L Normal 3.5-5.1 [facility] Comment on above: Performed By: #### B CABLE MAKER, CMP #### [facility] [address] [place] [address] Dr. Norbert Polk Protein [Mass/Vol] 6.3 g/dL Critically low 6.4-8.2 Th [facility] Comment on above: Performed By: #### B CABLE MAKER, CMP #### [facility] [address] [place] [address] Dr. Norbert Polk Sodium [Moles/Vol] 140 mmol/L Normal 136-145 [facility] [place] [facility] Comment on above: Performed By: #### B CABLE MAKER, CMP #### [facility] [address] [place] [address] Dr. Norbert Polk Urea nitrogen [Mass/Vol] 53.0 mg/dL Critically high 7.0-18.0 [facility] Comment on above: Performed By: #### B CABLE MAKER, CMP #### [facility] [address] [place] [address] Dr. Norbert Polk Urea nitrogen/Creatinine [Mass ratio] 24.5 mg/mg Normal [facility] Comment on above: Performed By: #### B CABLE MAKER, CMP #### [facility] [address] [place] [address] Dr. Norbert Polk BNPon 11-29-2022 Natriuretic peptide B (Bld) [Mass/Vol] 2119.0 pg/mL Critically high <=1,800.0 [facility] Comment on above: Performed By: #### C MP, CMADM, BNP #### [facility] [address] [place] [address] Dr. Norbert Polk CARDIAC JENNA 3-6on 3 CK [Catalytic activity/Vol] 54 U/L Normal 39-308 [facility] Comment on above: Performed By: #### C MP, CMADM, BNP #### [facility] [address] [place] [address] Dr. Norbert Polk CK.MB [Mass/Vol] 3.42 ng/mL Normal <=3.60 [facility] Comment on above: Performed By: #### C MP, CMADM, BNP #### [facility] [address] [place] [address] Dr. Norbert Polk HSTROP 11.0 pg/mL Normal 4.0-76.1 The [facility] Comment on above: Result Comment: CUT- OFF POINTS HAVE BEEN ESTABLISHED BASED ON THE FOURTH UNIVERSAL DEFINITIONS OF MYOCARDIAL INFARCTION. THE UPPER REFERENCE LIMIT (URL) OF TROPONIN, DEFINED THE 99TH PERCENTILE OF cTnI DISTRIBUTION IN A REFERENCE POPULATION, HAS BEEN CONFIRMED THE DECISION THRESHOLD FOR NE DIAGNOSIS. Performed By: #### C MP, CMADM, BNP #### [facility] [address] [place] [address] Dr. Norbert Polk CK [Catalytic activity/Vol] 59 U/L Normal 39-308 The [facility] Comment on above: Performed By: #### C MREP #### [facility] [address] [place] [address] Dr. Norbert Polk CK.MB [Mass/Vol] 4.64 ng/mL Critically high <=3.60 The [facility] Comment on above: Performed By: #### C MREP #### [facility] [address] [place] [address] Dr. Norbert Polk HSTROP 11.5 pg/mL Normal 4.0-76.1 The [facility] Comment on above: Result Comment: CUT- OFF POINTS HAVE BEEN ESTABLISHED BASED ON THE FOURTH UNIVERSAL DEFINITIONS OF MYOCARDIAL INFARCTION. THE UPPER REFERENCE LIMIT (URL) OF TROPONIN, DEFINED THE 99TH PERCENTILE OF cTnI DISTRIBUTION IN A REFERENCE POPULATION, HAS BEEN CONFIRMED THE DECISION THRESHOLD FOR NE DIAGNOSIS. Performed By: #### C MREP #### [facility] [address] [place] [address] Dr. Norbert Polk CBC AUTO DIFFon 11-29-2022 BASO # 0.1 103/ul Normal 0.0-0.1 [facility] Comment on above: Performed By: #### B CABLE MAKER, CMP #### [facility] [address] [place] [address] Dr. Norbert Polk Basophils/100 WBC (Bld) 0.8 % Normal 0.2-2.0 [facility] Comment on above: Performed By: #### B CABLE MAKER, CMP #### [facility] [address] [place] [address] Dr. Norbert Polk EO # 1.4 103/ul Critically high 0.0-0.7 The [facility] Comment on above: Performed By: #### B CABLE MAKER, CMP #### [facility] [address] [place] [address] Dr. Norbert Polk Eosinophils/100 WBC (Bld) 13.6 % Critically high 0.9-7.0 The [facility] Comment on above: Performed By: #### B CABLE MAKER, CMP #### [facility] [address] [place] [address] Dr. Norbert Polk Erythrocyte distribution width (RBC) [Ratio] 14.6 % Normal 11.0-15.0 The [facility] Comment on above: Performed By: #### B CABLE MAKER, CMP #### [facility] [address] [place] [address] Dr. Norbert Polk Hematocrit (Bld) [Volume fraction] 34.3 % Critically low 42.0-54.0 [facility] Comment on above: Performed By: #### B CABLE MAKER, CMP #### [facility] [address] [place] [address] Dr. Norbert Polk Hemoglobin (Bld) [Mass/Vol] 10.9 g/dL Critically low 14.0-18.0 [facility] Comment on above: Performed By: #### B CABLE MAKER, CMP #### [facility] [address] [place] [address] Dr. Norbert Polk IG # 0.05 10e3/ul Critically high 0.00-0.03 [facility] Comment on above: Performed By: #### B CABLE MAKER, CMP #### [facility] [address] [place] [address] Dr. Norbert Polk IG % 0.5 % Normal 0.0-0.5 [facility] Comment on above: Performed By: #### B CABLE MAKER, CMP #### [facility] [address] [place] [address] Dr. Norbert Polk LYMPH # 3.1 103/ul Normal 1.2-3.8 [facility] Comment on above: Performed By: #### B CABLE MAKER, CMP #### [facility] [address] [place] [address] Dr. Norbert Polk Lymphocytes/100 WBC (Bld) 29.9 % Normal 20.5-60.0 The [facility] Comment on above: Performed By: #### B CABLE MAKER, CMP #### [facility] [address] [place] [address] Dr. Norbert Polk MANUAL DIFF REQ NO Normal [facility] Comment on above: Performed By: #### B CABLE MAKER, CMP #### [facility] [address] [place] [address] Dr. Norbert Polk MCH (RBC) [Entitic mass] 31.1 pg Normal 25.9-34.0 [facility] Comment on above: Performed By: #### B CABLE MAKER, CMP #### [facility] [address] [place] [address] Dr. Norbert Polk MCHC (RBC) [Mass/Vol] 31.8 g/dL Normal 29.9-35.2 The [facility] Comment on above: Performed By: #### B CABLE MAKER, CMP #### [facility] [address] [place] [address] Dr. Norbert Polk MCV (RBC) [Entitic vol] 97.7 fL Critically high 80.0-94.0 [facility] Comment on above: Performed By: #### B CABLE MAKER, CMP #### [facility] [address] [place] [address] Dr. Norbert Polk MONO # 0.7 103/ul Normal 0.3-0.8 [facility] Comment on above: Performed By: #### B CABLE MAKER, CMP #### [facility] [address] [place] [address] Dr. Norbert Polk Monocytes/100 WBC (Bld) 6.3 % Normal 1.7-12.0 The [facility] Comment on above: Performed By: #### B CABLE MAKER, CMP #### [facility] [address] [place] [address] Dr. Norbert Polk NEUT # 5.0 103/ul Normal 1.4-6.5 The [facility] Comment on above: Performed By: #### B CABLE MAKER, CMP #### [facility] [address] [place] [address] Dr. Norbert Polk Neutrophils/100 WBC (Bld) 48.9 % Normal 43.0-75.0 The [facility] Comment on above: Performed By: #### B CABLE MAKER, CMP #### [facility] [address] [place] [address] Dr. Norbert Polk Platelet mean volume (Bld) [Entitic vol] 10.1 fL Normal 9.5-13.5 The [facility] Comment on above: Performed By: #### B CABLE MAKER, CMP #### [facility] [address] [place] [address] Dr. Norbert Polk PLT 218 103/ul Normal 150-450 The [facility] Comment on above: Performed By: #### B CABLE MAKER, CMP #### [facility] [address] [place] [address] Dr. Norbert Polk RBC 3.51 106/ul Critically low 4.70-6.10 [facility] Comment on above: Performed By: #### B CABLE MAKER, CMP #### [facility] [address] [place] [address] Dr. Norbert Polk WBC 10.3 103/ul Normal 4.0-11.0 [facility] Comment on above: Performed By: #### B CABLE MAKER, CMP #### [facility] [address] [place] [address] Dr. Norbert Polk CULTURE BLOODon 11-29-2022 Microscopic examination of blood, culture Culture Observations: NO GROWTH AT 5 DAYS. Normal [facility] Comment on above: Performed By: #### B [id number] #### [facility] [address] [place] [address] Dr. Norbert Polk Microscopic examination of blood, culture Culture Observations: NO GROWTH AT 5 DAYS. Normal [facility] Comment on above: Performed By: #### B LDCX2 #### [facility] [address] [place] [address] Dr. Norbert Polk Covid-19 PCR (CVDTB)on SARS-CoV-2 (COVID-19) RNA KAYLIN+probe Ql (Unsp spec) Not detected Normal NOT DETECTED [facility] Comment on above: Result Comment: When [...] for this test is supported by the [place] of Health and Human Service's declaration that [...] By: #### C MP, CMADM, BNP #### [facility] [address] [place] [address] Dr. Norbert Polk ER URINE PROFILEon 3 Bilirubin Ql (U) Negative Normal NEGATIVE [facility] Comment on above: Performed By: #### B CABLE MAKER, CMP #### [facility] [address] [place] [address] Dr. Norbert [place] Clarity (U) CLEAR Normal CLEAR [facility] Comment on above: Performed By: #### B CABLE MAKER, CMP #### [facility] [address] [place] [address] Dr. Norbert Polk Color (U) LT. YELLOW Normal YELLOW [facility] Comment on above: Performed By: #### B CABLE MAKER, CMP #### [facility] [address] [place] [address] Dr. Norbert Polk ERUAHD A micrscopic examination will be performed if indicated. Normal The [facility] Comment on above: Performed By: #### B CABLE MAKER, CMP #### [facility] [address] [place] [address] Dr. Norbert Polk Glucose Ql (U) Negative Normal NEGATIVE The [facility] Comment on above: Performed By: #### B CABLE MAKER, CMP #### [facility] [address] [place] [address] Dr. Norbert Polk Hemoglobin Ql (U) Negative Normal NEGATIVE The [facility] Comment on above: Performed By: #### B CABLE MAKER, CMP #### [facility] [address] [place] [address] Dr. Norbert Polk Ketones Ql (U) Negative Normal NEGATIVE [facility] Comment on above: Performed By: #### B CABLE MAKER, CMP #### [facility] [address] [place] [address] Dr. Norbert Polk LEUKOCYTES SMALL Abnormal NEGATIVE [facility] Comment on above: Performed By: #### B CABLE MAKER, CMP #### [facility] [address] [place] [address] Dr. Norbert Polk Nitrite Ql (U) Negative Normal NEGATIVE [facility] Comment on above: Performed By: #### B CABLE MAKER, CMP #### [facility] [address] [place] [address] Dr. Norbert Polk pH (U) 7.0 [pH] Normal 5-9 The [facility] Comment on above: Performed By: #### B CABLE MAKER, CMP #### [facility] [address] [place] [address] Dr. Norbert Polk SPEC GRAVITY <=1.005 Abnormal 1.005-<=1.025 [facility] Comment on above: Performed By: #### B CABLE MAKER, CMP #### [facility] [address] [place] [address] Dr. Norbert Polk UA PROTEIN Negative Normal NEGATIVE/ TRACE The [facility] Comment on above: Performed By: #### B CABLE MAKER, CMP #### [facility] [address] [place] [address] Dr. Norbert Polk UR MICRO IND INDICATED Normal [facility] Comment on above: Performed By: #### B CABLE MAKER, CMP #### [facility] [address] [place] [address] Dr. Norbert Polk Urobilinogen Qn (U) 0.2 {Karan'U}/dL Normal 0.2 - 1. 0 [facility] Comment on above: Performed By: #### B CABLE MAKER, CMP #### [facility] [address] [place] [address] Dr. Norbert Polk LACTATE/LACTIC ACIDon 2022 Lactate [Moles/Vol] 2.5 mmol/L Critically high 0.4-1.9 [facility] Comment on above: Performed By: #### P OCGLUC #### [facility] [address] [place] [address] Dr. Norbert Polk Lactate [Moles/Vol] 2.5 mmol/L Critically high 0.4-1.9 [facility] Comment on above: Performed By: #### C MP, CMADM, BNP #### [facility] [address] [place] [address] Dr. Norbert Polk POINT OF CARE GLUCOSEon Glucose [Mass/Vol] 113 mg/dL Critically high 74-106 [facility] Comment on above: Performed By: #### C MP, CMADM, BNP #### [facility] [address] [address] [address] Norbert Polk PROF 14(COMP METB)on 023 Albumin [Mass/Vol] 3.3 g/dL Critically low 3.4-5.0 [facility] Comment on above: Performed By: #### C MP, CMADM, BNP #### [facility] [address] [place] [address] Dr. Norbert Polk Albumin/Globulin [Mass ratio] 0.9 {ratio} Normal [facility] Comment on above: Performed By: #### C MP, CMADM, BNP #### [facility] [address] [place] [address] Dr. Norbert Polk ALP [Catalytic activity/Vol] 54 U/L Normal 46-116 [facility] Comment on above: Performed By: #### C MP, CMADM, BNP #### [facility] [address] [place] [address] Dr. Norbert Polk ALT [Catalytic activity/Vol] 16 U/L Normal 16-63 [facility] Comment on above: Performed By: #### C MP, CMADM, BNP #### [facility] [address] [address] [address] Norbert Polk Anion gap [Moles/Vol] 13.7 mmol/L Normal [facility] Comment on above: Performed By: #### C MP, CMADM, BNP #### [facility] [address] [place] [address] Dr. Norbert Polk AST [Catalytic activity/Vol] 16 U/L Normal 15-37 [facility] Comment on above: Performed By: #### C MP, CMADM, BNP #### [facility] [address] [place] [address] Dr. Norbert Polk Bilirubin [Mass/Vol] 0.2 mg/dL Normal 0.2-1.0 [facility] Comment on above: Performed By: #### C MP, CMADM, BNP #### [facility] [address] [address] [address] Norbert Polk Calcium [Mass/Vol] 9.8 mg/dL Normal 8.5-10.1 [facility] Comment on above: Performed By: #### C MP, CMADM, BNP #### [facility] [address] [address] [address] Norbert Polk Chloride [Moles/Vol] 105 mmol/L Normal 98-107 [facility] Comment on above: Performed By: #### C MP, CMADM, BNP #### [facility] [address] [place] [address] Dr. Norbert Polk CO2 [Moles/Vol] 27.0 mmol/L Normal 21.0-32.0 The [facility] Comment on above: Performed By: #### C MP, CMADM, BNP #### [facility] [address] [address] [address] Norbert Polk Creatinine [Mass/Vol] 2.08 mg/dL Critically high 0.70-1.30 [facility] Comment on above: Performed By: #### C MP, CMADM, BNP #### [facility] [address] [place] [address] Dr. Norbert Polk EGFR-AF NICARAGUAN 37 mL/min/1.73m2 Critically low >=60 The [facility] Comment on above: Performed By: #### C MP, CMADM, BNP #### [facility] [address] [place] [address] Dr. Norbert Polk EGFR-NON AF NICARAGUAN 31 mL/min/1.73m2 Critically low >=60 [facility] Comment on above: Performed By: #### C MP, CMADM, BNP #### [facility] [address] [place] [address] Dr. Norbert Polk Globulin (S) [Mass/Vol] 3.7 g/dL Normal [facility] Comment on above: Performed By: #### C MP, CMADM, BNP #### [facility] [address] [address] [address] Norbert Polk Glucose [Mass/Vol] 136 mg/dL Critically high 74-106 [facility] Comment on above: Performed By: #### C MP, CMADM, BNP #### [facility] [address] [address] [address] Norbert Polk Potassium [Moles/Vol] 4.7 mmol/L Normal 3.5-5.1 [facility] Comment on above: Performed By: #### C MP, CMADM, BNP #### [facility] [address] [address] [address] Norbert Polk Protein [Mass/Vol] 7.0 g/dL Normal 6.4-8.2 [facility] Comment on above: Performed By: #### C MP, CMADM, BNP #### [facility] [address] [address] [address] Norbert Polk Sodium [Moles/Vol] 141 mmol/L Normal 136-145 [facility] Comment on above: Performed By: #### C MP, CMADM, BNP #### [facility] [address] [address] [address] Norbert Polk Urea nitrogen [Mass/Vol] 62.0 mg/dL Critically high 7.0-18.0 [facility] Comment on above: Performed By: #### C MP, CMADM, BNP #### [facility] [address] [place] [address] Dr. Norbert Polk Urea nitrogen/Creatinine [Mass ratio] 29.8 mg/mg Normal [facility] Comment on above: Performed By: #### C MP, CMADM, BNP #### [facility] [address] [place] [address] Dr. Norbert Polk TROPONIN, HIGH SENSITIVITYon 11-29-2022 HSTROP 10.9 pg/mL Normal 4.0-76.1 [facility] Comment on above: Result Comment: CUT- OFF POINTS HAVE BEEN ESTABLISHED BASED ON THE FOURTH UNIVERSAL DEFINITIONS OF MYOCARDIAL INFARCTION. THE UPPER REFERENCE LIMIT (URL) OF TROPONIN, DEFINED THE 99TH PERCENTILE OF cTnI DISTRIBUTION IN A REFERENCE POPULATION, HAS BEEN CONFIRMED THE DECISION THRESHOLD FOR NE DIAGNOSIS. Performed By: #### C MP, CMADM, BNP #### [facility] [address] [place] [address] Dr. Norbert Polk URINE MICROSCOPIC ONLYon BACTERIA NONE SEEN Normal NONE SEEN [facility] Comment on above: Performed By: #### B CABLE MAKER, CMP #### [facility] [address] [place] [address] Dr. Norbert Polk Bacteria identified Cx Nom (U) NOT INDICATED Normal The [facility] Comment on above: Performed By: #### B CABLE MAKER, CMP #### [facility] [address] [place] [address] Dr. Norbert Polk CAST NONE SEEN Normal NONE SEEN [facility] Comment on above: Performed By: #### B CABLE MAKER, CMP #### [facility] [address] [place] [address] Dr. Norbert Polk Crystals LM Nom (Urine sed) NONE SEEN Normal NONE SEEN [facility] Comment on above: Performed By: #### B CABLE MAKER, CMP #### [facility] [address] [place] [address] Dr. Norbert Polk Epithelial cells LM Ql (Urine sed) NONE SEEN Normal NONE SEEN /RARE The [facility] Comment on above: Performed By: #### B CABLE MAKER, CMP #### [facility] [address] [place] [address] Dr. Norbert Polk MUCOUS NONE SEEN Normal NONE SEEN The [facility] Comment on above: Performed By: #### B CABLE MAKER, CMP #### [facility] [address] [place] [address] Dr. Norbert Polk RBC 0-2 Normal 0-2 The [facility] Comment on above: Performed By: #### B CABLE MAKER, CMP #### [facility] [address] [place] [address] Dr. Norbert Polk WBC 0-2 Abnormal NONE SEEN [facility] Comment on above: Performed By: #### B CABLE MAKER, CMP #### [facility] [address] [place] [address] Dr. Norbert oPlk XR CHEST 1 Von 11-29-2022 XR CHEST [...] INDIGO MONTANO Date: 2022-11-29 17:08 Normal The [facility] BNPon 10-31-2022 Natriuretic peptide B (Bld) [Mass/Vol] 729.0 pg/mL Normal <=1,800.0 The [facility] Comment on above: Performed By: #### P OCGLUC #### [facility] [address] [place] [address] Dr. Norbert Polk CBC AUTO DIFFon 10-31-2022 BASO # 0.1 103/ul Normal 0.0-0.1 The [facility] Comment on above: Performed By: #### P OCGLUC #### [facility] [address] [place] [address] Dr. Norbert Polk Basophils/100 WBC (Bld) 0.8 % Normal 0.2-2.0 The [facility] Comment on above: Performed By: #### P OCGLUC #### [facility] [address] [place] [address] Dr. Norbert Polk EO # 0.7 103/ul Normal 0.0-0.7 The [facility] Comment on above: Performed By: #### P OCGLUC #### [facility] [address] [place] [address] Dr. Norbert Polk Eosinophils/100 WBC (Bld) 8.1 % Critically high 0.9-7.0 [facility] Comment on above: Performed By: #### P OCGLUC #### [facility] [address] [place] [address] Dr. Norbert Polk Erythrocyte distribution width (RBC) [Ratio] 14.7 % Normal 11.0-15.0 [facility] Comment on above: Performed By: #### P OCGLUC #### [facility] [address] [place] [address] Dr. Norbert Polk Hematocrit (Bld) [Volume fraction] 34.8 % Critically low 42.0-54.0 [facility] Comment on above: Performed By: #### P OCGLUC #### [facility] [address] [place] [address] Dr. Norbert Polk Hemoglobin (Bld) [Mass/Vol] 11.1 g/dL Critically low 14.0-18.0 [facility] Comment on above: Performed By: #### P OCGLUC #### [facility] [address] [place] [address] Dr. Norbert Polk IG # 0.03 10e3/ul Normal 0.00-0.03 [facility] Comment on above: Performed By: #### P OCGLUC #### [facility] [address] [place] [address] Dr. Norbert Polk IG % 0.3 % Normal 0.0-0.5 [facility] Comment on above: Performed By: #### P OCGLUC #### [facility] [address] [place] [address] Dr. Norbert Polk LYMPH # 3.4 103/ul Normal 1.2-3.8 The [facility] Comment on above: Performed By: #### P OCGLUC #### [facility] [address] [place] [address] Dr. Norbert Polk Lymphocytes/100 WBC (Bld) 37.4 % Normal 20.5-60.0 The [facility] Comment on above: Performed By: #### P OCGLUC #### [facility] [address] [place] [address] Dr. Norbert Polk MANUAL DIFF REQ NO Normal The [facility] Comment on above: Performed By: #### P OCGLUC #### [facility] [address] [place] [address] Dr. Norbert Polk MCH (RBC) [Entitic mass] 30.1 pg Normal 25.9-34.0 The [facility] Comment on above: Performed By: #### P OCGLUC #### [facility] [address] [place] [address] Dr. Norbert Polk MCHC (RBC) [Mass/Vol] 31.9 g/dL Normal 29.9-35.2 The [facility] Comment on above: Performed By: #### P OCGLUC #### [facility] [address] [place] [address] Dr. Norbert Polk MCV (RBC) [Entitic vol] 94.3 fL Critically high 80.0-94.0 The [facility] Comment on above: Performed By: #### P OCGLUC #### [facility] [address] [place] [address] Dr. Norbert Polk MONO # 0.6 103/ul Normal 0.3-0.8 The [facility] Comment on above: Performed By: #### P OCGLUC #### [facility] [address] [place] [address] Dr. Norbert Polk Monocytes/100 WBC (Bld) 6.9 % Normal 1.7-12.0 The [facility] Comment on above: Performed By: #### P OCGLUC #### [facility] [address] [place] [address] Dr. Norbert Polk NEUT # 4.3 103/ul Normal 1.4-6.5 The [facility] Comment on above: Performed By: #### P OCGLUC #### [facility] [address] [place] [address] Dr. Norbert Polk Neutrophils/100 WBC (Bld) 46.5 % Normal 43.0-75.0 The [facility] Comment on above: Performed By: #### P OCGLUC #### [facility] [address] [place] [address] Dr. Norbert Polk Platelet mean volume (Bld) [Entitic vol] 9.5 fL Normal 9.5-13.5 The [facility] Comment on above: Performed By: #### P OCGLUC #### [facility] [address] [address] [address] Norbert Polk PLT 228 103/ul Normal 150-450 [facility] Comment on above: Performed By: #### P OCGLUC #### [facility] [address] [address] [address] Norbert Polk RBC 3.69 106/ul Critically low 4.70-6.10 [facility] Comment on above: Performed By: #### P OCGLUC #### [facility] [address] [address] [address] Norbert Polk WBC 9.2 103/ul Normal 4.0-11.0 [facility] Comment on above: Performed By: #### P OCGLUC #### [facility] [address] [address] [address] Norbert Polk MAGNESIUMon 10-31-2022 Magnesium [Mass/Vol] 1.6 mg/dL Critically low 1.8-2.4 [facility] Comment on above: Performed By: #### C MP, CMADM, BNP #### [facility] [address] [address] [address] Norbert Polk Office Visiton 10-31-2022 Follow-up visit [id number] Jose Ferreira 1940 M Date Provider Department Center 10/31/2022 NIA PORTILLO [facility] Family History Problem Relation Age of Onset Cancer Father Alcohol abuse Father Family Status - Relation Status Age at Father Level of Service:02670 [place] OFFICE/OUTPATIENT ESTABLISHED MOD MDM 30-39 MIN Reason for Visit and Comments: Atrial Fibrillation [80] Congestive Heart Failure [127] Hypertension [701454] Normal [facility] PROF CHEM 8 (BAS METB)on Anion gap [Moles/Vol] 13.5 mmol/L Normal [facility] Comment on above: Performed By: #### C MP, CMADM, BNP #### [facility] [address] [address] [address] Norbert Polk Calcium [Mass/Vol] 10.5 mg/dL Critically high 8.5-10.1 [facility] Comment on above: Performed By: #### C MP, CMADM, BNP #### [facility] [address] [address] [address] Norbert Polk Chloride [Moles/Vol] 105 mmol/L Normal 98-107 [facility] Comment on above: Performed By: #### C MP, CMADM, BNP #### [facility] [address] [address] [address] Norbert Plok CO2 [Moles/Vol] 26.9 mmol/L Normal 21.0-32.0 [facility] Comment on above: Performed By: #### C MP, CMADM, BNP #### [facility] [address] [address] [address] Norbert Polk Creatinine [Mass/Vol] 1.93 mg/dL Critically high 0.70-1.30 [facility] Comment on above: Performed By: #### C MP, CMADM, BNP #### [facility] [address] [address] [address] Norbert Polk EGFR-AF NICARAGUAN 40 mL/min/1.73m2 Critically low >=60 [facility] Comment on above: Performed By: #### C MP, CMADM, BNP #### [facility] [address] [place] [address] Dr. Norbert Polk EGFR-NON AF NICARAGUAN 33 mL/min/1.73m2 Critically low >=60 [facility] Comment on above: Performed By: #### C MP, CMADM, BNP #### [facility] [address] [address] [address] Norbert Polk Glucose [Mass/Vol] 111 mg/dL Critically high 74-106 [facility] Comment on above: Performed By: #### C MP, CMADM, BNP #### [facility] [address] [place] [address] Dr. Norbert Polk Potassium [Moles/Vol] 5.4 mmol/L Critically high 3.5-5.1 [facility] Comment on above: Performed By: #### C MP, CMADM, BNP #### [facility] [address] [address] [address] Norbert Polk Sodium [Moles/Vol] 140 mmol/L Normal 136-145 The [facility] Comment on above: Performed By: #### C MP, CMADM, BNP #### [facility] [address] [address] [address] Norbert Polk Urea nitrogen [Mass/Vol] 65.0 mg/dL Critically high 7.0-18.0 [facility] Comment on above: Performed By: #### C MP, CMADM, BNP #### [facility] [address] [address] [address] Norbert Polk Urea nitrogen/Creatinine [Mass ratio] 33.7 mg/mg Normal [facility] Comment on above: Performed By: #### C MP, CMADM, BNP #### [facility] [address] [address] [address] Norbert Polk HEMOGLOBINon 05-09-2022 Hemoglobin (Bld) [Mass/Vol] 10.7 g/dL Critically low 14.0-18.0 [facility] Comment on above: Performed By: #### C MP, CMADM, BNP #### [facility] [address] [address] [address] Norbert Polk BASIC METABOLIC PANELon 11-22 Calcium [Mass/Vol] 8.7 mg/dL Normal 8.6-10.3 [facility] Comment on above: Order Comment: No: D o not add to previous draw Nurse draw Ronak Moseley Performed By: #### 0 [id number], [id number] #### [facility] [address] [place] [address], [place] Chloride [Moles/Vol] 105 mmol/L Normal 98-107 The [facility] Comment on above: Order Comment: No: D o not add to previous draw Nurse draw Ronak Moseley Performed By: #### 0 007, [id number] #### [facility] [address] [place] [address], [place] CO2 [Moles/Vol] 24 mmol/L Normal 21-31 The [facility] Comment on above: Order Comment: No: D o not add to previous draw Nurse draw Rn Lorelei Performed By: #### 0 0071, [id number] #### [facility] [address] [place] [address], [place] Creatinine [Mass/Vol] 1.22 mg/dL Normal 0.70-1.30 [facility] Comment on above: Order Comment: No: D o not add to previous draw Nurse draw Rn Lorelei Performed By: #### 0 0071, [id number] #### [facility] [address] [place] [address], [place] eGFR- non- 57 ml/min/1.73sq m Abnormal >60 The [facility] Comment on above: Order Comment: No: D o not add to previous draw Nurse draw Rn Lorelei Result Comment: Calc ulation may not be valid for patients over 70 years Performed By: #### 0 0071, [id number] #### [facility] [address] [place] [address], [facility] GFR/1.73 sq M.predicted among blacks MDRD (S/P/Bld) [Vol rate/Area] mL/min/{1.73_m2} Normal >60 The [facility] Comment on above: Order Comment: No: D o not add to previous draw Nurse draw Rn Lorelei Result Comment: Calc ulation may not be valid for patients over 70 years Performed By: #### 0 0071, [id number] #### [facility] [address] [place] [address], [place] Glucose [Mass/Vol] 156 mg/dL High 70-100 [facility] Comment on above: Order Comment: No: D o not add to previous draw Nurse draw Rn Lorelei Performed By: #### 0 0071, [id number] #### [facility] [address] [place] [address], [place] Potassium [Moles/Vol] 3.9 mmol/L Normal 3.5-5.1 The [facility] Comment on above: Order Comment: No: D o not add to previous draw Nurse draw Rn Lorelei Performed By: #### 0 0071, [id number] #### [facility] [address] [place] [id number], [facility] Sodium [Moles/Vol] 136 mmol/L Normal 136-145 The [facility] Comment on above: Order Comment: No: D o not add to previous draw Nurse draw Rn Lorelei Performed By: #### 0 0071, [id number] #### [facility] [address] [place] [id number], [facility] Urea nitrogen [Mass/Vol] 36 mg/dL High 7-25 The [facility] Comment on above: Order Comment: No: D o not add to previous draw Nurse draw Rn Lorelei Performed By: #### 0 0071, [id number] #### [facility] [address] [place] [id number], [facility] CBC COMPLETE BLOOD COUNTon 0 12-05-2021 Erythrocyte distribution width (RBC) [Ratio] 15.7 % High 11.5-15.0 The [facility] Comment on above: Order Comment: No: D o not add to previous draw Performed By: #### 0 0121, [id number], [id number] #### [facility] [address] [place] [address], [facility] Hematocrit (Bld) [Volume fraction] 28.4 % Low 39.0-50.0 [facility] Comment on above: Order Comment: No: D o not add to previous draw Performed By: #### 0 0121, 80248, 52765 #### [facility] [address] [place] [address], [facility] Hemoglobin (Bld) [Mass/Vol] 9.0 g/dL Low 13.0-17.0 [facility] Comment on above: Order Comment: No: D o not add to previous draw Performed By: #### 0 0121, 31742, 89074 #### [facility] [address] [place] [address], [facility] MCH (RBC) [Entitic mass] 28.8 pg Normal 27.0-33.0 [facility] Comment on above: Order Comment: No: D o not add to previous draw Performed By: #### 0 0121, 55518, 82469 #### [facility] [address] [place] [address], [facility] MCHC (RBC) [Mass/Vol] 31.7 g/dL Low 32.0-35.0 [facility] Comment on above: Order Comment: No: D o not add to previous draw Performed By: #### 0 0121, 28613, 63590 #### [facility] [address] [facility] [address], [facility] MCV (RBC) [Entitic vol] 91.0 fL Normal 82.0-98.0 [facility] Comment on above: Order Comment: No: D o not add to previous draw Performed By: #### 0 0121, 24982, 97532 #### [facility] [address] [facility]. [address] Nucleated RBC/100 WBC (Bld) [Ratio] 0 % Normal 0-0 [facility] Comment on above: Order Comment: No: D o not add to previous draw Performed By: #### 0 0121, 87499, 44895 #### [facility] [address] [facility] [place] [address], [facility] PLAT CNT 319 10*3/uL Normal 150-400 [facility] Comment on above: Order Comment: No: D o not add to previous draw Performed By: #### 0 0121, 94819, 09533 #### [facility] [address] [place] [address], [facility] RBC (Bld) [#/Vol] 3.12 10*6/uL Low 4.20-5.70 [facility] Comment on above: Order Comment: No: D o not add to previous draw Performed By: #### 0 0121, 59815, 23172 #### [facility] [address] [place] [address], [facility] WBC (Bld) [#/Vol] 9.06 10*3/uL Normal 4.00-10.60 [facility] Comment on above: Order Comment: No: D o not add to previous draw Performed By: #### 0 0121, 21485, 75636 #### [facility] [address] [place] [address], [facility] LIVER BATTERYon 12-05-2021 Albumin [Mass/Vol] 2.7 g/dL Low 3.5-5.7 [facility] Comment on above: Performed By: #### 0 0071, 92210 #### [facility] [address] [place] [address], [facility] ALKALINE PHOSPH 107 IU/L High 34-104 [facility] Comment on above: Performed By: #### 0 0071, 09073 #### [facility] [address] [place] [address], [facility] ALT [Catalytic activity/Vol] 107 U/L High 7-52 [facility] Comment on above: Performed By: #### 0 0071, 20951 #### [facility] [address] [place] [address], [facility] AST [Catalytic activity/Vol] 97 U/L High 13-39 [facility] Comment on above: Performed By: #### 0 0071, 81416 #### [facility] [address] [place] [address], [facility] Bilirubin [Mass/Vol] 0.2 mg/dL Low 0.3-1.0 [facility] Comment on above: Performed By: #### 0 0071, 96237 #### [facility] [address] [place] [address], [place] Bilirubin.direct [Mass/Vol] 0.0 mg/dL Normal 0.0-0.2 [facility] Comment on above: Performed By: #### 0 0071, 65469 #### [facility] [address] [place] [address], [place] Protein [Mass/Vol] 6.2 g/dL Normal 6.0-8.3 [facility] Comment on above: Performed By: #### 0 0071, 72130 #### [facility] [address] [place] [address], [place] POC GLUCOSE LABon 12-05-2021 Glucose [Mass/Vol] 433 mg/dL High 70-100 [facility] Comment on above: Performed By: #### 3 5200, 64454 #### [facility] [address] [place] [address], [place] Glucose [Mass/Vol] 191 mg/dL High 70-100 [facility] Comment on above: Performed By: #### 3 5200, 42397 #### [facility] [address] [place] [address], [place] BASIC METABOLIC PANELon 11-22 Calcium [Mass/Vol] 8.6 mg/dL Normal 8.6-10.3 [facility] Comment on above: Order Comment: No: D o not add to previous draw Performed By: #### 0 0121, 43118, 97598 #### [facility] [address] [place] [address], [place] Chloride [Moles/Vol] 104 mmol/L Normal 98-107 [facility] Comment on above: Order Comment: No: D o not add to previous draw Performed By: #### 0 0121, 47984, 11655 #### [facility] [address] [place] [address], [place] CO2 [Moles/Vol] 22 mmol/L Normal 21-31 [facility] Comment on above: Order Comment: No: D o not add to previous draw Performed By: #### 0 0121, 94894, 11695 #### [facility] [address] [place] [address], [facility] Creatinine [Mass/Vol] 1.48 mg/dL High 0.70-1.30 [facility] Comment on above: Order Comment: No: D o not add to previous draw Performed By: #### 0 0121, 34687, 02254 #### [facility] [address] [place] [address], [facility] eGFR- 55 ml/min/1.73sq m Abnormal >60 [facility] Comment on above: Order Comment: No: D o not add to previous draw Result Comment: Calc ulation may not be valid for patients over 70 years Performed By: #### 0 0121, 19431, 32209 #### [facility] [address] [facility] [place] [address], [facility] eGFR- non- 45 ml/min/1.73sq m Abnormal >60 [facility] Comment on above: Order Comment: No: D o not add to previous draw Result Comment: Calc ulation may not be valid for patients over 70 years Performed By: #### 0 0121, 67752, 95968 #### [facility] [address] [place] [address], [facility] Glucose [Mass/Vol] 112 mg/dL High 70-100 [facility] Comment on above: Order Comment: No: D o not add to previous draw Performed By: #### 0 0121, 52632, 83275 #### [facility] [address] [place] [address], [facility] Potassium [Moles/Vol] 3.8 mmol/L Normal 3.5-5.1 [facility] Comment on above: Order Comment: No: D o not add to previous draw Performed By: #### 0 0121, 49577, 19433 #### [facility] [address] [place] [address], [facility] Sodium [Moles/Vol] 135 mmol/L Low 136-145 [facility] Comment on above: Order Comment: No: D o not add to previous draw Performed By: #### 0 0121, 67654, 97860 #### [facility] [address] [place] [address], [facility] Urea nitrogen [Mass/Vol] 32 mg/dL High 7-25 [facility] Comment on above: Order Comment: No: D o not add to previous draw Performed By: #### 0 0121, 74470, 51420 #### [facility] [address] [place] [place] [address], [facility] CBC COMPLETE BLOOD COUNTon 0 - Erythrocyte distribution width (RBC) [Ratio] 15.9 % High 11.5-15.0 [facility] Comment on above: Order Comment: No: D o not add to previous draw Performed By: #### 0 0121, 30558, 89894 #### [facility] [address] [place] [place] [address], [facility] Hematocrit (Bld) [Volume fraction] 28.5 % Low 39.0-50.0 [facility] Comment on above: Order Comment: No: D o not add to previous draw Performed By: #### 0 0121, 07117, 46580 #### [facility] [address] [place] [place] [address], [facility] Hemoglobin (Bld) [Mass/Vol] 9.2 g/dL Low 13.0-17.0 [facility] Comment on above: Order Comment: No: D o not add to previous draw Performed By: #### 0 0121, 63314, 72908 #### [facility] [address] [place] [address], [facility] MCH (RBC) [Entitic mass] 28.5 pg Normal 27.0-33.0 [facility] Comment on above: Order Comment: No: D o not add to previous draw Performed By: #### 0 0121, 50262, 57741 #### [facility] [address] [place] [address], [facility] MCHC (RBC) [Mass/Vol] 32.3 g/dL Normal 32.0-35.0 [facility] Comment on above: Order Comment: No: D o not add to previous draw Performed By: #### 0 0121, 74288, 28200 #### [facility] [address] [place] [id number], [facility] MCV (RBC) [Entitic vol] 88.2 fL Normal 82.0-98.0 [facility] Comment on above: Order Comment: No: D o not add to previous draw Performed By: #### 0 0121, 61214, 73516 #### [facility] [address] [place] [id number], [facility] Nucleated RBC/100 WBC (Bld) [Ratio] 0 % Normal 0-0 [facility] Comment on above: Order Comment: No: D o not add to previous draw Performed By: #### 0 0121, 07349, 22208 #### [facility] [address] [place] [id number], [facility] PLAT CNT 308 10*3/uL Normal 150-400 [facility] Comment on above: Order Comment: No: D o not add to previous draw Performed By: #### 0 0121, 11464, 48560 #### [facility] [address] [place] [address], [facility] RBC (Bld) [#/Vol] 3.23 10*6/uL Low 4.20-5.70 [facility] Comment on above: Order Comment: No: D o not add to previous draw Performed By: #### 0 0121, 40431, 12190 #### [facility] [address] [place] [address], [facility] WBC (Bld) [#/Vol] 11.47 10*3/uL High 4.00-10.60 [facility] Comment on above: Order Comment: No: D o not add to previous draw Performed By: #### 0 0121, 48710, 60377 #### [facility] [address] [place] [address], [facility] POC GLUCOSE LABon 12-04-2021 Glucose [Mass/Vol] 198 mg/dL High 70-100 [facility] Comment on above: Performed By: #### 3 5200, 41007 #### [facility] [address] [facility] [place] [address], [facility] Glucose [Mass/Vol] 326 mg/dL High 70-100 [facility] Comment on above: Performed By: #### 3 5200, 25811 #### [facility] [address] [facility] [address], [facility] Glucose [Mass/Vol] 424 mg/dL High 70-100 [facility] Comment on above: Performed By: #### 3 5200, 84254 #### [facility] [address] [facility] [address], [facility] Glucose [Mass/Vol] 158 mg/dL High 70-100 [facility] Comment on above: Performed By: #### 3 5200, 10826 #### [facility] [address] [place] [address], [facility] *SARS-CoV-2 COVID-19on 12-03 SARS-CoV-2 (COVID-19) RNA KAYLIN+probe Ql (Unsp spec) Not detected Normal Not Detected [facility] Comment on above: Order Comment: No: D o not add to previous draw Performed By: #### 3 5200, 82195 #### [facility] [address] [place] [address], [facility] APTTon 12-03-2021 aPTT Coag (Bld) [Time] 35.5 s High 25.0-35.0 [facility] Comment on above: Order Comment: [...] FOR THIS PURPOSE. Performed By: #### 3 5200, 27729 #### [facility] [address] [place] [address], [facility] BASIC METABOLIC PANELon 11-22 Calcium [Mass/Vol] 8.6 mg/dL Normal 8.6-10.3 [facility] Comment on above: Order Comment: No: D o not add to previous draw Performed By: #### 0 0121, 64681, 74563 #### [facility] [address] [place] [address], [place] Chloride [Moles/Vol] 103 mmol/L Normal 98-107 [facility] Comment on above: Order Comment: No: D o not add to previous draw Performed By: #### 0 0121, 20075, 21077 #### [facility] [address] [place] [address], [place] CO2 [Moles/Vol] 22 mmol/L Normal 21-31 [facility] Comment on above: Order Comment: No: D o not add to previous draw Performed By: #### 0 0121, 27213, 91986 #### [facility] [address] [place] [address], [place] Creatinine [Mass/Vol] 1.52 mg/dL High 0.70-1.30 [facility] Comment on above: Order Comment: No: D o not add to previous draw Performed By: #### 0 0121, 16159, 68442 #### [facility] [address] [place] [address], [place] eGFR- 53 ml/min/1.73sq m Abnormal >60 [facility] Comment on above: Order Comment: No: D o not add to previous draw Result Comment: Calc ulation may not be valid for patients over 70 years Performed By: #### 0 0121, 16998, 47038 #### [facility] [address] [place] [address], [place] eGFR- non- 44 ml/min/1.73sq m Abnormal >60 [facility] Comment on above: Order Comment: No: D o not add to previous draw Result Comment: Calc ulation may not be valid for patients over 70 years Performed By: #### 0 0121, 02537, 18099 #### [facility] [address] [place] [address], [place] Glucose [Mass/Vol] 214 mg/dL High 70-100 [facility] Comment on above: Order Comment: No: D o not add to previous draw Performed By: #### 0 0121, 50517, 31280 #### [facility] [address] [place] [address], [place] Potassium [Moles/Vol] 4.3 mmol/L Normal 3.5-5.1 [facility] Comment on above: Order Comment: No: D o not add to previous draw Performed By: #### 0 0121, 81490, 42263 #### [facility] [address] [place] [address], [place] Sodium [Moles/Vol] 132 mmol/L Low 136-145 [facility] Comment on above: Order Comment: No: D o not add to previous draw Performed By: #### 0 0121, 61200, 72571 #### [facility] [address] [place] [address], [place] Urea nitrogen [Mass/Vol] 35 mg/dL High 7-25 [facility] Comment on above: Order Comment: No: D o not add to previous draw Performed By: #### 0 0121, 25729, 79100 #### [facility] [address] [place] [address], [facility] C REACTIVE PROTEINon 022 CRP [Mass/Vol] 156.0 mg/L High 0.0-7.0 The [facility] mikel [facility] Comment on above: Order Comment: No: D o not add to previous draw Performed By: #### 3 5200, 29101 #### [facility] [address] [place] [address], [facility] CBC COMPLETE BLOOD COUNTon 0 12-03-2021 Erythrocyte distribution width (RBC) [Ratio] 15.7 % High 11.5-15.0 [facility] Comment on above: Order Comment: No: D o not add to previous draw Performed By: #### 3 5200, 21480 #### [facility] [address] [place] [address], [facility] Hematocrit (Bld) [Volume fraction] 27.6 % Low 39.0-50.0 [facility] Comment on above: Order Comment: No: D o not add to previous draw Performed By: #### 3 5200, 83849 #### [facility] [address] [place] [address], [facility] Hemoglobin (Bld) [Mass/Vol] 8.8 g/dL Low 13.0-17.0 [facility] Comment on above: Order Comment: No: D o not add to previous draw Performed By: #### 3 5200, 20222 #### [facility] [address] [place] [address], [place] MCH (RBC) [Entitic mass] 29.2 pg Normal 27.0-33.0 [facility] Comment on above: Order Comment: No: D o not add to previous draw Performed By: #### 3 5200, 23349 #### [facility] [address] [place] [address], [facility] MCHC (RBC) [Mass/Vol] 31.9 g/dL Low 32.0-35.0 [facility] Comment on above: Order Comment: No: D o not add to previous draw Performed By: #### 3 5199, 45767 #### [facility] [address] [place] [id number], [facility] MCV (RBC) [Entitic vol] 91.7 fL Normal 82.0-98.0 [facility] Comment on above: Order Comment: No: D o not add to previous draw Performed By: #### 3 5199, 39667 #### [facility] [address] [place] [address], [facility] Nucleated RBC/100 WBC (Bld) [Ratio] 0 % Normal 0-0 [facility] Comment on above: Order Comment: No: D o not add to previous draw Performed By: #### 3 5199, 56114 #### [facility] [address] [place] [address], [place] PLAT CNT 269 10*3/uL Normal 150-400 [facility] Comment on above: Order Comment: No: D o not add to previous draw Performed By: #### 3 5199, 12945 #### [facility] [address] [place] [id number], [facility] RBC (Bld) [#/Vol] 3.01 10*6/uL Low 4.20-5.70 [facility] Comment on above: Order Comment: No: D o not add to previous draw Performed By: #### 3 5199, 28668 #### [facility] [address] [place] [address], [place] WBC (Bld) [#/Vol] 10.88 10*3/uL High 4.00-10.60 [facility] Comment on above: Order Comment: No: D o not add to previous draw Performed By: #### 3 5199, 01059 #### [facility] [address] [place] [address], [place] CPKon 12-03-2021 CK [Catalytic activity/Vol] 24 U/L Low 30-223 [facility] Comment on above: Performed By: #### 0 0121, 39020, 91028 #### [facility] [address] [place] [address], [place] MAGNESIUM BLOODon 12-03-2021 Magnesium [Mass/Vol] 2.4 mg/dL Normal 1.9-2.7 [facility] Comment on above: Order Comment: No: D o not add to previous draw Performed By: #### 0 0121, 45702, 98496 #### [facility] [address] [place] [address], [place] PHOSPHORUS BLOODon Phosphate [Mass/Vol] 2.3 mg/dL Low 2.5-5.0 [facility] Comment on above: Order Comment: No: D o not add to previous draw Performed By: #### 0 0121, 59863, 41030 #### [facility] [address] [place] [address], [place] POC GLUCOSE LABon 12-03-2021 Glucose [Mass/Vol] 275 mg/dL High 70-100 [facility] above: Performed By: #### 3 5200, 26518 #### [facility] [address] [place] [address], [place] Glucose [Mass/Vol] 325 mg/dL High 70-100 [facility] Comment on above: Performed By: #### 3 5200, 39536 #### [facility] [address] [place] [address], [place] Glucose [Mass/Vol] 312 mg/dL High 70-100 [facility] Comment on above: Performed By: #### 3 5200, 61294 #### [facility] [address] [place] [address], [facility] Glucose [Mass/Vol] 202 mg/dL High 70-100 [facility] Comment on above: Performed By: #### 3 1790, 57636 #### [facility] [address] [place] [address], [facility] TROPONIN-Ion 12-03-2021 Troponin I.cardiac [Mass/Vol] 0.03 ng/mL Normal 0.00-0.04 [facility] Comment on above: Order Comment: No: D o not add to previous draw Result Comment: REFE RENCE RANGES: 0.00 - 0.04 ng/ml NORMAL 0.05 - 0.50 ng/ml INDETERMINATE > 0.50 ng/ml CONSISTENT WITH AN M.I. Performed By: #### 3 5200 #### [facility] [address] Troponin I.cardiac [Mass/Vol] 0.07 ng/mL High 0.00-0.04 [facility] Comment on above: Order Comment: No: D o not add to previous draw Result Comment: REFE RENCE RANGES: 0.00 - 0.04 ng/ml NORMAL 0.05 - 0.50 ng/ml INDETERMINATE > 0.50 ng/ml CONSISTENT WITH AN M.I. Performed By: #### 3 5020, 76507 #### [facility] [address] [facility]. [address] TSH3 WITH REFLEX FT4on 12-03 TSH 3RD GENERATION 0.64 uIU/mL Normal 0.34-5.60 [facility] Comment on above: Order Comment: Yes: Add to Previous draw if able Performed By: #### 3 0240, 27397 #### [facility] [address] [facility]. [address] UFH HEPARIN ASSAYon 12-03-19 22 UNFRACTIONATED HEPARIN <0.10 Critically low 0.30-0.70 [facility] Comment on above: Result Comment: Resu lt checked and called. Accurately read back by JADE JO ON 12/03/2021 AT 12:35 Rivaroxaban and Apixaban will interfere with the anti Xa assay used to monitor UFH and LMWH. Performed By: #### 3 5200, 33343 #### [facility] [facility] [address] *BLOOD CULTUREon 12-02-2021 *BLOOD CULTURE Clinical Report: (D) Specimen: BLOOD CULTURE Collected: 12/02/2021 20:10 Status: Final Last Updated: 12/08/2021 07:52 (1) RH 2009 CULT RES (Final) No Growth Day 5 Normal [facility] Comment on above: Order Comment: No: D o not add to previous draw Performed By: #### 3 0730, 99918 #### [facility] [address] *BLOOD CULTURE Clinical Report: (D) Specimen: BLOOD CULTURE Collected: 12/02/2021 20:05 Status: Final Last Updated: 12/08/2021 07:52 (1) LH 2004 CULT RES (Final) No Growth Day 5 Normal [facility] Comment on above: Order Comment: Yes: Add to Previous draw if able Performed By: #### 3 4910, 94521 #### [facility] [address] BNP (B-TYPE NATRIURETIC PEPT KARRIE)on 12-02-2021 Natriuretic peptide B (Bld) [Mass/Vol] 115 pg/mL High 0-100 [facility] Comment on above: Order Comment: No: D o not add to previous draw Result Comment: Give n the appropriate clinical setting a BNP result of >100 pg/mL indicates congestive heart failure. Performed By: #### 0 0121, 66415, 78626 #### [facility] [address] [place] [address], [facility] CBC W/DIFFon 12-02-2021 ABS IMM GRANS 0.1 10*3/uL Normal 0.0-0.2 The [facility] Comment on above: Order Comment: No: D o not add to previous draw Performed By: #### 0 0121, 56435, 38299 #### [facility] [address] [place] [address], [place] ABS NEUTROPHILS 7.5 10*3/uL Normal 1.6-7.6 The [facility] Comment on above: Order Comment: No: D o not add to previous draw Performed By: #### 0 0121, 94724, 15699 #### [facility] [address] [place] [address], [place] Basophils (Bld) [#/Vol] 0.1 10*3/uL Normal 0.0-0.2 [facility] Comment on above: Order Comment: No: D o not add to previous draw Performed By: #### 0 0121, 14712, 90402 #### [facility] [address] [place] [address], [place] Basophils/100 WBC (Bld) 0.7 % Normal 0.0-1.0 [facility] Comment on above: Order Comment: No: D o not add to previous draw Performed By: #### 0 0121, 42041, 19727 #### [facility] [address] [place] [address], [place] Eosinophils (Bld) [#/Vol] 1.3 10*3/uL High 0.0-0.5 [facility] Comment on above: Order Comment: No: D o not add to previous draw Performed By: #### 0 0121, 73392, 62612 #### [facility] [address] [place] [address], [place] Eosinophils/100 WBC (Bld) 10.2 % High 0.0-6.0 [facility] Comment on above: Order Comment: No: D o not add to previous draw Performed By: #### 0 0121, 50619, 81362 #### [facility] [address] Erythrocyte distribution width (RBC) [Ratio] 15.9 % High 11.5-15.0 [facility] Comment on above: Order Comment: No: D o not add to previous draw Performed By: #### 0 0121, 18695, 80522 #### [facility] [address] [facility] [address], [facility] Hematocrit (Bld) [Volume fraction] 31.1 % Low 39.0-50.0 [facility] Comment on above: Order Comment: No: D o not add to previous draw Performed By: #### 0 0121, 71184, 31709 #### [facility] [address] Hemoglobin (Bld) [Mass/Vol] 9.7 g/dL Low 13.0-17.0 [facility] Comment on above: Order Comment: No: D o not add to previous draw Performed By: #### 0 0121, 53458, 31898 #### [facility] [address] [place] [address], [facility] IMMATURE GRANS 0.4 % Normal 0.0-1.0 [facility] Comment on above: Order Comment: No: D o not add to previous draw Performed By: #### 0 0121, 51664, 86128 #### [facility] 3000 [facility] [place] [address], [facility] Lymphocytes (Bld) [#/Vol] 2.5 10*3/uL Normal 1.2-4.0 [facility] Comment on above: Order Comment: No: D o not add to previous draw Performed By: #### 0 0121, 93340, 22158 #### [facility] [address] [place] [id number], [facility] Lymphocytes/100 WBC (Bld) 20.6 % Normal 20.0-45.0 [facility] Comment on above: Order Comment: No: D o not add to previous draw Performed By: #### 0 0121, 86652, 85600 #### [facility] [address] [place] [address], [facility] MCH (RBC) [Entitic mass] 29.0 pg Normal 27.0-33.0 [facility] Comment on above: Order Comment: No: D o not add to previous draw Performed By: #### 0 0121, 67796, 26690 #### [facility] [address] [place] [address], [facility] MCHC (RBC) [Mass/Vol] 31.2 g/dL Low 32.0-35.0 [facility] Comment on above: Order Comment: No: D o not add to previous draw Performed By: #### 0 0121, 49740, 19191 #### [facility] [address] [place] [address], [facility] MCV (RBC) [Entitic vol] 93.1 fL Normal 82.0-98.0 [facility] Comment on above: Order Comment: No: D o not add to previous draw Performed By: #### 0 0121, 96140, 01106 #### [facility] [address] [facility] [address], [facility] Monocytes (Bld) [#/Vol] 0.9 10*3/uL Normal 0.1-1.0 [facility] Comment on above: Order Comment: No: D o not add to previous draw Performed By: #### 0 0121, 87190, 02837 #### [facility] [address] [place] [address], [facility] MONOS 7.0 % Normal 5.0-12.0 [facility] Comment on above: Order Comment: No: D o not add to previous draw Performed By: #### 0 0121, 88204, 10012 #### [facility] [address] [place] [id number], [facility] Neutrophils/100 WBC (Bld) 61.1 % Normal 40.0-72.0 [facility] Comment on above: Order Comment: No: D o not add to previous draw Performed By: #### 0 0121, 71764, 33834 #### [facility] [address] [place] [address], [facility] Nucleated RBC/100 WBC (Bld) [Ratio] 0 % Normal 0-0 [facility] Comment on above: Order Comment: No: D o not add to previous draw Performed By: #### 0 0121, 56688, 83209 #### [facility] [address] [place] [address], [place] PLAT CNT 280 10*3/uL Normal 150-400 The [facility] Comment on above: Order Comment: No: D o not add to previous draw Performed By: #### 0 0121, 65321, 90796 #### [facility] [address] [place] [address], [facility] RBC (Bld) [#/Vol] 3.34 10*6/uL Low 4.20-5.70 [facility] Comment on above: Order Comment: No: D o not add to previous draw Performed By: #### 0 0121, 87749, 27165 #### [facility] [address] [place] [address], [place] WBC (Bld) [#/Vol] 12.30 10*3/uL High 4.00-10.60 [facility] Comment on above: Order Comment: No: D o not add to previous draw Performed By: #### 0 0121, 36015, 11835 #### [facility] [address] [place] [address], [place] COMP METABOLIC PANELon 12-02 Albumin [Mass/Vol] 2.9 g/dL Low 3.5-5.7 [facility] Comment on above: Order Comment: No: D o not add to previous draw Performed By: #### 0 0121, 51978, 16269 #### [facility] [address] [place] [address], [facility] ALKALINE PHOSPH 96 IU/L Normal 34-104 [facility] Comment on above: Order Comment: No: D o not add to previous draw Performed By: #### 0 0121, 26592, 78218 #### [facility] [address] [place] [address], [place] ALT [Catalytic activity/Vol] 112 U/L High 7-52 [facility] Comment on above: Order Comment: No: D o not add to previous draw Performed By: #### 0 0121, 56428, 68825 #### [facility] [address] [place] [address], [place] AST [Catalytic activity/Vol] 115 U/L High 13-39 [facility] Comment on above: Order Comment: No: D o not add to previous draw Performed By: #### 0 0121, 16737, 72079 #### [facility] [address] [place] [address], [place] Bilirubin [Mass/Vol] 0.2 mg/dL Low 0.3-1.0 [facility] Comment on above: Order Comment: No: D o not add to previous draw Performed By: #### 0 0121, 21642, 95435 #### [facility] [address] [place] [address], [place] Calcium [Mass/Vol] 8.6 mg/dL Normal 8.6-10.3 [facility] Comment on above: Order Comment: No: D o not add to previous draw Performed By: #### 0 0121, 72557, 89010 #### [facility] [address] [place] [address], [place] Chloride [Moles/Vol] 106 mmol/L Normal 98-107 [facility] Comment on above: Order Comment: No: D o not add to previous draw Performed By: #### 0 0121, 09516, 86685 #### [facility] [address] [place] [address], [facility] CO2 [Moles/Vol] 20 mmol/L Low 21-31 [facility] Comment on above: Order Comment: No: D o not add to previous draw Performed By: #### 0 0121, 93039, 79245 #### [facility] [address] [place] [address], [place] Creatinine [Mass/Vol] 1.80 mg/dL High 0.70-1.30 [facility] Comment on above: Order Comment: No: D o not add to previous draw Performed By: #### 0 0121, 43395, 12949 #### [facility] [address] [place] [address], [facility] eGFR- 44 ml/min/1.73sq m Abnormal >60 [facility] Comment on above: Order Comment: No: D o not add to previous draw Result Comment: Calc ulation may not be valid for patients over 70 years Performed By: #### 0 0121, 17417, 96322 #### [facility] [address] [place] [address], [facility] eGFR- non- 36 ml/min/1.73sq m Abnormal >60 [facility] Comment on above: Order Comment: No: D o not add to previous draw Result Comment: Calc ulation may not be valid for patients over 70 years Performed By: #### 0 0121, 71488, 58296 #### [facility] [address] [place] [address], [place] Glucose [Mass/Vol] 125 mg/dL High 70-100 [facility] Comment on above: Order Comment: No: D o not add to previous draw Performed By: #### 0 0121, 87145, 93272 #### [facility] [address] [place] [address], [place] Potassium [Moles/Vol] 4.2 mmol/L Normal 3.5-5.1 [facility] Comment on above: Order Comment: No: D o not add to previous draw Performed By: #### 0 0121, 50469, 19732 #### [facility] [address] [place] [address], [facility] Protein [Mass/Vol] 6.3 g/dL Normal 6.0-8.3 [facility] Comment on above: Order Comment: No: D o not add to previous draw Performed By: #### 0 0121, 24385, 58951 #### [facility] [address] [place] [address], [place] Sodium [Moles/Vol] 134 mmol/L Low 136-145 [facility] Comment on above: Order Comment: No: D o not add to previous draw Performed By: #### 0 0121, 64350, 15004 #### [facility] [address] [place] [address], [facility] Urea nitrogen [Mass/Vol] 41 mg/dL High 7-25 [facility] Comment on above: Order Comment: No: D o not add to previous draw Performed By: #### 0 0121, 13679, 78982 #### [facility] [address] [place] [address], [place] LACTATE WITH REFLEXon 2021 Lactate [Moles/Vol] 1.1 mmol/L Normal .5-2.2 [facility] Comment on above: Order Comment: No: D o not add to previous draw Performed By: #### 3 0550, 12940 #### [facility] [address] [place] [address], [place] MAGNESIUM BLOODon 12-02-2021 Magnesium [Mass/Vol] 1.2 mg/dL Critically low 1.9-2.7 [facility] Comment on above: Order Comment: No: D o not add to previous draw Performed By: #### 0 0121, 09564, 47162 #### [facility] [address] [facility] [place] [address], [facility] POC GLUCOSE LABon 12-02-2021 Glucose [Mass/Vol] 179 mg/dL High 70-100 [facility] Comment on above: Performed By: #### 3 5200, 77267 #### [facility] [address] [place] [address], [facility] PORTABLE CHEST 1 VIEWon 11-22 PORTABLE CHEST 1 VIEW [facility] Department of Radiology [address] [place] [id number] Patient Name: JOSE FERREIRA : 1940 Sex: M Age: Race: White Pt. Location: [id number] Patient Status: I Ordered Date: 12/02/2021 7:35:00 [...] upper extremity PICC line. Electronically signed: Michael Clarke. Transcribed by: [email or web address], User Resident: Electronically Signed by: MICHAEL CLARKE @ 12/02/2021 10:07 PM Normal [facility] Comment on above: Order Comment: No: D o not add to previous draw PROCALCITONINon 12-02-2021 PROCALCITONIN 1.09 ng/mL High 0.00-0.10 The [facility] Comment on [...] PCT<0.5ng/mL Performed By: #### 3 1488 #### [facility] [address] [place] [address], [facility] PROTHROMBIN TIMEon 2 INR Coag (PPP) [Relative time] 1.29 {INR} High 0.91-1.16 [facility] Comment on above: Order Comment: No: D o not add to previous draw Result Comment: ACCC P RECOMMENDED INR FOR WARFARIN THERAPY -------- ------- CONDITION INR PROPHYLAXIS OF VENOUS THROMBOSIS 2-3 (HIGH-RISK SURGERY) TREATMENT OF VENOUS THROMBOSIS 2-3 TREATMENT OF PULMONARY EMBOLISM 2-3 PREVENTION OF SYSTEMIC EMBOLISM: 2-3 ACUTE MYOCARDIAL INFARCTION TISSUE HEART VALVES VALVULAR HEART DISEASE ATRIAL FIBRILLATION RECURRENT SYSTEMIC EMBOLISM MECHANICAL HEART VALVE 2.5-3.5 FROM: ORAL ANTICOAGULANTS. MECHANISM OF ACTION, CLINICAL EFFECTIVENESS, AND OPTIMAL THERAPEUTIC RANGE. CHEST 1995;108:231S-246S. Performed By: #### 0 0121, 87039, 79928 #### [facility] [address] [facility] [address], [facility] PT Coag (PPP) [Time] 16.0 s High 12.3-14.8 [facility] Comment on above: Order Comment: No: D o not add to previous draw Result Comment: ALL RESULTS MUST BE INTERPRETED WITH RESPECT TO BLOOD DRAWING ARTIFACT OR DILUTION ERROR OF ANTICOAGULANT AT THE TIME OF SAMPLING. Performed By: #### 0 0121, 67675, 15327 #### [facility] [address] [place] [address], [facility] TROPONIN-Ion 12-02-2021 Troponin I.cardiac [Mass/Vol] 0.03 ng/mL Normal 0.00-0.04 [facility] Comment on above: Order Comment: No: D o not add to previous draw Result Comment: REFE RENCE RANGES: 0.00 - 0.04 ng/ml NORMAL 0.05 - 0.50 ng/ml INDETERMINATE > 0.50 ng/ml CONSISTENT WITH AN M.I. Performed By: #### 0 0121, 65409, 07280 #### [facility] [address] [place] [address], [facility] US Venous, Unilat, Lower Ext Righton 10-20-2021 [...] by Jacob Puckett on 10/20/2021 1339 Normal [facility] Interventional Radiology Technologist Cult,Aerobe/Anaerobeon 02-03 Cult,Aerobe/Anaerobe Specimen Descriptio n .WOUND [...] REPORTED Tigecycline NOT REPORTED Tobramycin <=1 SUSCEPTIBLE Piperacillin/Tazobact am 8 SUSCEPTIBLE SUSCEPTIBILITY Organism METHICILLIN RESISTANT STAPHYLOCOCCUS [...] Trimethoprim/Sulfa <=10 SUSCEPTIBLE Vancomycin <=0.5 SUSCEPTIBLE Normal [facility] Comment on above: Performed By: #### A ANC #### [address] [address] Video Intern: Zach Mckeon MD Cult,Aerobe/Anaerobeon 09-08 Cult,Aerobe/Anaerobe Specimen [...] Trimethoprim/Sulfa <=10 SUSCEPTIBLE Vancomycin 1 SUSCEPTIBLE Normal [facility] Comment on above: Performed By: #### A ANC #### [address] [address] Prealbuminon 08-16-2018 Prealbumin [Mass/Vol] 32.3 mg/dL Normal 20-40 [facility] Comment on above: Performed By: #### P ALB, TP #### [address] [address] Protein, Totalon 08-16-2018 Protein [Mass/Vol] 7.6 g/dL Normal 6.4-8.3 [facility] Comment on above: Performed By: #### P ALB, TP #### [facility] [address] [place] [address] Vital Signs Date Time Vital Sign Value Performing Clinician Moises domínguez 09-24-2023 11:07-0500 Blood Pressure Location Ozzy CONTEH [facility] 09-24-2023 11:07-0500 Diastolic blood pressure 66 mm[Hg] Ozzy CONTEH [facility] 09-24-2023 11:07-0500 Heart rate 60 /min Ozzydahiana CONTEH [facility] 09-24-2023 11:07-0500 Respiratory rate 16 /min Ozzy CONTEH [facility] 09-24-2023 11:07-0500 Systolic blood pressure 95 mm[Hg] Ozzy CONTEH [facility] 08-27-2023 12:44-0500 Blood Pressure Location Ozzy CONTEH [facility] 08-27-2023 12:44-0500 Diastolic blood pressure 77 mm[Hg] Ozzy CONTEH [facility] 08-27-2023 12:44-0500 Heart rate 97 /min Ozzy CONTEH [facility] 08-27-2023 12:44-0500 Systolic blood pressure 111 mm[Hg] Ozzy CONTEH [facility] Encounters Encounter Date Encounter Type Care Provider Facility Start: 10-19-2023 ambulatory Ozzy Castillo ty:[facility] Start: 09-28-2023 End: 09-28-2023 ambulatory [facility] Start: 09-26-2023 End: 09-26-2023 ambulatory GINNY HERNANDEZ Not Available Start: 09-24-2023 End: 09-25-2023 ambulatory Ozzy CONTEH Facility:[facility] Start: 09-24-2023 End: 09-24-2023 Patient encounter procedure Ozzy CONTEH [facility] Start: 09-12-2023 End: 09-13-2023 ambulatory VALENCIA SNYDERRY Facility:[facility] Start: 09-12-2023 End: 09-12-2023 Patient encounter procedure VALENCIA WALSH [facility] Start: 08-30-2023 End: 08-31-2023 ambulatory Ozzy CONTEH Facility:[id number] Start: 08-29-2023 End: 08-29-2023 ambulatory SHANTARSHA Thomas MARCY [facility] Start: 08-27-2023 End: 08-28-2023 ambulatory Ozzy CONTEH Facility:[facility] Start: 08-27-2023 End: 08-27-2023 Patient encounter procedure Ozzy CONTEH [facility] Start: 08-06-2023 End: 08-06-2023 ambulatory [facility] Start: 06-18-2023 End: 06-19-2023 ambulatory Ozzy CONTEH Facility:[facility] Start: 06-18-2023 End: 06-18-2023 Patient encounter procedure Ozzy CONTEH [facility] Start: 04-16-2023 End: 04-16-2023 ambulatory [facility] Start: 04-04-2023 End: 04-04-2023 ambulatory FELIX SOTO [facility] Start: 03-28-2023 End: 03-28-2023 ambulatory [facility] Start: 03-27-2023 End: 03-27-2023 ambulatory [facility] Start: 02-09-2023 End: 02-10-[address] FARZAD DODSON . Facility:[facility] Start: 01-10-2023 End: 01-11-2023 Evaluation and management of inpatient DR FARZAD DODSON . Facility:[facility] Start: 01-09-2023 End: 01-09-2023 ambulatory [facility] Start: 01-05-2023 End: 01-05-[address] VALENTÍN ZIMMERMAN Facility:[facility] Start: 01-01-2023 End: 01-01-2023 ambulatory [facility] Start: 12-18-2022 End: 12-19-2022 ambulatory Ozzy CONTEH Facility:[facility] Start: 12-18-2022 End: 12-18-2022 Lab Drop off Ozzy CONTEH [facility] Start: 12-18-2022 End: 12-19-2022 ambulatory Ozzy CONTEH Facility: [facility] Start: 12-05-2022 End: 12-05-[address] FARZAD DODSON . Facility: Start: 11-29-2022 End: 11-30-[address] FARZAD DODSON . Facility:[facility] Start: 11-01-2022 ambulatory [facility] Start: 10-31-2022 End: 11-01-[address] FARZAD DODSON . Facility:[facility] Start: 10-31-2022 End: 10-31-2022 ambulatory [facility] Start: 05-09-2022 End: 05-10-[address] FARZAD DODSON . Facility: Start: 04-05-2022 End: 04-05-2022 Patient encounter procedure Ozzy CONTEH [facility] Start: 03-17-[address] FARZAD DODSON . Facili ty:[facility] Start: 04-22-2019 End: 04-23-2019 Patient encounter procedure [facility] Start: 04-11-2019 End: 04-12-2019 Patient encounter procedure [facility] Start: 04-04-2019 End: 04-05-2019 Patient encounter procedure [facility] Start: 03-25-2019 End: 03-26-2019 Patient encounter procedure [facility] Start: 03-21-2019 End: 03-22-2019 Patient encounter [facility] Start: 03-14-2019 End: 03-15-2019 [facility] Start: 03-07-2019 End: 03-08-2019 Patient encounter procedure [facility] Start: 02-28-2019 End: 03-01-2019 Patient encounter procedure [facility] Start: 02-21-2019 End: 02-22-2019 Patient encounter procedure [facility] Start: 02-14-2019 End: 02-15-2019 Patient encounter procedure [facility] Start: 02-07-2019 End: 02-08-2019 Patient encounter procedure [facility] Start: 01-31-2019 End: 02-01-2019 Patient encounter procedure [facility] Start: 01-24-2019 End: 01-25-2019 Patient encounter procedure [facility] Start: 01-10-2019 End: 01-11-2019 Patient encounter procedure [facility] Start: 11-29-2018 End: 11-30-2018 Patient encounter procedure [facility] [facility] Start: 11-08-2018 End: 11-09-2018 Patient encounter procedure KHASE [facility] Start: 10-18-2018 End: 10-19-2018 Patient encounter procedure MUSA [facility] Start: 10-04-2018 End: 10-05-2018 Patient encounter procedure MUSA [facility] Start: 09-27-2018 End: 09-28-2018 Patient encounter procedure MUSA [facility] Start: 09-20-2018 End: 09-21-2018 Patient encounter procedure MUSA [facility] Start: 09-06-2018 End: 09-07-2018 Patient encounter procedure NASH [facility] Start: 08-30-2018 End: 08-31-2018 Patient encounter procedure RIMA [facility] Start: 08-23-2018 End: 08-24-2018 Patient encounter procedure NASH [facility] Start: 08-16-2018 End: 08-17-2018 Patient encounter procedure RIMA [facility] Start: 08-16-2018 End: 08-16-2018 [facility] Date Procedure Procedure Detail Performing Clinician [...] A DAYAMI TEJEDA Start: 09-20-2018 NURSING COMMUNICATION A DAYAMI TEJEDA Start: 09-06-2018 ANAEROBIC AND AEROBI C CULTURE RIMA TEJEDA Start: 08-30-2018 WOUND CARE RIMA [facility] Start: 08-16-2018 Prealbumin [Mass/Vol] A DAYAMI TEJEDA Start: 08-16-2018 Protein xcpt refract ometry serum plasma/whl bld RIMA TEJEDA Start: 08-16-2018 WOUND CARE RIMA Manning Start: 01-19-1999 TRUS/BX Ozzy RHODES Start: 11-15-1998 CYSTO 1 Ozzy RHODES Comment on above: STENT REMOVAL, BI LA TERAL Start: 11-15-1998 RADICAL RETROPUBIC PROSTATECTOMY W/ BPLND Ozzy CONTEH Start: 11-12-1998 right ESWL 2 Ozzy RHODES Comment on above: Bi lateral w/ double J stents Start: 10-01-1998 right ESWL Ozzy RHODES Start: 09-23-1996 TRUS/BX Ozzy RHODES Acquired trigger fin anel (disorder) Ozzy CONTEH Amputation of toe Ozzy RHODES Cardiac pacemaker, d evice (physical object) Ozzy CONTEH Cataract surgery Ozzy TALLEY left ESWL Ozzy CONTEH Procedure on wrist Ozzy Ruiz ATEJESUS ALBERTO Release of trigger finger Cuong doylececilia CONTEH repair of eardrum Ozzy RHODES Immunizations Immunization Date Immunization Notes Care Provider Vickie jamison 11-15-2020 SARS-CoV-2 (COVID-19 ) mRNA BNT-162b2 vax Ozzy CONTEH [facility] Comment on above: Result Comment: seco nd dose given 12/08/2020 Payers Date Payer Category Payer Medicare [id number] 1961 Medicare [id number] 1961 Self-pay [id number] 1961 Unknown [id number] 1938 Unknown [id number] 2.16.8 40.1.395523.3.579.2.176 -8 Unknown [id number] 2.16.8 40.1.187361.3.579.2.176 8 Unknown [id number] 2.16.8 40.1.516112.3.579.2.176 -8 Unknown [id number] 2.16.8 40.1.414086.3.579.2.176 1938 Unknown [id number] 2.16.8 40.1.038287.3.579.2.176 - Unknown [id number] 2.16.8 40.1.028235.3.579.2.176 1938 Unknown [id number] 2.16.8 40.1.495143.3.579.2.176 1938 Unknown [id number] 2.16.8 40.1.890413.3.579.2.176 1938 Unknown [id number] 2.16.8 40.1.616763.3.579.2.176 8 Unknown [id number] 2.16.8 40.1.589683.3.579.2.176 1938 Unknown [id number] 2.16.8 40.1.679319.3.579.2.176 8 Unknown [id number] 2.16.8 40.1.747859.3.579.2.176 1938 Unknown [id number] 2.16.8 40.1.352192.3.579.2.176 8 Unknown [id number] 2.16.8 40.1.213163.3.579.2.176 1938 Unknown [id number] 2.16.8 40.1.845274.3.579.2.176 1938 Unknown [id number] 2.16.8 40.1.089696.3.579.2.176 1938 Unknown [id number] 2.16.8 40.1.085585.3.579.2.176 8 Unknown [id number] 2.16.8 40.1.710346.3.579.2.176 1938 Unknown [id number] 2.16.8 40.1.749648.3.579.2.176 8 Unknown [id number] 2.16.8 40.1.978705.3.579.2.176 1938 Unknown [id number] 2.16.8 40.1.730182.3.579.2.176 1938 Unknown [id number] 2.16.8 40.1.247459.3.579.2.176 1938 Unknown [id number] 2.16.8 40.1.688148.3.579.2.176 1938 Unknown [id number] 2.16.8 40.1.753181.3.579.2.176 1938 Unknown [id number] 2.16.8 40.1.355323.3.579.2.176 1938 Unknown [id number] 2.16.84 0.1.442798.3.579.2.593 1938 Unknown [id number] 2.16.84 0.1.140535.3.579.2.593 1938 Unknown [id number] 2.16.84 0.1.956592.3.579.2.593 1938 Unknown [id number] 2.16.84 0.1.759212.3.579.2.593 1938 Unknown [id number] 2.16.84 0.1.542625.3.579.2.593 1938 Unknown [id number] 2.16.84 0.1.270133.3.579.2.593 1938 Unknown [id number] 2.16.84 0.1.664695.3.579.2.593 1938 Unknown [id number] 2.16.84 0.1.252060.3.579.2.593 1938 Unknown [id number] 2.16. 840.1.090871.3.579.2.175 1938 Unknown [id number] 2.16.840 .1.811312.3.579.2.1259 1938 Unknown [id number] 2.16.8 40.1.612502.3.579.2.727 1938 Unknown [id number] 2.16.8 40.1.609597.3.579.2.727 1938 Unknown [id number] 2.16.8 40.1.414753.3.579.2.727 1938 Unknown [id number] 2.16.8 40.1.446387.3.579.2.727 1938 Unknown [id number] 2.16.8 40.1.572091.3.579.2.727 1938 Unknown [id number] 2.16.8 40.1.782994.3.579.2.727 1938 Unknown [id number] 2.16.8 40.1.206372.3.579.2.727 1938 Unknown [id number] 2.16.8 40.1.387135.3.579.2.727 Social History Date Type Detail Facility Start: 08-01-2021 Tobacco smoking status Ex-smoker (fi nding) [facility] Sex Assigned At Male [facility] Start: 06-18-2023 End: 08-27-2023 Tobacco smoking status Never smoked tobacco (finding) [facility] Tobacco smoking status Never [facility] Functional Status Date Assessment Result Facility 09-24-2023 Functional Status N/A [facility] 08-27-2023 Functional Status N/A [facility] 06-18-2023 Functional Status N/A [facility] Clinical Notes 12-05-2021 to 09-28-2023 Note Date & Type Note Facility 09-28-2023 Note [place] Cardiology - [facility] Subjective Jose Ferreira is a 83 [...] history including paroxysmal atrial fibrillation and elevated [id number] score of 6 who is not on anticoagulation therapy due to history of GI bleeding, recurrent major falls and excessive bruising. [facility] Recently had issues with urinary obstruction and [...] in the e (more content not included)... [facility] 09-24-2023 Hospital Discharge instructions Patient [...] and water are not available, use hand flat grinder operator. Disconnect the bag from the catheter and immediately attach a new bag to the catheter. Empty the used bag completely. Clean the used bag according to the graduate engineer's instructions, or as told by your health care provider. Let the bag dry completely, and put it in a clean plastic bag before storing it. General instructions Always wash your hands before and after caring for your catheter and collection bag. Use soap and water. If soap and water are not available, use hand flat grinder operator. Always make sure there are no leaks [...] provider. Document Revised: 08/15/2022 Document Reviewed: 08/15/2022 [employer] Patient Education 2022 [email or web address] Follow Up Care 06/18/2023 13:16:11 With:YADY SALCIDO, Ozzy Velasquez, URL Address: [facility] [address] , [place] [address]- [phone] When: Unknown [facility] 08-31-2023 Hospital Discharge instructions Follow Up Care 08/31/2023 09:10:09 With:YADY SALCIDO, Ozzy Velasquez, KIANAL Address: [facility] [address] [place] [address]- [phone] When: Unknown Comments:f/u already scheduled 09/24/23 [facility] 08-27-2023 Hospital Discharge instructions Patient Education 08/27/2023 [...] and water are not available, use hand flat grinder operator. Disconnect the bag from the catheter and immediately attach a new bag to the catheter. Empty the used bag completely. Clean the used bag according to the graduate engineer's instructions, or as told by your health care provider. Let the bag dry completely, and put it in a clean plastic bag before storing it. General instructions Always wash your hands before and after caring for your catheter and collection bag. Use soap and water. If soap and water are not available, use hand flat grinder operator. Always make sure there are no leaks [...] provider. Document Revised: 08/15/2022 Document Reviewed: 08/15/2022 [email or web address] Patient Education 2022 [email or web address] Follow Up Care 08/15/2023 08:27:59 With:YADY SALCIDO, Ozzy Velasquez, URL Address: [facility] [address] [place] [address]- When: Unknown Comments:f/u appt already scheduled [facility] 08-22-2023 Note Pre Op Cardiovascula r evaluation RCRI- 3 points Class IV Risk 15.0 % 30-day risk of , NE, or cardiac arrest From a cardiology perspective pt is moderate risk for a low- moderate risk procedure cystoscopy and suprapubic catheter placement with Dr. Conteh. Pt may hold ASA and pletal for 5-7 days prior to procedure and resume all meds post op. Please monitor hemodynamics carefully and prevent any major fluid shifts. Thank You, Georgie Munoz [facility] 08-06-2023 Note Patient and family p resent [...] further d/w Dr Denson or Anisha Roach CABLE MAKER for decision making process. 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 [facility] 08-06-2023 Note [facility] C[facility] PRO[facility] [...] he is lucila (more content not included)... [facility] 08-06-2023 Note Patient here for [...] All other systems reviewed and are negative. [facility] 06-18-2023 Hospital Discharge instructions Patient [...] under a microscope. This is called the Trappe score and the total score can range from 6 10, indicating how likely it is that the cancer will spread (metastasize) to other parts of the body. The higher the score, the greater the likelihood that the cancer will spread. Lisy 6 or lower: This indicates that the cancer cells look similar to normal prostate cells (well differentiated). Trappe 7: This indicates that the cancer cells look somewhat similar to normal prostate cells (moderately differentiated). Trappe 8, 9, or 10: This indicates that [...] stress of having cancer. General instructions Take wksm-ler-ffpwnhl and prescription medicines only as told by your health care provider. If you have to go to the hospital, notify your cancer specialist (oncologist). Keep all follow-up visits. This is important. Where to find more information [place] [employer]: www.cancer.org [place] [employer] Oncology: www.cancer.net National Cancer [place]: www.cancer.gov Contact a health care provider if: [...] provider. Document Revised: 01/04/2022 Document Reviewed: 01/04/2022 [email or web address] Patient Education 2022 [employer]. Follow Up Care 12/18/2022 13:44:52 With:YADY SALCIDO, Ozzy Velasquez, URL Address: [facility] [address] [place] [address]- [phone] When:Within 3 Month(s) Comments:PSA (and possible Lupron inj) [facility] [place] 04-16-2023 Note Much improved with h olding of lasix, currently remains euvolemic without any s/s of fluid overload Activity tolerance has greatly improved [facility] 04-16-2023 Note Continue lovastatin [facility] 04-16-2023 Note Coronary artery dise ase is Stable without any concerning symptoms Continue GDMT- ASA, toprol, lovastatin continue risk factor modifications- heart healthy diet, regular exercise as tolerated and continue all medications. [facility] 04-16-2023 Note Patient here for 2 w chippewa-cree follow up hypotension. He was started on [...] All other systems reviewed and are negative. [facility] 04-16-2023 Note [facility] CARDIOLOGY PROGR [...] etiology. No abno (more content not included)... [facility] 04-04-2023 Note Patient here for 1 w chippewa-cree follow up hypotension and midodrine increase to 10mg bid. BP log from home looks good. Still denies chest pain and lightheadedness. Review of Systems HENT: Positive for hearing loss. Cardiovascular: Positive for dyspnea on exertion and leg swelling. Hematologic/Lymphatic: Bruises/bleeds easily. Musculoskeletal: Positive for back pain, muscle weakness and myalgias. All other systems reviewed and are negative. 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 His manager air started him on midodrine. He has been [...] nebulizer solution, I (more content not included)... [facility] 03-28-2023 Note Cardiovascular Medic [facility] SUBJECTIVE Chief Complaint Patient presents with Atrial Fibrillation Coronary Artery Disease Congestive Heart Failure Jose Ferreira is a 82 y.o. male here for follow-up and to discuss the Watchman device. He is accompanied by his daughter, Ester. HPI 03/10/2022 He's had multiple foot surgeries since last seen. He is currently NWB to E. Patient needed to lay down during visit [...] been having issues with low BP. His manager air started him on midodrine. 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 ([facility]CC) Type 2 diabetes mellitus with diabetic peripheral angiopathy and gangrene, with long-term current use of insulin ([facility]) Type 2 diabetes mellitus, uncontrolled, with neuropathy Stage 3b chronic kidney disease ([facility]) Past Medical History: Diagnosis Date Atrial fibrillation ([facility]/HCC[facility] CHF (congestive heart failure) ([facility]) Coronary artery disease Diabetes mellitus ([facility]) GI bleed Hyperlipidemia Hypertension Second degree [...] (Welchol) 625 mg (more content not included)... [facility] 03-28-2023 Note Patient here for [...] All other systems reviewed and are negative. [facility] 01-01-2023 Note [place] Cardiology - [facility] Subjective Jose Frereira is a 82 y.o. year old male [...] insulin lispro (HumaL (more content not included)... [facility] 10-31-2022 Note Patient here to [...] All other systems reviewed and are negative. 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 ([facility]CC) Chronic systolic heart failure ([facility]) Coronary atherosclerosis Diabetic ulcer of left heel associated with type 2 diabetes mellitus, with fat layer exposed ([facility]) Dry gangrene ([facility]HCC) Foot osteomyelitis ([facility]) Gastroesophageal reflux disease Gastrointestinal hemorrhage Glycosuria History of malignant neoplasm of prostate History of renal calculi Hyperlipidemia Hypertension Male urinary stress incontinence Onychomycosis Open wound Acute decompensated heart failure ([facility]) Peritonitis ([facility]) Psychiatric problem 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 ([facility]CC) Type 2 diabetes mellitus with diabetic peripheral angiopathy and gangrene, with long-term current use of insulin ([facility]) Type 2 diabetes mellitus, uncontrolled, with neuropathy Past Medical History: Diagnosis Date Atrial fibrillation ([facility]) CHF (congestive heart failure) ([facility]) Coronary artery disease Diabetes mellitus ([facility]) GI bleed Hypertension Second degree AV [...] the evening., Di (more content not included)... [facility] 12-05-2021 Note MR#: [id number] I [facility] Pt. Name: Jose Ferreira Admitted: [...] an 81-year-old male, who initially presented to [facility] with complaint of chest pain and shortness of breath. Initially, chest pain was intermittent and midsternal and sharp. It was noted during his stay at [facility] that he also having intermittent runs of ventricular tachycardia with potential atrial fibrillation as well. Pacemaker was interrogated at the [facility] facility. EKG from [facility] noted atrial fibrillation with RVR and the patient was started on amiodarone infusion with amiodarone bolus prior to the infusion. On arrival, the patient no longer on amiodarone infusion. Repeat E[facility] at the [facility] showed atrial fibrillation with RVR with right bundle branch block, which was noted on previous EKG. At that time, the patient was denying any shortness of breath, any chest pain, fever, chills. [facility] creatinine was 2.4. WBCs [...] P/Margarita Avilez MD Date Trans: 12/05/2021 02:41 P/salvador [id number] cc: Farzad Dodson M.D. [address], [facility] [id number] Elyse Denson M.D. Heart Failure/ Transplant Mailstop [phone] [facility] [id number] [facility] Evaluation + Plan note No data available for this section [facility] Evaluation + Plan note Future Appointments Appointment Date:06/18/2023 11:15:00 AM Scheduled Provider:[facility]H [facility] Office Visit [facility] Evaluation + Plan note Future Appointments Appointment Date:09/24/2023 10:45:00 AM Scheduled Provider:zOzy CONTEH [facility] App[facility] Type:URO Office Visit Diagnostic Tests PendingPSA Total 8/28/23 [facility] Evaluation + Plan note Future Appointments Appointment Date:09/24/2023 10:45:00 AM Scheduled Provider:Ozzy CONTEH MD Location:[facility] Appointment Type:URO Office Visit [facility] [place] [facility] Evaluation + Plan note Future Appointments Appointment Date:10/19/2023 10:30:00 AM Scheduled Provider: Location:[facility] Appointment Type:URO Nurse Visit [facility] Hospital Discharge instructions No data available for this section [facility] Progress note No data available for this section [facility] [employer] Summary Purpose Family History No Family History [...] section and content) DATE CREATED AUTHOR 04/23/2019 [facility] DATE CREATED AUTHOR AUTHOR'S ORGANIZ ATION 10/21/2021 [facility] dical Specialist DATE CREATED AUTHOR AUTHOR'S ORGANIZ ATION 02/28/2022 [facility] DATE CREATED AUTHOR AUTHOR'S ORGANIZ ATION 02/16/2023 [facility] DATE CREATED AUTHOR AUTHOR'S ORGANIZ ATION 08/31/2023 [facility] DATE CREATED AUTHOR AUTHOR'S ORGANIZ ATION 09/28/2023 [facility] dical Specialists [facility] DATE CREATED AUTHOR AUTHOR'S ORGANIZ ATION 09/30/2023 [facility] DATE CREATED AUTHOR AUTHOR'S ORGANIZ ATION 10/12/2023 Eduardo Pickett [facility] Care Team (unrecognized sect ion and content) Personnel Name: Farzad Dodson MD Address: [address] [place] [address] Personnel Name: Farzad Dodson MD Address: Address: [address] [place] [address] Personnel Name: Farzad Dodson MD Address: Address: [address] [place] [address] Personnel Name: Farzad Dodson MD Address: Address: [address] [place] [address] Personnel Name: Farzad Dodson MD Address: Address: [address] [place] [address] Personnel Name: Farzad Dodson MD Address: Address: [address] [place] [address] FOR RECORDS PERTAINING TO PATIENTS WHO ARE [...] BE BASED ON THE PRIMARY CLINICAL RECORDS. [employer] provides no warranty or guarantee of the accuracy or completeness of information in this document.
[2023-10-18 23:14] LABS: Bilirubin Urine NEGATIVE (NEGATIVE); Blood Urine LARGE (NEGATIVE); Clarity Urine CLEAR (CLEAR); Color Urine YELLOW (YELLOW); Glucose Urine UA NEGATIVE (NEGATIVE); Ketones Urine TRACE mg/dL (NEGATIVE); Leukocyte Esterase Urine MODERATE (NEGATIVE); Nitrite Urine NEGATIVE (NEGATIVE); Protein Urine 30 mg/dL (NEG/TRACE); Specific Gravity Urine >=1.030 (1.005-1.025); Urobilinogen Urine 0.2 EU/dL (0.2-1.0)
[2023-10-18 23:14] LABS: Basophils Percent Auto 0.3 % (0.2-2.0); Eosinophils Absolute Auto 0.1 10^3/uL (0.0-0.7); Hematocrit 32.2 % (42.0-54.0); Hemoglobin 9.7 g/dL (14.0-18.0); Immature Granulocytes Abs Auto 0.09 10^3/uL (0.00-0.03); Immature Granulocytes Pct Auto 0.6 % (0.0-0.5); Lymphocytes Absolute Auto 0.7 10^3/uL (1.2-3.8); Lymphocytes Percent Auto 5.2 % (20.5-60.0); Mean Corpuscular HGB Conc 30.1 g/dL (29.9-35.2); Mean Corpuscular Hemoglobin 30.9 pg (25.9-34.0); Mean Corpuscular Volume 102.5 fL (80.0-94.0); Mean Platelet Volume 10.5 fL (9.5-13.5); Monocytes Absolute Auto 0.5 10^3/uL (0.3-0.8); Monocytes Percent Auto 3.2 % (1.7-12.0); Neutrophils Absolute Auto 12.5 10^3/uL (1.4-6.5); Neutrophils Percent Auto 89.7 % (43.0-75.0); Platelet Count 150 10^3/uL (150-450); Red Blood Count 3.14 10^6/uL (4.70-6.10); Red Cell Distribution Width 14.3 % (11.0-15.0)
[2023-10-18 23:15] LABS: Glucometer 153 mg/dL (74-106)
[2023-10-18 23:22] LABS: BUN Creatinine Ratio 22.6; Calcium 9.1 mg/dL (8.5-10.1); Carbon Dioxide 25.9 mmol/L (21.0-32.0); Chloride 101 mmol/L (98-107); Estimated GFR (African America 33 (>=60); Estimated GFR (Non-African Ame 27 (>=60); Glucose 150 mg/dL (74-106); Potassium 3.9 mmol/L (3.5-5.1); Sodium 136 mmol/L (136-145)
[2023-10-18 23:23] LABS: Bacteria Urine MODERATE #/HPF (NONE SEEN); Cast Seen? NONE SEEN #/LPF (NONE SEEN); Crystals Seen? None Seen #/HPF (None Seen); Mucus Urine NONE SEEN (NONE SEEN); RBC Urine 0-2 #/HPF (0-2); Squamous Epithelial Cell Urine RARE #/LPF (NONE/RARE)
[2023-10-19] VITALS (18 sets, daily range): BP systolic 82–139; BP diastolic 47–71; PULSE 62–104; RESP 14–18; TEMP 36.3–36.4; O2SAT 87–97; BMI 23.9
[2023-10-19 00:11] LABS: Glucometer 120 mg/dL (74-106)
--- OUTSIDE RECORDS SUMMARY | 2023-10-19 00:53 | XMS_ITS | CCD ---
Author Name Unknown Address [address] [place] [address] Organization [facility] Care Team Providers Care Building Serviceman Name Role Phone ILEANA RIMA Referring Unavailable [...] Unavailable VIDAL, KHASE A Referring Unavailable HOY, FARZDA M Primary Care Unavailable VIDAL, KHASE A [...] Unavailable HOY ., DR PANDA Consulting Unavailable DAVY, DR KORI Murrell Consulting Unavailable NILA ., [...] DR PANDA Primary Care Unavailable MARK, NIA Chano Consulting Unavailable MARK, NIA C [...] Drug Allergy Mild (qualifier value) [facility] (7 sources) Amoxicillin / Clavulanate; Translations: [amoxicillin-cla vulanate] Drug Allergy Diarrhea (finding) [facility] (8 sources) levoFLOXacin; Translations: [levofloxacin] Drug Allergy 8 Mild (qualifier value) [facility] (8 sources) pioglitazone; Translations: [pioglitazone] Drug Allergy 8 Mild (qualifier value) [facility] (1 source) Amoxicillin / Clavulanate Drug Allergy [facility] (2 sources) levoFLOXacin Drug Allergy 4 [facility] (1 source) pioglitazone Drug Allergy [facility] (1 source) hydrOXYzine; Translations: [HYDROXYZINE] Drug Allergy 3 [facility] (1 source) AMOXICILLIN-POT CLAVULANATE; Translations: [AMOXICILLIN-POT CLAVULANATE] Propensity to adverse reactions to drug (disorder) 8 [facility] Medications Current Medications Medication Drug Class(es) [...] Corticosteroid Start: 12-11-2019 fluticasone 0.05 mg/inh Nasal [place] Nasal, Daily, Refill(s) 0 Start Date: 12/11/19 Status: Ordered fluticasone 0.05 mg/inh Nasal [place] (5 sources) Start: 12-11-2019 fluticasone 0.05 mg/inh Nasal [place] Nasal, Daily, Refill(s) 0 Start Date: 12/11/19 [...] disease (2 sources) Atherosclerotic heart disease of [place] coronary artery without angina pectoris; Translations: [Atherosclerotic heart disease of [place] coronary artery without angina pectoris] Onset: 3 [...] Onset: 3 Episodic Other aftercare (1 source) rn long term care (current) use of aspirin; Translations: [SNF CURRENT USE OF ASPIRIN] Onset: 3 Episodic Other aftercare (1 source) rn long term care (current) use of insulin; Translations: [SNF CURRENT USE OF INSULIN] Onset: 3 Episodic Other aftercare (1 source) rn long term care (current) use of oral hypoglycemic drugs; Translations: [PICKLE CUTTER USE ORAL HYPOGLYCEMIC DX] Onset: 3 Episodic Other aftercare (1 source) Other watermelon inspector (current) drug therapy; Translations: [OTH PICKLE CUTTER CURRENT DRUG THERAPY] Onset: 3 Episodic Other [...] Range Facility Office Visiton 09-28-2023 Follow-up visit [id number] Jose Ferreira 1940 M Date Provider Department Center 09/28/2023 ELYSE PATEL CARD [facility] Family History Problem Relation Age of Onset Cancer Father Alcohol abuse Father Family Status - Relation Status Age at Father Level of Service:89745 CO OFFICE/OUTPATIENT ESTABLISHED HIGH MDM 40-54 MIN Normal [facility] Lab Reportson 09-25-2023 Lab Reports [id number] .00TIFF Normal [facility] Ambulatory Visit Summaryon 1 11-25-2022 Ambulatory [...] (Welchol) fluticasone nasal (fluticasone 0.05 mg/inh Nasal [place]) furosemide (furosemide 20 mg Tab) gabapentin (gabapentin [...] [facility] [address] [place] [address] [phone] Medications What How Much When Instructions Unchanged [...] fluticasone nasal (fluticasone 0.05 mg/ inh Nasal [place]) Nasal Inhalation Every day Contact prescribing physician [...] Prostat (more content not included)... Normal [facility] Home Recordson 09-24 Assisted Records [id number] .00TIFF Normal [facility] Patient Educationon 09-24-20 23 Patient Education [...] and water are not available, use hand blind hanger. ? Disconnect the bag from the catheter and immediately attach a new bag to the catheter. ? Empty the used bag completely. ? Clean the used bag according to the hostler helper's instructions, or as told by your health care provider. ? Let the bag dry completely, and put it in a clean plastic bag before storing it. General instructions ? Always wash your hands before and after caring for your catheter and collection bag. Use soap and water. If soap and water are not available, use hand blind hanger. ? Always make sure there are no [...] have (more content not included)... Normal [facility] Urology Office/Clinic Noteon 09-24-2023 Urology Office/Clinic Note [...] PSA 08/21/23- 0.98 Pt was admitted to [facility] 09/11/23 due to Tachycardia. Post Op [...] Had sutures removed 09/12/23 [address] inpatient [address] [facility] ER. Pt had SP tube 24FR [...] When Contact Information YADY SALCIDO, Ozzy Velasquez, [facility] [address], [place] [phone] Additional Instructions: 3 wks Patient Education Suprapubic [...] 10 mg Tab fluticasone 0.05 mg/inh Nasal [place], Nasal, Daily furosemide 20 mg Tab, 40 [...] No. Yes, 11/ (more content not included)... [facility] Comment on above: Result Comment: Elec tronically Signed By: Ozzy CONTEH MD\.br\Date and Time Signed: 09/24/23 12:17 EST\.br\Electronically Co-Signed By: Anne-Marie Quinonez\.br\Date and Time Co-Signed: 09/24/23 12:14 EST Operative Reporton Operative Report [id number]. 00TIFF [facility] Lab Reportson 08-31-2023 Lab Reports [id number] .00TIFF [facility] Lab Reports [id number] .00TIFF [facility] Patient Educationon 08-27-20 Patient Education Urology [...] and water are not available, use hand blind hanger. ? Disconnect the bag from the catheter and immediately attach a new bag to the catheter. ? Empty the used bag completely. ? Clean the used bag according to the hostler helper's instructions, or as told by your health care provider. ? Let the bag dry completely, and put it in a clean plastic bag before storing it. General instructions ? Always wash your hands before and after caring for your catheter and collection bag. Use soap and water. If soap and water are not available, use hand blind hanger. ? Always make sure there are no [...] You have (more content not included)... Normal [facility] Urology Office/Clinic Noteon 08-27-2023 Urology Office/Clinic [...] [facility] [address], [place] [address]- Additional Instructions: f/u appt already scheduled Patient [...] ESWL (11/12/1998), right (more content not included)... [facility] Comment on above: Result Comment: Elec tronically Signed By: YADY SALCIDO, Ozzy Velasquez\.br\Date and Time Signed: 08/27/23 13:47 EST\.br\Electronically Co-Signed By: Cordelia Donato\.br\Date and Time Co-Signed: 08/27/23 13:45 EST Patient Correspondenceon Patient Correspondence [id number] .00TIFF [facility] Documentationon 08-22-2023 Documentation [id number] Jose Ferreira 1940 M Date Provider Department Center 08/22/2023 GEORGIE GTZ [facility] Family History Problem Relation Age of Onset Cancer Father Alcohol abuse Father Family Status - Relation Status Age at Father Normal [facility] Lab Reportson 08-22-2023 Lab Reports [id number] .00TIFF [facility] Lab Reports [id number] .00TIFF [facility] 36on 08-21-2023 36 You saw this patient 2 weeks ago in clinic. He now needs clearance to hold aspirin 325mg for 7 days for a cystoscopy and suprapubic catheter placement with Dr. Conteh. This is scheduled on 08/30/2023. He had pre-surgery testing done today at [facility] ([facility], labs) and I have scanned them into his media sales consultant for your review. Please advise. Thanks. [facility] Office Visiton 08-06-2023 Follow-up visit [id number] Jose Ferreira 1940 M Date Provider Department Center 08/06/2023 Trudy-GEORGIE MUNOZ CARD [facility] Family History Problem Relation Age of Onset Cancer Father Alcohol abuse Father Family Status - Relation Status Age at Father Level of Service:93280 CO OFFICE/OUTPATIENT ESTABLISHED LOW MDM 20-29 MIN [facility] Consent for Procedure/Surger yon 08-02-2023 Consent for Procedure/Surgery [id number] .00TIFF [facility] Formson 08-02-2023 Forms [id number] .00TIFF [facility] Physician Orderon 08-02-2023 Physician Order [id number] .00TIFF [facility] Retail - Clinical Noteon Retail - Clinical Note [id number] .00CD:127 [facility] Ambulatory Visit Summaryon 0 06-18-2023 Ambulatory [...] (Welchol) fluticasone nasal (fluticasone 0.05 mg/inh Nasal [place]) furosemide (furosemide 20 mg Tab) gabapentin (gabapentin [...] SALCIDO, Ozzy Velasquez Where: [facility] Patient Educationon 06-18-20 23 Patient Education Oncology [...] likelihood that the cancer will spread. ? [place] 6 or lower: This indicates that the cancer cells look similar to normal prostate cells (well differentiated). ? [place] 7: This indicates that the cancer cells [...] external be (more content not included)... Normal [facility] Reminderson 06-18-2023 Reminders - From: Anne-Marie Quinonez To: [facility] - Recalls Yady; Sent: 06/18/2023 18:05:27 EDT Show up: 08/18/2023 18:05:00 EDT Subject: PSA prior to appt Reminder Message Please Remember to:_have pt get PSA done prior to appt in 3 months. 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 PSA drawn at time of last encounter [place]/18/22[place].5 [place] [place] 06/11/23- 0.69 ([place]) Pt has condom catheter. Changes himself QOD. [...] [facility] [address], [place] [address] [phone] Additional Instructions: PSA (and possible Lupron inj) [...] 10 mg Tab fluticasone 0.05 mg/inh Nasal [place], Nasal, Daily furosemide 20 mg Tab, 40 [...] Never Smokeless To (more content not included)... [facility] Comment on above: Result Comment: Elec tronically Signed By: Ozzy CONTEH MD\.br\Date and Time Signed: 06/18/23 13:16 EDT\.br\Electronically Co-Signed By: Anne-Marie Quinonez\.br\Date and Time Co-Signed: 06/18/23 13:14 EDT Lab Reportson 06-15-2023 Lab Reports [id number]:127 Normal [facility] Office Visiton 04-16-2023 Follow-up visit [id number] Jose Ferreira 1940 M Date Provider Department Center 04/16/2023 120-GEORGIE MUNOZ BELEN [facility] Family History Problem Relation Age of Onset Cancer Father Alcohol abuse Father Family Status - Relation Status Age at Father Level of Service:06568 CO OFFICE/OUTPATIENT ESTABLISHED LOW MDM 20-29 MIN [facility] Office Visiton 04-04-2023 Follow-up visit [id number] Jose Ferreira 1940 M Date Provider Department Center 04/04/2023 [id number] SOTO BELEN [facility] Family History Problem Relation Age of Onset Cancer Father Alcohol abuse Father Family Status - Relation Status Age at Father Level of Service:82198 CO OFFICE/OUTPATIENT ESTABLISHED LOW MDM 20-29 MIN [facility] Office Visiton 03-28-2023 Follow-up visit [id number] Jose Ferreira 1940 M Date Provider Department Center 03/28/2023 Chaparro-NIA ROACH [facility] Family History Problem Relation Age of Onset Cancer Father Alcohol abuse Father Family Status - Relation Status Age at Father Level of Service:07234 CO OFFICE/OUTPATIENT ESTABLISHED MOD [facility] 30-39 MIN Reason for Visit and Comments: Atrial Fibrillation [80] Coronary Artery Disease [187] Congestive Heart Failure [127] Normal [facility] XR CHEST 2 Von 02-09-2023 XR [...] by: VALENTÍN ZIMMERMAN Date: 2023-02-09 16:00 Normal [facility] CULTURE SPUTUMon 01-12-2023 CULTURE SPUTUM Culture [...] Trimethoprim/Sulfamet hoxazole <=10 S F Normal [facility] Comment on above: Performed By: #### B FRAME MAKER, CMP #### [facility] [address] [place] [address] Dr. Norbert Polk BNPon 01-11-2023 Natriuretic peptide B (Bld) [Mass/Vol] 1177.0 pg/mL Normal <=1,800.0 [facility] Comment on above: Performed By: #### B FRAME MAKER, CMP #### [facility] [address] [place] [address] Dr. Norbert Polk CBC AUTO DIFFon 01-11-2023 BASO # 0.1 103/ul Normal 0.0-0.1 [facility] Comment on above: Performed By: #### P OCGLUC #### [facility] [address] [place] [address] Dr. Norbert Polk Basophils/100 WBC (Bld) 0.5 % Normal 0.2-2.0 [facility] Comment on above: Performed By: #### P OCGLUC #### [facility] [address] [place] [address] Dr. Norbert Polk EO # 0.7 103/ul Normal 0.0-0.7 [facility] Comment on above: Performed By: #### P OCGLUC #### [facility] [address] [place] [address] Dr. Norbert Polk Eosinophils/100 WBC (Bld) 7.0 % Normal 0.9-7.0 [facility] Comment on above: Performed By: #### P OCGLUC #### [facility] [address] [place] [address] Dr. Norbert Polk Erythrocyte distribution width (RBC) [Ratio] 14.5 % Normal 11.0-15.0 [facility] Comment on above: Performed By: #### P OCGLUC #### [facility] [address] [place] [address] Dr. Norbert Polk Hematocrit (Bld) [Volume fraction] 29.2 % Critically low 42.0-54.0 [facility] Comment on above: Performed By: #### P OCGLUC #### [facility] [address] [address] [address] Norbert Polk Hemoglobin (Bld) [Mass/Vol] 8.9 g/dL Critically low 14.0-18.0 [facility] Comment on above: Performed By: #### P OCGLUC #### [facility] [address] [address] [address] Norbert Polk IG # 0.05 10e3/ul Critically high 0.00-0.03 [facility] Comment on above: Performed By: #### P OCGLUC #### [facility] [address] [address] [address] Nrobert Polk IG % 0.5 % Normal 0.0-0.5 [facility] Comment on above: Performed By: #### P OCGLUC #### [facility] [address] [address] [address] Norbert Polk LYMPH # 2.5 103/ul Normal 1.2-3.8 [facility] Comment on above: Performed By: #### P OCGLUC #### [facility] [address] [address] [address] Norbert Polk Lymphocytes/100 WBC (Bld) 25.7 % Normal 20.5-60.0 [facility] Comment on above: Performed By: #### P OCGLUC #### [facility] [address] [address] [address] Norbert Polk MANUAL DIFF REQ NO Normal [facility] Comment on above: Performed By: #### P OCGLUC #### [facility] [address] [address] [address] Norbert Polk MCH (RBC) [Entitic mass] 29.9 pg Normal 25.9-34.0 [facility] Comment on above: Performed By: #### P OCGLUC #### [facility] [address] [address] [address] Norbert Polk MCHC (RBC) [Mass/Vol] 30.5 g/dL Normal 29.9-35.2 [facility] Comment on above: Performed By: #### P OCGLUC #### [facility] [address] [address] [address] Norbert Polk MCV (RBC) [Entitic vol] 98.0 fL Critically high 80.0-94.0 [facility] Comment on above: Performed By: #### P OCGLUC #### [facility] [address] [address] [address] Norbert Polk MONO # 0.6 103/ul Normal 0.3-0.8 [facility] Comment on above: Performed By: #### P OCGLUC #### [facility] [address] [address] [address] Norbert Polk Monocytes/100 WBC (Bld) 6.7 % Normal 1.7-12.0 [facility] Comment on above: Performed By: #### P OCGLUC #### [facility] [address] [address] [address] Norbert Polk NEUT # 5.7 103/ul Normal 1.4-6.5 [facility] Comment on above: Performed By: #### P OCGLUC #### [facility] [address] [address] [address] Norbert Polk Neutrophils/100 WBC (Bld) 59.6 % Normal 43.0-75.0 [facility] Comment on above: Performed By: #### P OCGLUC #### [facility] [address] [address] [address] Norbert Polk Platelet mean volume (Bld) [Entitic vol] 9.5 fL Normal 9.5-13.5 [facility] Comment on above: Performed By: #### P OCGLUC #### [facility] [address] [address] [address] Norbert Polk PLT 245 103/ul Normal 150-450 [facility] Comment on above: Performed By: #### P OCGLUC #### [facility] [address] [address] [address] Norbert Polk RBC 2.98 106/ul Critically low 4.70-6.10 [facility] Comment on above: Performed By: #### P OCGLUC #### [facility] [address] [place] [address] Dr. Norbert Polk WBC 9.6 103/ul Normal 4.0-11.0 [facility] Comment on above: Performed By: #### P OCGLUC #### [facility] [address] [address] [address] Norbert Polk OCC BLD IMMUNOASSAYon 2022 OCCULT BLOOD Positive Abnormal NEGATIVE [facility] Comment on above: Performed By: #### P OCGLUC #### [facility] [address] [address] [address] Norbert Polk POINT OF CARE GLUCOSEon 12-21 Glucose [Mass/Vol] 305 mg/dL Critically high 74-106 [facility] Comment on above: Performed By: #### C MP, CMADM, BNP #### [facility] [address] [place] [address] Dr. Norbert Polk PROF 14(COMP METB)on 023 Albumin [Mass/Vol] 2.6 g/dL Critically low 3.4-5.[address] [facility] Comment on above: Performed By: #### B FRAME MAKER, CMP #### [facility] [address] [place] [address] Dr. Norbert Polk Albumin/Globulin [Mass ratio] 0.7 {ratio} Normal [facility] Comment on above: Performed By: #### B FRAME MAKER, CMP #### [facility] [address] [place] [address] Dr. Norbert Polk ALP [Catalytic activity/Vol] 61 U/L Normal 46-116 [facility] Comment on above: Performed By: #### B FRAME MAKER, CMP #### [facility] [address] [place] [address] Dr. Norbert Polk ALT [Catalytic activity/Vol] 19 U/L Normal 16-63 [facility] Comment on above: Performed By: #### B FRAME MAKER, CMP #### [facility] [address] [place] [address] Dr. Norbert Polk Anion gap [Moles/Vol] 12.8 mmol/L Normal [facility] Comment on above: Performed By: #### B FRAME MAKER, CMP #### [facility] [address] [address] [address] Norbert Polk AST [Catalytic activity/Vol] 21 U/L Normal 15-37 [facility] Comment on above: Performed By: #### B FRAME MAKER, CMP #### [facility] [address] [place] [address] Dr. Norbert Polk Bilirubin [Mass/Vol] 0.1 mg/dL Critically low 0.2-1.0 [facility] Comment on above: Performed By: #### B FRAME MAKER, CMP #### [facility] [address] [place] [address] Dr. Norbert Polk Calcium [Mass/Vol] 9.1 mg/dL Normal 8.5-10.1 [facility] Comment on above: Performed By: #### B FRAME MAKER, CMP #### [facility] [address] [place] [address] Dr. Norbert Polk Chloride [Moles/Vol] 105 mmol/L Normal 98-107 [facility] Comment on above: Performed By: #### B FRAME MAKER, CMP #### [facility] [address] [place] [address] Dr. Norbert Polk CO2 [Moles/Vol] 26.4 mmol/L Normal 21.0-32.0 [facility] Comment on above: Performed By: #### B FRAME MAKER, CMP #### [facility] [address] [place] [address] Dr. Norbert Polk Creatinine [Mass/Vol] 1.83 mg/dL Critically high 0.70-1.30 [facility] Comment on above: Performed By: #### B FRAME MAKER, CMP #### [facility] [address] [place] [address] Dr. Norbert Polk EGFR-AF [place] 43 mL/min/1.73m2 Critically low >=60 [facility] Comment on above: Performed By: #### B FRAME MAKER, CMP #### [facility] [address] [place] [address] Dr. Norbert Polk EGFR-NON AF [place] 35 mL/min/1.73m2 Critically low >=60 [facility] Comment on above: Performed By: #### B FRAME MAKER, CMP #### [facility] [address] [place] [address] Dr. Norbert Polk Globulin (S) [Mass/Vol] 3.9 g/dL Normal [facility] Comment on above: Performed By: #### B FRAME MAKER, CMP #### [facility] [address] [place] [address] Dr. Norbert Polk Glucose [Mass/Vol] 176 mg/dL Critically high 74-106 [facility] Comment on above: Performed By: #### B FRAME MAKER, CMP #### [facility] [address] [place] [address] Dr. Norbert Polk Potassium [Moles/Vol] 5.2 mmol/L Critically high 3.5-5.1 [facility] Comment on above: Performed By: #### B FRAME MAKER, CMP #### [facility] [address] [place] [address] Dr. Norbert Polk Protein [Mass/Vol] 6.5 g/dL Normal 6.4-8.2 [facility] Comment on above: Performed By: #### B FRAME MAKER, CMP #### [facility] [address] [place] [address] Dr. Norbert Polk Sodium [Moles/Vol] 139 mmol/L Normal 136-145 [facility] Comment on above: Performed By: #### B FRAME MAKER, CMP #### [facility] [address] [place] [address] Dr. Norbert Polk Urea nitrogen [Mass/Vol] 38.0 mg/dL Critically high 7.0-18.0 [facility] Comment on above: Performed By: #### B FRAME MAKER, CMP #### [facility] [address] [place] [address] Dr. Norbert Polk Urea nitrogen/Creatinine [Mass ratio] 20.8 mg/mg Normal [facility] Comment on above: Performed By: #### B FRAME MAKER, CMP #### [facility] [address] [place] [address] Dr. Norbert Polk XR KUB 1 VIEWon [...] ROLANDA SHIELDS Date: 2023-01-11 06:08 Normal [facility] BNPon 01-10-2023 Natriuretic peptide B (Bld) [Mass/Vol] 881.0 pg/mL Normal <=1,800.0 [facility] Comment on above: Performed By: #### P OCGLUC #### [facility] [address] [place] [address] Dr. Norbert Polk CBC AUTO DIFFon 01-10-2023 BASO # 0.0 103/ul Normal 0.0-0.1 [facility] Comment on above: Performed By: #### C MP, CMADM, BNP #### [facility] [address] [place] [address] Dr. Norbert Polk Basophils/100 WBC (Bld) 0.4 % Normal 0.2-2.0 [facility] Comment on above: Performed By: #### C MP, CMADM, BNP #### [facility] [address] [place] [address] Dr. Norbert Polk EO # 0.5 103/ul Normal 0.0-0.7 [facility] Comment on above: Performed By: #### C MP, CMADM, BNP #### [facility] [address] [place] [address] Dr. Norbert Polk Eosinophils/100 WBC (Bld) 5.2 % Normal 0.9-7.0 [facility] Comment on above: Performed By: #### C MP, CMADM, BNP #### [facility] [address] [place] [address] Dr. Norbert Polk Erythrocyte distribution width (RBC) [Ratio] 14.5 % Normal 11.0-15.0 [facility] Comment on above: Performed By: #### C MP, CMADM, BNP #### [facility] [address] [place] [place] [address] Dr. Norbert Polk Hematocrit (Bld) [Volume fraction] 27.4 % Critically low 42.0-54.0 [facility] Comment on above: Performed By: #### C MP, CMADM, BNP #### [facility] [address] [place] [address] Dr. Norbert Polk Hemoglobin (Bld) [Mass/Vol] 8.6 g/dL Critically low 14.0-18.0 [facility] Comment on above: Performed By: #### C MP, CMADM, BNP #### [facility] [address] [place] [address] Dr. Norbert Polk IG # 0.06 10e3/ul Critically high 0.00-0.03 [facility] Comment on above: Performed By: #### C MP, CMADM, BNP #### [facility] [address] [place] [address] Dr. Norbert Polk IG % 0.7 % Critically high 0.0-0.5 [facility] Comment on above: Performed By: #### C MP, CMADM, BNP #### [facility] [address] [place] [address] Dr. Nrobert Polk LYMPH # 2.5 103/ul Normal 1.2-3.8 [facility] Comment on above: Performed By: #### C MP, CMADM, BNP #### [facility] [address] [place] [address] Dr. Norbert Polk Lymphocytes/100 WBC (Bld) 27.2 % Normal 20.5-60.0 [facility] Comment on above: Performed By: #### C MP, CMADM, BNP #### [facility] [address] [place] [address] Dr. Norbert Polk MANUAL DIFF REQ NO Normal [facility] Comment on above: Performed By: #### C MP, CMADM, BNP #### [facility] [address] [place] [address] Dr. Norbert Polk MCH (RBC) [Entitic mass] 30.9 pg Normal 25.9-34.0 [facility] Comment on above: Performed By: #### C MP, CMADM, BNP #### [facility] [address] [place] [address] Dr. Norbert Polk MCHC (RBC) [Mass/Vol] 31.4 g/dL Normal 29.9-35.2 [facility] Comment on above: Performed By: #### C MP, CMADM, BNP #### [facility] [address] [place] [address] Dr. Norbert Polk MCV (RBC) [Entitic vol] 98.6 fL Critically high 80.0-94.0 [facility] Comment on above: Performed By: #### C MP, CMADM, BNP #### [facility] [address] [place] [address] Dr. Norbert Polk MONO # 0.6 103/ul Normal 0.3-0.8 [facility] Comment on above: Performed By: #### C MP, CMADM, BNP #### [facility] [address] [place] [address] Dr. Norbert Polk Monocytes/100 WBC (Bld) 6.4 % Normal 1.7-12.0 [facility] Comment on above: Performed By: #### C MP, CMADM, BNP #### [facility] [address] [place] [address] Dr. Norbert Polk NEUT # 5.5 103/ul Normal 1.4-6.5 [facility] Comment on above: Performed By: #### C MP, CMADM, BNP #### [facility] [address] [place] [address] Dr. Norbert Polk Neutrophils/100 WBC (Bld) 60.1 % Normal 43.0-75.0 [facility] Comment on above: Performed By: #### C MP, CMADM, BNP #### [facility] [address] [place] [address] Dr. Norbert Polk Platelet mean volume (Bld) [Entitic vol] 9.3 fL Critically low 9.5-13.5 [facility] Comment on above: Performed By: #### C MP, CMADM, BNP #### [facility] [address] [address] [address] Norbert Polk PLT 219 103/ul Normal 150-450 [facility] Comment on above: Performed By: #### C MP, CMADM, BNP #### [facility] [address] [address] [address] Norbert Polk RBC 2.78 106/ul Critically low 4.70-6.10 [facility] Comment on above: Performed By: #### C MP, CMADM, BNP #### [facility] [address] [address] [address] Norbert Polk WBC 9.2 103/ul Normal 4.0-11.0 [facility] Comment on above: Performed By: #### C MP, CMADM, BNP #### [facility] [address] [place] [address] Dr. Norbert Polk BASO # 0.0 103/ul Normal 0.0-0.1 [facility] Comment on above: Performed By: #### B FRAME MAKER, CMP #### [facility] [address] [place] [address] Dr. Norbert Polk Basophils/100 WBC (Bld) 0.3 % Normal 0.2-2.0 [facility] Comment on above: Performed By: #### B FRAME MAKER, CMP #### [facility] [address] [place] [address] Dr. Norbert Polk EO # 0.5 103/ul Normal 0.0-0.7 [facility] Comment on above: Performed By: #### B FRAME MAKER, CMP #### [facility] [address] [place] [address] Dr. Norbert Polk Eosinophils/100 WBC (Bld) 5.9 % Normal 0.9-7.0 [facility] Comment on above: Performed By: #### B FRAME MAKER, CMP #### [facility] [address] [place] [address] Dr. Norbert Polk Erythrocyte distribution width (RBC) [Ratio] 14.3 % Normal 11.0-15.0 [facility] Comment on above: Performed By: #### B FRAME MAKER, CMP #### [facility] [address] [place] [address] Dr. Norbert Polk Hematocrit (Bld) [Volume fraction] 27.2 % Critically low 42.0-54.0 [facility] Comment on above: Performed By: #### B FRAME MAKER, CMP #### [facility] [address] [place] [address] Dr. Norbert Polk Hemoglobin (Bld) [Mass/Vol] 8.5 g/dL Critically low 14.0-18.0 [facility] Comment on above: Performed By: #### B FRAME MAKER, CMP #### [facility] [address] [place] [address] Dr. Norbert Polk IG # 0.08 10e3/ul Critically high 0.00-0.03 [facility] Comment on above: Performed By: #### B FRAME MAKER, CMP #### [facility] [address] [place] [address] Dr. Norbert Polk IG % 0.9 % Critically high 0.0-0.5 [facility] Comment on above: Performed By: #### B FRAME MAKER, CMP #### [facility] [address] [place] [address] Dr. Norbert Polk LYMPH # 2.4 103/ul Normal 1.2-3.8 [facility] Comment on above: Performed By: #### B FRAME MAKER, CMP #### [facility] [address] [place] [address] Dr. Norbert Polk Lymphocytes/100 WBC (Bld) 27.6 % Normal 20.5-60.0 [facility] Comment on above: Performed By: #### B FRAME MAKER, CMP #### [facility] [address] [place] [address] Dr. Norbert Polk MANUAL DIFF REQ NO Normal [facility] Comment on above: Performed By: #### B FRAME MAKER, CMP #### [facility] [address] [place] [address] Dr. Norbert Polk MCH (RBC) [Entitic mass] 30.6 pg Normal 25.9-34.0 [facility] Comment on above: Performed By: #### B FRAME MAKER, CMP #### [facility] [address] [place] [address] Dr. Norbert Polk MCHC (RBC) [Mass/Vol] 31.3 g/dL Normal 29.9-35.2 [facility] Comment on above: Performed By: #### B FRAME MAKER, CMP #### [facility] [address] [place] [address] Dr. Norbert Polk MCV (RBC) [Entitic vol] 97.8 fL Critically high 80.0-94.0 [facility] Comment on above: Performed By: #### B FRAME MAKER, CMP #### [facility] [address] [place] [address] Dr. Norbert Polk MONO # 0.7 103/ul Normal 0.3-0.8 [facility] Comment on above: Performed By: #### B FRAME MAKER, CMP #### [facility] [address] [place] [address] Dr. Norbert Polk Monocytes/100 WBC (Bld) 7.7 % Normal 1.7-12.0 [facility] Comment on above: Performed By: #### B FRAME MAKER, CMP #### [facility] [address] [place] [address] Dr. Norbert Polk NEUT # 4.9 103/ul Normal 1.4-6.5 [facility] Comment on above: Performed By: #### B FRAME MAKER, CMP #### [facility] [address] [place] [address] Dr. Norbert Polk Neutrophils/100 WBC (Bld) 57.6 % Normal 43.0-75.0 [facility] Comment on above: Performed By: #### B FRAME MAKER, CMP #### [facility] [address] [place] [address] Dr. Norbert Polk Platelet mean volume (Bld) [Entitic vol] 9.5 fL Normal 9.5-13.5 [facility] Comment on above: Performed By: #### B FRAME MAKER, CMP #### [facility] [address] [address] [address] Norbert Polk PLT 243 103/ul Normal 150-450 [facility] Comment on above: Performed By: #### B FRAME MAKER, CMP #### [facility] [address] [address] [address] Norbert Polk RBC 2.78 106/ul Critically low 4.70-6.10 [facility] Comment on above: Performed By: #### B FRAME MAKER, CMP #### [facility] [address] [address] [address] Norbert Polk WBC 8.6 103/ul Normal 4.0-11.0 [facility] Comment on above: Performed By: #### B FRAME MAKER, CMP #### [facility] [address] [address] [address] Norbert Polk POINT OF CARE GLUCOSEon 12-21 Glucose [Mass/Vol] 176 mg/dL Critically high 74-106 [facility] Comment on above: Performed By: #### B FRAME MAKER, CMP #### [facility] [address] [address] [address] Norbert Polk Glucose [Mass/Vol] 181 mg/dL Critically high -106 [facility] Comment on above: Performed By: #### P OCGLUC #### [facility] [address] [address] [address] Norbert Polk Glucose [Mass/Vol] 309 mg/dL Critically high 74-106 [facility] Comment on above: Performed By: #### B FRAME MAKER, CMP #### [facility] [address] [address] [address] Norbert Polk PROF 14(COMP METB)on 023 Albumin [Mass/Vol] 2.4 g/dL Critically low 3.4-5.[address] [facility] Comment on above: Performed By: #### B FRAME MAKER, CMP #### [facility] [address] [place] [address] Dr. Norbert Polk Albumin/Globulin [Mass ratio] 0.6 {ratio} Normal [facility] Comment on above: Performed By: #### B FRAME MAKER, CMP #### [facility] [address] [address] [address] Norbert Polk ALP [Catalytic activity/Vol] 57 U/L Normal 46-116 [facility] Comment on above: Performed By: #### B FRAME MAKER, CMP #### [facility] [address] [address] [address] Norbert Polk ALT [Catalytic activity/Vol] 17 U/L Normal 16-63 [facility] Comment on above: Performed By: #### B FRAME MAKER, CMP #### [facility] [address] [address] [address] Norbert Polk Anion gap [Moles/Vol] 11.1 mmol/L Normal [facility] Comment on above: Performed By: #### B FRAME MAKER, CMP #### [facility] [address] [address] [address] Norbert Polk AST [Catalytic activity/Vol] 13 U/L Critically low 15-37 [facility] Comment on above: Performed By: #### B FRAME MAKER, CMP #### [facility] [address] [address] [address] Norbert Polk Bilirubin [Mass/Vol] 0.1 mg/dL Critically low 0.2-1.0 [facility] Comment on above: Performed By: #### B FRAME MAKER, CMP #### [facility] [address] [address] [address] Norbert Polk Calcium [Mass/Vol] 8.8 mg/dL Normal 8.5-10.1 [facility] Comment on above: Performed By: #### B FRAME MAKER, CMP #### [facility] [address] [address] [address] Norbert Polk Chloride [Moles/Vol] 112 mmol/L Critically high 98-107 [facility] Comment on above: Performed By: #### B FRAME MAKER, CMP #### [facility] [address] [address] [address] Norbert Polk CO2 [Moles/Vol] 25.9 mmol/L Normal 21.0-32.0 [facility] Comment on above: Performed By: #### B FRAME MAKER, CMP #### [facility] [address] [place] [address] Dr. Norbert Polk Creatinine [Mass/Vol] 1.94 mg/dL Critically high 0.70-1.30 [facility] Comment on above: Performed By: #### B FRAME MAKER, CMP #### [facility] [address] [place] [address] Dr. Norbert Polk EGFR-AF BURUNDIAN 40 mL/min/1.73m2 Critically low >=60 [facility] Comment on above: Performed By: #### B FRAME MAKER, CMP #### [facility] [address] [place] [address] Dr. Norbert Polk EGFR-NON AF B[place]UNDIAN 33 mL/min/1.73m2 Critically low >=60 [facility] Comment on above: Performed By: #### B FRAME MAKER, CMP #### [facility] [address] [place] [address] Dr. Norbert Polk Globulin (S) [Mass/Vol] 3.7 g/dL Normal [facility] Comment on above: Performed By: #### B FRAME MAKER, CMP #### [facility] [address] [place] [address] Dr. Norbert Polk Glucose [Mass/Vol] 91 mg/dL Normal 74-106 [facility] Comment on above: Performed By: #### B FRAME MAKER, CMP #### [facility] [address] [place] [address] Dr. Norbert Polk Potassium [Moles/Vol] 5.0 mmol/L Normal 3.5-5.1 [facility] Comment on above: Performed By: #### B FRAME MAKER, CMP #### [facility] [address] [place] [address] Dr. Norbert Polk Protein [Mass/Vol] 6.1 g/dL Critically low 6.4-8.2 [facility] Comment on above: Performed By: #### B FRAME MAKER, CMP #### [facility] [address] [place] [address] Dr. Norbert Polk Sodium [Moles/Vol] 144 mmol/L Normal 136-145 [facility] Comment on above: Performed By: #### B FRAME MAKER, CMP #### [facility] [address] [place] [address] Dr. Norbert Polk Urea nitrogen [Mass/Vol] 48.0 mg/dL Critically high 7.0-18.0 [facility] Comment on above: Performed By: #### B FRAME MAKER, CMP #### [facility] [address] [place] [address] Dr. Norbert Polk Urea nitrogen/Creatinine [Mass ratio] 24.7 mg/mg Normal [facility] Comment on above: Performed By: #### B FRAME MAKER, CMP #### [facility] [address] [place] [address] Dr. Norbert Polk BNPon 01-09-2023 Natriuretic peptide B (Bld) [Mass/Vol] 1067.0 pg/mL Normal <=1,800.0 [facility] Comment on above: Performed By: #### C MP, CMADM, BNP #### [facility] [address] [place] [address] Dr. Norbert Polk CARDIAC JENNA ADMITon 023 CK [Catalytic activity/Vol] 50 U/L Normal 39-308 [facility] Comment on above: Performed By: #### C MP, CMADM, BNP #### [facility] [address] [place] [address] Dr. Norbert Polk CK.MB [Mass/Vol] 2.37 ng/mL Normal <=3.60 [facility] Comment on above: Performed By: #### C MP, CMADM, BNP #### [facility] [address] [place] [address] Dr. Norbert Polk HSTROP 10.4 pg/mL Normal 4.0-76.1 [facility] Comment on above: Result Comment: CUT- OFF POINTS HAVE BEEN ESTABLISHED BASED ON THE FOURTH UNIVERSAL DEFINITIONS OF MYOCARDIAL INFARCTION. THE UPPER REFERENCE LIMIT (URL) OF TROPONIN, DEFINED THE 99TH PERCENTILE OF cTnI DISTRIBUTION IN A REFERENCE POPULATION, HAS BEEN CONFIRMED THE DECISION THRESHOLD FOR CO DIAGNOSIS. Performed By: #### C MP, CMADM, BNP #### [facility] [address] [address] [address] Norbert Polk SILVIO 257 ng/mL Critically high 16-96 [facility] Comment on above: Performed By: #### C MP, CMADM, BNP #### [facility] [address] [address] [address] Norbert Polk CBC AUTO DIFFon 01-09-2023 BASO # 0.1 103/ul Normal 0.0-0.1 [facility] Comment on above: Performed By: #### B FRAME MAKER, CMP #### [facility] [address] [place] [address] Dr. Norbert Polk Basophils/100 WBC (Bld) 0.4 % Normal 0.2-2.0 [facility] Comment on above: Performed By: #### B FRAME MAKER, CMP #### [facility] [address] [place] [address] Dr. Norbert Polk EO # 0.7 103/ul Normal 0.0-0.7 [facility] Comment on above: Performed By: #### B FRAME MAKER, CMP #### [facility] [address] [address] [address] Norbert Polk Eosinophils/100 WBC (Bld) 6.3 % Normal 0.9-7.0 [facility] Comment on above: Performed By: #### B FRAME MAKER, CMP #### [facility] [address] [place] [address] Dr. Norbert Polk Erythrocyte distribution width (RBC) [Ratio] 14.1 % Normal 11.0-15.0 [facility] Comment on above: Performed By: #### B FRAME MAKER, CMP #### [facility] [address] [place] [address] Dr. Norbert Polk Hematocrit (Bld) [Volume fraction] 33.2 % Critically low 42.0-54.0 [facility] Comment on above: Performed By: #### B FRAME MAKER, CMP #### [facility] [address] [place] [address] Dr. Norbert Polk Hemoglobin (Bld) [Mass/Vol] 10.4 g/dL Critically low 14.0-18.0 [facility] Comment on above: Performed By: #### B FRAME MAKER, CMP #### [facility] [address] [place] [address] Dr. Norbert Polk IG # 0.08 10e3/ul Critically high 0.00-0.03 [facility] Comment on above: Performed By: #### B FRAME MAKER, CMP #### [facility] [address] [place] [address] Dr. Norbert Polk IG % 0.7 % Critically high 0.0-0.5 [facility] Comment on above: Performed By: #### B FRAME MAKER, CMP #### [facility] [address] [place] [address] Dr. Norbert Polk LYMPH # 2.7 103/ul Normal 1.2-3.8 [facility] Comment on above: Performed By: #### B FRAME MAKER, CMP #### [facility] [address] [place] [address] Dr. Norbert Polk Lymphocytes/100 WBC (Bld) 24.1 % Normal 20.5-60.0 [facility] Comment on above: Performed By: #### B FRAME MAKER, CMP #### [facility] [address] [place] [address] Dr. Norbert Polk MANUAL DIFF REQ NO Normal [facility] Comment on above: Performed By: #### B FRAME MAKER, CMP #### [facility] [address] [place] [address] Dr. Norbert Polk MCH (RBC) [Entitic mass] 30.4 pg Normal 25.9-34.0 [facility] Comment on above: Performed By: #### B FRAME MAKER, CMP #### [facility] [address] [place] [address] Dr. Norbert Polk MCHC (RBC) [Mass/Vol] 31.3 g/dL Normal 29.9-35.2 [facility] Comment on above: Performed By: #### B FRAME MAKER, CMP #### [facility] [address] [place] [address] Dr. Norbert Polk MCV (RBC) [Entitic vol] 97.1 fL Critically high 80.0-94.0 [facility] Comment on above: Performed By: #### B FRAME MAKER, CMP #### [facility] [address] [place] [address] Dr. Norbert Polk MONO # 0.8 103/ul Normal 0.3-0.8 [facility] Comment on above: Performed By: #### B FRAME MAKER, CMP #### [facility] [address] [place] [address] Dr. Norbert Polk Monocytes/100 WBC (Bld) 7.2 % Normal 1.7-12.0 [facility] Comment on above: Performed By: #### B FRAME MAKER, CMP #### [facility] [address] [place] [address] Dr. Norbert Polk NEUT # 7.0 103/ul Critically high 1.4-6.5 [facility] Comment on above: Performed By: #### B FRAME MAKER, CMP #### [facility] [address] [place] [address] Dr. Norbert Polk Neutrophils/100 WBC (Bld) 61.3 % Normal 43.0-75.0 [facility] Comment on above: Performed By: #### B FRAME MAKER, CMP #### [facility] [address] [place] [address] Dr. Norbert Polk Platelet mean volume (Bld) [Entitic vol] 9.4 fL Critically low 9.5-13.5 [facility] Comment on above: Performed By: #### B FRAME MAKER, CMP #### [facility] [address] [place] [address] Dr. Norbert Polk PLT 287 103/ul Normal 150-450 [facility] Comment on above: Performed By: #### B FRAME MAKER, CMP #### [facility] [address] [place] [address] Dr. Norbert Polk RBC 3.42 106/ul Critically low 4.70-6.10 [facility] Comment on above: Performed By: #### B FRAME MAKER, CMP #### [facility] [address] [place] [address] Dr. Norbert Polk WBC 11.4 103/ul Critically high 4.0-11.0 [facility] Comment on above: Performed By: #### B FRAME MAKER, CMP #### [facility] [address] [place] [address] Dr. Norbert Polk CULTURE BLOODon 01-09-2023 Microscopic examination of blood, culture Culture Observations: NO GROWTH AT 5 DAYS. Normal [facility] Comment on above: Performed By: #### B FRAME MAKER, CMP #### [facility] [address] [place] [address] Dr. Norbert Polk Covid-19 PCR (CVDTB)on 12-21 SARS-CoV-2 (COVID-19) RNA KAYLIN+probe Ql (Unsp spec) Not detected Normal NOT DETECTED [facility] Comment on above: Result Comment: When [...] for this test is supported by the Communications Senior Associate of Health and Human Service's declaration that [...] By: #### C MP, CMADM, BNP #### [facility] [address] [place] [address] Dr. Norbert Polk ER URINE PROFILEon 3 Bilirubin Ql (U) Negative Normal NEGATIVE [facility] Comment on above: Performed By: #### B FRAME MAKER, CMP #### [facility] [address] [place] [address] Dr. Norbert Polk Clarity (U) CLEAR Normal CLEAR [facility] Comment on above: Performed By: #### B FRAME MAKER, CMP #### [facility] [address] [place] [address] Dr. Norbert Polk Color (U) LT. YELLOW Normal YELLOW [facility] Comment on above: Performed By: #### B FRAME MAKER, CMP #### [facility] [address] [place] [address] Dr. Norbert ROMAN A micrscopic examination will be performed if indicated. Normal [facility] Comment on above: Performed By: #### B FRAME MAKER, CMP #### [facility] [address] [place] [address] Dr. Norbert Polk Glucose Ql (U) Negative Normal NEGATIVE [facility] Comment on above: Performed By: #### B FRAME MAKER, CMP #### [facility] [address] [place] [address] Dr. Norbert Polk Hemoglobin Ql (U) Negative Normal NEGATIVE [facility] Comment on above: Performed By: #### B FRAME MAKER, CMP #### [facility] [address] [place] [address] Dr. Norbert Polk Ketones Ql (U) Negative Normal NEGATIVE [facility] Comment on above: Performed By: #### B FRAME MAKER, CMP #### [facility] [address] [place] [address] Dr. Norbert Polk LEUKOCYTES Negative Normal NEGATIVE [facility] Comment on above: Performed By: #### B FRAME MAKER, CMP #### [facility] [address] [place] [address] Dr. Norbert Polk Nitrite Ql (U) Negative Normal NEGATIVE [facility] Comment on above: Performed By: #### B FRAME MAKER, CMP #### [facility] [address] [place] [address] Dr. Norbert Polk pH (U) 6.0 [pH] Normal 5-9 [facility] Comment on above: Performed By: #### B FRAME MAKER, CMP #### [facility] [address] [place] [address] Dr. Norbert Polk SPEC GRAVITY 1.010 Normal 1.005-<=1.025 [facility] Comment on above: Performed By: #### B FRAME MAKER, CMP #### [facility] [address] [address] [address] Norbert Polk UA PROTEIN Negative Normal NEGATIVE/ TRACE [facility] Comment on above: Performed By: #### B FRAME MAKER, CMP #### [facility] [address] [address] [address] Norbert Polk UR MICRO IND NOT INDICATED Normal [facility] Comment on above: Performed By: #### B FRAME MAKER, CMP #### [facility] [address] [address] [address] Norbert Polk Urobilinogen Qn (U) 0.2 {Karan'U}/dL Normal 0.2 - 1. 0 [facility] Comment on above: Performed By: #### B FRAME MAKER, CMP #### [facility] [address] [place] [address] Dr. Norbert Polk LACTATE/LACTIC ACIDon 2022 Lactate [Moles/Vol] 2.5 mmol/L Critically high 0.4-2.0 [facility] Comment on above: Performed By: #### C MP, CMADM, BNP #### [facility] [address] [place] [address] Dr. Norbert Polk Lactate [Moles/Vol] 3.8 mmol/L Critically high 0.4-2.0 [facility] Comment on above: Performed By: #### P OCGLUC #### [facility] [address] [place] [address] Dr. Norbert Polk POINT OF CARE GLUCOSEon 12-21 Glucose [Mass/Vol] 197 mg/dL Critically high 74-106 [facility] Comment on above: Performed By: #### B FRAME MAKER, CMP #### [facility] [address] [place] [address] Dr. Norbert Polk PROF 14(COMP METB)on 023 Albumin [Mass/Vol] 3.0 g/dL Critically low 3.4-5.[address] [facility] Comment on above: Performed By: #### C MP, CMADM, BNP #### [facility] [address] [place] [address] Dr. Norbert Polk Albumin/Globulin [Mass ratio] 0.7 {ratio} Normal [facility] Comment on above: Performed By: #### C MP, CMADM, BNP #### [facility] [address] [address] [address] Norbert Polk ALP [Catalytic activity/Vol] 70 U/L Normal 46-116 [facility] Comment on above: Performed By: #### C MP, CMADM, BNP #### [facility] [address] [address] [address] Norbert Polk ALT [Catalytic activity/Vol] 22 U/L Normal 16-63 [facility] Comment on above: Performed By: #### C MP, CMADM, BNP #### [facility] [address] [address] [address] Norbert Polk Anion gap [Moles/Vol] 15.3 mmol/L Normal [facility] Comment on above: Performed By: #### C MP, CMADM, BNP #### [facility] [address] [address] [address] Norbert Polk AST [Catalytic activity/Vol] 16 U/L Normal 15-37 [facility] Comment on above: Performed By: #### C MP, CMADM, BNP #### [facility] [address] [address] [address] Norbert Polk Bilirubin [Mass/Vol] 0.2 mg/dL Normal 0.2-1.0 [facility] Comment on above: Performed By: #### C MP, CMADM, BNP #### [facility] [address] [address] [address] Norbert Polk Calcium [Mass/Vol] 10.1 mg/dL Normal 8.5-10.1 [facility] Comment on above: Performed By: #### C MP, CMADM, BNP #### [facility] [address] [address] [address] Norbert Polk Chloride [Moles/Vol] 106 mmol/L Normal 98-107 [facility] Comment on above: Performed By: #### C MP, CMADM, BNP #### [facility] [address] [address] [address] Norbert Polk CO2 [Moles/Vol] 24.6 mmol/L Normal 21.0-32.0 [facility] Comment on above: Performed By: #### C MP, CMADM, BNP #### [facility] [address] [address] [address] Norbert Polk Creatinine [Mass/Vol] 2.40 mg/dL Critically high 0.70-1.30 [facility] Comment on above: Performed By: #### C MP, CMADM, BNP #### [facility] [address] [address] [address] Norbert Polk EGFR-AF BURUNDIAN 31 mL/min/1.73m2 Critically low >=60 [facility] Comment on above: Performed By: #### C MP, CMADM, BNP #### [facility] [address] [address] [address] Norbert Polk EGFR-NON AF BURUNDIAN 26 mL/min/1.73m2 Critically low >=60 [facility] Comment on above: Performed By: #### C MP, CMADM, BNP #### [facility] [address] [address] [address] Norbert Polk Globulin (S) [Mass/Vol] 4.5 g/dL Normal [facility] Comment on above: Performed By: #### C MP, CMADM, BNP #### [facility] [address] [address] [address] Norbert Polk Glucose [Mass/Vol] 174 mg/dL Critically high 74-106 [facility] Comment on above: Performed By: #### C MP, CMADM, BNP #### [facility] [address] [address] [address] Norbert Polk Potassium [Moles/Vol] 4.9 mmol/L Normal 3.5-5.1 [facility] Comment on above: Performed By: #### C MP, CMADM, BNP #### [facility] [address] [address] [address] Norbert Polk Protein [Mass/Vol] 7.5 g/dL Normal 6.4-8.2 [facility] Comment on above: Performed By: #### C MINISTERIO HILL, BNP #### [facility] [address] [place] [address] Dr. Norbert Polk Sodium [Moles/Vol] 141 mmol/L Normal 136-145 [facility] Comment on above: Performed By: #### C MINISTERIO HILL, BNP #### [facility] [address] [place] [address] Dr. Norbert Polk Urea nitrogen [Mass/Vol] 60.0 mg/dL Critically high 7.0-18.0 [facility] Comment on above: Performed By: #### C MINISTERIO HILL, BNP #### [facility] [address] [place] [address] Dr. Norbert Polk Urea nitrogen/Creatinine [Mass ratio] 25.0 mg/mg Normal [facility] Comment on above: Performed By: #### C MINISTERIO HILL, BNP #### [facility] [address] [place] [address] Dr. Norbert Polk PROTIMEon 01-09-2023 INR Coag (PPP) [Relative time] 1.02 {INR} Normal [facility] Comment on above: Performed By: #### P OCGLUC #### [facility] [address] [place] [address] Dr. Norbert Polk INR GUIDELINES SEE BELOW Normal [facility] Comment on above: Result Comment: BECKIE RED INR: 2.0 - 3.0 CONDITIONS NOT LISTED BELOW 2.5 - 3.5 FOR PROSTHETIC HEART VALVE REPLACEMENT 2.5 - 3.5 RECURRENT THROMBOSIS Performed By: #### P OCGLUC #### [facility] [address] [place] [address] Dr. Norbert Polk PT Coag (PPP) [Time] 10.8 s Normal 9.0-11.6 [facility] Comment on above: Performed By: #### P OCGLUC #### [facility] [address] [place] [address] Dr. Norbert Polk PTTon 01-09-2023 aPTT Coag (Bld) [Time] 25.2 s Normal 22.3-36.2 [facility] Comment on above: Performed By: #### P OCGLUC #### [facility] [address] [place] [address] Dr. Norbert Polk SPUTUM GRAM STAINon 01-10-20 COMMENTS NO ORGANISMS OBSERVED Normal [facility] Comment on above: Performed By: #### B FRAME MAKER, CMP #### [facility] [address] [place] [address] Dr. Norbert Polk DIPHTHEROIDS Normal [facility] Comment on above: Performed By: #### B FRAME MAKER, CMP #### [facility] [address] [place] [address] Dr. Norbert Polk EPITHELIALS <25 Normal [facility] Comment on above: Performed By: #### B FRAME MAKER, CMP #### [facility] [address] [place] [address] Dr. Norbert Polk FUNGAL ELEMENTS Normal [facility] Comment on above: Performed By: #### B FRAME MAKER, CMP #### [facility] [address] [place] [address] Dr. Norbert Polk GRAM NEG BACILLI Normal [facility] Comment on above: Performed By: #### B FRAME MAKER, CMP #### [facility] [address] [place] [address] Dr. Norbert SHAW NEG DIPPLOCOCCI Normal [facility] Comment on above: Performed By: #### B FRAME MAKER, CMP #### [facility] [address] [place] [address] Dr. Norbert Polk GRAM POS BACILLI Normal [facility] Comment on above: Performed By: #### B FRAME MAKER, CMP #### [facility] [address] [place] [address] Dr. Norbert Polk GRAM POSITIVE COCCI Normal [facility] Comment on above: Performed By: #### B FRAME MAKER, CMP #### [facility] [address] [place] [address] Dr. Norbert Polk WBC (Bld) [#/Vol] 10*3/uL [facility] Comment on above: Performed By: #### B FRAME MAKER, CMP #### [facility] [address] [address] [address] Norbert Polk XR CHEST 1 Von [...] by: KORI KERR Date: 2023-01-09 15:12 Normal [facility] CT CSPINE WO CONon 3 CT [...] by: JANET EDMONDSON Date: 2023-01-05 11:50 Normal [facility] CT STROKE HEAD WOon 01-06-20 23 [...] VALENTÍN ZIMMERMAN Date: 2023-01-05 11:51 Normal [facility] Office Visiton 01-01-2023 Follow-up visit [id number] Jose Ferreira 1940 M Date Provider Department Center 01/01/2023 Rod-ELYSE DENSON [facility] Family History Problem Relation Age of Onset Cancer Father Alcohol abuse Father Family Status - Relation Status Age at Father Level of Service:77963 CO OFFICE/OUTPATIENT ESTABLISHED [facility] 40-54 MIN Reason for Visit and Comments: Atrial Fibrillation [80] Coronary Artery Disease [187] Congestive Heart Failure [127] history of GI bleed [Other] Normal [facility] Coding Summary.on 12-23-2022 Coding Summary. CD:[id number] G h0bWw+PGhlYWQ+DX6WCZV xI03lfSMvyH8WJ5mIUA6U SYBKMHQYFW9PGT9eiEK8D OlyS5EhhxUi EuqruQOiNU69YWg9OQH4q OobBUbprZ4qoVRiF3h6Tk QbYB02bO65SQjfBJNuXoT 3LjZpbjsgbWFy A7oqTzDghKHvFze+PHRhY mxlIHdpZHRoPScxMDAlJy EpcLyzXI0tUl8ePRKnAIY vbGxhcHNlOiBj f7wbUTKbTIbpZE3qcZhpY 2VxtAE8JUBjd2x6Qc98aV I+EDPyVDB4bBigWLcxi75 1MyCar0ehDBX2 rIYuMKjvWBK9R66gd8S1K OWsAZNdPGF4zZJ2zU8ggE miylslV3DtbEXnRpR1HFL 0rJKnnG6fiInt fyjasO7nIlw+C18WKU5QS VTBRN2JUmw9P9YwYdxaiP I+IW47ZALcLU46kRGahVQ rs9tydTb8WtQf AUTnBCV9qNseBAoae7ZaQ MLyE26sfYHdd3V6RUGepY nvvXItKzZylMM3uV8nMVp chnjfd5smrrpx Dcfai8ufmv31mE10V67sY RqkONMnHRK5QFLwWQZkiX hfgn6duX2fTp7+LEykw2i wb8hhlOc4FmFo HYYmvaNvtDouILZ4p2PyX j49I7JstUffd4BgHzx4hg 82oTVtn5B2dAD4QRbhWML zgU4fNVqqCjZ6 QOOaUjAmcL05oPXpRGkoS j5frLkywBirFG6uFGZgug oxWQVgxN2bRTJduQMyvRk mLS4eXFVaqfta b233QfCvGFU2FGUsrAEtP 2JrqQ3nBmAbWASaXUInC2 XlgQUgPZuaZ730URfnJwN 4QUOutyGhD1Uh WLPnqNcsMyV9q8Y0Du3Ee 5NhepotHPD2CAegAQDmTm O2JpXsPeG3H7NyGkh2FLH zjSejOK7iH3We EASjfuhwqgbwuNU6KQHtT DLehE94wSNeMLupXx8ju3 R3h859ODVkQGThkF45Ax7 udDogMTBwdCBU lA3ujilfm8txclzpFcOtW ZQfWZm4RHh1BQFvlBdaDt WxVRK4WoM4IWB8wROlzU9 jcEeqvzrknX0u Oyc+E55ikY6wFNS4DST6b zqlVBAkcrIyWW94NE67F6 RyPjwvdGFibGU+PGRpdiB hyNzrEN0eJzBx x0nvo9LyKItgX8RlLQCkH ReuSdl0VAQcJKX0tJT7xQ 0kIXUhHPoxb9S4iWA7Y6Z cvyMtbs5et1db HTUeNZixZ78loJLql3P2Y AOvqII6PYMwbOytIeErqG 93Oyc+DYSvrEgss4DzSqr kt2gco3ylfFj4 ShKuAZCplzHgyWokKMJ2r 9RcGm02R56tXLrjLFFgND EgAVFvTQMubKagiw1xvV0 wIi8+PGNvbCB3 wQW8bD1pOPKrAxT5BFagL 156QjJqcHTuErafy2gym4 pdxXk4FeClNEVeoxMnkXg jOTH2g5TfLq43 W27dCDhbDSXuVYDaVBMlN CFtpLgxsu7oiR6dOd9+PC 6xv1jrxr41rG99sSJ+PHR fHDJ6hJodFHtr PLSkwH3aWZzfGtR2CDMiA gEhmB16mJOzBNlhFy4iyX xjqCrbDG2oVIIiorlvz98 4ZaJbx9wtQAGu mXNgLLolKYK7T45qh9D7F MFlJRQuUIP1oET8xL4qnJ lnbjogbGVmdDsgdmVydGl oHRsxJNtjM949 IHRvcDsnPlBhdGllbnQgT dYyKVi8C2RuSfj0MNCsrT fyQS9cgKAmPIgpLa7snCb mnYmnKJ5lDSWd vpspq406SuOtv1dsHCZkl IBoWLusPNZ8E72ww1L3AV DpIDIrTOJ5tPU7sN0goQq nbjogbGVmdDsg lfRwwZkzRFmsPVnaQ772Q HRvcDsnPkJpcnRoIERhdG J4GK19IS15kZKjr1G2nJA 2Q2CoCTMbwyhv pddtkLS9TLVrHPQloT86R y7koKdaQi2cKGBbQNR9KU UxePPzB0IxrF4wTwAoJBD fOQHxX7KxdBDo LPumE396ETitEeM4UEBjo zHqR7IiUFOpxNvtEgI2x3 T1My9UJ0A2OY39XE81sBX ub2Y2rUR2D4Yv RQQkbioosthwpXE5DLWoJ BLmsO85Ea7axHfpOb9aFX GxIMK4SJSroYLiH5RmyW6 yOiAjMDAwMDAw N5AskXNlKNdsQ664XRkiD jG5RTAmhtPrA4RlJRMvvS eqWxG3f8R0Tx2DXVn8WL7 0KL92fOQlm6A7 vTD5V3KiLBSomohyntsby QR7LHFhFLFsuE42Kx7mrT fbLt0nKAHpIDU5QYAauNL wM4FhoN8rXbRc UVRqEIHnB5UoyYRmJJxrB 300TArtXvJ5MDFffuXhP1 PkJCQabHntZbY6y0E4Hb3 VBIOvMU79TCM0 nOM2AA12ZK57R7FzBlvjy GFibGU+PHRhYmxlIHdpZH RoPScxMDAlJyBzdHlsZT0 yLg7tKMToDHMb wLthnPDpIwGap9yjTFTwG ZryJH3gnEcuO8JrvPD0ZX Rhr7q6Pz99E97mN3BasYW +RQKqoQV2yXP8 hR7aMmWhBzE8QAycC129Z fMjbPPsAttws8plp9wnxC k0MlZ0LFRdeuRjsPdeIEH 5e8ZzOz12Z50w IHdpZHRoPSIxNSUiIHZhb Pomjn6fiZ4vXy4+PGNvbC K5qET3sZ1fHiCsPdI4OPo fJ797MbKyhQMg Wybvh9ndd8uegNb3KvWtZ PBdhcTpyVteQFC6o4NlUu 98A9InrZvcp2BvDsr4ye3 3kNEnx0P5fUE0 C2SzFLNshaxeuPMcgBimB T9iCFJhbcpbWPKsqB3eMA SdZ6z7HcLaOxP1EPmsK7B vngQ6NBGbyXMb DChqHAZ2H78xc2M0KERyO CPjRMR8gJY0tQ4esSxeag ogbGVmdDsgdmVydGljYWw uSJxoB714OYRu rTqsXPKlaR2vPHAyjKRhn KclNM3sBZQggkadMuADNj XHICImWGmSE8SZLQQNEB6 1DV85bFAgp1G9 yVN5G5SwUWIpqutpafpmu OI5SHUdYEJvnZ15sTTcCA qaUg5xs4T5c864FYZwMFO cuS51Ra2xwNkl MRZjoPIMhB7ztkeyq1rhn bbqSfSjRSIaJHb2EYr4VZ JgdPsrYhGhGHJ0XpL6UFT 2vYEtrP5yoBmx dhvweA4oJdq+MDcvMDQvM TkzODwvdGQ+AAAbDTC4nG yaLNwfDGMvfL2lXOKzE8t 3EyLnPdF8UNqe F0AgCMLtsvksSy47jN3aR vAgOfT1UEmpO9VszvB7LV WphBWaPOdbIRA9X63gw9V 0BVVxQYItYMW9 qUV9yO8mwYgmnwrjgBAma DsgdmVydGljYWwtYWxpZ2 89BYCavZwwTdq2ZEvoLWX uGE25BE33gIKb k3Q3dFM5W4AsKWHfpcsrd lptwOD7SZOlUMZniW20zX RbXGvaPy9no6Q4t530MSV dRZKxsX81Vc2z wQolUBNpsEJYbQ8nbpqig 7zgfeabEyByODDcZCa3RM y8TWBkkXyeDzBkXUU2OpY 8TYO7vVEydB1o nOaaiarsjL3aKso+TWFsZ TwvdGQ+ERDxCAZ7vCmpXE snISOcjU8dUCCuM9h6VyO nVpZ4JJuhV8Uc PEHlfojxPe89cA5gKuHzZ iC2GCpuJ8NtusA4UBYczU BvBNifEZM5Q47oz4O3YTA lOCJcYBZ5dWI6 lA5pbUtvcftimBTlnMhex dUhxMaaRApdFDohG193IF LjtXhnScvcLsTNdx5cUD8 mZjwvdGQ+PC90 ak34C2RwRogwXqw6JPSdB LY4jPV8hK7uFIOgAMqap8 P9oOX2J9UkouPcbq9cr9v cOZFdVExhN30p sFHlb5M5ETRkvEF0JSJyj NvzOvIlgX62Bou+PGNvbG ngn0SpSjgva1dbk2wbbUo 9IjMwJSIgdmFs hDwvEHL0s6QdMf00S18sW HdpZHRoPSIzMCUiIHZhbG vcnm7hrV2pHf0+PGNvbCB 5fCP6iE0iKuPw HeH5GOlzM952WqNmiRBlH jben7dmy7lrdRs9WvGsBD MpsfUidPmqLRB2y5MaCi0 8Q7UshRiso5Iv Jex6hb60cIZwn7J4bIH5P 3BhZGRpbmctbGVmdDogMC 3oBWVwkmdhSYIudO6qRHO pV4c7HmMzRgX9 YUrbJ3MlvjN0EOUxmWQmJ NKeaLMXcG1wbjzdh7xgul uhGjXhJLGeHFf1JJr4MSY saWduOiBsZWZ0 YlP3HCM1bFHqbV7jyKdqu tczkX3pZhc+JIt2q9hciQ VhQB5rbXY2OE85VC28sCN ko2P3yZJ2G4Ub SKRzhclnnhgwyJJ3JPMgS XHavJ75Ef8smEvkAp7vAP KzWYR4GZGjlQIaT5HahI1 yOiAjMDAwMDAw G4JflECrQJshA952JTdrY aZ3IBYjnmRvZ8HnHRQaaK koZdU5x1S0Zu4BYX99WM1 6QV88mPJdp8J3 kIZ1D0MjNINdkyrwilqot YZ5UMMuDFNcqQ78Vc9fyQ qsRp1qHYOeYSF5SALpqOJ iK0AcaY6cBmXf KAAmVKCaC6RrvLZrYIjoW 568OIgcDfB9QIUcfzXhT0 FgAGLmaSdcDfT2x9D8Dv7 UDf74OW85AQ43 gAPja0Y8cPK4Z2PwTPXbn cxpmnccaNO2WGEkWQJpmR 08Hc9xvVkvEp5nBLUdNUV 7DDIqgVPgW5Tq yA9sCxDjYNHrPPBhO1Ejk KWzPWcvG288QMzyGaH5AA VntuSqH2IcCOIeaPfsBhK 6i9W4Dd4IXLom yth7S0LiZesrfKX+PC90Y KFkVJ21cHZurMUtg7gnmX q0ApTnWOSlUCS0fYshWBz hj2BzLAGtH51q bGFw (more content not included)... Normal [facility] Living Will/POAon 12-19-2022 Living Will/POA [id number] Normal [facility] Ambulatory Visit Summaryon 0 12-18-2022 Ambulatory [...] ([place]) fluticasone nasal (fluticasone 0.05 mg/inh Nasal [place]) furosemide (furosemide 20 mg Tab) gabapentin (gabapentin [...] Ozzy CONTEH MD Where: [facility] [place] Normal [facility] CHEMISTRYOrdered By: SYSTEM SYSTEM on 12-18-2022 Prostate specific Ag [Mass/Vol] 0.5 ng/mL Normal 0.1 - 3.5 ng/mL [facility] [place] PSA Totalon 12-18-2022 Prostate specific Ag [Mass/Vol] 0.5 ng/mL Normal 0.1-3.5 [facility] Comment on above: Result Comment: The concentration of PSA determined by different manufacturers can vary due to differences in assay methods and reagent specificity. Values obtained from different assay methods cannot be used interchangeably. The methodology used for this result was chemiluminescence using [employer] Access [employer] PSA reagent. Performed By: #### 1 [id number] ####[facility] [address] [place] [address] Patient Educationon 12-18-19 23 Patient Education Urology [...] Rhubarb. ? Beets. ? Potato chips and urdu fries. ? Nuts. ? If you regularly take a diuretic medicine, make sure to eat at least 1?2 fruits or vegetables high in potassium each day. These include: ? Avocado. ? Banana. ? Butts, prune, carrot, or tomato juice. ? Baked [...] Baudilio hussein (more content not included)... Normal [facility] Urology Office/Clinic Noteon 12-18-2022 Urology Office/Clinic [...] today, pt has an indwelling catheter. Using [facility] based in [place]. 3. Kidney stone (N20.0: Calculus of kidney) Pt states that he passed a stone into his dalton bag about a year ago but has had no issues since. Follow-up With When Contact Information YADY SALCIDO, Ozzy Velasquez, URL [facility] [address], [place] [address]- Additional Instructions: 6 mos with PSA Patient Education Dietary Guidelines to Help Prevent Kidney Stones I, Kelsey Shirlye, personally scribed for Dr. Conteh on 12/18/2022 [...] 50 mg Tab fluticasone 0.05 mg/inh Nasal [place], Nasal, Daily furosemide 20 mg Tab, 40 [...] Results Te (more content not included)... Normal [facility] Comment on above: Result Comment: Elec tronically Signed By: YADY SALCIDO, Ozzy Rubi.br\Date and Time Signed: 12/18/22 13:42 EST\.br\Electronically Co-Signed By: Kelsey Shirley\.br\Date and Time Co-Signed: 12/18/22 13:41 EST CULTURE SPUTUMon 12-05-2022 CULTURE SPUTUM Isolate 1 Lida albicans Light growth of Normal [facility] Comment on above: Performed By: #### B FRAME MAKER, CMP #### [facility] [address] [address] [address] Norbert Polk SPUTUM GRAM STAINon 12-05-19 COMMENTS Normal [facility] Comment on above: Performed By: #### B FRAME MAKER, CMP #### [facility] [address] [place] [address] Dr. Norbert Polk DIPHTHEROIDS [facility] Comment on above: Performed By: #### B FRAME MAKER, CMP #### [facility] [address] [place] [address] Dr. Norbert Polk EPITHELIALS >25 Normal [facility] Comment on above: Performed By: #### B FRAME MAKER, CMP #### [facility] [address] [address] [address] Norbert Polk FUNGAL ELEMENTS Normal [facility] Comment on above: Performed By: #### B FRAME MAKER, CMP #### [facility] [address] [address] [address] Norbert SHAW NEG BACILLI [facility] Comment on above: Performed By: #### B FRAME MAKER, CMP #### [facility] [address] [address] [address] Norbert SHAW NEG DIPPLOCOCCI Normal [facility] Comment on above: Performed By: #### B FRAME MAKER, CMP #### [facility] [address] [address] [address] Norbert SHAW POS BACILLI FEW [facility] Comment on above: Performed By: #### B FRAME MAKER, CMP #### [facility] [address] [address] [address] Norbert Polk GRAM POSITIVE COCCI FEW Normal [facility] Comment on above: Performed By: #### B FRAME MAKER, CMP #### [facility] [address] [place] [address] Dr. Norbert Polk WBC (Bld) [#/Vol] 10*3/uL Normal [facility] Comment on above: Performed By: #### B FRAME MAKER, CMP #### [facility] [address] [place] [address] Dr. Norbert Polk CULTURE URINEon 12-03-2022 CULTURE [...] R F Nitrofurantoin <=16 S F Normal [facility] Comment on above: Performed By: #### B FRAME MAKER, CMP #### [facility] [address] [place] [address] Dr. Norbert Polk BNPon 11-30-2022 Natriuretic peptide B (Bld) [Mass/Vol] 1921.0 pg/mL Critically high <=1,800.0 [facility] Comment on above: Performed By: #### B FRAME MAKER, CMP #### [facility] [address] [place] [address] Dr. Norbert Polk CBC AUTO DIFFon 11-30-2022 BASO # 0.1 103/ul Normal 0.0-0.1 [facility] Comment on above: Performed By: #### C MP, CMADM, BNP #### [facility] [address] [place] [address] Dr. Norbert Polk Basophils/100 WBC (Bld) 0.5 % Normal 0.2-2.0 [facility] Comment on above: Performed By: #### C MP, CMADM, BNP #### [facility] [address] [place] [address] Dr. Norbert Polk EO # 0.9 103/ul Critically high 0.0-0.7 [facility] Comment on above: Performed By: #### C MP, CMADM, BNP #### [facility] [address] [place] [address] Dr. Norbert Polk Eosinophils/100 WBC (Bld) 8.9 % Critically high 0.9-7.0 [facility] Comment on above: Performed By: #### C MP, CMADM, BNP #### [facility] [address] [place] [address] Dr. Norbert Polk Erythrocyte distribution width (RBC) [Ratio] 14.6 % Normal 11.0-15.0 [facility] Comment on above: Performed By: #### C MP, CMADM, BNP #### [facility] [address] [place] [address] Dr. Norbert Polk Hematocrit (Bld) [Volume fraction] 29.8 % Critically low 42.0-54.0 [facility] Comment on above: Performed By: #### C MP, CMADM, BNP #### [facility] [address] [place] [address] Dr. Norbert Polk Hemoglobin (Bld) [Mass/Vol] 9.5 g/dL Critically low 14.0-18.0 [facility] Comment on above: Performed By: #### C MP, CMADM, BNP #### [facility] [address] [address] [address] Norbert Polk IG # 0.04 10e3/ul Critically high 0.00-0.03 [facility] Comment on above: Performed By: #### C MP, CMADM, BNP #### [facility] [address] [address] [address] Norbert Polk IG % 0.4 % Normal 0.0-0.5 [facility] Comment on above: Performed By: #### C MP, CMADM, BNP #### [facility] [address] [place] [address] Dr. Norbert Polk LYMPH # 3.1 103/ul Normal 1.2-3.8 [facility] Comment on above: Performed By: #### C MP, CMADM, BNP #### [facility] [address] [place] [address] Dr. Norbert Polk Lymphocytes/100 WBC (Bld) 30.9 % Normal 20.5-60.0 [facility] Comment on above: Performed By: #### C MP, CMADM, BNP #### [facility] [address] [place] [address] Dr. Norbert Polk MANUAL DIFF REQ NO Normal [facility] Comment on above: Performed By: #### C MP, CMADM, BNP #### [facility] [address] [place] [address] Dr. Norbert Polk MCH (RBC) [Entitic mass] 30.8 pg Normal 25.9-34.0 [facility] Comment on above: Performed By: #### C MP, CMADM, BNP #### [facility] [address] [place] [address] Dr. Norbert Polk MCHC (RBC) [Mass/Vol] 31.9 g/dL Normal 29.9-35.2 [facility] Comment on above: Performed By: #### C MP, CMADM, BNP #### [facility] [address] [place] [address] Dr. Norbert Polk MCV (RBC) [Entitic vol] 96.8 fL Critically high 80.0-94.0 [facility] Comment on above: Performed By: #### C MP, CMADM, BNP #### [facility] [address] [place] [address] Dr. Norbert Polk MONO # 0.7 103/ul Normal 0.3-0.8 [facility] Comment on above: Performed By: #### C MP, CMADM, BNP #### [facility] [address] [place] [address] Dr. Norbert Polk Monocytes/100 WBC (Bld) 7.1 % Normal 1.7-12.0 [facility] Comment on above: Performed By: #### C MP, CMADM, BNP #### [facility] [address] [place] [address] Dr. Norbert Polk NEUT # 5.3 103/ul Normal 1.4-6.5 [facility] Comment on above: Performed By: #### C MP, CMADM, BNP #### [facility] [address] [place] [address] Dr. Norbert Polk Neutrophils/100 WBC (Bld) 52.2 % Normal 43.0-75.0 [facility] Comment on above: Performed By: #### C MP, CMADM, BNP #### [facility] [address] [place] [address] Dr. Norbert Polk Platelet mean volume (Bld) [Entitic vol] 10.0 fL Normal 9.5-13.5 [facility] Comment on above: Performed By: #### C MP, CMADM, BNP #### [facility] [address] [place] [address] Dr. Norbert Polk PLT 195 103/ul Normal 150-450 [facility] Comment on above: Performed By: #### C MP, CMADM, BNP #### [facility] [address] [place] [address] Dr. Norbert Polk RBC 3.08 106/ul Critically low 4.70-6.10 [facility] Comment on above: Performed By: #### C MP, CMADM, BNP #### [facility] [address] [place], [place] [address] Dr. Norbert Polk WBC 10.1 103/ul Normal 4.0-11.0 [facility] Comment on above: Performed By: #### C MP, CMADM, BNP #### [facility] [address], [place] [address] Dr. Norbert Polk ECHOCARDIO M/2D COMPLETEon 0 11-30-2022 ECHOCARDIO M/2D COMPLETE Patient: JOSE FERREIRA Exam Date: 11/30/2022 : 1940 Gender:M Ordering : DR FARZAD DODSON . Admission #: [id number] Family : DR DES MCALLISTER M.D. Order #: [id number] CLICK HERE TO VIEW EXAM ECHOCARDIOGRAM REPORT [...] M.D. on 11/30/2022 at 19:32 Normal [facility] INFLUENZA A AND B AGon 11-30 INFLUANEGH SEE BELOW Normal [facility] Comment on above: Result Comment: Nega tive for Flu A protein angiten. Infection due to Flu A cannot be ruled out. Flu A angiten in the sample may be below the detection limit of the test. Performed By: #### C MP, CMADM, BNP #### [facility] [address] [place] [address] Dr. Norbert Polk [facility] SEE BELOW Normal [facility] Comment on above: Result Comment: Nega tive for Flu B protein antigen. Infection due to Flu B cannot be ruled out. Flu B antigen in the sample may be below the detection limit of the test. Performed By: #### C LIZ CMADM, BNP #### [facility] [address] [place] [address] Dr. Norbert Polk INFLUENZA A AG Negative Normal NEGATIVE SEE COMMENT [facility] Comment on above: Performed By: #### C LIZ CMADM, BNP #### [facility] [address] [place] [address] Dr. Norbert Polk INFLUENZA B AG Negative Normal NEGATIVE SEE COMMENT [facility] Comment on above: Performed By: #### C MINISTERIO HILL, BNP #### [facility] [address] [place] [address] Dr. Norbert Polk POINT OF CARE GLUCOSEon Glucose [Mass/Vol] 325 mg/dL Critically high 74-106 [facility] Comment on above: Performed By: #### P OCGLUC #### [facility] [address] [place] [address] Dr. Norbert Polk Glucose [Mass/Vol] 236 mg/dL Critically high 74-106 [facility] Comment on above: Performed By: #### P OCGLUC #### [facility] [address] [place] [address] Dr. Norbert Polk PROF 14(COMP METB)on 023 Albumin [Mass/Vol] 2.9 g/dL Critically low 3.4-5.0 [facility] Comment on above: Performed By: #### B FRAME MAKER, CMP #### [facility] [address] [place] [address] Dr. Norbert Polk Albumin/Globulin [Mass ratio] 0.9 {ratio} Normal [facility] Comment on above: Performed By: #### B FRAME MAKER, CMP #### [facility] [address] [place] [address] Dr. Norbert Polk ALP [Catalytic activity/Vol] 51 U/L Normal 46-116 [facility] Comment on above: Performed By: #### B FRAME MAKER, CMP #### [facility] [address] [place] [address] [address] Norbert Polk ALT [Catalytic activity/Vol] 14 U/L Critically low 16-63 [facility] Comment on above: Performed By: #### B FRAME MAKER, CMP #### [facility] [address] [address] [address] Norbert Polk Anion gap [Moles/Vol] 12.7 mmol/L Normal [facility] Comment on above: Performed By: #### B FRAME MAKER, CMP #### [facility] [address] [address] [address] Norbert Polk AST [Catalytic activity/Vol] 14 U/L Critically low 15-37 [facility] Comment on above: Performed By: #### B FRAME MAKER, CMP #### [facility] [address] [address] [address] Norbert Polk Bilirubin [Mass/Vol] 0.1 mg/dL Critically low 0.2-1.0 [facility] Comment on above: Performed By: #### B FRAME MAKER, CMP #### [facility] [address] [address] [address] Norbert Polk Calcium [Mass/Vol] 9.3 mg/dL Normal 8.5-10.1 [facility] Comment on above: Performed By: #### B FRAME MAKER, CMP #### [facility] [address] [address] [address] Norbert Polk Chloride [Moles/Vol] 106 mmol/L Normal 98-107 [facility] Comment on above: Performed By: #### B FRAME MAKER, CMP #### [facility] [address] [address] [address] Norbert Polk CO2 [Moles/Vol] 26.2 mmol/L Normal 21.0-32.0 [facility] Comment on above: Performed By: #### B FRAME MAKER, CMP #### [facility] [address] [address] [address] Norbert Polk Creatinine [Mass/Vol] 2.16 mg/dL Critically high 0.70-1.30 [facility] Comment on above: Performed By: #### B FRAME MAKER, CMP #### [facility] [address] [address] [address] Norbert Polk EGFR-AF BURUNDIAN 35 mL/min/1.73m2 Critically low >=60 [facility] Comment on above: Performed By: #### B FRAME MAKER, CMP #### [facility] [address] [address] [address] Norbert Polk EGFR-NON AF BURUNDIAN 29 mL/min/1.73m2 Critically low >=60 [facility] Comment on above: Performed By: #### B FRAME MAKER, CMP #### [facility] [address] [place] [address] Dr. Norbert Polk Globulin (S) [Mass/Vol] 3.4 g/dL Normal [facility] Comment on above: Performed By: #### B FRAME MAKER, CMP #### [facility] [address] [place] [address] Dr. Norbert Polk Glucose [Mass/Vol] 185 mg/dL Critically high 74-106 [facility] Comment on above: Performed By: #### B FRAME MAKER, CMP #### [facility] [address] [place] [address] Dr. Norbert Polk Potassium [Moles/Vol] 4.9 mmol/L Normal 3.5-5.1 [facility] Comment on above: Performed By: #### B FRAME MAKER, CMP #### [facility] [address] [place] [address] Dr. Norbert Polk Protein [Mass/Vol] 6.3 g/dL Critically low 6.4-8.2 [facility] Comment on above: Performed By: #### B FRAME MAKER, CMP #### [facility] [address] [place] [address] Dr. Norbert Polk Sodium [Moles/Vol] 140 mmol/L Normal 136-145 [facility] Comment on above: Performed By: #### B FRAME MAKER, CMP #### [facility] [address] [place] [address] Dr. Norbert Polk Urea nitrogen [Mass/Vol] 53.0 mg/dL Critically high 7.0-18.0 [facility] Comment on above: Performed By: #### B FRAME MAKER, CMP #### [facility] [address] [place] [address] Dr. Norbert Polk Urea nitrogen/Creatinine [Mass ratio] 24.5 mg/mg Normal [facility] Comment on above: Performed By: #### B FRAME MAKER, CMP #### [facility] [address] [place] [address] Dr. Norbert Polk BNPon 11-29-2022 Natriuretic peptide B (Bld) [Mass/Vol] 2119.0 pg/mL Critically high <=1,800.0 [facility] Comment on above: Performed By: #### C MP, CMADM, BNP #### [facility] [address] [place] [address] Dr. Norbert Polk CARDIAC JENNA 3-6on 3 CK [Catalytic activity/Vol] 54 U/L Normal 39-308 [facility] Comment on above: Performed By: #### C MP, CMADM, BNP #### [facility] [address] [place] [address] Dr. Norbert Polk CK.MB [Mass/Vol] 3.42 ng/mL Normal <=3.60 [facility] Comment on above: Performed By: #### C MP, CMADM, BNP #### [facility] [address] [place] [address] Dr. Norbert Polk HSTROP 11.0 pg/mL Normal 4.0-76.1 [facility] Comment on above: Result Comment: CUT- OFF POINTS HAVE BEEN ESTABLISHED BASED ON THE FOURTH UNIVERSAL DEFINITIONS OF MYOCARDIAL INFARCTION. THE UPPER REFERENCE LIMIT (URL) OF TROPONIN, DEFINED THE 99TH PERCENTILE OF cTnI DISTRIBUTION IN A REFERENCE POPULATION, HAS BEEN CONFIRMED THE DECISION THRESHOLD FOR CO DIAGNOSIS. Performed By: #### C MP, CMADM, BNP #### [facility] [address] [place] [address] Dr. Norbert Polk CK [Catalytic activity/Vol] 59 U/L Normal 39-308 [facility] Comment on above: Performed By: #### C MREP #### [facility] [address] [place] [address] Dr. Norbert Polk CK.MB [Mass/Vol] 4.64 ng/mL Critically high <=3.60 [facility] Comment on above: Performed By: #### C MREP #### [facility] [address] [place] [address] Dr. Norbert Polk HSTROP 11.5 pg/mL Normal 4.0-76.1 [facility] Comment on above: Result Comment: CUT- OFF POINTS HAVE BEEN ESTABLISHED BASED ON THE FOURTH UNIVERSAL DEFINITIONS OF MYOCARDIAL INFARCTION. THE UPPER REFERENCE LIMIT (URL) OF TROPONIN, DEFINED THE 99TH PERCENTILE OF cTnI DISTRIBUTION IN A REFERENCE POPULATION, HAS BEEN CONFIRMED THE DECISION THRESHOLD FOR CO DIAGNOSIS. Performed By: #### C MREP #### [facility] [address] [place] [address] Dr. Norbert Polk CBC AUTO DIFFon 11-29-2022 BASO # 0.1 103/ul Normal 0.0-0.1 [facility] Comment on above: Performed By: #### B FRAME MAKER, CMP #### [facility] [address] [place] [address] Dr. Norbert Polk Basophils/100 WBC (Bld) 0.8 % Normal 0.2-2.0 [facility] Comment on above: Performed By: #### B FRAME MAKER, CMP #### [facility] [address] [place] [address] Dr. Norbert Polk EO # 1.4 103/ul Critically high 0.0-0.7 [facility] Comment on above: Performed By: #### B FRAME MAKER, CMP #### [facility] [address] [place] [address] Dr. Norbert Polk Eosinophils/100 WBC (Bld) 13.6 % Critically high 0.9-7.0 [facility] Comment on above: Performed By: #### B FRAME MAKER, CMP #### [facility] [address] [place] [address] Dr. Norbert Polk Erythrocyte distribution width (RBC) [Ratio] 14.6 % Normal 11.0-15.0 [facility] Comment on above: Performed By: #### B FRAME MAKER, CMP #### [facility] [address] [place] [address] Dr. Norbert Polk Hematocrit (Bld) [Volume fraction] 34.3 % Critically low 42.0-54.0 [facility] Comment on above: Performed By: #### B FRAME MAKER, CMP #### [facility] [address] [place] [address] Dr. Norbert Polk Hemoglobin (Bld) [Mass/Vol] 10.9 g/dL Critically low 14.0-18.0 [facility] Comment on above: Performed By: #### B FRAME MAKER, CMP #### [facility] [address] [place] [address] Dr. Norbert Polk IG # 0.05 10e3/ul Critically high 0.00-0.03 [facility] Comment on above: Performed By: #### B FRAME MAKER, CMP #### [facility] [address] [place] [address] Dr. Norbert Polk IG % 0.5 % Normal 0.0-0.5 [facility] Comment on above: Performed By: #### B FRAME MAKER, CMP #### [facility] [address] [place] [address] Dr. Norbert Polk LYMPH # 3.1 103/ul Normal 1.2-3.8 [facility] Comment on above: Performed By: #### B FRAME MAKER, CMP #### [facility] [address] [place] [address] Dr. Norbert Polk Lymphocytes/100 WBC (Bld) 29.9 % Normal 20.5-60.0 [facility] Comment on above: Performed By: #### B FRAME MAKER, CMP #### [facility] [address] [place] [address] Dr. Norbert Polk MANUAL DIFF REQ NO Normal [facility] Comment on above: Performed By: #### B FRAME MAKER, CMP #### [facility] [address] [place] [address] Dr. Norbert Polk MCH (RBC) [Entitic mass] 31.1 pg Normal 25.9-34.0 [facility] Comment on above: Performed By: #### B FRAME MAKER, CMP #### [facility] [address] [place] [address] Dr. Norbert Polk MCHC (RBC) [Mass/Vol] 31.8 g/dL Normal 29.9-35.2 [facility] Comment on above: Performed By: #### B FRAME MAKER, CMP #### [facility] [address] [place] [address] Dr. Norbert Polk MCV (RBC) [Entitic vol] 97.7 fL Critically high 80.0-94.0 [facility] Comment on above: Performed By: #### B FRAME MAKER, CMP #### [facility] [address] [place] [address] Dr. Norbert Polk MONO # 0.7 103/ul Normal 0.3-0.8 [facility] Comment on above: Performed By: #### B FRAME MAKER, CMP #### [facility] [address] [place] [address] Dr. Norbert Polk Monocytes/100 WBC (Bld) 6.3 % Normal 1.7-12.0 [facility] Comment on above: Performed By: #### B FRAME MAKER, CMP #### [facility] [address] [place] [address] Dr. Norbert Plok NEUT # 5.0 103/ul Normal 1.4-6.5 [facility] Comment on above: Performed By: #### B FRAME MAKER, CMP #### [facility] [address] [place] [address] Dr. Norbert Polk Neutrophils/100 WBC (Bld) 48.9 % Normal 43.0-75.0 [facility] Comment on above: Performed By: #### B FRAME MAKER, CMP #### [facility] [address] [place] [address] Dr. Norbert Polk Platelet mean volume (Bld) [Entitic vol] 10.1 fL Normal 9.5-13.5 [facility] Comment on above: Performed By: #### B FRAME MAKER, CMP #### [facility] [address] [place] [address] Dr. Norbert Polk PLT 218 103/ul Normal 150-450 [facility] Comment on above: Performed By: #### B FRAME MAKER, CMP #### [facility] [address] [place] [address] Dr. Norbert Polk RBC 3.51 106/ul Critically low 4.70-6.10 [facility] Comment on above: Performed By: #### B FRAME MAKER, CMP #### [facility] [address] [place] [address] Dr. Norbert Polk WBC 10.3 103/ul Normal 4.0-11.0 [facility] Comment on above: Performed By: #### B FRAME MAKER, CMP #### [facility] [address] [place] [address] Dr. Norbert Polk CULTURE BLOODon 11-29-2022 Microscopic examination of blood, culture Culture Observations: NO GROWTH AT 5 DAYS. Normal [facility] Comment on above: Performed By: #### B [id number] #### [facility] [address] [place] [address] Dr. Norbert Polk Microscopic examination of blood, culture Culture Observations: NO GROWTH AT 5 DAYS. Normal [facility] Comment on above: Performed By: #### B LDCX2 #### [facility] [address] [place] [address] Dr. Norbert Polk Covid-19 PCR (CVDTB)on SARS-CoV-2 (COVID-19) RNA KAYLIN+probe Ql (Unsp spec) Not detected Normal NOT DETECTED [facility] Comment on above: Result Comment: When [...] for this test is supported by the [place] of [employer] and [employer] Service's declaration that [...] By: #### C MP, CMADM, BNP #### [facility] [address] [place] [address] Dr. Norbert Polk ER URINE PROFILEon 3 Bilirubin Ql (U) Negative Normal NEGATIVE [facility] Comment on above: Performed By: #### B FRAME MAKER, CMP #### [facility] [address] [place] [address] Dr. Norbert Polk Clarity (U) CLEAR Normal CLEAR [facility] Comment on above: Performed By: #### B FRAME MAKER, CMP #### [facility] [address] [place] [address] Dr. Norbert Polk Color (U) LT. YELLOW Normal YELLOW [facility] Comment on above: Performed By: #### B FRAME MAKER, CMP #### [facility] [address] [place] [address] Dr. Norbert Polk ERUAHD A micrscopic examination will be performed if indicated. Normal [facility] Comment on above: Performed By: #### B FRAME MAKER, CMP #### [facility] [address] [place] [address] Dr. Norbert Polk Glucose Ql (U) Negative Normal NEGATIVE [facility] Comment on above: Performed By: #### B FRAME MAKER, CMP #### [facility] [address] [place] [address] Dr. Norbert Polk Hemoglobin Ql (U) Negative Normal NEGATIVE [facility] Comment on above: Performed By: #### B FRAME MAKER, CMP #### [facility] [address] [place] [address] Dr. Norbert Polk Ketones Ql (U) Negative Normal NEGATIVE [facility] Comment on above: Performed By: #### B FRAME MAKER, CMP #### [facility] [address] [place] [address] Dr. Norbert Polk LEUKOCYTES SMALL Abnormal NEGATIVE [facility] Comment on above: Performed By: #### B FRAME MAKER, CMP #### [facility] [address] [place] [address] Dr. Norbert Polk Nitrite Ql (U) Negative Normal NEGATIVE [facility] Comment on above: Performed By: #### B FRAME MAKER, CMP #### [facility] [address] [place] [address] Dr. Norbert Polk pH (U) 7.0 [pH] Normal 5-9 [facility] Comment on above: Performed By: #### B FRAME MAKER, CMP #### [facility] [address] [place] [address] Dr. Norbert Polk SPEC GRAVITY <=1.005 Abnormal 1.005-<=1.025 [facility] Comment on above: Performed By: #### B FRAME MAKER, CMP #### [facility] [address] [place] [address] Dr. Norbert Polk UA PROTEIN Negative Normal NEGATIVE/ TRACE [facility] Comment on above: Performed By: #### B FRAME MAKER, CMP #### [facility] [address] [place] [address] Dr. Norbert Polk UR MICRO IND INDICATED Normal [facility] Comment on above: Performed By: #### B FRAME MAKER, CMP #### [facility] [address] [place] [address] Dr. Norbert Polk Urobilinogen Qn (U) 0.2 {Karan'U}/dL Normal 0.2 - 1. 0 [facility] Comment on above: Performed By: #### B FRAME MAKER, CMP #### [facility] [address] [place] [address] Dr. Norbert Polk LACTATE/LACTIC ACIDon 2022 Lactate [Moles/Vol] 2.5 mmol/L Critically high 0.4-1.9 [facility] Comment on above: Performed By: #### P OCGLUC #### [facility] [address] [place] [address] Dr. Norbert Polk Lactate [Moles/Vol] 2.5 mmol/L Critically high 0.4-1.9 [facility] Comment on above: Performed By: #### C MP, CMADM, BNP #### [facility] [address] [place] [address] Dr. Norbert Polk POINT OF CARE GLUCOSEon Glucose [Mass/Vol] 113 mg/dL Critically high 74-106 [facility] Comment on above: Performed By: #### C MP, CMADM, BNP #### [facility] [address] [place] [address] [address] Norbert Polk PROF 14(COMP METB)on 023 Albumin [Mass/Vol] 3.3 g/dL Critically low 3.4-5.[address] [facility] Comment on above: Performed By: #### C MP, CMADM, BNP #### [facility] [address] [place] [address] Dr. Norbert Polk Albumin/Globulin [Mass ratio] 0.9 {ratio} Normal [facility] Comment on above: Performed By: #### C MP, CMADM, BNP #### [facility] [address] [place] [address] Dr. Norbert Polk ALP [Catalytic activity/Vol] 54 U/L Normal 46-116 [facility] Comment on above: Performed By: #### C MP, CMADM, BNP #### [facility] [address] [place] [address] Dr. Norbert Polk ALT [Catalytic activity/Vol] 16 U/L Normal 16-63 [facility] Comment on above: Performed By: #### C MP, CMADM, BNP #### [facility] [address] [address] [address] Norbert Polk Anion gap [Moles/Vol] 13.7 mmol/L Normal [facility] Comment on above: Performed By: #### C MP, CMADM, BNP #### [facility] [address] [place] [address] Dr. Norbert Polk AST [Catalytic activity/Vol] 16 U/L Normal 15-37 [facility] Comment on above: Performed By: #### C MP, CMADM, BNP #### [facility] [address] [place] [address] Dr. Norbert Polk Bilirubin [Mass/Vol] 0.2 mg/dL Normal 0.2-1.0 [facility] Comment on above: Performed By: #### C MP, CMADM, BNP #### [facility] [address] [address] [address] Norbert Polk Calcium [Mass/Vol] 9.8 mg/dL Normal 8.5-10.1 [facility] Comment on above: Performed By: #### C MP, CMADM, BNP #### [facility] [address] [address] [address] Norbert Polk Chloride [Moles/Vol] 105 mmol/L Normal 98-107 [facility] Comment on above: Performed By: #### C MP, CMADM, BNP #### [facility] [address] [place] [address] Dr. Norbert Polk CO2 [Moles/Vol] 27.0 mmol/L Normal 21.0-32.0 [facility] Comment on above: Performed By: #### C MP, CMADM, BNP #### [facility] [address] [address] [address] Norbert Polk Creatinine [Mass/Vol] 2.08 mg/dL Critically high 0.70-1.30 [facility] Comment on above: Performed By: #### C MP, CMADM, BNP #### [facility] [address] [place] [address] Dr. Norbert Polk EGFR-AF BURUNDIAN 37 mL/min/1.73m2 Critically low >=60 [facility] Comment on above: Performed By: #### C MP, CMADM, BNP #### [facility] [address] [place] [address] Dr. Norbert Polk EGFR-NON AF BURUNDIAN 31 mL/min/1.73m2 Critically low >=60 [facility] Comment on above: Performed By: #### C MP, CMADM, BNP #### [facility] [address] [place] [address] Dr. Norbert Polk Globulin (S) [Mass/Vol] 3.7 g/dL Normal [facility] Comment on above: Performed By: #### C MP, CMADM, BNP #### [facility] [address] [address] [address] Norbert Polk Glucose [Mass/Vol] 136 mg/dL Critically high 74-106 [facility] Comment on above: Performed By: #### C MP, CMADM, BNP #### [facility] [address] [address] [address] Norbert Polk Potassium [Moles/Vol] 4.7 mmol/L Normal 3.5-5.1 [facility] Comment on above: Performed By: #### C MP, CMADM, BNP #### [facility] [address] [address] [address] Norbert Polk Protein [Mass/Vol] 7.0 g/dL Normal 6.4-8.2 [facility] Comment on above: Performed By: #### C MP, CMADM, BNP #### [facility] [address] [address] [address] Norbert Polk Sodium [Moles/Vol] 141 mmol/L Normal 136-145 [facility] Comment on above: Performed By: #### C MP, CMADM, BNP #### [facility] [address] [address] [address] Norbert Polk Urea nitrogen [Mass/Vol] 62.0 mg/dL Critically high 7.0-18.0 [facility] Comment on above: Performed By: #### C MP, CMADM, BNP #### [facility] [address] [place] [address] Dr. Norbert Polk Urea nitrogen/Creatinine [Mass ratio] 29.8 mg/mg Normal [facility] Comment on above: Performed By: #### C MP, CMADM, BNP #### [facility] [address] [place] [address] Dr. Norbert Polk TROPONIN, HIGH SENSITIVITYon 11-29-2022 HSTROP 10.9 pg/mL Normal 4.0-76.1 [facility] Comment on above: Result Comment: CUT- OFF POINTS HAVE BEEN ESTABLISHED BASED ON THE FOURTH UNIVERSAL DEFINITIONS OF MYOCARDIAL INFARCTION. THE UPPER REFERENCE LIMIT (URL) OF TROPONIN, DEFINED THE 99TH PERCENTILE OF cTnI DISTRIBUTION IN A REFERENCE POPULATION, HAS BEEN CONFIRMED THE DECISION THRESHOLD FOR CO DIAGNOSIS. Performed By: #### C MP, CMADM, BNP #### [facility] [address] [place] [address] Dr. Norbert Polk URINE MICROSCOPIC ONLYon BACTERIA NONE SEEN Normal NONE SEEN [facility] Comment on above: Performed By: #### B FRAME MAKER, CMP #### [facility] [address] [place] [address] Dr. Norbert Polk Bacteria identified Cx Nom (U) NOT INDICATED Normal [facility] Comment on above: Performed By: #### B FRAME MAKER, CMP #### [facility] [address] [place] [address] Dr. Norbert Polk CAST NONE SEEN Normal NONE SEEN [facility] Comment on above: Performed By: #### B FRAME MAKER, CMP #### [facility] [address] [place] [address] Dr. Norbert Polk Crystals LM Nom (Urine sed) NONE SEEN Normal NONE SEEN [facility] Comment on above: Performed By: #### B FRAME MAKER, CMP #### [facility] [address] [place] [address] Dr. Norbert Polk Epithelial cells LM Ql (Urine sed) NONE SEEN Normal NONE SEEN /RARE [facility] Comment on above: Performed By: #### B FRAME MAKER, CMP #### [facility] [address] [place] [address] Dr. Norbert Polk MUCOUS NONE SEEN Normal NONE SEEN [facility] Comment on above: Performed By: #### B FRAME MAKER, CMP #### [facility] [address] [place] [address] Dr. Norbert Polk RBC 0-2 Normal 0-2 [facility] Comment on above: Performed By: #### B FRAME MAKER, CMP #### [facility] [address] [place] [address] Dr. Norbert Polk WBC 0-2 Abnormal NONE SEEN [facility] Comment on above: Performed By: #### B FRAME MAKER, CMP #### [facility] [address] [place] [address] Dr. Norbert Polk XR CHEST 1 Von 11-29-2022 XR [...] INDIGO MONTANO Date: 2022-11-29 17:08 Normal [facility] BNPon 10-31-2022 Natriuretic peptide B (Bld) [Mass/Vol] 729.0 pg/mL Normal <=1,800.0 [facility] Comment on above: Performed By: #### P OCGLUC #### [facility] [address] [place] [address] Dr. Norbert Polk CBC AUTO DIFFon 10-31-2022 BASO # 0.1 103/ul Normal 0.0-0.1 [facility] Comment on above: Performed By: #### P OCGLUC #### [facility] [address] [place] [address] Dr. Norbert Polk Basophils/100 WBC (Bld) 0.8 % Normal 0.2-2.0 [facility] Comment on above: Performed By: #### P OCGLUC #### [facility] [address] [place] [address] Dr. Norbert Polk EO # 0.7 103/ul Normal 0.0-0.7 [facility] Comment on above: Performed By: #### P OCGLUC #### [facility] [address] [place] [address] Dr. Norbert Polk Eosinophils/100 WBC (Bld) 8.1 % Critically high 0.9-7.0 [facility] Comment on above: Performed By: #### P OCGLUC #### [facility] [address] [place] [address] Dr. Norbert Polk Erythrocyte distribution width (RBC) [Ratio] 14.7 % Normal 11.0-15.0 [facility] Comment on above: Performed By: #### P OCGLUC #### [facility] [address] [place] [address] Dr. Norbert Polk Hematocrit (Bld) [Volume fraction] 34.8 % Critically low 42.0-54.0 [facility] Comment on above: Performed By: #### P OCGLUC #### [facility] [address] [place] [address] Dr. Norbert Polk Hemoglobin (Bld) [Mass/Vol] 11.1 g/dL Critically low 14.0-18.0 [facility] Comment on above: Performed By: #### P OCGLUC #### [facility] [address] [place] [address] Dr. Norbert Polk IG # 0.03 10e3/ul Normal 0.00-0.03 [facility] Comment on above: Performed By: #### P OCGLUC #### [facility] [address] [place] [address] Dr. Norbert Polk IG % 0.3 % Normal 0.0-0.5 [facility] Comment on above: Performed By: #### P OCGLUC #### [facility] [address] [place] [address] Dr. Norbert Polk LYMPH # 3.4 103/ul Normal 1.2-3.8 [facility] Comment on above: Performed By: #### P OCGLUC #### [facility] [address] [place] [address] Dr. Norbert Polk Lymphocytes/100 WBC (Bld) 37.4 % Normal 20.5-60.0 [facility] Comment on above: Performed By: #### P OCGLUC #### [facility] [address] [place] [address] Dr. Norbert Polk MANUAL DIFF REQ NO Normal [facility] Comment on above: Performed By: #### P OCGLUC #### [facility] [address] [place] [address] Dr. Norbert Polk MCH (RBC) [Entitic mass] 30.1 pg Normal 25.9-34.0 [facility] Comment on above: Performed By: #### P OCGLUC #### [facility] [address] [place] [address] Dr. Norbert Polk MCHC (RBC) [Mass/Vol] 31.9 g/dL Normal 29.9-35.2 [facility] Comment on above: Performed By: #### P OCGLUC #### [facility] [address] [place] [address] Dr. Norbert Polk MCV (RBC) [Entitic vol] 94.3 fL Critically high 80.0-94.0 [facility] Comment on above: Performed By: #### P OCGLUC #### [facility] [address] [place] [address] Dr. Norbert Polk MONO # 0.6 103/ul Normal 0.3-0.8 [facility] Comment on above: Performed By: #### P OCGLUC #### [facility] [address] [place] [address] Dr. Norbert Polk Monocytes/100 WBC (Bld) 6.9 % Normal 1.7-12.0 [facility] Comment on above: Performed By: #### P OCGLUC #### [facility] [address] [place] [address] Dr. Norbert Polk NEUT # 4.3 103/ul Normal 1.4-6.5 [facility] Comment on above: Performed By: #### P OCGLUC #### [facility] [address] [place] [address] Dr. Norbert Polk Neutrophils/100 WBC (Bld) 46.5 % Normal 43.0-75.0 [facility] Comment on above: Performed By: #### P OCGLUC #### [facility] [address] [place] [address] Dr. Norbert Polk Platelet mean volume (Bld) [Entitic vol] 9.5 fL Normal 9.5-13.5 [facility] Comment on above: Performed By: #### P OCGLUC #### [facility] [address] [address] [address] Norbert Polk PLT 228 103/ul Normal 150-450 [facility] Comment on above: Performed By: #### P OCGLUC #### [facility] [address] [address] [address] Norbert Polk RBC 3.69 106/ul Critically low 4.70-6.10 [facility] Comment on above: Performed By: #### P OCGLUC #### [facility] [address] [address] [address] Norbert Polk WBC 9.2 103/ul Normal 4.0-11.0 [facility] Comment on above: Performed By: #### P OCGLUC #### [facility] [address] [address] [address] Norbert Polk MAGNESIUMon 10-31-2022 Magnesium [Mass/Vol] 1.6 mg/dL Critically low 1.8-2.4 [facility] Comment on above: Performed By: #### C MP, CMADM, BNP #### [facility] [address] [address] [address] Norbert Polk Office Visiton 10-31-2022 Follow-up visit [id number] Jose Ferreira 1940 M Date Provider Department Center 10/31/2022 NIA PORTILLO [facility] Family History Problem Relation Age of Onset Cancer Father Alcohol abuse Father Family Status - Relation Status Age at Father Level of Service:61179 CO OFFICE/OUTPATIENT ESTABLISHED MOD MDM 30-39 MIN Reason for Visit and Comments: Atrial Fibrillation [80] Congestive Heart Failure [127] Hypertension [114319] Normal [facility] PROF CHEM 8 (BAS METB)on Anion gap [Moles/Vol] 13.5 mmol/L Normal [facility] Comment on above: Performed By: #### C MP, CMADM, BNP #### [facility] [address] [address] [address] Norbert Polk Calcium [Mass/Vol] 10.5 mg/dL Critically high 8.5-10.1 [facility] Comment on above: Performed By: #### C MP, CMADM, BNP #### [facility] [address] [address] [address] Norbert Polk Chloride [Moles/Vol] 105 mmol/L Normal 98-107 [facility] Comment on above: Performed By: #### C MP, CMADM, BNP #### [facility] [address] [address] [address] Norbert Polk CO2 [Moles/Vol] 26.9 mmol/L Normal 21.0-32.0 [facility] Comment on above: Performed By: #### C MP, CMADM, BNP #### [facility] [address] [address] [address] Norbert Polk Creatinine [Mass/Vol] 1.93 mg/dL Critically high 0.70-1.30 [facility] Comment on above: Performed By: #### C MP, CMADM, BNP #### [facility] [address] [address] [address] Norbert Polk EGFR-AF BURUNDIAN 40 mL/min/1.73m2 Critically low >=60 [facility] Comment on above: Performed By: #### C MP, CMADM, BNP #### [facility] [address] [place] [address] Dr. Norbert Polk EGFR-NON AF BURUNDIAN 33 mL/min/1.73m2 Critically low >=60 [facility] Comment on above: Performed By: #### C MP, CMADM, BNP #### [facility] [address] [address] [address] Norbert Polk Glucose [Mass/Vol] 111 mg/dL Critically high 74-106 [facility] Comment on above: Performed By: #### C MP, CMADM, BNP #### [facility] [address] [place] [address] Dr. Norbert Polk Potassium [Moles/Vol] 5.4 mmol/L Critically high 3.5-5.1 [facility] Comment on above: Performed By: #### C MP, CMADM, BNP #### [facility] [address] [address] [address] Norbert Polk Sodium [Moles/Vol] 140 mmol/L Normal 136-145 [facility] Comment on above: Performed By: #### C MP, CMADM, BNP #### [facility] [address] [address] [address] Norbert Polk Urea nitrogen [Mass/Vol] 65.0 mg/dL Critically high 7.0-18.0 [facility] Comment on above: Performed By: #### C MP, CMADM, BNP #### [facility] [address] [address] [address] Norbert Polk Urea nitrogen/Creatinine [Mass ratio] 33.7 mg/mg Normal [facility] Comment on above: Performed By: #### C MP, CMADM, BNP #### [facility] [address] [address] [address] Norbert Polk HEMOGLOBINon 05-09-2022 Hemoglobin (Bld) [Mass/Vol] 10.7 g/dL Critically low 14.0-18.0 [facility] Comment on above: Performed By: #### C MP, CMADM, BNP #### [facility] [address] [address] [address] Norbert Polk BASIC METABOLIC PANELon 11-22 Calcium [Mass/Vol] 8.7 mg/dL Normal 8.6-10.3 [facility] Comment on above: Order Comment: No: D o not add to previous draw Nurse draw Ronak Moseley Performed By: #### 0 0071, 71266 #### [facility] [address] [place] [address], [place] Chloride [Moles/Vol] 105 mmol/L Normal 98-107 [facility] Comment on above: Order Comment: No: D o not add to previous draw Nurse draw Ronak Moseley Performed By: #### 0 007, 88626 #### [facility] [address] [place] [address], [place] CO2 [Moles/Vol] 24 mmol/L Normal 21-31 [facility] Comment on above: Order Comment: No: D o not add to previous draw Nurse draw Rn Lorelei Performed By: #### 0 0071, 23060 #### [facility] [address] [place] [address], [place] Creatinine [Mass/Vol] 1.22 mg/dL Normal 0.70-1.30 [facility] Comment on above: Order Comment: No: D o not add to previous draw Nurse draw Rn Lorelei Performed By: #### 0 0071, 96212 #### [facility] [address] [place] [address], [place] eGFR- non- 57 ml/min/1.73sq m Abnormal >60 [facility] Comment on above: Order Comment: No: D o not add to previous draw Nurse draw Rn Lorelei Result Comment: Calc ulation may not be valid for patients over 70 years Performed By: #### 0 0071, 58353 #### [facility] [address] [place] [address], [facility] GFR/1.73 sq M.predicted among blacks MDRD (S/P/Bld) [Vol rate/Area] mL/min/{1.73_m2} Normal >60 [facility] Comment on above: Order Comment: No: D o not add to previous draw Nurse draw Rn Lorelei Result Comment: Calc ulation may not be valid for patients over 70 years Performed By: #### 0 0071, 88925 #### [facility] [address] [place] [address], [place] Glucose [Mass/Vol] 156 mg/dL High 70-100 [facility] Comment on above: Order Comment: No: D o not add to previous draw Nurse draw Rn Lorelei Performed By: #### 0 0071, 31244 #### [facility] [address] [place] [address], [place] Potassium [Moles/Vol] 3.9 mmol/L Normal 3.5-5.1 [facility] Comment on above: Order Comment: No: D o not add to previous draw Nurse draw Rn Lorelei Performed By: #### 0 0071, 82693 #### [facility] [address] [place] [id number], [facility] Sodium [Moles/Vol] 136 mmol/L Normal 136-145 [facility] Comment on above: Order Comment: No: D o not add to previous draw Nurse draw Rn Lorelei Performed By: #### 0 0071, 25985 #### [facility] [address] [place] [id number], [facility] Urea nitrogen [Mass/Vol] 36 mg/dL High 7-25 [facility] Comment on above: Order Comment: No: D o not add to previous draw Nurse draw Rn Lorelei Performed By: #### 0 0071, 71224 #### [facility] [address] [place] [id number], [facility] CBC COMPLETE BLOOD COUNTon 0 12-05-2021 Erythrocyte distribution width (RBC) [Ratio] 15.7 % High 11.5-15.0 [facility] Comment on above: Order Comment: No: D o not add to previous draw Performed By: #### 0 0121, 32407, 77242 #### [facility] [address] [place] [address], [facility] Hematocrit (Bld) [Volume fraction] 28.4 % Low 39.0-50.0 [facility] Comment on above: Order Comment: No: D o not add to previous draw Performed By: #### 0 0121, 23296, 16517 #### [facility] [address] [place] [address], [facility] Hemoglobin (Bld) [Mass/Vol] 9.0 g/dL Low 13.0-17.0 [facility] Comment on above: Order Comment: No: D o not add to previous draw Performed By: #### 0 0121, 45584, 65845 #### [facility] [address] [place] [address], [facility] MCH (RBC) [Entitic mass] 28.8 pg Normal 27.0-33.0 [facility] Comment on above: Order Comment: No: D o not add to previous draw Performed By: #### 0 0121, 48027, 26176 #### [facility] [address] [place] [address], [facility] MCHC (RBC) [Mass/Vol] 31.7 g/dL Low 32.0-35.0 [facility] Comment on above: Order Comment: No: D o not add to previous draw Performed By: #### 0 0121, 03143, 01216 #### [facility] [address] [place] [place] [address], [facility] MCV (RBC) [Entitic vol] 91.0 fL Normal 82.0-98.0 [facility] Comment on above: Order Comment: No: D o not add to previous draw Performed By: #### 0 0121, 90169, 89238 #### [facility] [address] [facility]. [address] Nucleated RBC/100 WBC (Bld) [Ratio] 0 % Normal 0-0 [facility] Comment on above: Order Comment: No: D o not add to previous draw Performed By: #### 0 0121, 12230, 53136 #### [facility] [address] [facility] [address], [facility] PLAT CNT 319 10*3/uL Normal 150-400 [facility] Comment on above: Order Comment: No: D o not add to previous draw Performed By: #### 0 0121, 96640, 59962 #### [facility] [address] [place] [address], [facility] RBC (Bld) [#/Vol] 3.12 10*6/uL Low 4.20-5.70 [facility] Comment on above: Order Comment: No: D o not add to previous draw Performed By: #### 0 0121, 54652, 35430 #### [facility] [address] [place] [address], [facility] WBC (Bld) [#/Vol] 9.06 10*3/uL Normal 4.00-10.60 [facility] Comment on above: Order Comment: No: D o not add to previous draw Performed By: #### 0 0121, 18895, 68981 #### [facility] [address] [place] [address], [facility] LIVER BATTERYon 12-05-2021 Albumin [Mass/Vol] 2.7 g/dL Low 3.5-5.7 [facility] Comment on above: Performed By: #### 0 0071, 08298 #### [facility] [address] [place] [address], [facility] ALKALINE PHOSPH 107 IU/L High 34-104 [facility] Comment on above: Performed By: #### 0 0071, 50960 #### [facility] [address] [place] [address], [facility] ALT [Catalytic activity/Vol] 107 U/L High 7-52 [facility] Comment on above: Performed By: #### 0 0071, 98047 #### [facility] [address] [place] [address], [facility] AST [Catalytic activity/Vol] 97 U/L High 13-39 [facility] Comment on above: Performed By: #### 0 0071, 98161 #### [facility] [address] [place] [address], [facility] Bilirubin [Mass/Vol] 0.2 mg/dL Low 0.3-1.0 [facility] Comment on above: Performed By: #### 0 0071, 27467 #### [facility] [address] [place] [address], [place] Bilirubin.direct [Mass/Vol] 0.0 mg/dL Normal 0.0-0.2 [facility] Comment on above: Performed By: #### 0 0071, 66865 #### [facility] [address] [place] [address], [place] Protein [Mass/Vol] 6.2 g/dL Normal 6.0-8.3 [facility] Comment on above: Performed By: #### 0 0071, 39359 #### [facility] [address] [place] [address], [place] POC GLUCOSE LABon 12-05-2021 Glucose [Mass/Vol] 433 mg/dL High 70-100 [facility] Comment on above: Performed By: #### 3 5200, 20850 #### [facility] [address] [place] [address], [place] Glucose [Mass/Vol] 191 mg/dL High 70-100 [facility] Comment on above: Performed By: #### 3 5200, 09117 #### [facility] [address] [place] [address], [place] BASIC METABOLIC PANELon 11-22 Calcium [Mass/Vol] 8.6 mg/dL Normal 8.6-10.3 [facility] Comment on above: Order Comment: No: D o not add to previous draw Performed By: #### 0 0121, 08599, 40616 #### [facility] [address] [place] [address], [place] Chloride [Moles/Vol] 104 mmol/L Normal 98-107 [facility] Comment on above: Order Comment: No: D o not add to previous draw Performed By: #### 0 0121, 28415, 18569 #### [facility] [address] [place] [address], [place] CO2 [Moles/Vol] 22 mmol/L Normal 21-31 [facility] Comment on above: Order Comment: No: D o not add to previous draw Performed By: #### 0 0121, 17678, 69224 #### [facility] [address] [place] [address], [facility] Creatinine [Mass/Vol] 1.48 mg/dL High 0.70-1.30 [facility] Comment on above: Order Comment: No: D o not add to previous draw Performed By: #### 0 0121, 62361, 86404 #### [facility] [address] [place] [address], [facility] eGFR- 55 ml/min/1.73sq m Abnormal >60 [facility] Comment on above: Order Comment: No: D o not add to previous draw Result Comment: Calc ulation may not be valid for patients over 70 years Performed By: #### 0 0121, 53302, 94396 #### [facility] [address] [facility] [address], [facility] eGFR- non- 45 ml/min/1.73sq m Abnormal >60 [facility] Comment on above: Order Comment: No: D o not add to previous draw Result Comment: Calc ulation may not be valid for patients over 70 years Performed By: #### 0 0121, 59685, 43536 #### [facility] [address] [place] [address], [facility] Glucose [Mass/Vol] 112 mg/dL High 70-100 [facility] Comment on above: Order Comment: No: D o not add to previous draw Performed By: #### 0 0121, 43069, 71240 #### [facility] [address] [place] [address], [facility] Potassium [Moles/Vol] 3.8 mmol/L Normal 3.5-5.1 [facility] Comment on above: Order Comment: No: D o not add to previous draw Performed By: #### 0 0121, 02968, 66731 #### [facility] [address] [place] [address], [facility] Sodium [Moles/Vol] 135 mmol/L Low 136-145 [facility] Comment on above: Order Comment: No: D o not add to previous draw Performed By: #### 0 0121, 89926, 51004 #### [facility] [address] [place] [address], [facility] Urea nitrogen [Mass/Vol] 32 mg/dL High 7-25 [facility] Comment on above: Order Comment: No: D o not add to previous draw Performed By: #### 0 0121, 40993, 88405 #### [facility] [address] [facility] [place] [address], [facility] CBC COMPLETE BLOOD COUNTon 0 - Erythrocyte distribution width (RBC) [Ratio] 15.9 % High 11.5-15.0 [facility] Comment on above: Order Comment: No: D o not add to previous draw Performed By: #### 0 0121, 79202, 12302 #### [facility] [address] [facility] [place] [address], [facility] Hematocrit (Bld) [Volume fraction] 28.5 % Low 39.0-50.0 [facility] Comment on above: Order Comment: No: D o not add to previous draw Performed By: #### 0 0121, 47887, 28243 #### [facility] [address] [facility] [place] [address], [facility] Hemoglobin (Bld) [Mass/Vol] 9.2 g/dL Low 13.0-17.0 [facility] Comment on above: Order Comment: No: D o not add to previous draw Performed By: #### 0 0121, 67323, 46746 #### [facility] [address] [place] [address], [facility] MCH (RBC) [Entitic mass] 28.5 pg Normal 27.0-33.0 [facility] Comment on above: Order Comment: No: D o not add to previous draw Performed By: #### 0 0121, 35223, 09704 #### [facility] [address] [place] [address], [facility] MCHC (RBC) [Mass/Vol] 32.3 g/dL Normal 32.0-35.0 [facility] Comment on above: Order Comment: No: D o not add to previous draw Performed By: #### 0 0121, 33081, 38859 #### [facility] [address] [place] [id number], [facility] MCV (RBC) [Entitic vol] 88.2 fL Normal 82.0-98.0 [facility] Comment on above: Order Comment: No: D o not add to previous draw Performed By: #### 0 0121, 36336, 38146 #### [facility] [address] [place] [id number], [facility] Nucleated RBC/100 WBC (Bld) [Ratio] 0 % Normal 0-0 [facility] Comment on above: Order Comment: No: D o not add to previous draw Performed By: #### 0 0121, 48416, 68347 #### [facility] [address] [place] [id number], [facility] PLAT CNT 308 10*3/uL Normal 150-400 [facility] Comment on above: Order Comment: No: D o not add to previous draw Performed By: #### 0 0121, 24965, 86094 #### [facility] [address] [place] [address], [facility] RBC (Bld) [#/Vol] 3.23 10*6/uL Low 4.20-5.70 [facility] Comment on above: Order Comment: No: D o not add to previous draw Performed By: #### 0 0121, 11078, 44246 #### [facility] [address] [place] [address], [facility] WBC (Bld) [#/Vol] 11.47 10*3/uL High 4.00-10.60 [facility] Comment on above: Order Comment: No: D o not add to previous draw Performed By: #### 0 0121, 32657, 28320 #### [facility] [address] [place] [address], [facility] POC GLUCOSE LABon 12-04-2021 Glucose [Mass/Vol] 198 mg/dL High 70-100 [facility] Comment on above: Performed By: #### 3 5200, 25601 #### [facility] [address] [facility] [address], [facility] Glucose [Mass/Vol] 326 mg/dL High 70-100 [facility] Comment on above: Performed By: #### 3 5200, 40237 #### [facility] [address] [place] [address], [facility] Glucose [Mass/Vol] 424 mg/dL High 70-100 [facility] Comment on above: Performed By: #### 3 5200, 49909 #### [facility] [address] [place] [address], [facility] Glucose [Mass/Vol] 158 mg/dL High 70-100 [facility] Comment on above: Performed By: #### 3 5200, 52766 #### [facility] [address] [place] [address], [facility] *SARS-CoV-2 COVID-19on 12-03 SARS-CoV-2 (COVID-19) RNA KAYLIN+probe Ql (Unsp spec) Not detected Normal Not Detected [facility] Comment on above: Order Comment: No: D o not add to previous draw Performed By: #### 3 5200, 41746 #### [facility] [address] [place] [address], [facility] APTTon 12-03-2021 aPTT Coag (Bld) [Time] 35.5 s High 25.0-35.0 [facility] Comment on above: Order [...] THIS PURPOSE. Performed By: #### 3 5200, 93845 #### [facility] [address] [place] [address], [facility] BASIC METABOLIC PANELon 11-22 Calcium [Mass/Vol] 8.6 mg/dL Normal 8.6-10.3 [facility] Comment on above: Order Comment: No: D o not add to previous draw Performed By: #### 0 0121, 45166, 51612 #### [facility] [address] [place] [address], [place] Chloride [Moles/Vol] 103 mmol/L Normal 98-107 [facility] Comment on above: Order Comment: No: D o not add to previous draw Performed By: #### 0 0121, 90036, 61546 #### [facility] [address] [place] [address], [place] CO2 [Moles/Vol] 22 mmol/L Normal 21-31 [facility] Comment on above: Order Comment: No: D o not add to previous draw Performed By: #### 0 0121, 48381, 13369 #### [facility] [address] [place] [address], [place] Creatinine [Mass/Vol] 1.52 mg/dL High 0.70-1.30 [facility] Comment on above: Order Comment: No: D o not add to previous draw Performed By: #### 0 0121, 27212, 27087 #### [facility] [address] [place] [address], [place] eGFR- 53 ml/min/1.73sq m Abnormal >60 [facility] Comment on above: Order Comment: No: D o not add to previous draw Result Comment: Calc ulation may not be valid for patients over 70 years Performed By: #### 0 0121, 80514, 71436 #### [facility] [address] [place] [address], [place] eGFR- non- 44 ml/min/1.73sq m Abnormal >60 [facility] Comment on above: Order Comment: No: D o not add to previous draw Result Comment: Calc ulation may not be valid for patients over 70 years Performed By: #### 0 0121, 63247, 39780 #### [facility] [address] [place] [address], [place] Glucose [Mass/Vol] 214 mg/dL High 70-100 [facility] Comment on above: Order Comment: No: D o not add to previous draw Performed By: #### 0 0121, 66489, 23088 #### [facility] [address] [place] [address], [place] Potassium [Moles/Vol] 4.3 mmol/L Normal 3.5-5.1 [facility] Comment on above: Order Comment: No: D o not add to previous draw Performed By: #### 0 0121, 92822, 64292 #### [facility] [address] [place] [address], [place] Sodium [Moles/Vol] 132 mmol/L Low 136-145 [facility] Comment on above: Order Comment: No: D o not add to previous draw Performed By: #### 0 0121, 29228, 20984 #### [facility] [address] [place] [address], [place] Urea nitrogen [Mass/Vol] 35 mg/dL High 7-25 [facility] Comment on above: Order Comment: No: D o not add to previous draw Performed By: #### 0 0121, 03454, 57096 #### [facility] [address] [place] [address], [facility] C REACTIVE PROTEINon 022 CRP [Mass/Vol] 156.0 mg/L High 0.0-7.0 [facility] mikel [facility] Comment on above: Order Comment: No: D o not add to previous draw Performed By: #### 3 5200, 40331 #### [facility] [address] [place] [address], [facility] CBC COMPLETE BLOOD COUNTon 0 12-03-2021 Erythrocyte distribution width (RBC) [Ratio] 15.7 % High 11.5-15.0 [facility] Comment on above: Order Comment: No: D o not add to previous draw Performed By: #### 3 5200, 44759 #### [facility] [address] [place] [address], [facility] Hematocrit (Bld) [Volume fraction] 27.6 % Low 39.0-50.0 [facility] Comment on above: Order Comment: No: D o not add to previous draw Performed By: #### 3 5200, 13378 #### [facility] [address] [place] [address], [facility] Hemoglobin (Bld) [Mass/Vol] 8.8 g/dL Low 13.0-17.0 [facility] Comment on above: Order Comment: No: D o not add to previous draw Performed By: #### 3 5200, 10286 #### [facility] [address] [place] [address], [place] MCH (RBC) [Entitic mass] 29.2 pg Normal 27.0-33.0 [facility] Comment on above: Order Comment: No: D o not add to previous draw Performed By: #### 3 5200, 08210 #### [facility] [address] [place] [address], [facility] MCHC (RBC) [Mass/Vol] 31.9 g/dL Low 32.0-35.0 [facility] Comment on above: Order Comment: No: D o not add to previous draw Performed By: #### 3 5199, 46110 #### [facility] [address] [place] [id number], [facility] MCV (RBC) [Entitic vol] 91.7 fL Normal 82.0-98.0 [facility] Comment on above: Order Comment: No: D o not add to previous draw Performed By: #### 3 5199, 41234 #### [facility] [address] [place] [address], [facility] Nucleated RBC/100 WBC (Bld) [Ratio] 0 % Normal 0-0 [facility] Comment on above: Order Comment: No: D o not add to previous draw Performed By: #### 3 5199, 16827 #### [facility] [address] [place] [address], [place] PLAT CNT 269 10*3/uL Normal 150-400 [facility] Comment on above: Order Comment: No: D o not add to previous draw Performed By: #### 3 5199, 23417 #### [facility] [address] [place] [id number], [facility] RBC (Bld) [#/Vol] 3.01 10*6/uL Low 4.20-5.70 [facility] Comment on above: Order Comment: No: D o not add to previous draw Performed By: #### 3 5199, 23066 #### [facility] [address] [place] [address], [place] WBC (Bld) [#/Vol] 10.88 10*3/uL High 4.00-10.60 [facility] Comment on above: Order Comment: No: D o not add to previous draw Performed By: #### 3 5199, 94546 #### [facility] [address] [place] [address], [place] CPKon 12-03-2021 CK [Catalytic activity/Vol] 24 U/L Low 30-223 [facility] Comment on above: Performed By: #### 0 0121, 88939, 41813 #### [facility] [address] [place] [address], [place] MAGNESIUM BLOODon 12-03-2021 Magnesium [Mass/Vol] 2.4 mg/dL Normal 1.9-2.7 [facility] Comment on above: Order Comment: No: D o not add to previous draw Performed By: #### 0 0121, 65873, 82403 #### [facility] [address] [place] [address], [place] PHOSPHORUS BLOODon Phosphate [Mass/Vol] 2.3 mg/dL Low 2.5-5.0 [facility] Comment on above: Order Comment: No: D o not add to previous draw Performed By: #### 0 0121, 57211, 89512 #### [facility] [address] [place] [address], [place] POC GLUCOSE LABon 12-03-2021 Glucose [Mass/Vol] 275 mg/dL High 70-100 [facility] Comment on above: Performed By: #### 3 5200, 32743 #### [facility] [address] [place] [address], [place] Glucose [Mass/Vol] 325 mg/dL High 70-100 [facility] Comment on above: Performed By: #### 3 5200, 96843 #### [facility] [address] [place] [address], [place] Glucose [Mass/Vol] 312 mg/dL High 70-100 [facility] Comment on above: Performed By: #### 3 5200, 10931 #### [facility] [address] [place] [address], [facility] Glucose [Mass/Vol] 202 mg/dL High 70-100 [facility] Comment on above: Performed By: #### 3 5860, 62552 #### [facility] [address] [place] [address], [facility] TROPONIN-Ion 12-03-2021 Troponin I.cardiac [Mass/Vol] 0.03 ng/mL Normal 0.00-0.04 [facility] Comment on above: Order Comment: No: D o not add to previous draw Result Comment: REFE RENCE RANGES: 0.00 - 0.04 ng/ml NORMAL 0.05 - 0.50 ng/ml INDETERMINATE > 0.50 ng/ml CONSISTENT WITH AN M.I. Performed By: #### 3 5200 #### [facility] [address] Troponin I.cardiac [Mass/Vol] 0.07 ng/mL High 0.00-0.04 [facility] Comment on above: Order Comment: No: D o not add to previous draw Result Comment: REFE RENCE RANGES: 0.00 - 0.04 ng/ml NORMAL 0.05 - 0.50 ng/ml INDETERMINATE > 0.50 ng/ml CONSISTENT WITH AN M.I. Performed By: #### 3 2440, 85716 #### [facility] [address] [facility]. [address] TSH3 WITH REFLEX FT4on 12-03 TSH 3RD GENERATION 0.64 uIU/mL Normal 0.34-5.60 [facility] Comment on above: Order Comment: Yes: Add to Previous draw if able Performed By: #### 3 0840, 79465 #### [facility] [address] [facility]. [address] UFH HEPARIN ASSAYon 12-03-19 22 UNFRACTIONATED HEPARIN <0.10 Critically low 0.30-0.70 [facility] Comment on above: Result Comment: Resu lt checked and called. Accurately read back by JADE JO ON 12/03/2021 AT 12:35 Rivaroxaban and Apixaban will interfere with the anti Xa assay used to monitor UFH and LMWH. Performed By: #### 3 5200, 22853 #### [facility] [address] *BLOOD CULTUREon 12-02-2021 *BLOOD CULTURE Clinical Report: (D) Specimen: BLOOD CULTURE Collected: 12/02/2021 20:10 Status: Final Last Updated: 12/08/2021 07:52 (1) RH 2009 CULT RES (Final) No Growth Day 5 Normal [facility] Comment on above: Order Comment: No: D o not add to previous draw Performed By: #### 3 6100, 56047 #### [facility] [address] *BLOOD CULTURE Clinical Report: (D) Specimen: BLOOD CULTURE Collected: 12/02/2021 20:05 Status: Final Last Updated: 12/08/2021 07:52 (1) LH 2004 CULT RES (Final) No Growth Day 5 Normal [facility] Comment on above: Order Comment: Yes: Add to Previous draw if able Performed By: #### 3 6340, 46125 #### [facility] [address] BNP (B-TYPE NATRIURETIC PEPT KARRIE)on 12-02-2021 Natriuretic peptide B (Bld) [Mass/Vol] 115 pg/mL High 0-100 [facility] Comment on above: Order Comment: No: D o not add to previous draw Result Comment: Give n the appropriate clinical setting a BNP result of >100 pg/mL indicates congestive heart failure. Performed By: #### 0 0121, 13399, 34192 #### [facility] [address] [place] [address], [facility] CBC W/DIFFon 12-02-2021 ABS IMM GRANS 0.1 10*3/uL Normal 0.0-0.2 [facility] Comment on above: Order Comment: No: D o not add to previous draw Performed By: #### 0 0121, 27827, 85135 #### [facility] [address] [place] [address], [place] ABS NEUTROPHILS 7.5 10*3/uL Normal 1.6-7.6 [facility] Comment on above: Order Comment: No: D o not add to previous draw Performed By: #### 0 0121, 15556, 90177 #### [facility] [address] [place] [address], [place] Basophils (Bld) [#/Vol] 0.1 10*3/uL Normal 0.0-0.2 [facility] Comment on above: Order Comment: No: D o not add to previous draw Performed By: #### 0 0121, 24630, 50179 #### [facility] [address] [place] [address], [place] Basophils/100 WBC (Bld) 0.7 % Normal 0.0-1.0 [facility] Comment on above: Order Comment: No: D o not add to previous draw Performed By: #### 0 0121, 45780, 14037 #### [facility] [address] [place] [address], [place] Eosinophils (Bld) [#/Vol] 1.3 10*3/uL High 0.0-0.5 [facility] Comment on above: Order Comment: No: D o not add to previous draw Performed By: #### 0 0121, 74529, 46548 #### [facility] [address] [place] [address], [place] Eosinophils/100 WBC (Bld) 10.2 % High 0.0-6.0 [facility] Comment on above: Order Comment: No: D o not add to previous draw Performed By: #### 0 0121, 95357, 13685 #### [facility] [address] Erythrocyte distribution width (RBC) [Ratio] 15.9 % High 11.5-15.0 [facility] Comment on above: Order Comment: No: D o not add to previous draw Performed By: #### 0 0121, 45115, 52255 #### [facility] [address] [place] [address], [facility] Hematocrit (Bld) [Volume fraction] 31.1 % Low 39.0-50.0 [facility] Comment on above: Order Comment: No: D o not add to previous draw Performed By: #### 0 0121, 62291, 96293 #### [facility] [address] Hemoglobin (Bld) [Mass/Vol] 9.7 g/dL Low 13.0-17.0 [facility] Comment on above: Order Comment: No: D o not add to previous draw Performed By: #### 0 0121, 56549, 34523 #### [facility] [address] [place] [address], [facility] IMMATURE GRANS 0.4 % Normal 0.0-1.0 [facility] Comment on above: Order Comment: No: D o not add to previous draw Performed By: #### 0 0121, 02196, 77097 #### [facility] [address] [facility] [place] [address], [facility] Lymphocytes (Bld) [#/Vol] 2.5 10*3/uL Normal 1.2-4.0 [facility] Comment on above: Order Comment: No: D o not add to previous draw Performed By: #### 0 0121, 30551, 88067 #### [facility] [address] [place] [id number], [facility] Lymphocytes/100 WBC (Bld) 20.6 % Normal 20.0-45.0 [facility] Comment on above: Order Comment: No: D o not add to previous draw Performed By: #### 0 0121, 10387, 88576 #### [facility] [address] [place] [address], [facility] MCH (RBC) [Entitic mass] 29.0 pg Normal 27.0-33.0 [facility] Comment on above: Order Comment: No: D o not add to previous draw Performed By: #### 0 0121, 65193, 70214 #### [facility] [address] [place] [address], [facility] MCHC (RBC) [Mass/Vol] 31.2 g/dL Low 32.0-35.0 [facility] Comment on above: Order Comment: No: D o not add to previous draw Performed By: #### 0 0121, 33699, 41563 #### [facility] [address] [place] [address], [facility] MCV (RBC) [Entitic vol] 93.1 fL Normal 82.0-98.0 [facility] Comment on above: Order Comment: No: D o not add to previous draw Performed By: #### 0 0121, 53464, 77232 #### [facility] [address] [place] [address], [facility] Monocytes (Bld) [#/Vol] 0.9 10*3/uL Normal 0.1-1.0 [facility] Comment on above: Order Comment: No: D o not add to previous draw Performed By: #### 0 0121, 58996, 68443 #### [facility] [address] [place] [address], [facility] MONOS 7.0 % Normal 5.0-12.0 [facility] Comment on above: Order Comment: No: D o not add to previous draw Performed By: #### 0 0121, 82008, 37774 #### [facility] [address] [place] [id number], [facility] Neutrophils/100 WBC (Bld) 61.1 % Normal 40.0-72.0 [facility] Comment on above: Order Comment: No: D o not add to previous draw Performed By: #### 0 0121, 38630, 81524 #### [facility] [address] [place] [address], [facility] Nucleated RBC/100 WBC (Bld) [Ratio] 0 % Normal 0-0 [facility] Comment on above: Order Comment: No: D o not add to previous draw Performed By: #### 0 0121, 03869, 91496 #### [facility] [address] [place] [address], [place] PLAT CNT 280 10*3/uL Normal 150-400 [facility] Comment on above: Order Comment: No: D o not add to previous draw Performed By: #### 0 0121, 78982, 20010 #### [facility] [address] [place] [address], [facility] RBC (Bld) [#/Vol] 3.34 10*6/uL Low 4.20-5.70 [facility] Comment on above: Order Comment: No: D o not add to previous draw Performed By: #### 0 0121, 46573, 34347 #### [facility] [address] [place] [address], [place] WBC (Bld) [#/Vol] 12.30 10*3/uL High 4.00-10.60 [facility] Comment on above: Order Comment: No: D o not add to previous draw Performed By: #### 0 0121, 44516, 89895 #### [facility] [address] [place] [address], [place] COMP METABOLIC PANELon 12-02 Albumin [Mass/Vol] 2.9 g/dL Low 3.5-5.7 [facility] Comment on above: Order Comment: No: D o not add to previous draw Performed By: #### 0 0121, 87223, 74228 #### [facility] [address] [place] [address], [facility] ALKALINE PHOSPH 96 IU/L Normal 34-104 [facility] Comment on above: Order Comment: No: D o not add to previous draw Performed By: #### 0 0121, 60326, 24356 #### [facility] [address] [place] [address], [place] ALT [Catalytic activity/Vol] 112 U/L High 7-52 [facility] Comment on above: Order Comment: No: D o not add to previous draw Performed By: #### 0 0121, 69329, 47973 #### [facility] [address] [place] [address], [place] AST [Catalytic activity/Vol] 115 U/L High 13-39 [facility] Comment on above: Order Comment: No: D o not add to previous draw Performed By: #### 0 0121, 24026, 18808 #### [facility] [address] [place] [address], [place] Bilirubin [Mass/Vol] 0.2 mg/dL Low 0.3-1.0 [facility] Comment on above: Order Comment: No: D o not add to previous draw Performed By: #### 0 0121, 27654, 55376 #### [facility] [address] [place] [address], [place] Calcium [Mass/Vol] 8.6 mg/dL Normal 8.6-10.3 [facility] Comment on above: Order Comment: No: D o not add to previous draw Performed By: #### 0 0121, 47067, 46967 #### [facility] [address] [place] [address], [place] Chloride [Moles/Vol] 106 mmol/L Normal 98-107 [facility] Comment on above: Order Comment: No: D o not add to previous draw Performed By: #### 0 0121, 51963, 25759 #### [facility] [address] [place] [address], [facility] CO2 [Moles/Vol] 20 mmol/L Low 21-31 [facility] Comment on above: Order Comment: No: D o not add to previous draw Performed By: #### 0 0121, 79021, 68217 #### [facility] [address] [place] [address], [place] Creatinine [Mass/Vol] 1.80 mg/dL High 0.70-1.30 [facility] Comment on above: Order Comment: No: D o not add to previous draw Performed By: #### 0 0121, 61533, 51128 #### [facility] [address] [place] [address], [facility] eGFR- 44 ml/min/1.73sq m Abnormal >60 [facility] Comment on above: Order Comment: No: D o not add to previous draw Result Comment: Calc ulation may not be valid for patients over 70 years Performed By: #### 0 0121, 68138, 22111 #### [facility] [address] [place] [address], [facility] eGFR- non- 36 ml/min/1.73sq m Abnormal >60 [facility] Comment on above: Order Comment: No: D o not add to previous draw Result Comment: Calc ulation may not be valid for patients over 70 years Performed By: #### 0 0121, 85170, 62810 #### [facility] [address] [place] [address], [place] Glucose [Mass/Vol] 125 mg/dL High 70-100 [facility] Comment on above: Order Comment: No: D o not add to previous draw Performed By: #### 0 0121, 10748, 46478 #### [facility] [address] [place] [address], [place] Potassium [Moles/Vol] 4.2 mmol/L Normal 3.5-5.1 [facility] Comment on above: Order Comment: No: D o not add to previous draw Performed By: #### 0 0121, 80798, 99460 #### [facility] [address] [place] [address], [facility] Protein [Mass/Vol] 6.3 g/dL Normal 6.0-8.3 [facility] Comment on above: Order Comment: No: D o not add to previous draw Performed By: #### 0 0121, 82234, 16980 #### [facility] [address] [place] [address], [place] Sodium [Moles/Vol] 134 mmol/L Low 136-145 [facility] Comment on above: Order Comment: No: D o not add to previous draw Performed By: #### 0 0121, 01949, 64050 #### [facility] [address] [place] [address], [facility] Urea nitrogen [Mass/Vol] 41 mg/dL High 7-25 [facility] Comment on above: Order Comment: No: D o not add to previous draw Performed By: #### 0 0121, 88618, 42919 #### [facility] [address] [place] [address], [place] LACTATE WITH REFLEXon 2021 Lactate [Moles/Vol] 1.1 mmol/L Normal .5-2.2 [facility] Comment on above: Order Comment: No: D o not add to previous draw Performed By: #### 3 8040, 63086 #### [facility] [address] [place] [address], [place] MAGNESIUM BLOODon 12-02-2021 Magnesium [Mass/Vol] 1.2 mg/dL Critically low 1.9-2.7 [facility] Comment on above: Order Comment: No: D o not add to previous draw Performed By: #### 0 0121, 26515, 09551 #### [facility] [address] [facility] [address], [facility] POC GLUCOSE LABon 12-02-2021 Glucose [Mass/Vol] 179 mg/dL High 70-100 [facility] Comment on above: Performed By: #### 3 5200, 08896 #### [facility] [address] [place] [address], [facility] PORTABLE CHEST 1 VIEWon 11-22 PORTABLE CHEST 1 VIEW [facility] Department of Radiology [address] [place] [id number] Patient Name: JOSE FERREIRA : 1940 Sex: M Age: Race: White Pt. Location: [id number] Patient Status: I Ordered Date: 12/02/2021 7:35:00 [...] line. Electronically signed: Michael Clarke. Transcribed by: [email or web address], User Resident: Electronically Signed by: MICHAEL CLARKE @ 12/02/2021 10:07 PM Normal [facility] Comment on above: Order Comment: No: D o not add to previous draw PROCALCITONINon 12-02-2021 PROCALCITONIN 1.09 ng/mL High 0.00-0.10 [facility] Comment on above: Order Comment: [...] PCT<0.5ng/mL Performed By: #### 3 1488 #### [facility] [address] [place] [address], [facility] PROTHROMBIN TIMEon 2 INR Coag (PPP) [Relative time] 1.29 {INR} High 0.91-1.16 [facility] Comment on above: Order Comment: No: [...] CHEST 1995;[id number]. Performed By: #### 0 0121, 67559, 32350 #### [facility] [address] [place] [address], [facility] PT Coag (PPP) [Time] 16.0 s High 12.3-14.8 [facility] Comment on above: Order Comment: No: D o not add to previous draw Result Comment: ALL RESULTS MUST BE INTERPRETED WITH RESPECT TO BLOOD DRAWING ARTIFACT OR DILUTION ERROR OF ANTICOAGULANT AT THE TIME OF SAMPLING. Performed By: #### 0 0121, 43562, 79825 #### [facility] [address] [place] [address], [facility] TROPONIN-Ion 12-02-2021 Troponin I.cardiac [Mass/Vol] 0.03 ng/mL Normal 0.00-0.04 [facility] Comment on above: Order Comment: No: D o not add to previous draw Result Comment: REFE RENCE RANGES: 0.00 - 0.04 ng/ml NORMAL 0.05 - 0.50 ng/ml INDETERMINATE > 0.50 ng/ml CONSISTENT WITH AN M.I. Performed By: #### 0 0121, 02152, 77324 #### [facility] [address] [place] [address], [facility] US Venous, Unilat, Lower Ext Righton 10-20-2021 [...] by Jacob Puckett on 10/20/2021 1339 Normal [facility] [employer] Cult,Aerobe/Anaerobeon 02-03 Cult,Aerobe/Anaerobe Specimen Descriptio n .WOUND [...] Trimethoprim/Sulfa <=10 SUSCEPTIBLE Vancomycin <=0.5 SUSCEPTIBLE Normal [facility] [facility] Comment on above: Performed By: #### A ANC #### [address] [address] Data Recovery Planner: Zach Mckeon MD Cult,Aerobe/Anaerobeon 09-08 Cult,Aerobe/Anaerobe Specimen [...] Trimethoprim/Sulfa <=10 SUSCEPTIBLE Vancomycin 1 SUSCEPTIBLE Normal [facility] Comment on above: Performed By: #### A ANC #### [address] [address] Prealbuminon 08-16-2018 Prealbumin [Mass/Vol] 32.3 mg/dL Normal 20-40 [facility] Comment on above: Performed By: #### P ALB, TP #### [address] [address] Protein, Totalon 08-16-2018 Protein [Mass/Vol] 7.6 g/dL Normal 6.4-8.3 [facility] Comment on above: Performed By: #### P ALB, TP #### [facility] [address] [place] [address] Vital Signs Date Time Vital Sign Value Performing Clinician Moises domínguez 09-24-2023 11:07-0500 Blood Pressure Location Ozzy CONTEH [facility] 09-24-2023 11:07-0500 Diastolic blood pressure 66 mm[Hg] Ozzy CONTEH [facility] 09-24-2023 11:07-0500 Heart rate 60 /min Ozzydahiana CNOTEH [facility] 09-24-2023 11:07-0500 Respiratory rate 16 /min Ozzy CONTEH [facility] 09-24-2023 11:07-0500 Systolic blood pressure 95 mm[Hg] Ozzy CONTEH [facility] 08-27-2023 12:44-0500 Blood Pressure Location Ozzy CONTEH [facility] 08-27-2023 12:44-0500 Diastolic blood pressure 77 mm[Hg] Ozzy CONTEH [facility] 08-27-2023 12:44-0500 Heart rate 97 /min Ozzy CONTEH [facility] 08-27-2023 12:44-0500 Systolic blood pressure 111 mm[Hg] Ozzy CONTEH [facility] Encounters Encounter Date Encounter Type Care Provider Facility Start: 10-19-2023 ambulatory Ozzy Castillo ty:[facility] Start: 09-28-2023 End: 09-28-2023 ambulatory [facility] Start: 09-26-2023 End: 09-26-2023 ambulatory GINNY HERNANDEZ Not Available Start: 09-24-2023 End: 09-25-2023 ambulatory Ozzy CONTEH Facility:[facility] Start: 09-24-2023 End: 09-24-2023 Patient encounter procedure Ozzy CONTEH [facility] Start: 09-12-2023 End: 09-13-2023 ambulatory VALENCIA SNYDERRY Facility:[facility] Start: 09-12-2023 End: 09-12-2023 Patient encounter procedure VALENCIA WALSH [facility] Start: 08-30-2023 End: 08-31-2023 ambulatory Ozzy CONTEH Facility:[id number] Start: 08-29-2023 End: 08-29-2023 ambulatory SHANTARSHA Thomas MARCY [facility] Start: 08-27-2023 End: 08-28-2023 ambulatory Ozzy CONTEH Facility:[facility] Start: 08-27-2023 End: 08-27-2023 Patient encounter procedure Ozzy CONTEH [facility] Start: 08-06-2023 End: 08-06-2023 ambulatory [facility] Start: 06-18-2023 End: 06-19-2023 ambulatory Ozzy CONTEH Facility:[facility] Start: 06-18-2023 End: 06-18-2023 Patient encounter procedure Ozzy CONTEH [facility] Start: 04-16-2023 End: 04-16-2023 ambulatory [facility] Start: 04-04-2023 End: 04-04-2023 ambulatory FELIX SOTO [facility] Start: 03-28-2023 End: 03-28-2023 ambulatory [facility] Start: 03-27-2023 End: 03-27-2023 ambulatory [facility] Start: 02-09-2023 End: 02-10-[address] FARZAD DODSON . Facility:[facility] Start: 01-10-2023 End: 01-11-2023 Evaluation and management of inpatient DR FARZAD DODSON . Facility:[facility] Start: 01-09-2023 End: 01-09-2023 ambulatory [facility] Start: 01-05-2023 End: 01-05-[address] VALENTÍN ZIMMERMAN Facility:[facility] Start: 01-01-2023 End: 01-01-2023 ambulatory [facility] Start: 12-18-2022 End: 12-19-2022 ambulatory Ozzy CONTEH [place] Start: 12-18-2022 End: 12-18-2022 Lab Drop off Ozzy CONTEH [facility] Start: 12-18-2022 End: 12-19-2022 ambulatory Ozzy CONTEH Facility: [facility] Start: 12-05-2022 End: 12-05-[address] FARZAD DODSON . Facility: Start: 11-29-2022 End: 11-30-[address] FARZAD DODSON . Facility:[facility] Start: 11-01-2022 ambulatory [facility] Start: 10-31-2022 End: 11-01-[address] FARZAD DODSON . Facility:[facility] Start: 10-31-2022 End: 10-31-2022 ambulatory [facility] Start: 05-09-2022 End: 05-10-[address] FARZAD DODSON . Facility: Start: 04-05-2022 End: 04-05-2022 Patient encounter procedure Ozzy CONTEH [facility] Start: 03-17-[address] FARZAD DODSON . Facili ty:[facility] Start: 04-22-2019 End: 04-23-2019 Patient encounter procedure KHASE A [facility] Start: 04-11-2019 End: 04-12-2019 Patient encounter procedure KHASE A [facility] Start: 04-04-2019 End: 04-05-2019 Patient encounter procedure KHASE A [facility] Start: 03-25-2019 End: 03-26-2019 Patient encounter procedure KHASE A [facility] Start: 03-21-2019 End: 03-22-2019 Patient encounter procedure [facility] Start: 03-14-2019 End: 03-15-2019 [facility] Start: 03-07-2019 End: 03-08-2019 Patient encounter procedure KHASE A [facility] Start: 02-28-2019 End: 03-01-2019 Patient encounter procedure KHASE A [facility] Start: 02-21-2019 End: 02-22-2019 Patient encounter procedure KHASE A [facility] Start: 02-14-2019 End: 02-15-2019 Patient encounter procedure KHASE A [facility] Start: 02-07-2019 End: 02-08-2019 Patient encounter procedure KHASE A [facility] Start: 01-31-2019 End: 02-01-2019 Patient encounter procedure KHASE A [facility] Start: 01-24-2019 End: 01-25-2019 Patient encounter procedure KHASE A [facility] Start: 01-10-2019 End: 01-11-2019 Patient encounter procedure KHASE A [facility] Start: 11-29-2018 End: 11-30-2018 Patient encounter procedure KHASE A [facility] Start: 11-08-2018 End: 11-09-2018 Patient encounter procedure KHASE A [facility] Start: 10-18-2018 End: 10-19-2018 Patient encounter procedure MUSA Thomas [facility] Start: 10-04-2018 End: 10-05-2018 Patient encounter procedure MUSA Thomas [facility] Start: 09-27-2018 End: 09-28-2018 Patient encounter procedure MUSA Thomas [facility] Start: 09-20-2018 End: 09-21-2018 Patient encounter procedure MUSA Thomas [facility] Start: 09-06-2018 End: 09-07-2018 Patient encounter procedure [facility] Start: 08-30-2018 End: 08-31-2018 Patient encounter procedure RIMA [facility] Start: 08-23-2018 End: 08-24-2018 Patient encounter procedure NASH [facility] Start: 08-16-2018 End: 08-17-2018 Patient encounter procedure RIMA [facility] Start: 08-16-2018 End: 08-16-2018 [facility] Procedures Date Procedure Procedure Detail Performing Clinician [...] [id number] vax Ozzy CONTEH [facility] Comment on above: Result Comment: seco nd dose given 12/08/2020 Payers Date Payer Category Payer Medicare [id number] 1961 Medicare [id number] 1961 Self-pay [id number] 1961 Unknown [id number] 1940 Unknown [id number] 2.16.8 40.1.648053.3.579.2.176 -8 Unknown [id number] 2.16.8 40.1.594817.3.579.2.176 8 Unknown [id number] 2.16.8 40.1.382627.3.579.2.176 -8 Unknown [id number] 2.16.8 40.1.470916.3.579.2.176 1938 Unknown [id number] 2.16.8 40.1.327975.3.579.2.176 - Unknown [id number] 2.16.8 40.1.757160.3.579.2.176 1938 Unknown [id number] 2.16.8 40.1.894605.3.579.2.176 1938 Unknown [id number] 2.16.8 40.1.335801.3.579.2.176 1938 Unknown [id number] 2.16.8 40.1.071023.3.579.2.176 8 Unknown [id number] 2.16.8 40.1.596985.3.579.2.176 1938 Unknown [id number] 2.16.8 40.1.021231.3.579.2.176 8 Unknown [id number] 2.16.8 40.1.655480.3.579.2.176 1938 Unknown [id number] 2.16.8 40.1.261003.3.579.2.176 8 Unknown [id number] 2.16.8 40.1.124093.3.579.2.176 1938 Unknown [id number] 2.16.8 40.1.112764.3.579.2.176 1938 Unknown [id number] 2.16.8 40.1.177482.3.579.2.176 1938 Unknown [id number] 2.16.8 40.1.877798.3.579.2.176 8 Unknown [id number] 2.16.8 40.1.738081.3.579.2.176 1938 Unknown [id number] 2.16.8 40.1.853030.3.579.2.176 8 Unknown [id number] 2.16.8 40.1.328923.3.579.2.176 1938 Unknown [id number] 2.16.8 40.1.425130.3.579.2.176 1938 Unknown [id number] 2.16.8 40.1.961992.3.579.2.176 1938 Unknown [id number] 2.16.8 40.1.330901.3.579.2.176 1938 Unknown [id number] 2.16.8 40.1.733603.3.579.2.176 1938 Unknown [id number] 2.16.8 40.1.540619.3.579.2.176 1938 Unknown [id number] 2.16.84 0.1.679265.3.579.2.593 1938 Unknown [id number] 2.16.84 0.1.060372.3.579.2.593 1938 Unknown [id number] 2.16.84 0.1.197766.3.579.2.593 1938 Unknown [id number] 2.16.84 0.1.823353.3.579.2.593 1938 Unknown [id number] 2.16.84 0.1.487629.3.579.2.593 1938 Unknown [id number] 2.16.84 0.1.480782.3.579.2.593 1938 Unknown [id number] 2.16.84 0.1.666306.3.579.2.593 1938 Unknown [id number] 2.16.84 0.1.757182.3.579.2.593 1938 Unknown [id number] 2.16. 840.1.089530.3.579.2.175 1938 Unknown [id number] 2.16.840 .1.705736.3.579.2.1259 1938 Unknown [id number] 2.16.8 40.1.739125.3.579.2.727 1938 Unknown [id number] 2.16.8 40.1.009717.3.579.2.727 1938 Unknown [id number] 2.16.8 40.1.300333.3.579.2.727 1938 Unknown [id number] 2.16.8 40.1.804933.3.579.2.727 1938 Unknown [id number] 2.16.8 40.1.206695.3.579.2.727 1938 Unknown [id number] 2.16.8 40.1.267194.3.579.2.727 1938 Unknown [id number] 2.16.8 40.1.655308.3.579.2.727 1938 Unknown [id number] 2.16.8 40.1.094210.3.579.2.727 Social History Date Type Detail Facility Start: 08-01-2021 Tobacco smoking status Ex-smoker (fi nding) [facility] Sex Assigned At Male [facility] Start: 06-18-2023 End: 08-27-2023 Tobacco smoking status Never smoked tobacco (finding) [facility] Tobacco smoking status Never [facility] Functional Status Date Assessment Result Facility 09-24-2023 Functional Status N/A [facility] 08-27-2023 Functional Status N/A [facility] 06-18-2023 Functional Status N/A [facility] Clinical Notes 12-05-2021 to 09-28-2023 Note Date & Type Note Facility 09-28-2023 Note [facility] Subjective Jose Ferreira is [...] history including paroxysmal atrial fibrillation and elevated [id number] score of 6 who is not on anticoagulation therapy due to history of GI bleeding, recurrent major falls and excessive bruising. [facility] Recently had issues with urinary obstruction and [...] in the e (more content not included)... [facility] 09-24-2023 Hospital Discharge instructions Patient Education 09/24/2023 [...] and water are not available, use hand blind hanger. Disconnect the bag from the catheter and immediately attach a new bag to the catheter. Empty the used bag completely. Clean the used bag according to the hostler helper's instructions, or as told by your health care provider. Let the bag dry completely, and put it in a clean plastic bag before storing it. General instructions Always wash your hands before and after caring for your catheter and collection bag. Use soap and water. If soap and water are not available, use hand blind hanger. Always make sure there are no leaks [...] provider. Document Revised: 08/15/2022 Document Reviewed: 08/15/2022 [employer] Patient Education 2022 [employer] Follow Up Care 06/18/2023 13:16:11 With:YADY SALCIDO, Ozzy Velasquez, URL Address: [facility] [address] , [place] [address]- [phone] When: Unknown [facility] 08-31-2023 Hospital Discharge instructions Follow Up Care 08/31/2023 09:10:09 With:YADY SALCIDO, Ozzy Velasquez, KIANAL Address: [facility] [address] [place] [address]- [phone] When: Unknown Comments:f/u already scheduled 09/24/23 [facility] 08-27-2023 Hospital Discharge instructions Patient Education 08/27/2023 [...] and water are not available, use hand blind hanger. Disconnect the bag from the catheter and immediately attach a new bag to the catheter. Empty the used bag completely. Clean the used bag according to the hostler helper's instructions, or as told by your health care provider. Let the bag dry completely, and put it in a clean plastic bag before storing it. General instructions Always wash your hands before and after caring for your catheter and collection bag. Use soap and water. If soap and water are not available, use hand blind hanger. Always make sure there are no leaks [...] provider. Document Revised: 08/15/2022 Document Reviewed: 08/15/2022 [employer] Patient Education 2022 [employer] Follow Up Care 08/15/2023 08:27:59 With:YADY SALCIDO, Ozzy Velasquez, URL Address: [facility] [address] [place] [address]- When: Unknown Comments:f/u appt already scheduled [facility] 08-22-2023 Note Pre Op Cardiovascula r evaluation RCRI- 3 points Class IV Risk 15.0 % 30-day risk of , CO, or cardiac arrest From a cardiology perspective pt is moderate risk for a low- moderate risk procedure cystoscopy and suprapubic catheter placement with Dr. Conteh. Pt may hold ASA and pletal for 5-7 days prior to procedure and resume all meds post op. Please monitor hemodynamics carefully and prevent any major fluid shifts. Thank You, Georgie Munoz [facility] 08-06-2023 Note Patient and family p [...] further d/w Dr Denson or Anisha Roach FRAME MAKER for decision making process. 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 [facility] 08-06-2023 Note [facility] CARDIOLOGY PROGR ESS NOTE [...] he is lucila (more content not included)... [facility] 08-06-2023 Note Patient here for 4 m [...] All other systems reviewed and are negative. [facility] 06-18-2023 Hospital Discharge instructions Patient Education 06/18/2023 [...] under a microscope. This is called the Worthington score and the total score can range from 6 10, indicating how likely it is that the cancer will spread (metastasize) to other parts of the body. The higher the score, the greater the likelihood that the cancer will spread. Lisy 6 or lower: This indicates that the cancer cells look similar to normal prostate cells (well differentiated). Worthington 7: This indicates that the cancer cells look somewhat similar to normal prostate cells (moderately differentiated). Worthington 8, 9, or 10: This indicates that [...] stress of having cancer. General instructions Take bxnu-dva-qfjnqzl and prescription medicines only as told by your health care provider. If you have to go to the hospital, notify your cancer specialist (oncologist). Keep all follow-up visits. This is important. Where to find more information [place] [employer]: www.cancer.org [place] [employer] Oncology: www.cancer.net National Cancer [place]: www.cancer.gov Contact a health care provider if: [...] provider. Document Revised: 01/04/2022 Document Reviewed: 01/04/2022 [employer] Patient Education 2022 [employer] Follow Up Care 12/18/2022 13:44:52 With:YADY SALCIDO, Ozzy Velasquez, URL Address: [facility] [address] [place] [address]- [phone] When:Within 3 Month(s) Comments:PSA (and possible Lupron inj) [facility] 04-16-2023 Note Much improved with h olding of lasix, currently remains euvolemic without any s/s of fluid overload Activity tolerance has greatly improved [facility] 04-16-2023 Note Continue lovastatin [facility] 04-16-2023 Note Coronary artery dise ase is Stable without any concerning symptoms Continue GDMT- ASA, toprol, lovastatin continue risk factor modifications- heart healthy diet, regular exercise as tolerated and continue all medications. [facility] 04-16-2023 Note Patient here for 2 w hydaburg follow up hypotension. He was started on [...] All other systems reviewed and are negative. [facility] 04-16-2023 Note [facility] CARDIOLOGY PROGR ESS NOTE [...] etiology. No abno (more content not included)... [facility] 04-04-2023 Note Patient here for 1 w hydaburg follow up hypotension and midodrine increase to 10mg bid. BP log from home looks good. Still denies chest pain and lightheadedness. Review of Systems HENT: Positive for hearing loss. Cardiovascular: Positive for dyspnea on exertion and leg swelling. Hematologic/Lymphatic: Bruises/bleeds easily. Musculoskeletal: Positive for back pain, muscle weakness and myalgias. All other systems reviewed and are negative. 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 His linux unix administrator started him on midodrine. He has been [...] nebulizer solution, I (more content not included)... [facility] 03-28-2023 Note Cardiovascular Medic [facility] SUBJECTIVE Chief Complaint Patient presents with [...] been having issues with low BP. His linux unix administrator started him on midodrine. 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 ([facility]) Type 2 diabetes mellitus with diabetic peripheral angiopathy and gangrene, with long-term current use of insulin ([facility]) Type 2 diabetes mellitus, uncontrolled, with neuropathy Stage 3b chronic kidney disease ([facility]) Past Medical History: Diagnosis Date Atrial fibrillation ([facility]) CHF (congestive heart failure) ([facility]) Coronary artery disease Diabetes mellitus ([facility]) GI bleed Hyperlipidemia Hypertension Second degree AV [...] (Welchol) 625 mg (more content not included)... [facility] 03-28-2023 Note Patient here for 3 m [...] All other systems reviewed and are negative. [facility] 01-01-2023 Note [facility] Subjective Jose Ferreira is a 82 [...] insulin lispro (HumaL (more content not included)... [facility] 10-31-2022 Note Patient here to jonny wadsworth [...] All other systems reviewed and are negative. 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 ([facility]) Chronic systolic heart failure ([facility]) Coronary atherosclerosis Diabetic ulcer of left heel associated with type 2 diabetes mellitus, with fat layer exposed ([facility]) Dry gangrene ([facility]) Foot osteomyelitis ([facility]) Gastroesophageal reflux disease Gastrointestinal hemorrhage Glycosuria History of malignant neoplasm of prostate History of renal calculi Hyperlipidemia Hypertension Male urinary stress incontinence Onychomycosis Open wound Acute decompensated heart failure ([facility]) Peritonitis ([facility]) Psychiatric problem 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 [facility] 12-05-2021 Note MR#: [id number] I [facility] Pt. Name: Jose Ferreira Admitted: 12/02/2021 Discharged: [...] an 81-year-old male, who initially presented to [facility] with complaint of chest pain and shortness of breath. Initially, chest pain was intermittent and midsternal and sharp. It was noted during his stay at [facility] that he also having intermittent runs of ventricular tachycardia with potential atrial fibrillation as well. Pacemaker was interrogated at the [facility] facility. E[facility] from [facility] noted atrial fibrillation with RVR and the patient was started on amiodarone infusion with amiodarone bolus prior to the infusion. On arrival, the patient no longer on amiodarone infusion. Repeat E[facility] at the [facility] showed atrial fibrillation with RVR with right bundle branch block, which was noted on previous EKG. At that time, the patient was denying any shortness of breath, any chest pain, fever, [facility] was 2.4. [...] Avilez MD Date Trans: 12/05/2021 02:41 P/salvador [id number] cc: Farzad Dodson M.D. [address], [facility] [address] Elyse Denson M.D. Heart Failure/ Transplant Mailstop [address] [facility] [address] [facility] Evaluation + Plan note No data available for this section [facility] Evaluation + Plan note Future Appointments Appointment Date:06/18/2023 11:15:00 AM Scheduled Provider:Ozzy CONTEH MD [facility] Type:URO Office Visit [facility] Evaluation + Plan note Future Appointments Appointment Date:09/24/2023 10:45:00 AM Scheduled Provider:Ozzy CONTEH MD Location:[facility] Appointment Type:URO Office Visit Diagnostic Tests PendingPSA Total 8/28/23 [facility] [employer] Evaluation + Plan note Future Appointments Appointment Date:09/24/2023 10:45:00 AM Scheduled Provider:Ozzy CONTEH MD Location:[facility] [place] Appointment Type:URO Office Visit [facility] [employer] Evaluation + Plan note Future Appointments Appointment Date:10/19/2023 10:30:00 AM Scheduled Provider: Location:[facility] [place] Appointment Type:URO Nurse Visit [facility] [employer] Hospital Discharge instructions No data available for this section [facility] [employer] Progress note No data available for this section [facility] [employer] Summary Purpose Family History No Family History [...] section and content) DATE CREATED AUTHOR 04/23/2019 [facility] DATE CREATED AUTHOR AUTHOR'S ORGANIZ ATION 10/21/2021 [facility] DATE CREATED AUTHOR AUTHOR'S ORGANIZ ATION 02/28/2022 [facility] DATE CREATED AUTHOR AUTHOR'S ORGANIZ ATION 02/16/2023 [facility] DATE CREATED AUTHOR AUTHOR'S ORGANIZ ATION 08/31/2023 [facility] DATE CREATED AUTHOR AUTHOR'S ORGANIZ ATION 09/28/2023 [facility] DATE CREATED AUTHOR AUTHOR'S ORGANIZ ATION 09/30/2023 [facility] DATE CREATED AUTHOR AUTHOR'S ORGANIZ ATION 10/12/2023 Eduardo Pickett [facility] Care Team (unrecognized sect ion and content) Personnel Name: Farzad Dodson MD Address: [address] [place] [address] Personnel Name: Farzad Dodson MD Address: Address: [address] [place] [address] Personnel Name: Farzad Dodson MD Address: Address: [address] [place] [address] Personnel Name: Farzad Dodson MD Address: Address: [address] [place] [address] Personnel Name: Farzad Dodson MD Address: Address: [address] [place] [address] Personnel Name: Farzad Dodson MD Address: Address: [address] [place] [address] FOR RECORDS PERTAINING TO PATIENTS WHO ARE [...] BE BASED ON THE PRIMARY CLINICAL RECORDS. [employer] provides no warranty or guarantee of the accuracy or completeness of information in this document.
[2023-10-19 02:00] LABS: Glucometer 117 mg/dL (74-106)
[2023-10-19 03:27] LABS: Glucometer 157 mg/dL (74-106)
--- NOTE | 2023-10-19 04:01 | W.PM.TELEPN ---
Progress Note: Subjective Subjective Interval history: This is 83 years old gentleman, known to me from previous admission, who sent over from long-term care facility for evaluation of confusion, low body temperature, low blood glucose levels. Patient is poor historian and unable to verbalize reliable information. He has been discharged from this hospital 2 days ago after treatment for sepsis. At that time PICC line was placed. Patient continued to be on IV antibiotics. Patient was recently made DNR [id number], per family and patient's request. On evaluation to emergency room patient found to be slightly hypothermic and hypoglycemic. Responded to initial treatment. More coherent now. Patient has PICC line and AICD in place. Exam Narrative Exam Narrative: Physical Exam: Not in distress, pleasant, hard of hearing, cooperative, Head - atraumatic, eyes - pupils equal, round, reactive to light, extra ocular movement intact, MMM Neck - supple, thyroid not enlarged, LN not palpated Lungs - clear to auscultation, no dullness on percussion CVS - heart sounds S1, S2, no additional murmurs gallop, regular rate and rhythm Gastrointestinal?abdomen is soft, non-tender, non-distended, no organomegaly, positive bowel sounds Extremities no clubbing, cyanosis or edema Neurological?cranial nerve II?XII grossly intact, no meningeal signs, no cerebellar signs, no sensory deficit Musculoskeletal - DJD related changes in multiple joints, no effusions, ROM preserved Dermatological - the skin dry, warm, no rashes Psychiatric?patient has normal affect AICD in place PICC line in place Constitutional Vital Signs, click to edit/add: Last Vital Signs Temp 97.3 F L 10/19/23 01:15 Pulse 62 10/19/23 01:15 Resp 14 10/19/23 01:15 BP 105/62 10/19/23 01:15 Pulse Ox 95 10/19/23 01:15 O2 Del Method Nasal Cannula 10/19/23 01:15 O2 Flow Rate 5 10/19/23 01:15 Progress Note: Objective Labs Labs: Short CBC 10/18/23 Range/Units 23:03 WBC 14.0 H (4.0-11.0) 10^3/uL Hgb 9.7 L (14.0-18.0) g/dL Hct 32.2 L (42.0-54.0) % Plt Count 150 (150-450) 10^3/uL BMP 10/18/23 23:03 Sodium 136 Potassium 3.9 Chloride 101 Carbon Dioxide 25.9 BUN 52.0 H Creatinine 2.30 H Glucose 150 H Calcium 9.1 Urine 10/18/23 Range/Units 23:00 Urine Color Yellow (YELLOW) Urine Clarity Clear (CLEAR) Urine pH 5.0 (5.0-9.0) Ur Specific [place] >=1.030 A (1.005-1.025) Urine Protein 30 A (NEG/TRACE) mg/dL Urine Glucose (UA) Negative (NEGATIVE) mg/dL Progress Note: A&P Assessment and Plan (1) Hypothermia: Assessment and Plan: Probably related to underlying infection. Patient responding to repeated measures (2) Hypoglycemia: Assessment and Plan: I am going to hold off long-acting insulin. Patient responding to IV glucose boluses. Continue with Accu-Cheks and insulin sliding scale only (3) Chronic UTI: Assessment and Plan: Continue antibiotics via PICC line (4) Dehydration: Assessment and Plan: Patient to be continued to IV fluid to switch patient (5) Hypoxia: Assessment and Plan: Improved with supplemental oxygen Plan As the provider for the telehealth service, I attest that I introduced myself to the patient, provided my credentials, disclosed by location and determined that based on a review of the patient's chart and discussion with members of the patient's treatment team, telemedicine via real-time, 2 way, and interactive audio and video platform is an appropriate and effective means of providing the service. ?The patient and I mutually agree this visit is appropriate for telemedicine. ?The virtual encounter was taken place from? [place], [place]. ?The encounter took approximately 35 minutes. ?The nurse was present during the entire time and I was able to move the stethoscope in appropriate directions. ?The patient was evaluated at the Hospital ? Portions of this note may be dictated using [employer] voice recognition software. Variances in spelling and vocabulary are possible and unintentional. Not all errors may be caught and/or corrected. Please notify the author if any discrepancies are noted and/or if the meaning of any statement is unclear.? ? Patient verbally consented for treatment via video visit with patient currently located at the [facility] and provider located in [place]. Telemedicine Attestation Telemedicine Attestation I conducted this encounter from [[place]] via secure live, [id number] video conference with the patient, located at [facility] with [Hypoglycemia]. Prior to the interview, the risks and benefits of telemedicine were discussed with the patient and verbal consent was obtained.
[2023-10-19] MEDS: 0.9 % SODIUM CHLORIDE 1,000 ML 75 ML IV ×2 (04:57→19:39)
[2023-10-19] MEDS: AZTREONAM 1,000 MG in 0.9 % SODIUM CHLORIDE 50 ML 100 MG IV ×2 (05:54→16:29)
[2023-10-19 06:11] LABS: Basophils Percent Auto 0.3 % (0.2-2.0); Eosinophils Absolute Auto 0.1 10^3/uL (0.0-0.7); Eosinophils Percent Auto 0.8 % (0.9-7.0); Hematocrit 30.8 % (42.0-54.0); Hemoglobin 9.5 g/dL (14.0-18.0); Immature Granulocytes Abs Auto 0.09 10^3/uL (0.00-0.03); Immature Granulocytes Pct Auto 0.7 % (0.0-0.5); Lymphocytes Absolute Auto 1.2 10^3/uL (1.2-3.8); Lymphocytes Percent Auto 9.8 % (20.5-60.0); Mean Corpuscular HGB Conc 30.8 g/dL (29.9-35.2); Mean Corpuscular Hemoglobin 30.4 pg (25.9-34.0); Mean Corpuscular Volume 98.7 fL (80.0-94.0); Mean Platelet Volume 10.7 fL (9.5-13.5); Monocytes Absolute Auto 0.3 10^3/uL (0.3-0.8); Monocytes Percent Auto 2.5 % (1.7-12.0); Neutrophils Absolute Auto 10.8 10^3/uL (1.4-6.5); Neutrophils Percent Auto 85.9 % (43.0-75.0); Platelet Count 160 10^3/uL (150-450); Red Blood Count 3.12 10^6/uL (4.70-6.10); Red Cell Distribution Width 14.3 % (11.0-15.0); White Blood Count 12.6 10^3/uL (4.0-11.0)
[2023-10-19 06:37] LABS: Anion Gap 12.1; BUN Creatinine Ratio 22.4; Calcium 8.8 mg/dL (8.5-10.1); Carbon Dioxide 27.2 mmol/L (21.0-32.0); Chloride 102 mmol/L (98-107); Estimated GFR (African America 36 (>=60); Estimated GFR (Non-African Ame 30 (>=60); Glucose 144 mg/dL (74-106); Potassium 4.3 mmol/L (3.5-5.1); Sodium 137 mmol/L (136-145)
[2023-10-19 07:30] LABS: Lactate/Lactic Acid 0.9 mmol/L (0.4-2.0); Troponin I High Sensitivity 11.5 pg/mL (4.0-76.1)
[2023-10-19 07:33] LABS: Magnesium 1.9 mg/dL (1.8-2.4)
--- NOTE | 2023-10-19 08:00 | P.HP_ITS ---
H&P: HPI History of Present Illness Chief complaint: Extreme Weakness/CVA Symptoms Narrative: Patient presents to the emergency room with altered mental status. Found to have significant hypoglycemia as well as hypothermia. Patient mated for workup and treatment of same Review of Systems ROS Status of ROS 10 or more systems reviewed and unremark able except as noted in history and below [facility] Medical History (Updated 10/20/23 @ 00:00 by ) Hypothermia ?T68.XXXA - Hypothermia, initial encounter (ICD-10) Hypoglycemia ?E16.2 - Hypoglycemia, unspecified (ICD-10) Septic shock ?A41.9 - Sepsis, unspecified organism (ICD-10) ?R65.21 - Severe sepsis with septic shock (ICD-10) Chronic UTI ?N39.0 - Urinary tract infection, site not specified (ICD-10) Chronic kidney disease ?N18.9 - Chronic kidney disease, unspecified (ICD-10) Dehydration ?E86.0 - Dehydration (ICD-10) Counseling regarding end of life decision making ?Z71.89 - Other specified counseling (ICD-10) Pulmonary edema ?J81.1 - Chronic pulmonary edema (ICD-10) Bilateral pneumonia ?J18.9 - Pneumonia, unspecified organism (ICD-10) Acute respiratory distress ?R06.03 - Acute respiratory distress (ICD-10) Hypotension ?I95.9 - Hypotension, unspecified (ICD-10) Hypoxia ?R09.02 - Hypoxemia (ICD-10) THOMAS (acute kidney injury) ?N17.9 - Acute kidney failure, unspecified (ICD-10) Sepsis ?A41.9 - Sepsis, unspecified organism (ICD-10) MRSA (methicillin resistant Staphylococcus aureus) ?A49.02 - Methicillin resistant Staphylococcus aureus infection, unspecified site (ICD-10) Gangrene ?I96 - Gangrene, not elsewhere classified (ICD-10) Acute osteomyelitis of ankle or foot ?M86.179 - Other acute osteomyelitis, unspecified ankle and foot (ICD-10) Constipation ?K59.00 - Constipation, unspecified (ICD-10) Dorsalgia ?M54.9 - Dorsalgia, unspecified (ICD-10) Cervicalgia ?M54.2 - Cervicalgia (ICD-10) Maintenance antineoplastic chemotherapy ?Z51.11 - Encounter for antineoplastic chemotherapy (ICD-10) COVID-19 ?U07.1 - COVID-19 (ICD-10) Cognitive communication deficit ?R41.841 - Cognitive communication deficit (ICD-10) Dizziness and giddiness ?R42 - Dizziness and giddiness (ICD-10) Muscle weakness ?M62.81 - Muscle weakness (generalized) (ICD-10) Edema ?R60.9 - Edema, unspecified (ICD-10) Diarrhea ?R19.7 - Diarrhea, unspecified (ICD-10) Stridor ?R06.1 - Stridor (ICD-10) Cataract ?H26.9 - Unspecified cataract (ICD-10) Hearing loss ?H91.90 - Unspecified hearing loss, unspecified ear (ICD-10) Tachycardia ?R00.0 - Tachycardia, unspecified (ICD-10) Chronic pain ?G89.29 - Other chronic pain (ICD-10) Insomnia ?G47.00 - Insomnia, unspecified (ICD-10) Osteoarthritis ?M19.90 - Unspecified osteoarthritis, unspecified site (ICD-10) Dysphagia ?R13.10 - Dysphagia, unspecified (ICD-10) Hyperglycemia ?R73.9 - Hyperglycemia, unspecified (ICD-10) Syncope and collapse ?R55 - Syncope and collapse (ICD-10) Ulcer of right foot with necrosis of bone ?L97.514 - Non-pressure chronic ulcer of other part of right foot with necrosis of bone (ICD-10) Vitamin B deficiency ?E53.9 - Vitamin B deficiency, unspecified (ICD-10) Nonrheumatic mitral (valve) insufficiency ?I34.0 - Nonrheumatic mitral (valve) insufficiency (ICD-10) Hypomagnesemia ?E83.42 - Hypomagnesemia (ICD-10) Obstructive sleep apnea ?G47.33 - Obstructive sleep apnea (adult) (pediatric) (ICD-10) Depression ?F32.A - Depression, unspecified (ICD-10) Vitamin D deficiency ?E55.9 - Vitamin D deficiency, unspecified (ICD-10) Hyperlipidemia ?E78.5 - Hyperlipidemia, unspecified (ICD-10) Spondylosis of cervical region without myelopathy or radiculopathy ?M47.812 - Spondylosis without myelopathy or radiculopathy, cervical region (ICD-10) Spinal stenosis ?M48.00 - Spinal stenosis, site unspecified (ICD-10) PVD (peripheral vascular disease) ?I73.9 - Peripheral vascular disease, unspecified (ICD-10) Cerebral ischemia ?I67.82 - Cerebral ischemia (ICD-10) Hypertensive heart and chronic kidney disease with heart failure ?I13.0 - Hypertensive heart and chronic kidney disease with heart failure and stage 1 through stage 4 chronic kidney disease, or unspecified chronic kidney disease (ICD-10) Hypertension ?I10 - Essential (primary) hypertension (ICD-10) Acute kidney failure ?N17.9 - Acute kidney failure, unspecified (ICD-10) Acute hyperkalemia ?E87.5 - Hyperkalemia (ICD-10) Fall ?W19.XXXA - Unspecified fall, initial encounter (ICD-10) Acute UTI ?N39.0 - Urinary tract infection, site not specified (ICD-10) Weakness ?R53.1 - Weakness (ICD-10) Acute hyperglycemia ?R73.9 - Hyperglycemia, unspecified (ICD-10) Dehydration ?E86.0 - Dehydration (ICD-10) Adult failure to thrive ?R62.7 - Adult failure to thrive (ICD-10) Acute UTI ?N39.0 - Urinary tract infection, site not specified (ICD-10) Hydroureteronephrosis ?N13.30 - Unspecified hydronephrosis (ICD-10) Acute renal injury ?N17.9 - Acute kidney failure, unspecified (ICD-10) History of blood transfusion ?Z92.89 - Personal history of other medical treatment (ICD-10) Anemia ?D64.9 - Anemia, unspecified (ICD-10) Arthritis ?M19.90 - Unspecified osteoarthritis, unspecified site (ICD-10) Asthma ?J45.909 - Unspecified asthma, uncomplicated (ICD-10) Pneumonia ?J18.9 - Pneumonia, unspecified organism (ICD-10) Tremor ?R25.1 - Tremor, unspecified (ICD-10) Amputation toe ?S98.139A - Complete traumatic amputation of one unspecified lesser toe, initial encounter (ICD-10) Abnormal TRUS (transrectal ultrasound), prostate ?R93.89 - Abnormal findings on diagnostic imaging of other specified body structures (ICD-10) Elevated PSA ?R97.20 - Elevated prostate specific antigen [PSA] (ICD-10) Urinary tract infection ?N39.0 - Urinary tract infection, site not specified (ICD-10) Ulcer of gastric fundus ?K25.9 - Gastric ulcer, unspecified as acute or chronic, without hemorrhage or perforation (ICD-10) Seasonal allergic rhinitis ?J30.2 - Other seasonal allergic rhinitis (ICD-10) Kidney stones ?N20.0 - Calculus of kidney (ICD-10) Glucosuria ?R81 - Glycosuria (ICD-10) H/O esophageal reflux ?Z87.19 - Personal history of other diseases of the digestive system (ICD-10) Diabetes ?E11.9 - Type 2 diabetes mellitus without complications (ICD-10) Atrial fibrillation ?I48.91 - Unspecified atrial fibrillation (ICD-10) Mixed incontinence ?N39.46 - Mixed incontinence (ICD-10) Prostate cancer ?C61 - Malignant neoplasm of prostate (ICD-10) Pacemaker ?Z95.0 - Presence of cardiac pacemaker (ICD-10) Surgical History (Updated 10/19/23 @ 02:07 by Jovana Doty) Presence of urogenital implant ?Z96.0 - Presence of urogenital implants (ICD-10) History of esophagogastroduodenoscopy ?Z98.890 - Other specified postprocedural states (ICD-10) History of colonoscopy ?Z98.890 - Other specified postprocedural states (ICD-10) History of arthroscopy of knee ?Z98.890 - Other specified postprocedural states (ICD-10) History of ear surgery ?Z98.890 - Other specified postprocedural states (ICD-10) H/O hand surgery ?Z98.890 - Other specified postprocedural states (ICD-10) H/O wrist surgery ?Z98.890 - Other specified postprocedural states (ICD-10) H/O cataract extraction ?Z98.49 - Cataract extraction status, unspecified eye (ICD-10) H/O prostate biopsy ?Z98.890 - Other specified postprocedural states (ICD-10) H/O lithotripsy ?Z98.890 - Other specified postprocedural states (ICD-10) H/O radical prostatectomy ?Z90.79 - Acquired absence of other genital organ(s) (ICD-10) Family History (Updated 08/21/23 @ 10:37 by Le Mata NP) Other Alcoholism Family history of lung cancer Social History (Updated 09/11/23 @ 14:56 by Renetta Brewster) Within the past year, how often did you have a drink containing alcohol: never Score interpretation: A score less than 4 is consistent with normal alcohol consumption. Smoking status: Former smoker Non-prescribed substance use: denies use Highest level of school completed/degree received: high school graduate Are you now , , , , never or living with a partner: living with partner Do you think of yourself as: straight/heterosexual Gender Identity: male Meds Home Medications and Allergies Home Medications Medication Instructions Recorded Confirmed Type calcium carbonate 600 mg-vitamin 2 tab PO DAILY 08/21/23 10/19/23 History D3 5 mcg (200 unit) tablet cetirizine 10 mg tablet (All Day 10 mg PO .lunch PRN allergy 08/21/23 10/19/23 History Allergy (cetirizine)) symptoms cilostazol 50 mg tablet 50 mg PO BID 08/21/23 10/19/23 History diphenhydramine-acetaminophen 2 tab PO QPM PRN sleep 08/21/23 10/19/23 History ferrous sulfate 325 mg (65 mg 325 mg PO BID 08/21/23 10/19/23 History iron) tablet (Feosol) fluticasone propionate 50 2 spray intranasal Q12H 08/21/23 10/19/23 History mcg/actuation nasal spray,suspension insulin lispro 100 unit/mL 1 sliding scale dose subcut TID 08/21/23 10/19/23 History subcutaneous pen (Humalog KwikPen (U-100) Insulin) lovastatin 40 mg tablet 80 mg PO DAILY 08/21/23 10/19/23 History midodrine 10 mg tablet 10 mg PO BID 08/21/23 10/19/23 History montelukast 10 mg tablet 10 mg PO DAILY 08/21/23 10/19/23 History multivitamin (Daily Multi-Vitamin 1 tab PO DAILY 08/21/23 10/19/23 History tablet) omeprazole 40 mg capsule,delayed 40 mg PO DAILY 08/21/23 10/19/23 History release citalopram 20 mg tablet (Celexa) 20 mg PO DAILY 09/06/23 10/19/23 History aspirin 325 mg tablet,delayed 325 mg PO DAILY 09/11/23 10/19/23 History release colesevelam 625 mg tablet 1,250 mg PO DAILY 09/11/23 10/19/23 History Aztreonam [Azactam 1000 mg Vial] 1 100 mls/hr IV Q12H 10/16/23 10/19/23 Rx mg amino acids-protein hydrolysate 15 1 ea PO BID #2,880 mL 10/16/23 10/19/23 Rx gram-100 kcal/30 mL oral liquid pkt (Pro-Stat Sugar Free) aztreonam 1 gram solution for 1 g IV Q12H #28 ea 10/16/23 10/19/23 Rx injection fluconazole 200 mg tablet 200 mg PO DAILY #14 tabs 10/16/23 10/19/23 Rx (Diflucan) linezolid in 5% dextrose in water 600 mg IV Q12H #8,400 mL 10/16/23 10/19/23 Rx 600 mg/300 mL intravenous piggyback magnesium oxide 400 mg (241.3 mg 400 mg PO BID #60 tabs 10/16/23 10/19/23 Rx magnesium) tablet food supplemt, lactose-reduced 1 ea PO DAILY 10/19/23 10/19/23 History (Ensure Active Heart Health oral liquid) food supplemt, lactose-reduced 1 ea PO DAILY 10/19/23 10/19/23 History (Ensure Active Protein-Muscle oral liquid) hydroxyzine HCl 25 mg tablet 25 mg PO TID 10/19/23 10/19/23 History ondansetron 4 mg disintegrating 4 mg PO Q6H nausea and vomiting 10/19/23 10/19/23 History tablet promethazine 25 mg tablet 25 mg PO Q6H 10/19/23 10/19/23 History insulin detemir U-100 100 unit/mL 10 unit (0.1 mL) subcut BID #15 mL 10/20/23 Rx (3 mL) subcutaneous pen (Levemir FlexPen) mirtazapine 15 mg tablet 15 mg PO DAILY #30 tabs 10/20/23 Rx tramadol 50 mg tablet 50 mg PO Q6H PRN Pain #120 tabs 10/20/23 Rx Allergies Allergy/AdvReac Type Severity Reaction Status Date / Time amoxicillin [From Augmentin] Allergy Diarrhea Verified 10/06/23 19:37 canagliflozin [From Invokana] Allergy Unknown Verified 10/06/23 19:37 clavulanic acid Allergy Diarrhea Verified 10/06/23 19:37 [From Augmentin] hydroxyzine Allergy Anxiety Verified 10/06/23 19:37 levofloxacin Allergy joint pain Verified 10/06/23 19:37 mirabegron [From Myrbetriq] Allergy Unknown Verified 10/06/23 19:37 pioglitazone [From Actos] Allergy Abdominal Verified 10/06/23 19:37 Pain Exam Constitutional Vital Signs, click to edit/add: Last Vital Signs Temp 97.6 F 10/19/23 05:39 Pulse 63 10/19/23 05:39 Resp 14 10/19/23 05:39 BP 105/62 10/19/23 01:15 Pulse Ox 93 L 10/19/23 05:39 O2 Del Method Nasal Cannula 10/19/23 05:39 O2 Flow Rate 4 10/19/23 05:39 Documenting provider has reviewed patient's vital signs: yes Common normals: apparent distress (Sedated) Chest Common normals: inspection of chest normal Respiratory Common normals: normal respiratory effort and no retractions Cardio Common normals: regular rate, regular rhythm and no murmurs Results Labs Labs: Short CBC 10/18/23 10/19/23 Range/Units 23:03 04:54 WBC 14.0 H 12.6 H (4.0-11.0) 10^3/uL Hgb 9.7 L 9.5 L (14.0-18.0) g/dL Hct 32.2 L 30.8 L (42.0-54.0) % Plt Count 150 160 (150-450) 10^3/uL BMP 10/18/23 10/19/23 23:03 04:54 Sodium 136 137 Potassium 3.9 4.3 Chloride 101 102 Carbon Dioxide 25.9 27.2 BUN 52.0 H 48.0 H Creatinine 2.30 H 2.14 H Glucose 150 H 144 H Calcium 9.1 8.8 Urine 10/18/23 Range/Units 23:00 Urine Color Yellow (YELLOW) Urine Clarity Clear (CLEAR) Urine pH 5.0 (5.0-9.0) Ur Specific [place] >=1.030 A (1.005-1.025) Urine Protein 30 A (NEG/TRACE) mg/dL Urine Glucose (UA) Negative (NEGATIVE) mg/dL Assessment and Plan Assessment and Plan (1) Hypothermia: (2) Hypoglycemia: (3) Chronic UTI: (4) Dehydration: (5) Hypoxia: Plan Hypoglycemia leading to hypothermia with altered mental status, improved from presentation emergency room and sugar improved. Continue to follow throughout the day, very somnolent this morning. If can return to baseline by this afternoon possible discharge back to the [facility]. Medications see list. I will follow patient Jeremy Leukocytosis-this is likely secondary to his previous pneumonia. Continue with treatment as previously outlined. Iron deficiency anemia-continue to supplement Chronic kidney disease stage III-continue to monitor improved this morning Chronic hypotension-continue with home medications Urinary Catheter Management Urinary Catheter Management Suprapubic: Cath placed during this visit: no
[2023-10-19 08:10] LABS: Glucometer 189 mg/dL (74-106)
[2023-10-19] MEDS: INSULIN ASPART 300 UNIT/3 ML PEN SUBQ ×4 (08:55→20:51)
[2023-10-19] MEDS: ALTEPLASE 2 MG, WATER FOR INJECTION,STERILE 2.2 ML IVP ×2 (09:01→09:08)
[2023-10-19] MEDS: LACTOSE -REDUCED (ENSURE ORIGINAL 237 ML LIQUID) PO (09:01)
[2023-10-19] MEDS: FLUTICASONE PROPIONATE 50 MCG NASAL SPRAY 2 SPRAY NS ×2 (09:01→20:50)
[2023-10-19] MEDS: MONTELUKAST SODIUM 10 MG TABLET PO (09:06)
[2023-10-19] MEDS: MIDODRINE HCL 5 MG TABLET 10 MG PO ×2 (09:07→20:49)
[2023-10-19] MEDS: MIRTAZAPINE 15 MG TABLET 45 MG PO (09:07)
[2023-10-19] MEDS: OMEPRAZOLE 40 MG CAPSULE.DR PO (09:07)
[2023-10-19] MEDS: MAGNESIUM OXIDE 400 MG TABLET PO ×2 (09:07→20:50)
[2023-10-19] MEDS: FLUCONAZOLE 100 MG TABLET 200 MG PO (09:07)
[2023-10-19] MEDS: MULTIVITAMIN TABLET 1 TAB PO (09:07)
[2023-10-19] MEDS: ALPRAZOLAM 1 MG TABLET PO ×2 (09:07→20:50)
[2023-10-19] MEDS: ASPIRIN 325 MG TABLET.DR PO (09:07)
[2023-10-19] MEDS: CITALOPRAM HYDROBROMIDE 20 MG TABLET PO (09:07)
[2023-10-19] MEDS: FERROUS SULFATE 325 MG TABLET PO ×2 (09:07→20:50)
[2023-10-19] MEDS: ATORVASTATIN CALCIUM 20 MG TABLET PO (09:07)
[2023-10-19] MEDS: CILOSTAZOL 100 MG TABLET 50 MG PO ×2 (09:07→16:31)
[2023-10-19] MEDS: CALCIUM CARBONATE 600 MG/VITAMIN D3 400 IU TABLET 2 TAB PO (09:07)
[2023-10-19] MEDS: PROSTAT 15 GM PROTEIN/100 CAL 30 ML LIQUID PACKET PO ×2 (09:08→20:49)
[2023-10-19] MEDS: LINEZOLID IN DEXTROSE 5% 600 MG/300 ML PIGGYBACK 300 MG IV (09:21)
--- NOTE | 2023-10-19 09:41 | CM.NOTE ---
Attempted to awaken pt, pt very lethargic and not answering questions. RN aware of pt's condition.
[2023-10-19 11:04] LABS: Glucometer 344 mg/dL (74-106)
[2023-10-19] MEDS: HYDROXYZINE HCL 25 MG TABLET PO ×2 (13:52→20:50)
[2023-10-19] MEDS: GABAPENTIN 100 MG CAPSULE PO ×2 (13:53→20:50)
--- NOTE | 2023-10-19 14:21 | CM.NOTE ---
Reviewed RIVAS form with daughter Ester via phone as no one is present in person. Daughter voiced understanding. Daughter also voices plan is for patient to return to [facility] upon discharge when medically stable.
[2023-10-19 16:11] LABS: Glucometer 298 mg/dL (74-106)
[2023-10-19 20:48] LABS: Glucometer 368 mg/dL (74-106)
[2023-10-19] MEDS: LINEZOLID IN DEXTROSE 5% 600 MG/300 ML PIGGYBACK 150 MG IV (20:52)
[2023-10-20 04:14] VITALS: BP 181/52; PULSE 93; RESP 18; TEMP 36.6; O2SAT 90
[2023-10-20] MEDS: AZTREONAM 1,000 MG in 0.9 % SODIUM CHLORIDE 50 ML 100 MG IV (04:15)
[2023-10-20] MEDS: GABAPENTIN 100 MG CAPSULE PO (04:20)
[2023-10-20] MEDS: HYDROXYZINE HCL 25 MG TABLET PO (04:20)
[2023-10-20 04:38] VITALS: O2SAT 93
[2023-10-20 05:19] VITALS: BP 153/52
[2023-10-20 08:08] LABS: Glucometer 320 mg/dL (74-106)
[2023-10-20 08:32] VITALS: BP 136/79
[2023-10-20] MEDS: INSULIN ASPART 300 UNIT/3 ML PEN SUBQ (08:57)
[2023-10-20] MEDS: LINEZOLID IN DEXTROSE 5% 600 MG/300 ML PIGGYBACK 300 MG IV (09:00)
[2023-10-20] MEDS: LACTOSE -REDUCED (ENSURE ORIGINAL 237 ML LIQUID) PO (09:02)
[2023-10-20] MEDS: PROSTAT 15 GM PROTEIN/100 CAL 30 ML LIQUID PACKET PO (09:02)
--- NOTE | 2023-10-20 09:34 | P.PN_ITS ---
Progress Note: Subjective Subjective Interval history: Still difficult to arouse this morning Exam Constitutional Vital Signs, click to edit/add: Last Vital Signs Temp 97.8 F 10/20/23 04:14 Pulse 93 H 10/20/23 04:14 Resp 18 10/20/23 04:14 BP 136/79 10/20/23 08:32 Pulse Ox 93 L 10/20/23 04:38 O2 Del Method Nasal Cannula 10/20/23 04:38 O2 Flow Rate 3 10/20/23 04:38 Documenting provider has reviewed patient's vital signs: yes Common normals: apparent distress (Sedated) Chest Common normals: inspection of chest normal Respiratory Common normals: normal respiratory effort and no retractions Cardio Common normals: regular rate, regular rhythm and no murmurs Progress Note: A&P Assessment and Plan (1) Hypothermia: (2) Hypoglycemia: (3) Chronic UTI: (4) Dehydration: (5) Hypoxia: Plan Hypoglycemia leading to hypothermia with altered mental status, improved from presentation emergency room and sugar improved. Continue to follow throughout the day, very somnolent this morning. Again the plan will be if he can return to his baseline he can be discharged back to the [facility]. Still very somnolent this morning. Medications were adjusted this morning. I will follow patient at the [facility]. Medications see list. Leukocytosis-this is likely secondary to his previous pneumonia. Continue with treatment as previously outlined. Iron deficiency anemia-continue to supplement Chronic kidney disease stage III-continue to monitor improved this morning Chronic hypotension-continue with home medications Urinary Catheter Management Urinary Catheter Management Suprapubic: Cath placed during this visit: no
[2023-10-20 10:04] LABS: Anion Gap 10.9; BUN Creatinine Ratio 23.9; Calcium 8.6 mg/dL (8.5-10.1); Carbon Dioxide 25.9 mmol/L (21.0-32.0); Chloride 104 mmol/L (98-107); Estimated GFR (African America 50 (>=60); Estimated GFR (Non-African Ame 42 (>=60); Glucose 335 mg/dL (74-106); Potassium 4.8 mmol/L (3.5-5.1); Sodium 136 mmol/L (136-145)
[2023-10-20 10:07] LABS: Basophils Percent Auto 0.2 % (0.2-2.0); Eosinophils Absolute Auto 0.2 10^3/uL (0.0-0.7); Eosinophils Percent Auto 1.8 % (0.9-7.0); Hematocrit 30.6 % (42.0-54.0); Immature Granulocytes Abs Auto 0.05 10^3/uL (0.00-0.03); Immature Granulocytes Pct Auto 0.6 % (0.0-0.5); Lymphocytes Absolute Auto 0.9 10^3/uL (1.2-3.8); Lymphocytes Percent Auto 10.2 % (20.5-60.0); Mean Corpuscular HGB Conc 32.7 g/dL (29.9-35.2); Mean Corpuscular Hemoglobin 31.8 pg (25.9-34.0); Mean Corpuscular Volume 97.5 fL (80.0-94.0); Mean Platelet Volume 10.3 fL (9.5-13.5); Monocytes Absolute Auto 0.4 10^3/uL (0.3-0.8); Neutrophils Absolute Auto 7.6 10^3/uL (1.4-6.5); Neutrophils Percent Auto 83.2 % (43.0-75.0); Platelet Count 146 10^3/uL (150-450); Red Blood Count 3.14 10^6/uL (4.70-6.10); Red Cell Distribution Width 14.1 % (11.0-15.0); White Blood Count 9.1 10^3/uL (4.0-11.0)
== END 2023-10-20 11:35 ==
LOC: ER 10-19 00:15 → MS 10-19 00:50
PROVIDERS: Internal Medicine; Admitting Provider Family Medicine; Emergency Provider Emergency Medicine; PCP Family Medicine; Visit Provider Family Medicine
DX: E11.649 Type 2 diabetes mellitus with hypoglycemia without coma (principal); T68.XXXA Hypothermia, initial encounter; N39.0 Urinary tract infection, site not specified; E86.0 Dehydration; R09.02 Hypoxemia; D72.829 Elevated white blood cell count, unspecified; E11.22 Type 2 diabetes mellitus with diabetic chronic kidney disease; N18.30 Chronic kidney disease, stage 3 unspecified; D50.9 Iron deficiency anemia, unspecified; I95.89 Other hypotension; M19.90 Unspecified osteoarthritis, unspecified site; J45.909 Unspecified asthma, uncomplicated; I48.91 Unspecified atrial fibrillation; G47.00 Insomnia, unspecified; G47.33 Obstructive sleep apnea (adult) (pediatric); F32.A Depression, unspecified; R06.02 Shortness of breath; E78.5 Hyperlipidemia, unspecified; M47.812 Spondylosis without myelopathy or radiculopathy, cervical region; G89.29 Other chronic pain; E55.9 Vitamin D deficiency, unspecified; H91.90 Unspecified hearing loss, unspecified ear; E53.9 Vitamin B deficiency, unspecified; Z79.4 Long term (current) use of insulin; Z79.899 Other long term (current) drug therapy; Z79.82 Long term (current) use of aspirin; Z87.01 Personal history of pneumonia (recurrent); Z89.429 Acquired absence of other toe(s), unspecified side; Z66 Do not resuscitate; Z87.442 Personal history of urinary calculi; Z85.46 Personal history of malignant neoplasm of prostate; Z98.890 Other specified postprocedural states; Z98.49 Cataract extraction status, unspecified eye; Z90.79 Acquired absence of other genital organ(s); Z87.891 Personal history of nicotine dependence; Z95.810 Presence of automatic (implantable) cardiac defibrillator; Z87.19 Personal history of other diseases of the digestive system; Z86.14 Personal history of Methicillin resistant Staphylococcus aureus infection; Z96.0 Presence of urogenital implants
CPT/HCPCS: 36415; 36569; 71045; 80048; 81001; 82948; 83605; 83735; 83880; 84484; 85025; 87040; 87811; 93005; 94761; 96361; 96365; 96366; 96367; 96375; 99285; G0378; J2020; J2997; Q3014